=== PATIENT | male | born 1945 | race Caucasian/White ===

== ENCOUNTER 2017-09-08 09:10 | Emergency (ER) | payer MEDICARE, OTHER, SELFPAY ==
[2017-09-08 09:11] VITALS: BP 126/52; PULSE 55; RESP 18; TEMP 36.8; O2SAT 99; BMI 25.3
--- NOTE | 2017-09-08 09:21 | RAD_ITS ---
STUDY: X-RAY - LEFT ANKLE REASON FOR EXAM: Male, 72 years old. Pain following a fall. TECHNIQUE: 3 view(s) of the ankle. COMPARISON: None. FINDINGS: There is a nondisplaced oblique fracture of the lateral malleolus. Normal medial and lateral malleoli. Normal tibiotalar articulation and ankle mortise. Normal visualized talus and calcaneus. The visualized subtalar, talonavicular, calcaneocuboid and tarsal articulations are normal. Soft tissue swelling. RAD/Ankle min 3 Views IMPRESSION: Nondisplaced oblique fracture of the lateral malleolus with overlying soft tissue swelling. Electronically Signed: Jaziel Hamm MD at 9:49 EST Tel [phone], Service support ,
--- NOTE | 2017-09-08 09:25 | ED.VISSUMM ---
- ER Visit Summary Date of Service: 09/08/17 Chief Complaint: Left ankle injury History of Present Illness: The patient is a 72 M [place] after slipping on the ice and injuring his left ankle. He localizes the pain to the outer aspect of his ankle. He denies paresthesia, anesthesia or motor weakness. He denies prior injury. He denies symptoms of claudication. He is a non-smoker and denies history of diabetes. He denies knee or hip pain. He denies striking his head. He is on Coumadin. Physical Examination: Blood pressure is 126/52 and pulse is 55, which are outside the norm. Examination of left ankle reveals swelling and pain palpation of the lateral malleolus. There is no pain the patient of the medial malleolus. There is no laxity with drawer testing. There is no pain the patient the base of fifth metatarsal. DP pulses absent PT pulses 2+. He does have stigmata peripheral vascular disease with absence of hair on the toes and absence of hair distal portion of the leg. Test Results: Review x-ray of the ankle reveals a nondisplaced spiral oblique fracture distal fibula at the joint line without widening of the mortise. Emergency Department Course and Treatment: Three-view x-ray of the ankle was obtained to evaluate for fracture pain medicine was offered and patient declined. Treatment Plan: Posterior short leg plaster splint for mobilization. Case was discussed with Dr. Pranav Hsu who is on-call for orthopedics. Disposition: Discharge to home with outpatient orthopedic follow-up in 5-7 days Impression: Acute left ankle fracture distal fibula initial encounter This note was generated with [employer] dictation software. It may contain incorrect words, spelling, and punctuation that were not noted in review of the chart prior to signing ED Disposition - Plan for ED Patient: Disposition: Home or Assisted Living Chief Complaint: Lower Extremity Injury Instructions: ED Fx Ankle Lateral Malleolus Referrals: Alejandra Lee MD [Primary Care Provider] - Pranav Hsu DO [STAFF PHYSICIAN] - 5-7 Days Additional Instructions: Keep left foot elevated the first 3-4 days. Elevation means your toes above your nose. Ice 20-30 minutes of time 6-8 times a day for 2-3 days.
--- NOTE | 2017-09-08 11:04 | ED.VISSUMM ---
- ER Visit Summary Date of Service: 09/08/17 Chief Complaint: [] History of Present Illness: The patient is a 72 M [] Physical Examination: [] Test Results: [] Emergency Department Course and Treatment: [] Treatment Plan: [] Disposition: [] Impression: [] This note was generated with [employer] dictation software. It may contain incorrect words, spelling, and punctuation that were not noted in review of the chart prior to signing ED Disposition - Plan for ED Patient: Disposition: Home or Assisted Living Chief Complaint: Lower Extremity Injury Instructions: ED Fx Ankle Lateral Malleolus Referrals: Alejandra Lee MD [Primary Care Provider] - Pranav Hsu DO [STAFF PHYSICIAN] - 5-7 Days Additional Instructions: Keep left foot elevated the first 3-4 days. Elevation means your toes above your nose. Ice 20-30 minutes of time 6-8 times a day for 2-3 days.
[2017-09-08 11:27] VITALS: BP 141/81; PULSE 52; RESP 14; O2SAT 99
--- NOTE | 2017-09-08 11:32 | ED.RN ---
Verbal and written d/c instructions given. All questions answered. Skin w/d. ABCs intact. Gait steady out of department.
== END 2017-09-08 11:30 | disposition home or self-care (01) ==
PROVIDERS: Emergency Provider Emergency Medicine; Family Provider Internal Medicine; PCP Internal Medicine
DX: S82.65XA Nondisplaced fracture of lateral malleolus of left fibula, initial encounter for closed fracture (principal); W00.0XXA Fall on same level due to ice and snow, initial encounter; Y93.9 Activity, unspecified; Y92.9 Unspecified place or not applicable; Y99.9 Unspecified external cause status; I48.91 Unspecified atrial fibrillation; I73.9 Peripheral vascular disease, unspecified; Z79.01 Long term (current) use of anticoagulants; Z79.899 Other long term (current) drug therapy
CPT/HCPCS: 29505; 73610; 99283

== ENCOUNTER → 2019-01-07 10:08 | Outpatient (CLI) | payer MEDICARE, OTHER, SELFPAY ==
[2019-01-07 10:25] LABS: International Normalized Ratio 2.8
== END ==
PROVIDERS: PCP Internal Medicine; Visit Provider Internal Medicine
DX: I48.91 Unspecified atrial fibrillation (principal)
CPT/HCPCS: 85610

== ENCOUNTER 2019-02-15 17:00 | Outpatient (RCR) | payer MEDICARE, OTHER, SELFPAY ==
--- NOTE | 2018-12-24 13:21 | HP.PTEVAL_ITS ---
Patient's Visit Information GAGANDEEP Marion DUARTE is a 73 year old M referred to Physical Therapy by Alejandra Lee MD with a diagnosis of LEFT SHOULDER IMPINGEMENT. Date of Evaluation: 12/24/18 Physical Therapist: Froilan Bay PT, Cert MDT, OCS - Visit Plan Frequency: 2x /Week Duration: 4 Weeks Plan: PRECAUTIONS: PACEMAKER. INTERVENTIONS TO INCLUDE RTC /SCAPULAR STRENGTHENING ,MODALTIES PRN - Subjective Findings: This 73 y/o male presents to physical therapy with left shoulder pain.This patient has had for 4 months ago ,seen DR at [facility] did some exercises . Sympoms got better. But currently ,pain is more sore work at house overhead activities. Left shoulder grossly described as ache and tingling in arm . Aggravated factors rest ,extreme overhead activities . Symptoms affects sleeping on left side. Symmtoms better with movement. Dr was provided injection. Patient has had pain in left shoulder few years ago. Patient symptoms affects ADL'S and housework tasks. Patient symptoms affect QOL.PRECAUTION: PACEMAKER. SOCIAL: . VOCATION: retired - Pain Left Shoulder Pain Intensity (Out of 10): 3 Pain Intensity Range: 10 - Objective POSTURE: rounded shoulders ,head foward. PALAPTION: UNREMARKABLE. NEURO: intact ,some tingling. AROM: flexion 150 degrees,abduction 150 degrees,ER 88 degrees,IR 75 degrees. FUNCTIONAL TEST: BEHIND NECK C5,IR L1. MMT: RTC 4/5 ,DELTOID 4-/5,SCAPULAR STRENGTH 3+/5 - Special Tests C/S Radiculapathy - Left Upper limb tension test: Negative C/S Radiculapathy - Right Upper limb tension test: Negative C/S Radiculapathy - Left Spurlings: Negative C/S Radiculapathy - Right Spurlings: Negative C/S Radiculapathy - Left Cervical distraction: Negative C/S Radiculapathy - Right Cervical distraction: Negative Vertebral Artery Test: Negative L Shoulder External Rotation Lag Test - RC Tear: Negative L Shoulder Supine Impingement Test - RC Tear: Negative L Shoulder Lift Off Test - Subscapular Tear: Negative L Shoulder Drop Sign - IS Test: Negative L Shoulder Empty Can - SS: Negative L Shoulder Neer - Impingement: Negative L Shoulder Geronimo Ciro - Impingement: Negative - Goals Goal 1:: Independant with HEP. Goal Time Frame: 2-4 Weeks Goal 2:: Independant with posture for ADL'S Goal Time Frame: 2-4 Weeks Goal 3:: Decrease pain left shoulder by 60% or greater to improve function Goal Time Frame: 2-4 Weeks Goal 4:: Patient to increase quick dash shoulder disablity score by 5 points to improve QOL. Goal Time Frame: 2-4 Weeks Goal 5:: Patient to improve ablitity with housework tasks and activities above 90 degrees Goal Time Frame: 2-4 Weeks - Rehabilitation Potential Physical Therapy Diagnosis: This patient has left shoulder pain with OH activities and working overhead with pain impaits function,along with decrease posture. Rehabilitation Potential: Good - Anticipated Interventions Patient/Client Instruction: Educate patient on: Condition, Plan of Care For the Purpose of:: To decrease pain, To increase ROM, To improve muscle performance and motor function, To improve ability to perform ADL's, To increase tolerance to activity/condition/position, To improve ability of physical actions for home/community/work/leisure, To improve health of tissue, To decrease soft tissue restriction, To increase flexibility/ROM, To improve ability to perform tasks related to life management Therapeutic Exercise to Include: Strength training, Postural training, Flexibilty training, Active ROM For the Purpose of:: To decrease pain, To increase ROM, To improve muscle performance and motor function, To improve ability of physical actions for home/community/work/leisure, To improve health of tissue, To decrease soft tissue restriction, To increase flexibility/ROM, To improve ability to perform tasks related to life management TENS: Yes IF ES: Yes Cryotherapy (ice pack, ice massage): Yes Thermo therapy (hot pack): Yes Ultrasound (thermal/non thermal): Yes For the Purpose of:: To decrease pain, To increase ROM, To improve nutrient delivery to tissue, To increase oxygenation perfusion, To improve health of tissue, To decrease soft tissue restriction Thank you for the opportunity to evaluate your patient. For Medicare and Medicare HMO plans, please review the plan of care and approve it. It will need to be FAXED BACK to us at [phone] for Medicare purposes. For Medicare only, by signing this I certify the plan of care. Please let me know if there are questions or concerns regarding this plan of care. Physician Signature: Date:
--- NOTE | 2019-02-15 17:36 | HP.PTDCSUM ---
HP - PT D/C Summary It has been my pleasure to treat GAGANDEEP DUARTE under orders from Alejandra Lee MD, for the diagnosis of LEFT SHOULDER IMPINGEMENT for a total of 6 visit(s). Discharge Date: 02/15/19 Please see the following information for a summary of their discharge status. - Subjective Subjective: More tingling .. exercises help .Sore at when sleeping . Able to perform ADL'S - Pain Left Shoulder Pain Intensity (Out of 10): 1 - Overall Improvement % Improvement: 50 - Objective Objective/Function: POSTURE: mild foward posture. AROM: shoulder flexion 160 ,160 abd ,ER 90 ,IR L1. MMT: RTC 4/5,DELTOID 4/5 - Goals Goal 1:: Independant with HEP. Goal Progress: Goal Met Goal 2:: Independant with posture for ADL'S Goal Progress: Goal Met Goal 3:: Decrease pain left shoulder by 60% or greater to improve function Goal Progress: Progressing Goal 4:: Patient to increase quick dash shoulder disablity score by 5 points to improve QOL. Goal Progress: Goal Met Goal 5:: Patient to improve ablitity with housework tasks and activities above 90 degrees Goal Progress: Goal Met - Plan Plan: D/C TO HEP - D/C Information Discharge Comments: HEP If there are questions or concerns regarding this patient's physical therapy, please feel free to call me at [phone]. Thank you for the referral of this patient. Sincerely, Froilan Bay, PT, Cert MDT, OCS
== END 2019-02-15 19:00 | disposition home or self-care (01) ==
LOC: PT 17:00
PROVIDERS: Family Provider Internal Medicine; PCP Internal Medicine; Visit Provider Internal Medicine
DX: M75.42 Impingement syndrome of left shoulder (principal)
CPT/HCPCS: 97110; 97162

== ENCOUNTER → 2019-02-18 13:37 | Outpatient (CLI) | payer MEDICARE, OTHER, SELFPAY ==
[2019-02-18 14:00] LABS: International Normalized Ratio 2.6; Prothrombin Time (Protime)PT. 27.7 SECONDS (11.7-14.9)
== END ==
PROVIDERS: Family Provider Internal Medicine; PCP Internal Medicine; Referring Provider Nurse Practitioner Primary Care; Visit Provider Nurse Practitioner Primary Care
DX: I48.91 Unspecified atrial fibrillation (principal)
CPT/HCPCS: 85610

== ENCOUNTER → 2019-03-29 15:06 | Outpatient (CLI) | payer MEDICARE, OTHER, SELFPAY ==
[2019-03-29 16:14] LABS: Prothrombin Time (Protime)PT. 30.9 SECONDS (11.7-14.9)
== END ==
PROVIDERS: Family Provider Internal Medicine; PCP Internal Medicine; Referring Provider Nurse Practitioner Primary Care; Visit Provider Nurse Practitioner Primary Care
DX: I48.91 Unspecified atrial fibrillation (principal)
CPT/HCPCS: 85610

== ENCOUNTER → 2019-10-08 15:59 | Outpatient (CLI) | payer MEDICARE, OTHER, SELFPAY ==
[2019-09-06 11:41] VITALS: BMI 25.3
--- NOTE | 2019-10-08 16:06 | CT_ITS ---
STUDY: CTA CHEST REASON FOR EXAM: Male, 74 years old. SOB, ELEVATED D-DIMER RADIATION DOSAGE (If Supplied By Facility): CTDIvol = ( 9.65 ) mGy, DLP = ( 258.67 ) mGycm TECHNIQUE: The examination was performed with the intravenous administration of 100 CC ISOVUE 370. Post-processing of the angiographic images was performed, with multiplanar reformation and 3D reconstruction. Individualized dose optimization techniques were used for this CT. COMPARISON: None. FINDINGS: Normal enhancement of the main pulmonary artery and right and left pulmonary arteries. Normal enhancement of the bilateral peripheral pulmonary arteries. There is no demonstrated pulmonary embolism. Atherosclerotic changes of the aorta with aneurysmal dilatation of the ascending aorta measuring approximately 4.8 x 4.6 cm. There is no demonstrated aortic dissection. Postop change status post median sternotomy and CABG. Heart is markedly enlarged and there is multivessel coronary artery calcification as well as left ventricular pericardial calcification. Multiple small subcentimeter hilar and mediastinal nodes.. Normal visualized trachea and bronchi. The lungs are well expanded. There is thickening of the intralobular septae and subpleural interstitial thickening more pronounced in the right lung as well as emphysematous changes most severe in the lower lobes.. Tiny calcified granuloma in right upper lobe. Mild subsegmental atelectasis in the right upper lobe. There is a small amount of loculated fluid in the right major fissure Normal chest wall structures. Dorsal spine demonstrates degenerative changes. Normal visualized upper abdomen. CT/CTA Chest W/WO Contrast IMPRESSION: Nonspecific diffuse interstitial thickening more severe in the right lung. ASHD with aneurysmal dilatation of the proximal ascending aorta measuring approximately 4.8 x 4.6 cm.. No evidence for pulmonary emboli Electronically Signed: Brice Anderson MD at 16:47 EST , Service support ,
== END ==
PROVIDERS: PCP Internal Medicine; Referring Provider Internal Medicine; Visit Provider Internal Medicine
DX: R06.02 Shortness of breath (principal); R79.89 Other specified abnormal findings of blood chemistry
CPT/HCPCS: 71275; Q9967

== ENCOUNTER → 2019-12-31 | Outpatient (CLI) | payer MEDICARE, OTHER, SELFPAY ==
[2019-09-06 11:41] VITALS: BMI 25.3
[2019-12-31 12:47] LABS: Prothrombin Time (Protime)PT. 48.3 SECONDS (11.7-14.9)
[2019-12-31 12:55] LABS: International Normalized Ratio 5.3
== END | disposition home or self-care (01) ==
LOC: LABSPEC 12:16
PROVIDERS: PCP Internal Medicine; Referring Provider Internal Medicine; Visit Provider Internal Medicine
DX: I48.91 Unspecified atrial fibrillation (principal); Z79.01 Long term (current) use of anticoagulants; Z95.2 Presence of prosthetic heart valve
CPT/HCPCS: 85610

== ENCOUNTER 2022-02-28 12:32 | Emergency (ER) | payer MEDICARE, OTHER, SELFPAY ==
[2022-02-28 12:32] VITALS: BP 116/68; PULSE 38; RESP 16; TEMP 36.6; O2SAT 98; BMI 24.4
--- NOTE | 2022-02-28 12:46 | CT_ITS ---
EXAM: CT HEAD WITHOUT INTRAVENOUS CONTRAST CLINICAL INDICATION: head injury TECHNIQUE: Multiple axial images were obtained of the head without intravenous contrast. This CT exam was performed using one or more of the following dose reduction techniques: automated exposure control, adjustment of the mA and/or kV according to patient size, and/or use of iterative reconstruction technique. This report was created using [employer] report generation technology. COMPARISON: None. FINDINGS: BRAIN AND EXTRA-AXIAL SPACES: Prominence of the cortical sulci and ventricles consistent with volume loss change. No intra- or extra-axial hemorrhage. No evidence of acute infarct. No intracranial mass or mass effect. There is preservation of the schroeder/white matter interface. Posterior fossa structures are unremarkable. Basal cisterns are patent. BONES/JOINTS: Unremarkable. No discrete lytic or blastic abnormalities. SINUSES: Unremarkable as visualized. Clear. MASTOID AIR CELLS: Unremarkable. Clear. ORBITS: Visualized globes, extraocular muscles, optic nerves and retrobulbar fat appear unremarkable. CT/Brain/Head without Contrast IMPRESSION: 1. No acute intracranial abnormality. 2. Senescent changes. Electronically Signed: Demetris Walker MD at 13:22 EDT ,
--- NOTE | 2022-02-28 12:46 | CT_ITS ---
EXAM: CT MAXILLOFACIAL WITHOUT INTRAVENOUS CONTRAST CLINICAL INDICATION: head injury TECHNIQUE: Helically acquired images were obtained of the face without intravenous contrast. This CT exam was performed using one or more of the following dose reduction techniques: automated exposure control, adjustment of the mA and/or kV according to patient size, and/or use of iterative reconstruction technique. This report was created using [employer] report generation technology. COMPARISON: None. FINDINGS: There is a septum is deviated to the left and associated with septal spur. No displaced fracture. No discrete lytic or blastic abnormalities. SOFT TISSUES: Mild left periorbital soft tissue swelling. No discrete fluid collections. ORBITS: Both globes are unremarkable. Extraocular muscles are normal. Retrobulbar fat appears unremarkable. SINUSES: Bilateral jacobo bullosa. MASTOID AIR CELLS: Unremarkable as visualized. Clear. DENTAL: No acute findings. No periodontal osseous erosion. CT/Sinus/Facial Bone IMPRESSION: No acute facial or orbital fracture. Electronically Signed: Demetris Walker MD at 13:26 EDT ,
--- NOTE | 2022-02-28 12:47 | EDS_ITS ---
HPI <MERLIN Thomas - Last Filed: 02/28/22 14:30> HPI - Fall History of Present Illness Chief Complaint: Fall Narrative Narrative: At 6 AM today the patient tripped on something lying on his stairs and fell down 2 steps and struck the left side of his head on a china cabinet. No LOC. He has a small laceration to the left latter-day and small abrasions to the left forearm and left leg. He takes Coumadin for remote mitral valve replacement. He denies headache, visual changes, nausea or vomiting. PFSH <MERLIN Thomas - Last Filed: 02/28/22 14:30> [facility] Medical History (Updated 02/28/22 @ 13:51 by MERLIN Thomas) H/O measles Mitral and aortic heart valve diseases, unspecified Home Medications carvedilol 3.125 mg tablet 3.125 mg PO BID 08/27/17 [History Last Taken Unknown] citalopram 10 mg/5 mL oral solution 10 mg PO QDAY 08/27/17 [History Last Taken Unknown] fluticasone propionate 50 mcg/actuation nasal spray,suspension (Flonase Allergy Relief) 50 mcg intranasal ONCE 08/27/17 [History Last Taken Unknown] warfarin 2 mg tablet 2 mg PO QDAY 08/27/17 [History Last Taken Unknown] Allergy/AdvReac Type Severity Reaction Status Date / Time No Known Allergies Allergy Verified 02/28/22 12:35 Family History Other CAD (coronary artery disease) CVA (cerebral vascular accident) Heart disease Social History Smoking Status: Never smoker ROS <MERLIN Thomas - Last Filed: 02/28/22 14:30> ROS ED ROS Narrative Constitutional: Negative for fever, chills, malaise. Eyes: Negative for visual change. ENT: Negative for sore throat, ear pain, rhinorrhea. CVS: Negative for palpitations, chest pain, syncope. Respiratory: Negative for shortness of breath, cough. GI: Negative for abdominal pain, nausea, vomiting. : Negative for dysuria, hematuria or frequency. Neuro: Negative for headache, motor/sensory dysfunction. Skin: Positive for abrasions. Musc: Negative for joint pain, swelling, trauma. Heme: Negative for easy bruising, bleeding, lymphadenopathy. EXAM <MERLIN Thomas - Last Filed: 02/28/22 14:30> Physical Exam Narrative Exam Narrative: CONST: Patient sitting in no acute distress. EYES: Normal inspection. PERRLA, EOMI. ENT: T shaped laceration on left latter-day (2cm x 2 cm) with mild tenderness but no deformity or crepitus, left periorbital ecchymosis, no step-offs of the orbital rim, no other tenderness to the facial bones. NECK: Normal inspection. No midline spinal tenderness, no step off or crepitus. RESP: No respiratory distress, CTAB. CVS: Regular rate and rhythm, no murmur, no gallop. ABD: Soft and nontender, no guarding or rebound, nondistended. Pelvis: Stable, nontender. Back: Normal inspection, no midline spinal tenderness, no step off or crepitus. SKIN: Small superficial abrasions left anterior mid forearm and left distal vázquez, no associated bony tenderness EXTREMITIES: Normal appearance, full range of motion, 2+ radial and DP pulses. NEURO: Oriented x4. PSYCH: Normal affect. Const Vital Signs: 02/28/22 12:32 02/28/22 13:14 Temperature 98 F Temperature Source Temporal Pulse Rate 38 L Respiratory Rate 16 Respiratory Effort Normal Non-Labored Blood Pressure 116/68 Blood Pressure Mean 84 Pulse Ox 98 Oxygen Delivery Method Room Air Room Air <Dr. Da Tanner DO - Last Filed: 02/28/22 19:16> Physical Exam Const Vital Signs: 02/28/22 12:32 02/28/22 13:14 Temperature 98 F Temperature Source Temporal Pulse Rate 38 L Respiratory Rate 16 Respiratory Effort Normal Non-Labored Blood Pressure 116/68 Blood Pressure Mean 84 Pulse Ox 98 Oxygen Delivery Method Room Air Room Air MDM <MERLIN Thomas - Last Filed: 02/28/22 14:30> [facility] Narrative Medical decision making narrative: Patient had a mechanical fall with closed head injury without loss of consciousness. He is on Coumadin. He has a 2 x 2 cm T-shaped laceration on the left latter-day and left periorbital bruising. No hemotympanum or septal nasal hematoma. Pupils are equal round and reactive with no entrapment. He also has a small abrasion on the left arm and left lower leg but no bony tenderness. CT brain/C-spine/facial bones all negative for traumatic findings. The superior 2 cm portion of the left latter-day laceration requires closure. Area was anesthetized with 2 cc of 1% lidocaine with epinephrine and thoroughly cleansed with sterile saline. Prepped and draped with sterile conditions and closed with 3 simple interrupted sutures of 5-0 Ethilon. Tetanus is up-to-date. We discussed wound care and suture removal in 4 to 5 days. Patient given head injury return precautions and was discharged in stable condition. Diagnoses 1. Closed head injury without loss of consciousness 2. Facial contusions 3. Facial laceration?simple suture repair 4. Left arm and leg abrasions Radiography Diagnostic Testing: Clinical Impression(s) from Imaging Studies Brain CT 02/28/22 12:46 IMPRESSION: 1. No acute intracranial abnormality. 2. Senescent changes. Electronically Signed: Demetris Walker MD at 13:22 EDT , Facial/Sinus 02/28/22 12:46 IMPRESSION: No acute facial or orbital fracture. Electronically Signed: Demetris Walker MD at 13:26 EDT , Cervical Spine CT 02/28/22 12:53 IMPRESSION: 1. No acute cervical spine fracture or subluxation. 2. Prominent spondylosis. Electronically Signed: Demetris Walker MD at 13:28 EDT , <Dr. Da Tanner, DO - Last Filed: 02/28/22 19:16> [facility] MDM Narrative Medical decision making narrative: This patient was seen with a PA/PIGMENT PROCESSOR Individually assessed they patient including history and physical. I have reviewed everything on the chart that is available and agree with the documentation provided by the PA/PIGMENT PROCESSOR including discussion about the assessment, treatment plan, discussion, and return precautions. Patient seen and evaluated for mechanical fall. He has a slight laceration to the left upper latter-day region. He has no skull deformity. He is awake and alert and in no distress. Neurologically intact. He is not having any neck pain or trouble ranging his neck. He has some superficial abrasions on his left arm and left leg without any bony tenderness to suspect fracture. Patient is anticoagulated on Coumadin and did have a CT of the brain and cervical spine which are negative. CT of the facial bones is also normal. I did have the PA sutured the laceration. See procedure note. Patient tolerated procedure well. Wound care and monitoring for signs of infection was discussed with the patient. Suture removal in 5 to 7 days. Patient had a mechanical fall with closed head injury without loss of consciousness. He is on Coumadin. He has a 2 x 2 cm T-shaped laceration on the left latter-day and left periorbital bruising. No hemotympanum or septal nasal hematoma. Pupils are equal round and reactive with no entrapment. He also has a small abrasion on the left arm and left lower leg but no bony tenderness. CT brain/C-spine/facial bones all negative for traumatic findings. The superior 2 cm portion of the left latter-day laceration requires closure. Area was anesthetized with 2 cc of 1% lidocaine with epinephrine and thoroughly cleansed with sterile saline. Prepped and draped with sterile conditions and closed with 3 simple interrupted sutures of 5-0 Ethilon. Tetanus is up-to-date. We discussed wound care and suture removal in 4 to 5 days. Patient given head injury return precautions and was discharged in stable condition. Diagnoses 1. Closed head injury without loss of consciousness 2. Facial contusions 3. Facial laceration?simple suture repair 4. Left arm and leg abrasions 5. Mechanical fall Radiography Diagnostic Testing: Clinical Impression(s) from Imaging Studies Brain CT 02/28/22 12:46 IMPRESSION: 1. No acute intracranial abnormality. 2. Senescent changes. Electronically Signed: Demetris Walker MD at 13:22 EDT Reading Location ID and State: [facility] / [place] Tel , Service support , Facial/Sinus 02/28/22 12:46 IMPRESSION: No acute facial or orbital fracture. Electronically Signed: Demetris Walker MD at 13:26 EDT , Cervical Spine CT 02/28/22 12:53 IMPRESSION: 1. No acute cervical spine fracture or subluxation. 2. Prominent spondylosis. Electronically Signed: Demetris Walker MD at 13:28 EDT , Discharge Plan Triage Chief Complaint: Fall ED Midlevel Provider: [facility] ED Provider: Da Tanner Dx/Rx/DC Orders Clinical Impression: Closed head injury, Facial laceration Instructions: ED Laceration, Chin, Suture or Tape, ED Head Injury (Adult) Prescriptions: No Action fluticasone propionate [Flonase Allergy Relief] 50 mcg/actuation spray,suspension 50 mcg INTRANASAL ONCE citalopram 10 mg/5 mL solution 10 mg PO QDAY warfarin 2 mg tablet 2 mg PO QDAY carvedilol 3.125 mg tablet 3.125 mg PO BID Primary Care Provider: Alejandra Lee Referrals: Alejandra Lee MD [Primary Care Provider] - Activity Restrictions/Additional Instructions: Your stitches need removed in 4-5 days. You can shower as normal and keep it clean. After hitting your head if you develop a severe headache, vomiting, confusion or any new symptoms that concern you return to the ER. Disposition Disposition: Home, Self Care Discharge Date/Time: 02/28/22 14:38
--- NOTE | 2022-02-28 12:53 | CT_ITS ---
EXAM: CT CERVICAL SPINE WITHOUT INTRAVENOUS CONTRAST CLINICAL INDICATION: neck pain TECHNIQUE: Helically acquired images were obtained of the cervical spine without intravenous contrast. 2D reformatted images were reviewed. This CT exam was performed using one or more of the following dose reduction techniques: automated exposure control, adjustment of the mA and/or kV according to patient size, and/or use of iterative reconstruction technique. This report was created using [employer] report generation technology. COMPARISON: None. FINDINGS: VERTEBRAE: Unremarkable. No fracture. No traumatic subluxation. No discrete lytic or blastic abnormality. Normal alignment. Normal craniocervical junction and cervicothoracic junction. DISCS/SPINAL CANAL/NEURAL FORAMINA: Multilevel disc space narrowing most prominent at C5-6 and C6-7. Multilevel facet arthropathy. Mild narrowing of the spinal canal at C5-6 and C6-7 related to disc osteophyte complexes. Multilevel neural foraminal narrowing related to uncinate joint hypertrophy. SOFT TISSUES: Unremarkable. No prevertebral soft tissue swelling. LYMPH NODES: Unremarkable. No cervical adenopathy. LUNG APICES: Unremarkable as visualized. Clear. CT/Spine Cervical without Contras IMPRESSION: 1. No acute cervical spine fracture or subluxation. 2. Prominent spondylosis. Electronically Signed: Demetris Walker MD at 13:28 EDT ,
== END 2022-02-28 14:38 | disposition home or self-care (01) ==
PROVIDERS: Emergency Provider Student in an Organized Health Care Education/Training Program; PCP Internal Medicine; Visit Provider Student in an Organized Health Care Education/Training Program
DX: S01.81XA Laceration without foreign body of other part of head, initial encounter (principal); S05.12XA Contusion of eyeball and orbital tissues, left eye, initial encounter; S50.812A Abrasion of left forearm, initial encounter; S80.812A Abrasion, left lower leg, initial encounter; W10.9XXA Fall (on) (from) unspecified stairs and steps, initial encounter; Z79.01 Long term (current) use of anticoagulants; Z79.899 Other long term (current) drug therapy; Z95.2 Presence of prosthetic heart valve
CPT/HCPCS: 12011; 70450; 70486; 72125; 99282

== ENCOUNTER → 2022-04-22 | Outpatient (CLI) | payer MEDICARE, OTHER, SELFPAY ==
--- NOTE | 2022-04-22 13:57 | PCM.PR.HP ---
History of Present Illness Arrival date:: 04/22/22 Arrival time:: 12:45 Date of Referral:: 04/02/22 Date of Evaluation: 04/22/22 Referring Physician: Dr. Nancy Sales @ [facility] Pulmonary Medicine Primary Diagnosis: Interstitial Lung Disease History of Present Illness: Interstitial Lung Disease/ IPF mMRC Breathless Scale: When is the patient short of breath? Y/N Grade: Description of Breathlessness: 0 I only get breathless with strenuous exercise. 1 I get short of breath when hurrying on level ground or walking up a slight hill. 2 On level ground, I walk slower than people of the same age because of breathless, or have to stop for breath when walking at my own pace. 3 I stop for breath after walking 100 yards or after a few minutes on level ground. 4 I am too breathless to leave the house or I am breathless when dressing. Respiratory Problems: Yes: Fatigue, Wheezing, Able to Speak in Full Sentences, Anxiety, Panic, Dyspnea with Activity No: Dizziness, Ankle Swelling, Cough with Secretions - Secretions Thick:: No Hx of Sleep Apnea: No Do you snore loudly (louder than talking or can be heard through closed doors)?: No Do you often feel tired/ fatigued/ sleepy during daytime?: Yes Has anyone observed you stop breathing during sleep?: No History of Hypertension (for STOP score): Yes STOP Results: Positive Home Medications: Home Medications carvedilol 3.125 mg tablet 3.125 mg PO BID 08/27/17 citalopram 10 mg/5 mL oral solution 10 mg PO QDAY 08/27/17 fluticasone propionate 50 mcg/actuation nasal spray,suspension (Flonase Allergy Relief) 50 mcg intranasal ONCE 08/27/17 warfarin 2 mg tablet 2.5 mg PO QDAY 08/27/17 atorvastatin 20 mg tablet (Lipitor) 20 mg PO DAILY 04/22/22 lisinopril 10 mg tablet 10 mg PO DAILY 04/22/22 pantoprazole 20 mg tablet,delayed release (Protonix) 40 mg PO DAILY 04/22/22 paroxetine HCl 10 mg tablet (Paxil) 10 mg PO DAILY 04/22/22 pirfenidone 801 mg tablet 808 mg PO TID 04/22/22 potassium chloride 10 mEq capsule,extended release 10 meq PO DAILY 04/22/22 sildenafil 25 mg tablet (Viagra) 25 mg PO DAILY 04/22/22 torsemide 20 mg tablet 20 mg PO DAILY 04/22/22 Allergies/Adverse Reactions: Allergies No Known Allergies Allergy (Verified 02/28/22 12:35) Medical Utilization Do you use a peak flow meter at home?: No Do you use a spacer device with your inhalers?: No Number of hospital visits in the last year?: 0 Number of emergency room visits in the last year?: 1 Do you see your physician on a regular schedule?: Yes How often?: 6 months PCP - 6 months Mónica @ Advanced Directives - Advanced Directives Power of [employer]or [employer]: Yes Living Will: Yes Advance Directives Information Provided: No Advance Directives on File: No DNR Order?:: No - MOLST See MOLST form: No Past Medical History - Covid-19 Screening Fever: No Unexplained muscle aches: No Current respiratory symptoms: No Upper respiratory infections symptoms: No - Interstitial Pulmonary Disease Gastro-intestinal symptoms: Yes - gastric upset (chronic) Rao-Pfxs-Vwdewm symptoms: No Has tested positive for COVID-19 in last 30 days: No Date of testin04/22/22 - Fully Vaccinated w/booster Had contact w/person w/symptoms or Covid-19 (+) last 14 days: No Has High Risk Exposures ID'd by Health dept/Inf Control team: No 65 years or older:: Yes Lives in Assisted Living facility:: No Has a chronic lung disease or moderate to severe asthma:: Yes Has a serious heart condition:: Yes Immunocompromised:: No Severely obese (Body Mass Index of 40 or higher):: No Diabetic:: No Has chronic kidney disease undergoing dialysis:: No Has liver disease:: No Medical History: Past Medical History (Last Updated 04/22/22 @ 14:18 by Josesito Mccarthy, [employer], TRUCK DISPATCHER, BS) Anxiety and depression F41.9, F32.A Bradycardia R00.1 Chronic fatigue R53.82 Congestive heart failure (CHF) I50.9 Dyspepsia R10.13 Dyspnea on exertion R06.09 H/O measles Z86.19 H/O sick sinus syndrome Z86.79 History of pneumonia as a child Z87.01 Hyperlipidemia E78.5 Hypertension I10 Inguinal hernia Onset Date: ~2012 K40.90 Interstitial lung disease J84.9 Mitral and aortic heart valve diseases, unspecified I08.0 Mitral valve regurgitation I34.0 Panic attacks F41.0 Permanent atrial fibrillation I48.21 Posterior vitreous detachment of both eyes H43.813 Presence of cardiac pacemaker Z95.0 Shoulder impingement syndrome M75.40 Surgical History: Past Surgical History (Last Updated 04/22/22 @ 14:18 by Josesito Mccarthy, [employer]POR[employer] AIRCRA[employer] MECH[employer]IC, TRUCK DISPATCHER, BS) History of back surgery Onset Date: ~2006 Z98.890 History of inguinal hernia repair Z98.890, Z87.19 Mitral valve replaced Onset Date: ~1989 Z95.2 Family History: Family History (Last Reviewed 10/18/21 @ 11:23 by Mavis Hodge) Other CAD (coronary artery disease) CVA (cerebral vascular accident) Heart disease - Current/ Previous Services Pulmonary Rehab:: No - Comments Comments: DID do cardiac rehab about 9 years ago following mitral valve replacement Social History - Smoking History Smoking Status: Never smoker Hx Tobacco Use: No Hx Smoking Exposure: No - Alcohol Use Alcohol Usage: No - Substance Abuse Hx Substance Use: No - Occupation Occupation (List type of work in comments):: Retired - Hobbies, Recreation, Social Activities Hobbies: Other - grandchildren, 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 work Recreational Activities: I am able to engage in all my recreational activities Functioning ADL/IADL - Current Ability Current Ability: Independent Self-Care (e.g.,grooming, dressing, & bathing), Independent Ambulation, Independent Transfer, Independent Household tasks (e.g., light meal prep, laundry, shopping) - Pt Functioning Prior to Problem Prior Functioning: Self-Care (e.g.,grooming, dressing, & bathing): Independent, Ambulation: Independent, Transfer: Independent, Household tasks (e.g., light meal prep, laundry, shopping): Independent Social Environment - Status Marital Status: - Current Living Arrangements Living Environment:: Spouse - Children How many children do you have?: 2 - daughters Do any of your children live nearby?: No - [facility] - Safety Do you feel safe in your surroundings?: Yes - Assistance Do you need any assistance at home?: no Review of Systems Review of Systems: Right click = Denies (Slash). Left click = Reports (Kimberly) Respiratory: Reports: Cough - persistent dry annoying, SOB upon Exertion, Appetite, Normal, Dizziness/Lightheadedness - has minimized since stopping new medication, Fatigue - has improved since office visit w/Dr. Sales, Sleep, Normal. Denies: SOB at Rest, Sputum production, Wheezing, Sexual changes Is Patient Pain Free?: Yes Pain Location: none, upper extremity - shoulder left arm/rotator cuff issue Pain Level: 0/10 Risk Factor Assessment - Vital Signs Temperature: 97.8 F Pulse Rate: 76 Respiratory Rate: 16 Pulse Ox: 99 Blood Pressure: 109/60 - Obesity Height: 6 ft Weight:: 175 lb Weight in Pounds: 175.0 lbs Weight Source: Estimated by Patient Body Mass Index (BMI): 23.7 Nutritional Referral for Obesity: No - Risk Stratification Risk Guidelines: Lowest Risk: Risk Factor for Smoking, Risk Factor for Dyslipidemia, Risk Factor for Diabetes, Risk Factor for Obesity, Risk Factor for Hypertension, Risk Factor for Sedentary Lifestyle, Risk Factor for Depression Motivation - Motivation to Participate On a scale of 1 to 10, how prepared are you to commit to attending program?: 7 What do you see as barriers to successfully being able to complete the program?: no What do you see as the benefits of succesfully completing the program? In other words, what do you hope to get out of participating in the program?: hopefully less shortness of breath, stamina and energy improved Are there issues you are dealing with that will interfere with completing the program?: none Do you have a spouse or signficant other, family or friends who will help support you to complete the program?: yes
--- NOTE | 2022-04-22 13:57 | PCM.PR.TP ---
General Information2 - General Information Admitting Diagnosis: Interstitial Lung Disease - IPF Secondary Diagnosis: HLD, HTN, Cardiac History - Personal Learning Style/Barriers Personal Learning Style:: Written Barriers to Learning: None Educational Classes KS: Breathing Retraining: Initial Assessment, Energy Conservation: Initial Assessment - Education/Goals KS Patient Goals: Increase muscle strength: Initial Assessment, Improve energy level: Initial Assessment, Improve knowledge of lung disease: Initial Assessment, Control panic/anxiety: Initial Assessment, Improve my quality of life: Initial Assessment Exercise - Initial Assessment - Visit Date of Eval: 04/22/22 Session Number:: 0 - PRE-KS EVALUATION - Problem/Goals Problems: Deconditioning, Knowledge deficit exercise safety Goals:: Aerobic exercise 30-60 mins x 12 weeks [36 sessions] - Physician Prescribed Exercise Modalities: Treadmill, Airdyne, NuStep Current METSs:: 3.0 Target HR:: 120 - THRR 92-120 Resting Blood Pressure: 109/60 - Plan Plan and Plan to Review:: Benefits of exercise, Core components of exercise, How to monitor dyspnea level, Exercise intensity, Exercise safety guideline, Home exercise guidelines, Nerissa: 3-4/-13 Nutrition/Wt Mgmt - Initial - Visit Date of Eval: 04/22/22 Session Number:: 0 - PRE-KS EVALUATION - Problems/Goals Goals: BMI 21-25 - Weight Management Admit Height:: 6 ft Admit Weight:: 175 lb Admit BMI:: 23.7 - Intervention Referral to dietitian:: No Will attend diet classes:: Yes Intervention/Plan: Instruct on ideal BMI & set weight loss goal w/patient Psychosocial - Initial Assess - Visit Date of Eval: 04/22/22 Session Number:: 0 - PRE-KS EVALUATION - Problems/Goals History of Emotional Disorders: Anxious, Depression Psychosocial Goals: 1. Patient is free from overwhelming symtoms of depression (or anxiety, 2. Identifies personal stressors & states the strategies for managing, 7. Improved Q.O.L. - Psychosocial Test Tool Used:: Pulmonary QOL, PHQ-9 Questionnaire - Referral to Behavioral Health PS - Interventions: Yes Attend Stress Management Classes, No Referral to Behavioral Health if PHQ-9 score >9:, No Referral to [facility], No Referral to Physician if PHQ-9 if score is 5-9: - Intervention/Plan: See List Interventions/Plan:: Assess stressors,coping strategies & signs of derpression on admission, Instruct/assist pt to develop coping & personal stress Mgt strategies, Instruct patient to recognize signs & symptoms of depression, Instruct patient to recog Oxygen & Oxygen Titration Init - Visit Date of Eval: 04/22/22 Session Number:: 0 - PRE-KS EVALUATION - Initial Assessment Oxygen on Admission: None - Plans Plan: Monitor SpO2 rest & with exercise Reviewed prescribed medications:: Purpose, Schedule, Side effects, Importance of compliance Instruct correct technique/timing & care:: MDI, Return demo use of inhaler Bronchial Hygiene Plan: Hydration, Hand hygiene Core Components - Initial - Visit Date of Eval: 04/22/22 Session Number:: 0 - PRE-KS EVALUATION - Hypertension Hypertension Diagnosis:: Hypertension ICD-10 I10 BP: 109/60 [place] [employer] Hypertension Guidelines: [place] [employer] Hypertension Guidelines. Normal BP Less than 120/80. Elevated BP 120/80. Hypertension Stage 1: BP 130-139/80-89. Hypertesnion Stage 2: BP 140 or higher/90 or higher. Hypertension Crisis: BP higher than 180/120 Blood Pressure: 109/60 - CONTROLLED W/MEDICATIONS Low Sodium diet: No Outcomes/Goals: Able to verbalize/achieve optimal blood pressure <130/80, Incorporates diet changes & exercise for blood pressure control by DC - Tobacco - Initial Assessment Tobacco Program Goals: Complete smoking cessation. Attend education classes. Improve Knowledge Test score Tobacco Use: Non-smoker - Exacerbation Mgmt & Airway Clearance Problems:: No home O2 Hypoxemia Goals:: Hypoxemia managed Plan: Monitor SpO2 rest & with forklift wheel loader correct technique/timing & care:: Return demo use of inhaler Bronchial Hygiene Plan: Hydration, Hand hygiene - Medication Interventions/plans: Instruct on medication effects & side effects Medication Goals: Adherence to prescribed medications Medications: Yes Spacer Core Components - 30 DAYS Core Components - 60 DAYS Core Components - 90 DAYS Core Components - Final Patient Health Questionnaire Initial Assessment 1. Little interest or pleasure in doing things: Several days 2. Feeling down, depressed, or hopeless: Several days 3. Trouble falling or staying asleep, or sleeping too much: Several days 4. Feeling tired or having little energy: Several days 5. Poor appetite or overeating: Not at all 6. Feeling bad about yourself -- or that you are a failure or have let yourself or your family down: Not at all 7. Trouble concentrating on things, such as reading the newspaper or watching television: Not at all 8. Moving or speaking so slowly that other people could have noticed. Or the opposite - being so fidgety or restless that you have been moving around a lot more than usual: Not at all 9. Thoughts that you would be better off , or of hurting yourself in some way: Not at all How difficult have these problems made it for you to do your work, take care of things at home, or get along with other people?: Somewhat difficult Total Score: 4 Knowledge Questionaire (BCKQ) - Information Information: [facility] COPD Knowledge Questionnaire (BCKQ) This questionnaire is designed to find out what you know about your lung problem. It should be completed without help form anyone else. This usually takes between 10 and 20 minutes. Your answers will help us to find out what information you need to help you to understand and manage your lung condition. Basilio the pechanga which you think is the correct answer. Self-Efficacy Initial Assessment We would like to know how confident you are in doing certain activities. Please select your confidence level for:: Select your confidence level for the following using the scale 1-10 where 1 is not at all confident and 10 is totally confident. Your score is the average of all 6 responses. Fatigue: How confident are you that you can keep the fatigue caused by your disease from interfering with the things you want to do? Select Number: 5 Physical Discomfort or Pain: How confident are you that you can keep the physical discomfort or pain of your disease from interfering with the things you want to do? Select Number: 10 Emotional Distress: How confident are you that you can keep the emotional distress caused by your disease from interfering with the things you want to do? Select Number: 8 Other Symptoms or Health Problems: How confident are you that you can keep other symptoms or health problems from interfering with the things you want to do? Select Number: 8 Different Tasks and Activities: How confident are you that you can do the different tasks and activities needed to manage your health condition so as to reduce your need to see a doctor? Select Number: 10 Medication: How confident are you that you can do things other than just taking medication to reduce how much your illness affects your everyday life? Select Number: 10 Total Score:: 8 Nutrition Survey - Nutrition Survey Initial Have you lost >10 lbs over the past 2 months without trying?: No Are you following a special diet at home for diabetes, low fat, or low salt?: No Are you interested in meeting with a dietitian for help understanding your diet?: Yes Do you eat less than 3 meals a day?: No Do you eat fatty meats (ribeiro, sausage, ribs, etc), fried foods, desserts, large amounts of salad dressings, margarine, butter, or cheese most days?: No Do you have food allergies? [Enter types in comment field]: No Do you eat in restaurants more than 3 times a week?: Yes Do you season food with salt, seasoning salt, or garlic salt?: No Do you used canned, boxed, frozen meals, or soups, seasoning packets?: No Total Score:: 2
[2022-04-22 14:32] VITALS: BP 109/60; PULSE 76; RESP 16; TEMP 36.6; O2SAT 99; BMI 23.7
[2022-04-22 15:17] VITALS: BP 109/60; BMI 23.7
== END | disposition home or self-care (01) ==
LOC: PR 15:08
PROVIDERS: PCP Internal Medicine
DX: J84.9 Interstitial pulmonary disease, unspecified (principal)
CPT/HCPCS: 97150; G0239

== ENCOUNTER 2022-05-10 10:30 | Outpatient (RCR) | payer MEDICARE, OTHER, SELFPAY | END 2022-05-10 23:59 | LOC: PR 10:30 | PROVIDERS: PCP Internal Medicine | DX: J84.112 Idiopathic pulmonary fibrosis (principal) | CPT/HCPCS: 97150; G0239 ==

== ENCOUNTER 2022-06-10 10:30 | Outpatient (RCR) | payer MEDICARE, OTHER, SELFPAY | END 2022-06-10 23:59 | LOC: PR 10:30 | PROVIDERS: PCP Internal Medicine | DX: J84.112 Idiopathic pulmonary fibrosis (principal) | CPT/HCPCS: 97150; G0239 ==

== ENCOUNTER 2022-07-10 10:30 | Outpatient (RCR) | payer MEDICARE, OTHER, SELFPAY ==
--- NOTE | 2022-06-21 11:17 | PCM.PR.TP ---
Exercise - 60-Day Assessment - Visit Date of Eval: 06/21/22 Session Number:: 21 - Physician Prescribed Exercise Modalities: Treadmill, Biodyne - Schwinn AirDyne Bike, NuStep Frequency (days/week): 3 Duration (Minutes):: 39:16 Intensity: 60-80% of age predicted maximum heart rate reserve Aerobic Exercise [30-60 min 3-7x/week]:: Progressing Nerissa-14 Current METSs: 5.0 Target HR:: 120 - 92-120 THRR Current RPD:: 3 Maximum Exercise HR:: 94 Maximum Exercise Blood Pressure: 124/52 Minimum SpO2 with exercise: 92 EKG Type: A-Fib with PVCs, vent couplet, vent triplet, abberrant beats - Home Exercise Home Exercise:: Yes Mode: Walking Nutrition/Wt Mgmt - 60-Day - Visit Date of Eval: 06/21/22 Session Number:: 21 - Weight Management Height: 6 ft Weight:: 177 lb BMI: 24.0 Weight Goals Progress:: Goal met Psychosocial - 60-Day - Visit Date of Eval: 06/21/22 Session Number:: 21 - Psychosocial Test Tool Used:: PHQ-9 Questionnaire Referred to MD for counseling:: No - Referral to Behavioral Health PS - Interventions: Yes Attend Stress Management Classes, No Referral to Behavioral Health if PHQ-9 score >9:, No Referral to [facility], No Referral to Physician if PHQ-9 if score is 5-9: - Plan Interventions/Plan:: Assess stressors,coping strategies & signs of derpression on admission, Instruct/assist pt to develop coping & personal stress Mgt strategies, Instruct patient to recognize signs & symptoms of depression, Instruct patient to recog Oxygen & Oxygen Titration 60D - Visit Date of Eval: 06/21/22 Session Number:: 21 - Reassessment Reassessment- 60 Days: Demonstrate knowledge of O2 Rx at rest & w/exercise Breath Sounds:: Clear, Diminished SpO2:: 97 - room air at rest Core Components - Initial Core Components - 30 DAYS Core Components - 60 DAYS - Visit Date of Eval: 06/21/22 Session Number:: 21 - Hypertension Hypertension Diagnosis:: Hypertension ICD-10 I10 Resting Blood Pressure:: 98/42 [place] [employer] Hypertension Guidelines: [place] [employer] Hypertension Guidelines. Normal BP Less than 120/80. Elevated BP 120/80. Hypertension Stage 1: BP 130-139/80-89. Hypertesnion Stage 2: BP 140 or higher/90 or higher. Hypertension Crisis: BP higher than 180/120 Peak Exercise Blood Pressure:: 124/52 Change in medication: No Outcomes/Goals: Able to verbalize/achieve optimal blood pressure <130/80, Incorporates diet changes & exercise for blood pressure control by DC Interventions/plan: Instruct on optimal blood pressure, hypertension & medications, Instruct on effects of sodium, alcohol, stress, exercise &hypertension 60 day Reassessments:: Met - Tobacco - 60-Day Tobacco Program Goals: Complete smoking cessation. Attend education classes. Improve Knowledge Test score Tobacco Use: Non-smoker - Exacerbation Mgmt & Airway Clearance Reassessment: Demonstrates knowledge of O2 Rx at rest, Demonstrates knowledge of O2 Rx with exercise - Medication Medication list reviewed:: Yes Taking medications 100% of the time:: Met Medication reassessment: Yes Pt demonstrates correct technique timing for MDI, Yes Pt demonstrates correct technique timing for DPI, Yes Pt demonstrates correct technique timing for NEB, Yes Pt demonstrates correct technique timing for spacer - Diabetes Diabetes:: No - Heart Failure Documenting weight tahir: No Core Components - 90 DAYS Core Components - Final Patient Health Questionnaire 60-Day Re-eval Assessment 1. Little interest or pleasure in doing things: Not at all 2. Feeling down, depressed, or hopeless: Not at all 3. Trouble falling or staying asleep, or sleeping too much: Several days 4. Feeling tired or having little energy: Several days 5. Poor appetite or overeating: Not at all 6. Feeling bad about yourself -- or that you are a failure or have let yourself or your family down: Not at all 7. Trouble concentrating on things, such as reading the newspaper or watching television: Not at all 8. Moving or speaking so slowly that other people could have noticed. Or the opposite - being so fidgety or restless that you have been moving around a lot more than usual: Not at all 9. Thoughts that you would be better off , or of hurting yourself in some way: Not at all How difficult have these problems made it for you to do your work, take care of things at home, or get along with other people?: Not difficult at all Total Score: 2 Knowledge Questionaire (BCKQ) - Information Information: [place] COPD Knowledge Questionnaire (BCKQ) This questionnaire is designed to find out what you know about your lung problem. It should be completed without help form anyone else. This usually takes between 10 and 20 minutes. Your answers will help us to find out what information you need to help you to understand and manage your lung condition. Basilio the sioux which you think is the correct answer. Self-Efficacy 60-Day Re-eval Assessment We would like to know how confident you are in doing certain activities. Please select your confidence level for:: Select your confidence level for the following using the scale 1-10 where 1 is not at all confident and 10 is totally confident. Your score is the average of all 6 responses. Fatigue: How confident are you that you can keep the fatigue caused by your disease from interfering with the things you want to do? Select Number: 7 Physical Discomfort or Pain: How confident are you that you can keep the physical discomfort or pain of your disease from interfering with the things you want to do? Select Number: 10 Emotional Distress: How confident are you that you can keep the emotional distress caused by your disease from interfering with the things you want to do? Select Number: 9 Other Symptoms or Health Problems: How confident are you that you can keep other symptoms or health problems from interfering with the things you want to do? Select Number: 10 Different Tasks and Activities: How confident are you that you can do the different tasks and activities needed to manage your health condition so as to reduce your need to see a doctor? Select Number: 10 Medication: How confident are you that you can do things other than just taking medication to reduce how much your illness affects your everyday life? Select Number: 10 Total Score:: 9 Nutrition Survey
[2022-06-21 11:25] VITALS: BP 124/52; BP 98/42; O2SAT 97; BMI 24.0
== END 2022-07-10 23:59 ==
LOC: PR 10:30
PROVIDERS: PCP Internal Medicine
DX: J84.112 Idiopathic pulmonary fibrosis (principal)
CPT/HCPCS: 97150; G0239

== ENCOUNTER 2022-07-29 10:30 | Outpatient (RCR) | payer MEDICARE, OTHER, SELFPAY ==
[2022-06-21 11:25] VITALS: BMI 24.0
[2022-07-11 00:33] VITALS: BP 124/52; BP 98/42
--- NOTE | 2022-07-22 08:09 | PCM.PR.TP ---
Exercise - 90-Day Assessment - Visit Date of Eval: 07/22/22 Session Number:: 33 - Physician Prescribed Exercise Modalities: Treadmill, Airdyne, NuStep Frequency (days/week): 3 Duration (minutes): 37:12 Intensity: 60-80% of age predicted maximum heart rate reserve Aerobic Exercise [30-60 min 3-7x/week]:: Met Current METSs:: 5.5 Maximum Exercise HR:: 105 Resting Blood Pressure: 112/60 Maximum Exercise Blood Pressure: 128/62 Minimum SpO2 with exercise: 89 EKG Type: A-fib with PVC, vent couplet, vent triplet, vent trigeminy, abberrant beats - Home Exercise Home Exercise?: Yes Mode: Walking Nutrition/Wt Mgmt - 90-Day - Visit Date of Eval: 07/22/22 Session Number:: 33 - Weight Management Height: 6 ft Weight:: 81.647 kg BMI: 24.4 Weight Goals Progress:: Goal met Psychosocial - 90-Day - Visit Date of Eval: 07/22/22 Session Number:: 33 - Psychosocial Test Referred to MD for counseling:: No Oxygen & Oxygen Titration 90D - Visit Date of Eval: 07/22/22 Session Number:: 33 - Reassessment Breath Sounds:: Clear, Diminished Core Components - Initial Core Components - 30 DAYS Core Components - 60 DAYS Core Components - 90 DAYS - Visit Date of Eval: 07/22/22 Session Number:: 33 - Hypertension Hypertension Diagnosis:: Hypertension ICD-10 I10 Resting Blood Pressure:: 112/60 [place] [employer] Hypertension Guidelines: [place] [employer] Hypertension Guidelines. Normal BP Less than 120/80. Elevated BP 120/80. Hypertension Stage 1: BP 130-139/80-89. Hypertesnion Stage 2: BP 140 or higher/90 or higher. Hypertension Crisis: BP higher than 180/120 Peak Exercise Blood Pressure:: 128/62 Outcomes/Goals: Able to verbalize/achieve optimal blood pressure <130/80, Incorporates diet changes & exercise for blood pressure control by DC, Other additional outcomes/goals Interventions/plan: Instruct on optimal blood pressure, hypertension & medications, Instruct on effects of sodium, alcohol, stress, exercise &hypertension, Other additional plan/interventions - Tobacco - 90-Day Tobacco Program Goals: Complete smoking cessation. Attend education classes. Improve Knowledge Test score Do you have family support?: Yes - Medication Medication list reviewed:: Yes Taking medications 100% of the time:: Met - Diabetes Diabetes:: No - Heart Failure Documenting weight daily: No Core Components - Final Patient Health Questionnaire 90-Day Re-eval Assessment 1. Little interest or pleasure in doing things: Not at all 2. Feeling down, depressed, or hopeless: Not at all 3. Trouble falling or staying asleep, or sleeping too much: Several days 4. Feeling tired or having little energy: Several days 5. Poor appetite or overeating: Not at all 6. Feeling bad about yourself -- or that you are a failure or have let yourself or your family down: Not at all 7. Trouble concentrating on things, such as reading the newspaper or watching television: Not at all 8. Moving or speaking so slowly that other people could have noticed. Or the opposite - being so fidgety or restless that you have been moving around a lot more than usual: Not at all 9. Thoughts that you would be better off , or of hurting yourself in some way: Not at all How difficult have these problems made it for you to do your work, take care of things at home, or get along with other people?: Not difficult at all Total Score: 2 Knowledge Questionaire (BCKQ) - Information Information: [place] COPD Knowledge Questionnaire (BCKQ) This questionnaire is designed to find out what you know about your lung problem. It should be completed without help form anyone else. This usually takes between 10 and 20 minutes. Your answers will help us to find out what information you need to help you to understand and manage your lung condition. Basilio the [place] which you think is the correct answer. Self-Efficacy 90-Day Re-eval Assessment We would like to know how confident you are in doing certain activities. Please select your confidence level for:: Select your confidence level for the following using the scale 1-10 where 1 is not at all confident and 10 is totally confident. Your score is the average of all 6 responses. Fatigue: How confident are you that you can keep the fatigue caused by your disease from interfering with the things you want to do? Select Number: 7 Physical Discomfort or Pain: How confident are you that you can keep the physical discomfort or pain of your disease from interfering with the things you want to do? Select Number: 10 Emotional Distress: How confident are you that you can keep the emotional distress caused by your disease from interfering with the things you want to do? Select Number: 9 Other Symptoms or Health Problems: How confident are you that you can keep other symptoms or health problems from interfering with the things you want to do? Select Number: 10 Different Tasks and Activities: How confident are you that you can do the different tasks and activities needed to manage your health condition so as to reduce your need to see a doctor? Select Number: 10 Medication: How confident are you that you can do things other than just taking medication to reduce how much your illness affects your everyday life? Select Number: 10 Total Score:: 9 Nutrition Survey
[2022-07-22 08:19] VITALS: BP 112/60; BP 128/62; O2SAT 89; BMI 24.4
== END 2022-08-10 23:59 ==
LOC: PR 10:30
PROVIDERS: PCP Internal Medicine
DX: J84.112 Idiopathic pulmonary fibrosis (principal)
CPT/HCPCS: 97150; G0239

== ENCOUNTER → 2022-10-17 | Outpatient (CLI) | payer MEDICARE, SELFPAY ==
[2022-07-22 08:19] VITALS: BMI 24.4
--- NOTE | 2022-10-17 11:24 | US_ITS ---
STUDY: SUPERFICIAL ULTRASOUND - LEFT LATERAL THIGH. REASON FOR EXAM: Male, 77 years old. MASS LL EXTREMITY TECHNIQUE: A superficial ultrasound was performed with real-time and static schroeder-scale imaging. COMPARISON: None. FINDINGS: The palpable abnormality corresponds to a 1.3 cm x 1.5 cm x 0.7 cm heterogeneous well circumscribed density. The patient has a history of a fall. This may represent a resolving hematoma. Follow-up is recommended. US/Ext Non Vasc Limited/Soft Tiss IMPRESSION: 1. Amount to correspond to a 1.3 cm x 1.5 cm x 0.7 cm heterogeneous well-circumscribed density. Apparently, this abnormality occurred following a recent fall. This may represent hematoma. Follow-up is recommended. Electronically Signed: Jaziel Hamm MD at 12:22 EST ,
== END | disposition home or self-care (01) ==
LOC: US 11:23
PROVIDERS: PCP Internal Medicine; Referring Provider Nurse Practitioner; Visit Provider Nurse Practitioner
DX: R22.42 Localized swelling, mass and lump, left lower limb (principal)
CPT/HCPCS: 76882

== ENCOUNTER 2023-01-25 12:58 | Emergency (ER) | payer MEDICARE, SELFPAY ==
[2022-07-22 08:19] VITALS: BMI 24.4
[2023-01-25 12:59] VITALS: BP 132/66; PULSE 63; RESP 16; TEMP 36.2; O2SAT 96; BMI 26.1
[2023-01-25 13:02] VITALS: BP 132/66; PULSE 54; RESP 18; TEMP 36.4; O2SAT 98
--- NOTE | 2023-01-25 13:05 | NURSING ---
NO OLD EKGS
--- NOTE | 2023-01-25 13:20 | EKG12_ITS ---
Test Reason : SOB Blood Pressure : / mmHG Vent. Rate : 065 BPM Atrial Rate : 326 BPM P-R Int : 000 ms QRS Dur : 102 ms QT Int : 420 ms P-R-T Axes : 000 045 164 degrees QTc Int : 436 ms Atrial fibrillation Nonspecificj ST-T changes, PVC's Abnormal ECG Confirmed by PAZ SINGH, VIVIEN ([id number]), editor at large VALERIY SOTO ([id number]) on 01/27/2023 11:00:38 A M Referred By: Confirmed By:TONI MULLEN MD
--- NOTE | 2023-01-25 13:24 | EX.ED.DYSGE1 ---
HPI <MERLIN Hernandez - Last Filed: 01/25/23 17:42> History of Present Illness Chief Complaint: Shortness of Breath Narrative Narrative: Patient presenting today with shortness of breath on exertion and orthopnea that he has had for the past 10 days. He reports when he is sitting up at rest he does not feel short of breath. He usually works out 3 days a week but has been unable to do this due to this because of his symptoms. He reports he just had a recent echocardiogram and was told that his results were stable in comparison to his previous echo. His violin teacher and brickmason helper are with the [facility]. History of idiopathic pulmonary fibrosis. He messaged his violin teacher on Friday and the nurse advised him to come to the emergency department for evaluation. He denies any history of blood clots but is on Coumadin due to hx of atrial fibrillation. PMH includes A-fib, pacemaker placement, artificial mitral valve replacement, IFP, and CHF. He denies any fever, chills, chest pain. PFSH <MERLIN Hernandez - Last Filed: 01/25/23 17:42> PFS Medical History Anxiety and depression Bradycardia Chronic fatigue Congestive heart failure (CHF) Dyspepsia Dyspnea on exertion H/O measles H/O sick sinus syndrome History of pneumonia as a child Hyperlipidemia Hypertension Inguinal hernia (~2011) Interstitial lung disease Mitral and aortic heart valve diseases, unspecified Mitral valve regurgitation Panic attacks Permanent atrial fibrillation Posterior vitreous detachment of both eyes Presence of cardiac pacemaker Shoulder impingement syndrome Home Medications carvedilol 3.125 mg tablet 3.125 mg PO BID 08/27/17 [History Last Taken Unknown] citalopram 10 mg/5 mL oral solution 10 mg PO QDAY 08/27/17 [History Last Taken Unknown] fluticasone propionate 50 mcg/actuation nasal spray,suspension (Flonase Allergy Relief) 50 mcg intranasal ONCE 08/27/17 [History Last Taken Unknown] warfarin 2 mg tablet 2.5 mg PO QDAY 08/27/17 [History Last Taken Unknown] atorvastatin 20 mg tablet (Lipitor) 20 mg PO DAILY 04/22/22 [History Last Taken Unknown] lisinopril 10 mg tablet 10 mg PO DAILY 04/22/22 [History Last Taken Unknown] pantoprazole 20 mg tablet,delayed release (Protonix) 40 mg PO DAILY 04/22/22 [History Last Taken Unknown] paroxetine HCl 10 mg tablet (Paxil) 10 mg PO DAILY 04/22/22 [History Last Taken Unknown] pirfenidone 801 mg tablet 808 mg PO TID 04/22/22 [History Last Taken Unknown] potassium chloride 10 mEq capsule,extended release 10 meq PO DAILY 04/22/22 [History Last Taken Unknown] sildenafil 25 mg tablet (Viagra) 25 mg PO DAILY 04/22/22 [History Last Taken Unknown] torsemide 20 mg tablet 20 mg PO DAILY 04/22/22 [History Last Taken Unknown] Allergy/AdvReac Type Severity Reaction Status Date / Time No Known Allergies Allergy Verified 01/25/23 13:03 Family History Other CAD (coronary artery disease) CVA (cerebral vascular accident) Heart disease Surgical History History of back surgery (~2006) History of inguinal hernia repair Mitral valve replaced (~1989) Social History Smoking Status: Never smoker ROS <MERLIN Hernandez - Last Filed: 01/25/23 17:42> ROS ED Constitutional Constitutional ED: Denies chills or fever(s) Cardiovascular Cardiovascular: Reports orthopnea; Denies chest pain or palpitations Respiratory/Chest Respiratory/Chest: Reports dyspnea on exertion and orthopnea; Denies cough, tachypnea or wheezing Gastrointestinal Gastrointestinal: Denies abdominal pain, nausea or vomiting Musculoskeletal Musculoskeletal: Denies arthralgias or myalgias Integumentary Denies abscess, Abrasions or rash Neurologic Neurologic: Denies weakness EXAM <MERLIN Hernandez - Last Filed: 01/25/23 17:42> Physical Exam Const Vital Signs: 01/25/23 12:59 01/25/23 13:02 01/25/23 13:33 Temperature 97.2 F L 97.6 F L Temperature Source Temporal Temporal Pulse Rate 63 54 L Respiratory Rate 16 18 Respiratory Effort Normal Respiratory Depth Normal Respiratory Pattern Normal Blood Pressure 132/66 H 132/66 H Blood Pressure Mean 88 88 Pulse Ox 96 98 Oxygen Delivery Method Room Air Room Air Room Air 01/25/23 15:00 01/25/23 16:46 Temperature Temperature Source Pulse Rate 65 68 Respiratory Rate 20 H 16 Respiratory Effort Respiratory Depth Respiratory Pattern Blood Pressure 151/75 H 159/68 H Blood Pressure Mean 100 Pulse Ox 93 98 Oxygen Delivery Method Room Air Positive well nourished, well developed and no apparent distress General Appearance ED: well developed HEENT Reports normocephalic and head/scalp atraumatic Mouth ED: Yes moist mucous membranes normal Eyes PERRL and EOMs intact bilaterally Neck full ROM and supple Chest Wall inspection of chest normal Resp normal respiratory effort and clear to auscultation bilaterally Cardio regular rate and regular rhythm GI soft to palpation, non-tender, non-distended and no masses Back/Spine normal ROM and normal to inspection Extremity normal to inspection and full ROM Neuro oriented x3, CN's II-XII intact bilaterally, moves all extremities, no focal motor deficits and no sensory deficits noted Sensorium / Orientation: awake and alert Psych mental status grossly normal and thought process normal Skin no rashes or lesions noted and no wounds <Dr. Francisco Drake DO - Last Filed: 01/25/23 21:44> Physical Exam Const Vital Signs: 01/25/23 12:59 01/25/23 13:02 01/25/23 13:33 Temperature 97.2 F L 97.6 F L Temperature Source Temporal Temporal Pulse Rate 63 54 L Respiratory Rate 16 18 Respiratory Effort Normal Respiratory Depth Normal Respiratory Pattern Normal Blood Pressure 132/66 H 132/66 H Blood Pressure Mean 88 88 Pulse Ox 96 98 Oxygen Delivery Method Room Air Room Air Room Air 01/25/23 15:00 01/25/23 16:46 Temperature Temperature Source Pulse Rate 65 68 Respiratory Rate 20 H 16 Respiratory Effort Respiratory Depth Respiratory Pattern Blood Pressure 151/75 H 159/68 H Blood Pressure Mean 100 Pulse Ox 93 98 Oxygen Delivery Method Room Air MDM <MERLIN Hernandez - Last Filed: 01/25/23 17:42> [facility] Narrative Medical decision making narrative: Patient presenting due to shortness of breath on exertion and orthopnea that he has had over the past 10 days. He is well appearing in no acute distress, he is 98% on room air, he is not tachypneic or visibly short of breath. Not complaining of any chest pain. No peripheral pitting edema. He does have a history of IFP. Labs will be obtained to rule out leukocytosis, anemia, electrolyte abnormality, ACS. EKG will be obtained to rule out arrhythmia and ST elevation. INR will be checked and is WNL, making chance of PE unlikely. Chest x-ray shows suspicious CHF with pulmonary is interstitial edema and right pleural effusion. He did not take his diuretic yesterday, he has been given a dose of Lasix here. Troponin is WNL, there is no ST elevation on EKG, patient is not having ACS. Patient does have an appointment with his brickmason helper on Friday. Given he is not hypoxic, he can be safely discharged home and follow-up with his brickmason helper. He has been given return instructions and is comfortable with plan. Lab Data Attestation: I reviewed the patient's lab results. Lab results narrative: Platelets 143, anion gap 4, BUN 27, BNP 276.8 Labs: Laboratory Results - last 24 hr 01/25/23 01/25/23 01/25/23 13:00 13:00 13:00 WBC 5.7 RBC 4.07 L Hgb 13.2 Hct 41.2 MCV 101.2 H MCH 32.4 H MCHC 32.0 RDW Std Deviation 54.6 H RDW Coeff of Darnell 14.6 Plt Count 143 L MPV 10.7 Immature Gran % (Auto) 0.300 Neut % (Auto) 67.5 Lymph % (Auto) 16.2 L [place] % (Auto) 10.1 H Eos % (Auto) 5.2 H Baso % (Auto) 0.7 Absolute Neuts (auto) 3.9 Absolute Lymphs (auto) 0.93 Nucleated RBC % 0 PT INR Sodium 139 Potassium 4.1 Chloride 105 Carbon Dioxide 30.0 Anion Gap 4 L BUN 27 H Creatinine 1.13 Estim Creat Clear Calc 58.18 Est GFR (MDRD) Af Amer 80 Est GFR (MDRD) Non-Af 67 BUN/Creatinine Ratio 23.9 H Glucose 170 H Calcium 8.7 Troponin I High Sens 22 B-Natriuretic Peptide 276.8 H 01/25/23 13:00 WBC RBC Hgb Hct MCV MCH MCHC RDW Std Deviation RDW Coeff of Darnell Plt Count MPV Immature Gran % (Auto) Neut % (Auto) Lymph % (Auto) [place] % (Auto) Eos % (Auto) Baso % (Auto) Absolute Neuts (auto) Absolute Lymphs (auto) Nucleated RBC % PT 29.6 H INR 2.8 Sodium Potassium Chloride Carbon Dioxide Anion Gap BUN Creatinine Estim Creat Clear Calc Est GFR (MDRD) Af Amer Est GFR (MDRD) Non-Af BUN/Creatinine Ratio Glucose Calcium Troponin I High Sens B-Natriuretic Peptide Radiography X-Ray: Read by ED Physician and Read by Radiologist Diagnostic Testing: Clinical Impression(s) from Imaging Studies Chest X-Ray 01/25/23 13:30 IMPRESSION: Suspicious mild acute CHF with pulmonary interstitial edema and right pleural fluid. The presence or absence of interstitial pneumonitis cannot entirely be excluded. HRCT chest will help clarify. Electronically Signed: Frank Lozano MD at 15:04 EDT , EKG Initial EKG: Comments: 65 bpm, A-fib, no ST elevation, reviewed and interpreted by attending ED physician. <Dr. Francisco Drake, DO - Last Filed: 01/25/23 21:44> [facility] Lab Data Labs: Laboratory Results - last 24 hr 01/25/23 01/25/23 01/25/23 13:00 13:00 13:00 WBC 5.7 RBC 4.07 L Hgb 13.2 Hct 41.2 MCV 101.2 H MCH 32.4 H MCHC 32.0 RDW Std Deviation 54.6 H RDW Coeff of Darnell 14.6 Plt Count 143 L MPV 10.7 Immature Gran % (Auto) 0.300 Neut % (Auto) 67.5 Lymph % (Auto) 16.2 L [place] % (Auto) 10.1 H Eos % (Auto) 5.2 H Baso % (Auto) 0.7 Absolute Neuts (auto) 3.9 Absolute Lymphs (auto) 0.93 Nucleated RBC % 0 PT INR Sodium 139 Potassium 4.1 Chloride 105 Carbon Dioxide 30.0 Anion Gap 4 L BUN 27 H Creatinine 1.13 Estim Creat Clear Calc 58.18 Est GFR (MDRD) Af Amer 80 Est GFR (MDRD) Non-Af 67 BUN/Creatinine Ratio 23.9 H Glucose 170 H Calcium 8.7 Troponin I High Sens 22 B-Natriuretic Peptide 276.8 H 01/25/23 13:00 WBC RBC Hgb Hct MCV MCH MCHC RDW Std Deviation RDW Coeff of Darnell Plt Count MPV Immature Gran % (Auto) Neut % (Auto) Lymph % (Auto) [place] % (Auto) Eos % (Auto) Baso % (Auto) Absolute Neuts (auto) Absolute Lymphs (auto) Nucleated RBC % PT 29.6 H INR 2.8 Sodium Potassium Chloride Carbon Dioxide Anion Gap BUN Creatinine Estim Creat Clear Calc Est GFR (MDRD) Af Amer Est GFR (MDRD) Non-Af BUN/Creatinine Ratio Glucose Calcium Troponin I High Sens B-Natriuretic Peptide Radiography Diagnostic Testing: Clinical Impression(s) from Imaging Studies Chest X-Ray 01/25/23 13:30 IMPRESSION: Suspicious mild acute CHF with pulmonary interstitial edema and right pleural fluid. The presence or absence of interstitial pneumonitis cannot entirely be excluded. HRCT chest will help clarify. Electronically Signed: Frank Lozano MD at 15:04 EDT , Treatment and Re-Evaluation :: I have personally performed a face to face assessment of the patient and have reviewed the TRAMAINE Note. I performed a substantive portion of the visit including all aspects of the following. My goel findings include: History: Patient presents with shortness of breath that became worse today. Patient states his breathing is worse with laying flat. Patient states he has a history of pulmonary fibrosis and congestive heart failure. Patient thinks he missed his dose of his diuretic yesterday. Patient denies any chest pain. Patient denies any nausea or vomiting. Patient denies any fevers or chills. Exam: Vital signs are stable. Patient is afebrile patient is in no acute distress. Patient is not hypoxic. Oral mucosa is pink and moist. Neck is supple. Trachea is midline. There is no JVD. Heart was irregularly irregular. Lungs showed few bibasilar Rales. There is good respiratory effort noted. Abdomen is soft. Bowel sounds are normal. There is no tenderness. Cranial nerves II through XII are intact. There are no focal motor or sensory deficits noted. There is 2+ edema of the lower extremities bilaterally. Medical Decision Making: Differential diagnosis includes congestive heart failure, pneumonia, pneumothorax, cardiac dysrhythmia, cardiac ischemia, and electrolyte abnormality. Chest x-ray will be obtained to assess for congestive heart failure, pulmonary fibrosis, pneumonia, and pneumothorax. EKG will be obtained to assess for cardiac dysrhythmia and cardiac ischemia. CBC will be obtained to assess for leukocytosis and anemia. Basic metabolic profile will be obtained to assess for electrolyte abnormality and renal function. PT with INR will be obtained to assess for coagulopathy. High-sensitivity troponin will be obtained to assess for cardiac ischemia. BNP will be obtained to assess for congestive heart failure. EKG showed atrial fibrillation with a rate of 96. There are no acute ST or T wave changes noted. Chest x-ray was obtained. There are 2 views. There is some mild congestive heart failure noted. There is no acute infiltrate noted. CBC was reviewed and was essentially within normal limits. There is a slight thrombocytopenia with platelet count of 143. PT with INR was reviewed. PT was 29.6 and INR is therapeutic at 2.8. Basic metabolic profile was reviewed. BUN was slightly elevated at 27. Creatinine was normal. Glucose was slightly elevated at 170. High-sensitivity troponin was reviewed and was normal at 22. BNP was reviewed and was slightly elevated to 76.8. Patient was given a dose of Lasix here. Patient was feeling better. Patient was instructed to continue his medications as previously prescribed. Patient was instructed to follow-up with his primary care physician in 5 to 7 days. Patient was instructed return if worse in any way. Patient understood and was agreeable with the plan. All questions were answered. Discharge Plan Triage Chief Complaint: Shortness of Breath ED Midlevel Provider: Edilia Quigley ED Provider: Francisco Drake Dx/Rx/DC Orders Clinical Impression: SOB (shortness of breath), CHF (congestive heart failure), IPF (idiopathic pulmonary fibrosis) Instructions: ED Dyspnea Prescriptions: No Action fluticasone propionate [Flonase Allergy Relief] 50 mcg/actuation spray,suspension 50 mcg INTRANASAL ONCE citalopram 10 mg/5 mL solution 10 mg PO QDAY warfarin 2 mg tablet 2.5 mg PO QDAY carvedilol 3.125 mg tablet 3.125 mg PO BID potassium chloride 10 mEq Capsule, Extended Release 10 meq PO DAILY paroxetine HCl [Paxil] 10 mg Tablet 10 mg PO DAILY atorvastatin [Lipitor] 20 mg Tablet 20 mg PO DAILY torsemide 20 mg Tablet 20 mg PO DAILY sildenafil [Viagra] 25 mg Tablet 25 mg PO DAILY pantoprazole [Protonix] 20 mg Tablet,Delayed Release (Dr/Ec) 40 mg PO DAILY lisinopril 10 mg Tablet 10 mg PO DAILY pirfenidone 801 mg Tablet 808 mg PO TID Rx Instructions: administer with food at the same time(s) each day Primary Care Provider: Alejandra Lee Referrals: Alejandra Lee MD [Primary Care Provider] - 3-5 Days Activity Restrictions/Additional Instructions: Please follow-up with your PCP and return for any worsening of symptoms. Disposition Disposition: Home, Self Care Discharge Date/Time: 01/25/23 16:48
--- NOTE | 2023-01-25 13:30 | RAD_ITS ---
EXAM: XR CHEST, 2 VIEWS CLINICAL INDICATION: shortness of breath TECHNIQUE: Frontal and lateral views of the chest. COMPARISON: No relevant prior studies available. FINDINGS: LUNGS AND PLEURAL SPACES: Prominent pulmonary interstitial lung markings. No confluent infiltrates. No pneumothorax. No effusion. HEART: Cardiomegaly. Linear calcification in the left pericardial wall. Mild pulmonary vascular congestion. MEDIASTINUM: Central airways and mediastinal contour are unremarkable. BONES/JOINTS: Intact sternal wires. SOFT TISSUES: Unremarkable. TUBES, LINES AND DEVICES: Dual-chamber pacing lead tips are in the right atrium and right ventricle. Left pericardial wall calcification. RAD/Chest PA and Lateral IMPRESSION: Suspicious mild acute CHF with pulmonary interstitial edema and right pleural fluid. The presence or absence of interstitial pneumonitis cannot entirely be excluded. HRCT chest will help clarify. Electronically Signed: Frank Lozano MD at 15:04 EDT ,
[2023-01-25 13:33] VITALS: O2SAT 98
[2023-01-25 13:56] LABS: International Normalized Ratio 2.8; Prothrombin Time (Protime)PT. 29.6 SECONDS (11.7-14.9)
[2023-01-25 14:05] LABS: Absolute Lymphocyte Count 0.93 X10^3/uL (0.83-4.51); Absolute Neutrophil Count 3.9 X10^3/uL (2.0-7.7); Basophil# 0.04 X10^3/uL; Basophil% 0.7 % (0-1); Eosinophils% 5.2 % (0-5); Hematocrit 41.2 % (40-54); Hemoglobin 13.2 g/dL (13.0-16.5); Lymphocyte # 0.93 X10^3/ul (0.83-4.51); Lymphocyte % 16.2 % (19-41); Mean Corpuscular Hgb 32.4 pg (27.0-32.0); Mean Corpuscular Volume 101.2 fL (80-94); Mean Platelet Vol. 10.7 fl (6.2-12.0); Monocyte# 0.58 X10^3/uL; Monocyte% 10.1 % (0-10); NRBC Flagged by Analyzer 0 % (0-5); Neutrophil # 3.87 X10^3/uL (2.7-7.7); Neutrophil % 67.5 % (47-70); Platelet Count 143 K/mm3 (150-450); RBC Distribution Width CV 14.6 % (11.6-14.6); RBC Distribution Width SD 54.6 fl (35.1-43.9); Red Blood Count 4.07 M/mm3 (4.6-6.2); White Blood Count 5.7 K/mm3 (4.4-11.0)
[2023-01-25 14:18] LABS: Anion Gap 4 (5-15); BUN 27 mg/dL (7-18); BUN/Creat Ratio 23.9 RATIO (10-20); Calcium,Total 8.7 mg/dL (8.5-10.1); Chloride 105 mmol/L (98-107); Creatinine, Serum 1.13 mg/dL (0.70-1.30); EST Glomerular Filtration Rate 67 mL/min (>60); Est Glom Filt Rate - Afr Amer 80 mL/min (>60); Estimated Creatinine Clearance 58.18 ml/min; Glucose 170 mg/dL (74-106); Potassium 4.1 mmol/L (3.5-5.1); Sodium Level 139 mmol/L (136-145); Troponin-I HS 22 pg/mL (3.0-78.0)
[2023-01-25 14:36] LABS: BNP,B-Type NATRIURETIC PEPTIDE 276.8 pg/mL (0-100)
[2023-01-25 15:00] VITALS: BP 151/75; PULSE 65; RESP 20; O2SAT 93
[2023-01-25] MEDS: Furosemide 40 MG/4 ML Vial IV (16:19)
[2023-01-25 16:46] VITALS: BP 159/68; PULSE 68; RESP 16; O2SAT 98
== END 2023-01-25 16:48 | disposition home or self-care (01) ==
PROVIDERS: Physician Assistant; Emergency Provider Emergency Medicine; PCP Internal Medicine; Visit Provider Emergency Medicine
DX: R06.02 Shortness of breath (principal); I11.0 Hypertensive heart disease with heart failure; I50.9 Heart failure, unspecified; J84.112 Idiopathic pulmonary fibrosis; E78.5 Hyperlipidemia, unspecified
CPT/HCPCS: 71046; 80048; 83880; 84484; 85025; 85610; 93005; 96374; 99283; A4216; J1940

== ENCOUNTER 2023-01-27 14:17 | Emergency (ER) | payer MEDICARE, SELFPAY ==
[2022-07-22 08:19] VITALS: BMI 24.4
[2023-01-27 14:19] VITALS: BP 115/61; PULSE 65; RESP 18; TEMP 36.9; O2SAT 96
[2023-01-27 14:21] VITALS: O2SAT 93; BMI 24.0
[2023-01-27 14:43] VITALS: O2SAT 94
[2023-01-27 15:03] LABS: Absolute Lymphocyte Count 1.68 X10^3/uL (0.83-4.51); Absolute Neutrophil Count 7.1 X10^3/uL (2.0-7.7); Basophil# 0.07 X10^3/uL; Basophil% 0.7 % (0-1); Eosinophil# 0.14 X10^3/uL; Eosinophils% 1.3 % (0-5); Hematocrit 40.4 % (40-54); Hemoglobin 13.1 g/dL (13.0-16.5); Lymphocyte # 1.68 X10^3/ul (0.83-4.51); Lymphocyte % 15.9 % (19-41); Mean Corp Hgb Conc 32.4 g/dL (32-36); Mean Corpuscular Volume 98.5 fL (80-94); Mean Platelet Vol. 10.1 fl (6.2-12.0); Monocyte# 1.57 X10^3/uL; Monocyte% 14.9 % (0-10); NRBC Flagged by Analyzer 0 % (0-5); Neutrophil # 7.07 X10^3/uL (2.7-7.7); Neutrophil % 66.8 % (47-70); POSITIVE DIFFERENTIAL YES; Platelet Count 142 K/mm3 (150-450); RBC Distribution Width CV 14.7 % (11.6-14.6); RBC Distribution Width SD 53.5 fl (35.1-43.9); White Blood Count 10.6 K/mm3 (4.4-11.0)
[2023-01-27 15:07] LABS: Differential Indicated SCAN CRITERIA MET
--- NOTE | 2023-01-27 15:14 | RAD_ITS ---
STUDY: XR Chest 1 View 01/27/2023 3:13 PM REASON FOR EXAM: Male, 77 years old. CHEST PAIN sob COMPARISON: Two days ago. TECHNIQUE: XR Chest 1 View FINDINGS: There are bilateral pleural effusions. There are bilateral infiltrates. There is a left sided pacemaker batterypack. There are multiple median sternotomy wires. Left-sided pericardial calcification. Enlarged heart size. Normal mediastinum. Normal shawna. Prominent appearing increased interstitial lung markings. Normal visualized pulmonary arteries. There is atherosclerotic calcification of the aortic arch with tortuosity. There are diffuse degenerative changes of the visualized thoracic spine. There is degenerative osteoarthritis of the bilateral shoulders. There is no demonstrated abnormality of the visualized soft tissue structures of the upper abdomen. RAD/Chest 1 View (Portable) IMPRESSION: There has been no change in the appearance of the chest since the prior study. Electronically Signed: Alfonzo Garcia MD at 15:30 EDT ,
--- NOTE | 2023-01-27 15:33 | EX.ED.DYSGE1 ---
HPI History of Present Illness Chief Complaint: Shortness of Breath Informant: patient Onset/Context/Timing Onset: Days (10-days) Context: Gradual Onset Narrative Narrative: Patient returns to the ER secondary to continued shortness of breath. He was seen and evaluated 2 days ago with a 10-day history of increased shortness of breath. He does have a history of CHF as well as pulmonary fibrosis. He is not on home oxygen. During his work-up 2 days ago he was not found to be hypoxic. He had evidence of mild CHF. He was given a dose of IV Lasix in the emergency room and continued his outpatient torsemide. He was supposed to see his digital printer today but states he did not feel well enough to drive to [place] so came in here for repeat evaluation. He states he has body aches all over and just feels wiped out. He stayed in bed most of the day today. He has not had a fever. He does have a mild cough. [facility] Medical History Anxiety and depression Bradycardia Chronic fatigue Congestive heart failure (CHF) Dyspepsia Dyspnea on exertion H/O measles H/O sick sinus syndrome History of pneumonia as a child Hyperlipidemia Hypertension Inguinal hernia (~2011) Interstitial lung disease Mitral and aortic heart valve diseases, unspecified Mitral valve regurgitation Panic attacks Permanent atrial fibrillation Posterior vitreous detachment of both eyes Presence of cardiac pacemaker Shoulder impingement syndrome Home Medications carvedilol 3.125 mg tablet 3.125 mg PO BID 08/27/17 [History Last Taken Unknown] citalopram 10 mg/5 mL oral solution 10 mg PO QDAY 08/27/17 [History Last Taken Unknown] fluticasone propionate 50 mcg/actuation nasal spray,suspension (Flonase Allergy Relief) 50 mcg intranasal ONCE 08/27/17 [History Last Taken Unknown] warfarin 2 mg tablet 2.5 mg PO QDAY 08/27/17 [History Last Taken Unknown] atorvastatin 20 mg tablet (Lipitor) 20 mg PO DAILY 04/22/22 [History Last Taken Unknown] lisinopril 10 mg tablet 10 mg PO DAILY 04/22/22 [History Last Taken Unknown] pantoprazole 20 mg tablet,delayed release (Protonix) 40 mg PO DAILY 04/22/22 [History Last Taken Unknown] paroxetine HCl 10 mg tablet (Paxil) 10 mg PO DAILY 04/22/22 [History Last Taken Unknown] pirfenidone 801 mg tablet 808 mg PO TID 04/22/22 [History Last Taken Unknown] potassium chloride 10 mEq capsule,extended release 10 meq PO DAILY 04/22/22 [History Last Taken Unknown] sildenafil 25 mg tablet (Viagra) 25 mg PO DAILY 04/22/22 [History Last Taken Unknown] torsemide 20 mg tablet 20 mg PO DAILY 04/22/22 [History Last Taken Unknown] Allergy/AdvReac Type Severity Reaction Status Date / Time No Known Allergies Allergy Verified 01/27/23 14:21 Family History Other CAD (coronary artery disease) CVA (cerebral vascular accident) Heart disease Surgical History History of back surgery (~2006) History of inguinal hernia repair Mitral valve replaced (~1989) Social History Smoking Status: Never smoker ROS ROS ED Constitutional Constitutional ED: Denies chills or fever(s) Eyes Eyes: Denies change in vision or discharge from eye(s) ENT ENT ED: Denies discharge from eye(s), rhinorrhea or sore throat Cardiovascular Cardiovascular: Denies chest pain or palpitations Respiratory/Chest Respiratory/Chest: Reports cough and dyspnea; Denies sputum Gastrointestinal Gastrointestinal: Denies abdominal pain, nausea or vomiting Genitourinary Genitourinary ED: Denies difficulty urinating or dysuria Musculoskeletal Musculoskeletal: Reports myalgias Integumentary Denies Abrasions or rash Neurologic Neurologic: Reports weakness; Denies headache(s) Psychiatric Psychiatric: Denies anxiety or depression Allergic/Immunologic Allergic/Immunologic ED: Denies lip swelling or urticaria EXAM Physical Exam Const Vital Signs: 01/27/23 14:19 01/27/23 14:21 01/27/23 14:21 Temperature 98.5 F Temperature Source Temporal Pulse Rate 65 Respiratory Rate 18 Blood Pressure 115/61 Blood Pressure Mean 79 Pulse Ox 96 93 Oxygen Delivery Method Room Air Room Air Room Air 01/27/23 14:43 01/27/23 14:43 01/27/23 15:41 Temperature Temperature Source Pulse Rate 61 Respiratory Rate 16 Blood Pressure 136/88 H Blood Pressure Mean 104 Pulse Ox 94 95 Oxygen Delivery Method Room Air Room Air Room Air Positive well nourished and well developed General Appearance ED: well developed HEENT Reports normocephalic and head/scalp atraumatic Eyes PERRL and EOMs intact bilaterally Neck supple Chest Wall inspection of chest normal and palpation of chest normal Resp normal respiratory effort and clear to auscultation bilaterally Cardio regular rate and regular rhythm GI normal to inspection, nondistended, normoactive bowel sounds Palpation: soft Extremity normal to inspection Neuro oriented x3 and no sensory deficits noted Sensorium / Orientation: alert Motor Exam: strength 5/5 throughout Psych mental status grossly normal Skin no rashes or lesions noted MDM MDM MDM Narrative Medical decision making narrative: Patient placed on electronic device monitor. Labwork obtained to evaluate for leukocytosis, anemia, and electrolyte derangement. EKG obtained to evaluate for cardiac arrhythmia/ischemia. Chest x-ray obtained to evaluate for acute lung pathology, cardiac size, or mediastinal abnormality. Walking pulse ox obtained to evaluate for hypoxia with exertion. Lab Data Attestation: I reviewed the patient's lab results. Labs: Laboratory Results - last 24 hr 01/27/23 01/27/23 01/27/23 14:55 14:55 14:55 WBC 10.6 RBC 4.10 L Hgb 13.1 Hct 40.4 MCV 98.5 H MCH 32.0 MCHC 32.4 RDW Std Deviation 53.5 H RDW Coeff of Darnell 14.7 H Plt Count 142 L MPV 10.1 Immature Gran % (Auto) 0.400 Neut % (Auto) 66.8 Lymph % (Auto) 15.9 L Hemphill % (Auto) 14.9 H Eos % (Auto) 1.3 Baso % (Auto) 0.7 Absolute Neuts (auto) 7.1 Absolute Lymphs (auto) 1.68 Nucleated RBC % 0 Differential Comment COMMENT PT 34.2 H INR 3.3 Sodium 137 Potassium 4.1 Chloride 102 Carbon Dioxide 31.0 Anion Gap 4 L BUN 23 H Creatinine 1.19 Estim Creat Clear Calc 55.25 Est GFR (MDRD) Af Amer 76 Est GFR (MDRD) Non-Af 63 BUN/Creatinine Ratio 19.3 Glucose 82 Calcium 8.6 Troponin I High Sens B-Natriuretic Peptide 01/27/23 01/27/23 14:55 14:55 WBC RBC Hgb Hct MCV MCH MCHC RDW Std Deviation RDW Coeff of Darnell Plt Count MPV Immature Gran % (Auto) Neut % (Auto) Lymph % (Auto) Hemphill % (Auto) Eos % (Auto) Baso % (Auto) Absolute Neuts (auto) Absolute Lymphs (auto) Nucleated RBC % Differential Comment PT INR Sodium Potassium Chloride Carbon Dioxide Anion Gap BUN Creatinine Estim Creat Clear Calc Est GFR (MDRD) Af Amer Est GFR (MDRD) Non-Af BUN/Creatinine Ratio Glucose Calcium Troponin I High Sens 26 B-Natriuretic Peptide 265.6 H Radiography Chest X-Ray - ED: 1 View, Read by ED Physician and - (Chronic changes with interstitial lung disease. Mild CHF. Similar to prior study.) Diagnostic Testing: Clinical Impression(s) from Imaging Studies Chest X-Ray 01/27/23 15:14 IMPRESSION: There has been no change in the appearance of the chest since the prior study. Electronically Signed: Alfonzo Garcia MD at 15:30 EDT Reading Location ID and State: [facility] / [place] , Service support , EKG Initial EKG: Attestation: I personally reviewed and interpreted this EKG as follows: Interpretation: Atrial Fibrillation (A-fib at [address] depression in the lateral precordial leads measuring approximately 1/2 mm most noted in the 4 and V5.) Differential Diagnosis Chest pain/SOB: pulmonary embolism Reason(s) PE less likely: Positive for patient taking oral anticoagulants, ACS ACS: Positive for no evidence of ACS based on cardiac biomarkers and EKG without ischemia and pneumonia Reason(s) pneumonia less likely: Positive for no infiltrate on CXR and no elevation in WBC count Treatment and Re-Evaluation :: CBC and chemistry studies are unremarkable. Troponin is normal at 26. His INR is therapeutic at 3.3. BNP is 265, only a few points lower than his most recent lab draw. Chest x-ray per my interpretation reveals chronic changes with his interstitial lung disease. Mild CHF. Radiology interpretation is reviewed and agrees. Patient on repeat evaluation states he feels well and felt well when he was ambulating. He did not become hypoxic with exertion. Swab for COVID and influenza is also obtained and negative. At this time I will have patient increase his torsemide for the next 4 days and attempt to diurese some extra fluid. Return instructions provided. Discharge Plan Triage Chief Complaint: Shortness of Breath ED Provider: Darlene Malik Dx/Rx/DC Orders Clinical Impression: CHF (congestive heart failure) Instructions: ED Heart Failure, Congestive (CHF) Prescriptions: No Action fluticasone propionate [Flonase Allergy Relief] 50 mcg/actuation spray,suspension 50 mcg INTRANASAL ONCE citalopram 10 mg/5 mL solution 10 mg PO QDAY warfarin 2 mg tablet 2.5 mg PO QDAY carvedilol 3.125 mg tablet 3.125 mg PO BID potassium chloride 10 mEq Capsule, Extended Release 10 meq PO DAILY paroxetine HCl [Paxil] 10 mg Tablet 10 mg PO DAILY atorvastatin [Lipitor] 20 mg Tablet 20 mg PO DAILY torsemide 20 mg Tablet 20 mg PO DAILY sildenafil [Viagra] 25 mg Tablet 25 mg PO DAILY pantoprazole [Protonix] 20 mg Tablet,Delayed Release (Dr/Ec) 40 mg PO DAILY lisinopril 10 mg Tablet 10 mg PO DAILY pirfenidone 801 mg Tablet 808 mg PO TID Rx Instructions: administer with food at the same time(s) each day Primary Care Provider: Alejandra Lee Referrals: Alejandra Lee MD [Primary Care Provider] - 1 Week Activity Restrictions/Additional Instructions: Increase your torsemide to 40 mg daily for the next 4 days. Disposition Disposition: Home, Self Care
[2023-01-27 15:41] VITALS: BP 136/88; PULSE 61; RESP 16; O2SAT 95
[2023-01-27 15:47] LABS: Anion Gap 4 (5-15); BUN 23 mg/dL (7-18); BUN/Creat Ratio 19.3 RATIO (10-20); Calcium,Total 8.6 mg/dL (8.5-10.1); Chloride 102 mmol/L (98-107); Creatinine, Serum 1.19 mg/dL (0.70-1.30); EST Glomerular Filtration Rate 63 mL/min (>60); Est Glom Filt Rate - Afr Amer 76 mL/min (>60); Estimated Creatinine Clearance 55.25 ml/min; Glucose 82 mg/dL (74-106); Potassium 4.1 mmol/L (3.5-5.1); Sodium Level 137 mmol/L (136-145)
[2023-01-27 16:09] LABS: Troponin-I HS 26 pg/mL (3.0-78.0)
[2023-01-27 16:12] LABS: BNP,B-Type NATRIURETIC PEPTIDE 265.6 pg/mL (0-100)
[2023-01-27 16:15] LABS: International Normalized Ratio 3.3; Prothrombin Time (Protime)PT. 34.2 SECONDS (11.7-14.9)
[2023-01-27 16:55] VITALS: O2SAT 96
[2023-01-27 17:49] VITALS: BP 145/81; PULSE 79; RESP 18; O2SAT 94
== END 2023-01-27 18:09 | disposition home or self-care (01) ==
PROVIDERS: Emergency Provider Emergency Medicine; PCP Internal Medicine; Visit Provider Emergency Medicine
DX: I11.0 Hypertensive heart disease with heart failure (principal); I50.9 Heart failure, unspecified; I48.21 Permanent atrial fibrillation; J84.10 Pulmonary fibrosis, unspecified; E78.5 Hyperlipidemia, unspecified; Z95.0 Presence of cardiac pacemaker; Z79.01 Long term (current) use of anticoagulants; Z79.899 Other long term (current) drug therapy
CPT/HCPCS: 71045; 80048; 83880; 84484; 85025; 85610; 87428; 93005; 94760; 99284

== ENCOUNTER 2023-05-19 06:08 | Emergency (ER) | payer MEDICARE, SELFPAY ==
[2022-07-22 08:19] VITALS: BMI 24.4
[2023-05-19 06:09] VITALS: BP 157/76; PULSE 60; RESP 16; TEMP 36.1; O2SAT 93
[2023-05-19 06:12] VITALS: BP 157/76; PULSE 60; RESP 16; TEMP 36.1; O2SAT 93
[2023-05-19 06:27] VITALS: BMI 24.1
--- NOTE | 2023-05-19 07:05 | EX.ED.VIS.EY ---
HPI History of Present Illness Chief Complaint: Eye Problem Informant: patient Onset/Context/Timing Location: Bilateral Eyes Onset: Hours (2 prior to eval) Associated Symptoms Associated Symptoms - Eyes: Burning (L only) History of injury: Yes and Chemical exposure Visual correction: None Narrative Narrative: Patient states he woke up this morning early to get his here to the hospital for a scheduled surgery and in order to wake up he went to get some eyedrops and put them in his eyes. He accidentally used earwax removing drops, placing 2 in each eye before he realized he used the wrong bottle. After this, he found the correct eyedrops and placed those in his eyes as well. After all of this gradually developed burning in the left eye. He states the right one is not bothering him. Denies any vision changes. [facility] Medical History Anxiety and depression Bradycardia Chronic fatigue Congestive heart failure (CHF) Dyspepsia Dyspnea on exertion H/O measles H/O sick sinus syndrome History of pneumonia as a child Hyperlipidemia Hypertension Inguinal hernia (~2011) Interstitial lung disease Mitral and aortic heart valve diseases, unspecified Mitral valve regurgitation Panic attacks Permanent atrial fibrillation Posterior vitreous detachment of both eyes Presence of cardiac pacemaker Shoulder impingement syndrome Home Medications carvedilol 3.125 mg tablet 3.125 mg PO BID 08/27/17 [History Last Taken Unknown] citalopram 10 mg/5 mL oral solution 10 mg PO QDAY 08/27/17 [History Last Taken Unknown] fluticasone propionate 50 mcg/actuation nasal spray,suspension (Flonase Allergy Relief) 50 mcg intranasal ONCE 08/27/17 [History Last Taken Unknown] warfarin 2 mg tablet 2.5 mg PO QDAY 08/27/17 [History Last Taken Unknown] atorvastatin 20 mg tablet (Lipitor) 20 mg PO DAILY 04/22/22 [History Last Taken Unknown] pantoprazole 20 mg tablet,delayed release (Protonix) 40 mg PO DAILY 04/22/22 [History Last Taken Unknown] paroxetine HCl 10 mg tablet (Paxil) 10 mg PO DAILY 04/22/22 [History Last Taken Unknown] potassium chloride 10 mEq capsule,extended release 10 meq PO DAILY 04/22/22 [History Last Taken Unknown] sildenafil 25 mg tablet (Viagra) 25 mg PO DAILY 04/22/22 [History Last Taken Unknown] torsemide 20 mg tablet 20 mg PO DAILY 04/22/22 [History Last Taken Unknown] Allergy/AdvReac Type Severity Reaction Status Date / Time No Known Allergies Allergy Verified 05/19/23 06:14 Family History Other CAD (coronary artery disease) CVA (cerebral vascular accident) Heart disease Surgical History History of back surgery (~2006) History of inguinal hernia repair Mitral valve replaced (~1989) Social History Smoking Status: Never smoker ROS ROS ED Constitutional Constitutional ED: Denies chills or fever(s) Eyes Eyes: Reports as per HPI and eye pain; Denies blurry vision, change in vision or diplopia ENT ENT ED: Denies ear pain, rhinorrhea or sore throat Neurologic Neurologic: Denies headache(s), paresthesias or weakness EXAM Physical Exam Const Vital Signs: 05/19/23 06:09 05/19/23 06:12 Temperature 97.0 F L 97.0 F L Temperature Source Temporal Temporal Pulse Rate 60 60 Respiratory Rate 16 16 Blood Pressure 157/76 H 157/76 H Blood Pressure Mean 103 103 Pulse Ox 93 93 Oxygen Delivery Method Room Air Room Air Positive well nourished and well developed General Appearance ED: well developed and NAD HEENT atraumatic; Negative for tenderness Mouth ED: Yes oral and palatal mucosa normal and Yes lips normal Mouth: oral and palatal mucosa normal and lips normal Eyes PERRL and EOMs intact bilaterally Eyes Narrative: Mild palpebral and bulbar conjunctival injection left eye compared with the right. No discharge. Grossly normal appearing eyes otherwise. No corneal clouding. No hyphema. Neck supple Neuro oriented x3, CN's II-XII intact bilaterally and gait normal Sensorium / Orientation: alert Skin Lesions: no lesions Rashes: no rashes MDM MDM MDM Narrative Medical decision making narrative: I had nursing irrigate his eyes out at the eyewash station which he tolerated well. Burning was resolved afterwards. Unchanged physical exam of the eye otherwise, visual acuity was normal before and after this, patient states his vision is at baseline and he feels better. I checked his pH after irrigation it is 7.0-7.5. He did not bring the bottle with him to check the pH. Given that he had no changes in his vision, I do not suspect a major ascitic injury here. Since he is asymptomatic after irrigating, I do not think ophthalmology or poison control needs to be consulted although they were considered prior to irrigation. Given appropriate follow-up instructions, and reasons to return. He is comfortable with that plan. Discharge Plan Triage Chief Complaint: Eye Problem ED Provider: Fredrick Donald Dx/Rx/DC Orders Clinical Impression: Chemical exposure of eye Instructions: ED Eye Exposure, Chemical Prescriptions: No Action fluticasone propionate [Flonase Allergy Relief] 50 mcg/actuation spray,suspension 50 mcg INTRANASAL ONCE citalopram 10 mg/5 mL solution 10 mg PO QDAY warfarin 2 mg tablet 2.5 mg PO QDAY carvedilol 3.125 mg tablet 3.125 mg PO BID potassium chloride 10 mEq Capsule, Extended Release 10 meq PO DAILY paroxetine HCl [Paxil] 10 mg Tablet 10 mg PO DAILY atorvastatin [Lipitor] 20 mg Tablet 20 mg PO DAILY torsemide 20 mg Tablet 20 mg PO DAILY sildenafil [Viagra] 25 mg Tablet 25 mg PO DAILY pantoprazole [Protonix] 20 mg Tablet,Delayed Release (Dr/Ec) 40 mg PO DAILY Primary Care Provider: Alejandra Lee Referrals: Alejandra Lee MD [Primary Care Provider] - Kaiser Block MD [Med Staff - Active Staff] - As Needed Disposition Disposition: Home, Self Care
== END 2023-05-19 07:30 | disposition home or self-care (01) ==
PROVIDERS: Emergency Provider Emergency Medicine; PCP Internal Medicine; Visit Provider Emergency Medicine
DX: H57.89 Other specified disorders of eye and adnexa (principal); I11.0 Hypertensive heart disease with heart failure; I50.9 Heart failure, unspecified; E78.5 Hyperlipidemia, unspecified; Z77.098 Contact with and (suspected) exposure to other hazardous, chiefly nonmedicinal, chemicals
CPT/HCPCS: 99284

== ENCOUNTER 2023-08-16 12:06 | Emergency (ER) | payer MEDICARE, SELFPAY ==
[2022-07-22 08:19] VITALS: BMI 24.4
[2023-08-16 12:06] VITALS: BP 131/67; PULSE 122; RESP 18; TEMP 36.6; O2SAT 94; BMI 23.8
--- OUTSIDE RECORDS SUMMARY | 2023-08-16 12:38 | XMS RPT_ITS | CCD ---
Author Name Unknown Address [address] [place] [address] Organization [facility] Care Team Providers Care Pipe Line Maintenance Supervisor Name Role Phone Dossi DC, Laura B Unavailable Mariela Lovelace Unavailable Unavailable HASMUKH YOUSIF SHONA J Unavailable Rani vailable HASMUKH YOUSIF, SHONA J Unavailable Rani vailable HASMUKH YOUSIF, SHONA J Unavailable Rani vailable HASMUKH YOUSIF, SHONA J Unavailable Rani vailable HASMUKH YOUSIF, SHONA J Unavailable Rani vailable HASMUKH YOUSIF, SHONA J Unavailable Rnai vailable Dossi DC, Laura B Unavailable Mariela Lovelace Unavailable Unavailable SANDYKIANA Attending Unavailable SANDYKIANA Admitting Unavailable SANDYKIANA Primary Care Unavailable SANDYKIANA Primary Care Unavailable SANDYKIANA Attending Unavailable SANDYKIANA Admitting Unavailable SANDYKIANA Attending Unavailable SANDYKIANA Admitting Unavailable SANDYKIANA Primary Care Unavailable SOLIS ARSLAN C Admitting Unavailable SOLIS, ARSLAN C Primary Care Unavailable SOLIS ARSLAN C Attending Unavailable SANDYKIANA Attending Unavailable SANDYKIANA Admitting Unavailable SANDYKIANA Primary Care Unavailable Jesus SINGH, Macey Primary Care Provider No, Referral Unavailable Unavailable 13, Pharmacist Unavailable Makayla SALMON, Joel M Unavailable Unavailpadma Contreras MD, Jose Ramon Miller Unavailable Mercy SINGH, Franklin Jeffrey Unavailable Ganta MD, Macey Primary Care Provider 13, Pharmacist Unavailable Makayla RN, Joel M Unavailable Unavailpadma Contreras MD, Khaled Meloud Unavailable Mercy SINGH, Franklin Wojciech Unavailable Jesus SINGH, Macey Primary Care Provider No, Referral Unavailable Unavailable 13, Pharmacist Unavailable Joel RN, Makayla M Unavailable Unavailpadma Contreras MD, Khaled Meloud Unavailable Mercy SINGH, Franklin A Unavailable Adama SINGH, Sameep Unavailable Natalia Gaffney MD M Unavailable No, Referral Unavailable Unavailable GANTA, MACEY Primary Care Unavailable GANTA, MACEY Primary Care Unavailable FRANKLIN JARAMILLO Referring Unavailable GANTA, MACEY Primary Care Unavailable FRANKLIN JARAMILLO Attending Unavailable GANTA, MACEY Referring Unavailable GANTA, MACEY Primary Care Unavailable Tamra Mock RN Unavailable Jesus SINGH, [facility] Primary Care Provider Diane SINGH, Jose Ramon Miller Unavailable Mercy SINGH, Franklin Wojciech Unavailable Adama SINGH, Sameep Unavailable Gulshan SINGH, Natalia M Unavailable Tamra Mock RN Unavailable GANTA, MACEY Primary Care Unavailable GANTA, MACEY Attending Unavailable GANTA, MACEY Primary Care Unavailable ADAMA, SAMEEP Referring Unavailable ADAMA, SAMEEP Attending Unavailable GANTA, MACEY Primary Care Unavailable SLEIK, KHALED MELOUD Referring Unavailable SLEIK, KHALED MELOUD Attending Unavailable GANTA, MACEY Primary Care Unavailable OLDER, NEETA Attending Unavailable SLEIK, KHALED MELOUD Referring Unavailable OLDER, NEETA Attending Unavailable GANTA, MACEY Primary Care Unavailable GANTA, MACEY Primary Care Unavailable OLDER, NEETA Referring Unavailable GANTA, MACEY Primary Care Unavailable SLEIK, KHALED MELOUD Referring Unavailable GANTA, MACEY Attending Unavailable GANTA, MACEY Primary Care Unavailable GANTA, MACEY Primary Care Unavailable GANTA, MACEY Primary Care Unavailable LE CLARK Attending Unavailable GANTA, MACEY Primary Care Unavailable OLDER, NEETA Attending Unavailable GANTA, MACEY Primary Care Unavailable DENBOW, MERCED Attending Unavailable GANTA, MACEY Primary Care Unavailable DENBOW, MERCED Referring Unavailable GANTA, MACEY Primary Care Unavailable DENBOW, MERCED Referring Unavailable GANTA, MACEY Primary Care Unavailable GANTA, MACEY Primary Care Unavailable OLDER, NEETA Referring Unavailable GANTA, MACEY Primary Care Unavailable PROCTOR, JORGE L J Referring Unavailable GANTA, MACEY Primary Care Unavailable JOHNSON, ROBERT Attending Unavailable PROCTOR, JORGE L J Referring Unavailable GANTA, MACEY Primary Care Unavailable JOHNSON, ROBERT Referring Unavailable GANTA, MACEY Primary Care Unavailable JOHNSON, ROBERT Referring Unavailable GANTA, MACEY Primary Care Unavailable DENBOW, MERCED Attending Unavailable PARAMBIL, GEOVANNY Referring Unavailable GANTA, MACEY Primary Care Unavailable GANTA, MACEY Primary Care Unavailable DENBOW, MERCED Referring Unavailable GANTA, MACEY Primary Care Unavailable ADAMA, SAMEEP Referring Unavailable ADAMA, SAMEEP Attending Unavailable GANTA, MACEY Primary Care Unavailable ADAMA, SAMEEP Referring Unavailable GANTA, MACEY Primary Care Unavailable ADAMA, SAMEEP Referring Unavailable PARAMBIL, GEOVANNY Referring Unavailable GANTA, MACEY Primary Care Unavailable PARAMBIL, GEOVANNY Referring Unavailable PARAMBIL, GEOVANNY Attending Unavailable GANTA, MACEY Primary Care Unavailable GANTA, MACEY Primary Care Unavailable OLDER, NEETA Attending Unavailable GANTA, MACEY Primary Care Unavailable OLDER, NEETA Referring Unavailable ADAMA, SAMEEP Referring Unavailable GANTA, MACEY Primary Care Unavailable GANTA, MACEY Primary Care Unavailable OLDER, NEETA Referring Unavailable Medications Current Medications Medication Drug Class(es) Dates Sig (Normalized) Sig (Original) amoxicillin 500 mg oral capsule (20 sources) Penicillin-class Antibacterial Start: 03-18-2022 End: 03-18-2022 take 4 capsules by mouth once amoxicillin (POLYMOX, AMOXIL) 500 mg capsule Take 4 capsules by mouth one time only for 1 dose. TAKE 4 CAPSULES 1 HR BEFORE DENTAL PROCEDURE 4 capsule 0 03/18/2022 03/18/2022 Active Completed/Discontinued Medications Medication Drug Class(es) Dates Sig (Normalized) Sig (Original) acetaminophen 300 mg / codeine phosphate 30 mg oral tablet (20 sources) Opioid Agonist Start: 08-19-2011 End: 08-23-2011 take 1 tablet by mouth every six hours as needed for pain TYLENOL WITH CODEINE #3 TABS one tablet by mouth every 6hr as needed pain ACETAMINOPHEN-CODE INE TABS [id number] Sandrine Kc MD Problems Active Problems Problem Classification Problem Date Documented Da te Episodic/Chronic Abdominal pain (1 source) Lower abdominal pain, unspecified; Translations: [Lower abdominal pain] Onset: 06-12-2023 Episodic Allergic reactions (20 sources) Atopic dermatitis; Translations: [Allergic contact dermatitis, unspecified cause] Onset: 01-23-2012 Resolved: 04-03-2012 01-23-2012 Chronic Anxiety disorders (20 sources) Generalized anxiety disorder; Translations: [Panic attack] Onset: 12-26-2014 08-28-2009 Chronic Cardiac dysrhythmias (20 sources) Atrial fibrillation; Translations: [Ventricular premature depolarization] Onset: 11-06-2016 08-28-2009 Chronic Cardiac dysrhythmias (20 sources) Bradycardia; Translations: [Bradycardia, unspecified] Onset: 06-14-2020 06-14-2020 Episodic Coagulation and hemorrhagic disorders (20 sources) Platelet count below reference range; Translations: [Thrombocytopenia, unspecified] Onset: 04-05-2019 04-05-2019 Chronic Conditions associated with dizziness or vertigo (1 source) Dizziness; Translations: [Dizziness and giddiness] Episodic Conduction disorders (20 sources) Cardiac pacemaker in situ; Translations: [Presence of cardiac pacemaker] Onset: 06-14-2020 06-14-2020 Chronic Congestive heart failure; nonhypertensive (20 sources) Congestive heart failure; Translations: [Chronic combined systolic and diastolic heart failure] Onset: 11-03-2009 11-03-2009 Chronic Disorders of lipid metabolism (20 sources) Hyperlipidemia; Translations: [Hyperlipidemia, unspecified] Onset: 05-03-2015 05-03-2015 Chronic E Codes: Fall (2 sources) Fall; Translations: [Unspecified fall, initial encounter] Episodic Essential hypertension (20 sources) Hypertensive episode; Translations: [Essential hypertension] Onset: 10-04-2011 10-04-2011 Chronic Heart valve disorders (20 sources) Heart valve replaced by other means; Translations: [Mitral valve disorder] Onset: 08-11-1989 12-13-2010 Chronic Immunizations and screening for infectious disease (6 sources) Encounter for immunization; Translations: [Encounter for observation for suspected exposure to other biological agents ruled out] Onset: 07-17-2020 Episodic Mood disorders (20 sources) Chronic depression; Translations: [Major depressive disorder, single episode, unspecified] Onset: 08-23-2011 08-23-2011 Chronic Open wounds of head; neck; and trunk (1 source) Laceration of head without foreign body; Translations: [Laceration without foreign body of other part of head, subsequent encounter] Episodic Other aftercare (20 sources) Long-term current use of anticoagulant; Translations: [long-term (current) use of anticoagulants] Onset: 08-11-1989 06-14-2020 Episodic Other aftercare (1 source) Removal of sutures done; Translations: [Encounter for removal of sutures] Episodic Other circulatory disease (20 sources) History of sick sinus syndrome; Translations: [Personal history of other diseases of the circulatory system] 06-14-2020 Episodic Other ear and sense organ disorders (1 source) Chronic eczema of external auditory canal; Translations: [Other otitis externa, bilateral] 05-20-2023 Chronic Other ear and sense organ disorders (2 sources) Impacted cerumen in left ear; Translations: [Impacted cerumen, left ear] Episodic Other endocrine disorders (20 sources) Male hypogonadism; Translations: [Testicular hypofunction] Onset: 01-26-2010 01-26-2010 Chronic Other gastrointestinal disorders (4 sources) Dysphagia; Translations: [Dysphagia, unspecified] Episodic Other injuries and conditions due to external causes (1 source) Injury of head; Translations: [Unspecified injury of head, initial encounter] Episodic Other liver diseases (8 sources) Alkaline phosphatase raised; Translations: [Abnormal levels of other serum enzymes] Episodic Other liver diseases (2 sources) Gamma-glutamyl transferase raised; Translations: [Abnormal levels of other serum enzymes] Episodic Other lower respiratory disease (20 sources) Fibrosis of lung; Translations: [Pulmonary fibrosis, unspecified] Onset: 08-21-2022 Chronic Other lower respiratory disease (5 sources) Idiopathic pulmonary fibrosis; Translations: [Idiopathic pulmonary fibrosis] Chronic Other lower respiratory disease (20 sources) Interstitial lung disease; Translations: [Interstitial pulmonary disease, unspecified] Onset: 01-17-2022 Chronic Other lower respiratory disease (1 source) Pulmonary fibrosis, unspecified; Translations: [Pulmonary fibrosis (HCC)] Onset: 08-21-2022 Chronic Other lower respiratory disease (3 sources) Dyspnea; Translations: [Shortness of breath] Episodic Other lower respiratory disease (1 source) Restrictive lung disease; Translations: [Other disorders of lung] Episodic Other lower respiratory disease (1 source) Cough; Translations: [Acute cough] Episodic Other lower respiratory disease (1 source) Wheezing; Translations: [Wheezing] Episodic Other lower respiratory disease (1 source) Multiple lung cysts; Translations: [Other disorders of lung] Episodic Other lower respiratory disease (1 source) Hypoxemia; Translations: [Hypoxemia] Episodic Other nutritional; endocrine; and metabolic disorders (1 source) Increased thirst; Translations: [Polydipsia] Episodic Other skin disorders (5 sources) Eruption; Translations: [Rash and other nonspecific skin eruption] Episodic Other skin disorders (1 source) Mass of lower limb; Translations: [Localized swelling, mass and lump, left lower limb] Episodic Other upper respiratory disease (20 sources) Allergic rhinitis; Translations: [Allergic rhinitis, unspecified] Onset: 08-23-2011 08-23-2011 Chronic Other upper respiratory infections (20 sources) Upper respiratory infection; Translations: [Acute sinusitis] Onset: 05-07-2010 Resolved: 07-27-2010 07-27-2010 Episodic Jackeline-; endo-; and myocarditis; cardiomyopathy (except that caused by tuberculosis or sexually transmitted disease) (20 sources) Cardiomyopathy; Translations: [Other cardiomyopathies] Onset: 05-29-2020 05-29-2020 Chronic Residual codes; unclassified (1 source) Bilateral lower limb edema; Translations: [Localized edema] Episodic Residual codes; unclassified (1 source) Chill; Translations: [Chills (without fever)] Episodic Residual codes; unclassified (1 source) Generalized aches and pains; Translations: [Pain, unspecified] Episodic Residual codes; unclassified (1 source) Other amnesia; Translations: [Memory change] Onset: 08-14-2023 Episodic Unclassified (20 sources) Encounter for screening for malignant neoplasm of prostate; Translations: [Pulmonary function studies abnormal] Onset: 11-03-2009 11-03-2009 Episodic Unclassified (10 sources) General examination of patient ; Translations: [Encounter for other general examination] Onset: 08-23-2011 08-23-2011 Unclassified (10 sources) Replacement of mitral valve ; Translations: [Other specified postprocedural states] Onset: 08-11-1989 08-28-2009 Unclassified (1 source) Other specified postprocedural states; Translations: [Other specified postprocedural states] Onset: 09-23-2017 Unclassified (1 source) Unknown / UNK(Unknown) Onset: 02-24-2017 Unclassified (11 sources) Screening - health check; Translations: [Encounter for general adult medical examination without abnormal findings] Onset: 05-07-2010 05-07-2010 Unclassified (11 sources) Warfarin therapy started; Translations: [long-term (current) use of anticoagulants] Onset: 08-11-1989 08-28-2009 Unclassified (1 source) APPOINTMENT CANCELLED Unclassified (2 sources) Permanent atrial fibrillation; Translations: [Permanent atrial fibrillation (HCC)] Onset: 06-14-2020 Past or Other Problems Problem Classification Problem Date Documented Da te Episodic/Chronic Abdominal hernia (20 sources) Right inguinal hernia ; Translations: [Unilateral inguinal hernia, without obstruction or gangrene, not specified as recurrent] Onset: 05-01-2012 05-01-2012 Episodic Deficiency and other anemia (1 source) Anemia, unspecified; Translations: [Anemia, unspecified type] Onset: 01-31-2023 Episodic Diabetes mellitus without complication (2 sources) Abnormal glucose level; Translations: [Other abnormal glucose] Onset: 01-13-2023 Episodic Genitourinary symptoms and ill-defined conditions (5 sources) Isaiah hematuria; Translations: [Gross hematuria] Onset: 04-28-2023 04-29-2023 Episodic Malaise and fatigue (4 sources) Fatigue; Translations: [Other fatigue] Onset: 01-13-2023 Episodic Medical examination/evaluation (10 sources) Encounter for general adult medical examination without abnormal findings; Translations: [Encounter for general adult medical examination without abnormal findings] Onset: 05-07-2010 05-07-2010 Episodic Neoplasms of unspecified nature or uncertain behavior (20 sources) Neoplasm of uncertain behavior of skin; Translations: [Neoplasm of uncertain behavior of skin] Onset: 04-03-2012 04-03-2012 Episodic Nonspecific chest pain (20 sources) Chest pain, unspecified; Translations: [Atypical chest pain] Onset: 06-02-2009 12-13-2010 Episodic Other aftercare (11 sources) 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; Translations: [long-term (current) use of anticoagulants] Onset: 08-11-1989 08-28-2009 Episodic Other bone disease and musculoskeletal deformities (20 sources) Pelvic somatic dysfunction; Translations: [Segmental and somatic dysfunction] Onset: 01-09-2017 01-13-2017 Episodic Other bone disease and musculoskeletal deformities (20 sources) Segmental and somatic dysfunction; Translations: [Segmental and somatic dysfunction of lumbar region] Onset: 01-09-2017 01-09-2017 Episodic Other circulatory disease (1 source) Personal history of other diseases of the circulatory system; Translations: [Personal history of other diseases of the circulatory system] Onset: 09-23-2017 Episodic Other disorders of stomach and duodenum (20 sources) Indigestion; Translations: [Functional dyspepsia] Onset: 04-03-2012 04-03-2012 Episodic Other ear and sense organ disorders (20 sources) Impacted cerumen; Translations: [Otitis externa] Onset: 08-16-2011 Resolved: 12-27-2011 08-16-2011 Episodic Other ear and sense organ disorders (20 sources) Otitis externa; Translations: [Unspecified otitis externa, unspecified ear] Onset: 08-19-2011 Resolved: 12-27-2011 12-27-2011 Episodic Other liver diseases (2 sources) Abnormal levels of other serum enzymes; Translations: [Elevated alkaline phosphatase level] Onset: 02-05-2023 Episodic Other liver diseases (1 source) Unspecified jaundice; Translations: [Elevated bilirubin] Onset: 01-31-2023 Episodic Other male genital disorders (20 sources) Pain in testicle; Translations: [Other specified disorders of male genital organs] Onset: 05-07-2010 05-07-2010 Episodic Other non-traumatic joint disorders (20 sources) Pain in unspecified shoulder; Translations: [Pain in unspecified shoulder] Onset: 11-03-2009 Resolved: 07-27-2010 07-27-2010 Episodic Other nutritional; endocrine; and metabolic disorders (1 source) Polydipsia; Translations: [Increased thirst] Onset: 01-13-2023 Episodic Otitis media and related conditions (20 sources) Otitis media; Translations: [Otitis media, unspecified, left ear] Onset: 08-16-2011 Resolved: 10-04-2011 08-16-2011 Episodic Residual codes; unclassified (20 sources) Other specified personal risk factors, not elsewhere classified; Translations: [Other specified personal history presenting hazards to health] Onset: 07-23-2021 07-23-2021 Episodic Spondylosis; intervertebral disc disorders; other back problems (20 sources) Low back pain; Translations: [Low back pain] Onset: 12-27-2011 12-27-2011 Episodic Superficial injury; contusion (20 sources) Contusion of lower limb; Translations: [Contusion of unspecified lower leg] Onset: 11-18-2011 11-18-2011 Episodic Viral infection (20 sources) Verruca vulgaris; Translations: [Viral wart, unspecified] 05-01-2012 Episodic Results Test Name Value Interpretation Reference Range Facil ity Vital Signs Date Time Vital Sign Value Performing Clinician Facility 05-20-2023 14:37-0400 Diastolic blood pressure 56 mm[Hg] Merced Denbow PA-C Work Phone: [facility] 05-20-2023 14:37-0400 Systolic blood pressure 122 mm[Hg] Merced Denbow PA-C Work Phone: [facility] 05-20-2023 13:39-0400 Body height 182.9 cm Merced Denbow PA-C Work Phone: [facility] 05-20-2023 13:39-0400 Body temperature 98.2 [degF] Merced Denbow PA-C Work Phone: [facility] 05-20-2023 13:39-0400 Body weight 80.29 kg Merced Denbow PA-C Work Phone: [facility] 05-20-2023 13:39-0400 Heart rate 60 /min Merced Denbow PA-C Work Phone: [facility] 05-20-2023 13:39-0400 Respiratory rate 12 /min Merced Denbow PA-C Work Phone: [facility] 05-20-2023 13:39-0400 SaO2% (BldA) [Mass fraction] 93 % Merced Denbow PA-C Work Phone: [facility] 04-29-2023 11:48-0400 Body height 182.9 cm Robert Johnson PA-C Work Phone: [facility] 04-29-2023 11:48-0400 Body temperature 97.81 [degF] Robert Johnson PA-C Work Phone: [facility] 04-29-2023 11:48-0400 Body weight 80.38 kg Robert Johnson PA-C Work Phone: [facility] 04-29-2023 11:48-0400 Diastolic blood pressure 78 mm[Hg] Robert Johnson PA-C Work Phone: [facility] 04-29-2023 11:48-0400 Heart rate 72 /min Robert Johnson PA-C Work Phone: [facility] 04-29-2023 11:48-0400 Respiratory rate 14 /min Robert Johnson PA-C Work Phone: [facility] 04-29-2023 11:48-0400 SaO2% (BldA) [Mass fraction] 94 % Robert Johnson PA-C Work Phone: [facility] 04-29-2023 11:48-0400 Systolic blood pressure 122 mm[Hg] Robert Johnson PA-C Work Phone: [facility] 03-12-2023 09:42-0400 Body height 177.8 cm Merced Denbow PA-C Work Phone: [facility] 03-12-2023 09:42-0400 Body temperature 98.2 [degF] Merced Denbow PA-C Work Phone: [facility] 03-12-2023 09:42-0400 Body weight 80.74 kg Merced Denbow PA-C Work Phone: [facility] 08-02-2023 09:42-0400 Diastolic blood pressure 58 mm[Hg] Merced Denbow PA-C Work Phone: [facility] 03-12-2023 09:42-0400 Heart rate 48 /min Merced Denbow PA-C Work Phone: [facility] 03-12-2023 09:42-0400 Respiratory rate 12 /min Merced Denbow PA-C Work Phone: [facility] 03-12-2023 09:42-0400 SaO2% (BldA) [Mass fraction] 98 % Merced Denbow PA-C Work Phone: [facility] 03-12-2023 09:42-0400 Systolic blood pressure 110 mm[Hg] Merced Denbow PA-C Work Phone: [facility] 03-06-2023 13:14-0400 Body height 179.6 cm Pulm Wstr Work Phone: [facility] 03-06-2023 13:14-0400 Body weight 78.93 kg Pulm Wstr Work Phone: [facility] 03-06-2023 13:14-0400 Heart rate 56 /min Pulm Wstr Work Phone: [facility] 03-06-2023 13:14-0400 Respiratory rate 14 /min Pulm Wstr Work Phone: [facility] 03-06-2023 13:14-0400 SaO2% (BldA) [Mass fraction] 96 % Pulm Wstr Work Phone: [facility] 01-13-2023 10:14-0400 Body temperature 97 [degF] Neeta Older VICE PRESIDENT SALES AND MARKETING.[employer] Work Phone: [facility] 01-13-2023 10:14-0400 Body weight 82.56 kg Neeta Older VICE PRESIDENT SALES AND MARKETING[employer] Work Phone: [facility] 01-13-2023 10:14-0400 Diastolic blood pressure 68 mm[Hg] Neeta Older VICE PRESIDENT SALES AND MARKETING[employer] Work Phone: [facility] 01-13-2023 10:14-0400 Heart rate 55 /min Neeta Older VICE PRESIDENT SALES AND MARKETING[employer] Work Phone: [facility] 01-13-2023 10:14-0400 Respiratory rate 16 /min Neeta Older VICE PRESIDENT SALES AND MARKETING.[employer] Work Phone: [facility] 01-13-2023 10:14-0400 SaO2% (BldA) [Mass fraction] 98 % Neeta Older VICE PRESIDENT SALES AND MARKETING.[employer] Work Phone: [facility] 01-13-2023 10:14-0400 Systolic blood pressure 112 mm[Hg] Neeta Older VICE PRESIDENT SALES AND MARKETING[employer] Work Phone: [facility] 11-22-2022 15:26-0400 Body height 177.8 cm Macey Lee MD Work Phone: [facility] 11-22-2022 15:26-0400 Body temperature 99 [degF] Macey Lee MD Work Phone: [facility] 11-22-2022 15:26-0400 Body weight 81.65 kg Macey Lee MD Work Phone: [facility] 11-22-2022 15:26-0400 Diastolic blood pressure 56 mm[Hg] Macey Lee MD Work Phone: [facility] 11-22-2022 15:26-0400 Heart rate 58 /min Macey Lee MD Work Phone: [facility] 11-22-2022 15:26-0400 Respiratory rate 12 /min Macey Lee MD Work Phone: [facility] 11-22-2022 15:26-0400 SaO2% (BldA) [Mass fraction] 100 % Macey Lee MD Work Phone: [facility] 11-22-2022 15:26-0400 Systolic blood pressure 122 mm[Hg] Macey Lee MD Work Phone: [facility] 10-21-2022 09:48-0400 Body height 179.9 cm Tereso Garcia RRT Work Phone: [facility] 10-21-2022 09:48-0400 Body temperature 97.11 [degF] Tereso Garcia SALES ASSISTANT INSTITUTIONAL SALES Work Phone: [facility] 10-21-2022 09:48-0400 Body weight 80.4 kg Tereso Garcia SALES ASSISTANT INSTITUTIONAL SALES Work Phone: [facility] 10-21-2022 09:48-0400 Diastolic blood pressure 62 mm[Hg] Tereso Garcia SALES ASSISTANT INSTITUTIONAL SALES Work Phone: [facility] 10-21-2022 09:48-0400 Heart rate 52 /min Tereso Garcia SALES ASSISTANT INSTITUTIONAL SALES Work Phone: [facility] 10-21-2022 09:48-0400 Respiratory rate 16 /min Tereso Garcia SALES ASSISTANT INSTITUTIONAL SALES Work Phone: [facility] 10-21-2022 09:48-0400 SaO2% (BldA) [Mass fraction] 97 % Tereso Garcia SALES ASSISTANT INSTITUTIONAL SALES Work Phone: [facility] 10-21-2022 09:48-0400 Systolic blood pressure 102 mm[Hg] Tereso Garcia SALES ASSISTANT INSTITUTIONAL SALES Work Phone: [facility] 10-14-2022 11:30-0500 Body weight 79.83 kg Neeta Older VICE PRESIDENT SALES AND MARKETING.[employer] Work Phone: [facility] 10-14-2022 11:30-0500 Diastolic blood pressure 66 mm[Hg] Neeta Older VICE PRESIDENT SALES AND MARKETING[employer] Work Phone: [facility] 10-14-2022 11:30-0500 Heart rate 56 /min Neeta Older VICE PRESIDENT SALES AND MARKETING.[employer] Work Phone: [facility] 10-14-2022 11:30-0500 Respiratory rate 16 /min Neeta Older VICE PRESIDENT SALES AND MARKETING.[employer] Work Phone: [facility] 10-14-2022 11:30-0500 Systolic blood pressure 106 mm[Hg] Neeta Older VICE PRESIDENT SALES AND MARKETING.[employer] Work Phone: [facility] 08-26-2022 13:41-0500 Body height 182.9 cm Nancy Sales MD Work Phone: [facility] 08-26-2022 13:41-0500 Body temperature 97.39 [degF] Nancy Sales MD Work Phone: [facility] 08-26-2022 13:41-0500 Body weight 78.93 kg Nancy Sales MD Work Phone: [facility] 08-26-2022 13:41-0500 Diastolic blood pressure 55 mm[Hg] Nancy Sales MD Work Phone: [facility] 08-26-2022 13:41-0500 Heart rate 45 /min Nancy Sales MD Work Phone: [facility] 08-26-2022 13:41-0500 Respiratory rate 18 /min Nancy Sales MD Work Phone: [facility] 08-26-2022 13:41-0500 SaO2% (BldA) [Mass fraction] 97 % Nancy Sales MD Work Phone: [facility] 08-26-2022 13:41-0500 Systolic blood pressure 108 mm[Hg] Nancy Sales MD Work Phone: [facility] 08-22-2022 11:47-0500 Body weight 78.93 kg Macey Lee MD Work Phone: [facility] 08-22-2022 11:47-0500 Diastolic blood pressure 58 mm[Hg] Macey Lee MD Work Phone: [facility] 08-22-2022 11:47-0500 Heart rate 50 /min Macey Lee MD Work Phone: [facility] 08-22-2022 11:47-0500 Respiratory rate 16 /min Macey Lee MD Work Phone: [facility] 08-22-2022 11:47-0500 SaO2% (BldA) [Mass fraction] 97 % Macey Lee MD Work Phone: [facility] 08-22-2022 11:47-0500 Systolic blood pressure 110 mm[Hg] Macey Lee MD Work Phone: [facility] 08-21-2022 13:45-0500 Body height 182.9 cm Franklin Jaramillo MD Work Phone: [facility] 08-21-2022 13:45-0500 Body weight 79.38 kg Franklin Jaramillo MD Work Phone: [facility] 08-21-2022 13:45-0500 Diastolic blood pressure 66 mm[Hg] Franklin Jaramillo MD Work Phone: [facility] 08-21-2022 13:45-0500 Heart rate 58 /min Franklin Jaramillo MD Work Phone: [facility] 08-21-2022 13:45-0500 SaO2% (BldA) [Mass fraction] 94 % Franklin Jaramillo MD Work Phone: [facility] 08-21-2022 13:45-0500 Systolic blood pressure 115 mm[Hg] Franklin Jaramillo MD Work Phone: [facility] 05-27-2022 11:09-0400 Body height 182.9 cm Neeta Older VICE PRESIDENT SALES AND MARKETING.[employer] Work Phone: [facility] 05-27-2022 11:09-0400 Body temperature 96.8 [degF] Neeta Older VICE PRESIDENT SALES AND MARKETING.[employer] Work Phone: [facility] 05-27-2022 11:09-0400 Body weight 80.02 kg Neeta Older VICE PRESIDENT SALES AND MARKETING.[employer] Work Phone: [facility] 05-27-2022 11:09-0400 Diastolic blood pressure 56 mm[Hg] Neeta Older VICE PRESIDENT SALES AND MARKETING.[employer] Work Phone: [facility] 05-27-2022 11:09-0400 Heart rate 53 /min Neeta Older VICE PRESIDENT SALES AND MARKETING.[employer] Work Phone: [facility] 05-27-2022 11:09-0400 SaO2% (BldA) [Mass fraction] 95 % Neeta Older VICE PRESIDENT SALES AND MARKETING.[employer] Work Phone: [facility] 05-27-2022 11:09-0400 Systolic blood pressure 110 mm[Hg] Neeta Older VICE PRESIDENT SALES AND MARKETING.[employer] Work Phone: [facility] 05-14-2022 15:26-0400 Body temperature 97.39 [degF] Natalia Gaffney MD Work Phone: [facility] 05-14-2022 15:26-0400 Body weight 81.1 kg Natalia Gaffney MD Work Phone: [facility] 05-14-2022 15:26-0400 Diastolic blood pressure 68 mm[Hg] Natalia Gaffney MD Work Phone: [facility] 05-14-2022 15:26-0400 Heart rate 52 /min Natalia Gaffney MD Work Phone: [facility] 05-14-2022 15:26-0400 Systolic blood pressure 135 mm[Hg] Natalia Gaffney MD Work Phone: [facility] 05-02-2022 09:50-0400 Body temperature 97.39 [degF] Macey Lee MD Work Phone: [facility] 05-02-2022 09:50-0400 Body weight 80.74 kg Macey Lee MD Work Phone: [facility] 05-02-2022 09:50-0400 Diastolic blood pressure 70 mm[Hg] Macey Lee MD Work Phone: [facility] 05-02-2022 09:50-0400 Heart rate 58 /min Macey Lee MD Work Phone: [facility] 05-02-2022 09:50-0400 Respiratory rate 16 /min Macey Lee MD Work Phone: [facility] 05-02-2022 09:50-0400 SaO2% (BldA) [Mass fraction] 96 % Macey Lee MD Work Phone: [facility] 05-02-2022 09:50-0400 Systolic blood pressure 100 mm[Hg] Macey Lee MD Work Phone: [facility] 04-02-2022 14:15-0400 Body height 182.9 cm Abigail Garvin MD Work Phone: [facility] 04-02-2022 14:15-0400 Body temperature 96.8 [degF] Abigail Garvin MD Work Phone: [facility] 04-02-2022 14:15-0400 Body weight 80.83 kg Abigail Garvin MD Work Phone: [facility] 04-02-2022 14:15-0400 Diastolic blood pressure 55 mm[Hg] Abigail Garvin MD Work Phone: [facility] 04-02-2022 14:15-0400 Heart rate 49 /min Abigail Garvin MD Work Phone: [facility] 04-02-2022 14:15-0400 SaO2% (BldA) [Mass fraction] 97 % Abigail Garvin MD Work Phone: [facility] 04-02-2022 14:15-0400 Systolic blood pressure 113 mm[Hg] Abigail Garvin MD Work Phone: [facility] 04-01-2022 13:48-0400 Body weight 80 kg Jose Ramon Contreras MD Work Phone: [facility] 04-01-2022 13:48-0400 Diastolic blood pressure 76 mm[Hg] Jose Ramon Contreras MD Work Phone: [facility] 04-01-2022 13:48-0400 Heart rate 62 /min Jose Ramon Contreras MD Work Phone: [facility] 04-01-2022 13:48-0400 Respiratory rate 18 /min Jose Ramon Contreras MD Work Phone: [facility] 04-01-2022 13:48-0400 Systolic blood pressure 128 mm[Hg] Jose Ramon Contreras MD Work Phone: [facility] 03-22-2022 13:29-0400 Body weight 80.74 kg Neeta Older VICE PRESIDENT SALES AND MARKETING.[employer] Work Phone: [facility] 03-22-2022 13:29-0400 Diastolic blood pressure 62 mm[Hg] Neeta Older VICE PRESIDENT SALES AND MARKETING.[employer] Work Phone: [facility] 03-22-2022 13:29-0400 Heart rate 56 /min Neeta Older VICE PRESIDENT SALES AND MARKETING.[employer] Work Phone: [facility] 03-22-2022 13:29-0400 Respiratory rate 16 /min Neeta Older VICE PRESIDENT SALES AND MARKETING.[employer] Work Phone: [facility] 03-22-2022 13:29-0400 Systolic blood pressure 122 mm[Hg] Neeta Older VICE PRESIDENT SALES AND MARKETING.[employer] Work Phone: [facility] 03-21-2022 13:56-0400 Body temperature 97.3 [degF] Nancy Sales MD Work Phone: [facility] 03-21-2022 13:56-0400 Body weight 80.6 kg Pulm 10 Other Phone: [facility] 03-21-2022 13:56-0400 Diastolic blood pressure 60 mm[Hg] Nanyc Sales MD Work Phone: [facility] 03-21-2022 13:56-0400 Heart rate 53 /min Nancy Sales MD Work Phone: [facility] 03-21-2022 13:56-0400 Respiratory rate 12 /min Nancy Sales MD Work Phone: [facility] 03-21-2022 13:56-0400 SaO2% (BldA) [Mass fraction] 99 % Nancy Sales MD Work Phone: [facility] 03-21-2022 13:56-0400 Systolic blood pressure 109 mm[Hg] Nancy Sales MD Work Phone: [facility] 03-21-2022 12:00-0400 Body height 179.8 cm Pulm 10 Other Phone: [facility] 03-06-2022 12:38-0400 Body weight 80.29 kg Pham Older VICE PRESIDENT SALES AND MARKETING.[employer] Work Phone: [facility] 03-06-2022 12:38-0400 Diastolic blood pressure 68 mm[Hg] Pham Older VICE PRESIDENT SALES AND MARKETING.[employer]TER Work Phone: [facility] 03-06-2022 12:38-0400 Heart rate 68 /min Pham Older VICE PRESIDENT SALES AND MARKETING.TI[employer] Work Phone: [facility] 03-06-2022 12:38-0400 Respiratory rate 12 /min Pham Older VICE PRESIDENT SALES AND MARKETING.[employer]TER Work Phone: [facility] 03-06-2022 12:38-0400 Systolic blood pressure 112 mm[Hg] Pham Older VICE PRESIDENT SALES AND MARKETING.TI[employer]TER Work Phone: [facility] 03-05-2022 15:46-0400 Body height 182.9 cm Natalia Gaffney MD Work Phone: [facility] 03-05-2022 15:46-0400 Body temperature 96.91 [degF] Natalia Gaffney MD Work Phone: [facility] 03-05-2022 15:46-0400 Body weight 80.74 kg Natalia Gaffney MD Work Phone: [facility] 03-05-2022 15:46-0400 Diastolic blood pressure 75 mm[Hg] Natalia Gaffney MD Work Phone: [facility] 03-05-2022 15:46-0400 Heart rate 51 /min Natalia Gaffney MD Work Phone: [facility] 03-05-2022 15:46-0400 Systolic blood pressure 123 mm[Hg] Natalia Gaffney MD Work Phone: [facility] 01-31-2022 14:25-0400 Diastolic blood pressure 76 mm[Hg] Le Clark VICE PRESIDENT SALES AND MARKETING.EXPLOITATION ANALYST Work Phone: [facility] 01-31-2022 14:25-0400 Systolic blood pressure 130 mm[Hg] Le Clark VICE PRESIDENT SALES AND MARKETING.EXPLOITATION ANALYST Work Phone: [facility] 01-31-2022 14:22-0400 Body weight 83.01 kg Le Clark VICE PRESIDENT SALES AND MARKETING.EXPLOITATION ANALYST Work Phone: [facility] 01-31-2022 14:22-0400 Heart rate 60 /min Le Clark VICE PRESIDENT SALES AND MARKETING.EXPLOITATION ANALYST Work Phone: [facility] 01-31-2022 14:22-0400 Respiratory rate 16 /min Le Clark VICE PRESIDENT SALES AND MARKETING.EXPLOITATION ANALYST Work Phone: [facility] 01-31-2022 14:22-0400 SaO2% (BldA) [Mass fraction] 98 % Le Clark VICE PRESIDENT SALES AND MARKETING.EXPLOITATION ANALYST Work Phone: [facility] 12-17-2021 14:37-0400 Body height 182.9 cm Nancy Sales MD Work Phone: [facility] 12-17-2021 14:37-0400 Body temperature 98.01 [degF] Nancy Sales MD Work Phone: [facility] 12-17-2021 14:37-0400 Body weight 81.65 kg Nancy Sales MD Work Phone: [facility] 12-17-2021 14:37-0400 Diastolic blood pressure 66 mm[Hg] Nancy Sales MD Work Phone: [facility] 12-17-2021 14:37-0400 Heart rate 50 /min Nancy Sales MD Work Phone: [facility] 12-17-2021 14:37-0400 Respiratory rate 18 /min Nancy Sales MD Work Phone: [facility] 12-17-2021 14:37-0400 SaO2% (BldA) [Mass fraction] 98 % Nancy Sales MD Work Phone: [facility] 12-17-2021 14:37-0400 Systolic blood pressure 116 mm[Hg] Nancy Sales MD Work Phone: [facility] 01-09-2017 11:21-0400 BMI (Body Mass Index) 24.68 kg/m2 Mariela [facility] Work Phone: 01-09-2017 11:21-0400 Body weight 82.56 kg Mariela [facility] Work Phone: 01-09-2017 11:21-0400 Pulse (Heart Rate) 79 /min Mariela [facility] Work Phone: 01-09-2017 11:21-0400 Respiratory Rate 17 /min [facility] Work Phone: 01-09-2017 11:21-0400 Weight 82.56 kg Laura Virk DC [facility] Work Phone: 05-01-2012 15:35-0400 BMI (Body Mass Index) 26.43 kg/m2 Mariela [facility] Work Phone: 05-01-2012 15:35-0400 Body Temperature 97.4 [degF] [facility] Work Phone: 05-01-2012 15:35-0400 BP Diastolic 76 mm[Hg] Mariela [facility] Work Phone: 05-01-2012 15:35-0400 BP Systolic 123 mm[Hg] Mariela [facility] Work Phone: 05-01-2012 15:35-0400 BSA (Body Surface Area) 2.11 m2 Mariela [facility] Work Phone: 05-01-2012 15:35-0400 Pulse (Heart Rate) 53 /min [facility] Work Phone: 05-01-2012 15:35-0400 Pulse Oximetry 97 % Mariela [facility] Work Phone: 05-01-2012 15:35-0400 Respiratory Rate 16 /min Mariela [facility] Work Phone: 05-01-2012 15:35-0400 Weight 88.09 kg Mariela [facility] Work Phone: 08-14-2009 10:40-0500 Body weight 85.27 kg [facility] Work Phone: 08-14-2009 10:40-0500 Height 182.88 cm Mariela [facility] Work Phone: 08-14-2009 10:40-0500 Weight 85.27 kg Mariela [facility] Work Phone: Encounters Encounter Date Encounter Type Care Provider Facility Start: 08-14-2023 End: 08-15-2023 ambulatory [facility] Facility:[facility] Start: 08-13-2023 ambulatory [facility] Facility:[facility] Start: 07-16-2023 Telephone encounter [facility] Tele[facility] Procedures Date Procedure Procedure Detail Performing Clinician Start: 03-06-2023 End: 03-06-2023 Brncdilat rspse spmtry pre&post-brncdilat admn Nancy Sales MD Work Phone: Start: 02-04-2023 Prothrombin time [facility] Provider Start: 01-21-2023 Echocardiography [facility] Start: 12-12-2022 PACEMAKER REMOTE CHECK Franklin barahona MD Work Phone: Start: 10-21-2022 Ct thorax w/o contrast material Geovanny Ray MD Work Phone: Start: 08-21-2022 PACEMAKER CLINIC CHECK Franklin barahona MD Work Phone: Start: 08-21-2022 Ecg routine ecg w/least 12 lds w/i&r Franklin Jaramillo MD Work Phone: Start: 08-08-2022 Prothrombin time [facility] Provider Start: 05-28-2022 Radiologic exam chest 2 views Neeta Bowman APRN.[employer] Work Phone: Start: 05-14-2022 Radex spine lumbosacral 2/3 views Natalia Gaffney MD Work Phone: Start: 03-21-2022 Pulmonary stress testing Sameep Adama M D Work Phone: Start: 03-20-2022 PACEMAKER REMOTE CHECK Franklin barahona MD Work Phone: Start: 03-07-2022 Ct abdomen & pelvis w/contrast material Natalia Gaffney MD Work Phone: Start: 02-22-2022 Radiologic exam esophagus single contrast study Natalia Gaffney MD Work Phone: Start: 12-04-2021 Ct thorax w/o contrast material Macey Lee MD Work Phone: Start: 11-19-2021 Plethysmography lung volumes w/wo airway resist Macey Lee MD Work Phone: Start: 05-21-2017 End: 05-21-2017 Chiropractic manipulative tx spinal 3-4 regions Laura B Dossi DC Work Phone: Start: 03-03-2017 End: 03-03-2017 Chiropractic manipulative tx spinal 3-4 regions Laura B Dossi DC Work Phone: Start: 03-03-2017 End: 03-03-2017 Chiropractic manipulative tx spinal 3-4 regions Laura B Dossi DC Work Phone: Start: 02-17-2017 End: 02-17-2017 Chiropractic manipulative tx spinal 3-4 regions Laura B Dossi DC Work Phone: Start: 02-17-2017 End: 02-17-2017 Chiropractic manipulation Laura B Dossi DC Work Phone: Start: 02-10-2017 End: 02-10-2017 Chiropractic manipulative tx spinal 3-4 regions Laura B Dossi DC Work Phone: Start: 02-10-2017 End: 02-10-2017 Chiropractic manipulation Laura B Dossi DC Work Phone: Start: 01-30-2017 End: 01-30-2017 Chiropractic manipulative tx spinal 3-4 regions Laura B Dossi DC Work Phone: Start: 01-30-2017 End: 01-30-2017 Chiropractic manipulation Laura B Dossi DC Work Phone: Start: 01-28-2017 End: 01-28-2017 Chiropractic manipulative tx spinal 3-4 regions Laura B Dossi DC Work Phone: Start: 01-28-2017 End: 01-28-2017 Chiropractic manipulation Laura B Dossi DC Work Phone: Start: 01-23-2017 End: 01-23-2017 Chiropractic manipulative tx spinal 3-4 regions Laura B Dossi DC Work Phone: Start: 01-23-2017 End: 01-23-2017 Chiropractic manipulation Laura B Dossi DC Work Phone: Start: 01-16-2017 End: 01-20-2017 Chiropractic manipulative tx spinal 3-4 regions Laura B Dossi DC Work Phone: Start: 01-16-2017 End: 01-20-2017 Chiropractic manipulation Laura B Dossi DC Work Phone: Start: 01-14-2017 End: 01-14-2017 Chiropractic manipulative tx spinal 3-4 regions Laura B Dossi DC Work Phone: Start: 01-14-2017 End: 01-14-2017 Documentation of current medications Laura Dossi DC Start: 01-13-2017 End: 01-14-2017 Chiropractic manipulation Laura Stringer Dossi DC Work Phone: Start: 01-13-2017 End: 01-13-2017 Chiropractic manipulation Laura Stringer Dossi DC Work Phone: Start: 01-09-2017 End: 01-09-2017 Radex spine lumbosacral minimum 4 views Laura B Dossi DC Work Phone: Start: 01-09-2017 End: 01-09-2017 Documentation of current medications Mariela Lovelace Start: 01-09-2017 End: 01-09-2017 X-ray exam of lower spine Laura Stringer Dossi DC Work Phone: Start: 01-23-2012 End: 01-23-2012 Follow up Appt 1 week Sandrine Kc MD Start: 01-23-2012 End: 01-23-2012 Follow up Appt 1 week Sandrine Kc MD Start: 12-27-2011 End: 12-27-2011 Follow Up Appt 3 months Sandrine Kc MD Start: 12-27-2011 End: 12-27-2011 Follow Up Appt 3 months Sandrine Kc MD Start: 11-18-2011 End: 11-18-2011 Follow-up visit Sandrine Kc MD Start: 11-18-2011 End: 11-18-2011 Follow-up visit Sandrine Kc MD Start: 10-04-2011 End: 10-04-2011 Follow Up Appt 3 months Sandrine Kc MD Start: 10-04-2011 End: 10-04-2011 Follow Up Appt 3 months Sandrine Kc MD Start: 09-06-2011 End: 09-06-2011 [object Object] Mariela Lovelace Start: 08-23-2011 End: 09-06-2011 *CMP Complete Metabolic Panel Sandrine Kc MD Start: 08-23-2011 End: 09-06-2011 *UA - Urinalysis Sandrine Kc MD Start: 08-23-2011 End: 09-06-2011 CBC W Auto Differential panel - Blood Sandrine Kc MD Start: 08-23-2011 End: 08-23-2011 Ceftriaxone (Rocephin) per 250mg Sandrine Kc MD Start: 08-23-2011 End: 09-06-2011 Follow Up Appt 1 month Sandrine Kc MD Start: 08-23-2011 General examination of patient HEALTH MAINTENANCE EXAM Laura Virk SHEEAB Start: 08-23-2011 End: 09-06-2011 Lipid 1996 panel - Serum or Plasma Sandrine Kc MD Start: 08-23-2011 End: 09-06-2011 Prostate specific Ag [Mass/volume] in Serum or Plasma Sandrine Kc MD Start: 08-23-2011 End: 09-06-2011 Thyrotropin [Units/volume] in Serum or Plasma Sandrine Kc MD Start: 08-23-2011 End: 09-06-2011 *CMP Complete Metabolic Panel Sandrine Kc MD Start: 08-23-2011 End: 09-06-2011 *UA - Urinalysis Sandrine Kc MD Start: 08-23-2011 End: 09-06-2011 CBC W Auto Differential panel - Blood Sandrine Kc MD Start: 08-23-2011 End: 08-23-2011 Ceftriaxone (Rocephin) per 250mg Sandrine Kc MD Start: 08-23-2011 End: 09-06-2011 Follow Up Appt 1 month Sandrine Kc MD Start: 08-23-2011 General examination of patient HEALTH MAINTENANCE EXAM Marielaisrrael Lovelace Start: 08-23-2011 End: 09-06-2011 Lipid panel [AGGREGATE] Sandrine Kc MD Start: 08-23-2011 End: 09-06-2011 PSA Sandrine Kc MD Start: 08-23-2011 End: 09-06-2011 Thyroid stimulating hormone (TSH) Sandrine Kc MD Start: 08-21-2011 End: 08-23-2011 Ceftriaxone (Rocephin) per 250mg Sandrine Kc MD Start: 08-20-2011 End: 08-23-2011 Ceftriaxone (Rocephin) per 250mg Sandrine Kc MD Start: 08-19-2011 End: 08-20-2011 Ceftriaxone (Rocephin) per 250mg Sandrine Kc MD Start: 08-19-2011 End: 08-19-2011 Follow Up Appt Other Sandrine Kc MD Start: 08-19-2011 End: 08-19-2011 Ceftriaxone (Rocephin) per 250mg Sandrine Kc MD Start: 08-19-2011 End: 08-19-2011 Follow Up Appt Other Sandrine Kc MD Start: 08-16-2011 End: 08-18-2011 Follow up Appt 1 week Sandrine Kc MD Start: 08-16-2011 End: 08-18-2011 INR in Platelet poor plasma by Coagulation assay Sandrine Kc MD Start: 08-16-2011 End: 08-18-2011 Removal impacted cerumen instrumentation unilat Sandrine Kc MD Start: 08-16-2011 End: 08-18-2011 Coagulation factor induced.INR assay in platelet poor plasma Sandrine Kc MD Start: 08-16-2011 End: 08-18-2011 Follow up Appt 1 week Sandrine Kc MD Start: 08-16-2011 End: 08-18-2011 Remove impacted ear wax Sandrine Kc MD Start: 07-27-2010 End: 06-11-2011 Follow Up Appt 3 months Sandrine Kc MD Start: 07-27-2010 End: 07-27-2011 Urology Referral Sandrine Kc MD Start: 07-27-2010 End: 06-11-2011 Follow Up Appt 3 months Sandrine Kc MD Start: 07-27-2010 End: 07-27-2011 Urology Referral Sandrine Kc MD Start: 05-31-2010 End: 06-15-2010 *PT/INR - Standing Order Sandrine Kc MD Start: 05-31-2010 End: 06-15-2010 *PT/INR - Standing Order Sandrine Kc MD Start: 05-07-2010 End: 05-08-2010 Assay of prostate specific antigen total Sandrine Kc MD Start: 05-07-2010 End: 05-07-2010 Follow Up Appt 3 months Sandrine Kc MD Start: 05-07-2010 End: 10-30-2010 Hepatic function panel Sandrine Kc MD Start: 05-07-2010 End: 05-08-2010 Assay of psa, total Sandrine Kc MD Start: 05-07-2010 End: 05-07-2010 Follow Up Appt 3 months Sandrine Kc MD Start: 05-07-2010 End: 10-30-2010 Hepatic function panel Sandrine Kc MD Start: 02-05-2010 End: 02-05-2010 *Testosterone Sandrine Kc MD Start: 02-05-2010 End: 02-19-2010 Blood count complete automated Sandrine Kc MD Start: 02-05-2010 End: 02-05-2010 Follow Up Appt 3 months Sandrine Kc MD Start: 02-05-2010 End: 02-19-2010 Lipid panel Sandrine Kc MD Start: 02-05-2010 End: 02-05-2010 *Testosterone Sandrine Kc MD Start: 02-05-2010 End: 02-19-2010 Complete cbc, automated Sandrine Kc MD Start: 02-05-2010 End: 02-05-2010 Follow Up Appt 3 months Sandrine Kc MD Start: 02-05-2010 End: 02-19-2010 Lipid panel Sandrine Kc MD Start: 01-26-2010 End: 02-19-2010 *Testosterone Sandrine Kc MD Start: 01-26-2010 End: 02-19-2010 *Testosterone Sandrine Kc MD Start: 11-20-2009 End: 11-20-2010 Cardiac Referral Sandrine Kc MD Start: 11-20-2009 End: 11-20-2010 Cardiac Referral Sandrine Kc MD Start: 11-03-2009 End: 11-03-2009 Assay of thyroid stimulating hormone tsh Sandrine Kc MD Start: 11-03-2009 End: 11-03-2009 Blood count complete automated Sandrine Kc MD Start: 11-03-2009 End: 11-03-2009 Comprehensive metabolic panel Sandrine Kc MD Start: 11-03-2009 End: 11-03-2009 Follow Up as scheduled Sandrine Kc MD Start: 11-03-2009 End: 11-03-2009 Lipid panel Sandrine Kc MD Start: 11-03-2009 End: 11-03-2009 PSA screening Sandrine Kc MD Start: 11-03-2009 End: 11-03-2009 Assay of thyroid stimulating hormone tsh Sandrine Kc MD Start: 11-03-2009 End: 11-03-2009 Complete cbc, automated Sandrine Kc MD Start: 11-03-2009 End: 11-03-2009 Comprehen metabolic panel Sandrine Mosquera Start: 11-03-2009 End: 11-03-2009 Follow Up as scheduled Sandrine Kc MD Start: 11-03-2009 End: 11-03-2009 Lipid panel Sandrine Kc MD Start: 11-03-2009 End: 11-03-2009 PSA screening Sandrine Kc MD Start: 11-03-2009 End: 11-03-2009 Thyroid stimulating hormone (TSH) Sandrine Kc MD Start: 08-11-2005 End: 08-11-2005 Colonoscopy Mariela Lovelace Start: 08-11-1989 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 Start: 03-12-2026 Diabetes Screening Diabetes Screening [facility] Start: 01-31-2026 DIABETES SCREEN DIABETES SCREEN [facility] Start: 01-14-2026 DIABETES SCREEN DIABETES SCREEN [facility] Start: 03-07-2025 DIABETES SCREEN DIABETES SCREEN [facility] Start: 03-04-2025 DIABETES SCREEN DIABETES SCREEN [facility] Start: 01-19-2025 DIABETES SCREEN DIABETES SCREEN [facility] Start: 12-17-2024 DIABETES SCREEN DIABETES SCREEN [facility] Start: 07-09-2024 DIABETES SCREEN DIABETES SCREEN [facility] Start: 05-20-2024 Annual PCP Team Chronic Disease Visit Annual PCP Team Chronic Disease Visit [facility] Start: 05-20-2024 BP Controlled (<130/80) BP Controlled (<130/80) [facility] Start: 04-29-2024 BP Controlled (<130/80) BP Controlled (<130/80) [facility] Start: 03-12-2024 ANNUAL PCP TEAM CHRONIC DISEASE VISIT ANNUAL PCP TEAM CHRONIC DISEASE VISIT [facility] Start: 03-12-2024 BP CONTROLLED (<130/80) BP CONTROLLED (<130/80) [facility] Start: 02-01-2024 ANNUAL PCP TEAM CHRONIC DISEASE VISIT ANNUAL PCP TEAM CHRONIC DISEASE VISIT [facility] Start: 02-01-2024 BP CONTROLLED (<130/80) BP CONTROLLED (<130/80) [facility] Start: 01-14-2024 ANNUAL PCP TEAM CHRONIC DISEASE VISIT ANNUAL PCP TEAM CHRONIC DISEASE VISIT [facility] Start: 01-14-2024 BP CONTROLLED (<130/80) BP CONTROLLED (<130/80) [facility] Start: 11-23-2023 ANNUAL PCP TEAM CHRONIC DISEASE VISIT ANNUAL PCP TEAM CHRONIC DISEASE VISIT [facility] Start: 10-15-2023 ANNUAL PCP TEAM CHRONIC DISEASE VISIT ANNUAL PCP TEAM CHRONIC DISEASE VISIT [facility] Start: 08-22-2023 ANNUAL PCP TEAM CHRONIC DISEASE VISIT ANNUAL PCP TEAM CHRONIC DISEASE VISIT [facility] Start: 05-27-2023 ANNUAL PCP TEAM CHRONIC DISEASE VISIT ANNUAL PCP TEAM CHRONIC DISEASE VISIT [facility] Start: 05-13-2023 Cystourethroscopy CYSTO.PANENDO Procedures Routine Hematuria, unspecified type Expected: 05/13/2023 (Approximate) [facility] Work Phone: Immunizations Immunization Date Immunization Notes Care Provider Fa alba 05-12-2023 influenza, high dose seasonal, preservative-free Husam Chilel [facility] 05-12-2023 respiratory syncytia l virus (RSV) vaccine, bivalent (ABRYSVO) Husam Chilel [facility] 12-25-2022 zoster vaccine recombinant Flavia Whitmore [facility] 10-15-2022 zoster vaccine recombinant Maryan Berumen [facility] 07-18-2022 COVID-19 booster vaccine, age 12+ yr, bivalent (QuantiSenseBIONTLocation) Deisy Naylor [facility] 07-18-2022 influenza, high-dose , quadrivalent vaccine (FLUZONE HIGH DOSE QUADRIVALENT) Deisy Naylor [facility] 07-18-2022 influenza virus vaccine, unspecified formulation Neeta Bowman APRN.CNP Work Phone: [facility] 05-09-2021 COVID-19 vaccine, ag e 12+ yr (PFIZER-BIONTECH - PURPLE TOP) Jose Ramon Contreras MD Work Phone: [facility] 05-09-2021 influenza, high-dose , quadrivalent vaccine (FLUZONE HIGH DOSE QUADRIVALENT) Jose Ramon Contreras MD Work Phone: [facility] 10-04-2020 COVID-19 vaccine, ag e 12+ yr (PFIZER-BIONTECH - PURPLE TOP) Jose Ramon Contreras MD Work Phone: [facility] 09-08-2020 COVID-19 vaccine, ag e 12+ yr (PFIZER-BIONTECH - PURPLE TOP) Jose Ramon Contreras MD Work Phone: [facility] 07-05-2020 tetanus and diphther ia toxoids, adsorbed, preservative free, for adult use (5 Lf of tetanus toxoid and 2 Lf of diphtheria toxoid) Jose Ramon Contreras MD Work Phone: [facility] 05-19-2020 influenza, high-dose , quadrivalent vaccine (FLUZONE HIGH DOSE QUADRIVALENT) Jose Ramon Contreras MD Work Phone: [facility] 04-28-2019 influenza, high dose seasonal, preservative-free Jose Ramon Contreras MD Work Phone: [facility] Work Phone: 03-11-2019 influenza virus vaccine, unspecified formulation Jose Ramon Contreras MD Work Phone: [facility] Work Phone: 04-23-2018 influenza, high dose seasonal, preservative-free Jose Ramon Contreras MD Work Phone: [facility] Work Phone: 04-07-2017 influenza, high dose seasonal, preservative-free Jose Ramon Contreras MD Work Phone: [facility] Work Phone: 03-30-2016 influenza, high dose seasonal, preservative-free Jose Ramon Contreras MD Work Phone: [facility] 05-11-2015 influenza, high dose seasonal, preservative-free Jose Ramon Contreras MD Work Phone: [facility] Work Phone: 05-03-2015 pneumococcal conjuga te vaccine, 13 valent Jose Ramon Contreras MD Work Phone: [facility] Work Phone: 05-27-2014 influenza, seasonal, injectable Jose Ramon Contreras MD Work Phone: [facility] Work Phone: 05-17-2013 influenza virus vaccine, unspecified formulation Jose Ramon Contreras MD Work Phone: [facility] 05-17-2013 zoster vaccine, live Jose Ramon Contreras MD Work Phone: [facility] 07-27-2010 pneumococcal polysaccharide vaccine, 23 valent Laura Virk DC [facility] Work Phone: 07-27-2010 pneumococcal polysaccharide vaccine, 23 valent Mariela Zarcoimes [facility] Work Phone: 05-07-2010 influenza, seasonal, injectable Laura Doscatracho ALY [facility] Work Phone: 05-07-2010 influenza, seasonal, injectable Mariela Lovelace [facility] Work Phone: Payers Date Payer Category Payer Unknown [id number] 2019 Unknown [id number] 2019 Unknown RACHEL RAMOS MEDICARE SUPPLEMENT [id number] 2019-Present [phone] [id number] [place] [id number] Indemnity [id number] 2019 Unknown [id number] 2011 Medicare [id number] 2011 Medicare MEDICARE MEDICAR E A AND B [id number] 2011-Present [phone] [place] [address] Medicare [id number] 2011 Medicare [id number] 1943 Unknown [id number] 1 1943 Unknown [id number] 1 1943 Unknown [id number] 1 1943 Unknown [id number] 1 1943 Unknown [id number] 1 Social History Date Type Detail Facility Start: 11-22-2011 End: 05-20-2012 Tobacco smoking status NHIS Never smoked tobacco [facility] Start: 11-22-2011 End: 05-20-2012 Tobacco use and exposure Smokeless tobacco non-user [facility] Start: 10-29-2021 End: 06-12-2023 Alcohol intake Current non-drinker of alcohol (finding) [facility] Start: 06-19-2020 End: 08-15-2022 History SDOH Alcohol Frequency 1 [facility] Start: 07-01-2020 End: 08-15-2022 History SDOH Alcohol Std Drinks 98 [facility] Start: 07-01-2020 End: 08-15-2022 History SDOH Social Connections Phone 4 [facility] Start: 02-08-2020 End: 08-15-2022 History SDOH Social Connections Membership 2 [facility] Start: 02-08-2020 End: 08-15-2022 History SDOH Social Connections Living 3 [facility] Start: 02-08-[address] [facility] Start: 1945 Sex Assigned At Male [facility] Start: 10-19-2021 End: 05-27-2022 Exposure to SARS-CoV-2 (event) Not sure [facility] Work Phone: Start: 11-30-2021 End: 03-22-2022 Exposure to SARS-CoV-2 (event) Unable to assess [facility] Start: 08-15-2022 History SDOH Alcohol Std Drinks 0 [facility] Start: 1945 Sex Assigned At Choose not to disclose [facility] Start: 08-15-2022 End: 01-02-2023 History of Social function [facility] Start: 08-15-2022 End: 01-02-2023 Social connection and isolation panel [facility] How often do you get together with friends or relatives? Patient refused [facility] Do you belong to any clubs or organizations such as synagogue groups, unions, [employer] or athletic groups, or school groups? No [facility] Are you now , , , , never or living with a partner? [facility] How often to you hav e a drink containing alcohol? Never [facility] How hard is it for y ou to pay for the very basics like food, housing, medical care, and heating Not very hard [facility] Do you feel stress - tense, restless, nervous, or anxious, or unable to sleep at night because your mind is troubled all the time - these days [OSQ] To some extent [facility] (I/We) worried berkley er (my/our) food would run out before (I/we) got money to buy more. Sometimes true [facility] Start: 02-08-2020 Gender identity Identifies as male gender (finding) [facility] Start: 02-08-2020 Sexual orientation Heterosexual (finding) [facility] Medical Equipment Procedure Code Equipment Code Equipment Origin al Text Equipment Identifier Dates [id number] Implant - [id number] Start: 06-10-2012 Goals Date Patient Goal Desired Activity /State Personal health goal Clinical Notes 05-18-2020 to 08-13-2023 Telephone Encounter - Mireya Madsen, [facility] - 07/16/2023 1:35 PM ESTTelephone Encounter - Hilda Nicole LPN - 06/23/2023 2:42 PM ESTTelephone Encounter - HaimFlavia, [facility] - 06/10/2023 11:10 AM EDT Note Date & Type Note [facility] 08-13-2023 Note [facility] 08-07-2023 Note [facility] 07-16-[address] [facility] Ambulatory Pharmacy Anticoagulation Clinic Anticoagulation Episode Summary Anticoagulation Care Providers Provider Role Specialty Phone number Macey Lee MD [facility] Internal Medicine [phone] Gagandeep Marion Duarte is a 77 year old year old male patient being evaluated today for a Telemanagement visit. Patient is currently on the following anticoagulant(s) Warfarin. Labs PT INR (no units) Date Value 02/04/2023 3.4 (Kassie) 08/08/2022 2.5 08/09/2021 1.7 INR Home CoaguChek (no units) Date Value 07/16/2023 2.1 06/10/2023 2.7 05/17/2023 2.0 Hemoglobin (g/dL) Date Value 04/28/2023 13.6 07/09/2021 12.7 Hematocrit (%) Date Value 04/28/2023 42.6 07/09/2021 39.1 Platelet Count (k/uL) Date Value 04/28/2023 107 07/09/2021 142 Creatinine (mg/dL) Date Value 04/29/2023 1.13 03/12/2023 1.10 01/31/2023 1.40 07/09/2021 1.19 07/03/2020 1.09 04/28/2020 0.94 Bilirubin, Total (mg/dL) Date Value 03/12/2023 0.9 04/28/2020 1.2 ALT (U/L) Date Value 03/12/2023 11 04/28/2020 13 AST (U/L) Date Value 03/12/2023 27 04/28/2020 28 Estimated Creatinine Clearance: 58.2 mL/min (based on SCr of 1.13 mg/dL). ALLERGIES No Known Allergies Indication for Warfarin: Anticoagulant long-term use S/p mvr (mitral valve replacement) Anticoagulation Episode Summary Current INR goal: 2.5-3.5 Assessment: INR result of 2.1 is SUBtherapeutic due to: No obvious cause Pt denies missed or decrease doses, changes in Warfarin tablet color or shape, eating more green vegetables, or consumption of liver or green tea, Ensure, Boost, [place] Instant Breakfast, Mulit-Vitamins, and V-8. Plan: Current Warfarin Dosing As of 07/16/2023 Full warfarin instructions: 3 mg every Fri, Sat; 2.5 mg all other days Called and spoke to patient/caregiver Advised patient to increase total weekly regimen Next home INR check scheduled on 07/30/2023 Patient verbalizes understanding of the plan. Patient denies need for refills. Mireya Madsen RPh Clinical Pharmacist, Pharmacy [facility]tico[facility] Pharm[facility] Pager: [phone]. documented in this encounter [facility] 06-23-2023 Miscellaneous Notes Spoke to Anjelica/Abi, Patient picked up Coumadin 2.5mg today and has 4 refills remaining. Hilda Nicole LPN documented in this encounter [facility] 06-13-2023 Miscellaneous Notes Patient's request for medication is as follows: Requested Prescriptions Refused Prescriptions Disp Refills carvedilol (COREG) 3.125 mg tablet 180 tablet 1 Sig: Take 1 tablet by mouth two times a day. Refused By: ERIN WAY Reason for Refusal: Patient has requested refill too soon Refilled 06/10/2023 for 180 tabs and 1 refill to Anjelica. Prescription(s) as above. Please process accordingly. Erin Way LPN documented in this encounter [facility] 06-12-2023 Note [facility] 06-10-[address] [facility] Ambulatory Pharmacy Anticoagulation Clinic Anticoagulation Episode Summary Anticoagulation Care Providers Provider Role Specialty Phone number Macey Lee MD [facility] Internal Medicine [phone] Gagandeep Marion Duarte is a 77 year old year old male patient being evaluated today for a Telemanagement visit. Patient is currently on the following anticoagulant(s) Warfarin. Labs PT INR (no units) Date Value 02/04/2023 3.4 (Kassie) 08/08/2022 2.5 08/09/2021 1.7 INR (no units) Date Value 04/28/2023 3.0 INR Home CoaguChek (no units) Date Value 06/10/2023 2.7 05/17/2023 2.0 04/08/2023 3.5 Hemoglobin (g/dL) Date Value 04/28/2023 13.6 07/09/2021 12.7 Hematocrit (%) Date Value 04/28/2023 42.6 07/09/2021 39.1 Platelet Count (k/uL) Date Value 04/28/2023 107 07/09/2021 142 Creatinine (mg/dL) Date Value 04/29/2023 1.13 03/12/2023 1.10 01/31/2023 1.40 07/09/2021 1.19 07/03/2020 1.09 04/28/2020 0.94 Bilirubin, Total (mg/dL) Date Value 03/12/2023 0.9 04/28/2020 1.2 ALT (U/L) Date Value 03/12/2023 11 04/28/2020 13 AST (U/L) Date Value 03/12/2023 27 04/28/2020 28 Estimated Creatinine Clearance: 58.2 mL/min (based on SCr of 1.13 mg/dL). ALLERGIES No Known Allergies Indication for Warfarin: Anticoagulation Episode Summary Current INR goal: 2.5-3.5 Assessment: INR result of 2.7 is therapeutic Plan: Current Warfarin Dosing As of 06/10/2023 Full warfarin instructions: 2.5 mg every day Called and spoke to patient/caregiver Advised patient to continue current weekly dose as noted above Next home INR check scheduled on 06/24/2023 Patient verbalizes understanding of the plan. Flavia Begany, RPh Clinical Pharmacist, Pharmacy Anticoagulation Clinic Pharmacy Anticoagulation Clinic Pager: [phone]. documented in this encounter [facility] 06-10-2023 Miscellaneous Notes Patient's request for medication is as follows: Requested Prescriptions Pending Prescriptions Disp Refills carvedilol (COREG) 3.125 mg tablet [Pharmacy Med Name: Carvedilol 3.125 MG Oral Tablet] 180 tablet 1 Sig: Take 1 tablet by mouth twice daily Last seen 08/21/2022. Follow up scheduled for 09/2023. Prescription(s) as above. Please process accordingly. Efren Magallanes LPN documented in this encounter [facility] 06-09-2023 Miscellaneous Notes Patient phones requesting refills as follows: Requested Prescriptions Pending Prescriptions Disp Refills carvedilol (COREG) 3.125 mg tablet [Pharmacy Med Name: Carvedilol 3.125 MG Oral Tablet] 180 tablet 0 Sig: Take 1 tablet by mouth twice daily Please review and advise. Aisha Lugo RN documented in this encounter [facility] 05-20-2023 Note [facility] 05-20-2023 Miscellaneous Notes Pt called and is notified of providers results and instructions. Pt voices understanding. Fara Arshad, VIKY Called patient- no answer. Left message to call clinic for results. Jayshree Freeman LPN ----- Message from Robert Johnson PA-C sent at 05/20/2023 10:40 AM EDT ----- No abnormalities of the kidneys, ureters, or bladder. only a few scattered hypodense lesions throughout the spleen, too small to characterize but unchanged from 02/27/2022 and favored to be benign. LATASHA Thomas MT, PA-C documented in this encounter [facility] 05-20-2023 Instructions Merced Mckeon PA-C - 05/20/2023 2:[address] Contreras and see if you should still be on lisinopril documented in this encounter [facility] 05-20-2023 History of Presen t illness Narrative CC: Patient presents with: Follow Up: discuss Ed and CT and check ears HPI Gagandeep Duarte is a 77 year old male who presents today for f/u. LV was on 03/12/23. Requesting ear evaluation- because states they're itchy and he notices a lot of crap coming out of my ears. Pt reports that he was told there's no longer any need to take his Lisinopril anymore. He doesn't recall who told him that, but states they said his BP was normal so that medication wasn't needed. He states his memory has been poor lately. He states he's not worried about it and this has been going on about 1 year. From HPI 03/12/23: Elevated Alk Phos: Does not drink alcohol or take Tylenol. RUQ US obtained in 01/31 WNL. Denies any abdominal pain, jaundice, scleral icterus. Will recheck labs today to see if they are continuing to rise. Recently had hematuria, so he saw Robert Johnson PA-C. Pt reports that he thought that it was because he took viagra and masturbated. REVIEW OF SYSTEMS See HPI All other systems negative. PAST MEDICAL HISTORY Diagnosis Date Anxiety Anxiety and depression 12/26/2014 At risk for stroke Back pain Bradycardia CHF (congestive heart failure) ([facility]) Dyspepsia Fracture Hematuria, unspecified type 04/28/2023 History of sick sinus syndrome Hyperlipidemia 05/03/2015 Hypertension 12/26/2014 Hypogonadism in male Inguinal hernia Mitral valve regurgitation [facility] [place] valve replacement 1989 Panic attacks Permanent atrial fibrillation (HCC) atrial fibrillation diagnosed 2008, permanent by 2016 Pneumonia As a child Posterior vitreous detachment - Both Eyes 07/26/2014 Presence of cardiac pacemaker Medtronic dual-chamber pacemaker implanted 11/2016; indication: symptomatic sick sinus syndrome Pulmonary fibrosis (HCC) S/P MVR (mitral valve replacement) 12/02/[address] patient has a [facility] valve in 1989. On coumadin since. He needs to be in the 2.5 to 3.5. He has been on 2.5 on all days except Friday and sat of 3.0. 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 Shoulder impingement 01/06/2014 Verruca vulgaris PAST SURGICAL HISTORY Procedure Laterality Date BACK SURGERY HX 2006 lower back surgery BASIC PACEMAKER DUAL CHAMBER Left 11/11/2016 Medtronic dual-chamber pacemaker; indication: symptomatic sick sinus syndrome CARDIAC CATH 04/28/2020 moderate 60% disease of LAD; moderate LV systolic dysfunction ECHO TRANSESOPHAG CONGEN PROBE [facility] I&R 05/18/2020 see report; notable for moderate LV systolic dysfxn, LVEF 35% ECHOCARDIOGRAM 01/31/2020 mild LV systolic dysfxn; LVEF 51% EPS: VT ABLATION 09/22/2017 PVC RF catheter ablation at aortomitral continuity and junction of L/R coronary cusps HEART VALVE REPLACEMENT 1989 MVR (mechanical SJM) PHARMACOLOGIC NUCLEAR STRESS 03/06/2020 no ischemia; small region of scar in RCA territory; mild to moderate LV systolic dysfunction, LVEF 43% RPR 1ST INGUN HRNA AGE 3 YRS/> REDUCIBLE 2012 Hernia repair, inguinal ALLERGIES Patient has no known allergies. MEDICATIONS atorvastatin (LIPITOR) 20 mg tablet^Take 1 tablet by mouth once daily.^Disp: 90 tablet^Rfl: 2 carvedilol (COREG) 3.125 mg tablet^Take 1 tablet by mouth twice daily.^Disp: 180 tablet^Rfl: 3 iv contrast (will be provided with radiology test)^CT Urogram WO/W Inject, intravenously, once for 1 dose.No IV access, insert saline lock prior to the beginning of sedation, infusion, injection of imaging exam. Discontinue saline lock post exam. If Pt. has a central line or IVAD, may access for administration according to line specific nursing protocol. Once exam is complete flush line and de-access according to line specific nursing protocol in the CT contrast administration guidelines link.^Disp: 1 Each^Rfl: 0 lisinopril (ZESTRIL) 10 mg tablet^Take 1 tablet by mouth once daily.^Disp: 90 tablet^Rfl: [address] (PROTONIX) 40 mg tablet^Take 1 tablet by mouth once daily. Take on empty stomach, 1/2 hr before meal.^Disp: 60 tablet^Rfl: 0 PARoxetine (PAXIL) 20 mg tablet^Take 1 tablet by mouth once daily.^Disp: 30 tablet^Rfl: 5 potassium chloride (K-TAB) 10 mEq tablet^Take 1 tablet by mouth daily with breakfast.^Disp: 90 tablet^Rfl: 3 torsemide (DEMADEX) 20 mg tablet^Take 1 tablet by mouth once daily^Disp: 90 tablet^Rfl: 3 warfarin (COUMADIN) 2.5 mg tablet^Take 1 tablet by mouth once daily. Take as directed by the Coumadin Clinic^Disp: 30 tablet^Rfl: 5 warfarin (COUMADIN) 3 mg tablet^Take as directed by [facility] Anticoagulation Clinic.^Disp: 30 tablet^Rfl: 5 FAMILY HISTORY Problem Relation Age of Onset Diabetes Mother Diabetes Maternal Grandmother Diabetes Maternal Grandfather Social History Tobacco Use Smoking status: Never Smokeless tobacco: Never Vaping Use Vaping Use: Never used Substance Use Topics Alcohol use: No Drug use: No PHYSICAL EXAM BP 136/70 (BP Site: Left Arm, BP Position: Sitting, BP Cuff Size: Large Adult) Pulse 60 Temp 36.8 C (98.2 F) Resp 12 Ht 182.9 cm (6') Wt 80.3 kg (177 lb) SpO2 93% BMI 24.01 kg/m General Appearance: well appearing, in no acute distress, alert Psych: mood and affect broad and appropriate Skin: Skin color, texture, turgor normal for age HEENT: Eczematoid/scaly changes noted in bilateral ear canals Lungs: Lungs clear to auscultation. No wheezing, rhonchi, rales. Heart: RRR without murmur, gallop, or rubs. Abdomen: Abdomen soft, no tenderness to palpation. Bowel sounds normal. No masses, organomegaly No rigidity, guarding, or other evidence of acute abdomen demonstrated on exam Extremities: No gross deformities, significant edema, skin discoloration, clubbing or cyanosis. Neurological: Gait normal. No focal neurological deficits. Sensation grossly intact. ASSESSMENT/PLAN: 1. Elevated alkaline phosphatase level - ICD9: 790.5, ICD10: R74.8 (primary diagnosis) Still unclear cause. Elevated alk phos in conjunction with GGT previously thought to suggest hepatic cause, however previous right upper quadrant ultrasound within normal limits. Will check alk phos isoenzymes and refer to gastroenterology for further evaluation and management. - ALK PHOS ISOENZYM BL - CONSULT TO GASTROENTEROLOGY 2. Elevated serum GGT level - ICD9: 790.5, ICD10: R74.8 See above - CONSULT TO GASTROENTEROLOGY 3. Chronic eczematous otitis externa of both ears - ICD9: 380.23, ICD10: H60.8X3 Physical exam findings consistent with chronic otitis externa. We will start on topical otic drops (Derm otic) to use internally, and mometasone topical cream to use on external auricle. Discussed medication indications, proper use, and potential adverse effects. All questions and concerns addressed to patient satisfaction. - FLUOCINOLONE ACETONIDE OIL 0.01 % EAR DROPS - MOMETASONE 0.1 % TOPICAL CREAM 4. Hematuria, unspecified type - ICD9: 599.70, ICD10: R31.9 Follow-up as planned with urology to make sure this has been seen through Prescription instructions reviewed with patient as applicable. Potential red flag symptoms discussed with the patient. Reviewed appropriate action plan to take if red flag symptoms occur. Patient agreeable to treatment plan. Merced Mckeon PA-C documented in this encounter [facility] 05-20-2023 Nurse Note coumadin is managed by [facility] pharmacy dept Lisinopril d/c'd x 2 months documented in this encounter [facility] 05-19-[address] [facility] Ambulatory Pharmacy Anticoagulation Clinic Anticoagulation Episode Summary Anticoagulation Care Providers Provider Role Specialty Phone number Macey Lee MD Responsible Internal Medicine [phone] Gagandeep Duarte is a 77 year old year old male patient being evaluated today for a Telemanagement visit. Patient is currently on the following anticoagulant(s) Warfarin. Labs PT INR (no units) Date Value 02/04/2023 3.4 (Kassie) 08/08/2022 2.5 08/09/2021 1.7 INR (no units) Date Value 04/28/2023 3.0 INR Home CoaguChek (no units) Date Value 05/17/2023 2.0 04/08/2023 3.5 03/19/2023 3.5 Estimated Creatinine Clearance: 58.2 mL/min (based on SCr of 1.13 mg/dL). ALLERGIES No Known Allergies Indication for Warfarin: Anticoagulation Episode Summary Current INR goal: 2.5-3.5 Assessment: INR result of 2.0 is SUBtherapeutic due to: unknown cause - did not speak to patient Plan: Current Warfarin Dosing As of 05/19/2023 Full warfarin instructions: 05/19: 3.75 mg; Otherwise 2.5 mg every day Left voice message Advised patient to increase dose for 1 day only then resume weekly regimen Next INR check due on 06/02/2023 Patient instructed to call [facility] at [phone] with any questions or concerns. Husam Chilel RPh Clinical Pharmacist, Pharmacy Anticoagulation Clinic Pharmacy Anticoagulation Clinic Pager: [phone] documented in this encounter [facility] 05-16-2023 Note [facility] 04-30-[address] [facility] Ambulatory Pharmacy Anticoagulation Clinic Anticoagulation Episode Summary Anticoagulation Care Providers Provider Role Specialty Phone number Macey Lee MD Responsible Internal Medicine [phone] Gagandeep Duarte is a 77 year old year old male patient being evaluated today for a Telemanagement visit. Patient is currently on the following anticoagulant(s) Warfarin. Labs PT INR (no units) Date Value 02/04/2023 3.4 (Kassie) 08/08/2022 2.5 08/09/2021 1.7 INR (no units) Date Value 04/28/2023 3.0 INR Home CoaguChek (no units) Date Value 04/08/2023 3.5 03/19/2023 3.5 02/26/2023 2.6 Hemoglobin (g/dL) Date Value 04/28/2023 13.6 07/09/2021 12.7 Hematocrit (%) Date Value 04/28/2023 42.6 07/09/2021 39.1 Platelet Count (k/uL) Date Value 04/28/2023 107 07/09/2021 142 Creatinine (mg/dL) Date Value 04/29/2023 1.13 03/12/2023 1.10 01/31/2023 1.40 07/09/2021 1.19 07/03/2020 1.09 04/28/2020 0.94 Bilirubin, Total (mg/dL) Date Value 03/12/2023 0.9 04/28/2020 1.2 ALT (U/L) Date Value 03/12/2023 11 04/28/2020 13 AST (U/L) Date Value 03/12/2023 27 04/28/2020 28 Estimated Creatinine Clearance: 58.2 mL/min (based on SCr of 1.13 mg/dL). ALLERGIES No Known Allergies Indication for Warfarin: Anticoagulant long-term use S/p mvr (mitral valve replacement) Anticoagulation Episode Summary Current INR goal: 2.5-3.5 Assessment: INR result of 3.0 is therapeutic Seen recently for hematuria. Negative urinalysis and CBC was unremarkable. He has not had any blood in the last 2 days. He does have a catscan scheduled for an possible CA. Plan: Current Warfarin Dosing As of 04/30/2023 Full warfarin instructions: 2.5 mg every day Called and spoke to patient/caregiver Advised patient to continue current weekly dose as noted above Next home INR check scheduled on 05/12/23 Patient verbalizes understanding of the plan. Patient denies need for refills. Mireya Madsen [facility] Clinical Pharmacist, Pharmacy Anticoagulation Clinic Pharmacy Anticoagulation Clinic Pager: [phone]. documented in this encounter [facility] 04-29-2023 Note [facility] 04-29-2023 Note [facility] 04-29-2023 Instructions Robert Johnson PA-C - 04/29/2023 12:[address] Urogram to be scheduled at [facility] Cystoscopy to scheduled at [facility] - Urology ([place]) seen in 2017 they will contact patient # [phone] Urine Culture - - Pending Urine Cytology- - Pending Thank you, Sandor documented in this encounter [facility] 04-29-2023 History of Presen t illness Narrative Images from the original note were not included. Or UTI [facility] NEW CONSULT PATIENT CLINIC NOTE SERVICE DATE: 04/29/2023 SERVICE TIME: 12:10 PM NAME: Gagandeep Duarte Consultation requested by Macey Lee MD for an opinion regarding Gross Hematuria My final recommendations communicated back to the requesting physician by way of our shared Medical record. CHIEF COMPLAINT: Gross Hematuria HISTORY OF PRESENT ILLNESS: Gagandeep Duarte is a 77 year old male presenting for New Patient Consult for Gross Hematuria The patient reports he has had a few episodes with gross hematuria, with no known cause We discussed the need for full hematuria workup due to the Gross Blood in the urine. These tests and procedures will be ordered today. No history of Kidney stones Or UTI LUTS: DYSURIA: no URGENCY: No FREQUENCY:6 per day NOCTURIA: 1 per night STRAINING TO VOID: No EMPTIES COMPLETELY: No UTI: No GROSS HEMATURIA: yes UA DIPSTICK POSITIVE ONLY: yes Other symptoms: LABS: PSA (ng/mL) Date Value 09/06/2011 1.9 PSA Screening (ng/mL) Date Value 03/17/2017 4.08 10/01/2013 2.35 Hematocrit (%) Date Value 04/28/2023 42.6 01/31/2023 41.7 01/14/2023 39.7 07/09/2021 39.1 04/28/2020 41.8 01/31/2020 41.7 PSA (ng/mL) Date Value 09/06/2011 1.9 PSA Screening (ng/mL) Date Value 03/17/2017 4.08 10/01/2013 2.35 Creatinine Date Value Ref Range Status 03/12/2023 1.10 0.73 - 1.22 mg/dL Final 01/31/2023 1.40 (H) 0.73 - 1.22 mg/dL Final 01/14/2023 1.26 (H) 0.73 - 1.22 mg/dL Final 03/07/2022 1.23 (H) 0.73 - 1.22 mg/dL Final MEDICATIONS: pantoprazole DR (PROTONIX) 40 mg tablet^Take 1 tablet by mouth once daily. Take on empty stomach, 1/2 hr before meal.^Disp: 60 tablet^Rfl: 0 PARoxetine (PAXIL) 20 mg tablet^Take 1 tablet by mouth once daily.^Disp: 30 tablet^Rfl: 5 atorvastatin (LIPITOR) 20 mg tablet^Take 1 tablet by mouth once daily.^Disp: 90 tablet^Rfl: 2 potassium chloride (K-TAB) 10 mEq tablet^Take 1 tablet by mouth daily with breakfast.^Disp: 90 tablet^Rfl: 3 torsemide (DEMADEX) 20 mg tablet^Take 1 tablet by mouth once daily^Disp: 90 tablet^Rfl: 3 warfarin (COUMADIN) 2.5 mg tablet^Take 1 tablet by mouth once daily. Take as directed by the Coumadin Clinic^Disp: 30 tablet^Rfl: 5 carvedilol (COREG) 3.125 mg tablet^Take 1 tablet by mouth twice daily.^Disp: 180 tablet^Rfl: 3 warfarin (COUMADIN) 3 mg tablet^Take as directed by [facility] Anticoagulation Clinic.^Disp: 30 tablet^Rfl: 5 iv contrast (will be provided with radiology test)^CT Urogram WO/W Inject, intravenously, once for 1 dose.No IV access, insert saline lock prior to the beginning of sedation, infusion, injection of imaging exam. Discontinue saline lock post exam. If Pt. has a central line or IVAD, may access for administration according to line specific nursing protocol. Once exam is complete flush line and de-access according to line specific nursing protocol in the CT contrast administration guidelines link.^Disp: 1 Each^Rfl: 0 0.9 % sodium chloride (NACL 0.9%) infusion^Inject 150 mL/hr intravenously one time only for 1 dose. Administer at rate defined per CT contrast administration specifications. To be provided with radiology test.^Disp: 1 Each^Rfl: 0 lisinopril (ZESTRIL) 10 mg tablet^Take 1 tablet by mouth once daily.^Disp: 90 tablet^Rfl: 3 PAST MEDICAL HISTORY: PAST MEDICAL HISTORY Diagnosis Date Anxiety Anxiety and depression 12/26/2014 At risk for stroke Back pain Bradycardia CHF (congestive heart failure) ([facility]) Dyspepsia Fracture Hematuria, unspecified type 04/28/2023 History of sick sinus syndrome Hyperlipidemia 05/03/2015 Hypertension 12/26/2014 Hypogonadism in male Inguinal hernia Mitral valve regurgitation [place]o valve replacement 1989 Panic attacks Permanent atrial fibrillation (HCC) atrial fibrillation diagnosed 2008, permanent by 2016 Pneumonia As a child Posterior vitreous detachment - Both Eyes 07/26/2014 Presence of cardiac pacemaker Medtronic dual-chamber pacemaker implanted 11/2016; indication: symptomatic sick sinus syndrome Pulmonary fibrosis (HCC) S/P MVR (mitral valve replacement) 12/02/[address] patient has a [place] Angelo valve in 1989. On coumadin since. He needs to be in the 2.5 to 3.5. He has been on 2.5 on all days except Friday and sat of 3.0. 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 Shoulder impingement 01/06/2014 Verruca vulgaris REVIEW OF SYSTEMS: GENERAL: No fever, chills, weight loss, or fatigue. PHYSICAL EXAMINATION: Blood pressure 122/78, pulse 72, temperature 36.6 C (97.8 F), temperature source Temporal, resp. rate 14, height 182.9 cm (6'), weight 80.4 kg (177 lb 3.2 oz), SpO2 94 %. GENERAL: WNL nutrition, no deformities, healthy appearing NEURO: Awake, alert and oriented x 3 and Normal gait PSYCH: No signs of depression, anxiety, or agitation ENMT (Ear, Nose, Mouth, Throat): No masses, adenopathy, icterus. Thyroid nonpalpable RESP: NL effort, no retractions or purse-lip breathing. CV: No extremity swelling, varices, edema, pallor, erythema GASTROINTESTINAL: Soft, nontender, nondistended, no masses. HERNIAS: None SKIN: No rash, lesions No palpable lymphadenopathy MUSCULOSKELETAL: Extremities normal. No deformities, edema, clubbing or skin discoloration. PROBLEM LIST REVIEW: Yes- 223 ml LABS: Results for orders placed or performed in visit on 04/28/23 CBC + DIFF Result Value Ref Range WBC 6.65 3.70 - 11.00 k/uL RBC 4.23 4.20 - 6.00 m/uL Hemoglobin 13.6 13.0 - 17.0 g/dL Hematocrit 42.6 39.0 - 51.0 % MCV 100.7 (H) 80.0 - 100.0 fL MCH 32.2 26.0 - 34.0 pg MCHC 31.9 30.5 - 36.0 g/dL RDW-CV 14.8 11.5 - 15.0 % Platelet Count 107 (L) 150 - 400 k/uL MPV 11.8 9.0 - 12.7 fL Neutrophils % 60.0 % Abs Neut 3.99 1.45 - 7.50 k/uL Lymphocytes % 25.7 % Abs Lymph 1.71 1.00 - 4.00 k/uL Monocytes % 10.2 % Abs [place] 0.68 <0.87 k/uL Eosinophils % 2.7 % Abs Eosin 0.18 <0.46 k/uL Basophils % 0.9 % Abs Baso 0.06 <0.11 k/uL Immature Granulocytes % 0.5 % Abs Immature Gran 0.03 <0.10 k/uL NRBC 0.0 /100 WBC Absolute nRBC <0.01 <0.01 k/uL Diff Type Auto PROTHROMBIN TIME/PT Result Value Ref Range PT Sec 29.5 (H) 9.7 - 13.0 sec INR 3.0 (H) 0.9 - 1.3 *Note: Due to a large number of results and/or encounters for the requested time period, some results have not been displayed. A complete set of results can be found in Results Review. Urine Culture: Pending Urine Cytology: Pending PVR: 0 ml IMAGING: CT Urogram - Pending IMPRESSION/PLAN: 77 year old male with 1. Gross hematuria - ICD9: 599.71, ICD10: R31.0 (primary diagnosis) 2. Hematuria, unspecified type - ICD9: 599.70, ICD10: R31.9 CT Urogram to be scheduled at [facility] Cystoscopy to scheduled at [facility] - Urology ([place]) seen in 2017 they will contact patient # [phone] Urine Culture - - Pending Urine Cytology- - Pending I spent a total of 40 minutes on the date of the service which included preparing to see the patient, face to face patient care, completing clinical documentation, obtaining and/or reviewing separately obtained history, performing a medically appropriate examination, counseling and educating the patient/family/caregiver, ordering medications, tests, or procedures, and care coordination. LATASHA Thomas MT, PA-C Verified name and date of . CC Post Void Residual HPI: Gagandeep Duarte is a 77 year old male. The patient is here now for an appointment with LATASHA Thomas MT, PA-COV. Procedure: Explained procedure to patient and verbalizes understanding. Performed a PVR. Patient unable to urinate. States he went just prior to leaving home. Results of scan: 28 mL The patient tolerated the procedure well. Plan: Appointment with Robert. Provided with water and encouraged to drink as Robert does request specimen in event of need for further testing. documented in this encounter [facility] 04-28-2023 Note [facility] 04-12-2023 Miscellaneous Notes Reason for Call: Bleeding Patient reports bleeding underneath band aide after scratched by cat. Outcome: Advised ER and patient agreed with the recommendation and will go to ER if bleeding does not stop after 10 minutes of direct pressure. Reason for Disposition [1] Bleeding AND [2] won't stop after 10 minutes of direct pressure (using correct technique) Protocols used: Cuts and [id number] documented in this encounter [facility] 04-11-2023 Miscellaneous Notes Patient notified and will come in to get blood work. Flavia Vasquez LPN Please let patient know Neeta Bowman, TIRE SPOTTER And I spoke about his labs, and we want to add on another one to check why that liver function is so high. If he can obtain that soon, that'd be great. Merced Mckeon PA-C documented in this encounter [facility] 04-03-2023 Miscellaneous Notes Patient due to test INR today. Will continue to monitor for results. Richard Ramirez RPh documented in this encounter [facility] 04-01-2023 Miscellaneous Notes Patient has been identified by name and date of : No Patient phones for refill(s): Requested Prescriptions Pending Prescriptions Disp Refills pantoprazole DR (PROTONIX) 40 mg tablet 60 tablet 0 Sig: Take 1 tablet by mouth once daily. Take on empty stomach, 1/2 hr before meal. Date of last office visit in primary care: 03/12/23 Last 2 Encounter Wt Readings: Date: Wt: 03/12/2023 80.7 kg (178 lb) 03/06/2023 78.9 kg (174 lb) Previous labs/tests for medication: Not applicable Please advise. Thank you. Flavia Colin LPN Patient has been identified by name and date of : Yes Last office visit in this department: 03/12/2023 RX INSTRUCTIONS: Patient aware RX will be sent to pharmacy. No need to notify patient. Patient phones requesting refills as follows: Requested Prescriptions Pending Prescriptions Disp Refills pantoprazole DR (PROTONIX) 40 mg tablet 60 tablet 0 Sig: Take 1 tablet by mouth once daily. Take on empty stomach, 1/2 hr before meal. Please review and advise. Makayla Robles documented in this encounter [facility] 03-12-2023 Note [facility] 03-12-2023 History of Presen t illness Narrative CC: Patient presents with: Follow Up: lung tests and ECHO test results needs explained per patient, needs coumadin refill HPI Gagandeep Marion Duarte is a 77 year old adult who presents today for 4-6 week f/u, as pt was unable to get in with cardiology. LV was with Neeta Bowman, TIRE SPOTTER 01/31/23. Requesting that we discuss his echo and pulmonary tests. The latter had been ordered by pulmonology but will not be seeing until 10/04.Has not been back to the ER since prior visit. A Fib/CHF: Sometimes still has trouble breathing when he lays on his left side. I have to forcefully breathe; I can't just let my body control my breathing. Denies any exertional SOB with normal exertion. Elevated Alk Phos: Does not drink alcohol or take Tylenol. RUQ US obtained in 01/31 WNL. Denies any abdominal pain, jaundice, scleral icterus. Will recheck labs today to see if they are continuing to rise. REVIEW OF SYSTEMS RESPIRATORY: SEE HPI CARDIOVASCULAR: SEE HPI GI: SEE HPI All other systems negative. PAST MEDICAL HISTORY Diagnosis Date Anxiety Anxiety and depression 12/26/2014 At risk for stroke Back pain Bradycardia CHF (congestive heart failure) (HCC) Dyspepsia Fracture History of sick sinus syndrome Hyperlipidemia 05/03/2015 Hypertension 12/26/2014 Hypogonadism in male Inguinal hernia Mitral valve regurgitation [employer] Angelo valve replacement 1989 Panic attacks Permanent atrial fibrillation (HCC) atrial fibrillation diagnosed 2008, permanent by 2016 Pneumonia As a child Posterior vitreous detachment - Both Eyes 07/26/2014 Presence of cardiac pacemaker Medtronic dual-chamber pacemaker implanted 11/2016; indication: symptomatic sick sinus syndrome Pulmonary fibrosis (HCC) S/P MVR (mitral valve replacement) 12/02/[address] patient has a [place] Angelo valve in 1989. On coumadin since. He needs to be in the 2.5 to 3.5. He has been on 2.5 on all days except Friday and sat of 3.0. 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 Shoulder impingement 01/06/2014 Verruca vulgaris PAST SURGICAL HISTORY Procedure Laterality Date BACK SURGERY HX 2007 lower back surgery BASIC PACEMAKER DUAL CHAMBER Left 11/11/2016 Medtronic dual-chamber pacemaker; indication: symptomatic sick sinus syndrome CARDIAC CATH 04/28/2020 moderate 60% disease of LAD; moderate LV systolic dysfunction ECHO TRANSESOPHAG CONGEN PROBE [facility] IMGNG I&R 05/18/2020 see report; notable for moderate LV systolic dysfxn, LVEF 35% ECHOCARDIOGRAM 01/31/2020 mild LV systolic dysfxn; LVEF 51% EPS: VT ABLATION 09/22/2017 PVC RF catheter ablation at aortomitral continuity and junction of L/R coronary cusps HEART VALVE REPLACEMENT 1989 MVR (mechanical SJM) PHARMACOLOGIC NUCLEAR STRESS 03/06/2020 no ischemia; small region of scar in RCA territory; mild to moderate LV systolic dysfunction, LVEF 43% RPR 1ST INGUN HRNA AGE 3 YRS/> REDUCIBLE 2011 Hernia repair, inguinal ALLERGIES Patient has no known allergies. MEDICATIONS PARoxetine (PAXIL) 20 mg tablet^Take 1 tablet by mouth once daily.^Disp: 30 tablet^Rfl: 5 atorvastatin (LIPITOR) 20 mg tablet^Take 1 tablet by mouth once daily.^Disp: 90 tablet^Rfl: 2 potassium chloride (K-TAB) 10 mEq tablet^Take 1 tablet by mouth daily with breakfast.^Disp: 90 tablet^Rfl: 3 torsemide (DEMADEX) 20 mg tablet^Take 1 tablet by mouth once daily^Disp: 90 tablet^Rfl: 3 lisinopril (ZESTRIL) 10 mg tablet^Take 1 tablet by mouth once daily.^Disp: 90 tablet^Rfl: 3 warfarin (COUMADIN) 2.5 mg tablet^Take 1 tablet by mouth once daily. Take as directed by the Coumadin Clinic^Disp: 30 tablet^Rfl: 5 carvedilol (COREG) 3.125 mg tablet^Take 1 tablet by mouth twice daily.^Disp: 180 tablet^Rfl: 3 warfarin (COUMADIN) 3 mg tablet^Take as directed by [facility] Anticoagulation Clinic.^Disp: 30 tablet^Rfl: 5 FAMILY HISTORY Problem Relation Age of Onset Diabetes Mother Diabetes Maternal Grandmother Diabetes Maternal Grandfather Social History Tobacco Use Smoking status: Never Smokeless tobacco: Never Vaping Use Vaping Use: Never used Substance Use Topics Alcohol use: No Drug use: No PHYSICAL EXAM BP 110/58 (BP Site: Left Arm, BP Position: Sitting, BP Cuff Size: Large Adult) Pulse (!) 48 Temp 36.8 C (98.2 F) Resp 12 Ht 177.8 cm (5' 10 ) Wt 80.7 kg (178 lb) SpO2 98% BMI 25.54 kg/m General Appearance: well appearing, in no acute distress, alert Pysch: mood and affect broad and appropriate Skin: Skin color, texture, turgor normal for age; Head: normocephalic, atraumatic Lymph nodes: No cervical lymphadenopathy Lungs: Lungs clear to auscultation. No wheezing, rhonchi, rales. Heart: RRR without murmur, gallop, or rubs. No ectopy Abdomen: Normal abdominal exam Extremities: +Trace cheri LE edema in shins; No gross deformities,skin discoloration, clubbing or cyanosis. Neurological: Gait normal. No focal neurological deficits. Sensation grossly intact. ASSESSMENT/PLAN: 1. Chronic combined systolic and diastolic congestive heart failure (HCC) - ICD9: 428.42, 428.0, ICD10: I50.42 (primary diagnosis) Reassurance provided regarding recent echo findings. Keep f/u as planned with electrophysiology. Advised to schedule follow-up with general cardiology, Dr. Contreras. 2. Elevated alkaline phosphatase level - ICD9: 790.5, ICD10: R74.8 Unclear etiology. Reassurance provided regarding recent abdominal ultrasound (did not indicate underlying liver pathology). We will recheck labs to see if they are continue to trend upwards - COMP METABOLIC PANEL - GGT BLD 3. Pulmonary fibrosis (HCC) - ICD9: 515, ICD10: J84.10 Reassurance provided regarding normal testing. Advised follow-up as planned with pulmonology. 4. Permanent atrial fibrillation (HCC) - ICD9: 427.31, ICD10: I48.21 CCM per electrophysiology. 5. Other fatigue - ICD9: 780.79, ICD10: R53.83 Unclear cause. Patient reports he is not overly concerned about it. We will check vitamin D level as well as labs listed above - VITAMIN D 25 HYDROXY Prescription instructions reviewed with patient as applicable. Potential red flag symptoms discussed with the patient. Reviewed appropriate action plan to take if red flag symptoms occur. Patient agreeable to treatment plan. Merced Mckeon PA-C documented in this encounter [facility] 03-07-2023 Note [facility] 03-07-2023 History of Presen t illness Narrative [facility] Telephonic Outreach Provider Marina/JUAN ANTONIO Mr. Duarte thought he was caught up with his Home Monitoring Questionnaire Agrees to have Instructions on how to find the Home Monitoring Questionnaire sent via [employer] Contacted for: Engagement Contact made with patient: Yes Patient identified by name and date of . Discussed care with patient Outcomes: Patient forgot, reminder given Are you experiencing any new or worsening symptoms you need to talk about today? No Based on crimp setter, the following disposition is advised: No symptoms or symptoms present, not severe. Routed to: No Action Needed DIONNA Education Provided this Outreach: Yes Tamra Mock RN March 07, 2023 3:00 PM documented in this encounter [facility] 03-06-2023 Note [facility] 03-06-2023 Note [facility] 03-06-2023 History of Presen t illness Narrative PULM FUNCTION SMARTBLOCK: Provider: Nancy Sales MD Assisting Tech: Bonnie Caal RPFT Spirometry: 1 DLCO: 1 6 MW: [address] encounter [facility] 03-03-2023 Note [facility] 02-26-[address] [facility] Ambulatory Pharmacy Anticoagulation Clinic Anticoagulation Episode Summary Anticoagulation Care Providers Provider Role Specialty Phone number Macey Lee MD [facility] Internal Medicine [phone] Gagandeep Marion Duarte is a 77 year old year old adult patient being evaluated today for a Telemanagement visit. Patient is currently on the following anticoagulant(s) Warfarin. Labs PT INR (no units) Date Value 02/04/2023 3.4 (Kassie) 08/08/2022 2.5 08/09/2021 1.7 INR Home CoaguChek (no units) Date Value 02/26/2023 2.6 02/10/2023 2.1 02/04/2023 3.4 Hemoglobin (g/dL) Date Value 01/31/2023 13.4 07/09/2021 12.7 Hematocrit (%) Date Value 01/31/2023 41.7 07/09/2021 39.1 Platelet Count (k/uL) Date Value 01/31/2023 205 07/09/2021 142 Creatinine (mg/dL) Date Value 01/31/2023 1.40 01/14/2023 1.26 03/07/2022 1.23 07/09/2021 1.19 07/03/2020 1.09 04/28/2020 0.94 Bilirubin, Total (mg/dL) Date Value 01/31/2023 1.0 04/28/2020 1.2 ALT (U/L) Date Value 01/31/2023 11 04/28/2020 13 AST (U/L) Date Value 01/31/2023 30 04/28/2020 28 Estimated Creatinine Clearance (based on SCr of 1.4 mg/dL (H)) Female: 35.2 mL/min (A) Male: 44.2 mL/min (A) ALLERGIES No Known Allergies Indication for Warfarin: Anticoagulant long-term use S/p mvr (mitral valve replacement) Anticoagulation Episode Summary Current INR goal: 2.5-3.5 Assessment: INR result of 2.6 is therapeutic Plan: Current Warfarin Dosing As of 02/26/2023 Full warfarin instructions: 2.5 mg every day Called and spoke to patient/caregiver Advised patient to continue current weekly dose as noted above Next home INR check scheduled on 03/12/23 Patient verbalizes understanding of the plan. Patient denies need for refills. Mireya Madsen [facility] Clinical Pharmacist, Pharmacy Anticoagulation Clinic Pharmacy Anticoagulation Clinic Pager: [phone]. documented in this encounter [facility] 02-14-2023 Miscellaneous Notes Patient notified. Flavia Colin LPN Please call patient and let him know I spoke to Neeta Bowman CNP since she knows him personally, and we are not quite sure -- we can talk about it further at upcoming visit, and go through more questions and if no answer as to why we can refer him to GI. Merced Mckeon PA-C patient notified and is asking why would his liver enzymes go up. Patient stated that he does not take ibuprofen nor does he take tylenol or ETOH. please advise further Flavia Colin LPN Please call patient and let him know his ultrasound of his liver was normal. No further intervention is needed at this time. Merced Mckeon PA-C documented in this encounter [facility] 02-12-[address] [facility] Ambulatory Pharmacy Anticoagulation Clinic Anticoagulation Episode Summary Anticoagulation Care Providers Provider Role Specialty Phone number Macey Lee MD Responsible Internal Medicine [phone] Gagandeep Marion Duarte is a 77 year old year old adult patient being evaluated today for a telemanagement visit. Patient is currently on the following anticoagulant(s) Warfarin. Labs PT INR (no units) Date Value 02/04/2023 3.4 (Kassie) 08/08/2022 2.5 08/09/2021 1.7 INR Home CoaguChek (no units) Date Value 02/10/2023 2.1 02/04/2023 3.4 02/02/2023 6.0 Hemoglobin (g/dL) Date Value 01/31/2023 13.4 07/09/2021 12.7 Hematocrit (%) Date Value 01/31/2023 41.7 07/09/2021 39.1 Platelet Count (k/uL) Date Value 01/31/2023 205 07/09/2021 142 Creatinine (mg/dL) Date Value 01/31/2023 1.40 01/14/2023 1.26 03/07/2022 1.23 07/09/2021 1.19 07/03/2020 1.09 04/28/2020 0.94 Bilirubin, Total (mg/dL) Date Value 01/31/2023 1.0 04/28/2020 1.2 ALT (U/L) Date Value 01/31/2023 11 04/28/2020 13 AST (U/L) Date Value 01/31/2023 30 04/28/2020 28 Estimated Creatinine Clearance (based on SCr of 1.4 mg/dL (H)) Female: 35.2 mL/min (A) Male: 44.2 mL/min (A) ALLERGIES No Known Allergies Indication for Warfarin: S/p mvr (mitral valve replacement) Anticoagulant long-term use Anticoagulation Episode Summary Current INR goal: 2.5-3.5 Assessment: INR result of 2.1 is SUBtherapeutic due to: Following recent dosage decrease He said he is going to start having more vitamin K moving forwards. Plan: Current Warfarin Dosing As of 02/12/2023 Full warfarin instructions: 2.5 mg every day Advised patient to continue current weekly dose as noted above Next home INR check scheduled on 02/17/23 Patient verbalizes understanding of the plan. Patient denies need for refills. Mireya Madsen RPh Clinical Pharmacist, Pharmacy Anticoagulation Clinic Pharmacy Anticoagulation Clinic Pager: [phone]. documented in this encounter [facility] 02-05-2023 Note [facility] 02-04-2023 Miscellaneous Notes Patient returned call and given provider's message below with verbalized understanding. Transferred to [facility] to schedule US. Left message to call office. 02/04/2023 1:39 PM Please let patient know Alkaline phosphate increased again and another level was elevated indicating a liver cause for elevation. I am ordering an US to further evaluate liver Thank you Neeta Bowman APRN.TIRE SPOTTER documented in this encounter [facility] 02-04-[address] [facility] Ambulatory Pharmacy Anticoagulation Clinic Anticoagulation Episode Summary Anticoagulation Care Providers Provider Role Specialty Phone number Macey Lee MD Responsible Internal Medicine [phone] Gagandeep Marion Duarte is a 77 year old year old adult patient being evaluated today for a Telemanagement visit. Patient is currently on the following anticoagulant(s) Warfarin. Labs PT INR (no units) Date Value 02/04/2023 3.4 (Kassie) 08/08/2022 2.5 08/09/2021 1.7 INR Home CoaguChek (no units) Date Value 02/02/2023 6.0 01/08/2023 3.7 12/17/2022 3.4 Hemoglobin (g/dL) Date Value 01/31/2023 13.4 07/09/2021 12.7 Hematocrit (%) Date Value 01/31/2023 41.7 07/09/2021 39.1 Platelet Count (k/uL) Date Value 01/31/2023 205 07/09/2021 142 Creatinine (mg/dL) Date Value 01/31/2023 1.40 01/14/2023 1.26 03/07/2022 1.23 07/09/2021 1.19 07/03/2020 1.09 04/28/2020 0.94 Bilirubin, Total (mg/dL) Date Value 01/31/2023 1.0 04/28/2020 1.2 ALT (U/L) Date Value 01/31/2023 11 04/28/2020 13 AST (U/L) Date Value 01/31/2023 30 04/28/2020 28 Estimated Creatinine Clearance (based on SCr of 1.4 mg/dL (H)) Female: 35.2 mL/min (A) Male: 44.2 mL/min (A) ALLERGIES No Known Allergies Indication for Warfarin: S/p mvr (mitral valve replacement) Anticoagulant long-term use Anticoagulation Episode Summary Current INR goal: 2.5-3.5 Assessment: INR result of 3.4 (kassie) is therapeutic Of Note: Alkaline Phosphatase is elevated and INTM is sending patient for Liver US Plan: Current Warfarin Dosing As of 02/04/2023 Full warfarin instructions: 02/04: 2.5 mg; 02/05: 2.5 mg; 02/06: 1.25 mg; 02/07: 2.5 mg; 02/08: 1.25 mg; 02/09: 2.5 mg Called and spoke to patient/caregiver Advised patient to decrease total weekly regimen Next home INR check scheduled on 02/10/2023 Patient verbalizes understanding of the plan. Patient denies need for refills. Maryan Berumen RP Clinical Pharmacist, Pharmacy Anticoagulation Clinic Pharmacy Anticoagulation Clinic Pager: [phone]. PATIENT CALL Patient called call center regarding results. Patient tested INR today and it was 3.4. Patient will report the result to Baljit, hasn't done so yet. PT INR (no units) Date Value 08/08/2022 2.5 08/09/2021 1.7 01/25/2021 3.4 (BioTel) INR Home CoaguChek (no units) Date Value 02/02/2023 6.0 01/08/2023 3.7 12/17/2022 3.4 Greg Wilson (Plant Puller) documented in this encounter [facility] 02-03-2023 Miscellaneous Notes PATIENT CALL Received call from Summer with [employer] INR to report home meter result for patient. [facility] has already addressed this result (see below); nothing further needed at this time. Fara Chávez CPhT (Overnight Caregiver) Pharmacy Anticoagulation Clinic [facility] Ambulatory Pharmacy Anticoagulation Clinic Anticoagulation Episode Summary Anticoagulation Care Providers Provider Role Specialty Phone number Macey Lee MD Responsible Internal Medicine [phone] Gagandeep Marion Duarte is a 77 year old year old adult patient being evaluated today for a Telemanagement visit. Patient is currently on the following anticoagulant(s) Warfarin. Labs PT INR (no units) Date Value 08/08/2022 2.5 08/09/2021 1.7 01/25/2021 3.4 (BioTel) INR Home CoaguChek (no units) Date Value 02/02/2023 6.0 01/08/2023 3.7 12/17/2022 3.4 Estimated Creatinine Clearance (based on SCr of 1.4 mg/dL (H)) Female: 35.2 mL/min (A) Male: 44.2 mL/min (A) ALLERGIES No Known Allergies Indication for Warfarin: Anticoagulation Episode Summary Current INR goal: 2.5-3.5 Assessment: INR result of 6.0 is SUPRAtherapeutic due to: Decreased vitamin k intake, but without any other obvious cause. Plan: Current Warfarin Dosing As of 02/03/2023 Full warfarin instructions: 02/03: Hold Called and spoke to patient/caregiver Advised patient to hold until next INR - patient held dose yesterday, will hold today, then check INR tomorrow. Next INR check due on 02/04/2023 Patient verbalizes understanding of the plan. Husam Chilel RPh Clinical Pharmacist, Pharmacy Anticoagulation Clinic Pharmacy Anticoagulation Clinic Pager: [phone]. documented in this encounter [facility] 01-31-2023 Note [facility] 01-27-2023 Note [facility] 01-27-2023 Note [facility] 01-27-2023 History of Presen t illness Narrative Virtualist Distance Health Note (CDM/TCM//CC HC/H@HCC escalations) Gagandeep Duarte has consented to this telephone encounter. Persons Present: patient and patient's spouse/significant other Triage source: [facility] Home Care provider escalation Was patient downgraded (i.e. disposition other than go to the ED was advised)? No Contacted by phone, [employer], [employer], [employer], [employer], other: phone 1:04 PM History of present illness: He was in for SOB he cant breath well missed appointment did not feel he could drive He is in [place] SpO2 bouces all over Not on O2 88-73 Reading 91 on 's finger I feel absolutely lousy Weaked headache Ache all over States cant walk very far SOB still SOB at rest feels he needs ED [employer] [address] did not feel he should drive there Past medical history, past surgical history, family history and social history reviewed and updated as indicated in EMR. REVIEW OF SYSTEMS: Review of Systems No vomit nausea abdominal VITAL SIGNS: (if available) There were no vitals taken for this visit. Physical Exam (if video visit was performed) Physical Exam Sounds mildly SOB on phone Assessment/Plan: ASSESSMENT/PLAN: 1. Chronic combined systolic and diastolic congestive heart failure (HCC) - ICD9: 428.42, 428.0, ICD10: I50.42 (primary diagnosis) 2. Hypoxemia - ICD9: 799.02, ICD10: R09.02 Pulse Ox 88 on RA at rest SOB and MCDONALD Advised 911 to hospital states will call 911 patient agrees David Miles Disposition: Patient instructed to go to the ED A total of 12 minutes was spent providing medical care using telemedicine. Signed in as Primary Virtualist, Secondary Virtualist, or [facility] [place] Telehealth provider: Primary SIGNATURE: David Miles MD PATIENT NAME: Gagandeep Andradehoward DATE: January 27, [address] encounter [facility] 01-27-2023 History of Presen t illness Narrative CD Telephonic Outreach Provider Action/FYI: Routed and Pages Virtual Provider Dr. Braden Ferrer Call from Pt's who noted concern, Pt was seen in [place] [facility] 2 days ago for Sob, CXR completed, she noted he had fluid in bases of lungs, Denies Sob, No respiratory distress, while on phone Home BP 116/68, P 57, Pulse Oximeter 89%-93 , P 67 noted he is not eating well, is taking fluids, weaker then the past couple Contacted for: Routine Telephonic Outreach Contact made with patient: Yes Patient identified by name and date of . Discussed care with spouse Are you experiencing any new or worsening symptoms you need to talk about today? Yes Based on crimp setter, the following disposition is advised: Sent to virtualist. Makayla Maldonado RN January 27, 2023 12:46 PM documented in this encounter [facility] 01-25-2023 Note [facility] 01-24-2023 Miscellaneous Notes Called and spoke with the patient. Patient reports increased sob x 7 days. States that it is worse at night. Denies any weight gain or edema. Has an appointment with Pulmonology 01/27/23. Patient instructed to be seen at urgent care or ER if symptoms become worse. Yakelin Mckay RN Called and left detailed message asking for update on symptoms. When patient calls back please ask: Has the shortness of breath gotten worse or stayed the same? Has he noticed any weight gain? Ask what time today would be good for a return call. This nurse will return call today if the patient does call back. Yakelin Mckay RN documented in this encounter [facility] 01-13-2023 Miscellaneous Notes Called and spoke with the patient. Patient asking what rare LIVERY CAR DRIVER means in latest Pacemaker check. Answered questions and patient denies any other questions at this time. Yakelin Mckay RN Patient seen today by PCP, Patient asking for clarification on recent Pacemaker results. Please call patient [phone] documented in this encounter [facility] 01-13-2023 Note [facility] 01-13-2023 Instructions Neeta Bowman APRN.CNP - 01/13/2023 10:46 AM EDT Start taking your torsemide in the morning documented in this encounter [facility] 01-13-2023 History of Presen t illness Narrative CC: Patient presents with: Fatigue: Increased fatigue, review results HPI Gagandeep Duarte is a 77 year old adult who presents today for increased fatigue. Also wanting to discuss pacemaker interrogation results. Unable to fully educate patient as he wanted to know what rare LIVERY CAR DRIVER meant. Discussed the importance of discussing this with cardiology as they were the ones interpreting this. Telephone encounter started to have cardiology call patient do discuss the results further. Has noticed in the last few months he has had very low energy. Will sleep 10-12 hours a night and still need a couple hours of napping during the day. Denies any recent infection, edema, shortness of breath, chest pressure, fever, cough, wheezing or any other concerns. Does report he takes his torsemide before bed with all of his other medications and is up multiple times during the night urinating and unable to always fall back asleep. Is on coumadin but denies any abnormal bleeding, blood in stool, dark sticky stools, or blood in urine. HTN and HLD: Mr. Duarte indicates that he is feeling well and denies any symptoms referable to elevated blood pressure. Specifically denies headache, chest pain, palpitations, dyspnea, and peripheral edema. Patient denies any side effects of his medication(s) and is compliant with their regimen. He does check BP's away from this office with average or systolic reported in 110s range. Last 3 Encounter BP Readings: Date: BP: 01/13/2023 112/68 11/22/2022 122/56 10/21/2022 102/62 REVIEW OF SYSTEMS General: no fevers, no chills, no night sweats, no recurrent infections, no change in appetite, and no significant changes in weight Respiratory: no cough, no wheezing, no shortness of breath, no hemoptysis Cardiovascular: no chest pain, no chest pressure, no palpitations, and no swelling GI: No nausea, vomiting, or diarrhea : No history of dysuria, frequency or incontinence Endocrine: Is always thirsty but denies any increase in hunger or urination. Neurologic: No headache, weakness, numbness, tingling, dizziness, memory loss, syncope. PAST MEDICAL HISTORY Diagnosis Date Anxiety Anxiety and depression 12/26/2014 At risk for stroke Back pain Bradycardia CHF (congestive heart failure) ([facility]) Dyspepsia Fracture History of sick sinus syndrome Hyperlipidemia 05/03/2015 Hypertension 12/26/2014 Hypogonadism in male Inguinal hernia Mitral valve regurgitation [place] valve replacement 1989 Panic attacks Permanent atrial fibrillation (HCC) atrial fibrillation diagnosed 2008, permanent by 2016 Pneumonia As a child Posterior vitreous detachment - Both Eyes 07/26/2014 Presence of cardiac pacemaker Medtronic dual-chamber pacemaker implanted 11/2016; indication: symptomatic sick sinus syndrome Pulmonary fibrosis (HCC) S/P MVR (mitral valve replacement) 12/02/[address] patient has a [place]o valve in 1989. On coumadin since. He needs to be in the 2.5 to 3.5. He has been on 2.5 on all days except Friday and sat of 3.0. 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 Shoulder impingement 01/06/2014 Verruca vulgaris PAST SURGICAL HISTORY Procedure Laterality Date BACK SURGERY HX 2007 lower back surgery BASIC PACEMAKER DUAL CHAMBER Left 11/11/2016 Medtronic dual-chamber pacemaker; indication: symptomatic sick sinus syndrome CARDIAC CATH 04/28/2020 moderate 60% disease of LAD; moderate LV systolic dysfunction ECHO TRANSESOPHAG CONGEN PROBE [facility] IMGNG I&R 05/18/2020 see report; notable for moderate LV systolic dysfxn, LVEF 35% ECHOCARDIOGRAM 01/31/2020 mild LV systolic dysfxn; LVEF 51% EPS: VT ABLATION 09/22/2017 PVC RF catheter ablation at aortomitral continuity and junction of L/R coronary cusps HEART VALVE REPLACEMENT 1989 MVR (mechanical SJM) PHARMACOLOGIC NUCLEAR STRESS 03/06/2020 no ischemia; small region of scar in RCA territory; mild to moderate LV systolic dysfunction, LVEF 43% RPR 1ST INGUN HRNA AGE 3 YRS/> REDUCIBLE 2011 Hernia repair, inguinal ALLERGIES Patient has no known allergies. MEDICATIONS torsemide (DEMADEX) 20 mg tablet^Take 1 tablet by mouth once daily^Disp: 90 tablet^Rfl: 3 lisinopril (ZESTRIL) 10 mg tablet^Take 1 tablet by mouth once daily.^Disp: 90 tablet^Rfl: 3 warfarin (COUMADIN) 2.5 mg tablet^Take 1 tablet by mouth once daily. Take as directed by the Coumadin Clinic^Disp: 30 tablet^Rfl: 5 PARoxetine (PAXIL) 20 mg tablet^Take 1 tablet by mouth once daily.^Disp: 30 tablet^Rfl: 5 atorvastatin (LIPITOR) 20 mg tablet^Take 1 tablet by mouth once daily.^Disp: 90 tablet^Rfl: 2 carvedilol (COREG) 3.125 mg tablet^Take 1 tablet by mouth twice daily.^Disp: 180 tablet^Rfl: 3 warfarin (COUMADIN) 3 mg tablet^Take as directed by [facility] Anticoagulation Clinic.^Disp: 30 tablet^Rfl: 5 potassium chloride (K-TAB) 10 mEq tablet^Take 1 tablet by mouth daily with breakfast.^Disp: 90 tablet^Rfl: 3 FAMILY HISTORY Problem Relation Age of Onset Diabetes Mother Diabetes Maternal Grandmother Diabetes Maternal Grandfather Social History Tobacco Use Smoking status: Never Smokeless tobacco: Never Vaping Use Vaping Use: Never used Substance Use Topics Alcohol use: No Drug use: No PHYSICAL EXAM BP 112/68 Pulse (!) 55 Temp 36.1 C (97 F) (Temporal) Resp 16 Wt 82.6 kg (182 lb) SpO2 98% BMI 26.11 kg/m General Appearance: well appearing, in no acute distress, alert Eyes: conjunctiva pink and moist, no icterus, sclera white, non-injected Neck: Thyroid normal size and symmetric without palpable nodules, Neck supple, No adenopathy Lymph nodes: No cervical lymphadenopathy and No supraclavicular lymphadenopathy Lungs: Lungs clear to auscultation. No wheezing, rhonchi, rales. Heart: RRR without murmur, gallop, or rubs. No ectopy Neurological: Gait normal. speech normal, mental status intact Health maintenance reviewed with patient: BONE DENSITY Never done DTAP,TDAP,TD(1 - Tdap) due on 07/06/2020 ADVANCE DIRECTIVE DISCUSSION Never done ANNUAL PCP TEAM CHRONIC DISEASE VISIT due on 11/23/2023 DIABETES SCREEN due on 03/07/2025 INFLUENZA Completed SHINGRIX VACCINE Completed COVID-19 VACCINE Completed PNEUMOCOCCAL: 65+ Completed DATA REVIEWED: Most recent labs and imaging results. ASSESSMENT/PLAN: 1. Other fatigue - ICD9: 780.79, ICD10: R53.83 (primary diagnosis) - possible result of taking torsemide before bed disrupting his sleep pattern, but has not had full lab work completed in quite a while so will review for other cause as well. Also thirst is mainly in the Am and possible result of night time diuretic as well. - start taking torsemide in the AM. - CBC + DIFF - COMP METABOLIC PANEL - TSH BLD - VITAMIN B12 BLOOD - HGB A1C - follow up in 4 weeks. 2. Increased thirst - ICD9: 783.5, ICD10: R63.1 - as above - HGB A1C 3. Abnormal glucose - ICD9: 790.29, ICD10: R73.09 - HGB A1C 4. Mixed hyperlipidemia - ICD9: 272.2, ICD10: E78.2 - control determined upon pending lab results. - Continue current medications - Counseled on healthy diet and regular exercise - LIPID PANEL BASIC - COMP METABOLIC PANEL 5. Essential hypertension - ICD9: 401.9, ICD10: I10 - Controlled - Continue current medications - Recommend home blood pressure monitoring, to bring results to next visit - Encouraged sodium restriction, DASH or Mediterranean diet - Recommend regular aerobic exercise - CBC + DIFF - COMP METABOLIC PANEL Prescription instructions reviewed with patient as applicable. Potential red flag symptoms discussed with the patient. Reviewed appropriate action plan to take if red flag symptoms occur. Patient agreeable to treatment plan. Neeta Bowman APRN.CNP documented in this encounter [facility] 01-09-2023 Miscellaneous Notes Pharmacy electronically requests the following refill(s) Requested Prescriptions Pending Prescriptions Disp Refills torsemide (DEMADEX) 20 mg tablet [Pharmacy Med Name: Torsemide 20 MG Oral Tablet] 90 tablet 3 Sig: Take 1 tablet by mouth once daily Yakelin Mckay RN documented in this encounter [facility] 01-08-[address] [facility] Ambulatory Pharmacy Anticoagulation Clinic Anticoagulation Episode Summary Anticoagulation Care Providers Provider Role Specialty Phone number Macey Lee MD Responsible Internal Medicine [phone] Gagandeep Marion Duarte is a 77 year old year old male patient being evaluated today for a Telemanagement visit. Patient is currently on the following anticoagulant(s) Warfarin. Labs PT INR (no units) Date Value 08/08/2022 2.5 08/09/2021 1.7 01/25/2021 3.4 (BioTel) INR Home CoaguChek (no units) Date Value 01/08/2023 3.7 12/17/2022 3.4 11/24/2022 2.4 Hemoglobin (g/dL) Date Value 03/07/2022 12.3 07/09/2021 12.7 Hematocrit (%) Date Value 03/07/2022 36.4 07/09/2021 39.1 Platelet Count (k/uL) Date Value 03/07/2022 139 07/09/2021 142 Creatinine (mg/dL) Date Value 03/07/2022 1.23 03/04/2022 1.22 01/19/2022 1.17 07/09/2021 1.19 07/03/2020 1.09 04/28/2020 0.94 Bilirubin, Total (mg/dL) Date Value 03/07/2022 0.6 04/28/2020 1.2 ALT (U/L) Date Value 03/07/2022 10 04/28/2020 13 AST (U/L) Date Value 03/07/2022 26 04/28/2020 28 CrCl cannot be calculated (Patient's most recent lab result is older than the maximum 180 days allowed.). ALLERGIES No Known Allergies Indication for Warfarin: S/p mvr (mitral valve replacement) Anticoagulant long-term use Anticoagulation Episode Summary Current INR goal: 2.5-3.5 Assessment: INR result of 3.7 is SUPRAtherapeutic due to: Decreased vitamin k intake Plan: Current Warfarin Dosing As of 01/07/2023 Full warfarin instructions: 2.5 mg every day Called and spoke to patient/caregiver Advised patient to continue current weekly dose as noted above - but he will have a little more vitamin K moving forward in his diet. He said he has to remind himself. Next home INR check scheduled on 01/22/2023 Patient verbalizes understanding of the plan. Patient denies need for refills. Mireya Madsen RPh Clinical Pharmacist, Pharmacy Anticoagulation Clinic Pharmacy Anticoagulation Clinic Pager: [phone]. Gagandeep Duarte was called and reminded to test INR today or as soon as possible. Flavia Whitmore RPh documented in this encounter [facility] 12-17-[address] [facility] Ambulatory Pharmacy Anticoagulation Clinic Anticoagulation Episode Summary Anticoagulation Care Providers Provider Role Specialty Phone number Macey Lee MD Responsible Internal Medicine [phone] Gagandeep Duarte is a 77 year old year old male patient being evaluated today for a Telemanagement visit. Patient is currently on the following anticoagulant(s) Warfarin. Labs PT INR (no units) Date Value 08/08/2022 2.5 08/09/2021 1.7 01/25/2021 3.4 (BioTel) INR Home CoaguChek (no units) Date Value 12/17/2022 3.4 11/24/2022 2.4 11/07/2022 4.0 Hemoglobin (g/dL) Date Value 03/07/2022 12.3 07/09/2021 12.7 Hematocrit (%) Date Value 03/07/2022 36.4 07/09/2021 39.1 Platelet Count (k/uL) Date Value 03/07/2022 139 07/09/2021 142 Creatinine (mg/dL) Date Value 03/07/2022 1.23 03/04/2022 1.22 01/19/2022 1.17 07/09/2021 1.19 07/03/2020 1.09 04/28/2020 0.94 Bilirubin, Total (mg/dL) Date Value 03/07/2022 0.6 04/28/2020 1.2 ALT (U/L) Date Value 03/07/2022 10 04/28/2020 13 AST (U/L) Date Value 03/07/2022 26 04/28/2020 28 CrCl cannot be calculated (Patient's most recent lab result is older than the maximum 180 days allowed.). ALLERGIES No Known Allergies Indication for Warfarin: Anticoagulation Episode Summary Current INR goal: 2.5-3.5 Assessment: INR result of 3.4 is therapeutic Plan: Current Warfarin Dosing As of 12/17/2022 Full warfarin instructions: 2.5 mg every day Called and spoke to patient/caregiver Advised patient to continue current weekly dose as noted above Next home INR check scheduled on 12/31/2022 Patient verbalizes understanding of the plan. Flavia Whitmore RPh Clinical Pharmacist, Pharmacy Anticoagulation Clinic Pharmacy Anticoagulation Clinic Pager: [phone]. documented in this encounter [facility] 12-16-2022 Miscellaneous Notes Gagandeep Duarte was called and reminded to test INR today or as soon as possible. Patient was due to test INR today. Will continue to monitor for results. documented in this encounter [facility] 11-25-[address] [facility] Ambulatory Pharmacy Anticoagulation Clinic Anticoagulation Episode Summary Anticoagulation Care Providers Provider Role Specialty Phone number Macey Lee MD [facility] Internal Medicine [phone] Gagandeep Duarte is a 77 year old year old male patient being evaluated today for a Telemanagement visit. Patient is currently on the following anticoagulant(s) Warfarin. Labs PT INR (no units) Date Value 08/08/2022 2.5 08/09/2021 1.7 01/25/2021 3.4 (BioTel) INR Home CoaguChek (no units) Date Value 11/24/2022 2.4 11/07/2022 4.0 10/17/2022 3.5 CrCl cannot be calculated (Patient's most recent lab result is older than the maximum 180 days allowed.). ALLERGIES No Known Allergies Indication for Warfarin: Anticoagulation Episode Summary Current INR goal: 2.5-3.5 Assessment: INR result of 2.4 is SUBtherapeutic due to: unknown cause - did not speak to patient Plan: Current Warfarin Dosing As of 11/25/2022 Full warfarin instructions: 11/25: 3 mg; Otherwise 2.5 mg every day Left voice message Advised patient to increase dose for 1 day only then resume weekly regimen Next INR check due on 12/09/2022 Patient instructed to call [facility] at [phone] with any questions or concerns. Husam Chilel RPh Clinical Pharmacist, Pharmacy Anticoagulation Clinic Pharmacy Anticoagulation Clinic Pager: [phone] documented in this encounter [facility] 11-22-2022 Note [facility] 11-22-2022 History of Presen t illness Narrative Reason for Visit Patient presents with: F/U HTN 3 Month Gagandeep Marion Haim is a 77 year old male who presents here today for Above Complaints.. Health Maintenance DTAP,TDAP,TD(1 - Tdap) ADVANCE DIRECTIVE DISCUSSION SHINGRIX VACCINE(3 of 3) HPI Pulm Fib: Patient completed At [facility] his pulmonary rehab for ILD, and pulm fibrosis. The rehab helped him a little bit, but he has not been feeling any energy or enthusiasm. Patient notes it is both lack of energy and motivation. He was interested in joining a trail medication for fibrosis. Joined the study but was removed as he did not have a def dx He now wonders if he has the disease. Does not not to have any more tests etc We together reviewed the ct of the lungs and that he def has this and he should see Dr cruz before he makes any decisions as I do think he has the disease He has not been taking lisinopril as he ran out and says the clinic could not get its act together now got the pill but bp is good. Will hold till bp goes up He is a little depressed about his disease. Thinks paxil is not working but is not ready yet to increase his Paxil to 40 mg. No problem-specific Assessment & Plan notes found for this encounter. PAST MEDICAL HISTORY Diagnosis Date Anxiety Anxiety and depression 12/26/2014 At risk for stroke Back pain Bradycardia CHF (congestive heart failure) ([facility]) Dyspepsia Fracture History of sick sinus syndrome Hyperlipidemia 05/03/2015 Hypertension 12/26/2014 Hypogonadism in male Inguinal hernia Mitral valve regurgitation [facility] [place] valve replacement 1989 Panic attacks Permanent atrial fibrillation (HCC) atrial fibrillation diagnosed 2008, permanent by 2016 Pneumonia As a child Posterior vitreous detachment - Both Eyes 07/26/2014 Presence of cardiac pacemaker Medtronic dual-chamber pacemaker implanted 11/2016; indication: symptomatic sick sinus syndrome Pulmonary fibrosis (HCC) S/P MVR (mitral valve replacement) 12/02/[address] patient has a [place] valve in 1989. On coumadin since. He needs to be in the 2.5 to 3.5. He has been on 2.5 on all days except Friday and sat of 3.0. 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 Shoulder impingement 01/06/2014 Verruca vulgaris PAST SURGICAL HISTORY Procedure Laterality Date BACK SURGERY HX 2007 lower back surgery BASIC PACEMAKER DUAL CHAMBER Left 11/11/2016 Medtronic dual-chamber pacemaker; indication: symptomatic sick sinus syndrome CARDIAC CATH 04/28/2020 moderate 60% disease of LAD; moderate LV systolic dysfunction [facility] 05/18/2020 see report; notable for moderate LV systolic dysfxn, LVEF 35% ECHOCARDIOGRAM 01/31/2020 mild LV systolic dysfxn; LVEF 51% EPS: VT ABLATION 09/22/2017 PVC RF catheter ablation at aortomitral continuity and junction of L/R coronary cusps HEART VALVE REPLACEMENT 1989 MVR (mechanical SJM) PHARMACOLOGIC NUCLEAR STRESS 03/06/2020 no ischemia; small region of scar in RCA territory; mild to moderate LV systolic dysfunction, LVEF 43% RPR 1ST INGUN HRNA AGE 3 YRS/> REDUCIBLE 2012 Hernia repair, inguinal FAMILY HISTORY Problem Relation Age of Onset Diabetes Mother Diabetes Maternal Grandmother Diabetes Maternal Grandfather Social History Tobacco Use Smoking status: Never Smokeless tobacco: Never Vaping Use Vaping Use: Never used Substance Use Topics Alcohol use: No Drug use: No Past medical history, appointments, medications, allergies reviewed. Pertinent Lab/Diagnostic Studies are reviewed and discussed today Current Outpatient Medications: lisinopril (ZESTRIL) 10 mg tablet warfarin (COUMADIN) 2.5 mg tablet PARoxetine (PAXIL) 20 mg tablet atorvastatin (LIPITOR) 20 mg tablet carvedilol (COREG) 3.125 mg tablet warfarin (COUMADIN) 3 mg tablet potassium chloride (K-TAB) 10 mEq tablet torsemide (DEMADEX) 20 mg tablet Current Facility-Administered Medications: perflutren lipid microspheres 1.3 mL in NaCl (PF) 0.9% 10 mL injection (DEFINITY) sodium chloride 0.9 % (flush) 10 mL (BD POSIFLUSH) Review of Systems CONSTITUTIONAL: No fevers, chills night sweats, unintended weight loss CARDIOVASCULAR: No chest pain, dyspnea, palpitations, orthopnea, PND, ankle edema. PULM: No dyspnea, unexplained cough. GI: No dysphagia/odynophagia, problematic reflux, constipation, diarrhea, changes in stool habits, hematochezia, melena. : No new urinary complaints, including dysuria, gross hematuria or pyuria. NEURO: No new balance problems, peripheral weakness/paresthesias or numbness of concern. Physical Exam BP 122/56 (BP Site: Left Arm, BP Position: Sitting, BP Cuff Size: Large Adult) Pulse (!) 58 Temp 37.2 C (99 F) Resp 12 Ht 177.8 cm (5' 10 ) Wt 81.6 kg (180 lb) SpO2 100% BMI 25.83 kg/m General appearance: Well appearing, alert, in no acute distress, well nourished. Skin: Skin color, texture, turgor normal, no suspicious rashes or lesions Head: Normocephalic, no masses, lesions, tenderness or abnormalities Eyes: Anicteric sclera. Pupils are equally round and reactive to light. Extraocular movements are intact. Lungs: Lungs clear to auscultation. No wheezing, rhonchi, rales Heart: RRR without murmur, gallop, or rubs. Extremities: No deformities, edema, skin discoloration, clubbing or cyanosis. Good capillary refill. ASSESSMENT/PLAN: 1. Pulmonary fibrosis (HCC) - ICD9: 515, ICD10: J84.10 (primary diagnosis) Well controlled - CONSULT TO PULM/CRITICAL CARE 2. Anxiety and depression - ICD9: 300.00, 311, ICD10: F41.9, F32.A Not Controlled on the paxil. Not yet willing to try the 40mgs 3. Essential hypertension - ICD9: 401.9, ICD10: I10 Hold lisinopril until bp is too high. - Recommended regular aerobic exercise. - Recommend home blood pressure monitoring, to bring results in on next visit - Goal of BP <130/80 Macey Lee MD documented in this encounter [facility] 11-21-2022 Miscellaneous Notes Pt was due to test INR today. No result received. Will continue to monitor for result. Angela Arguello RPh.' documented in this encounter [facility] 11-11-2022 Miscellaneous Notes Patient's request for medication is as follows: Requested Prescriptions Pending Prescriptions Disp Refills lisinopril (ZESTRIL) 10 mg tablet 90 tablet 3 Sig: Take 1 tablet by mouth once daily. Last visit 08/2022 Prescription(s) as above. Please process accordingly. Yanet Peña RN documented in this encounter [facility] 11-04-2022 Miscellaneous Notes Patient has been identified by name and date of : No Patient phones for refill(s): Requested Prescriptions Pending Prescriptions Disp Refills warfarin (COUMADIN) 2.5 mg tablet 30 tablet 5 Sig: Take 1 tablet by mouth once daily. Take as directed by the [facility] Date of last office visit in primary care: 10/14/22 Last 2 Encounter Wt Readings: Date: Wt: 10/21/2022 80.4 kg (177 lb 4 oz) 10/14/2022 79.8 kg (176 lb) Previous labs/tests for medication: Coumadin: PT INR (no units) Date Value 08/08/2022 2.5 INR Home CoaguChek (no units) Date Value 10/17/2022 3.5 Please advise. Thank you. Flavia Colin LPN documented in this encounter [facility] 10-22-2022 Miscellaneous Notes Called and left a detailed voicemail notifying patient of providers message. Hospital phone number was left in case patient had any questions. Fara Arshad RN Us showed a small lesion that could be a hematoma from fall. Nothing else was seen. Repeat in 6 months as needed. .rga report has been placed on pcp's desk The us report is not in scanned documents. Or imaging results , Please get me details on it. Regards, Macey Lee MD Patient calls to ask if provider has got a chance to look at US results of left thigh from 10/14/2022 done by [facility]. Ordered by Neeta Bowman who is out this week. Sending to Dr. Lee for review. Please review and advise, Barb Aleman RN documented in this encounter [facility] 10-21-2022 Note [facility] 10-21-2022 History and physical note SUBSEQUENT VISIT 77 year old never smoker being assessed for screening in IRB 22-608: A Randomized, Double-blind, Placebo-controlled, Phase 3 Study of the Efficacy and Safety of Inhaled Treprostinil in Subjects with Idiopathic Pulmonary Fibrosis. He carries clinico-radiographic diagnosis of IPF and is currently not on any anti-fibrotic treatments due to prior intolerance to Pirfenidone. Today he has MRC grade 2 dyspnea with occasional cough but denies any hemoptysis, pleuritic chest pain or wheezing. He has not had any episodes of lower respiratory infections in the past year. He walks and works out at the gym for exercise and is not currently on supplemental O2. He has no exertional palpitations or near syncope of LE edema and has no concerns for associated pulmonary hypertension. REVIEW OF SYSTEMS GENERAL: No weight loss HEENT: Negative for frequent or significant headaches, No changes in hearing or vision, no nose bleeds or other nasal problems NECK: No neck swelling RESPIRATORY: Positive for dyspnea, cough CARDIOVASCULAR: No chest pain, leg swelling GASTROINTESTINAL: No nausea, vomiting MUSCULOSKELETAL: Negative for joint pain or swelling, back pain or muscle pain NEUROLOGIC: Negative for focal numbness or weakness, headaches and dizziness or syncope. SKIN: Negative for lesions, rash, and itching PSYCHIATRIC: Negative for sleep disturbance, mood disorder and recent psychosocial stressors. HEMATOLOGIC/LYMPHATIC/IMMUNOLOGI C: No swollen nodes ENDOCRINE: No goiter The remainder of the complete systems was benign PHYSICAL EXAMINATION: General appearance: Well appearing, alert, in no acute distress, well-hydrated, well nourished. Skin: Skin color, texture, turgor normal, no suspicious rashes or lesions Head: Normocephalic, no masses, lesions, tenderness or abnormalities Eyes: Anicteric sclera. Pupils are equally round and reactive to light. Extraocular movements are intact. Oropharynx: Lips, mucosa, and tongue normal, teeth and gums normal, oropharynx normal Neck: Supple, no adenopathy; no bruits Lungs: Bibasilar rales to auscultation. No wheezing, rhonchi, rales. Heart: RRR without murmur, gallop, or rubs. No ectopy Abdomen: Abdomen soft, non-tender. Bowel sounds normal. No masses, organomegaly Extremities: No deformities, edema, skin discoloration, clubbing or cyanosis. Good capillary refill. Peripheral pulses: Normal IMPRESSION & PLAN He has IPF based on clinico-radiographic features and currently has mild to moderate disease based on PFTs and is off all anti-fibrotic treatments and has no concerns for pulmonary hypertension. He is interested in participating in this clinical trial and will continue with his ongoing screening visit. He will return to see us per study protocol. Geovanny Ray MD documented in this encounter [facility] 10-21-2022 Note [facility] 10-21-2022 History of Presen t illness Narrative IRB [id number]: A Randomized, Double-blind, Placebo-controlled, Phase 3 Study of the Efficacy and Safety of Inhaled Treprostinil in Subjects with Idiopathic Pulmonary Fibrosis Gagandeep Duarte is a 77 y.o. non-, non-Jordanian, white male (at ), never-smoker, here today for screening visit for above-mentioned study. Informed consent for IRB 22-608 (V1 dated 03/08/2022, and IRB approved 03/18/2022) A Randomized, Double-blind, Placebo-controlled, Phase 3 Study of the Efficacy and Safety of Inhaled Treprostinil in Subjects with Idiopathic Pulmonary Fibrosis, was obtained and signed by Gagandeep Duarte today after lengthy discussion, and after all questions were answered to patient satisfaction. It is my opinion that he understands the risks, benefits, alternatives, and procedures involved and I countersigned as the person obtaining consent. Signatures obtained @ 09:12, prior to any study procedures. A copy of the signed consent was given to Gagandeep Duarte Optional participation in Biomarker Research collection was also obtained by Gagandeep Duarte in same consent document Optional participation in Whole Genomic Sequencing was also obtained by Gagandeep Duarte in same consent document All inclusion/exclusion criteria that are evaluable at this time have been reviewed by Dr. Ray, and Gagandeep Duarte is assessed as appropriate and eligible to continue the screening process. All medical history, current medications, and other pertinent information relating to this study visit have been attained by direct interview with participant today. Body Measurements: Height= 179.9cm Weight= 80.4 kg Sitting blood pressure and heart rate after 5 mins at rest: 102/62 - 52 (paced) Respiratory Rate: 16 Temp: 97.1f (temporal) Resting O2 sat: 97 (on RA) after 5 mins at rest Lungs present with very slight posterior basilar inspiratory rales, and slight Right apical anterior inspiratory squeak. Date of IPF diagnosis: December 2021; presently in stable condition without progression, per Dr. Ray. Does subject have a diagnosis of obstructive sleep apnea (MOUNA): No If yes, is subject being treated for MOUNA: N/A If yes, specify treatment: N/A If other, specify: N/A Smoking history: Never-Smoker. Packs/day: Years: Pack years: Types: Cigarettes Quit date: Years since quitting: Smokeless tobacco: Never Quit date: N/A Alcohol use: Non-drinker Is subject currently receiving chronic corticosteroids for IPF: No Current medical history/baseline conditions: (All conditions are adequately treated at time of screening.) 1. Anxiety (dx: ??/??/2009) 2. CHF (congestive heart failure) (dx: ??/??/2009) 3. Dyspepsia (dx: ??/??/ ) 4. History of sick sinus syndrome (dx:?/?/2016) 5. Hyperlipidemia (dx: ??/??/1999) 6. General Arthralgias (dx: ??/??/1999) 7. Inguinal hernia (dx ?/??/2011) 8. Hypertension (dx: ??/??/2009) 9. Mitral valve regurgitation (dx ?/?/1989) 10. General Myalgias (dx: ??/??/1999) 11. Permanent atrial fibrillation (dx: ?/?/2016) 12. Posterior vitreous detachment (dx: 07/26/2014) 13. Presence of cardiac pacemaker (??) 14. 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 Shoulder impingement (dx: 01/06/2014) For complete H & P, please see Dr. Ray's note. Concomitant medications: Warfarin 2.5mg PO for anticoagulation prophylaxis once daily (as directed) Start date: ??/?? Stop date: ongoing Atorvastatin 20mg PO for Hyperlipidemia once daily Start date: ? Stop date: ongoing Carvedilol 3.125mg PO for CHF. Take 1 caps twice daily Start date: ??/?? Stop date: ongoing Torsemide 20 mg PO capsule for CHF. Take once daily Start date: ??/? Stop date: ongoing Potassium Chloride 10mEq PO tablet for nutritional supplementation once daily Start date: ? Stop date: ongoing Lisinopril 10mg capsule for Hypertension: Take 1 cap PO daily Start date: ? Stop date: ongoing Paroxetine 20mg capsule for Anxiety: Take 1 cap PO daily Start date: ??/?? Stop date: ongoing Review of concomitant medications agrees with study participation Is patient currently using supplemental O2 at home? No Fasting Hematology, Chemistry, Urinalysis, tests, etc., drawn per [facility] and study protocol, as warranted-Yes; @ 10:20 and shipped per study and [facility] protocols. PFT's performed at visit today (greatest values reported) Pre BD FEV1= 2.10 (70.5%) Pre BD FVC= 2.68 (66.5%) FEV1/FVC= 0.78 DLco (uncorrected)= Not at today's visit 12 lead ECG performed? Not at today's visit HR= QRS= WV= QT= QTcF= Significant findings: HRCT date: Done today, and to be sent for assessment Background therapy used for randomization: No background therapy (Previous discontinuation form Pirfenidone due to tolerability) Is subject a woman of child-bearing potential? No; male Is partner of male participant of child-bearing potential? No Has subject received investigational products or other treatments for IPF? No . Upon assessment and adjudication of study data gathered, it will be determined if Gagandeep Duarte is eligible for randomization visit. Homer Garcia Online Advertising Manager documented in this encounter [facility] 10-21-2022 Note [facility] 10-21-2022 History of Presen t illness Narrative IRB 22-608: A Randomized, Double-blind, Placebo-controlled, Phase 3 Study of the Efficacy and Safety of Inhaled Treprostinil in Subjects with Idiopathic Pulmonary Fibrosis Gagandeep Duarte is a 77 y.o. non-, non-Jordanian, white male (at ), never-smoker, here today for screening visit for above-mentioned study. Informed consent for IRB 22-608 (V1 dated 03/08/2022, and IRB approved 03/18/2022) A Randomized, Double-blind, Placebo-controlled, Phase 3 Study of the Efficacy and Safety of Inhaled Treprostinil in Subjects with Idiopathic Pulmonary Fibrosis, was obtained and signed by Gagandeep Duarte today after lengthy discussion, and after all questions were answered to patient satisfaction. It is my opinion that he understands the risks, benefits, alternatives, and procedures involved and I countersigned as the person obtaining consent. Signatures obtained @ 09:12, prior to any study procedures. A copy of the signed consent was given to Gagandeep Duarte Optional participation in Biomarker Research collection was also obtained by Gagandeep Duarte in same consent document Optional participation in Whole Genomic Sequencing was also obtained by Gagandeep Duarte in same consent document All inclusion/exclusion criteria that are evaluable at this time have been reviewed by Dr. Ray, and Gagandeep Duarte is assessed as appropriate and eligible to continue the screening process. All medical history, current medications, and other pertinent information relating to this study visit have been attained by direct interview with participant today. Body Measurements: Height= 179.9cm Weight= 80.4 kg Sitting blood pressure and heart rate after 5 mins at rest: 102/62 - 52 (paced) Respiratory Rate: 16 Temp: 97.1f (temporal) Resting O2 sat: 97 (on RA) after 5 mins at rest Lungs present with very slight posterior basilar inspiratory rales, and slight Right apical anterior inspiratory squeak. Date of IPF diagnosis: May 2022; presently in stable condition without progression, per Dr. Ray. Does subject have a diagnosis of obstructive sleep apnea (OMUNA): No If yes, is subject being treated for MOUNA: N/A If yes, specify treatment: N/A If other, specify: N/A Smoking history: Never-Smoker. Packs/day: Years: Pack years: Types: Cigarettes Quit date: Years since quitting: Smokeless tobacco: Never Quit date: N/A Alcohol use: Non-drinker Is subject currently receiving chronic corticosteroids for IPF: No Current medical history/baseline conditions: (All conditions are adequately treated at time of screening.) 1. Anxiety (dx: ??/??/2009) 2. CHF (congestive heart failure) (dx: ??/??/2009) 3. Dyspepsia (dx: ??/??/ ) 4. History of sick sinus syndrome (dx:?/?) 5. Hyperlipidemia (dx: ??/??/1999) 6. General Arthralgias (dx: ??/??/1999) 7. Inguinal hernia (dx ?/??) 8. Hypertension (dx: ??/??/2009) 9. Mitral valve regurgitation (dx ?/?/1989) 10. General Myalgias (dx: ??/??/1999) 11. Permanent atrial fibrillation (dx: ?/?) 12. Posterior vitreous detachment (dx: 07/26/2014) 13. Presence of cardiac pacemaker (??) 14. 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 Shoulder impingement (dx: 01/06/2014) For complete H & P, please see Dr. Ray's note. Concomitant medications: Warfarin 2.5mg PO for anticoagulation prophylaxis once daily (as directed) Start date: ??/?? Stop date: ongoing Atorvastatin 20mg PO for Hyperlipidemia once daily Start date: ? Stop date: ongoing Carvedilol 3.125mg PO for CHF. Take 1 caps twice daily Start date: ??/?? Stop date: ongoing Torsemide 20 mg PO capsule for CHF. Take once daily Start date: ??/?? Stop date: ongoing Potassium Chloride 10mEq PO tablet for nutritional supplementation once daily Start date: ? Stop date: ongoing Lisinopril 10mg capsule for Hypertension: Take 1 cap PO daily Start date: ? Stop date: ongoing Paroxetine 20mg capsule for Anxiety: Take 1 cap PO daily Start date: ??/? Stop date: ongoing Review of concomitant medications agrees with study participation Is patient currently using supplemental O2 at home? No Fasting Hematology, Chemistry, Urinalysis, tests, etc., drawn per [facility] and study protocol, as warranted-Yes; @ 10:20 and shipped per study and [facility] protocols. PFT's performed at visit today (greatest values reported) Pre BD FEV1= 2.10 (70.5%) Pre BD FVC= 2.68 (66.5%) FEV1/FVC= 0.78 DLco (uncorrected)= Not at today's visit 12 lead ECG performed? Not at today's visit HR= QRS= WV= QT= QTcF= Significant findings: HRCT date: Done today, and to be sent for assessment Background therapy used for randomization: No background therapy (Previous discontinuation form Pirfenidone due to tolerability) Is subject a woman of child-bearing potential? No; male Is partner of male participant of child-bearing potential? No Has subject received investigational products or other treatments for IPF? No . Upon assessment and adjudication of study data gathered, it will be determined if Gagandeep Duarte is eligible for randomization visit. Homer Garcia Online Advertising Manager documented in this encounter [facility] 10-21-2022 History of Presen t illness Narrative Radiology Service Progress Note PATIENT NAME: Gagandeep Duarte DATE OF SERVICE: October 21, 2022 TIME: 11:29 AM PATIENT IDENTITY VERIFICATION COMPLETED USING TWO (2) IDENTIFIERS: Name and Date of confirmed by patient verbally and Name and Date of confirmed by identification band. FALL SCREENING: Has the patient had 2 falls in the last year or 1 fall with injury or currently using an Ambulatory Assistive Device (Walker, Cane, Wheelchair, Crutches, etc.)? No PATIENT GENDER DATA: Male PATIENT RELEVANT IMPLANT DATA REVIEWED: Yes RADIOLOGY DEPARTMENT: CT; Exam(s) Completed: Chest PERIPHERAL IV DATA: Not applicable SIGNED BY: RT Dyana(R) October 21, 2022 11:29 AM documented in this encounter [facility] 10-17-[address] [facility] Ambulatory Pharmacy Anticoagulation Clinic Anticoagulation Episode Summary Anticoagulation Care Providers Provider Role Specialty Phone number Macey Lee MD Responsible Internal Medicine [phone] Gagandeep Marion Duarte is a 77 year old year old male patient being evaluated today for a Telemanagement visit. Patient is currently on the following anticoagulant(s) Warfarin. Labs PT INR (no units) Date Value 08/08/2022 2.5 08/09/2021 1.7 01/25/2021 3.4 ([employer]) INR Home CoaguChek (no units) Date Value 10/17/2022 3.5 10/08/2022 5.5 09/20/2022 2.5 Hemoglobin (g/dL) Date Value 03/07/2022 12.3 07/09/2021 12.7 Hematocrit (%) Date Value 03/07/2022 36.4 07/09/2021 39.1 Platelet Count (k/uL) Date Value 03/07/2022 139 07/09/2021 142 Creatinine (mg/dL) Date Value 03/07/2022 1.23 03/04/2022 1.22 01/19/2022 1.17 07/09/2021 1.19 07/03/2020 1.09 04/28/2020 0.94 Bilirubin, Total (mg/dL) Date Value 03/07/2022 0.6 04/28/2020 1.2 ALT (U/L) Date Value 03/07/2022 10 04/28/2020 13 AST (U/L) Date Value 03/07/2022 26 04/28/2020 28 CrCl cannot be calculated (Patient's most recent lab result is older than the maximum 180 days allowed.). ALLERGIES No Known Allergies Indication for Warfarin: S/p mvr (mitral valve replacement) Anticoagulant long-term use Anticoagulation Episode Summary Current INR goal: 2.5-3.5 Assessment: INR result of 3.5 is therapeutic after dosage reduction Plan: Current Warfarin Dosing As of 10/17/2022 Full warfarin instructions: 2.5 mg every day Left voice message and asked to call back to confirm change in dosage and retesting date Advised patient to decrease total weekly regimen Next home INR check scheduled on 10/31/2022 Maryan Berumen [facility] Clinical Pharmacist, Pharmacy Anticoagulation Clinic Pharmacy Anticoagulation Clinic Pager: [phone]. documented in this encounter [facility] 10-15-2022 Miscellaneous Notes Order for US has been faxed to [facility] central scheduling. Patient aware of same. Patient would like to have US Extremity Fluid Collection done at [facility]. Patient canceled the October 24 appointment in [place] on-line. Please advise and call patient. documented in this encounter [facility] 10-14-2022 Note [facility] 10-14-2022 Note [facility] 10-14-2022 History of Presen t illness Narrative CC: Patient presents with: Mass: Lump on outer L leg x 3 weeks HPI Gagandeep Duarte is a 77 year old male who presents today for lump to left thigh. Had a mechanical fall in [place] 3 weeks ago. Fell backwards and then noticed the lump but unsure if it was present prior to that. Lump itself did not bruise but had large amount of bruising to LLE that is improving. States lump is tender but no pain. Feels it has gotten slightly smaller. Denies any other injury or concern post fall. Denies swelling, redness, fever, chills, weakness, numbness, or difficulty bearing weight. On warfarin for Mitral valve replacement in 1989. Has had some difficulty with control of INR recently but no lapse in medication. Denies any recent surgery, long, trips, or bed rest. REVIEW OF SYSTEMS General: no fevers, no chills, no night sweats, no recurrent infections, no change in appetite, no change in energy, and no significant changes in weight Respiratory: no cough, no wheezing, no increase in chronic shortness of breath, no hemoptysis Cardiovascular: no chest pain, no chest pressure, no palpitations, and no swelling Neurologic: No headache, weakness, numbness, tingling, neck stiffness, tremor, vertigo, dizziness, memory loss, syncope. PAST MEDICAL HISTORY Diagnosis Date Anxiety Anxiety and depression 12/26/2014 At risk for stroke Back pain Bradycardia CHF (congestive heart failure) ([facility]) Dyspepsia Fracture History of sick sinus syndrome Hyperlipidemia 05/03/2015 Hypertension 12/26/2014 Hypogonadism in male Inguinal hernia Mitral valve regurgitation [facility] Angelo valve replacement 1989 Panic attacks Permanent atrial fibrillation (HCC) atrial fibrillation diagnosed 2008, permanent by 2016 Pneumonia As a child Posterior vitreous detachment - Both Eyes 07/26/2014 Presence of cardiac pacemaker Medtronic dual-chamber pacemaker implanted 11/2016; indication: symptomatic sick sinus syndrome Pulmonary fibrosis (HCC) S/P MVR (mitral valve replacement) 12/02/[address] has a [place] Angelo valve in 1989. On coumadin since. He needs to be in the 2.5 to 3.5. He has been on 2.5 on all days except Friday and sat of 3.0. 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 Shoulder impingement 01/06/2014 Verruca vulgaris PAST SURGICAL HISTORY Procedure Laterality Date BACK SURGERY HX 2007 lower back surgery BASIC PACEMAKER DUAL CHAMBER Left 11/11/2016 Medtronic dual-chamber pacemaker; indication: symptomatic sick sinus syndrome CARDIAC CATH 04/28/2020 moderate 60% disease of LAD; moderate LV systolic dysfunction ECHO TRANSESOPHAG CONGEN PROBE [facility] I&R 05/18/2020 see report; notable for moderate LV systolic dysfxn, LVEF 35% ECHOCARDIOGRAM 01/31/2020 mild LV systolic dysfxn; LVEF 51% EPS: VT ABLATION 09/22/2017 PVC RF catheter ablation at aortomitral continuity and junction of L/R coronary cusps HEART VALVE REPLACEMENT 1989 MVR (mechanical SJM) PHARMACOLOGIC NUCLEAR STRESS 03/06/2020 no ischemia; small region of scar in RCA territory; mild to moderate LV systolic dysfunction, LVEF 43% RPR 1ST INGUN HRNA AGE 3 YRS/> REDUCIBLE 2012 Hernia repair, inguinal ALLERGIES Patient has no known allergies. MEDICATIONS PARoxetine (PAXIL) 20 mg tablet^Take 1 tablet by mouth once daily.^Disp: 30 tablet^Rfl: 5 lisinopril (ZESTRIL, PRINIVIL) 10 mg tablet^Take 10 mg by mouth once daily.^Disp: ^Rfl: atorvastatin (LIPITOR) 20 mg tablet^Take 1 tablet by mouth once daily.^Disp: 90 tablet^Rfl: 2 carvedilol (COREG) 3.125 mg tablet^Take 1 tablet by mouth twice daily.^Disp: 180 tablet^Rfl: 3 warfarin (COUMADIN) 3 mg tablet^Take as directed by [facility] Anticoagulation Clinic.^Disp: 30 tablet^Rfl: 5 potassium chloride (K-TAB) 10 mEq tablet^Take 1 tablet by mouth daily with breakfast.^Disp: 90 tablet^Rfl: 3 warfarin (COUMADIN) 2.5 mg tablet^Take 1 tablet by mouth once daily. Take as directed by the Coumadin Clinic^Disp: 30 tablet^Rfl: 5 torsemide (DEMADEX) 20 mg tablet^Take 1 tablet by mouth once daily^Disp: 90 tablet^Rfl: 3 FAMILY HISTORY Problem Relation Age of Onset Diabetes Mother Diabetes Maternal Grandmother Diabetes Maternal Grandfather Social History Tobacco Use Smoking status: Never Smokeless tobacco: Never Vaping Use Vaping Use: Never used Substance Use Topics Alcohol use: No Drug use: No PHYSICAL EXAM BP 106/66 Pulse (!) 56 Resp 16 Wt 79.8 kg (176 lb) BMI 23.87 kg/m General Appearance: well appearing, in no acute distress, alert Eyes: conjunctiva pink and moist, no icterus, sclera white, non-injected Lungs: Lungs clear to auscultation. No wheezing, rhonchi, rales. Heart: RRR without murmur, gallop, or rubs. No ectopy RLE Extremities: No deformities, edema, skin discoloration, clubbing or cyanosis. Pulses palpable LLE Extremities: No edema, skin discoloration, clubbing or cyanosis. Pulses palpable. Large firm mass noted to lateral side of left thigh. No redness or bruising noted to area. Surrounding skin normal in color and no edema. Does report slight tenderness to mass but no grimacing or guarding noted. Bruising noted to posterior left lower extremity especially to posterior knee. Musculoskeletal: No joint swelling, deformity, or tenderness Neurological: Gait normal. Sensation intact., speech normal, mental status intact, muscle tone normal, muscle strength normal Health maintenance reviewed with patient: SHINGRIX VACCINE(2 of 3) due on 07/12/2013 DTAP,TDAP,TD(1 - Tdap) due on 07/06/2020 ADVANCE DIRECTIVE DISCUSSION Never done ANNUAL PCP TEAM CHRONIC DISEASE VISIT due on 08/22/2023 DIABETES SCREEN due on 03/07/2025 INFLUENZA Completed COVID-19 VACCINE Completed PNEUMOCOCCAL: 65+ Completed DATA REVIEWED: No new labs ASSESSMENT/PLAN: 1. Mass of left lower extremity - ICD9: 782.2, ICD10: R22.42 - fluid collection from injury a possibility. No abnormality outside of bruising to knee and other parts of extremity. No difficulty with walking, changing positions, or sitting. - US EXTREMITY MASS/FLUID COLLECTION LT - follow up depending on result Prescription instructions reviewed with patient as applicable. Potential red flag symptoms discussed with the patient. Reviewed appropriate action plan to take if red flag symptoms occur. Patient agreeable to treatment plan. Neeta Bowman APRN.CNP documented in this encounter [facility] 10-09-2022 Miscellaneous Notes Called pt back at the number below. He said he hasn't had really any vitamin K containing foods lately. He used to have spinach at least once weekly. Pt denies medication change, grapefruit/cranberry ingestion, OTC medication use, accidental overdosage, change in Warfarin tablet shape or color, recent illness or fever, increased edema, NVD, or EtOH consumption. He said he will try to work in a little more vitamin K in his diet moving forward. He will skip his dose today and test by the end of next week. Mireya Madsen PharmD Pharmacy Anticoagulation Clinic Patient returned the call. [phone] [facility] Ambulatory Pharmacy Anticoagulation Clinic Anticoagulation Episode Summary Anticoagulation Care Providers Provider Role Specialty Phone number Macey Lee MD [facility] Internal Medicine [phone] Gagandeep Marion Duarte is a 77 year old year old male patient being evaluated today for a Telemanagement visit. Patient is currently on the following anticoagulant(s) Warfarin. Labs PT INR (no units) Date Value 08/08/2022 2.5 08/09/2021 1.7 01/25/2021 3.4 (BioTel) INR Home CoaguChek (no units) Date Value 10/08/2022 5.5 09/20/2022 2.5 09/12/2022 4.0 Hemoglobin (g/dL) Date Value 03/07/2022 12.3 07/09/2021 12.7 Hematocrit (%) Date Value 03/07/2022 36.4 07/09/2021 39.1 Platelet Count (k/uL) Date Value 03/07/2022 139 07/09/2021 142 Creatinine (mg/dL) Date Value 03/07/2022 1.23 03/04/2022 1.22 01/19/2022 1.17 07/09/2021 1.19 07/03/2020 1.09 04/28/2020 0.94 Bilirubin, Total (mg/dL) Date Value 03/07/2022 0.6 04/28/2020 1.2 ALT (U/L) Date Value 03/07/2022 10 04/28/2020 13 AST (U/L) Date Value 03/07/2022 26 04/28/2020 28 CrCl cannot be calculated (Patient's most recent lab result is older than the maximum 180 days allowed.). ALLERGIES No Known Allergies Indication for Warfarin: S/p mvr (mitral valve replacement) Anticoagulant long-term use Anticoagulation Episode Summary Current INR goal: 2.5-3.5 Assessment: INR result of 5.5 is SUPRAtherapeutic due to: unknown cause - did not speak to patient Plan: Current Warfarin Dosing As of 10/09/2022 Full warfarin instructions: 10/09: Hold; Otherwise 5.5 mg every Fri; 2.5 mg all other days Left voice message Advised patient to hold his dose today. Asked him to have little more vitamin K in his diet if able. Asked him to call the PAC back. Mireya Madsen RPh Clinical Pharmacist, Pharmacy Anticoagulation Clinic Pharmacy Anticoagulation Clinic Pager: [phone]. PATIENT CALL [facility] called call center regarding results. PT INR (no units) Date Value 08/08/2022 2.5 08/09/2021 1.7 01/25/2021 3.4 (BioTel) INR Home CoaguChek (no units) Date Value 10/08/2022 5.5 09/20/2022 2.5 09/12/2022 4.0 Patient can be reached at [phone] Greg Wilson ([employer]) documented in this encounter [facility] 10-04-2022 Miscellaneous Notes Patient due to test INR today. Will continue to monitor for results. Deisy Naylor RPh documented in this encounter [facility] 10-01-2022 Note HNO ID: [id number] Author: Tereso Garcia Rust Service: ? Author Type: ? Type: Progress Notes Filed: 10/01/2022 2:15 PM Note Text: Per [place] study protocol. [facility] 09-13-2022 Miscellaneous Notes Patient returned admin's voicemail. Admin relayed message from Dr. Sales regarding no need for routine bloodwork as he is off anti fibrotics. Patient expressed gratitude and stated that he understood. No additional action needed. Contacted patient to inform him that he doesn't need regular blood work from Dr. Sales's standpoint since he is off the antifibrotics. Patient did not answer. Admin left voicemail with callback info. Patient called to inquire about standing lab orders for CBC+DIFF and CMP. Please notify the patient of the frequency of lab work that should be performed. documented in this encounter [facility] 09-12-[address] [facility] Ambulatory Pharmacy Anticoagulation Clinic Anticoagulation Episode Summary Anticoagulation Care Providers Provider Role Specialty Phone number Macey Lee MD Responsible Internal Medicine [phone] Gagandeep Marion Duarte is a 77 year old year old male patient being evaluated today for a Telemanagement visit. Patient is currently on the following anticoagulant(s) Warfarin. Labs PT INR (no units) Date Value 08/08/2022 2.5 08/09/2021 1.7 01/25/2021 3.4 (BioTel) INR Home CoaguChek (no units) Date Value 09/12/2022 4.0 09/07/2022 5.6 08/08/2022 2.5 Hemoglobin (g/dL) Date Value 03/07/2022 12.3 07/09/2021 12.7 Hematocrit (%) Date Value 03/07/2022 36.4 07/09/2021 39.1 Platelet Count (k/uL) Date Value 03/07/2022 139 07/09/2021 142 Creatinine (mg/dL) Date Value 03/07/2022 1.23 03/04/2022 1.22 01/19/2022 1.17 07/09/2021 1.19 07/03/2020 1.09 04/28/2020 0.94 Bilirubin, Total (mg/dL) Date Value 03/07/2022 0.6 04/28/2020 1.2 ALT (U/L) Date Value 03/07/2022 10 04/28/2020 13 AST (U/L) Date Value 03/07/2022 26 04/28/2020 28 CrCl cannot be calculated (Patient's most recent lab result is older than the maximum 180 days allowed.). ALLERGIES No Known Allergies Indication for Warfarin: S/p mvr (mitral valve replacement) Anticoagulant long-term use Anticoagulation Episode Summary Current INR goal: 2.5-3.5 Assessment: INR result of 4.0 is SUPRAtherapeutic due to: No obvious cause Plan: Current Warfarin Dosing As of 09/12/2022 Full warfarin instructions: 2.5 mg every day Called and spoke to patient/caregiver Advised patient to decrease total weekly regimen Next point of care INR check scheduled on 09/19/2022 Patient verbalizes understanding of the plan. Patient denies need for refills. Maryan Berumen [facility] Clinical Pharmacist, Pharmacy Anticoagulation Clinic Pharmacy Anticoagulation Clinic Pager: [phone]. documented in this encounter [facility] 09-09-[address] [facility] Ambulatory Pharmacy Anticoagulation Clinic Anticoagulation Episode Summary Anticoagulation Care Providers Provider Role Specialty Phone number Macey Lee MD Responsible Internal Medicine [phone] Gagandeep Marion Haim is a 77 year old year old male patient being evaluated today for a Telemanagement visit. Patient is currently on the following anticoagulant(s) Warfarin. Labs PT INR (no units) Date Value 08/08/2022 2.5 08/09/2021 1.7 01/25/2021 3.4 (BioTel) INR Home CoaguChek (no units) Date Value 09/07/2022 5.6 08/08/2022 2.5 07/18/2022 2.2 CrCl cannot be calculated (Patient's most recent lab result is older than the maximum 180 days allowed.). 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 Plan: Current Warfarin Dosing As of 09/09/2022 Full warfarin instructions: 6 mg every Cassie; 2.5 mg all other days Called and spoke to patient/caregiver Advised patient to hold 1 dose then continue current regimen Next INR check due on 09/11/2022 Patient verbalizes understanding of the plan. Husam Chilel RPh Clinical Pharmacist, Pharmacy Anticoagulation Clinic Pharmacy Anticoagulation Clinic Pager: [phone]. PATIENT CALL Paulette called call center regarding results PT INR (no units) Date Value 08/08/2022 2.5 08/09/2021 1.7 01/25/2021 3.4 (BioTel) INR Home CoaguChek (no units) Date Value 09/07/2022 5.6 08/08/2022 2.5 07/18/2022 2.2 Patient can be reached at [phone] Greg Wilson, Overnight Caregiver (cuff setter lockstitch) Pharmacy Anticoagulation Clinic documented in this encounter [facility] 08-30-2022 Miscellaneous Notes Patient due to test INR today. Will continue to monitor for results. Deisy Naylor RPh documented in this encounter [facility] 08-26-2022 Note [facility] 08-26-2022 History of Presen t illness Narrative Consultation requested by Dr. Funez for an opinion regarding ILD. My final recommendations will be communicated back to the requesting physician by way of shared Medical record or letter to requesting physician via US mail. Thank you for requesting the consult on Mr. Gagandeep Duarte. I saw him in my interstitial lung disease clinic. Please find my evaluation below. CHIEF COMPLAINT: Patient presents with: Recheck HISTORY OF PRESENT ILLNESS: Mr. Gagandeep Duarte who presents today for ILD Per initial HPI Dyspnea on exertion, slowly progressive over the past few years Fatigue and drowsiness during the day Cardiac work up was unrevealing , led to Chest CT which showed ILD He is Able to to walk a couple of blocks, trouble with 2 flight os steps Mild cough, worse at night , dry mostly Mild wheezing No chest pain No pedal edema No orthopnea C/o chronic fatigue, which is slightly better recently Snores at night, no apneic spells noted Continues to be quite active, takes the dog for a walk and go up inclines occasionally Dry mouth Pedal edema waxes and wanes Occasional dysphagia Raynaud's positive GERD- minimal symptoms, hoarse voice main symptom Denies dry eyes, dry mouth, oral/nasal ulcers, gastroesophageal reflux, joint pain or swelling, muscle pain or weakness, change in skin texture, rash or skin lesions, photosensitivity, alopecia Never smoker, no drug, no E cig use. 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 Dogs and cats at home. No hot tub at home. No feather products currently. Lives at home with his Hobbies include carpentry. Since last visit He is feeling about the same, perhaps slightly worse over time Continues to walk the dog everyday Some dyspnea with steps, incline, can walk a mile or more on flat ground Wasn't able to tolerate esbriet, stopped Completed pulmonary rehab in , going to the gym now No muscle pain, weakness, skin issues REVIEW OF SYSTEMS - 12 system ROS done, negative unless mentioned in HPI PAST MEDICAL HISTORY Diagnosis Date Anxiety Anxiety and depression 12/26/2014 At risk for stroke Back pain Bradycardia CHF (congestive heart failure) (HCC) Dyspepsia Fracture History of sick sinus syndrome Hyperlipidemia 05/03/2015 Hypertension 12/26/2014 Hypogonadism in male Inguinal hernia Mitral valve regurgitation St Angelo valve replacement 1989 Panic attacks Permanent atrial fibrillation (HCC) atrial fibrillation diagnosed 2008, permanent by 2016 Pneumonia As a child Posterior vitreous detachment - Both Eyes 07/26/2014 Presence of cardiac pacemaker Medtronic dual-chamber pacemaker implanted 11/2016; indication: symptomatic sick sinus syndrome Pulmonary fibrosis (HCC) S/P MVR (mitral valve replacement) 12/02/[address] patient has a [place] Angelo valve in 1989. On coumadin since. He needs to be in the 2.5 to 3.5. He has been on 2.5 on all days except Friday and sat of 3.0. 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 Shoulder impingement 01/06/2014 Verruca vulgaris PAST SURGICAL HISTORY Procedure Laterality Date BACK SURGERY HX 2007 lower back surgery BASIC PACEMAKER DUAL CHAMBER Left 11/11/2016 Medtronic dual-chamber pacemaker; indication: symptomatic sick sinus syndrome CARDIAC CATH 04/28/2020 moderate 60% disease of LAD; moderate LV systolic dysfunction ECHO TRANSESOPHAG CONGEN PROBE [facility] I&R 05/18/2020 see report; notable for moderate LV systolic dysfxn, LVEF 35% ECHOCARDIOGRAM 01/31/2020 mild LV systolic dysfxn; LVEF 51% EPS: VT ABLATION 09/22/2017 PVC RF catheter ablation at aortomitral continuity and junction of L/R coronary cusps HEART VALVE REPLACEMENT 1989 MVR (mechanical SJM) PHARMACOLOGIC NUCLEAR STRESS 03/06/2020 no ischemia; small region of scar in RCA territory; mild to moderate LV systolic dysfunction, LVEF 43% RPR 1ST INGUN HRNA AGE 3 YRS/> REDUCIBLE 2011 Hernia repair, inguinal ALLERGIES ALLERGIES No Known Allergies MEDICATIONS Current Outpatient Medications Medication Sig PARoxetine (PAXIL) 20 mg tablet Take 1 tablet by mouth once daily. Fluocinolone Acetonide Oil 0.01 % drop APPLY TO RASH IN BOTH EARS ONCE TO TWICE DAILY WHEN RED OR SCALY pantoprazole DR (PROTONIX) 20 mg tablet Take by mouth. lisinopril (ZESTRIL, PRINIVIL) 10 mg tablet Take 10 mg by mouth once daily. atorvastatin (LIPITOR) 20 mg tablet Take 1 tablet by mouth once daily. carvedilol (COREG) 3.125 mg tablet Take 1 tablet by mouth twice daily. fluticasone (FLONASE) 50 mcg/actuation nasal spray Use 2 Sprays in each nostril once daily. Rinse mouth after use. warfarin (COUMADIN) 3 mg tablet Take as directed by [facility]tico[facility]. potassium chloride (K-TAB) 10 mEq tablet Take 1 tablet by mouth daily with breakfast. warfarin (COUMADIN) 2.5 mg tablet Take 1 tablet by mouth once daily. Take as directed by the Coumadin Clinic torsemide (DEMADEX) 20 mg tablet Take 1 tablet by mouth once daily sildenafil (VIAGRA) 25 mg tablet Take 1 tablet by mouth as needed. No current facility-administered medications for this visit. PHYSICAL EXAMINATION Physical Exam above was completed in entirety 08/26/22, and is unchanged from the last visit conducted by Nancy Sales MD Except where noted in bold BP 108/55 Pulse (!) 45 Temp 36.3 C (97.4 F) Resp 18 Ht 182.9 cm (6') Wt 78.9 kg (174 lb) SpO2 97% BMI 23.60 kg/m General: Well developed, well nourished ,in no apparent distress Head: Normal cephalic ENT: No sinus tenderness, Neck: Supple Chest: Normal vesicular breath sounds. No adventitial sounds heard. No respiratory distress or accessory muscle use Cardiac: Regular rate and rhythm Abdomen: Soft, non-tender, non-distended Extremities: No clubbing, cyanosis or edema Skin/hair: No rash or suspicious lesions. Neurologic: grossly normal DATA REVIEWED Labs: Latest Reference Range & Units 12/17/21 15:50 12/17/21 15:51 OSCAR Negative Negative OSCAR by EIA, Qual Negative Positive ! DNA Antibody w/Confirmation <30 IU/mL 12.23 Anti-LABOR DELIVERY RN <1.0 AI <1.0 AI <0.2 <0.2 Ribosomal LABOR DELIVERY RN Ab <1.0 AI <1.0 AI 0.2 0.2 Anti-SSB <1.0 AI <1.0 AI <0.2 <0.2 Anti-Sm <1.0 AI <1.0 AI <0.2 <0.2 Sm Antibody Negative Negative Negative Negative Anti-SSA <1.0 AI <1.0 AI 0.2 0.2 Scl-70 Abs, EIA <1.0 AI <1.0 AI <0.2 <0.2 Gail 1 Antibody <1.0 AI <1.0 AI <0.2 <0.2 Chromatin Ab <1.0 AI <1.0 AI <0.2 <0.2 Centromere Ab <1.0 AI <1.0 AI <0.2 <0.2 Rheumatoid Factor <16 IU/mL <10 c-ANCA Fluorescence Negative Negative p-ANCA Fluorescence Negative Negative Interpretation (ANCA) Negative for C-ANCA and P-ANCA by indirect immunofluorescence. Staff Review (ANCA) No review performed. CCP Antibody, IgG <20 Units <15 Gail-1 Antibody, IgG 0 - 40 AU/mL 1 Mi-[address] Antibody Negative Negative PL-12 Antibody Negative Negative P155/140 Antibody Negative Negative EJ Antibody Negative Negative SRP Antibody Negative Negative OJ Antibody Negative Negative SAE1 Antibody Negative Negative NXP-2 Antibody Negative Positive ! MDA5 Antibody Negative Negative TIF-1 gamma Antibody Negative Negative Polymyositis Interpretation See Note Ribosomal LABOR DELIVERY RN Qualitative Negative Negative Negative Negative LABOR DELIVERY RN Antibody QUAL Negative Negative Negative Negative SSA Antibody Qual Negative Negative Negative Negative SSB Antibody Qual Negative Negative Negative Negative CENTROMERE AB QUAL Negative Negative Negative Negative Chromatin Ab Qual Negative Negative Negative Negative GAIL 1 ANTIBODY QUAL Negative Negative Negative Negative Scleroderma Ab Qual Negative Negative Negative Negative CCP Antibody IgG Qualitative Negative Negative !: Data is abnormal WBC (k/uL) Date Value 03/07/2022 6.25 RBC (m/uL) Date Value 03/07/2022 3.73 (L) Hemoglobin (g/dL) Date Value 03/07/2022 12.3 (L) Hematocrit (%) Date Value 03/07/2022 36.4 (L) MCV (fL) Date Value 03/07/2022 97.6 MCH (pg) Date Value 03/07/2022 33.0 MCHC (g/dL) Date Value 03/07/2022 33.8 RDW-CV (%) Date Value 03/07/2022 14.6 Platelet Count (k/uL) Date Value 03/07/2022 139 (L) MPV (fL) Date Value 03/07/2022 10.2 Neut% (%) Date Value 03/07/2022 63.0 Lymph% (%) Date Value 03/07/2022 21.8 [place]% (%) Date Value 03/07/2022 9.4 Eosin% (%) Date Value 07/09/2021 3.6 Baso% (%) Date Value 03/07/2022 1.0 Abs Neut (k/uL) Date Value 03/07/2022 3.94 Abs [place] (k/uL) Date Value 03/07/2022 0.59 Abs Eosin (k/uL) Date Value 03/07/2022 0.28 Abs Baso (k/uL) Date Value 03/07/2022 0.06 Glucose (mg/dL) Date Value 03/07/2022 99 BUN (mg/dL) Date Value 03/07/2022 34 (H) Creatinine (mg/dL) Date Value 03/07/2022 1.23 (H) Sodium (mmol/L) Date Value 03/07/2022 139 Potassium (mmol/L) Date Value 03/07/2022 4.5 Chloride (mmol/L) Date Value 03/07/2022 103 CO2 (mmol/L) Date Value 03/07/2022 27 Protein, Total (g/dL) Date Value 03/07/2022 6.5 Albumin (g/dL) Date Value 03/07/2022 4.2 Calcium, Total (mg/dL) Date Value 03/07/2022 8.7 Alkaline Phosphatase (U/L) Date Value 03/07/2022 200 (H) 03/07/2022 200 (H) Bilirubin, Total (mg/dL) Date Value 03/07/2022 0.6 AST (U/L) Date Value 03/07/2022 26 ALT (U/L) Date Value 03/07/2022 10 Pulmonary function tests: FEV1 2.42/80 FVC 3.02/73 FEV1/FVC 80 FEF 25-75 TLC 67 RV 72 DLCO 51 6MWD 1135 ft Lowest spo2 100 O2 needs RA Highest HR Imaging: Chest CT- IMPRESSION: Interstitial lung disease probably greater on the RIGHT. Localized honeycombing LEFT lung base. Right lower lobe groundglass airspace disease. Constellation of findings are most likely predominantly due to fibrosis. Alveolitis in the area of groundglass airspace disease cannot be excluded. Cardiomegaly Pericardial calcification. 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 Mild symptoms. DLCO at 50 %. Preserved FVC No significant exposures. Some autoimmune features- raynaud's GAP Score 5 Unable to tolerate pirfenidone, stopped. # anti NXP2 ab positive, no symptoms or clinical features of myositis, saw rheumatology as well PLAN: - hold off on antifibrotics, reassess on next visit - Dr. Gaffney- will reach to her about any additional work up needed , no evidence of autoimmune disease at this time - screen for clinical trials considering horizon study - RTC in 3-4 months with testing - PFTs, walk and CT Orders Placed This Encounter CT CHEST WO IVCON Standing Status: Future Standing Expiration Date: 09/25/2023 Order Specific Question: Feedback on new indications (will be displayed on the order) Answer: None ADULT - LUNG DIFFUSION CAPACITY (DLCO) Standing Status: Future Standing Expiration Date: 09/25/2023 Order Specific Question: Should this patient be seen in a Pediatric Lab? Answer: No ADULT - SPIROMETRY WITH DILATOR IF OBSTRUCTED Standing Status: Future Standing Expiration Date: 09/25/2023 Scheduling Instructions: Please call [phone] to schedule, cancel, or change an appointment. Order Specific Question: Should this patient be seen in a Pediatric Lab? Answer: No ADULT - SIX MINUTE WALK Standing Status: Future Standing Expiration Date: 09/25/2023 Order Specific Question: Should this patient be seen in a Pediatric Lab? Answer: No Thank you again for allowing me to participate in the care of Gagandeep Duarte along with you. Please do not hesitate to call me with any questions. Best Regards, Nancy Sales MD, [facility] Staff Physician Respiratory [place] I spent 35 minutes on this encounter which includes time spent on face to face encounter, counseling and coordinating care regarding interpretation of symptoms and tests and diagnostic and therapeutic options and charting on the day of the visit. This note was generated with voice recognition software and may contain errors, including spelling, grammar, syntax and misrecognition of what was dictated, that are not fully corrected. documented in this encounter [facility] 08-22-2022 Note [facility] 08-22-2022 History of Presen t illness Narrative Reason for Visit Patient presents with: Recheck: Fibrosis questions Gagandeep Duarte is a 76 year old male who presents here today for Above Complaints.. Health Maintenance HEPATITIS C SCREENING SHINGRIX VACCINE(2 of 3) DTAP,TDAP,TD(1 - Tdap) ADVANCE DIRECTIVE DISCUSSION HPI [facility] he was done with his pulmonary rehab for ILD, and pulm fibrosis. The rehab helped him a little bit, but he has not been feeling any energy or enthusiasm. Patient notes it is both lack of energy and motivation. He notes he was to follow up for the fibrosis with Dr Cruz but he does not have an appointment for it. Patient has see cardiology recently and was told everything was stable with the functioning of his heart He admits to being a little depressed. No problem-specific Assessment & Plan notes found for this encounter. PAST MEDICAL HISTORY Diagnosis Date Anxiety Anxiety and depression 12/26/2014 At risk for stroke Back pain Bradycardia CHF (congestive heart failure) (HCC) Dyspepsia Fracture History of sick sinus syndrome Hyperlipidemia 05/03/2015 Hypertension 12/26/2014 Hypogonadism in male Inguinal hernia Mitral valve regurgitation [facility] valve replacement 1989 Panic attacks Permanent atrial fibrillation (HCC) atrial fibrillation diagnosed 2008, permanent by 2016 Pneumonia As a child Posterior vitreous detachment - Both Eyes 07/26/2014 Presence of cardiac pacemaker Medtronic dual-chamber pacemaker implanted 11/2016; indication: symptomatic sick sinus syndrome Pulmonary fibrosis (HCC) S/P MVR (mitral valve replacement) 12/02/[address] patient has a [facility] valve in 1989. On coumadin since. He needs to be in the 2.5 to 3.5. He has been on 2.5 on all days except Friday and sat of 3.0. 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 Shoulder impingement 01/06/2014 Verruca vulgaris PAST SURGICAL HISTORY Procedure Laterality Date BACK SURGERY HX 2007 lower back surgery BASIC PACEMAKER DUAL CHAMBER Left 11/11/2016 Medtronic dual-chamber pacemaker; indication: symptomatic sick sinus syndrome CARDIAC CATH 04/28/2020 moderate 60% disease of LAD; moderate LV systolic dysfunction ECHO TRANSESOPHAG CONGEN PROBE [facility] I&R 05/18/2020 see report; notable for moderate LV systolic dysfxn, LVEF 35% ECHOCARDIOGRAM 01/31/2020 mild LV systolic dysfxn; LVEF 51% EPS: VT ABLATION 09/22/2017 PVC RF catheter ablation at aortomitral continuity and junction of L/R coronary cusps HEART VALVE REPLACEMENT 1989 MVR (mechanical SJM) PHARMACOLOGIC NUCLEAR STRESS 03/06/2020 no ischemia; small region of scar in RCA territory; mild to moderate LV systolic dysfunction, LVEF 43% RPR 1ST INGUN HRNA AGE 3 YRS/> REDUCIBLE 2012 Hernia repair, inguinal FAMILY HISTORY Problem Relation Age of Onset Diabetes Mother Diabetes Maternal Grandmother Diabetes Maternal Grandfather Social History Tobacco Use Smoking status: Never Smokeless tobacco: Never Vaping Use Vaping Use: Never used Substance Use Topics Alcohol use: No Drug use: No Past medical history, appointments, medications, allergies reviewed. Pertinent Lab/Diagnostic Studies are reviewed and discussed today Current Outpatient Medications: Fluocinolone Acetonide Oil 0.01 % drop pantoprazole DR (PROTONIX) 20 mg tablet lisinopril (ZESTRIL, PRINIVIL) 10 mg tablet atorvastatin (LIPITOR) 20 mg tablet PARoxetine (PAXIL) 10 mg tablet carvedilol (COREG) 3.125 mg tablet fluticasone (FLONASE) 50 mcg/actuation nasal spray warfarin (COUMADIN) 3 mg tablet potassium chloride (K-TAB) 10 mEq tablet warfarin (COUMADIN) 2.5 mg tablet torsemide (DEMADEX) 20 mg tablet sildenafil (VIAGRA) 25 mg tablet Review of Systems CONSTITUTIONAL: No fevers, chills night sweats, unintended weight loss CARDIOVASCULAR: No chest pain, dyspnea, palpitations, orthopnea, PND, ankle edema. PULM: No dyspnea, unexplained cough. GI: No dysphagia/odynophagia, problematic reflux, constipation, diarrhea, changes in stool habits, hematochezia, melena. : No new urinary complaints, including dysuria, gross hematuria or pyuria. NEURO: No new balance problems, peripheral weakness/paresthesias or numbness of concern. Physical Exam BP 110/58 Pulse (!) 50 Resp 16 Wt 78.9 kg (174 lb) SpO2 97% BMI 23.59 kg/m General appearance: Well appearing, alert, in no acute distress, well nourished. Skin: Skin color, texture, turgor normal, no suspicious rashes or lesions Head: Normocephalic, no masses, lesions, tenderness or abnormalities Eyes: Anicteric sclera. Pupils are equally round and reactive to light. Extraocular movements are intact. Lungs: Lungs clear to auscultation. No wheezing, rhonchi, rales Heart: RRR without murmur, gallop, or rubs. Extremities: No deformities, edema, skin discoloration, clubbing or cyanosis. Good capillary refill. ASSESSMENT/PLAN: 1. Interstitial lung disease (HCC) - ICD9: 515, ICD10: J84.9 (primary diagnosis) - CONSULT TO PULMONARY MEDICINE 2. Pulmonary fibrosis (HCC) - ICD9: 515, ICD10: J84.10 - CONSULT TO PULMONARY MEDICINE 3. Anxiety and depression - ICD9: 300.00, 311, ICD10: F41.9, F32.A To continue the paxil on an increased dose. 4. Thrombocytopenia (HCC) - ICD9: 287.5, ICD10: D69.6 5. ILD (interstitial lung disease) (HCC) - ICD9: 515, ICD10: J84.9 6. Permanent atrial fibrillation (HCC) - ICD9: 427.31, ICD10: I48.21 Cont the coumadin. aMcey Lee MD documented in this encounter [facility] 08-21-2022 Note HNO ID: [id number] Author: Franklin Jaramillo MD Service: ? Author Type: Physician Type: Progress Notes Filed: 08/21/2022 6:45 PM Note Text: PRIMARY CARE PHYSICIAN: Macey Lee [address] [place] [address] Patient Care Team: Macey Lee MD as PCP - General (Internal Medicine) Pharmacist 13 as Pharmacist (Pharmacy) Makayla Maldonado RN as Toy Assembly Supervisor (Internal Medicine) Jose Ramon Contreras MD as Specialty Liquid Compounder (Cardiology) Franklin Jaramillo MD as Specialty Liquid Compounder (Cardiology) Nancy Sales MD as Specialty Liquid Compounder (Pulmonary Disease) Natalia Gaffney MD as Specialty Liquid Compounder (Rheumatology) CHIEF COMPLAINT: Follow up for arrhythmia HISTORY OF PRESENT ILLNESS: Mr. Duarte is a 76 year old male who presents today for a cardiovascular medicine follow-up visit. History copied from previous notes, edited as needed: Dr. Jaramillo's previous office notes 06/19/2020: Mr. Duarte is a 74 year old male who presents today for evaluation for possible implantable cardioverter defibrillator (ICD) implant, possibly biventricular pacing AKA cardiac resynchronization system. He has a history of valvular heart disease. He underwent mechanical mitral valve replacement ([facility]) in 1993 severe mitral regurgitation. He has a pacemaker that was implanted in 2016 for symptomatic bradycardia. Atrial fibrillation was diagnosed in 2008 and by 2016 was considered permanent. He also has a history of symptomatic PVCs and underwent successful catheter ablation September 2017. More recently, he was experiencing exertional shortness of breath. He describes this occurring since about August 2019 and he noticed it when he was walking his dog outside, especially when walking up an incline or hill. He was not experiencing chest discomfort or angina with these episodes. An echocardiogram in January 2020 revealed normal left ventricular systolic function, LVEF 51%. A pharmacological nuclear stress test February 2020 revealed no ischemia, but there was some evidence for scar in a small territory of the right coronary artery. Left ventricular systolic function was considered to be mildly decreased, LVEF 43%. He underwent cardiac catheterization 04/28/2020, and this revealed moderate CAD with mid LAD 60% lesion. He was treated medically. Ventriculogram during the study revealed moderate left ventricular systolic dysfunction. A transesophageal echo 05/18/2020 revealed moderate left ventricular systolic dysfunction, LVEF 35%. The mechanical mitral valve was found to have normal function. He has been noted to have some bradycardia, although he only has about 1.5% RV pacing with the pacemaker programmed to VVI 40 bpm backup pacing mode. Mr. Duarte states that overall he feels reasonably well. He is able to do most if not all of the activities that he would like to do. He is not experiencing severe lightheadedness, near-syncope or syncope. He denies chest pain, orthopnea, cough, palpitations, PND. Interim History Dr. Jaramillo 07/24/2021: Mr. Duarte presents for routine follow-up for arrhythmia and pacemaker. He states that he overall he has been doing reasonably well, has not been aware of any problems with the pacemaker or the implant site at the left upper chest. He does state that he sometimes notices some exertional fatigue or even shortness of breath when he is walking his dog, such as coming up a hill. He does walk his dog in an area with a lot of hills and even ravines. He sometimes has to stop a couple of times. He has not been experiencing chest discomfort at rest or with exertion. No severe lightheadedness, near-syncope or syncope.. Interim History Dr. Jaramillo 08/21/2022: Mr. Duarte presents for follow-up evaluation for arrhythmia, pacemaker. He has permanent atrial fibrillation, this arrhythmia is asymptomatic, the treatment strategy is ventricular rate control and stroke prevention. He has a pacemaker that was implanted in 2016 for sick sinus syndrome. He has not had any problems with the pacemaker site, such as pain, swelling, tenderness, drainage. He states he has been diagnosed with pulmonary fibrosis, just finished 3 months of pulmonary rehab at [facility]. I have confirmed and edited as necessary, the PFSH and ROS obtained by others. PAST MEDICAL HISTORY Diagnosis Date Anxiety Anxiety and depression 12/26/2014 At risk for stroke Back pain Bradycardia CHF (congestive heart failure) (HCC) Dyspepsia Fracture History of sick sinus syndrome Hyperlipidemia 05/03/2015 Hypertension 12/26/2014 Hypogonadism in male Inguinal hernia Mitral valve regurgitation [facility] valve replacement 1989 Panic attacks Permanent atrial fibrillation (HCC) atrial fibrillation diagnosed 2008, permanent by 2016 Pneumonia As a child Posterior vitreous detachment - Both Eyes 07/26/2014 Presence of ca (more content not included)... [facility] 08-21-2022 Nurse Note NO CARDIAC CONCERNS TODAY documented in this encounter [facility] 08-21-2022 History of Presen t illness Narrative PRIMARY CARE PHYSICIAN: Macey Lee [address] [place] [address] Patient Care Team: Macey Lee MD as PCP - General (Internal Medicine) Pharmacist 13 as Pharmacist (Pharmacy) Makayla Maldonado RN as Toy Assembly Supervisor (Internal Medicine) Jose Ramon Contreras MD as Specialty Liquid Compounder (Cardiology) Franklin Jaramillo MD as Specialty Liquid Compounder (Cardiology) Nancy Sales MD as Specialty Liquid Compounder (Pulmonary Disease) Natalia Gaffney MD as Specialty Liquid Compounder (Rheumatology) CHIEF COMPLAINT: Follow up for arrhythmia HISTORY OF PRESENT ILLNESS: Mr. Duarte is a 76 year old male who presents today for a cardiovascular medicine follow-up visit. History copied from previous notes, edited as needed: Dr. Jaramillo's previous office notes 06/19/2020: Mr. Duarte is a 74 year old male who presents today for evaluation for possible implantable cardioverter defibrillator (ICD) implant, possibly biventricular pacing AKA cardiac resynchronization system. He has a history of valvular heart disease. He underwent mechanical mitral valve replacement ([facility]) in 1993 severe mitral regurgitation. He has a pacemaker that was implanted in 2016 for symptomatic bradycardia. Atrial fibrillation was diagnosed in 2008 and by 2016 was considered permanent. He also has a history of symptomatic PVCs and underwent successful catheter ablation September 2017. More recently, he was experiencing exertional shortness of breath. He describes this occurring since about August 2019 and he noticed it when he was walking his dog outside, especially when walking up an incline or hill. He was not experiencing chest discomfort or angina with these episodes. An echocardiogram in January 2020 revealed normal left ventricular systolic function, LVEF 51%. A pharmacological nuclear stress test February 2020 revealed no ischemia, but there was some evidence for scar in a small territory of the right coronary artery. Left ventricular systolic function was considered to be mildly decreased, LVEF 43%. He underwent cardiac catheterization 04/28/2020, and this revealed moderate CAD with mid LAD 60% lesion. He was treated medically. Ventriculogram during the study revealed moderate left ventricular systolic dysfunction. A transesophageal echo 05/18/2020 revealed moderate left ventricular systolic dysfunction, LVEF 35%. The mechanical mitral valve was found to have normal function. He has been noted to have some bradycardia, although he only has about 1.5% RV pacing with the pacemaker programmed to VVI 40 bpm backup pacing mode. Mr. Duarte states that overall he feels reasonably well. He is able to do most if not all of the activities that he would like to do. He is not experiencing severe lightheadedness, near-syncope or syncope. He denies chest pain, orthopnea, cough, palpitations, PND. Interim History Dr. Jaramillo 07/24/2021: Mr. Duarte presents for routine follow-up for arrhythmia and pacemaker. He states that he overall he has been doing reasonably well, has not been aware of any problems with the pacemaker or the implant site at the left upper chest. He does state that he sometimes notices some exertional fatigue or even shortness of breath when he is walking his dog, such as coming up a hill. He does walk his dog in an area with a lot of hills and even ravines. He sometimes has to stop a couple of times. He has not been experiencing chest discomfort at rest or with exertion. No severe lightheadedness, near-syncope or syncope.. Interim History Dr. Jaramillo 08/21/2022: Mr. Duarte presents for follow-up evaluation for arrhythmia, pacemaker. He has permanent atrial fibrillation, this arrhythmia is asymptomatic, the treatment strategy is ventricular rate control and stroke prevention. He has a pacemaker that was implanted in 2017 for sick sinus syndrome. He has not had any problems with the pacemaker site, such as pain, swelling, tenderness, drainage. He states he has been diagnosed with pulmonary fibrosis, just finished 3 months of pulmonary rehab at [facility]. I have confirmed and edited as necessary, the PFSH and ROS obtained by others. PAST MEDICAL HISTORY Diagnosis Date Anxiety Anxiety and depression 12/26/2014 At risk for stroke Back pain Bradycardia CHF (congestive heart failure) (HCC) Dyspepsia Fracture History of sick sinus syndrome Hyperlipidemia 05/03/2015 Hypertension 12/26/2014 Hypogonadism in male Inguinal hernia Mitral valve regurgitation [facility] valve replacement 1989 Panic attacks Permanent atrial fibrillation (HCC) atrial fibrillation diagnosed 2008, permanent by 2016 Pneumonia As a child Posterior vitreous detachment - Both Eyes 07/26/2014 Presence of cardiac pacemaker Medtronic dual-chamber pacemaker implanted 11/2016; indication: symptomatic sick sinus syndrome S/P MVR (mitral valve replacement) 12/02/[address] patient has a [facility] valve in 1989. On coumadin since. He needs to be in the 2.5 to 3.5. He has been on 2.5 on all days except Friday and sat of 3.0. 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 Shoulder impingement 01/06/2014 Verruca vulgaris PAST SURGICAL HISTORY Procedure Laterality Date BACK SURGERY HX 2006 lower back surgery BASIC PACEMAKER DUAL CHAMBER Left 11/11/2016 Medtronic dual-chamber pacemaker; indication: symptomatic sick sinus syndrome CARDIAC CATH 04/28/2020 moderate 60% disease of LAD; moderate LV systolic dysfunction ECHO TRANSESOPHAG CONGEN PROBE [facility] I&R 05/18/2020 see report; notable for moderate LV systolic dysfxn, LVEF 35% ECHOCARDIOGRAM 01/31/2020 mild LV systolic dysfxn; LVEF 51% EPS: VT ABLATION 09/22/2017 PVC RF catheter ablation at aortomitral continuity and junction of L/R coronary cusps HEART VALVE REPLACEMENT 1989 MVR (mechanical SJM) PHARMACOLOGIC NUCLEAR STRESS 03/06/2020 no ischemia; small region of scar in RCA territory; mild to moderate LV systolic dysfunction, LVEF 43% RPR 1ST INGUN HRNA AGE 3 YRS/> REDUCIBLE 2012 Hernia repair, inguinal SOCIAL HISTORY Social History Tobacco Use Smoking status: Never Smokeless tobacco: Never Vaping Use Vaping Use: Never used Substance Use Topics Alcohol use: No Drug use: No FAMILY HISTORY Problem Relation Age of Onset Diabetes Mother Diabetes Maternal Grandmother Diabetes Maternal Grandfather ALLERGIES: ALLERGIES No Known Allergies MEDICATIONS: Fluocinolone Acetonide Oil 0.01 % drop APPLY TO RASH IN BOTH EARS ONCE TO TWICE DAILY WHEN RED OR SCALY pantoprazole DR (PROTONIX) 20 mg tablet Take by mouth. lisinopril (ZESTRIL, PRINIVIL) 10 mg tablet Take 10 mg by mouth once daily. atorvastatin (LIPITOR) 20 mg tablet Take 1 tablet by mouth once daily. PARoxetine (PAXIL) 10 mg tablet Take 1 tablet by mouth once daily. carvedilol (COREG) 3.125 mg tablet Take 1 tablet by mouth twice daily. fluticasone (FLONASE) 50 mcg/actuation nasal spray Use 2 Sprays in each nostril once daily. Rinse mouth after use. warfarin (COUMADIN) 3 mg tablet Take as directed by [facility] Antico[facility] Clinic. potassium chloride (K-TAB) 10 mEq tablet Take 1 tablet by mouth daily with breakfast. warfarin (COUMADIN) 2.5 mg tablet Take 1 tablet by mouth once daily. Take as directed by the [facility] Clinic torsemide (DEMADEX) 20 mg tablet Take 1 tablet by mouth once daily sildenafil (VIAGRA) 25 mg tablet Take 1 tablet by mouth as needed. Review of Systems Constitutional: Negative for chills, fever and malaise/fatigue. Respiratory: Positive for shortness of breath (exertional (chronic)). Negative for cough, hemoptysis and sputum production. Cardiovascular: Negative for chest pain, palpitations, orthopnea and PND. Gastrointestinal: Negative for abdominal pain, blood in stool, melena, nausea and vomiting. Genitourinary: Negative for hematuria. Skin: Negative for rash. Neurological: Negative for dizziness and loss of consciousness. PHYSICAL EXAMINATION: BP 115/66 Pulse 58 Ht 6' .008 (1.83m) Wt 175 lb (79.4kg) SpO2 94% BMI 23.73 kg/(m^2). Physical Exam Vitals reviewed. Constitutional: General: He is not in acute distress. Appearance: Normal appearance. HENT: Head: Normocephalic and atraumatic. Cardiovascular: Rate and Rhythm: Normal rate. Rhythm irregularly irregular. Heart sounds: Normal heart sounds, S1 normal and S2 normal. No murmur heard. No friction rub. Comments: pacemaker site left upper chest without erythema, warmth, tenderness, swelling, drainage or skin erosion Pulmonary: Effort: Pulmonary effort is normal. No respiratory distress. Breath sounds: No wheezing or rhonchi. Musculoskeletal: Cervical back: Neck supple. Right lower leg: No edema. Left lower leg: No edema. Skin: General: Skin is warm and dry. Neurological: General: No focal deficit present. Mental Status: He is alert and oriented to person, place, and time. Psychiatric: Mood and Affect: Mood normal. Behavior: Behavior normal. Thought Content: Thought content normal. CARDIOVASCULAR MEDICINE TESTING: Electrocardiogram: Atrial fibrillation with controlled ventricular response rate, average 64 bpm; incomplete left bundle branch block or nonspecific IVCD, QRS 108 ms; QTC 439 ms; nonspecific ST and T wave abnormality Device Check: pacemaker evaluation by [facility] dated today 08/21/2022, encounter summary copied here: PPM check, single lead system with programming. ID x2 for routine PM evaluation. Offers no complaints. Left chest pocket without signs of infection. Presenting rhythm irregular VS @ 44 to 74 bpm. Interrogation shows no VHR episodes since last check 03-20-22. Takes warfarin. Battery voltage 2.78V, estimated longevity 8 years. Lead impedance, sensing and pacing threshold stable - no changes made. Autocapture on. Counters cleared. Next device check scheduled for patient; questions answered. Rachell I have personally reviewed the Electrocardiogram and Device Check. I spent a total of 30 minutes on the date of the service which included preparing to see the patient, [id number] patient care, completing clinical documentation, obtaining and/or reviewing separately obtained history, performing a medically appropriate examination, counseling and educating the patient/family/caregiver, ordering medications, tests, or procedures, communicating with other HCPs (not separately reported), independently interpreting results (not separately reported), communicating results to the patient/family/caregiver, and care coordination (not separately reported). ASSESSMENT/PLAN: 1. Permanent atrial fibrillation (HCC) - ICD9: 427.31, ICD10: I48.21 (primary diagnosis) Asymptomatic; treatment strategy is rate control and stroke prevention 2. At risk for stroke - ICD9: V15.89, ICD10: Z91.89 CHADS2-Vasc Score Breakdown 4 Total Score 2 Age >= 75 years old 1 History of CHF 1 History of hypertension 3. Anticoagulant long-term use - ICD9: V58.61, ICD10: Z79.01 Indication: stroke prevention atrial fibrillation; seems to have favorable risk:benefit 4. Bradycardia - ICD9: 427.89, ICD10: R00.1 5. Presence of cardiac pacemaker - ICD9: V45.01, ICD10: Z95.0 Normal function, implant site looks fine 6. PVC (premature ventricular contraction) - ICD9: 427.69, ICD10: I49.3 Not presently a symptomatic issue 7. Cardiomyopathy, nonischemic (HCC) - ICD9: 425.4, ICD10: I42.8 8. Chronic combined systolic and diastolic congestive heart failure (HCC) - ICD9: 428.42, 428.0, ICD10: I50.42 9. S/P MVR (mitral valve replacement) - ICD9: V43.3, ICD10: Z95.[address] Contreras IMPRESSION: Mr. Duarte seems to be stable from a heart rhythm and pacemaker standpoint. The pacemaker is showing normal function, the implant site looks fine by examination today. PLAN AND RECOMMENDATIONS: Continue with current plan of care from EP standpoint. He will continue to follow up with [facility] under my supervision. Return in about 1 year (around 08/21/2023) for Dr. Jaramillo, same day Device Clinic. Franklin Jaramillo MD 08/21/2022 Medical Decision Making: Problems: Moderate: 2+ stable chronic illnesses Data: Unique source(s) for external note(s) reviewed: 1 Unique test result(s) reviewed: 2 Unique test(s) ordered: 1 Risk: Moderate: Moderate risk from testing/treatment and Drug management Medical Decision Making Level: 4 - Moderate documented in this encounter [facility] 08-13-2022 Miscellaneous Notes Pharmacy verified in [facility] Patient has been identified by name and date of : Yes Patient aware RX will be sent to pharmacy. No need to notify patient. Patient phones for refill(s): Requested Prescriptions Pending Prescriptions Disp Refills atorvastatin (LIPITOR) 20 mg tablet 90 tablet 2 Sig: Take 1 tablet by mouth once daily. Date of last office visit : 05/27/2022 Labs-03/07/22 Date of next office visit : 08/22/2022 Last 2 Encounter Wt Readings: Date: Wt: 05/27/2022 80 kg (176 lb 6.4 oz) 05/14/2022 81.1 kg (178 lb 12.8 oz) Please advise. Darlene Mata Pss documented in this encounter [facility] 08-09-[address] [facility] Ambulatory Pharmacy Anticoagulation Clinic Anticoagulation Episode Summary Anticoagulation Care Providers Provider Role Specialty Phone number Macey Lee MD [facility] Internal Medicine [phone] Gagandeep Marion Duarte is a 76 year old year old male patient being evaluated today for a Telemanagement visit. Patient is currently on the following anticoagulant(s) Warfarin. Labs PT INR (no units) Date Value 08/08/2022 2.5 08/09/2021 1.7 01/25/2021 3.4 (BioTel) INR Home CoaguChek (no units) Date Value 08/08/2022 2.5 07/18/2022 2.2 06/28/2022 2.9 Hemoglobin (g/dL) Date Value 03/07/2022 12.3 07/09/2021 12.7 Hematocrit (%) Date Value 03/07/2022 36.4 07/09/2021 39.1 Platelet Count (k/uL) Date Value 03/07/2022 139 07/09/2021 142 Creatinine (mg/dL) Date Value 03/07/2022 1.23 03/04/2022 1.22 01/19/2022 1.17 07/09/2021 1.19 07/03/2020 1.09 04/28/2020 0.94 Bilirubin, Total (mg/dL) Date Value 03/07/2022 0.6 04/28/2020 1.2 ALT (U/L) Date Value 03/07/2022 10 04/28/2020 13 AST (U/L) Date Value 03/07/2022 26 04/28/2020 28 Estimated Creatinine Clearance: 54.3 mL/min (A) (based on SCr of 1.23 mg/dL (H)). ALLERGIES No Known Allergies Indication for Warfarin: S/p mvr (mitral valve replacement) Anticoagulant long-term use Anticoagulation Episode Summary Current INR goal: 2.5-3.5 Assessment: INR result of 2.5 is therapeutic Plan: Current Warfarin Dosing As of 08/09/2022 Full warfarin instructions: 5 mg every Cassie; 2.5 mg all other days; Starting 08/09/2022 Called and spoke to patient/caregiver Patient states he has been taking 5.5mg on and was thinking about increasing to 6mg since INR is low therapeutic Advised patient to increase total weekly regimen Next lab INR check scheduled on 08/30/2022 Patient verbalizes understanding of the plan. Patient denies need for refills. Deisy Naylor RPh Clinical Pharmacist, Pharmacy Anticoagulation Clinic Pharmacy Anticoagulation Clinic Pager: [phone]. documented in this encounter [facility] 08-08-2022 Miscellaneous Notes Gagandeep Duarte was called, left VM at [phone] (home/cell) and reminded to test INR today or as soon as possible. Maryan Berumen RPh Patient was due to test INR today will continue to monitor for results. Mireya Madsen PharmD documented in this encounter [facility] 07-18-[address] [facility] Anticoagulation Clinic Anticoagulation Episode Summary Anticoagulation Care Providers Provider Role Specialty Phone number Macey Lee MD Responsible Internal Medicine [phone] Gagandeep Duarte is a 76 year old year old male patient being evaluated today for a Telemanagement visit. Patient is currently on the following anticoagulant(s) Warfarin. Labs PT INR (no units) Date Value 08/09/2021 1.7 01/25/2021 3.4 (BioTel) 11/02/2020 3.2 INR Home CoaguChek (no units) Date Value 07/18/2022 2.2 06/28/2022 2.9 06/17/2022 4.9 Hemoglobin (g/dL) Date Value 03/07/2022 12.3 07/09/2021 12.7 Hematocrit (%) Date Value 03/07/2022 36.4 07/09/2021 39.1 Platelet Count (k/uL) Date Value 03/07/2022 139 07/09/2021 142 Creatinine (mg/dL) Date Value 03/07/2022 1.23 03/04/2022 1.22 01/19/2022 1.17 07/09/2021 1.19 07/03/2020 1.09 04/28/2020 0.94 Bilirubin, Total (mg/dL) Date Value 03/07/2022 0.6 04/28/2020 1.2 ALT (U/L) Date Value 03/07/2022 10 04/28/2020 13 AST (U/L) Date Value 03/07/2022 26 04/28/2020 28 Estimated Creatinine Clearance: 54.3 mL/min (A) (based on SCr of 1.23 mg/dL (H)). ALLERGIES No Known Allergies Indication for Warfarin: S/p mvr (mitral valve replacement) Anticoagulant long-term use Anticoagulation Episode Summary Current INR goal: 2.5-3.5 Assessment: INR result of 2.2 is therapeutic Plan: Current Warfarin Dosing As of 07/18/2022 Full warfarin instructions: 07/18: 5 mg; Otherwise 5 mg every Cassie; 2.5 mg all other days; Starting 07/18/2022 Called and spoke to patient/caregiver Advised patient to increase total weekly regimen Next home INR check scheduled on 08/01/2022 Patient verbalizes understanding of the plan. Patient denies need for refills. Maryan Berumen RPh Clinical Pharmacist, Pharmacy Anticoagulation Clinic Pharmacy Anticoagulation Clinic Pager: [phone]. documented in this encounter [facility] 07-01-[address] [facility] Anticoagulation Clinic Anticoagulation Episode Summary Anticoagulation Care Providers Provider Role Specialty Phone number Macey Lee MD Responsible Internal Medicine [phone] Gagandeep Duarte is a 76 year old year old male patient being evaluated today for a Telemanagement visit. Patient is currently on the following anticoagulant(s) Warfarin. Labs PT INR (no units) Date Value 08/09/2021 1.7 01/25/2021 3.4 (BioTel) 11/02/2020 3.2 INR Home CoaguChek (no units) Date Value 06/28/2022 2.9 06/17/2022 4.9 05/31/2022 4.6 Estimated Creatinine Clearance: 54.3 mL/min (A) (based on SCr of 1.23 mg/dL (H)). ALLERGIES No Known Allergies Indication for Warfarin: Anticoagulation Episode Summary Current INR goal: 2.5-3.5 Assessment: INR result of 2.9 is therapeutic Plan: Current Warfarin Dosing As of 07/01/2022 Full warfarin instructions: 2.5 mg every day; Starting 07/01/2022 Called and spoke to patient/caregiver Advised patient to continue current weekly dose as noted above Next INR check due on 07/22/2022 Patient verbalizes understanding of the plan. Husam Chilel RPh Clinical Pharmacist, Pharmacy Anticoagulation Clinic Pharmacy Anticoagulation Clinic Pager: [phone]. documented in this encounter [facility] 06-17-[address] [facility] Pharm[facility] Anticoagulation Clinic Anticoagulation Episode Summary Anticoagulation Care Providers Provider Role Specialty Phone number Macey Lee MD Responsible Internal Medicine [phone] Gagandeep Duarte is a 76 year old year old male patient being evaluated today for a Telemanagement visit. Patient is currently on the following anticoagulant(s) Warfarin. Labs PT INR (no units) Date Value 08/09/2021 1.7 01/25/2021 3.4 (BioTel) 11/02/2020 3.2 INR Home CoaguChek (no units) Date Value 06/17/2022 4.9 05/31/2022 4.6 05/14/2022 3.5 Estimated Creatinine Clearance: 54.3 mL/min (A) (based on SCr of 1.23 mg/dL (H)). ALLERGIES No Known Allergies Indication for Warfarin: Anticoagulation Episode Summary Current INR goal: 2.5-3.5 Assessment: INR result of 4.9 is SUPRAtherapeutic due to: No obvious cause, and despite patient taking a lower dosage than we had previously instructed. Patient reports taking (3 mg, then 2.5 mg, then 2.5 mg, then 2.5 mg repeating every 4 days) for the past two weeks. Plan: Current Warfarin Dosing As of 06/17/2022 Full warfarin instructions: 06/17: Hold; Otherwise 2.5 mg every day Called and spoke to patient/caregiver Advised patient to hold 1 dose then decrease current regimen Next INR check due on 06/24/2022 Patient verbalizes understanding of the plan. Husam Chilel RPh Clinical Pharmacist, Pharmacy Anticoagulation Clinic Pharmacy Anticoagulation Clinic Pager: [phone]. documented in this encounter [facility] 06-07-2022 Miscellaneous Notes Patient due to test INR today. Will continue to monitor for results. Deisy Naylor RPh documented in this encounter [facility] 06-04-2022 Miscellaneous Notes Last OV: 05/27/22 Next OV: N/A documented in this encounter [facility] 06-04-2022 Miscellaneous Notes Patient's request for medication is as follows: Requested Prescriptions Pending Prescriptions Disp Refills carvedilol (COREG) 3.125 mg tablet 180 tablet 3 Sig: Take 1 tablet by mouth twice daily. Last seen 04/01/2022 in [facility]. Follow up scheduled for 10/14/2022. Prescription(s) as above. Please process accordingly. Erin Way LPN documented in this encounter [facility] 05-31-[address] [facility] Anticoagulation Clinic Anticoagulation Episode Summary Anticoagulation Care Providers Provider Role Specialty Phone number Macey Lee MD Responsible Internal Medicine [phone] Gagandeep Marion Duarte is a 76 year old year old male patient being evaluated today for a Telemanagement visit. Patient is currently on the following anticoagulant(s) Warfarin. Labs PT INR (no units) Date Value 08/09/2021 1.7 01/25/2021 3.4 (BioTel) 11/02/2020 3.2 INR Home CoaguChek (no units) Date Value 05/31/2022 4.6 05/14/2022 3.5 04/20/2022 3.8 Hemoglobin (g/dL) Date Value 03/07/2022 12.3 07/09/2021 12.7 Hematocrit (%) Date Value 03/07/2022 36.4 07/09/2021 39.1 Platelet Count (k/uL) Date Value 03/07/2022 139 07/09/2021 142 Creatinine (mg/dL) Date Value 03/07/2022 1.23 03/04/2022 1.22 01/19/2022 1.17 07/09/2021 1.19 07/03/2020 1.09 04/28/2020 0.94 Bilirubin, Total (mg/dL) Date Value 03/07/2022 0.6 04/28/2020 1.2 ALT (U/L) Date Value 03/07/2022 10 04/28/2020 13 AST (U/L) Date Value 03/07/2022 26 04/28/2020 28 Estimated Creatinine Clearance: 54.3 mL/min (A) (based on SCr of 1.23 mg/dL (H)). ALLERGIES No Known Allergies Indication for Warfarin: S/p mvr (mitral valve replacement) Anticoagulant long-term use Anticoagulation Episode Summary Current INR goal: 2.5-3.5 Assessment: INR result of 4.6 is SUPRAtherapeutic due to: unknown cause - did not speak to patient Plan: Current Warfarin Dosing As of 05/31/2022 Full warfarin instructions: 05/31: Hold; Otherwise 3 mg every day Left voice message Advised patient to hold 1 dose then continue current regimen Next home INR check scheduled on 06/07/2022 Deisy Naylor RPh Clinical Pharmacist, Pharmacy Anticoagulation Clinic Pharmacy Anticoagulation Clinic Pager: [phone]. documented in this encounter [facility] 05-28-2022 Miscellaneous Notes Patient calls in to review lab results. Reviewed Negative for Influenza A & B and Positive for Covid. Reviewed Care Advice and Medications prescribed at 05/28/2022. Patient verbalizes understanding and will phone back with any further questions. Barb Aleman RN documented in this encounter [facility] 05-28-2022 History of Presen t illness Narrative Radiology Service Progress Note PATIENT NAME: Gagandeep Duarte DATE OF SERVICE: May 28, 2022 TIME: 11:36 AM PATIENT IDENTITY VERIFICATION COMPLETED USING TWO (2) IDENTIFIERS: Name and Date of confirmed by patient verbally. FALL SCREENING: Has the patient had 2 falls in the last year or 1 fall with injury or currently using an Ambulatory Assistive Device (Walker, Cane, Wheelchair, Crutches, etc.)? No PATIENT GENDER DATA: Male PATIENT RELEVANT IMPLANT DATA REVIEWED: Not Applicable RADIOLOGY DEPARTMENT: General X-ray: Exam(s) Completed: Chest X-Ray PERIPHERAL IV DATA: Not applicable SIGNED BY: RT Pepito(R) May 28, 2022 11:36 AM documented in this encounter [facility] 05-27-2022 History of Presen t illness Narrative CC: Patient presents with: Cough: Fri05/17/22 started with cough. Persistent for last 10 days. Non-productive. Sunday 05/20 fatigue started and has progressed with body aches. HPI Gagandeep Duarte is a 76 year old male who presents today for cough fatigue body aches and chills. Symptoms began 10 days ago with a nonproductive cough which he feels hasgotten worse. Also reports post nasal drip that he has to clear his throat with often and makes the cough worse at night if he lays flat. Has had chills a few times but no fever. Is very fatigued and has body aches. No known exposure to illness and has not tried any thing over the counter to alleviate his symptoms. Denies sore throat, nausea, vomiting, diarreha, chest pain, edema, palpitations, sinus pressure, or increase in chronic shortness of breath on exertion. Does have a history of interstitial lung disease without any increase in symptoms and does not require an emergency inhaler for this. REVIEW OF SYSTEMS General: no fevers, no chills, no night sweats, no recurrent infections, no change in appetite, no change in energy, and no significant changes in weight HEENT: no frequent or significant headaches, no changes in hearing, no visual changes, no nose bleeds Respiratory:no wheezing, no shortness of breath, no hemoptysis Cardiovascular: no chest pain, no chest pressure, no palpitations, and no swelling GI: See HPI Skin: Negative for lesions, rash, and itching Neurologic: No headache, weakness, numbness, tingling, dizziness, syncope. PAST MEDICAL HISTORY Diagnosis Date Anxiety Anxiety and depression 12/26/2014 At risk for stroke Back pain Bradycardia CHF (congestive heart failure) (HCC) Dyspepsia Fracture History of sick sinus syndrome Hyperlipidemia 05/03/2015 Hypertension 12/26/2014 Hypogonadism in male Inguinal hernia Mitral valve regurgitation [place] valve replacement 1989 Panic attacks Permanent atrial fibrillation (HCC) atrial fibrillation diagnosed 2008, permanent by 2017 Pneumonia As a child Posterior vitreous detachment - Both Eyes 07/26/2014 Presence of cardiac pacemaker Medtronic dual-chamber pacemaker implanted 11/2016; indication: symptomatic sick sinus syndrome S/P MVR (mitral valve replacement) 12/02/[address] patient has a [place] valve in 1989. On coumadin since. He needs to be in the 2.5 to 3.5. He has been on 2.5 on all days except Friday and sat of 3.0. 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 Shoulder impingement 01/06/2014 Verruca vulgaris PAST SURGICAL HISTORY Procedure Laterality Date BACK SURGERY HX 2007 lower back surgery BASIC PACEMAKER DUAL CHAMBER Left 11/11/2016 Medtronic dual-chamber pacemaker; indication: symptomatic sick sinus syndrome CARDIAC CATH 04/28/2020 moderate 60% disease of LAD; moderate LV systolic dysfunction ECHO TRANSESOPHAG CONGEN PROBE [facility] IMGNG I&R 05/18/2020 see report; notable for moderate LV systolic dysfxn, LVEF 35% ECHOCARDIOGRAM 01/31/2020 mild LV systolic dysfxn; LVEF 51% EPS: VT ABLATION 09/22/2017 PVC RF catheter ablation at aortomitral continuity and junction of L/R coronary cusps HEART VALVE REPLACEMENT 1989 MVR (mechanical SJM) PHARMACOLOGIC NUCLEAR STRESS 03/06/2020 no ischemia; small region of scar in RCA territory; mild to moderate LV systolic dysfunction, LVEF 43% RPR 1ST INGUN HRNA AGE 3 YRS/> REDUCIBLE 2011 Hernia repair, inguinal ALLERGIES Patient has no known allergies. MEDICATIONS warfarin (COUMADIN) 3 mg tablet^Take as directed by [facility].^Disp: 30 tablet^Rfl: 5 potassium chloride (K-TAB) 10 mEq tablet^Take 1 tablet by mouth daily with breakfast.^Disp: 90 tablet^Rfl: 3 PARoxetine (PAXIL) 10 mg tablet^Take 1 tablet by mouth once daily.^Disp: 90 tablet^Rfl: 1 warfarin (COUMADIN) 2.5 mg tablet^Take 1 tablet by mouth once daily. Take as directed by the Coumadin Clinic^Disp: 30 tablet^Rfl: 5 lisinopril (ZESTRIL, PRINIVIL) 5 mg tablet^Take 2 tablets by mouth once daily.^Disp: 180 tablet^Rfl: 3 torsemide (DEMADEX) 20 mg tablet^Take 1 tablet by mouth once daily^Disp: 90 tablet^Rfl: 3 carvedilol (COREG) 3.125 mg tablet^Take 1 tablet by mouth twice daily.^Disp: 180 tablet^Rfl: [address] (PROTONIX) 40 mg tablet^Take 1 tablet by mouth once daily. Take on empty stomach, 1/2 hr before meal.^Disp: 60 tablet^Rfl: 0 sildenafil (VIAGRA) 25 mg tablet^Take 1 tablet by mouth as needed.^Disp: 9 tablet^Rfl: 3 atorvastatin (LIPITOR) 20 mg tablet^Take 1 tablet by mouth once daily.^Disp: 90 tablet^Rfl: 2 FAMILY HISTORY Problem Relation Age of Onset Diabetes Mother Diabetes Maternal Grandmother Diabetes Maternal Grandfather Social History Tobacco Use Smoking status: Never Smokeless tobacco: Never Vaping Use Vaping Use: Never used Substance Use Topics Alcohol use: No Drug use: No PHYSICAL EXAM BP 110/56 Pulse (!) 53 Temp 36 C (96.8 F) Ht 182.9 cm (6') Wt 80 kg (176 lb 6.4 oz) SpO2 95% BMI 23.92 kg/m General Appearance: well appearing, in no acute distress, alert Skin: Skin color, texture, turgor normal for age; Eyes: conjunctiva pink and moist, no icterus, sclera white, non-injected Ears: external ears normal to inspection and palpation, canals clear, Left tympanic membrane normal. , Right tympanic membrane normal Nose/sinus: Nares normal. Septum midline. Mucosa normal. No drainage. No sinus tenderness Neck: Thyroid normal size and symmetric without palpable nodules, No adenopathy Oropharynx: tongue midline and normal, soft palate, uvula, and tonsils normal, post nasal drainage noted to posterior pharynx with slight amount of erythema. Lymph nodes: No cervical lymphadenopathy and No supraclavicular lymphadenopathy Lungs: No rhonchi or rales. Faint wheezing noted to RUL posteriorly with auscultation Heart: RRR without murmur, gallop, or rubs. No ectopy Health maintenance reviewed with patient: HEPATITIS C SCREENING Never done SHINGRIX VACCINE(2 of 3) due on 07/12/2013 DTAP,TDAP,TD(1 - Tdap) due on 07/06/2020 ADVANCE DIRECTIVE DISCUSSION Never done COVID-19 VACCINE(5 - Booster for Pfizer series) due on 01/12/2022 INFLUENZA(1) due on 04/11/2022 ANNUAL PCP TEAM CHRONIC DISEASE VISIT due on 05/02/2023 DIABETES SCREEN due on 03/07/2025 PNEUMOCOCCAL: 65+ Completed DATA REVIEWED: No new labs ASSESSMENT/PLAN: 1. Acute cough - ICD9: 786.2, ICD10: R05.1 (primary diagnosis) - possibly from post nasal drainage so will treat with Augmentin for sinusitis along with flonase, especially since patient also has fatigue and chills that is continuing for 10 days - patient declines something for cough at this time - has never needed an emergency inhaler and does not feel his breathing is different from typical - XR CHEST 2V FRONTAL/LAT - COVID WITH FLUA+B, ROUTINE 2. Other fatigue - ICD9: 780.79, ICD10: R53.83 As above - XR CHEST 2V FRONTAL/LAT - COVID WITH FLUA+B, ROUTINE 3. Acute non-recurrent sinusitis, unspecified location - ICD9: 461.9, ICD10: J01.90 See #1 - COVID WITH FLUA+B, ROUTINE 4. Chills - ICD9: 780.64, ICD10: R68.83 See #1 - XR CHEST 2V FRONTAL/LAT - COVID WITH FLUA+B, ROUTINE 5. Body aches - ICD9: 780.96, ICD10: R52 - COVID WITH FLUA+B, ROUTINE 6. Wheezing - ICD9: 786.07, ICD10: R06.2 Xr chest Prescription instructions reviewed with patient as applicable. Potential red flag symptoms discussed with the patient. Reviewed appropriate action plan to take if red flag symptoms occur. Patient agreeable to treatment plan. Neeta Bowman APRN.CNP documented in this encounter [facility] 05-16-[address] [facility]ulatory Pharmacy Anticoagulation Clinic Anticoagulation Episode Summary Anticoagulation Care Providers Provider Role Specialty Phone number Macey Lee MD Responsible Internal Medicine [phone] Gagandeep Marion Duarte is a 76 year old year old male patient being evaluated today for a Telemanagement visit. Patient is currently on the following anticoagulant(s) Warfarin. Labs PT INR (no units) Date Value 08/09/2021 1.7 01/25/2021 3.4 (BioTel) 11/02/2020 3.2 INR Home CoaguChek (no units) Date Value 05/14/2022 3.5 04/20/2022 3.8 03/31/2022 1.9 Hemoglobin (g/dL) Date Value 03/07/2022 12.3 07/09/2021 12.7 Hematocrit (%) Date Value 03/07/2022 36.4 07/09/2021 39.1 Platelet Count (k/uL) Date Value 03/07/2022 139 07/09/2021 142 Creatinine (mg/dL) Date Value 03/07/2022 1.23 03/04/2022 1.22 01/19/2022 1.17 07/09/2021 1.19 07/03/2020 1.09 04/28/2020 0.94 Bilirubin, Total (mg/dL) Date Value 03/07/2022 0.6 04/28/2020 1.2 ALT (U/L) Date Value 03/07/2022 10 04/28/2020 13 AST (U/L) Date Value 03/07/2022 26 04/28/2020 28 Estimated Creatinine Clearance: 54.3 mL/min (A) (based on SCr of 1.23 mg/dL (H)). ALLERGIES No Known Allergies Indication for Warfarin: S/p mvr (mitral valve replacement) Anticoagulant long-term use Anticoagulation Episode Summary Current INR goal: 2.5-3.5 Assessment: INR result of 3.5 is therapeutic Plan: Current Warfarin Dosing As of 05/13/2022 Full warfarin instructions: 3 mg every day Called and spoke to patient/caregiver Advised patient to continue current weekly dose as noted above Next home INR check scheduled on 05/28/2022 Patient verbalizes understanding of the plan. Patient denies need for refills. Maryan Berumen RPh Clinical Pharmacist, Pharmacy Anticoagulation Clinic Pharmacy Anticoagulation Clinic Pager: [phone]. Patient was due to test INR today. Will continue to monitor for results. documented in this encounter [facility] 05-14-2022 History of Presen t illness Narrative Radiology Service Progress Note PATIENT NAME: Gagandeep Duarte DATE OF SERVICE: May 14, 2022 TIME: 4:25 PM PATIENT IDENTITY VERIFICATION COMPLETED USING TWO (2) IDENTIFIERS: Name and Date of confirmed by patient verbally. FALL SCREENING: Has the patient had 2 falls in the last year or 1 fall with injury or currently using an Ambulatory Assistive Device (Walker, Cane, Wheelchair, Crutches, etc.)? No PATIENT GENDER DATA: Male PATIENT RELEVANT IMPLANT DATA REVIEWED: Not Applicable RADIOLOGY DEPARTMENT: General X-ray: Exam(s) Completed: Spine X-Ray(s): Thoracic and Lumbar AP / LAT / L5-S1 PERIPHERAL IV DATA: Not applicable SIGNED BY: RT Sarbjit(R) May 14, 2022 4:25 PM documented in this encounter [facility] 05-14-2022 History of Presen t illness Narrative Images from the original note were not included. 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 Gagandeep is both RF - 9 (12/17/2021) and CCP - 13.5 (12/17/2021) negative. His most recent OSCAR was positive (12/17/2021). 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 Had a visit to express care on 10/27 for ? Urticarial itchy rash over arms, back, prescribed prednisone and triamcinolone. He mentions having bruises all over his body He always wears long sleeve shirts and is good about putting sunblock on his hands. Does not apply on his face. He has changed his diet and endorses choking sensation with some difficulty swallowing Reports this has been ongoing since about 10-15 years This is more with swallowing big pieces. No testing performed from swallowing perspective in the past. In the past 6 months he feels tighter in his throat near the larynx area. Has lower extremity edema occasionally in the calf area-reports it has not been bad lately Puts compression socks on Has been put on torsemide for swelling for about 5 years + raynaud's for few years now-hands and feet No digital ulcers Has not been prescribed any medications + muscle cramps in his legs especially in the morning Has been noticing difficulty getting out of a chair since about a year or so Denies any upper extremity weakness that he has noticed Denies any weight loss. No joint pain Denies any calcinosis or lumps Health maintenance: Cscope: few years ago-not sure of exact dates PSA levels have been normal Family hx: Father had Rheumatoid arthritis No malignancy in parents INTERVAL HISTORY Had a fall in the [place], was trying to clear the fallen trees, was using a chainsaw and was in a awkward position, landed on a tree root and fell on his back; Back is bruised He has soreness over his lumbar spine He stopped taking Esbriet for about 1 month now mainly due to side effects -lightheadedness, lack of energy, unable to sleep ; Now that he has stopped it he has noted a resolution of those symptoms He also had a rash in his lower neck in the past, no new rashes that he has noticed in the interim No muscle weakness No new weight loss No lymphadenopathy Swallowing is okay Muscle aches are gone as well Patient-Entered Data PAIN EVALUATION No data found in the last 1 encounters. PROMIS Assessments PROMIS Assessments 01/17/2022 03/29/2022 04/30/2022 Physical Health Percentile - 31 % 31 % Mental Health Percentile - 19 % 26 % Pain Score - 4 4 Pain Interference Percentile 38 % - - Fatigue Percentile 24 % - - Physical Function Percentile 24 % - - RAPID 3 Snider Activities of Daily Living 01/17/2022 8:57 AM Dress self? With SOME difficulty Get in and out of bed? With SOME difficulty Walk outdoors? Without ANY difficulty Wash and dry body? Without ANY difficulty Get in and out of car? Without ANY difficulty RAPID 3 Disease Activity Weighed Score Levels: 0 - 1: Near Remission 1.3 - 2.0: Low Severity 2.3 - 4.0: Moderate Severity 4.3 - 10.0: High Severity RAPID-3 Weighed Score 01/17/2022 RAPID 3 Weighed Score 1.67 (Low Severity (LS)) Past Medical History PAST MEDICAL HISTORY Diagnosis Date Anxiety Anxiety and depression 12/26/2014 At risk for stroke Back pain Bradycardia CHF (congestive heart failure) (HCC) Dyspepsia Fracture History of sick sinus syndrome Hyperlipidemia 05/03/2015 Hypertension 12/26/2014 Hypogonadism in male Inguinal hernia Mitral valve regurgitation [employer] valve replacement 1989 Panic attacks Permanent atrial fibrillation (HCC) atrial fibrillation diagnosed 2008, permanent by 2016 Pneumonia As a child Posterior vitreous detachment - Both Eyes 07/26/2014 Presence of cardiac pacemaker Medtronic dual-chamber pacemaker implanted 11/2016; indication: symptomatic sick sinus syndrome S/P MVR (mitral valve replacement) 12/02/[address] patient has a [employer] Angelo valve in 1989. On coumadin since. He needs to be in the 2.5 to 3.5. He has been on 2.5 on all days except Friday and sat of 3.0. 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 Shoulder impingement 01/06/2014 Verruca vulgaris Past Surgical History PAST SURGICAL HISTORY Procedure Laterality Date BACK SURGERY HX 2007 lower back surgery BASIC PACEMAKER DUAL CHAMBER Left 11/11/2016 Medtronic dual-chamber pacemaker; indication: symptomatic sick sinus syndrome CARDIAC CATH 04/28/2020 moderate 60% disease of LAD; moderate LV systolic dysfunction [facility] 05/18/2020 see report; notable for moderate LV systolic dysfxn, LVEF 35% ECHOCARDIOGRAM 01/31/2020 mild LV systolic dysfxn; LVEF 51% EPS: VT ABLATION 09/22/2017 PVC RF catheter ablation at aortomitral continuity and junction of L/R coronary cusps HEART VALVE REPLACEMENT 1989 MVR (mechanical SJM) PHARMACOLOGIC NUCLEAR STRESS 03/06/2020 no ischemia; small region of scar in RCA territory; mild to moderate LV systolic dysfunction, LVEF 43% RPR 1ST INGUN HRNA AGE 3 YRS/> REDUCIBLE 2012 Hernia repair, inguinal Family History FAMILY HISTORY Problem Relation Age of Onset Diabetes Mother Diabetes Maternal Grandmother Diabetes Maternal Grandfather Social History Social History Tobacco Use Smoking status: Never Smokeless tobacco: Never Vaping Use Vaping Use: Never used Substance Use Topics Alcohol use: No Drug use: No Current Medications Current Outpatient Medications on File Prior to Visit Medication Sig warfarin (COUMADIN) 2.5 mg tablet Take 1 tablet by mouth once daily. Take as directed by the Coumadin Clinic lisinopril (ZESTRIL, PRINIVIL) 5 mg tablet Take 2 tablets by mouth once daily. torsemide (DEMADEX) 20 mg tablet Take 1 tablet by mouth once daily pirfenidone (ESBRIET) 267 mg capsule Days 1 to 7: 267 mg 3 times daily (total dose: 801 mg/day)\ Days 8 to 14: 534 mg 3 times daily (total dose: 1,602 mg/day) Day 15 and thereafter: 801 mg 3 times daily (total dose: 2,403 mg/day) PARoxetine (PAXIL) 10 mg tablet Take 1 tablet by mouth once daily. carvedilol (COREG) 3.125 mg tablet Take 1 tablet by mouth twice daily. pantoprazole DR (PROTONIX) 40 mg tablet Take 1 tablet by mouth once daily. Take on empty stomach, 1/2 hr before meal. sildenafil (VIAGRA) 25 mg tablet Take 1 tablet by mouth as needed. atorvastatin (LIPITOR) 20 mg tablet Take 1 tablet by mouth once daily. potassium chloride (K-TAB) 10 mEq tablet Take 1 tablet by mouth daily with breakfast. warfarin (COUMADIN) 3 mg tablet Take as directed by [facility]. Current Facility-Administered Medications on File Prior to Visit Medication perflutren lipid microspheres 1.3 mL in NaCl (PF) 0.9% 10 mL injection (DEFINITY) sodium chloride 0.9 % (flush) 10 mL (BD POSIFLUSH) Objective Labs CBC Latest Ref Rng & Units 12/17/2021 01/19/2022 03/04/2022 03/07/2022 WBC 3.70 - 11.00 k/uL 8.37 7.70 7.99 6.25 HGB 13.7 - 17.5 g/dL - - - - HEMOGLOBIN 13.0 - 17.0 g/dL 12.9(L) 12.3(L) 13.0 12.3(L) HEMATOCRIT 39.0 - 51.0 % 40.6 38.4(L) 39.4 36.4(L) PLATELETS 150 - 400 k/uL 152 139(L) 166 139(L) ABS NEUT (ANC) 1.45 - 7.50 k/uL 5.09 5.05 4.92 3.94 ABS LYMPH 1.00 - 4.00 k/uL 1.98 1.49 1.83 1.36 CMP Latest Ref Rng & Units 01/19/2022 03/04/2022 03/07/2022 03/07/2022 SODIUM 136 - 144 mmol/L 138 140 139 - POTASSIUM 3.7 - 5.1 mmol/L 4.2 5.0 4.5 - CHLORIDE 97 - 105 mmol/L 102 102 103 - CO2 22 - 30 mmol/L 25 31(H) 27 - GLUCOSE 74 - 99 mg/dL 113(H) 67(L) 99 - BUN 9 - 24 mg/dL 33(H) 30(H) 34(H) - CREATININE 0.73 - 1.22 mg/dL 1.17 1.22 1.23(H) - CREATININE (POCT) 0.7 - 1.4 mg/dL - - - - CALCIUM, TOTAL 8.5 - 10.2 mg/dL 9.4 9.6 8.7 - AST 14 - 40 U/L 25 27 26 - ALT 10 - 54 U/L 10 10 10 - ALKALINE PHOSPHATASE 38 - 113 U/L 174(H) 203(H) 200(H) 200(H) ESR, WSR Latest Ref Rng & Units 10/29/2021 WSR 0 - 15 mm/hr 2 CK Latest Ref Rng & Units 05/26/2015 12/29/2015 12/17/2021 03/07/2022 CK 51 - 298 U/L 82 83 50(L) 44(L) RF and CCP Latest Ref Rng & Units 12/17/2021 RHEUMATOID FACTOR <16 IU/mL <10 CCP ANTIBODY IGG QUALITATIVE Negative Negative CCP ANTIBODY, IGG <20 Units <15 Antibodies Latest Ref Rng & Units 08/09/2021 12/17/2021 12/17/2021 12/17/2021 OSCAR Negative - - Negative - OSCAR BY EIA, QUAL Negative - - Positive(A) - DNA ANTIBODY W/CONFIRMATION <30 IU/mL - - 12.23 - LABOR DELIVERY RN ANTIBODY QUAL Negative - - Negative Negative SSA ANTIBODY QUAL Negative - - Negative Negative GAIL-1 ANTIBODY, IGG <1.0 AI - - <0.2 <0.2 GAIL 1 ANTIBODY QUAL Negative - - Negative Negative IA-2 ANTIBODY Negative - Negative - - PL-7 ANTIBODY Negative - Negative - - PL-12 ANTIBODY Negative - Negative - - P155/140 ANTIBODY Negative - Negative - - EJ ANTIBODY Negative - Negative - - SRP ANTIBODY Negative - Negative - - OJ ANTIBODY Negative - Negative - - SAE1 ANTIBODY Negative - Negative - - NXP-2 ANTIBODY Negative - Positive(A) - - MDA5 ANTIBODY Negative - Negative - - TIF-1 GAMMA ANTIBODY Negative - Negative - - RIBOSOMAL LABOR DELIVERY RN AB <1.0 AI - - 0.2 0.2 RIBOSOMAL LABOR DELIVERY RN QUAL Negative - - Negative Negative ANTI-SSA <1.0 AI - - 0.2 0.2 ANTI-SSB <1.0 AI - - <0.2 <0.2 ANTI-SM <1.0 AI - - <0.2 <0.2 SM ANTIBODY Negative - - Negative Negative SCL-70 AB QUAL Negative - - Negative Negative SCL-70 ABS, EIA <1.0 AI - - <0.2 <0.2 CENTROMERE AB <1.0 AI - - <0.2 <0.2 CENTROMERE AB QUAL Negative - - Negative Negative CHROMATIN AB <1.0 AI - - <0.2 <0.2 CHROMATIN AB QUAL Negative - - Negative Negative PT SEC 9.7 - 13.0 sec - - - - PT INR - 1.7 - - - PTT 23.0 - 32.4 sec - - - - ANCA Latest Ref Rng & Units 12/17/2021 P-ANCA FLUORESCENCE Negative Negative C-ANCA FLUORESCENCE Negative Negative Urinalysis Latest Ref Rng & Units 04/08/2017 PROTEIN UA (POCT) Neg mg/dL Negative GAIL-1 (HISTIDYL-TRNA SYNTHETASE) AB, IGG 0 - 40 AU/mL 1 Comment: INTERPRETIVE INFORMATION: Gail-1 Antibody, IgG 29 AU/mL or less.........Negative 30-40 AU/mL..............Equivocal 41 AU/mL or greater......Positive Presence of Gail-1 (antihistidyl transfer RNA [t-RNA] synthetase) antibody is associated with polymyositis and may also be seen in patients with dermatomyositis. Gail-1 antibody is associated with pulmonary involvement (interstitial lung disease), Raynaud phenomenon, arthritis, and senior mechanical designer's hands (implicated in antisynthetase syndrome). Mi-2 (nuclear helicase protein) Antibody Negative Negative PL-7 (THREONYL-TRNA SYNTHETASE) ANTIBODY Negative Negative PL-12 (ALANYL-TRNA SYNTHETASE) ANTIBODY Negative Negative P155/140 Antibody Negative Negative Comment: Performed by [facility], [address] [place] [id number] [email or web address], Lizabeth Gómez MD, Lab. Director EJ (GLYCYL-TRNA SYNTHETASE) ANTIBODY Negative Negative SRP (SIGNAL RECOGNITION PARTICLE) AB Negative Negative OJ (ISOLEUCYL-TRNA SYNTHETASE) ANTIBODY Negative Negative SAE1 (SUMO activating enzyme) Ab Negative Negative MDA5 (CADM-140) Ab Negative Negative NXP2 (Nuclear matrix protein-2) Ab Negative Positive Abnormal TIF-1 gamma (155 kDa) Ab Negative Negative MYOSITIS INTERPRETIVE INFORMATION See Note Comment: INTERPRETIVE INFORMATION: Dermatomyositis and Polymyositis Imaging Last XR Chest - Impression Only XR CHEST 2V FRONTAL/LAT Exam End: 10/29/2021 11:33 AM (Final result) Impression: IMPRESSION: 1. Continued interval decrease in right infrahilar opacity. 2. Otherwise, stable prominence of the right greater than left interstitial markings. 3. Stable cardiomediastinal silhouette. ... Echo: 10/01/2021 CONCLUSIONS: - Exam indication: Routine surveillance of prosthetic valve (>3yrs) - The left ventricle is normal in size. Left ventricular systolic function is mildly decreased. EF = 50 5% (visual est.) Left ventricular diastolic function was not evaluated due to mitral valve surgery. - The right ventricle is dilated. Right ventricular systolic function is mildly decreased. - The right atrial cavity is dilated. - The visualized aorta is dilated with a maximal dimension of 4.2 cm. - [employer] prosthetic mitral valve. There is trace (trace - 1+) mitral valve regurgitation. The peak gradient is 10 mmHg and the mean gradient is 3 mmHg. - Exam was compared with the prior echocardiographic exam performed on 01/31/2020, no significant change. Health Maintenance Current Immunizations Reviewed on 03/21/2022 Name Date COVID-19 vaccine, monovalent (PFIZER-BIONTLocation) 11/17/2021 , 05/09/2021 , 10/04/2020 , 09/08/2020 , 09/08/2020 INFLUENZA 04/28/2019 , 03/11/2019 , 04/23/2018 , 04/07/2017 , 04/07/2017 , 03/30/2016 , 05/11/2015 , 05/17/2013 Influenza 05/27/2014 , 05/07/2010 , 05/07/2010 , 05/07/2010 PNEUMOCOCCAL (PPSV) 07/27/2010 , 07/27/2010 , 07/27/2010 PNEUMOCOCCAL VAC CONJUGATE 05/03/2015 TETANUS DIPHTHERIA (TD) 07/05/2020 VARICELLA-ZOSTER (SHINGLES) 05/17/2013 influenza, high-dose, quadrivalent 05/09/2021 , 05/19/2020 Physical Exam BP 135/68 Pulse (!) 52 Temp 36.3 C (97.4 F) (Temporal) Wt 81.1 kg (178 lb 12.8 oz) BMI 24.25 kg/m GENERAL: Well appearing, sitting in chair, in NAD. HEENT: EOMI, no scleral icterus, oropharynx clear, NECK: No cervical LAD, or thyromegaly. CV: Normal rate, regular rhythm , No murmur PULM: Normal WOB and RR on RA. Lung bach CTA bilaterally without appreciable wheezes or crackles. SKIN: Warm, dry, large bruise noted over lumbar area with possible hematoma, NEURO: AOx3. Mental status and speech normal. Motor: 5/5 strength in all muscle groups except 4+/5 in prox thighs assessed in upper and lower extremities.. Gait: Normal PSYCH: Pleasant mood, appropriate affect. MSK: No joint swelling, deformities No calcinosis Impression and Plan (W19.XXXA) Fall, initial encounter (primary encounter diagnosis) (J84.9) ILD (interstitial lung disease) ([facility]) (R74.8) Alkaline phosphatase elevation + NXP Ab positive Long standing MCDONALD, recent diagnosis of Intersitial lung disease-UIP pattern, mild symptoms Other features: Raynaud's, reports mild rash over face, occasional dysphagia, mild muscle weakness in LE proximal (normal CK, Aldolase normal), edema (multifactorial), myalgias On exam today nailfold capillaroscopy with few dilated capillaries XR esophagogram normal Ct Abd/pelvis for malignancy screening negative No skin rashes today -Off esbriet Will monitor for new symptoms or progression for now Muscle strength intact #Recent fall Large bruises over lower back present Was trying to cut fall tree root and had a fall over his back We discussed utilizing a medical alert device-he will think about it Check XR thoracic and lumbar spine to rule out compression fractures He is not in need of any medications for pain control Natalia Gaffney MD Rheumatology documented in this encounter [facility] 05-02-2022 Miscellaneous Notes Received message from [facility] indication Patient advised stopped therapy dur to side effects. We have discharged from [facility] today. Noted.- danielle Izabella oMta [phone] ext [phone] Shay Tejeda documented in this encounter [facility] 05-02-2022 History of Presen t illness Narrative Reason for Visit Patient presents with: Recheck: 6 month Gagandeep Marion Duarte is a 76 year old male who presents here today for Above Complaints.. Health Maintenance HEPATITIS C SCREENING SHINGRIX VACCINE(2 of 3) DTAP,TDAP,TD(1 - Tdap) ADVANCE DIRECTIVE DISCUSSION COVID-19 VACCINE(5 - Booster for Pfizer series) INFLUENZA(1) HPI Patient has pulmonary interstitial fibrosis. He was tried on the esbriet, but he just could not tolerate it. Even at one pill a day, it made him worse, interm of his ability for regular normal life, so he stopped it. He is in pulm rehab and it does help him some with his rehab with his sob. Life is back to new baseline. Emotionally he struggles with his issues. Patient had his cataracts fixed in the past spring. He has some dry eyes recently. He has some lubricating drops that he has occasionally He recently got a cold sore.. He has not been eating well, he is trying to improve on that though, he is doing good the past couple weeks. Sleeping pretty good right now. Patient notes he is in process of improving his eating. He hopes to make things fairly easy. He gets really hungry right now. He is on paxil and does not need to increase it His alp was elevated, and gi thinks it is congestive, so nothing of concern. No problem-specific Assessment & Plan notes found for this encounter. PAST MEDICAL HISTORY Diagnosis Date Anxiety Anxiety and depression 12/26/2014 At risk for stroke Back pain Bradycardia CHF (congestive heart failure) (HCC) Dyspepsia Fracture History of sick sinus syndrome Hyperlipidemia 05/03/2015 Hypertension 12/26/2014 Hypogonadism in male Inguinal hernia Mitral valve regurgitation [employer] [place] valve replacement 1989 Panic attacks Permanent atrial fibrillation (HCC) atrial fibrillation diagnosed 2008, permanent by 2016 Pneumonia As a child Posterior vitreous detachment - Both Eyes 07/26/2014 Presence of cardiac pacemaker Medtronic dual-chamber pacemaker implanted 11/2016; indication: symptomatic sick sinus syndrome S/P MVR (mitral valve replacement) 12/02/[address] patient has a [employer] Angelo valve in 1989. On coumadin since. He needs to be in the 2.5 to 3.5. He has been on 2.5 on all days except Friday and sat of 3.0. 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 Shoulder impingement 01/06/2014 Verruca vulgaris PAST SURGICAL HISTORY Procedure Laterality Date BACK SURGERY HX 2007 lower back surgery BASIC PACEMAKER DUAL CHAMBER Left 11/11/2016 Medtronic dual-chamber pacemaker; indication: symptomatic sick sinus syndrome CARDIAC CATH 04/28/2020 moderate 60% disease of LAD; moderate LV systolic dysfunction [facility] 05/18/2020 see report; notable for moderate LV systolic dysfxn, LVEF 35% ECHOCARDIOGRAM 01/31/2020 mild LV systolic dysfxn; LVEF 51% EPS: VT ABLATION 09/22/2017 PVC RF catheter ablation at aortomitral continuity and junction of L/R coronary cusps HEART VALVE REPLACEMENT 1989 MVR (mechanical SJM) PHARMACOLOGIC NUCLEAR STRESS 03/06/2020 no ischemia; small region of scar in RCA territory; mild to moderate LV systolic dysfunction, LVEF 43% RPR 1ST INGUN HRNA AGE 3 YRS/> REDUCIBLE 2012 Hernia repair, inguinal FAMILY HISTORY Problem Relation Age of Onset Diabetes Mother Diabetes Maternal Grandmother Diabetes Maternal Grandfather Social History Tobacco Use Smoking status: Never Smokeless tobacco: Never Vaping Use Vaping Use: Never used Substance Use Topics Alcohol use: No Drug use: No Past medical history, appointments, medications, allergies reviewed. Pertinent Lab/Diagnostic Studies are reviewed and discussed today Current Outpatient Medications: warfarin (COUMADIN) 3 mg tablet potassium chloride (K-TAB) 10 mEq tablet PARoxetine (PAXIL) 10 mg tablet warfarin (COUMADIN) 2.5 mg tablet lisinopril (ZESTRIL, PRINIVIL) 5 mg tablet torsemide (DEMADEX) 20 mg tablet carvedilol (COREG) 3.125 mg tablet sildenafil (VIAGRA) 25 mg tablet atorvastatin (LIPITOR) 20 mg tablet pirfenidone (ESBRIET) [address] (PROTONIX) 40 mg tablet Current Facility-Administered Medications: perflutren lipid microspheres 1.3 mL in NaCl (PF) 0.9% 10 mL injection (DEFINITY) sodium chloride 0.9 % (flush) 10 mL (BD POSIFLUSH) Review of Systems CONSTITUTIONAL: No fevers, chills night sweats, unintended weight loss CARDIOVASCULAR: No chest pain, dyspnea, palpitations, orthopnea, PND, ankle edema. PULM: No dyspnea, unexplained cough. GI: No dysphagia/odynophagia, problematic reflux, constipation, diarrhea, changes in stool habits, hematochezia, melena. : No new urinary complaints, including dysuria, gross hematuria or pyuria. NEURO: No new balance problems, peripheral weakness/paresthesias or numbness of concern. Physical Exam BP 100/70 Pulse (!) 58 Temp 36.3 C (97.4 F) Resp 16 Wt 80.7 kg (178 lb) SpO2 96% BMI 24.14 kg/m General appearance: Well appearing, alert, in no acute distress, well nourished. Skin: Skin color, texture, turgor normal, no suspicious rashes or lesions Head: Normocephalic, no masses, lesions, tenderness or abnormalities Eyes: Anicteric sclera. Pupils are equally round and reactive to light. Extraocular movements are intact. Lungs: Lungs clear to auscultation. No wheezing, rhonchi, rales Heart: RRR without murmur, gallop, or rubs. Extremities: No deformities, edema, skin discoloration, clubbing or cyanosis. Good capillary refill. ASSESSMENT/PLAN: 1. ILD (interstitial lung disease) (HCC) - ICD9: 515, ICD10: J84.9 (primary diagnosis) New dx, on pulm rehab and is doing fairly well 2. Thrombocytopenia (HCC) - ICD9: 287.5, ICD10: D69.6 Stable 3. Permanent atrial fibrillation (HCC) - ICD9: 427.31, ICD10: I48.21 Stable, no changes to medication 4. Presence of cardiac pacemaker - ICD9: V45.01, ICD10: Z95.0 Stable 5. Cardiomyopathy, nonischemic (HCC) - ICD9: 425.4, ICD10: I42.8 Stable Macey Lee MD documented in this encounter [facility] 04-26-2022 Miscellaneous Notes Received fax from Izabella Barclay with [facility] [[phone]] stating: Patient advised stopped therapy due to side effects. - We discharged from [facility] today. Shay Tejeda Received a call from [facility] inquiring about patient's pirfenidone dosing. After reviewing patient's chart, admin informed pharmacy that we would have to call back with clarification after getting clinical guidance. Admin contacted Onel Zavala for guidance. Onel Zavala will consult with Dr. Sales before giving guidance. [facility] requests callback regarding Pirfenidone dosing plan PH: [phone] F: [phone] documented in this encounter [facility] 04-22-[address] [facility] Anticoagulation Episode Summary Anticoagulation Care Providers Provider Role Specialty Phone number Macey Lee MD Responsible Internal Medicine [phone] Gagandeep Marion Duarte is a 76 year old year old male patient being evaluated today for a Telemanagement visit. Patient is currently on the following anticoagulant(s) Warfarin. Labs PT INR (no units) Date Value 08/09/2021 1.7 01/25/2021 3.4 ([employer]) 11/02/2020 3.2 INR Home CoaguChek (no units) Date Value 04/20/2022 3.8 03/31/2022 1.9 03/10/2022 2.0 Estimated Creatinine Clearance: 54.3 mL/min (A) (based on SCr of 1.23 mg/dL (H)). ALLERGIES No Known Allergies Indication for Warfarin: Anticoagulation Episode Summary Current INR goal: 2.5-3.5 Assessment: INR result of 3.8 is SUPRAtherapeutic due to: No obvious cause Plan: Current Warfarin Dosing As of 04/22/2022 Full warfarin instructions: 04/22: 1.5 mg; Otherwise 3 mg every day Left voice message Advised patient to decrease dose for 1 day only then resume weekly regimen Next INR check due on 05/06/2022 Patient instructed to call [facility] at [phone] with any questions or concerns. Husam Chilel RPh Clinical Pharmacist, Pharmacy Anticoagulation Clinic [facility] Pager: [phone] documented in this encounter [facility] 04-19-2022 Miscellaneous Notes Patient has been identified by name and date of : Yes Patient phones for refill(s): Requested Prescriptions Pending Prescriptions Disp Refills warfarin (COUMADIN) 3 mg tablet Sig: Take as directed by [facility] Anticoagulation Clinic. Date of last office visit in primary care: 03/22/22 next apt 05/02/22 Last 2 Encounter Wt Readings: Date: Wt: 04/02/2022 80.8 kg (178 lb 3.2 oz) 04/01/2022 80 kg (176 lb 5.9 oz) Previous labs/tests for medication: Not applicable Thank you. Jillian Alexandra LPN documented in this encounter [facility] 04-16-2022 Miscellaneous Notes Spoke to patient. Clarified dosing. PATIENT CALL Patient called call center regarding question. Patient left message asking to speak to [facility] as he had a question about dosing. Patient can be reached at [phone] rGeg Wilson ([employer]) documented in this encounter [facility] 04-02-2022 History of Presen t illness Narrative NAME: Gagandeep uDarte AGE: [id number] year old Patient is referred in consultation by Natalia Gaffney for an opinion regarding abnormal liver test and my final recommendations will be communicated back to the requesting physician by way of shared Medical Record. PRESENTING COMPLAINT & HISTORY Gagandeep Duarte is a 76 year old year old male with past medical history significant for mitral regurgitation s/p replacement with mechanical valve on coumadin, dilated cardiomyopathy, and IPF on pirfenidone. Patient is here for elevated ALP. No previous liver disease. No hx of viral hepatitis. Does not drink alcohol. Medications reviewed. Family history of prostate cancer and bone cancer and breast cancer in the dad side. Patient is feeling fatigued and lack of energy, no reported weight loss, no B symptoms. No risk factors for metabolic syndrome. Patient never smoked. Patient was worked up for autoimmune diseases and tested positive for OSCAR and NXP Ab CT scan A/P 03/07/2022: Liver: No mass. Normal morphology. Biliary: No bile duct dilation. Gallbladder is unremarkable. Spleen: No mass. No splenomegaly. Component Latest Ref Rng & Units 10/01/2013 11/07/2016 10/05/2019 01/31/2020 04/28/2020 12/17/2021 01/19/2022 03/04/2022 03/07/2022 03/07/2022 10:31 AM 10:31 AM Albumin 3.9 - 4.9 g/dL 3.9 3.3 (L) 4.0 3.7 (L) 3.9 4.3 4.1 4.2 4.2 Bilirubin, Total 0.2 - 1.3 mg/dL 0.5 1.0 0.9 1.0 1.2 0.8 0.7 0.5 0.6 Alkaline Phosphatase 38 - 113 U/L 73 116 150 (H) 183 (H) 172 (H) 174 (H) 174 (H) 203 (H) 200 (H) 200 (H) AST 14 - 40 U/L 20 24 32 26 28 33 25 27 26 ALT 10 - 54 U/L 13 13 9 (L) 9 (L) 13 16 10 10 10 Component Latest Ref Rng & Units 03/07/2022 10:31 AM Alk Phos Bone % 10.7 - 68.3 % 23.2 Bone Fraction 12.9 - 52.6 U/L 46.4 Alk Phos Liver % 26.0 - 86.2 % 76.8 Liver Fraction 16.0 - 69.3 U/L 153.6 (H) Alk Phos Intestine % 0.0 - 24.2 % 0.0 Intestine Fraction 0.0 - 16.3 U/L 0.0 Echo 09/2021: - The left ventricle is normal in size. Left ventricular systolic function is mildly decreased. EF = 50 5% (visual est.) Left ventricular diastolic function was not evaluated due to mitral valve surgery. - The right ventricle is dilated. Right ventricular systolic function is mildly decreased. PAST SURGICAL HISTORY Procedure Laterality Date BACK SURGERY HX 2006 lower back surgery BASIC PACEMAKER DUAL CHAMBER Left 11/11/2016 Medtronic dual-chamber pacemaker; indication: symptomatic sick sinus syndrome CARDIAC CATH 04/28/2020 moderate 60% disease of LAD; moderate LV systolic dysfunction ECHO TRANSESOPHAG CONGEN PROBE [facility] I&R 05/18/2020 see report; notable for moderate LV systolic dysfxn, LVEF 35% ECHOCARDIOGRAM 01/31/2020 mild LV systolic dysfxn; LVEF 51% EPS: VT ABLATION 09/22/2017 PVC RF catheter ablation at aortomitral continuity and junction of L/R coronary cusps HEART VALVE REPLACEMENT 1989 MVR (mechanical SJM) PHARMACOLOGIC NUCLEAR STRESS 03/06/2020 no ischemia; small region of scar in RCA territory; mild to moderate LV systolic dysfunction, LVEF 43% RPR 1ST INGUN HRNA AGE 3 YRS/> REDUCIBLE 2011 Hernia repair, inguinal PAST MEDICAL HISTORY Diagnosis Date Anxiety Anxiety and depression 12/26/2014 At risk for stroke Back pain Bradycardia CHF (congestive heart failure) ([facility]) Dyspepsia Fracture History of sick sinus syndrome Hyperlipidemia 05/03/2015 Hypertension 12/26/2014 Hypogonadism in male Inguinal hernia Mitral valve regurgitation [place] valve replacement 1989 Panic attacks Permanent atrial fibrillation (HCC) atrial fibrillation diagnosed 2008, permanent by 2016 Pneumonia As a child Posterior vitreous detachment - Both Eyes 07/26/2014 Presence of cardiac pacemaker Medtronic dual-chamber pacemaker implanted 11/2016; indication: symptomatic sick sinus syndrome S/P MVR (mitral valve replacement) 12/02/[address] patient has a [place]o valve in 1989. On coumadin since. He needs to be in the 2.5 to 3.5. He has been on 2.5 on all days except Friday and sat of 3.0. 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 Shoulder impingement 01/06/2014 Verruca vulgaris Social History Tobacco Use Smoking status: Never Smokeless tobacco: Never Vaping Use Vaping Use: Never used Substance Use Topics Alcohol use: No Drug use: No Current Outpatient Medications Medication Sig Dispense Refill potassium chloride (K-TAB) 10 mEq tablet Take 1 tablet by mouth daily with breakfast. 90 tablet 3 PARoxetine (PAXIL) 10 mg tablet Take 1 tablet by mouth once daily. 90 tablet 1 warfarin (COUMADIN) 2.5 mg tablet Take 1 tablet by mouth once daily. Take as directed by the [facility]in Clinic 30 tablet 5 lisinopril (ZESTRIL, PRINIVIL) 5 mg tablet Take 2 tablets by mouth once daily. 180 tablet 3 torsemide (DEMADEX) 20 mg tablet Take 1 tablet by mouth once daily 90 tablet 3 pirfenidone (ESBRIET) 267 mg capsule Days 1 to 7: 267 mg 3 times daily (total dose: 801 mg/day)\ Days 8 to 14: 534 mg 3 times daily (total dose: 1,602 mg/day) Day 15 and thereafter: 801 mg 3 times daily (total dose: 2,403 mg/day) 180 capsule 11 carvedilol (COREG) 3.125 mg tablet Take 1 tablet by mouth twice daily. [address] (PROTONIX) 40 mg tablet Take 1 tablet by mouth once daily. Take on empty stomach, 1/2 hr before meal. 60 tablet 0 sildenafil (VIAGRA) 25 mg tablet Take 1 tablet by mouth as needed. 9 tablet 3 atorvastatin (LIPITOR) 20 mg tablet Take 1 tablet by mouth once daily. 90 tablet 2 warfarin (COUMADIN) 3 mg tablet Take as directed by [facility]. Current Facility-Administered Medications Medication Dose Route Frequency Provider Last Rate Last Admin perflutren lipid microspheres 1.3 mL in NaCl (PF) 0.9% 10 mL injection (DEFINITY) INTRAVENOUS DIRECTED PRN Jose Ramon Contreras MD sodium chloride 0.9 % (flush) 10 mL (BD POSIFLUSH) 10 mL INTRAVENOUS DIRECTED PRN Jose Ramon Contreras MD ALLERGIES Not on File FAMILY HISTORY Liver Problems: No Colitis: No Colon Cancer: No Other Cancers: as above FAMILY HISTORY Problem Relation Age of Onset Diabetes Mother Diabetes Maternal Grandmother Diabetes Maternal Grandfather GENERAL ROS Colon polyps: No Colon cancer: No Other cancer: No Radiation / Chemotherapy: No Crohn's disease / Ulcerative colitis: No High cholesterol or triglycerides: No Ulcers: No Gallstones: No Hepatitis / jaundice: No Heart Disease: Yes Lung Disease: Yes Liver problems: No Thyroid disease: No Kidney stones: No Pancreatitis: No Diabetes: No Arthritis: No Rheumatic fever: No Gastrointestinal bleeding: No Depression or other mental illness: No Other personal illness: No GI SPECIFIC ROS Difficulty swallowing / foods sticking in throat: No Heartburn: Yes Hoarseness: No Chronic cough: No Regurgitation: Yes Chest pain: No Filling up quickly at meals: No Loss of appetite: No Nausea: No Vomiting: No Abdominal pain: No Recent change in bowel movements: No Bloody or black, bowel movements: No Constipation: No Diarrhea: No Loss of control of bowel movements: No Night sweats, fever, chills: No Thought or memory problems: No Fluid in abdomen (ascites): No Prominent leg swelling: Yes Vomiting blood: No Recent change in weight: No PHYSICAL EXAMINATION There were no vitals taken for this visit. General Appearance: Well appearing, alert, in no acute distress, well-hydrated, well nourished. Eyes: PERRLA, conjunctiva and sclera normal Oropharynx: Lips, tongue, and oral mucosa normal. There is no thrush or oral ulcers. Lungs:breath sounds clear to auscultation bilaterally, no crackles, rhonchi, or wheezes Heart: regular rate and rhythm, no murmurs or gallops, mechanical valve. Abdomen: not distended, normal bowel sounds, soft and depressible, no guarding or rebound, no palpable mass, no organomegaly Extremities: no cyanosis or edema Skin: no jaundice, no spider angiomas, no palmar erythema Neuro:alert, oriented x 3, pleasant and in no acute distress Recent Labs: Hemoglobin (g/dL) Date Value 03/07/2022 12.3 07/09/2021 12.7 Hematocrit (%) Date Value 03/07/2022 36.4 07/09/2021 39.1 WBC (k/uL) Date Value 03/07/2022 6.25 07/09/2021 6.95 Glucose (mg/dL) Date Value 03/07/2022 99 07/09/2021 96 Potassium (mmol/L) Date Value 03/07/2022 4.5 07/09/2021 4.6 Sodium (mmol/L) Date Value 03/07/2022 139 07/09/2021 142 Chloride (mmol/L) Date Value 03/07/2022 103 07/09/2021 103 CO2 (mmol/L) Date Value 03/07/2022 27 07/09/2021 29 Creatinine (mg/dL) Date Value 03/07/2022 1.23 07/09/2021 1.19 BUN (mg/dL) Date Value 03/07/2022 34 07/09/2021 29 Anion Gap (mmol/L) Date Value 03/07/2022 9 07/09/2021 10 Calcium (mg/dL) Date Value 07/09/2021 9.2 Calcium, Total (mg/dL) Date Value 03/07/2022 8.7 Albumin (g/dL) Date Value 03/07/2022 4.2 Bilirubin, Total (mg/dL) Date Value 03/07/2022 0.6 Alkaline Phosphatase (U/L) Date Value 03/07/2022 200 (H) 03/07/2022 200 (H) AST (U/L) Date Value 03/07/2022 26 ALT (U/L) Date Value 03/07/2022 10 Protein, Total (g/dL) Date Value 03/07/2022 6.5 Recent Labs 03/31/22 1230 INR 1.9* Computed MELD-Na score unavailable. Necessary lab results were not found in the last year. Computed MELD score unavailable. Necessary lab results were not found in the last year. Assessment IMPRESSION 76 year old male patient with hx of systolic and diastolic heart failure, MR s/p mechanical valve replacement and IPF on pirfinidone for the last two months. Patient here for elevated ALP. Has normal liver function and normal looking CT scan. No personal history of malignancy or B symptoms. 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 Abigail Garvin MD April 02, 2022 2:15 PM Answers submitted by the patient for this visit: Review of Systems Gastroenterology (Submitted on 03/29/2022) Fever: No Chills: No Night Sweats: No Unitentional Weight Change: No A Cough: Yes Difficulty Breathing: Yes Chest Pain: No Belly pain: No A feeling of fullness or have belly pain after eating: No Food getting stuck in your throat or chest after eating: No Nausea - that is, a feeling like you could vomit: No Regurgitation - that is, food or liquid coming back up into your throat or mouth without vomiting, or feel burning behind your breast bone: No Loss of appetite: No To throw up or vomit: No Blood in your stools: No Black tarry stools: No Loose or watery stools: No The feeling like you need to empty your bowels right away - that is, feel as if you would have an accident: No Bowel incontinence - that is, have an accident because you cannot make it to the bathroom in time: No Problems with straining while having bowel movements , hard or lumpy stools, or feel unfinished (that you have not passed all your stool): No Pain in rectum or anus during bowel movements: No Problems with jaundice - that is, yellow discoloration of your skin or eyes, now or in the past: No Problems with having to flush the toilet more than two times due to oily stool, or see stool floating with oil: No Answers submitted by the patient for this visit: Review of Systems Gastroenterology (Submitted on 03/29/2022) Fever: No Chills: No Night Sweats: No Unitentional Weight Change: No A Cough: Yes Difficulty Breathing: Yes Chest Pain: No Belly pain: No A feeling of fullness or have belly pain after eating: No Food getting stuck in your throat or chest after eating: No Nausea - that is, a feeling like you could vomit: No Regurgitation - that is, food or liquid coming back up into your throat or mouth without vomiting, or feel burning behind your breast bone: No Loss of appetite: No To throw up or vomit: No Blood in your stools: No Black tarry stools: No Loose or watery stools: No The feeling like you need to empty your bowels right away - that is, feel as if you would have an accident: No Bowel incontinence - that is, have an accident because you cannot make it to the bathroom in time: No Problems with straining while having bowel movements , hard or lumpy stools, or feel unfinished (that you have not passed all your stool): No Pain in rectum or anus during bowel movements: No Problems with jaundice - that is, yellow discoloration of your skin or eyes, now or in the past: No Problems with having to flush the toilet more than two times due to oily stool, or see stool floating with oil: No documented in this encounter [facility] 04-01-2022 History of Presen t illness Narrative Images from the original note were not included. Jose Ramon Contreras MD Interventional Cardiology [facility] [address], [place] [address] [phone] Chief Complaint Patient presents with: Follow Up HISTORY OF PRESENT ILLNESS: Mr. Duarte is a 76 year old male seen in my office today for follow-up patient had prior history of mitral valve replacement with mechanical valve with dilated cardiomyopathy with marked improvement on medical treatment no signs or symptoms of congestive heart failure doing well from the cardiac point of view Patient was diagnosed with interstitial fibrosis followed by pulmonary He has no concern regarding his cardiac condition Apart from subtherapeutic INR Cardiac Risk Factors age (male over 45, female over 55), hyperlipidemia, hypertension, family history of CAD PAST MEDICAL HISTORY Diagnosis Date Anxiety Anxiety and depression 12/26/2014 At risk for stroke Back pain Bradycardia CHF (congestive heart failure) (HCC) Dyspepsia Fracture History of sick sinus syndrome Hyperlipidemia 05/03/2015 Hypertension 12/26/2014 Hypogonadism in male Inguinal hernia Mitral valve regurgitation [place]o valve replacement 1989 Panic attacks Permanent atrial fibrillation (HCC) atrial fibrillation diagnosed 2008, permanent by 2016 Pneumonia As a child Posterior vitreous detachment - Both Eyes 07/26/2014 Presence of cardiac pacemaker Medtronic dual-chamber pacemaker implanted 11/2016; indication: symptomatic sick sinus syndrome S/P MVR (mitral valve replacement) 12/02/2012 [address] patient has a [place] Angelo valve in 1989. On coumadin since. He needs to be in the 2.5 to 3.5. He has been on 2.5 on all days except Friday and sat of 3.0. 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 Shoulder impingement 01/06/2014 Verruca vulgaris PAST SURGICAL HISTORY Procedure Laterality Date BACK SURGERY HX 2007 lower back surgery BASIC PACEMAKER DUAL CHAMBER Left 11/11/2016 Medtronic dual-chamber pacemaker; indication: symptomatic sick sinus syndrome CARDIAC CATH 04/28/2020 moderate 60% disease of LAD; moderate LV systolic dysfunction ECHO TRANSESOPHAG CONGEN PROBE [facility] I&R 05/18/2020 see report; notable for moderate LV systolic dysfxn, LVEF 35% ECHOCARDIOGRAM 01/31/2020 mild LV systolic dysfxn; LVEF 51% EPS: VT ABLATION 09/22/2017 PVC RF catheter ablation at aortomitral continuity and junction of L/R coronary cusps HEART VALVE REPLACEMENT 1989 MVR (mechanical SJM) PHARMACOLOGIC NUCLEAR STRESS 03/06/2020 no ischemia; small region of scar in RCA territory; mild to moderate LV systolic dysfunction, LVEF 43% RPR 1ST INGUN HRNA AGE 3 YRS/> REDUCIBLE 2012 Hernia repair, inguinal FAMILY HISTORY Problem Relation Age of Onset Diabetes Mother Diabetes Maternal Grandmother Diabetes Maternal Grandfather Social History Tobacco Use Smoking status: Never Smokeless tobacco: Never Vaping Use Vaping Use: Never used Substance Use Topics Alcohol use: No Drug use: No ALLERGIES Not on File Medications: Current Outpatient Medications Medication Sig Dispense Refill potassium chloride (K-TAB) 10 mEq tablet Take 1 tablet by mouth daily with breakfast. 90 tablet 3 PARoxetine (PAXIL) 10 mg tablet Take 1 tablet by mouth once daily. 90 tablet 1 warfarin (COUMADIN) 2.5 mg tablet Take 1 tablet by mouth once daily. Take as directed by the [facility]madin Clinic 30 tablet 5 lisinopril (ZESTRIL, PRINIVIL) 5 mg tablet Take 2 tablets by mouth once daily. 180 tablet 3 torsemide (DEMADEX) 20 mg tablet Take 1 tablet by mouth once daily 90 tablet 3 pirfenidone (ESBRIET) 267 mg capsule Days 1 to 7: 267 mg 3 times daily (total dose: 801 mg/day)\ Days 8 to 14: 534 mg 3 times daily (total dose: 1,602 mg/day) Day 15 and thereafter: 801 mg 3 times daily (total dose: 2,403 mg/day) 180 capsule 11 carvedilol (COREG) 3.125 mg tablet Take 1 tablet by mouth twice daily. [address] (PROTONIX) 40 mg tablet Take 1 tablet by mouth once daily. Take on empty stomach, 1/2 hr before meal. 60 tablet 0 sildenafil (VIAGRA) 25 mg tablet Take 1 tablet by mouth as needed. 9 tablet 3 atorvastatin (LIPITOR) 20 mg tablet Take 1 tablet by mouth once daily. 90 tablet 2 warfarin (COUMADIN) 3 mg tablet Take as directed by [facility]. Current Facility-Administered Medications Medication Dose Route Frequency Provider Last Rate Last Admin perflutren lipid microspheres 1.3 mL in NaCl (PF) 0.9% 10 mL injection (DEFINITY) INTRAVENOUS DIRECTED PRN Jose Ramon Contreras MD sodium chloride 0.9 % (flush) 10 mL (BD POSIFLUSH) 10 mL INTRAVENOUS DIRECTED PRN Jose Ramon Contreras MD Review of Systems Constitutional: Negative for chills, diaphoresis, fever, malaise/fatigue and weight loss. HENT: Negative for congestion, ear discharge, ear pain, hearing loss, nosebleeds, sinus pain, sore throat and tinnitus. Eyes: Negative for blurred vision, double vision, photophobia, pain, discharge and redness. Respiratory: Negative for cough, hemoptysis, sputum production, shortness of breath, wheezing and stridor. Cardiovascular: Negative for chest pain, palpitations, orthopnea, claudication, leg swelling and PND. Gastrointestinal: Negative for abdominal pain, blood in stool, constipation, diarrhea, heartburn, melena, nausea and vomiting. Genitourinary: Negative for dysuria, flank pain, frequency, hematuria and urgency. Musculoskeletal: Negative for back pain, falls, joint pain, myalgias and neck pain. Skin: Negative for itching and rash. Neurological: Negative for dizziness, tingling, tremors, sensory change, speech change, focal weakness, seizures, loss of consciousness, weakness and headaches. Endo/Heme/Allergies: Negative for environmental allergies and polydipsia. Does not bruise/bleed easily. Psychiatric/Behavioral: Negative for depression, hallucinations, memory loss, substance abuse and suicidal ideas. The patient is not nervous/anxious and does not have insomnia. Physical Examination: Vitals:BP 128/76 Pulse 62 Resp 18 Wt 176 lb 5.9 oz (80.0kg) BP w/Orthostatic Vitals Date and Time Orthostatic BP Orthostatic Pulse BP Pulse BP Position BP Site BP Cuff Size 04/01/22 1348 -- -- 128/76 62 Sitting Right Arm -- Peak Flow Date and Time PF Resp 04/01/22 1348 -- 18 Last 2 Encounter Wt Readings: Date: Wt: 04/01/2022 80 kg (176 lb 5.9 oz) 03/22/2022 80.7 kg (178 lb) Physical Exam Constitutional: General: He is not in acute distress. Appearance: He is not diaphoretic. HENT: Head: Normocephalic and atraumatic. Right Ear: External ear normal. Left Ear: External ear normal. Nose: Nose normal. Mouth/Throat: Pharynx: Oropharynx is clear. Eyes: General: Right eye: No discharge. Left eye: No discharge. Conjunctiva/sclera: Conjunctivae normal. Pupils: Pupils are equal, round, and reactive to light. Cardiovascular: Rate and Rhythm: Normal rate and regular rhythm. Heart sounds: Normal heart sounds, S1 normal and S2 normal. No murmur heard. No friction rub. No gallop. No S3 or S4 sounds. Pulmonary: Effort: Pulmonary effort is normal. No respiratory distress. Breath sounds: Normal breath sounds. No wheezing or rales. Chest: Chest wall: No tenderness. Musculoskeletal: General: Normal range of motion. Cervical back: Normal range of motion and neck supple. Skin: General: Skin is warm and dry. Neurological: Mental Status: He is alert and oriented to person, place, and time. Psychiatric: Mood and Affect: Mood normal. Thought Content: Thought content normal. Judgment: Judgment normal. Pertinent Labs: CBC: Hemoglobin (g/dL) Date Value 03/07/2022 12.3 07/09/2021 12.7 Hematocrit (%) Date Value 03/07/2022 36.4 07/09/2021 39.1 WBC (k/uL) Date Value 03/07/2022 6.25 07/09/2021 6.95 Platelet Count (k/uL) Date Value 03/07/2022 139 07/09/2021 142 BMP: Glucose (mg/dL) Date Value 03/07/2022 99 07/09/2021 96 Potassium (mmol/L) Date Value 03/07/2022 4.5 07/09/2021 4.6 Sodium (mmol/L) Date Value 03/07/2022 139 07/09/2021 142 Chloride (mmol/L) Date Value 03/07/2022 103 07/09/2021 103 CO2 (mmol/L) Date Value 03/07/2022 27 07/09/2021 29 Creatinine (mg/dL) Date Value 03/07/2022 1.23 07/09/2021 1.19 BUN (mg/dL) Date Value 03/07/2022 34 07/09/2021 29 Anion Gap (mmol/L) Date Value 03/07/2022 9 07/09/2021 10 Calcium (mg/dL) Date Value 07/09/2021 9.2 Calcium, Total (mg/dL) Date Value 03/07/2022 8.7 INR: Recent Labs 03/31/22 1230 INR 1.9* Lipid Profile: Cholesterol, Total Date Value Ref Range Status 07/03/2020 114 <200 mg/dL Final Comment: <200 mg/dL, Desirable 200-239 mg/dL, Borderline high >239 mg/dL, High HDL Cholesterol Date Value Ref Range Status 07/03/2020 45 >39 mg/dL Final Comment: 40-59 mg/dL, Acceptable >59 mg/dL, High: Negative risk factor for coronary heart disease <40 mg/dL, Low: Positive risk factor for coronary heart disease LDL Cholesterol Date Value Ref Range Status 07/03/2020 58 <100 mg/dL Final Comment: <100 mg/dL, Optimal 100-129 mg/dL, Near optimal/above optimal 130-159 mg/dL, Borderline high 160-189 mg/dL, High >189 mg/dL, Very high Secondary prevention optimal LDL Cholesterol levels are recommended to be < 70 mg/dL Triglyceride Date Value Ref Range Status 07/03/2020 57 <150 mg/dL Final Comment: <150 mg/dL, Normal 150-199 mg/dL, Borderline high 200-499 mg/dL, High >499 mg/dL, Very high Hemoglobin A1C: No results found for: HGBA1C TSH: No results found for: TSHREFL Prior Cardiac Testing none Assessment and Plan: 76 years old gentleman status post mechanical mitral valve basement with congestive heart failure doing well from the cardiac point of view we will continue with current medical therapy Follow-up in 6 months Follow up plannin months Electronically signed by Jose Ramon Contreras MD on April 01, 2022, 2:20 PM The above note was partially created using a dictation recognition software. A reasonable attempt has been made to correct any errors. documented in this encounter [facility] 04-01-[address] [facility] Anticoagulation Episode Summary Anticoagulation Care Providers Provider Role Specialty Phone number Macey Lee MD Responsible Internal Medicine [phone] Gagandeep Marion Duarte is a 76 year old year old male patient being evaluated today for a Telemanagement visit. Patient is currently on the following anticoagulant(s) Warfarin. Labs PT INR (no units) Date Value 08/09/2021 1.7 01/25/2021 3.4 ([employer]) 11/02/2020 3.2 INR Home CoaguChek (no units) Date Value 03/31/2022 1.9 03/10/2022 2.0 02/24/2022 1.9 Estimated Creatinine Clearance: 52.4 mL/min (A) (based on SCr of 1.23 mg/dL (H)). ALLERGIES Not on File Indication for Warfarin: Anticoagulation Episode Summary Current INR goal: 2.5-3.5 Assessment: INR result of 1.9 is SUBtherapeutic due to: unknown cause - did not speak to patient Plan: Current Warfarin Dosing As of 04/01/2022 Full warfarin instructions: 3 mg every day Left voice message Advised patient to increase total weekly regimen Next INR check due on 04/22/2022 Patient instructed to call [facility] at [phone] with any questions or concerns. Husam Chilel RPh Clinical Pharmacist, Pharmacy Anticoagulation Clinic [facility] Pager: [phone] documented in this encounter [facility] 03-29-2022 History of Presen t illness Narrative Patient came for left ear lavage. States that he has been using OTC drops as recommended at last appt. Visualized TM and open canal at this time with no cerumen noted. No further action taken at this time. Dorota Jacobs LPN documented in this encounter [facility] 03-27-2022 Miscellaneous Notes Patient has been identified by name and date of : Yes Patient phones for refill(s): Requested Prescriptions Pending Prescriptions Disp Refills potassium chloride (K-TAB) 10 mEq tablet 90 tablet 3 Sig: Take 1 tablet by mouth daily with breakfast. Date of last office visit in primary care: 03/22/2022 6 month follow-up: 05/02/2022 Last 2 Encounter Wt Readings: Date: Wt: 03/22/2022 80.7 kg (178 lb) 03/21/2022 80.6 kg (177 lb 11.1 oz) Previous labs/tests for medication: Potassium: No components found for: POT Please advise. Thank you. Hilda Nicole LPN documented in this encounter [facility] 03-26-2022 Miscellaneous Notes Patient called regarding order placed by Dr. Sales for pulmonary rehab orders. Patient stated that he can get this done at [facility] near his home but they need additional information from Dr. Sales to do this. Admin contacted [facility] at [phone] to inquire and left voicemail requesting callback. Will send records once callback and records request is received. documented in this encounter [facility] 03-22-2022 Miscellaneous Notes Patient scheduled for nurse visit 03/29/22 to receive ear lavage. Please place order at this time. Dorota Jacobs LPN documented in this encounter [facility] 03-22-2022 History of Presen t illness Narrative CC: Patient presents with: Ear Problem: L ear, trouble hearing x 1 week HPI Gagandeep Marion Duarte is a 76 year old male who presents today for diffulty hearing of left ear he feels is realted to ear wax build up. Has a history of this so states he has ear drops at home (unsure on which kind) and has had to have ears irrigated before. Denies any other concerns. REVIEW OF SYSTEMS General: no fevers, no chills, no night sweats, no recurrent infections, no change in appetite, no change in energy, and no significant changes in weight HEENT: no frequent or significant headaches, no visual changes, no nose bleeds, no sinus or nasal problems Respiratory: no cough, no wheezing, no new shortness of breath, no hemoptysis Cardiovascular: no chest pain, no chest pressure, no palpitations, and no swelling Neurologic: No headache, weakness, numbness, tingling, dizziness, syncope. PAST MEDICAL HISTORY Diagnosis Date Anxiety Anxiety and depression 12/26/2014 At risk for stroke Back pain Bradycardia CHF (congestive heart failure) ([facility]) Dyspepsia Fracture History of sick sinus syndrome Hyperlipidemia 05/03/2015 Hypertension 12/26/2014 Hypogonadism in male Inguinal hernia Mitral valve regurgitation [place] Angelo valve replacement 1989 Panic attacks Permanent atrial fibrillation ([facility]) atrial fibrillation diagnosed 2008, permanent by 2016 Pneumonia As a child Posterior vitreous detachment - Both Eyes 07/26/2014 Presence of cardiac pacemaker Medtronic dual-chamber pacemaker implanted 11/2016; indication: symptomatic sick sinus syndrome S/P MVR (mitral valve replacement) 12/02/[address] patient has a [place] Angelo valve in 1989. On coumadin since. He needs to be in the 2.5 to 3.5. He has been on 2.5 on all days except Friday and sat of 3.0. 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 Shoulder impingement 01/06/2014 Verruca vulgaris PAST SURGICAL HISTORY Procedure Laterality Date BACK SURGERY HX 2007 lower back surgery BASIC PACEMAKER DUAL CHAMBER Left 11/11/2016 Medtronic dual-chamber pacemaker; indication: symptomatic sick sinus syndrome CARDIAC CATH 04/28/2020 moderate 60% disease of LAD; moderate LV systolic dysfunction ECHO TRANSESOPHAG CONGEN PROBE [facility] IMG I&R 05/18/2020 see report; notable for moderate LV systolic dysfxn, LVEF 35% ECHOCARDIOGRAM 01/31/2020 mild LV systolic dysfxn; LVEF 51% EPS: VT ABLATION 09/22/2017 PVC RF catheter ablation at aortomitral continuity and junction of L/R coronary cusps HEART VALVE REPLACEMENT 1989 MVR (mechanical SJM) PHARMACOLOGIC NUCLEAR STRESS 03/06/2020 no ischemia; small region of scar in RCA territory; mild to moderate LV systolic dysfunction, LVEF 43% RPR 1ST INGUN HRNA AGE 3 YRS/> REDUCIBLE 2012 Hernia repair, inguinal ALLERGIES Patient has no known allergies. MEDICATIONS PARoxetine (PAXIL) 10 mg tablet^Take 1 tablet by mouth once daily.^Disp: 90 tablet^Rfl: 1 warfarin (COUMADIN) 2.5 mg tablet^Take 1 tablet by mouth once daily. Take as directed by the [facility]^Disp: 30 tablet^Rfl: 5 lisinopril (ZESTRIL, PRINIVIL) 5 mg tablet^Take 2 tablets by mouth once daily.^Disp: 180 tablet^Rfl: 3 torsemide (DEMADEX) 20 mg tablet^Take 1 tablet by mouth once daily^Disp: 90 tablet^Rfl: 3 pirfenidone (ESBRIET) 267 mg capsule^Days 1 to 7: 267 mg 3 times daily (total dose: 801 mg/day)\ Days 8 to 14: 534 mg 3 times daily (total dose: 1,602 mg/day) Day 15 and thereafter: 801 mg 3 times daily (total dose: 2,403 mg/day)^Disp: 180 capsule^Rfl: 11 carvedilol (COREG) 3.125 mg tablet^Take 1 tablet by mouth twice daily.^Disp: 180 tablet^Rfl: [address] (PROTONIX) 40 mg tablet^Take 1 tablet by mouth once daily. Take on empty stomach, 1/2 hr before meal.^Disp: 60 tablet^Rfl: 0 sildenafil (VIAGRA) 25 mg tablet^Take 1 tablet by mouth as needed.^Disp: 9 tablet^Rfl: 3 atorvastatin (LIPITOR) 20 mg tablet^Take 1 tablet by mouth once daily.^Disp: 90 tablet^Rfl: 2 potassium chloride (K-TAB) 10 mEq tablet^Take 1 tablet by mouth daily with breakfast.^Disp: 90 tablet^Rfl: 3 warfarin (COUMADIN) 3 mg tablet^Take as directed by [facility].^Disp: ^Rfl: FAMILY HISTORY Problem Relation Age of Onset Diabetes Mother Diabetes Maternal Grandmother Diabetes Maternal Grandfather Social History Tobacco Use Smoking status: Never Smokeless tobacco: Never Vaping Use Vaping Use: Never used Substance Use Topics Alcohol use: No Drug use: No PHYSICAL EXAM BP 122/62 Pulse (!) 56 Resp 16 Wt 80.7 kg (178 lb) BMI 24.98 kg/m General Appearance: well appearing, in no acute distress, alert Skin: Skin color, texture, turgor normal for age; Eyes: conjunctiva pink and moist, no icterus, sclera white, non-injected Ears: external ears normal to inspection and palpation, canals clear, Right tympanic membrane normal with cerumen so not fully assessed Left cerumen impaction, tympanic unseen Nose/sinus: Nares normal. Septum midline. Mucosa normal. No drainage. Neck: Thyroid normal size and symmetric without palpable nodules, No adenopathy Oropharynx: lips normal without lesions, gums healthy, tongue midline and normal, soft palate, uvula, Lymph nodes: No cervical lymphadenopathy and No supraclavicular lymphadenopathy Lungs: Lungs clear to auscultation. No wheezing, rhonchi, rales. Heart: irregular rhythm with normal rate no gallop, or rubs. Health maintenance reviewed with patient: HEPATITIS C SCREENING Never done SHINGRIX VACCINE(2 of 3) due on 07/12/2013 DTAP,TDAP,TD(1 - Tdap) due on 07/06/2020 ADVANCE DIRECTIVE DISCUSSION Never done INFLUENZA(1) due on 04/11/2022 ANNUAL PCP TEAM CHRONIC DISEASE VISIT due on 03/06/2023 DIABETES SCREEN due on 03/07/2025 COVID-19 VACCINE Completed PNEUMOCOCCAL: 65+ Completed DATA REVIEWED: No new labs ASSESSMENT/PLAN: 1. Impacted cerumen of left ear - ICD9: 380.4, ICD10: H61.22 - unsuccessful with ear lavage in office. Will continue debrox drops and return for another lavage next week. If still unsuccessful patient will need to see ENT. Prescription instructions reviewed with patient as applicable. Potential red flag symptoms discussed with the patient. Reviewed appropriate action plan to take if red flag symptoms occur. Patient agreeable to treatment plan. Neeta Bowman APRN.CNP documented in this encounter [facility] 03-21-2022 Instructions Sameep MD Adama - 03/21/2022 2:33 PM EDT - decrease pirfenidone to 1 tab three times / day- let me know if the side effects persist - pulmonary rehab - please start close to home - hepatology follow up as planned for liver tests - Repeat breathing tests, walk in about 6 months - - return 6 month - virtual visit documented in this encounter [facility] 03-21-2022 Procedure note Associated Ord er(s): SIX MINUTE WALK RESPIRATORY THERAPY SIX MINUTE WALK TEST OXIMETRY REPORT Six Minute Walk Test for This Encounter Oxygen Device Liters FIO2 SpO2% HR Activity Feet Speed (MPH) Flag R/A 100 58 Resting R/A 100 70 Six Minute Walk 1135 2.1 R/A 100 64 Recovery 1 minute post R/A 100 50 Recovery 2 minute post R/A 100 58 Recovery 3 minute post General Information Height Weight Smoking Status Pulse Oximetry Site Oximeter Pre Blood Pressure Post Blood Pressure Total Time Spent (min) 179.8 cm (5' 10.79 ) 80.6 kg (177 lb 11.1 oz) Never Forehead Masimo 116/55 138/63 30 _ Distance Walked (meters) Distance Walked (feet) Male Predicted Walk Distance (feet) Male Lower Limit of Normal (feet) Male % Predicted Total Duration Of The Stops (seconds) 345.95 1135 1701.77 1199.77 66.7 -- _ Lowest SpO2 During 6 Minute Walk Pre-Nerissa Dyspnea Rating Pre-Nerissa Fatigue Rating Post Nerissa Dyspnea Rating Post Nerissa Fatigue Rating O2 Supply Carrier Walking Assistance/Device 98 % 1 2 2 3 -- None Six Minute Walk Trend (Previous Encounters) None SIGNATURE: Eitan Perez, VON PATIENT NAME: Gagandeep Duarte DATE: March 21, 2022 TIME: 1:04 PM (No note.) The patient completed the six minute walk test with No stops. . The patient required Room Air to complete the test. The distance the patient walked in six minutes is moderately reduced. This is the first time patient takes the six minute walk test. The patient perceived their dyspnea during the six minute walk test to be 2-Slight on the modified Nerissa scale. The patient perceived their fatigue during the six minute walk test to be 3-Moderate on the modified Nerissa scale. I have reviewed the findings and made appropriate revisions as needed. SIGNATURE: Geovanny Subramanian MD PATIENT NAME: Gagandeep Duarte DATE: March 21, 2022 TIME: 4:19 PM documented in this encounter [facility] 03-21-2022 History of Presen t illness Narrative Consultation requested by Dr. Funez for an opinion regarding ILD. My final recommendations will be communicated back to the requesting physician by way of shared Medical record or letter to requesting physician via US mail. Thank you for requesting the consult on Mr. Gagandeep Duarte. I saw him in my interstitial lung disease clinic. Please find my evaluation below. CHIEF COMPLAINT: Patient presents with: Recheck HISTORY OF PRESENT ILLNESS: Mr. Gagandeep Duarte who presents today for ILD Per initial HPI Dyspnea on exertion, slowly progressive over the past few years Fatigue and drowsiness during the day Cardiac work up was unrevealing , led to Chest CT which showed ILD He is Able to to walk a couple of blocks, trouble with 2 flight os steps Mild cough, worse at night , dry mostly Mild wheezing No chest pain No pedal edema No orthopnea C/o chronic fatigue, which is slightly better recently Snores at night, no apneic spells noted Continues to be quite active, takes the dog for a walk and go up inclines occasionally Dry mouth Pedal edema waxes and wanes Occasional dysphagia Raynaud's positive GERD- minimal symptoms, hoarse voice main symptom Denies dry eyes, dry mouth, oral/nasal ulcers, gastroesophageal reflux, joint pain or swelling, muscle pain or weakness, change in skin texture, rash or skin lesions, photosensitivity, alopecia Never smoker, no drug, no E cig use. 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 Dogs and cats at home. No hot tub at home. No feather products currently. Lives at home with his Hobbies include carpentry. Since last visit No change in dyspnea, cough Able to walk a couple of miles on flat ground Cannot go up oscar incline or carry anything heavy Dyspnea doesn't affect QOL much Cough is cough No muscle weakness or pain Stable weight and appetite No GI issues Started pirfenidone, increased to 3 tab TID- fatigue, no energy, lightheadedness On 2 Tab- TID- feeling better , but continues to have lightheadedness and low energy REVIEW OF SYSTEMS - 12 system ROS done, negative unless mentioned in HPI PAST MEDICAL HISTORY Diagnosis Date Anxiety Anxiety and depression 12/26/2014 At risk for stroke Back pain Bradycardia CHF (congestive heart failure) (HCC) Dyspepsia Fracture History of sick sinus syndrome Hyperlipidemia 05/03/2015 Hypertension 12/26/2014 Hypogonadism in male Inguinal hernia Mitral valve regurgitation St Angelo valve replacement 1989 Panic attacks Permanent atrial fibrillation (HCC) atrial fibrillation diagnosed 2008, permanent by 2016 Pneumonia As a child Posterior vitreous detachment - Both Eyes 07/26/2014 Presence of cardiac pacemaker Medtronic dual-chamber pacemaker implanted 11/2016; indication: symptomatic sick sinus syndrome S/P MVR (mitral valve replacement) 12/02/[address] patient has a [place] Angelo valve in 1989. On coumadin since. He needs to be in the 2.5 to 3.5. He has been on 2.5 on all days except Friday and sat of 3.0. 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 Shoulder impingement 01/06/2014 Verruca vulgaris PAST SURGICAL HISTORY Procedure Laterality Date BACK SURGERY HX 2007 lower back surgery BASIC PACEMAKER DUAL CHAMBER Left 11/11/2016 Medtronic dual-chamber pacemaker; indication: symptomatic sick sinus syndrome CARDIAC CATH 04/28/2020 moderate 60% disease of LAD; moderate LV systolic dysfunction ECHO TRANSESOPHAG CONGEN PROBE [facility] I&R 05/18/2020 see report; notable for moderate LV systolic dysfxn, LVEF 35% ECHOCARDIOGRAM 01/31/2020 mild LV systolic dysfxn; LVEF 51% EPS: VT ABLATION 09/22/2017 PVC RF catheter ablation at aortomitral continuity and junction of L/R coronary cusps HEART VALVE REPLACEMENT 1989 MVR (mechanical SJM) PHARMACOLOGIC NUCLEAR STRESS 03/06/2020 no ischemia; small region of scar in RCA territory; mild to moderate LV systolic dysfunction, LVEF 43% RPR 1ST INGUN HRNA AGE 3 YRS/> REDUCIBLE 2012 Hernia repair, inguinal ALLERGIES ALLERGIES No Known Allergies MEDICATIONS Current Outpatient Medications Medication Sig PARoxetine (PAXIL) 10 mg tablet Take 1 tablet by mouth once daily. warfarin (COUMADIN) 2.5 mg tablet Take 1 tablet by mouth once daily. Take as directed by the [facility] Clinic lisinopril (ZESTRIL, PRINIVIL) 5 mg tablet Take 2 tablets by mouth once daily. torsemide (DEMADEX) 20 mg tablet Take 1 tablet by mouth once daily pirfenidone (ESBRIET) 267 mg capsule Days 1 to 7: 267 mg 3 times daily (total dose: 801 mg/day)\ Days 8 to 14: 534 mg 3 times daily (total dose: 1,602 mg/day) Day 15 and thereafter: 801 mg 3 times daily (total dose: 2,403 mg/day) carvedilol (COREG) 3.125 mg tablet Take 1 tablet by mouth twice daily. pantoprazole DR (PROTONIX) 40 mg tablet Take 1 tablet by mouth once daily. Take on empty stomach, 1/2 hr before meal. sildenafil (VIAGRA) 25 mg tablet Take 1 tablet by mouth as needed. atorvastatin (LIPITOR) 20 mg tablet Take 1 tablet by mouth once daily. potassium chloride (K-TAB) 10 mEq tablet Take 1 tablet by mouth daily with breakfast. warfarin (COUMADIN) 3 mg tablet Take as directed by [facility]. Current Facility-Administered Medications Medication Dose Route Frequency perflutren lipid microspheres 1.3 mL in NaCl (PF) 0.9% 10 mL injection (DEFINITY) INTRAVENOUS DIRECTED PRN sodium chloride 0.9 % (flush) 10 mL (BD POSIFLUSH) 10 mL INTRAVENOUS DIRECTED PRN PHYSICAL EXAMINATION Physical Exam above was completed in entirety 03/21/22, and is unchanged from the last visit conducted by Nancy Sales MD Except where noted in bold BP 109/60 Pulse (!) 53 Temp 36.3 C (97.3 F) (Temporal) Resp 12 Wt 80.6 kg (177 lb 11.1 oz) SpO2 99% BMI 24.93 kg/m General: Well developed, well nourished ,in no apparent distress Head: Normal cephalic ENT: No sinus tenderness, Neck: Supple Chest: Normal vesicular breath sounds. No adventitial sounds heard. No respiratory distress or accessory muscle use Cardiac: Regular rate and rhythm Abdomen: Soft, non-tender, non-distended Extremities: No clubbing, cyanosis or edema Skin/hair: No rash or suspicious lesions. Neurologic: grossly normal DATA REVIEWED Labs: Latest Reference Range & Units 12/17/21 15:50 12/17/21 15:51 OSCAR Negative Negative OSCAR by EIA, Qual Negative Positive ! DNA Antibody w/Confirmation <30 IU/mL 12.23 Anti-LABOR DELIVERY RN <1.0 AI <1.0 AI <0.2 <0.2 Ribosomal LABOR DELIVERY RN Ab <1.0 AI <1.0 AI 0.2 0.2 Anti-SSB <1.0 AI <1.0 AI <0.2 <0.2 Anti-Sm <1.0 AI <1.0 AI <0.2 <0.2 Sm Antibody Negative Negative Negative Negative Anti-SSA <1.0 AI <1.0 AI 0.2 0.2 Scl-70 Abs, EIA <1.0 AI <1.0 AI <0.2 <0.2 Gail 1 Antibody <1.0 AI <1.0 AI <0.2 <0.2 Chromatin Ab <1.0 AI <1.0 AI <0.2 <0.2 Centromere Ab <1.0 AI <1.0 AI <0.2 <0.2 Rheumatoid Factor <16 IU/mL <10 c-ANCA Fluorescence Negative Negative p-ANCA Fluorescence Negative Negative Interpretation (ANCA) Negative for C-ANCA and P-ANCA by indirect immunofluorescence. Staff Review (ANCA) No review performed. CCP Antibody, IgG <20 Units <15 Gail-1 Antibody, IgG 0 - 40 AU/mL 1 Mi-[address] Antibody Negative Negative [address]-12 Antibody Negative Negative P155/140 Antibody Negative Negative EJ Antibody Negative Negative SRP Antibody Negative Negative OJ Antibody Negative Negative SAE1 Antibody Negative Negative NXP-2 Antibody Negative Positive ! MDA5 Antibody Negative Negative TIF-1 gamma Antibody Negative Negative Polymyositis Interpretation See Note Ribosomal LABOR DELIVERY RN Qualitative Negative Negative Negative Negative LABOR DELIVERY RN Antibody QUAL Negative Negative Negative Negative SSA Antibody Qual Negative Negative Negative Negative SSB Antibody Qual Negative Negative Negative Negative CENTROMERE AB QUAL Negative Negative Negative Negative Chromatin Ab Qual Negative Negative Negative Negative GAIL 1 ANTIBODY QUAL Negative Negative Negative Negative Scleroderma Ab Qual Negative Negative Negative Negative CCP Antibody IgG Qualitative Negative Negative !: Data is abnormal WBC (k/uL) Date Value 03/07/2022 6.25 RBC (m/uL) Date Value 03/07/2022 3.73 (L) Hemoglobin (g/dL) Date Value 03/07/2022 12.3 (L) Hematocrit (%) Date Value 03/07/2022 36.4 (L) MCV (fL) Date Value 03/07/2022 97.6 MCH (pg) Date Value 03/07/2022 33.0 MCHC (g/dL) Date Value 03/07/2022 33.8 RDW-CV (%) Date Value 03/07/2022 14.6 Platelet Count (k/uL) Date Value 03/07/2022 139 (L) MPV (fL) Date Value 03/07/2022 10.2 Neut% (%) Date Value 03/07/2022 63.0 Lymph% (%) Date Value 03/07/2022 21.8 [place]% (%) Date Value 03/07/2022 9.4 Eosin% (%) Date Value 07/09/2021 3.6 Baso% (%) Date Value 03/07/2022 1.0 Abs Neut (k/uL) Date Value 03/07/2022 3.94 Abs [place] (k/uL) Date Value 03/07/2022 0.59 Abs Eosin (k/uL) Date Value 03/07/2022 0.28 Abs Baso (k/uL) Date Value 03/07/2022 0.06 Glucose (mg/dL) Date Value 03/07/2022 99 BUN (mg/dL) Date Value 03/07/2022 34 (H) Creatinine (mg/dL) Date Value 03/07/2022 1.23 (H) Sodium (mmol/L) Date Value 03/07/2022 139 Potassium (mmol/L) Date Value 03/07/2022 4.5 Chloride (mmol/L) Date Value 03/07/2022 103 CO2 (mmol/L) Date Value 03/07/2022 27 Protein, Total (g/dL) Date Value 03/07/2022 6.5 Albumin (g/dL) Date Value 03/07/2022 4.2 Calcium, Total (mg/dL) Date Value 03/07/2022 8.7 Alkaline Phosphatase (U/L) Date Value 03/07/2022 200 (H) 03/07/2022 200 (H) Bilirubin, Total (mg/dL) Date Value 03/07/2022 0.6 AST (U/L) Date Value 03/07/2022 26 ALT (U/L) Date Value 03/07/2022 10 Pulmonary function tests: FEV1 2.42/80 FVC 3.02/73 FEV1/FVC 80 FEF 25-75 TLC 67 RV 72 DLCO 51 6MWD 1135 ft Lowest spo2 100 O2 needs RA Highest HR Imaging: Chest CT- IMPRESSION: Interstitial lung disease probably greater on the RIGHT. Localized honeycombing LEFT lung base. Right lower lobe groundglass airspace disease. Constellation of findings are most likely predominantly due to fibrosis. Alveolitis in the area of groundglass airspace disease cannot be excluded. Cardiomegaly Pericardial calcification. 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 Mild symptoms. DLCO at 50 %. Preserved FVC No significant exposures. Some autoimmune features- raynaud's GAP Score 5 On pirfenidone, trouble tolerating higher doses # R/O myositis- NXP2 ab positive, no symptoms or clinical features of myositis, saw rheumatology as well PLAN: - decrease pirfenidone to 1 tab TID due to adverse effects, will let me know if they persist and we can consider stopping - pulmonary rehab - close to home ordered - expressed interest in being considered for clinical trials today - hepatology follow up as planned for chronic elevated alk phos - Repeat PFTs, walk in about 6 months - - RTC 6 month - virtual visit after PFTs Orders Placed This Encounter ADULT - LUNG DIFFUSION CAPACITY (DLCO) Standing Status: Future Standing Expiration Date: 04/20/2023 Order Specific Question: Should this patient be seen in a Pediatric Lab? Answer: No ADULT - SPIROMETRY WITH DILATOR IF OBSTRUCTED Standing Status: Future Standing Expiration Date: 04/20/2023 Scheduling Instructions: Please call [phone] to schedule, cancel, or change an appointment. Order Specific Question: Should this patient be seen in a Pediatric Lab? Answer: No ADULT - SIX MINUTE WALK Standing Status: Future Standing Expiration Date: 04/20/2023 Order Specific Question: Should this patient be seen in a Pediatric Lab? Answer: No Thank you again for allowing me to participate in the care of Gagandeep Duarte along with you. Please do not hesitate to call me with any questions. Best Regards, Nancy Sales MD, FCCP Staff Physician Res[facility] [place] I spent 30 minutes on this encounter which includes time spent on face to face encounter, counseling and coordinating care regarding interpretation of symptoms and tests and diagnostic and therapeutic options and charting on the day of the visit. This note was generated with voice recognition software and may contain errors, including spelling, grammar, syntax and misrecognition of what was dictated, that are not fully corrected. documented in this encounter [facility] 03-18-2022 Miscellaneous Notes Left detailed message on MIGSIF. Please let patient know that this has been sent. Thank you Neeta Bowman APRN.EILEEN Patient is requesting an antibiotic to use prior to his dental visit on 03-18. Pharmacy is [facility] in [place]. documented in this encounter [facility] 03-11-[address] [facility] Ambulatory Pharmacy Anticoagulation Clinic Anticoagulation Episode Summary Anticoagulation Care Providers Provider Role Specialty Phone number Macey Lee MD [facility] Internal Medicine [phone] Gagandeep Marion Duarte is a 76 year old year old male patient being evaluated today for a Telemanagement visit. Patient is currently on the following anticoagulant(s) Warfarin. Labs PT INR (no units) Date Value 08/09/2021 1.7 01/25/2021 3.4 (BioTel) 11/02/2020 3.2 INR Home CoaguChek (no units) Date Value 03/10/2022 2.0 02/24/2022 1.9 02/07/2022 1.6 Estimated Creatinine Clearance: 54.3 mL/min (A) (based on SCr of 1.23 mg/dL (H)). ALLERGIES No Known Allergies Indication for Warfarin: Anticoagulation Episode Summary Current INR goal: 2.5-3.5 Assessment: INR result of 2.0 is SUBtherapeutic due to: unknown cause - did not speak to patient Plan: Current Warfarin Dosing As of 03/11/2022 Full warfarin instructions: 2.5 mg every Sun, Cassie; 3 mg all other days Left voice message Advised patient to increase total weekly regimen to 2.5 mg every Sun, Cassie; 3 mg all other days Next INR check due on 04/01/2022 Patient instructed to call [facility] at [phone] with any questions or concerns. Husam Chilel RPh Clinical Pharmacist, Pharmacy Antico[facility] Pager: [phone] documented in this encounter [facility] 03-08-2022 Miscellaneous Notes Patient has been identified by name and date of : Yes Patient phones for refill(s): Pending Prescriptions Disp Refills PAROXETINE 10 MG TABLET 90 tablet 1 Sig: Take 1 tablet by mouth once daily. NIVIA: No Date of last office visit in primary care: 03/06/2022 Last 2 Encounter Wt Readings: Date: Wt: 03/06/2022 80.3 kg (177 lb) 03/05/2022 80.7 kg (178 lb) Previous labs/tests for medication: Not applicable Please advise. Thank you. Flavia Colin LPN documented in this encounter [facility] 03-07-2022 History of Presen t illness Narrative Radiology Service Progress Note DATE OF SERVICE: March 07, 2022 TIME: 2:44 PM PATIENT IDENTITY VERIFICATION COMPLETED USING TWO (2) STANDARD IDENTIFIERS: Name and Date of confirmed by patient verbally. FALL SCREENING: Has the patient had 2 falls in the last year or 1 fall with injury or currently using an Ambulatory Assistive Device (Walker, Cane, Wheelchair, Crutches, etc.)? No PATIENT GENDER DATA: Male PATIENT RELEVANT IMPLANT DATA REVIEWED: Yes ALLERGIES: Reviewed and unchanged CONTRAST ALLERGY: NO. EXAM: CT -CONTRAST INDUCED NEPHROPATHY RISK FACTORS: Patient age > 60 years CREATININE: Creatinine Date Value Ref Range Status 03/07/2022 1.23 (H) 0.73 - 1.22 mg/dL Final 03/04/2022 1.22 0.73 - 1.22 mg/dL Final 01/19/2022 1.17 0.73 - 1.22 mg/dL Final Estimated Glomerular Filtration Rate Date Value Ref Range Status 03/07/2022 60 >=60 mL/min/1.73m Final Comment: Estimated Glomerular Filtration Rate (eGFR) is calculated using the 2020 CKD-EPI creatinine equation. This equation utilizes serum creatinine, sex, and age as parameters. The creatinine assay has traceable calibration to isotope dilution-mass spectrometry. Refer to KDIGO guidelines for clinical interpretation. In patients with unstable renal function, e.g. those with acute kidney injury, the eGFR may not accurately reflect actual GFR. eGFR- Date Value Ref Range Status 07/09/2021 >60 Final P.O.C.T. RESULTS: POC done: Yes, See Lab Tab March 07, 2022 TREATMENT: N/A PERIPHERAL IV DATA: Ambulatory: A peripheral IV was started in the Left antecubital site with a Angio cath: 22 gauge. RADIOLOGY DEPARTMENT: CT; Exam(s) Completed: Abdomen/Pelvis SIGNATURE: RT Mariano(R) PATIENT NAME: Gagandeep Duarte DATE: March 07, 2022 TIME: 2:44 PM documented in this encounter [facility] 03-06-2022 Instructions Pham Bowman APRN.CNP - 03/06/2022 12:53 PM EDT If any unusual pain, swelling, red streaks, pus, fever or other signs of worsening infection, call immediately. documented in this encounter [facility] 03-06-2022 History of Presen t illness Narrative CC: Patient presents with: Suture Removal HPI Gagandeep Duarte is a 76 year old male who presents today for ER follow-up. Facility: [facility] Date of visit: 02/28/22 Reason for visit: tripped on stairs and fell down two steps, striking left side of head on china cabinet. Hospital course: laceration left forehead closed with [address] head and neck negative. Current symptoms: patient is here today for suture removal. Denies headaches, dizziness, lightheadedness, confusion, disorientation, numbness/tingling, weakness, tremor, difficulty with coordination/balance REVIEW OF SYSTEMS See HPI PAST MEDICAL HISTORY Diagnosis Date Anxiety Anxiety and depression 12/26/2014 At risk for stroke Back pain Bradycardia CHF (congestive heart failure) ([facility]) Dyspepsia Fracture History of sick sinus syndrome Hyperlipidemia 05/03/2015 Hypertension 12/26/2014 Hypogonadism in male Inguinal hernia Mitral valve regurgitation St Angelo valve replacement 1989 Panic attacks Permanent atrial fibrillation ([facility]) atrial fibrillation diagnosed 2008, permanent by 2016 Pneumonia As a child Posterior vitreous detachment - Both Eyes 07/26/2014 Presence of cardiac pacemaker Medtronic dual-chamber pacemaker implanted 11/2016; indication: symptomatic sick sinus syndrome S/P MVR (mitral valve replacement) 12/02/[address] patient has a [place] Angelo valve in 1989. On coumadin since. He needs to be in the 2.5 to 3.5. He has been on 2.5 on all days except Friday and sat of 3.0. 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 Shoulder impingement 01/06/2014 Verruca vulgaris PAST SURGICAL HISTORY Procedure Laterality Date BACK SURGERY HX 2007 lower back surgery BASIC PACEMAKER DUAL CHAMBER Left 11/11/2016 Medtronic dual-chamber pacemaker; indication: symptomatic sick sinus syndrome CARDIAC CATH 04/28/2020 moderate 60% disease of LAD; moderate LV systolic dysfunction ECHO TRANSESOPHAG CONGEN PROBE [facility] I&R 05/18/2020 see report; notable for moderate LV systolic dysfxn, LVEF 35% ECHOCARDIOGRAM 01/31/2020 mild LV systolic dysfxn; LVEF 51% EPS: VT ABLATION 09/22/2017 PVC RF catheter ablation at aortomitral continuity and junction of L/R coronary cusps HEART VALVE REPLACEMENT 1989 MVR (mechanical SJM) PHARMACOLOGIC NUCLEAR STRESS 03/06/2020 no ischemia; small region of scar in RCA territory; mild to moderate LV systolic dysfunction, LVEF 43% RPR 1ST INGUN HRNA AGE 5 YRS/> REDUCIBLE 2011 Hernia repair, inguinal ALLERGIES Patient has no known allergies. MEDICATIONS iv contrast (will be provided with radiology test) CT ABD/PEL -Inject, intravenously, once for 1 dose.No IV access, insert saline lock prior to the beginning of sedation, infusion, injection of imaging exam. Discontinue saline lock post exam. If Pt. has a central line or IVAD, may access for administration according to line specific nursing protocol. Once exam is complete flush line and de-access according to line specific nursing protocol in the CT contrast administration guidelines link. enteric contrast (will be provided with radiology test) For CT ABD/PEL W IVCON Routine order Administer, As Directed One Time Only, via Oral, Rectal, both Oral and Rectal, Enteric Tube, Stoma or Indwelling Catheter, Enteric Contrast as designated per enteric contrast guidelines warfarin (COUMADIN) 2.5 mg tablet Take 1 tablet by mouth once daily. Take as directed by the Coumadin Clinic lisinopril (ZESTRIL, PRINIVIL) 5 mg tablet Take 2 tablets by mouth once daily. torsemide (DEMADEX) 20 mg tablet Take 1 tablet by mouth once daily pirfenidone (ESBRIET) 267 mg capsule Days 1 to 7: 267 mg 3 times daily (total dose: 801 mg/day)\ Days 8 to 14: 534 mg 3 times daily (total dose: 1,602 mg/day) Day 15 and thereafter: 801 mg 3 times daily (total dose: 2,403 mg/day) PARoxetine (PAXIL) 10 mg tablet Take 1 tablet by mouth once daily. carvedilol (COREG) 3.125 mg tablet Take 1 tablet by mouth twice daily. pantoprazole DR (PROTONIX) 40 mg tablet Take 1 tablet by mouth once daily. Take on empty stomach, 1/2 hr before meal. sildenafil (VIAGRA) 25 mg tablet Take 1 tablet by mouth as needed. atorvastatin (LIPITOR) 20 mg tablet Take 1 tablet by mouth once daily. potassium chloride (K-TAB) 10 mEq tablet Take 1 tablet by mouth daily with breakfast. warfarin (COUMADIN) 3 mg tablet Take as directed by [facility] Anticoagulation Clinic. FAMILY HISTORY Problem Relation Age of Onset Diabetes Mother Diabetes Maternal Grandmother Diabetes Maternal Grandfather Social History Tobacco Use Smoking status: Never Smoker Smokeless tobacco: Never Used Vaping Use Vaping Use: Never used Substance Use Topics Alcohol use: No Drug use: No PHYSICAL EXAM BP 112/68 Pulse 68 Resp 12 Wt 80.3 kg (177 lb) BMI 24.01 kg/m General Appearance: well appearing, in no acute distress, alert Left forehead- laceration edges well approximated with some crusting around suture line. Three sutures removed without difficulty DATA REVIEWED: Outside chart from [facility] ER reviewed. ASSESSMENT/PLAN: 1. Laceration of other part of head without foreign body, subsequent encounter - ICD9: V58.89, 873.8, ICD10: S01.81XD (primary diagnosis) Sutures removed without difficulty. No evidence of infection. No concerning neurological symptoms. Wound care instructions reviewed, see patient instructions 2. Visit for suture removal - ICD9: V58.32, ICD10: Z48.02 As above Prescription instructions reviewed with patient as applicable. Potential red flag symptoms discussed with the patient. Reviewed appropriate action plan to take if red flag symptoms occur. Patient agreeable to treatment plan. Pham Bowman APRN.CNP documented in this encounter [facility] 03-05-2022 History of Presen t illness Narrative Images from the original note were not included. Rheumatology Outpatient Clinic Follow Up Visit Date of Service: 03/05/2022 Patient: Gagandeep Duarte Medical Record: [id number] Primary Care Physician: Macey Lee MD Last Rheumatology visit: 01/17/2022 (with Natalia Gaffney) History of Present Illness Gagandeep Duarte is a 76 year old White male who presents on 03/05/2022 for an in-person visit for evaluation of NXP-2 Ab. Gagandeep is both RF - 9 (12/17/2021) and CCP - 13.5 (12/17/2021) negative. His most recent OSCAR was positive (12/17/2021). 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 Had a visit to [facility] on 10/27 for ? Urticarial itchy rash over arms, back, prescribed prednisone and triamcinolone. He mentions having bruises all over his body He always wears long sleeve shirts and is good about putting sunblock on his hands. Does not apply on his face. He has changed his diet and endorses choking sensation with some difficulty swallowing Reports this has been ongoing since about 10-15 years This is more with swallowing big pieces. No testing performed from swallowing perspective in the past. In the past 6 months he feels tighter in his throat near the larynx area. Has lower extremity edema occasionally in the calf area-reports it has not been bad lately Puts compression socks on Has been put on torsemide for swelling for about 5 years + raynaud's for few years now-hands and feet No digital ulcers Has not been prescribed any medications + muscle cramps in his legs especially in the morning Has been noticing difficulty getting out of a chair since about a year or so Denies any upper extremity weakness that he has noticed Denies any weight loss. No joint pain Denies any calcinosis or lumps Health maintenance: Cscope: few years ago-not sure of exact dates PSA levels have been normal Family hx: Father had Rheumatoid arthritis No malignancy in parents INTERVAL HISTORY Here today for an inperson visit He reports that choking episodes are rarely-if he takes a big bite or so Underwent XR esophagogram was normal He hd a fall last morning-tripped over a folded rug and required stitches over left temporal area Underwent CT brain without any hemorrhage He reports photosensitivity over his face when he goes out in the sun, intermittently He reports feeling having very low energy, does not feel like he can get up and move out the door [place], feels he needs to force himself to go out and do things Has never been a high energy person - states this is always what he is like No weight loss, steady weight since a long time Madinaud's is okay for now-worse in the cold Patient-Entered Data PAIN EVALUATION No data found in the last 1 encounters. PROMIS Assessments PROMIS Assessments 06/12/2021 12/16/2021 01/17/2022 Physical Health Percentile 41 % 31 % - Mental Health Percentile 13 % 26 % - Pain Score 4 4 - Pain Interference Percentile - - 38 % Fatigue Percentile - - 24 % Physical Function Percentile - - 24 % RAPID 3 Snider Activities of Daily Living 01/17/2022 8:57 AM Dress self? With SOME difficulty Get in and out of bed? With SOME difficulty Walk outdoors? Without ANY difficulty Wash and dry body? Without ANY difficulty Get in and out of car? Without ANY difficulty RAPID 3 Disease Activity Weighed Score Levels: 0 - 1: Near Remission 1.3 - 2.0: Low Severity 2.3 - 4.0: Moderate Severity 4.3 - 10.0: High Severity RAPID-3 Weighed Score 01/17/2022 RAPID 3 Weighed Score 1.67 (Low Severity (LS)) ROS RHEUMATOLOGY + fatigue + SOB + sicca symptoms + memory loss + arthralgias All other reviewed and negative other than HPI. Past Medical History PAST MEDICAL HISTORY Diagnosis Date Anxiety Anxiety and depression 12/26/2014 At risk for stroke Back pain Bradycardia CHF (congestive heart failure) (HCC) Dyspepsia Fracture History of sick sinus syndrome Hyperlipidemia 05/03/2015 Hypertension 12/26/2014 Hypogonadism in male Inguinal hernia Mitral valve regurgitation [employer] Angelo valve replacement 1989 Panic attacks Permanent atrial fibrillation (HCC) atrial fibrillation diagnosed 2008, permanent by 2016 Pneumonia As a child Posterior vitreous detachment - Both Eyes 07/26/2014 Presence of cardiac pacemaker Medtronic dual-chamber pacemaker implanted 11/2016; indication: symptomatic sick sinus syndrome S/P MVR (mitral valve replacement) 12/02/[address] patient has a [employer] Angelo valve in 1989. On coumadin since. He needs to be in the 2.5 to 3.5. He has been on 2.5 on all days except Friday and sat of 3.0. 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 Shoulder impingement 01/06/2014 Verruca vulgaris Past Surgical History PAST SURGICAL HISTORY Procedure Laterality Date BACK SURGERY HX 2007 lower back surgery BASIC PACEMAKER DUAL CHAMBER Left 11/11/2016 Medtronic dual-chamber pacemaker; indication: symptomatic sick sinus syndrome CARDIAC CATH 04/28/2020 moderate 60% disease of LAD; moderate LV systolic dysfunction ECHO TRANSESOPHAG CONGEN PROBE [facility] I&R 05/18/2020 see report; notable for moderate LV systolic dysfxn, LVEF 35% ECHOCARDIOGRAM 01/31/2020 mild LV systolic dysfxn; LVEF 51% EPS: VT ABLATION 09/22/2017 PVC RF catheter ablation at aortomitral continuity and junction of L/R coronary cusps HEART VALVE REPLACEMENT 1989 MVR (mechanical SJM) PHARMACOLOGIC NUCLEAR STRESS 03/06/2020 no ischemia; small region of scar in RCA territory; mild to moderate LV systolic dysfunction, LVEF 43% RPR 1ST INGUN HRNA AGE 3 YRS/> REDUCIBLE 2012 Hernia repair, inguinal Family History FAMILY HISTORY Problem Relation Age of Onset Diabetes Mother Diabetes Maternal Grandmother Diabetes Maternal Grandfather Social History Social History Tobacco Use Smoking status: Never Smoker Smokeless tobacco: Never Used Vaping Use Vaping Use: Never used Substance Use Topics Alcohol use: No Drug use: No Current Medications Current Outpatient Medications on File Prior to Visit Medication Sig warfarin (COUMADIN) 2.5 mg tablet Take 1 tablet by mouth once daily. Take as directed by the Coumadin Clinic lisinopril (ZESTRIL, PRINIVIL) 5 mg tablet Take 2 tablets by mouth once daily. torsemide (DEMADEX) 20 mg tablet Take 1 tablet by mouth once daily pirfenidone (ESBRIET) 267 mg capsule Days 1 to 7: 267 mg 3 times daily (total dose: 801 mg/day)\ Days 8 to 14: 534 mg 3 times daily (total dose: 1,602 mg/day) Day 15 and thereafter: 801 mg 3 times daily (total dose: 2,403 mg/day) PARoxetine (PAXIL) 10 mg tablet Take 1 tablet by mouth once daily. carvedilol (COREG) 3.125 mg tablet Take 1 tablet by mouth twice daily. pantoprazole DR (PROTONIX) 40 mg tablet Take 1 tablet by mouth once daily. Take on empty stomach, 1/2 hr before meal. sildenafil (VIAGRA) 25 mg tablet Take 1 tablet by mouth as needed. atorvastatin (LIPITOR) 20 mg tablet Take 1 tablet by mouth once daily. potassium chloride (K-TAB) 10 mEq tablet Take 1 tablet by mouth daily with breakfast. warfarin (COUMADIN) 3 mg tablet Take as directed by [facility] Anticoagulation Clinic. Current Facility-Administered Medications on File Prior to Visit Medication perflutren lipid microspheres 1.3 mL in NaCl (PF) 0.9% 10 mL injection (DEFINITY) sodium chloride 0.9 % (flush) 10 mL (BD POSIFLUSH) Objective Labs CBC Latest Ref Rng & Units 10/29/2021 12/17/2021 01/19/2022 03/04/2022 WBC 3.70 - 11.00 k/uL 9.56 8.37 7.70 7.99 HGB 13.7 - 17.5 g/dL - - - - HEMOGLOBIN 13.0 - 17.0 g/dL 13.0 12.9(L) 12.3(L) 13.0 HEMATOCRIT 39.0 - 51.0 % 41.4 40.6 38.4(L) 39.4 PLATELETS 150 - 400 k/uL 149(L) 152 139(L) 166 ABS NEUT (ANC) 1.45 - 7.50 k/uL 7.63(H) 5.09 5.05 4.92 ABS LYMPH 1.00 - 4.00 k/uL 1.34 1.98 1.49 1.83 CMP Latest Ref Rng & Units 07/09/2021 12/17/2021 01/19/2022 03/04/2022 SODIUM 136 - 144 mmol/L 142 138 138 140 POTASSIUM 3.7 - 5.1 mmol/L 4.6 4.3 4.2 5.0 CHLORIDE 97 - 105 mmol/L 103 100 102 102 CO2 22 - 30 mmol/L 29 29 25 31(H) GLUCOSE 74 - 99 mg/dL 96 91 113(H) 67(L) BUN 9 - 24 mg/dL 29(H) 39(H) 33(H) 30(H) CREATININE 0.73 - 1.22 mg/dL 1.19 1.08 1.17 1.22 CREATININE (POCT) 0.7 - 1.4 mg/dL - - - - CALCIUM, TOTAL 8.5 - 10.2 mg/dL 9.2 9.7 9.4 9.6 AST 14 - 40 U/L - 33 25 27 ALT 10 - 54 U/L - 16 10 10 ALKALINE PHOSPHATASE 38 - 113 U/L - 174(H) 174(H) 203(H) ESR, WSR Latest Ref Rng & Units 10/29/2021 WSR 0 - 15 mm/hr 2 CK Latest Ref Rng & Units 04/03/2015 05/26/2015 12/29/2015 12/17/2021 CK 51 - 298 U/L 59 82 83 50(L) RF and CCP Latest Ref Rng & Units 12/17/2021 RHEUMATOID FACTOR <16 IU/mL <10 CCP ANTIBODY IGG QUALITATIVE Negative Negative CCP ANTIBODY, IGG <20 Units <15 Antibodies Latest Ref Rng & Units 01/25/2021 08/09/2021 12/17/2021 12/17/2021 OSCAR Negative - - Negative - OSCAR BY EIA, QUAL Negative - - Positive(A) - DNA ANTIBODY W/CONFIRMATION <30 IU/mL - - 12.23 - LABOR DELIVERY RN ANTIBODY QUAL Negative - - Negative Negative SSA ANTIBODY QUAL Negative - - Negative Negative GAIL 1 ANTIBODY <1.0 AI - - <0.2 <0.2 GAIL 1 ANTIBODY QUAL Negative - - Negative Negative RIBOSOMAL LABOR DELIVERY RN AB <1.0 AI - - 0.2 0.2 RIBOSOMAL LABOR DELIVERY RN QUAL Negative - - Negative Negative ANTI-SSA <1.0 AI - - 0.2 0.2 ANTI-SSB <1.0 AI - - <0.2 <0.2 ANTI-SM <1.0 AI - - <0.2 <0.2 SM ANTIBODY Negative - - Negative Negative SCL-70 AB QUAL Negative - - Negative Negative SCL-70 ABS, EIA <1.0 AI - - <0.2 <0.2 CENTROMERE AB <1.0 AI - - <0.2 <0.2 CENTROMERE AB QUAL Negative - - Negative Negative CHROMATIN AB <1.0 AI - - <0.2 <0.2 CHROMATIN AB QUAL Negative - - Negative Negative PT SEC 9.7 - 13.0 sec - - - - PT INR - 3.4 ([employer]) 1.7 - - PTT 23.0 - 32.4 sec - - - - ANCA Latest Ref Rng & Units 12/17/2021 P-ANCA FLUORESCENCE Negative Negative C-ANCA FLUORESCENCE Negative Negative Urinalysis Latest Ref Rng & Units 04/08/2017 PROTEIN UA (POCT) Neg mg/dL Negative GAIL-1 (HISTIDYL-TRNA SYNTHETASE) AB, IGG 0 - 40 AU/mL 1 Comment: INTERPRETIVE INFORMATION: Gail-1 Antibody, IgG 29 AU/mL or less.........Negative 30-40 AU/mL..............Equivocal 41 AU/mL or greater......Positive Presence of Gail-1 (antihistidyl transfer RNA [t-RNA] synthetase) antibody is associated with polymyositis and may also be seen in patients with dermatomyositis. Gail-1 antibody is associated with pulmonary involvement (interstitial lung disease), Raynaud phenomenon, arthritis, and senior mechanical designer's hands (implicated in antisynthetase syndrome). Mi-2 (nuclear helicase protein) Antibody Negative Negative PL-7 (THREONYL-TRNA SYNTHETASE) ANTIBODY Negative Negative PL-12 (ALANYL-TRNA SYNTHETASE) ANTIBODY Negative Negative P155/140 Antibody Negative Negative Comment: Performed by [facility], [address] [place] [id number] [email or web address], Lizabeth Gómez MD, Lab. Director EJ (GLYCYL-TRNA SYNTHETASE) ANTIBODY Negative Negative SRP (SIGNAL RECOGNITION PARTICLE) AB Negative Negative OJ (ISOLEUCYL-TRNA SYNTHETASE) ANTIBODY Negative Negative SAE1 (SUMO activating enzyme) Ab Negative Negative MDA5 (CADM-140) Ab Negative Negative NXP2 (Nuclear matrix protein-2) Ab Negative Positive Abnormal TIF-1 gamma (155 kDa) Ab Negative Negative MYOSITIS INTERPRETIVE INFORMATION See Note Comment: INTERPRETIVE INFORMATION: Dermatomyositis and Polymyositis Imaging Last XR Chest - Impression Only XR CHEST 2V FRONTAL/LAT Exam End: 10/29/2021 11:33 AM (Final result) Impression: IMPRESSION: 1. Continued interval decrease in right infrahilar opacity. 2. Otherwise, stable prominence of the right greater than left interstitial markings. 3. Stable cardiomediastinal silhouette. ... Complete Results Echo: 10/01/2021 CONCLUSIONS: - Exam indication: Routine surveillance of prosthetic valve (>3yrs) - The left ventricle is normal in size. Left ventricular systolic function is mildly decreased. EF = 50 5% (visual est.) Left ventricular diastolic function was not evaluated due to mitral valve surgery. - The right ventricle is dilated. Right ventricular systolic function is mildly decreased. - The right atrial cavity is dilated. - The visualized aorta is dilated with a maximal dimension of 4.2 cm. - [employer] prosthetic mitral valve. There is trace (trace - 1+) mitral valve regurgitation. The peak gradient is 10 mmHg and the mean gradient is 3 mmHg. - Exam was compared with the prior echocardiographic exam performed on 01/31/2020, no significant change. Health Maintenance Current Immunizations Reviewed on 03/05/2022 Name Date COVID-19 vaccine (PFIZER-BIONTECH - FAYE TOP) 11/17/2021 COVID-19 vaccine (PFIZER-BIONTECH - PURPLE TOP) 05/09/2021 , 10/04/2020 , 09/08/2020 , 09/08/2020 INFLUENZA 04/28/2019 , 03/11/2019 , 04/23/2018 , 04/07/2017 , 04/07/2017 , 03/30/2016 , 05/11/2015 , 05/17/2013 Influenza 05/27/2014 , 05/07/2010 , 05/07/2010 , 05/07/2010 PNEUMOCOCCAL (PPSV) 07/27/2010 , 07/27/2010 , 07/27/2010 PNEUMOCOCCAL VAC CONJUGATE 05/03/2015 TETANUS DIPHTHERIA (TD) 07/05/2020 VARICELLA-ZOSTER (SHINGLES) 05/17/2013 influenza, high-dose, quadrivalent 05/09/2021 , 05/19/2020 Physical Exam BP 123/75 Pulse (!) 51 Temp 36.1 C (96.9 F) (Temporal) Ht 182.9 cm (6') Wt 80.7 kg (178 lb) BMI 24.14 kg/m GENERAL: Well appearing, sitting in chair, in NAD. HEENT: EOMI, no scleral icterus, oropharynx clear, multiple ecchymosis and bruises noted over face, left temporal area with stitches present NECK: No cervical LAD, or thyromegaly. CV: Normal rate, regular rhythm , No murmur PULM: Normal WOB and RR on RA. Lung bach CTA bilaterally without appreciable wheezes or crackles. GI: soft, nondistended, nontender, EXT: No edema. SKIN: Warm, dry, no significant rashes, no significant bruising. NEURO: AOx3. Mental status and speech normal. Sensation: Intact to light touch. Motor: 5/5 strength in all muscle groups except 4+/5 in prox thighs assessed in upper and lower extremities.. Gait: Normal PSYCH: Pleasant mood, appropriate affect. MSK: No joint swelling, deformities No calcinosis Impression and Plan (J84.9) ILD (interstitial lung disease) (HCC) (primary encounter diagnosis) (R21) Rash (R13.10) Dysphagia, unspecified type (R74.8) Alkaline phosphatase elevation + NXP Ab positive Long standing MCDONALD, recent diagnosis of Intersitial lung disease-UIP pattern, mild symptoms Other features: Raynaud's, reports mild rash over face, occasional dysphagia, mild muscle weakness in LE proximal (normal CK, Aldolase normal), edema (multifactorial), myalgias On exam today nailfold capillaroscopy with few dilated capillaries XR esophagogram normal Unable to clearly state if his skin lesions fit with dermatomyositis as per dermatology especially with recent fall and bruising Will monitor for new symptoms or progression for now Add Alk phos isoenzyme Check T Abd/.Pelvis for malignancy screening 3 month follow up in person Natalia Gaffney MD Rheumatology Date: March 04, 2022 Time: 4:44 PM documented in this encounter [facility] 03-04-2022 Instructions Lilia Levy MD - 03/04/2022 10:01 AM EDT Please schedule an appointment to see us in 2 months when your bruising has healed for a repeat examination. Obtain lab work. documented in this encounter [facility] 03-04-2022 History of Presen t illness Narrative Chief Complaint: rash History of Present Ilness: Gagandeep Duarte is a 76 year old male with history notable for interstitial lung disease and recent NXP + antibody Patient is here for: 1) on face - noted within 6-7 months although patient is not sure if it may have been present sooner - comes and goes - pt does not endorse any triggers, possibly sunlight but not a very strong association - anti double stranded dna negative and all other autoimmune w/u negative except for OSCAR positive - describes trouble eating food that is too big, it gets stuck in his esophagus, only solids, describes a spasm like feel. Reports barium swallow unremarkable - No night sweats or intended weight loss - recently started pirfenidone for interstitial lung disease and suspects this has been contributing to his fatigue - Recently tripped at home and fell on face. Has significant ecchymoses on face, was evaluated in ER at this time with laceration repair - Endorsed symptoms of Raynauds - Scalp not itchy at all, and redness of face is asymptomatic as well Current treatment none Past treatments none Pertinent Past Medical History: History of skin cancer or atypical nevi No Specialty Problems None Pertinent Family medical history: History of melanoma No Review of Systems: Constitutional: Denies fever, chills, night sweats, unintentional weight loss. Skin per HPI. No other new/concerning skin growth. Physical Exam: General: well appearing, of stated age, in no acute distress Neurology: alert and oriented times three Psychiatry: in a happy mood Skin: Resendez skin type: II Skin exam performed of face, scalp, ears, eyelids, lips, neck, chest, back, bilateral knees. Skin exam normal with the exception of: - telangiectasia right cheek with background erythema of bilateral cheeks - Poikiloderma and pink patches across upper chest - right and right superior orbit with ecchymosis - left zygoma with echymosis - lichenification of bilateral knees - Elbows, dorsal hands, posterior neck clear. Hips reportedly clear per patient. - Proximal nail folds unremarkable Assessment and Plan: In summary, Gagandeep Duarte is a 76 year old male who presents for faint malar rash discovered during video visit with dining services manager, here to rule out cutaneous lupus/dermatomyositis. 1. Rash and nonspecific skin eruption in setting of +NXP antibody - ddx Poikiloderma in setting of photodamage +/- ET rosacea vs dermatomyositis vs less likely cutaneous lupus - Aldolase minimally elevated at recent check, CK low (5/9). Will repeat aldolase today. OSCAR by IFA negative, OSCAR by EIA positive without titer reported - OMRF panel to be collected - would like to see patient once ecchymosis have healed - Rash asymptomatic so will defer treatment at this time - Discussed NXP antibody positivity and frequent association with diagnosis of dermatomyositis. Clinical exam today is not diagnostic of classic DM features (no areas consistent with calcinosis either), but did relay to patient that recent significant fall and bruising somewhat limits exam and antibody positivity + Raynauds + ILD + mild aldolase elevation should keep this diagnosis as consideration - Discussed NXPs reported association with malignancy, and although not definitively diagnosed, would encourage he be up to date on age appropriate malignancy screenings - Discussed that biopsy in future could be considered at follow-up to evaluate for interface dermatitis - Continue work-up of dysphagia Return to clinic in 2 months (once ecchymosis is healed) and ideally OMRF panel results available or sooner if something concerning arises. The documentation for this note was completed by Chelsy García LPN acting as scribe for Mireya Martin MD. March 04, 2022 9:25 AM. Chelsy Levy MD, PGY2 Attestation: I agree with the Chief Complaint, ROS, and Past Histories independently gathered by the clinical logistics support, and the remaining scribed note accurately describes my personal service to the patient. I saw and evaluated the patient as well as developed and discussed the assessment and plan with the resident. I have reviewed the resident's note and agree with the history and physical examination as described, as well as the assessment and plan of care. The resident's note was annotated by me as needed to reflect my direct input. There were no procedures performed during this patient's visit. Mireya Martin MD March 04, 2022 Medical Decision Making: Problems: Moderate: New problem with uncertain prognosis Data: Unique test result(s) reviewed: 2 Unique test(s) ordered: 1 Medical Decision Making Level: 4 - Moderate documented in this encounter [facility] 02-28-2022 History of Presen t illness Narrative Nontoxic-appearing male presents urgent care chief plaint head injury. Patient states was walking on the stairs today when he tripped falling on the last 2 steps striking his head on a coffee table. Patient presents today for evaluation. Superficial laceration/abrasion noted left voodoo area. Ecchymosis noted around left eye. It was noted patient is on Coumadin. With patient's presenting symptoms and blood thinning medication recommend patient be seen in ED for further evaluation care. Patient verbalized understand agrees with plan of care. Will be seen at [facility]. Brcie Menendez APRN.EILEEN documented in this encounter [facility] 02-25-[address] [facility] Ambulatory Pharmacy Anticoagulation Clinic Anticoagulation Episode Summary Anticoagulation Care Providers Provider Role Specialty Phone number Macey Lee MD Responsible Internal Medicine [phone] Gagandeep Marion Duarte is a 76 year old year old male patient being evaluated today for a Telemanagement visit. Patient is currently on the following anticoagulant(s) Warfarin. Labs PT INR (no units) Date Value 08/09/2021 1.7 01/25/2021 3.4 (BioTel) 11/02/2020 3.2 INR Home CoaguChek (no units) Date Value 02/24/2022 1.9 02/07/2022 1.6 01/10/2022 2.6 Estimated Creatinine Clearance: 57.1 mL/min (based on SCr of 1.17 mg/dL). ALLERGIES No Known Allergies Indication for Warfarin: S/p mvr (mitral valve replacement) Anticoagulant long-term use Anticoagulation Episode Summary Current INR goal: 2.5-3.5 Assessment: INR result of 1.9 is SUBtherapeutic due to: No obvious cause Plan: Current Warfarin Dosing As of 02/22/2022 Warfarin maintenance plan: 3 mg (3 mg x 1) every Mon, Fri; 2.5 mg (2.5 mg x 1) all other days Called and spoke to patient/caregiver Advised patient to increase total weekly regimen to 3 mg every Mon, Fri; 2.5 mg all other days Next INR check due on 03/11/2022 Patient verbalizes understanding of the plan. Husam Chilel [facility] Clinical Pharmacist, Pharmacy Anticoagulation Clinic Pharmacy Anticoagulation Clinic Pager: [phone]. Patient due to test INR today. Will continue to monitor for results. Deisy Naylor RPh documented in this encounter [facility] 02-12-2022 Miscellaneous Notes Patient has been identified by name and date of : Yes Patient phones for refill(s): Pending Prescriptions Disp Refills LISINOPRIL 5 MG TABLET 180 tablet 3 Sig: Take 2 tablets by mouth once daily. NIVIA: No Date of last office visit in primary care: 01/31/22 Last 2 Encounter Wt Readings: Date: Wt: 01/31/2022 83 kg (183 lb) 12/17/2021 81.6 kg (180 lb) Previous labs/tests for medication: Blood Pressure: BUN (mg/dL) Date Value 01/19/2022 33 07/09/2021 29 Sodium (mmol/L) Date Value 01/19/2022 138 07/09/2021 142 Last 1 Encounter BP Readings: Date: BP: 01/31/2022 130/76 Please advise. Thank you. Flavia Colin LPN documented in this encounter [facility] 02-06-2022 Miscellaneous Notes Summary: patient returned phone call Patient returned phone call very sleepy, no energy, some diarrhea. Has been on max dose for 3 three weeks. Patient has been light headed intermittently. Patient would like to wait on changing Esbriet dosage to see if this gets any better. No side effects are sever enough that he wants to stop or lower Esbriet dosage at this time. Advised patient I would update Dr Sales and if he wanted to make any changes I would let the patient know. Patient is agreeable to this plan. Onel Zavala RN ummary: check on patient with Esbriet titration up to max amount Called patient no answer left VM with call back info. Following up with patient on how he is feeling being on his max dose of Esbriet. Had reported some dizziness with increase to max dose. Onel Zavala RN documented in this encounter [facility] 01-31-2022 Instructions Le Clark APRN.EXPLOITATION ANALYST - 01/31/2022 2:50 PM EDT Aim for about 64 ounces of fluids per day -noncaffeinated beverages Recheck metabolic panel in the next couple weeks -order placed Let us know if you are not feeling improved with this documented in this encounter [facility] 01-31-2022 History of Presen t illness Narrative SUBJECTIVE: HEPATITIS C SCREENING Never done SHINGRIX VACCINE(2 of 3) due on 07/12/2013 DTAP,TDAP,TD(1 - Tdap) due on 07/06/2020 ADVANCE DIRECTIVE DISCUSSION Never done HPI Gagandeep Duarte is a 76 year old male. PMH significant for ACTIVE PROBLEM LIST S/P Mvr (Mitral Valve Replacement) Anxiety and Depression Hyperlipidemia Pvc's (Premature Ventricular Contractions) Pvc (Premature Ventricular Contraction) Thrombocytopenia (Hcc) Anticoagulant Long-Term Use Chronic Combined Systolic and Diastolic Congestive Heart Failure (Hcc) Cardiomyopathy, Nonischemic (Hcc) Permanent Atrial Fibrillation (Hcc) Presence of Cardiac Pacemaker Bradycardia History of Sick Sinus Syndrome At Risk for Stroke Ild (Interstitial Lung Disease) ([facility]) Followed by Dr Contreras cardiology. Sees Nancy Sales MD for idiopathic pulmonary fibrosis. Started on pirfenidone at his last visit Presents today regarding lightheadedness x 2 days. He notes this first thing in the morning on arising. Does not affect him when standing up from a seated position later in the day. Not related to head movements. No report of chest pain shortness of breath palpitations or any other associated symptoms. Home BP: none reported Positional lightheadedness:states no Orthostatic: no Maintain oral intake fluids: thinks he is drinking enough, 1 or 2 quarts per day Last 14 Encounter BP Readings: Date: BP: 12/17/2021 116/66 10/29/2021 126/60 10/27/2021 120/54 09/17/2021 122/64 09/12/2021 100/64 08/30/2021 125/56 07/27/2021 110/68 07/24/2021 124/70 07/09/2021 120/50 06/13/2021 112/66 06/04/2021 118/68 03/19/2021 110/70 01/31/2021 110/60 10/09/2020 110/56 Review of Systems Neurological: Positive for dizziness and light-headedness. Objective BP 130/76 (BP Site: Right Arm, BP Position: Standing, BP Cuff Size: Regular Adult) Pulse 60 Resp 16 Wt 83 kg (183 lb) SpO2 98% BMI 24.82 kg/m Physical Exam Vitals and nursing note reviewed. Constitutional: Appearance: Normal appearance. HENT: Head: Normocephalic and atraumatic. Eyes: Conjunctiva/sclera: Conjunctivae normal. Neck: Thyroid: No thyroid mass or thyromegaly. Cardiovascular: Rate and Rhythm: Normal rate. Rhythm irregular. Pulmonary: Effort: Pulmonary effort is normal. Breath sounds: Wheezes: few scattered. Musculoskeletal: Right lower leg: No edema. Left lower leg: No edema. Skin: General: Skin is warm and dry. Neurological: Mental Status: He is alert. ALLERGIES No Known Allergies torsemide (DEMADEX) 20 mg tablet Take 1 tablet by mouth once daily warfarin (COUMADIN) 2.5 mg tablet Take 1 tablet by mouth once daily. Take as directed by the Coumadin Clinic pirfenidone (ESBRIET) 267 mg capsule Days 1 to 7: 267 mg 3 times daily (total dose: 801 mg/day)\ Days 8 to 14: 534 mg 3 times daily (total dose: 1,602 mg/day) Day 15 and thereafter: 801 mg 3 times daily (total dose: 2,403 mg/day) PARoxetine (PAXIL) 10 mg tablet Take 1 tablet by mouth once daily. carvedilol (COREG) 3.125 mg tablet Take 1 tablet by mouth twice daily. pantoprazole DR (PROTONIX) 40 mg tablet Take 1 tablet by mouth once daily. Take on empty stomach, 1/2 hr before meal. sildenafil (VIAGRA) 25 mg tablet Take 1 tablet by mouth as needed. atorvastatin (LIPITOR) 20 mg tablet Take 1 tablet by mouth once daily. potassium chloride (K-TAB) 10 mEq tablet Take 1 tablet by mouth daily with breakfast. lisinopril (ZESTRIL, PRINIVIL) 5 mg tablet Take 2 tablets by mouth once daily. warfarin (COUMADIN) 3 mg tablet Take as directed by [facility] Anticoagulation Clinic. PAST MEDICAL HISTORY Diagnosis Date Anxiety Anxiety and depression 12/26/2014 At risk for stroke Back pain Bradycardia CHF (congestive heart failure) (HCC) Dyspepsia Fracture History of sick sinus syndrome Hyperlipidemia 05/03/2015 Hypertension 12/26/2014 Hypogonadism in male Inguinal hernia Mitral valve regurgitation [place] valve replacement 1989 Panic attacks Permanent atrial fibrillation (HCC) atrial fibrillation diagnosed 2008, permanent by 2016 Pneumonia As a child Posterior vitreous detachment - Both Eyes 07/26/2014 Presence of cardiac pacemaker Medtronic dual-chamber pacemaker implanted 11/2016; indication: symptomatic sick sinus syndrome S/P MVR (mitral valve replacement) 12/02/[address] patient has a [place]o valve in 1989. On coumadin since. He needs to be in the 2.5 to 3.5. He has been on 2.5 on all days except Friday and sat of 3.0. 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 Shoulder impingement 01/06/2014 Verruca vulgaris Social History Tobacco Use Smoking status: Never Smoker Smokeless tobacco: Never Used Vaping Use Vaping Use: Never used Substance Use Topics Alcohol use: No Drug use: No Component Latest Ref Rng & Units 01/19/2022 WBC 3.70 - 11.00 k/uL 7.70 RBC 4.20 - 6.00 m/uL 3.81 (L) Hemoglobin 13.0 - 17.0 g/dL 12.3 (L) Hematocrit 39.0 - 51.0 % 38.4 (L) MCV 80.0 - 100.0 fL 100.8 (H) MCH 26.0 - 34.0 pg 32.3 MCHC 30.5 - 36.0 g/dL 32.0 RDW-CV 11.5 - 15.0 % 15.0 Platelet Count 150 - 400 k/uL 139 (L) MPV 9.0 - 12.7 fL 11.2 Neut% % 65.5 Abs Neut (ANC) 1.45 - 7.50 k/uL 5.05 Lymph% % 19.4 Abs Lymph 1.00 - 4.00 k/uL 1.49 [place]% % 9.0 Abs [place] <0.87 k/uL 0.69 Eosin% % 4.4 Abs Eosin <0.46 k/uL 0.34 Baso% % 1.2 Abs Baso <0.11 k/uL 0.09 Immature Gran % % 0.5 IMMATURE GRANS (ABS) <0.10 k/uL 0.04 NRBC /100 WBC 0.0 Absolute nRBC <0.01 k/uL <0.01 DTYPE Auto Protein, Total 6.3 - 8.0 g/dL 6.8 Albumin 3.9 - 4.9 g/dL 4.1 Calcium 8.5 - 10.2 mg/dL 9.4 Bilirubin, Total 0.2 - 1.3 mg/dL 0.7 Alkaline Phosphatase 38 - 113 U/L 174 (H) AST 14 - 40 U/L 25 ALT 10 - 54 U/L 10 Glucose 74 - 99 mg/dL 113 (H) BUN 9 - 24 mg/dL 33 (H) Creatinine 0.73 - 1.22 mg/dL 1.17 Sodium 136 - 144 mmol/L 138 Potassium 3.7 - 5.1 mmol/L 4.2 Chloride 97 - 105 mmol/L 102 CO2 22 - 30 mmol/L 25 Anion Gap 9 - 18 mmol/L 11 eGFR >=60 mL/min/1.73m 64 ASSESSMENT/PLAN: 1. Dizziness - ICD9: 780.4, ICD10: R42 (primary diagnosis) 2. Elevated BUN - ICD9: 790.6, ICD10: R79.9 - BASIC METABOLIC PNL He is not orthostatic in the office today. Recent BUN was elevated. May not be getting sufficient fluid intake. Endorse 64 ounces per 24 hours. Recheck metabolic panel in the next 1 to 2 weeks. Order placed. Pirfenidone has a known adverse effect of dizziness -18% on review in Up-to-date reference, will route to bank representative so that he is aware of this complaint. Le Clark APRN.EXPLOITATION ANALYST Medical Decision Making: Problems: Moderate: 1+ chronic illnesses with change Data: Unique test(s) ordered: 1 Medical Decision Making Level: 2 - Straightforward documented in this encounter [facility] 01-31-2022 Miscellaneous Notes Patient calls to report feeling light-headed for the past couple of days upon rising. Nurse triage completed. Protocol recommends see provider within 24 hours. Patient agreeable. Appointment scheduled. Care advice reviewed. Patient verbalizes understanding. Reason for Disposition [1] MODERATE dizziness (e.g., interferes with normal activities) AND [2] has NOT been evaluated by physician for this (Exception: dizziness caused by heat exposure, sudden standing, or poor fluid intake) Answer Assessment - Initial Assessment Questions 1. DESCRIPTION: Patient reports feeling woozy in the morning when he first wakes. He reports that after he wakes he gets up and eats breakfast and then rests for a couple of hours. The lightheadedness goes away after a couple of hours. 2. LIGHTHEADED: Woozy 3. VERTIGO: No 4. SEVERITY: - MODERATE: Feels very unsteady when walking, but not falling; interferes with normal activities (e.g., school, work) . 5. ONSET: Two days ago 6. AGGRAVATING FACTORS: No, doesn't seem to. 7. HEART RATE: Not able to tell 8. CAUSE: Patient doesn't know. 9. RECURRENT SYMPTOM: One episode along time ago and it was referred to as vertigo but this feels different. 10. OTHER SYMPTOMS: No chest pain, vomiting, diarrhea, fever, or bleeding. Patient reports drinking fluids ok and last voided 2 hours ago. Denies any symptoms of dehydration. Protocols used: DIZZINESS - [id number] documented in this encounter [facility] 01-24-2022 Miscellaneous Notes Patient due to test INR today. Will continue to monitor for results. Ashleigh Ware RPh documented in this encounter [facility] 01-09-2022 Miscellaneous Notes KAREN: 10/29/2021 Last refill: 10/22/2021 QTY: 30 Refills: 1 Patient's request for medication is as follows: Pending Prescriptions Disp Refills WARFARIN 2.5 MG TABLET 30 tablet 1 Sig: Take 1 tablet by mouth once daily. Take as directed by the Coumadin Clinic NIVIA: No Please approve the above prescription(s) to electronically send to pharmacy. Raffi Barnes Ma documented in this encounter [facility] 01-08-2022 Miscellaneous Notes Patient's request for medication is as follows: Refused Prescriptions Disp Refills torsemide (DEMADEX) 20 mg tablet 90 tablet 3 Sig: Take 1 tablet by mouth once daily. NIVIA: No Refused By: ERIN WAY Reason for Refusal: A Refill not appropriate Reason for Refusal Comment: Duplicate request Prescription(s) as above. Please process accordingly. Erin Way LPN documented in this encounter [facility] 12-27-2021 Miscellaneous Notes Replied to message with the same question Patient called for test results. Please contact patient. documented in this encounter [facility] 12-20-2021 Miscellaneous Notes GAGANDEEP DURATE Snider: [id number] [id number] Outcome: Approved Today PA Case: [id number], Status: Approved, Coverage Starts on: 08/11/2021 12:00:00 AM, Coverage Ends on: 08/10/2022 12:00:00 AM. Drug : Esbriet 267MG tablets Form: [employer] Electronic PA Form Shay Tejeda Medication prior authorization initiated for patient through CoverMyMeds / Esbriet 267 mg / waiting for response. Shay Tejeda documented in this encounter [facility] 12-18-2021 Miscellaneous Notes Received message request from Dr. Sales today 12/18/2021; new initiation of Esbriet 267 mg; RX complete; pending signature; replied back to sender. documented in this encounter [facility] 12-17-2021 Miscellaneous Notes Patient was due to test INR today. Will continue to monitor for results. documented in this encounter [facility] 12-17-2021 Instructions Nancy Sales MD - 12/17/2021 3:24 PM EDT - check blood work today - start esbiert for IPF - return in 3 months - monthly blood work documented in this encounter [facility] 12-17-2021 History of Presen t illness Narrative Consultation requested by Dr. Funez for an opinion regarding ILD. My final recommendations will be communicated back to the requesting physician by way of shared Medical record or letter to requesting physician via [place] mail. Thank you for requesting the consult on Mr. Gagandeep Duarte. I saw him in my interstitial lung disease clinic. Please find my evaluation below. CHIEF COMPLAINT: Patient presents with: Consult HISTORY OF PRESENT ILLNESS: Mr. Gagandeep Duarte who presents today for ILD Dyspnea on exertion, slowly progressive over the past few years Fatigue and drowsiness during the day Cardiac work up was unrevealing , led to Chest CT which showed ILD He is Able to to walk a couple of blocks, trouble with 2 flight os steps Mild cough, worse at night , dry mostly Mild wheezing No chest pain No pedal edema No orthopnea C/o chronic fatigue, which is slightly better recently Snores at night, no apneic spells noted Continues to be quite active, takes the dog for a walk and go up inclines occasionally Dry mouth Pedal edema waxes and wanes Occasional dysphagia Raynaud's positive GERD- minimal symptoms, hoarse voice main symptom Denies dry eyes, dry mouth, oral/nasal ulcers, gastroesophageal reflux, joint pain or swelling, muscle pain or weakness, change in skin texture, rash or skin lesions, photosensitivity, alopecia Never smoker, no drug, no E cig use. 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 Dogs and cats at home. No hot tub at home. No feather products currently. Lives at home with his Hobbies include carpentry. REVIEW OF SYSTEMS - 12 system ROS done, negative unless mentioned in HPI PAST MEDICAL HISTORY Diagnosis Date Anxiety Anxiety and depression 12/26/2014 At risk for stroke Back pain Bradycardia CHF (congestive heart failure) (HCC) Dyspepsia Fracture History of sick sinus syndrome Hyperlipidemia 05/03/2015 Hypertension 12/26/2014 Hypogonadism in male Inguinal hernia Mitral valve regurgitation [employer] [place] valve replacement 1989 Panic attacks Permanent atrial fibrillation (HCC) atrial fibrillation diagnosed 2008, permanent by 2017 Pneumonia As a child Posterior vitreous detachment - Both Eyes 07/26/2014 Presence of cardiac pacemaker Medtronic dual-chamber pacemaker implanted 11/2016; indication: symptomatic sick sinus syndrome S/P MVR (mitral valve replacement) 12/02/[address] patient has a [place] valve in 1989. On coumadin since. He needs to be in the 2.5 to 3.5. He has been on 2.5 on all days except Friday and sat of 3.0. 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 Shoulder impingement 01/06/2014 Verruca vulgaris PAST SURGICAL HISTORY Procedure Laterality Date BACK SURGERY HX 2007 lower back surgery BASIC PACEMAKER DUAL CHAMBER Left 11/11/2016 Medtronic dual-chamber pacemaker; indication: symptomatic sick sinus syndrome CARDIAC CATH 04/28/2020 moderate 60% disease of LAD; moderate LV systolic dysfunction ECHO TRANSESOPHAG CONGEN PROBE [facility] IMGNG I&R 05/18/2020 see report; notable for moderate LV systolic dysfxn, LVEF 35% ECHOCARDIOGRAM 01/31/2020 mild LV systolic dysfxn; LVEF 51% EPS: VT ABLATION 09/22/2017 PVC RF catheter ablation at aortomitral continuity and junction of L/R coronary cusps HEART VALVE REPLACEMENT 1989 MVR (mechanical SJM) PHARMACOLOGIC NUCLEAR STRESS 03/06/2020 no ischemia; small region of scar in RCA territory; mild to moderate LV systolic dysfunction, LVEF 43% RPR 1ST INGUN HRNA AGE 3 YRS/> REDUCIBLE 2011 Hernia repair, inguinal ALLERGIES ALLERGIES No Known Allergies MEDICATIONS Current Outpatient Medications Medication Sig pirfenidone (ESBRIET) 267 mg capsule Days 1 to 7: 267 mg 3 times daily (total dose: 801 mg/day)\ Days 8 to 14: 534 mg 3 times daily (total dose: 1,602 mg/day) Day 15 and thereafter: 801 mg 3 times daily (total dose: 2,403 mg/day) warfarin (COUMADIN) 2.5 mg tablet Take 1 tablet by mouth once daily. Take as directed by the Coumadin Clinic PARoxetine (PAXIL) 10 mg tablet Take 1 tablet by mouth once daily. carvedilol (COREG) 3.125 mg tablet Take 1 tablet by mouth twice daily. pantoprazole DR (PROTONIX) 40 mg tablet Take 1 tablet by mouth once daily. Take on empty stomach, 1/2 hr before meal. sildenafil (VIAGRA) 25 mg tablet Take 1 tablet by mouth as needed. atorvastatin (LIPITOR) 20 mg tablet Take 1 tablet by mouth once daily. potassium chloride (K-TAB) 10 mEq tablet Take 1 tablet by mouth daily with breakfast. lisinopril (ZESTRIL, PRINIVIL) 5 mg tablet Take 2 tablets by mouth once daily. torsemide (DEMADEX) 20 mg tablet Take 1 tablet by mouth once daily. warfarin (COUMADIN) 3 mg tablet Take as directed by [facility]. Current Facility-Administered Medications Medication Dose Route Frequency perflutren lipid microspheres 1.3 mL in NaCl (PF) 0.9% 10 mL injection (DEFINITY) INTRAVENOUS DIRECTED PRN sodium chloride 0.9 % (flush) 10 mL (BD POSIFLUSH) 10 mL INTRAVENOUS DIRECTED PRN PHYSICAL EXAMINATION BP 116/66 Pulse (!) 50 Temp 36.7 C (98 F) Resp 18 Ht 182.9 cm (6') Wt 81.6 kg (180 lb) SpO2 98% BMI 24.41 kg/m General: Well developed, well nourished ,in no apparent distress Head: Normal cephalic ENT: No sinus tenderness, Neck: Supple Chest: Normal vesicular breath sounds. No adventitial sounds heard. No respiratory distress or accessory muscle use Cardiac: Regular rate and rhythm Abdomen: Soft, non-tender, non-distended Extremities: No clubbing, cyanosis or edema Skin/hair: No rash or suspicious lesions. Neurologic: grossly normal DATA REVIEWED Labs: WBC (k/uL) Date Value 10/29/2021 9.56 RBC (m/uL) Date Value 10/29/2021 4.08 (L) Hemoglobin (g/dL) Date Value 10/29/2021 13.0 Hematocrit (%) Date Value 10/29/2021 41.4 MCV (fL) Date Value 10/29/2021 101.5 (H) MCH (pg) Date Value 10/29/2021 31.9 MCHC (g/dL) Date Value 10/29/2021 31.4 RDW-CV (%) Date Value 10/29/2021 14.2 Platelet Count (k/uL) Date Value 10/29/2021 149 (L) MPV (fL) Date Value 10/29/2021 11.6 Neut% (%) Date Value 10/29/2021 79.9 Lymph% (%) Date Value 10/29/2021 14.0 [place]% (%) Date Value 10/29/2021 5.6 Eosin% (%) Date Value 07/09/2021 3.6 Baso% (%) Date Value 10/29/2021 0.2 Abs Neut (k/uL) Date Value 10/29/2021 7.63 (H) Abs [place] (k/uL) Date Value 10/29/2021 0.54 Abs Eosin (k/uL) Date Value 10/29/2021 <0.03 Abs Baso (k/uL) Date Value 10/29/2021 <0.03 Glucose (mg/dL) Date Value 07/09/2021 96 BUN (mg/dL) Date Value 07/09/2021 29 (H) Creatinine (mg/dL) Date Value 07/09/2021 1.19 Sodium (mmol/L) Date Value 07/09/2021 142 Potassium (mmol/L) Date Value 07/09/2021 4.6 Chloride (mmol/L) Date Value 07/09/2021 103 CO2 (mmol/L) Date Value 07/09/2021 29 Protein, Total (g/dL) Date Value 04/28/2020 6.4 Albumin (g/dL) Date Value 04/28/2020 3.9 Calcium (mg/dL) Date Value 07/09/2021 9.2 Alkaline Phosphatase (U/L) Date Value 04/28/2020 172 (H) Bilirubin, Total (mg/dL) Date Value 04/28/2020 1.2 AST (U/L) Date Value 04/28/2020 28 ALT (U/L) Date Value 04/28/2020 13 Pulmonary function tests: FEV1 2.42/80 FVC 3.02/73 FEV1/FVC 80 FEF 25-75 TLC 67 RV 72 DLCO 51 6MWD Lowest spo2 O2 needs Highest HR Imaging: Chest CT- IMPRESSION: Interstitial lung disease probably greater on the RIGHT. Localized honeycombing LEFT lung base. Right lower lobe groundglass airspace disease. Constellation of findings are most likely predominantly due to fibrosis. Alveolitis in the area of groundglass airspace disease cannot be excluded. Cardiomegaly Pericardial calcification. 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 Mild symptoms. DLCO at 50 %. Preserved FVC No significant exposures. Some autoimmune features- raynaud's GAP Score 5 PLAN: - screen for autoimmune disease - start esbiert for IPF, check monthly CBC,CMP., discussed common side effects and photosensitivity - walk test on next visit - check PFTs in 4-6 months - RTC in 3 months Orders Placed This Encounter ALDOLASE BLD Standing Status: Future Number of Occurrences: 1 Standing Expiration Date: 02/16/2022 CBC Standing Status: Future Number of Occurrences: 1 Standing Expiration Date: 02/16/2022 CMP Standing Status: Future Number of Occurrences: 1 Standing Expiration Date: 02/16/2022 OSCAR Panel Standing Status: Future Number of Occurrences: 1 Standing Expiration Date: 02/16/2022 MARIPOSA Standing Status: Future Number of Occurrences: 1 Standing Expiration Date: 02/16/2022 Rheumatoid Factor Standing Status: Future Number of Occurrences: 1 Standing Expiration Date: 02/16/2022 CK Standing Status: Future Number of Occurrences: 1 Standing Expiration Date: 02/16/2022 CCP Standing Status: Future Number of Occurrences: 1 Standing Expiration Date: 02/16/2022 SSA Standing Status: Future Number of Occurrences: 1 Standing Expiration Date: 02/16/2022 SSB Standing Status: Future Number of Occurrences: 1 Standing Expiration Date: 02/16/2022 ANCA Standing Status: Future Number of Occurrences: 1 Standing Expiration Date: 02/16/2022 POLYMYOSITIS AND DERMATOMYOSITIS PANEL Standing Status: Future Number of Occurrences: 1 Standing Expiration Date: 02/16/2022 SCLERODERMA IGG AB Standing Status: Future Number of Occurrences: 1 Standing Expiration Date: 02/16/2022 CBC with Differential Standing Status: Standing Number of Occurrences: 11 Standing Expiration Date: 12/17/2022 COMP METABOLIC PANEL Standing Status: Standing Number of Occurrences: 11 Standing Expiration Date: 12/17/2022 ADULT SIX MINUTE WALK [[id number]] Order Specific Question: Should this patient be seen in a Pediatric Lab? Answer: No pirfenidone (ESBRIET) 267 mg capsule Sig: Days 1 to 7: 267 mg 3 times daily (total dose: 801 mg/day)\ Days 8 to 14: 534 mg 3 times daily (total dose: 1,602 mg/day) Day 15 and thereafter: 801 mg 3 times daily (total dose: 2,403 mg/day) Dispense: 180 capsule Refill: 11 Thank you again for allowing me to participate in the care of Gagandeep Duarte along with you. Please do not hesitate to call me with any questions. Best Regards, Nancy Sales MD, [facility] Staff Physician Respiratory [place] I spent 60 minutes on this encounter which includes time spent on face to face encounter, counseling and coordinating care regarding interpretation of symptoms and tests and diagnostic and therapeutic options and charting on the day of the visit. This note was generated with voice recognition software and may contain errors, including spelling, grammar, syntax and misrecognition of what was dictated, that are not fully corrected. documented in this encounter [facility] 12-05-2021 Miscellaneous Notes Noted Pt called and is notified of providers results and instructions. Pt voices understanding. Pt was put through to scheduling to get an LIVIA appointment scheduled with Pulmonology. Fara Arshad RN Hi Mr Gagandeep, I am very sorry to note that your ct of the chest was suggestive of Interstitial lung disease, great on the right than left. I would like an livia apt, if he can get his family or himself to drive [place], would like for him to get that done. documented in this encounter [facility] 12-05-2021 Miscellaneous Notes Addended by: ONEL ZAVALA on: 12/05/2021 11:09 AM Modules accepted: Orders ummary: New ILD-Internal Interstitial Lung Disease Referral Intake Gagandeep Marion Duarte [id number] December 05, 2021 10:43 AM Schedulers: --Please schedule patient with (ILD physicians: Dr. Arron Farr, Dr. Sky Amaya, Dr. Nelson Livingston, Dr. Adriane Erickson, Dr. Geovanny Subramanian, Dr. Emily Tanner, Dr. Cullen Hollis, Dr. Ned Garcia, Dr. Harvey Ying, Dr Nancy Sales, or Dr. Greg Sherman.) --Testing needed 1) [place] Consult information: Referred by: Dr Lee Office name/city: [facility] Diagnosis: IPF CT chest:Yes date of last: 12/04/21 where was this performed?: [facility] Biopsy(Surgical or transbronchial): No type: date: where was this performed?: Current or past treatment (for the ILD diagnosis): None Have you ever been told that you have scleroderma? No Have you been told by your physician that your lung disease is due to an occupational or work exposure? No Have you ever been deployed? No *Please remember to give the authorization for release of medical records to your doctor(s), and also obtain your CT(s) on a disc from the radiology department and hand carry this to your appointment. Onel Zavala RN documented in this encounter [facility] 12-04-2021 History of Presen t illness Narrative Radiology Service Progress Note PATIENT NAME: Gagandeep Duarte DATE OF SERVICE: December 04, 2021 TIME: 3:49 PM PATIENT IDENTITY VERIFICATION COMPLETED USING TWO (2) IDENTIFIERS: Name and Date of confirmed by patient verbally. FALL SCREENING: Has the patient had 2 falls in the last year or 1 fall with injury or currently using an Ambulatory Assistive Device (Walker, Cane, Wheelchair, Crutches, etc.)? No PATIENT GENDER DATA: Male PATIENT RELEVANT IMPLANT DATA REVIEWED: Not Applicable RADIOLOGY DEPARTMENT: CT; Exam(s) Completed: Chest PERIPHERAL IV DATA: Not applicable SIGNED BY: RT Mariano(Marion) December 04, 2021 3:49 PM documented in this encounter [facility] 11-23-2021 Miscellaneous Notes Gagandeep Duarte was sent MyChart message and reminded to test INR today or as soon as possible. Deisy Naylor RPh Patient due to test INR today. Will continue to monitor for results. Deisy Naylor RPh documented in this encounter [facility] 11-19-2021 History of Presen t illness Narrative INSIGHT CDM TELEPHONIC OUTREACH Provider Action/FYI: Routed to Dr. Lee Call to Pt to verify CHF or other symptom status, instructed to contact PCP/ Cardiology related to edema. (Pt reported on 11/18/21 Insight questionnaire new or worsening swelling of legs, feet or ankles) Contact made with patient: No - Left message Hello my name is Makayla Maldonado RN your Parts Advisor from the [facility] I am calling today for your bi-weekly check in. I am sorry I missed your call. I will reach out to you again tomorrow. (if the third call I will reach out to you again next week) Enter next patient outreach date for the following business day using the Track Pt Outreach. End outreach. Makayla Maldonado RN November 19, 2021 2:18 PM documented in this encounter [facility] 11-18-2021 History of Presen t illness Narrative INSIGHT CDM ESCALATION FYI: Attempted to contact pt for Insight escalation. Unable to contact, lm on . message sent. Question 11/18/2021 9:48 AM EDT - Filed by Patient Do you have new or worse shortness of breath with activity? No Do you have new or worsening swelling of legs, feet or ankles? Yes Do you have new or worsening trouble breathing while lying flat? No Do you check your blood pressure at home? No Do you check your daily weight at home? Yes Have you noticed a sudden gain in weight greater than 3 pounds in 1 day, or 3 pounds in 1 week? No Question 11/18/2021 9:53 AM EDT - Filed by Patient Do you have new or worse shortness of breath with activity? No Do you have new or worsening swelling of legs, feet or ankles? Yes Do you have new or worsening trouble breathing while lying flat? No Message received via: InSight - No contact made with patient Left Message for PatientRebekah Stokes my name is Shayna Dupree RN from the [facility]. I am calling about your responses to our InSight Home Monitoring questionnaire. Sorry I am not able to speak with you. If you have a problem that needs to be addressed by your physician please contact your PCP office End Outreach documented in this encounter [facility] 11-05-2021 Miscellaneous Notes Pt notified and will have rx transferred to [place]. Jillian Gallardo Erin Quinonez APRN.TIRE [employer]OTTER JN Needs to take as prescribed twice a day. Thank you! Message text Patient calling and states he is currently in [place] and will be there for another week. He is supposed to be taking his Coreg 1 tablet in the morning and 1 in the evening. Patient does not have enough medication to take twice a day and has only been taking it at night. Patient is asking if he continue just taking it at night or do you want him to take it twice a day? Patient states he will not need an Rx sent. He has already spoke with [facility] and they can transfer his Rx there. documented in this encounter [facility] 03-19-2021 Miscellaneous Notes Gagandeep Duarte was called and reminded to test INR today or as soon as possible. Patient was due to test INR today. Will continue to monitor for results. documented in this encounter [facility] documented as of this encounter (statuses as of 11/05/2021) 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 On coumadin since. He needs to be in the 2.5 to 3.5. He has been on 2.5 on all days except Wed and sat of 3.0. And for 22 years he has been good on this dose Last Assessment & Plan: The patient has a [facility] [place] valve in 1989. On coumadin since. He needs to be in the 2.5 to 3.5. He has been on 2.5 on all days except Wednesday and sat of 3.0. And for 22 years he has been good on this dose 2 days ago he was 2.2, which not therapeutic for him. documented as of this encounter (statuses as of 11/18/2021) 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 On coumadin since. He needs to be in the 2.5 to 3.5. He has been on 2.5 on all days except Wednesday and sat of 3.0. And for 22 years he has been good on this dose Last Assessment & Plan: The patient has a [facility] valve in 1989. On coumadin since. He needs to be in the 2.5 to 3.5. He has been on 2.5 on all days except Wednesday and sat of 3.0. And for 22 years he has been good on this dose 2 days ago he was 2.2, which not therapeutic for him. documented as of this encounter (statuses as of 11/19/2021) 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 On coumadin since. He needs to be in the 2.5 to 3.5. He has been on 2.5 on all days except Wednesday and sat of 3.0. And for 22 years he has been good on this dose Last Assessment & Plan: The patient has a [facility] valve in 1989. On coumadin since. He needs to be in the 2.5 to 3.5. He has been on 2.5 on all days except Wednesday and sat of 3.0. And for 22 years he has been good on this dose 2 days ago he was 2.2, which not therapeutic for him. documented as of this encounter (statuses as of 11/19/2021) 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 On coumadin since. He needs to be in the 2.5 to 3.5. He has been on 2.5 on all days except Wednesday and sat of 3.0. And for 22 years he has been good on this dose Last Assessment & Plan: The patient has a [facility] valve in 1989. On coumadin since. He needs to be in the 2.5 to 3.5. He has been on 2.5 on all days except Wednesday and sat of 3.0. And for 22 years he has been good on this dose 2 days ago he was 2.2, which not therapeutic for him. documented as of this encounter (statuses as of 11/26/2021) 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 On coumadin since. He needs to be in the 2.5 to 3.5. He has been on 2.5 on all days except Wednesday and sat of 3.0. And for 22 years he has been good on this dose Last Assessment & Plan: The patient has a [facility] valve in 1989. On coumadin since. He needs to be in the 2.5 to 3.5. He has been on 2.5 on all days except Wednesday and sat of 3.0. And for 22 years he has been good on this dose 2 days ago he was 2.2, which not therapeutic for him. documented as of this encounter (statuses as of 12/05/2021) 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 On coumadin since. He needs to be in the 2.5 to 3.5. He has been on 2.5 on all days except Wednesday and sat of 3.0. And for 22 years he has been good on this dose Last Assessment & Plan: The patient has a [facility] valve in 1989. On coumadin since. He needs to be in the 2.5 to 3.5. He has been on 2.5 on all days except Wednesday and sat of 3.0. And for 22 years he has been good on this dose 2 days ago he was 2.2, which not therapeutic for him. documented as of this encounter (statuses as of 12/05/2021) 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 On coumadin since. He needs to be in the 2.5 to 3.5. He has been on 2.5 on all days except Wednesday and sat of 3.0. And for 22 years he has been good on this dose Last Assessment & Plan: The patient has a [facility] valve in 1989. On coumadin since. He needs to be in the 2.5 to 3.5. He has been on 2.5 on all days except Wednesday and sat of 3.0. And for 22 years he has been good on this dose 2 days ago he was 2.2, which not therapeutic for him. documented as of this encounter (statuses as of 12/05/2021) 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 On coumadin since. He needs to be in the 2.5 to 3.5. He has been on 2.5 on all days except Wednesday and sat of 3.0. And for 22 years he has been good on this dose Last Assessment & Plan: The patient has a [facility] valve in 1989. On coumadin since. He needs to be in the 2.5 to 3.5. He has been on 2.5 on all days except Wednesday and sat of 3.0. And for 22 years he has been good on this dose 2 days ago he was 2.2, which not therapeutic for him. documented as of this encounter (statuses as of 12/12/2021) 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 On coumadin since. He needs to be in the 2.5 to 3.5. He has been on 2.5 on all days except Wednesday and sat of 3.0. And for 22 years he has been good on this dose Last Assessment & Plan: The patient has a [facility] valve in 1989. On coumadin since. He needs to be in the 2.5 to 3.5. He has been on 2.5 on all days except Wednesday and sat of 3.0. And for 22 years he has been good on this dose 2 days ago he was 2.2, which not therapeutic for him. documented as of this encounter (statuses as of 12/17/2021) 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 On coumadin since. He needs to be in the 2.5 to 3.5. He has been on 2.5 on all days except Wednesday and sat of 3.0. And for 22 years he has been good on this dose Last Assessment & Plan: The patient has a [facility] valve in 1989. On coumadin since. He needs to be in the 2.5 to 3.5. He has been on 2.5 on all days except Wednesday and sat of 3.0. And for 22 years he has been good on this dose 2 days ago he was 2.2, which not therapeutic for him. documented as of this encounter (statuses as of 12/18/2021) 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 On coumadin since. He needs to be in the 2.5 to 3.5. He has been on 2.5 on all days except Wednesday and sat of 3.0. And for 22 years he has been good on this dose Last Assessment & Plan: The patient has a [facility] valve in 1989. On coumadin since. He needs to be in the 2.5 to 3.5. He has been on 2.5 on all days except Wednesday and sat of 3.0. And for 22 years he has been good on this dose 2 days ago he was 2.2, which not therapeutic for him. documented as of this encounter (statuses as of 12/20/2021) 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 On coumadin since. He needs to be in the 2.5 to 3.5. He has been on 2.5 on all days except Wednesday and sat of 3.0. And for 22 years he has been good on this dose Last Assessment & Plan: The patient has a [facility] valve in 1989. On coumadin since. He needs to be in the 2.5 to 3.5. He has been on 2.5 on all days except Wednesday and sat of 3.0. And for 22 years he has been good on this dose 2 days ago he was 2.2, which not therapeutic for him. documented as of this encounter (statuses as of 12/24/2021) 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 On coumadin since. He needs to be in the 2.5 to 3.5. He has been on 2.5 on all days except Wednesday and sat of 3.0. And for 22 years he has been good on this dose Last Assessment & Plan: The patient has a [facility] valve in 1989. On coumadin since. He needs to be in the 2.5 to 3.5. He has been on 2.5 on all days except Wednesday and sat of 3.0. And for 22 years he has been good on this dose 2 days ago he was 2.2, which not therapeutic for him. documented as of this encounter (statuses as of 12/27/2021) 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 On coumadin since. He needs to be in the 2.5 to 3.5. He has been on 2.5 on all days except Wednesday and sat of 3.0. And for 22 years he has been good on this dose Last Assessment & Plan: The patient has a [facility] valve in 1989. On coumadin since. He needs to be in the 2.5 to 3.5. He has been on 2.5 on all days except Wednesday and sat of 3.0. And for 22 years he has been good on this dose 2 days ago he was 2.2, which not therapeutic for him. documented as of this encounter (statuses as of 01/03/2022) 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 On coumadin since. He needs to be in the 2.5 to 3.5. He has been on 2.5 on all days except Wednesday and sat of 3.0. And for 22 years he has been good on this dose Last Assessment & Plan: The patient has a [facility] valve in 1989. On coumadin since. He needs to be in the 2.5 to 3.5. He has been on 2.5 on all days except Wednesday and sat of 3.0. And for 22 years he has been good on this dose 2 days ago he was 2.2, which not therapeutic for him. documented as of this encounter (statuses as of 01/08/2022) 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 On coumadin since. He needs to be in the 2.5 to 3.5. He has been on 2.5 on all days except Wednesday and sat of 3.0. And for 22 years he has been good on this dose Last Assessment & Plan: The patient has a [facility] valve in 1989. On coumadin since. He needs to be in the 2.5 to 3.5. He has been on 2.5 on all days except Wednesday and sat of 3.0. And for 22 years he has been good on this dose 2 days ago he was 2.2, which not therapeutic for him. documented as of this encounter (statuses as of 01/09/2022) 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 On coumadin since. He needs to be in the 2.5 to 3.5. He has been on 2.5 on all days except Wednesday and sat of 3.0. And for 22 years he has been good on this dose Last Assessment & Plan: The patient has a [facility] valve in 1989. On coumadin since. He needs to be in the 2.5 to 3.5. He has been on 2.5 on all days except Wednesday and sat of 3.0. And for 22 years he has been good on this dose 2 days ago he was 2.2, which not therapeutic for him. documented as of this encounter (statuses as of 01/10/2022) 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 On coumadin since. He needs to be in the 2.5 to 3.5. He has been on 2.5 on all days except Wednesday and sat of 3.0. And for 22 years he has been good on this dose Last Assessment & Plan: The patient has a [facility] valve in 1989. On coumadin since. He needs to be in the 2.5 to 3.5. He has been on 2.5 on all days except Wednesday and sat of 3.0. And for 22 years he has been good on this dose 2 days ago he was 2.2, which not therapeutic for him. documented as of this encounter (statuses as of 01/24/2022) 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 On coumadin since. He needs to be in the 2.5 to 3.5. He has been on 2.5 on all days except Wednesday and sat of 3.0. And for 22 years he has been good on this dose Last Assessment & Plan: The patient has a [facility] valve in 1989. On coumadin since. He needs to be in the 2.5 to 3.5. He has been on 2.5 on all days except Wednesday and sat of 3.0. And for 22 years he has been good on this dose 2 days ago he was 2.2, which not therapeutic for him. documented as of this encounter (statuses as of 01/31/2022) 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 On coumadin since. He needs to be in the 2.5 to 3.5. He has been on 2.5 on all days except Wednesday and sat of 3.0. And for 22 years he has been good on this dose Last Assessment & Plan: The patient has a [facility] valve in 1989. On coumadin since. He needs to be in the 2.5 to 3.5. He has been on 2.5 on all days except Wednesday and sat of 3.0. And for 22 years he has been good on this dose 2 days ago he was 2.2, which not therapeutic for him. documented as of this encounter (statuses as of 01/31/2022) 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 On coumadin since. He needs to be in the 2.5 to 3.5. He has been on 2.5 on all days except Wednesday and sat of 3.0. And for 22 years he has been good on this dose Last Assessment & Plan: The patient has a [facility] valve in 1989. On coumadin since. He needs to be in the 2.5 to 3.5. He has been on 2.5 on all days except Wednesday and sat of 3.0. And for 22 years he has been good on this dose 2 days ago he was 2.2, which not therapeutic for him. documented as of this encounter (statuses as of 02/06/2022) 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 On coumadin since. He needs to be in the 2.5 to 3.5. He has been on 2.5 on all days except Wednesday and sat of 3.0. And for 22 years he has been good on this dose Last Assessment & Plan: The patient has a [facility] valve in 1989. On coumadin since. He needs to be in the 2.5 to 3.5. He has been on 2.5 on all days except Wednesday and sat of 3.0. And for 22 years he has been good on this dose 2 days ago he was 2.2, which not therapeutic for him. documented as of this encounter (statuses as of 02/12/2022) 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 On coumadin since. He needs to be in the 2.5 to 3.5. He has been on 2.5 on all days except Wednesday and sat of 3.0. And for 22 years he has been good on this dose Last Assessment & Plan: The patient has a [facility] valve in 1989. On coumadin since. He needs to be in the 2.5 to 3.5. He has been on 2.5 on all days except Wednesday and sat of 3.0. And for 22 years he has been good on this dose 2 days ago he was 2.2, which not therapeutic for him. documented as of this encounter (statuses as of 02/23/2022) 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 On coumadin since. He needs to be in the 2.5 to 3.5. He has been on 2.5 on all days except Wednesday and sat of 3.0. And for 22 years he has been good on this dose Last Assessment & Plan: The patient has a [facility] valve in 1989. On coumadin since. He needs to be in the 2.5 to 3.5. He has been on 2.5 on all days except Wednesday and sat of 3.0. And for 22 years he has been good on this dose 2 days ago he was 2.2, which not therapeutic for him. documented as of this encounter (statuses as of 02/25/2022) 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 On coumadin since. He needs to be in the 2.5 to 3.5. He has been on 2.5 on all days except Wednesday and sat of 3.0. And for 22 years he has been good on this dose Last Assessment & Plan: The patient has a [facility] valve in 1989. On coumadin since. He needs to be in the 2.5 to 3.5. He has been on 2.5 on all days except Wednesday and sat of 3.0. And for 22 years he has been good on this dose 2 days ago he was 2.2, which not therapeutic for him. documented as of this encounter (statuses as of 02/28/2022) 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 On coumadin since. He needs to be in the 2.5 to 3.5. He has been on 2.5 on all days except Wednesday and sat of 3.0. And for 22 years he has been good on this dose Last Assessment & Plan: The patient has a [facility] valve in 1989. On coumadin since. He needs to be in the 2.5 to 3.5. He has been on 2.5 on all days except Wednesday and sat of 3.0. And for 22 years he has been good on this dose 2 days ago he was 2.2, which not therapeutic for him. documented as of this encounter (statuses as of 03/05/2022) 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 On coumadin since. He needs to be in the 2.5 to 3.5. He has been on 2.5 on all days except Wednesday and sat of 3.0. And for 22 years he has been good on this dose Last Assessment & Plan: The patient has a [facility] valve in 1989. On coumadin since. He needs to be in the 2.5 to 3.5. He has been on 2.5 on all days except Wednesday and sat of 3.0. And for 22 years he has been good on this dose 2 days ago he was 2.2, which not therapeutic for him. documented as of this encounter (statuses as of 03/06/2022) 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 On coumadin since. He needs to be in the 2.5 to 3.5. He has been on 2.5 on all days except Wednesday and sat of 3.0. And for 22 years he has been good on this dose Last Assessment & Plan: The patient has a [facility] valve in 1989. On coumadin since. He needs to be in the 2.5 to 3.5. He has been on 2.5 on all days except Wednesday and sat of 3.0. And for 22 years he has been good on this dose 2 days ago he was 2.2, which not therapeutic for him. documented as of this encounter (statuses as of 03/08/2022) 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 On coumadin since. He needs to be in the 2.5 to 3.5. He has been on 2.5 on all days except Wednesday and sat of 3.0. And for 22 years he has been good on this dose Last Assessment & Plan: The patient has a [facility] valve in 1989. On coumadin since. He needs to be in the 2.5 to 3.5. He has been on 2.5 on all days except Wednesday and sat of 3.0. And for 22 years he has been good on this dose 2 days ago he was 2.2, which not therapeutic for him. documented as of this encounter (statuses as of 03/08/2022) 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 On coumadin since. He needs to be in the 2.5 to 3.5. He has been on 2.5 on all days except Wednesday and sat of 3.0. And for 22 years he has been good on this dose Last Assessment & Plan: The patient has a [facility] valve in 1989. On coumadin since. He needs to be in the 2.5 to 3.5. He has been on 2.5 on all days except Wednesday and sat of 3.0. And for 22 years he has been good on this dose 2 days ago he was 2.2, which not therapeutic for him. documented as of this encounter (statuses as of 03/08/2022) 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 On coumadin since. He needs to be in the 2.5 to 3.5. He has been on 2.5 on all days except Wednesday and sat of 3.0. And for 22 years he has been good on this dose Last Assessment & Plan: The patient has a [facility] valve in 1989. On coumadin since. He needs to be in the 2.5 to 3.5. He has been on 2.5 on all days except Wednesday and sat of 3.0. And for 22 years he has been good on this dose 2 days ago he was 2.2, which not therapeutic for him. documented as of this encounter (statuses as of 03/08/2022) 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 On coumadin since. He needs to be in the 2.5 to 3.5. He has been on 2.5 on all days except Wednesday and sat of 3.0. And for 22 years he has been good on this dose Last Assessment & Plan: The patient has a [facility] valve in 1989. On coumadin since. He needs to be in the 2.5 to 3.5. He has been on 2.5 on all days except Wednesday and sat of 3.0. And for 22 years he has been good on this dose 2 days ago he was 2.2, which not therapeutic for him. documented as of this encounter (statuses as of 03/08/2022) 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 On coumadin since. He needs to be in the 2.5 to 3.5. He has been on 2.5 on all days except Wednesday and sat of 3.0. And for 22 years he has been good on this dose Last Assessment & Plan: The patient has a [facility] valve in 1989. On coumadin since. He needs to be in the 2.5 to 3.5. He has been on 2.5 on all days except Wednesday and sat of 3.0. And for 22 years he has been good on this dose 2 days ago he was 2.2, which not therapeutic for him. documented as of this encounter (statuses as of 03/08/2022) 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 On coumadin since. He needs to be in the 2.5 to 3.5. He has been on 2.5 on all days except Wednesday and sat of 3.0. And for 22 years he has been good on this dose Last Assessment & Plan: The patient has a [facility] valve in 1989. On coumadin since. He needs to be in the 2.5 to 3.5. He has been on 2.5 on all days except Wednesday and sat of 3.0. And for 22 years he has been good on this dose 2 days ago he was 2.2, which not therapeutic for him. documented as of this encounter (statuses as of 03/11/2022) 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 On coumadin since. He needs to be in the 2.5 to 3.5. He has been on 2.5 on all days except Wednesday and sat of 3.0. And for 22 years he has been good on this dose Last Assessment & Plan: The patient has a [facility] valve in 1989. On coumadin since. He needs to be in the 2.5 to 3.5. He has been on 2.5 on all days except Wednesday and sat of 3.0. And for 22 years he has been good on this dose 2 days ago he was 2.2, which not therapeutic for him. documented as of this encounter (statuses as of 03/11/2022) 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 On coumadin since. He needs to be in the 2.5 to 3.5. He has been on 2.5 on all days except Wednesday and sat of 3.0. And for 22 years he has been good on this dose Last Assessment & Plan: The patient has a [facility] valve in 1989. On coumadin since. He needs to be in the 2.5 to 3.5. He has been on 2.5 on all days except Wednesday and sat of 3.0. And for 22 years he has been good on this dose 2 days ago he was 2.2, which not therapeutic for him. documented as of this encounter (statuses as of 03/18/2022) 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 On coumadin since. He needs to be in the 2.5 to 3.5. He has been on 2.5 on all days except Wednesday and sat of 3.0. And for 22 years he has been good on this dose Last Assessment & Plan: The patient has a [facility] valve in 1989. On coumadin since. He needs to be in the 2.5 to 3.5. He has been on 2.5 on all days except Wednesday and sat of 3.0. And for 22 years he has been good on this dose 2 days ago he was 2.2, which not therapeutic for him. documented as of this encounter (statuses as of 03/21/2022) 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 On coumadin since. He needs to be in the 2.5 to 3.5. He has been on 2.5 on all days except Wednesday and sat of 3.0. And for 22 years he has been good on this dose Last Assessment & Plan: The patient has a [facility] valve in 1989. On coumadin since. He needs to be in the 2.5 to 3.5. He has been on 2.5 on all days except Wednesday and sat of 3.0. And for 22 years he has been good on this dose 2 days ago he was 2.2, which not therapeutic for him. documented as of this encounter (statuses as of 03/21/2022) 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 On coumadin since. He needs to be in the 2.5 to 3.5. He has been on 2.5 on all days except Wednesday and sat of 3.0. And for 22 years he has been good on this dose Last Assessment & Plan: The patient has a [facility] valve in 1989. On coumadin since. He needs to be in the 2.5 to 3.5. He has been on 2.5 on all days except Wednesday and sat of 3.0. And for 22 years he has been good on this dose 2 days ago he was 2.2, which not therapeutic for him. documented as of this encounter (statuses as of 03/21/2022) 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 On coumadin since. He needs to be in the 2.5 to 3.5. He has been on 2.5 on all days except Wednesday and sat of 3.0. And for 22 years he has been good on this dose Last Assessment & Plan: The patient has a [facility] valve in 1989. On coumadin since. He needs to be in the 2.5 to 3.5. He has been on 2.5 on all days except Wednesday and sat of 3.0. And for 22 years he has been good on this dose 2 days ago he was 2.2, which not therapeutic for him. documented as of this encounter (statuses as of 03/21/2022) 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 On coumadin since. He needs to be in the 2.5 to 3.5. He has been on 2.5 on all days except Wednesday and sat of 3.0. And for 22 years he has been good on this dose Last Assessment & Plan: The patient has a [facility] valve in 1989. On coumadin since. He needs to be in the 2.5 to 3.5. He has been on 2.5 on all days except Wednesday and sat of 3.0. And for 22 years he has been good on this dose 2 days ago he was 2.2, which not therapeutic for him. documented as of this encounter (statuses as of 03/22/2022) 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 On coumadin since. He needs to be in the 2.5 to 3.5. He has been on 2.5 on all days except Wednesday and sat of 3.0. And for 22 years he has been good on this dose Last Assessment & Plan: The patient has a [facility] valve in 1989. On coumadin since. He needs to be in the 2.5 to 3.5. He has been on 2.5 on all days except Wednesday and sat of 3.0. And for 22 years he has been good on this dose 2 days ago he was 2.2, which not therapeutic for him. documented as of this encounter (statuses as of 03/26/2022) 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 On coumadin since. He needs to be in the 2.5 to 3.5. He has been on 2.5 on all days except Wednesday and sat of 3.0. And for 22 years he has been good on this dose Last Assessment & Plan: The patient has a [facility] valve in 1989. On coumadin since. He needs to be in the 2.5 to 3.5. He has been on 2.5 on all days except Wednesday and sat of 3.0. And for 22 years he has been good on this dose 2 days ago he was 2.2, which not therapeutic for him. documented as of this encounter (statuses as of 03/27/2022) 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 On coumadin since. He needs to be in the 2.5 to 3.5. He has been on 2.5 on all days except Wednesday and sat of 3.0. And for 22 years he has been good on this dose Last Assessment & Plan: The patient has a [facility] valve in 1989. On coumadin since. He needs to be in the 2.5 to 3.5. He has been on 2.5 on all days except Wednesday and sat of 3.0. And for 22 years he has been good on this dose 2 days ago he was 2.2, which not therapeutic for him. documented as of this encounter (statuses as of 03/29/2022) 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 On coumadin since. He needs to be in the 2.5 to 3.5. He has been on 2.5 on all days except Wednesday and sat of 3.0. And for 22 years he has been good on this dose Last Assessment & Plan: The patient has a [facility] valve in 1989. On coumadin since. He needs to be in the 2.5 to 3.5. He has been on 2.5 on all days except Wednesday and sat of 3.0. And for 22 years he has been good on this dose 2 days ago he was 2.2, which not therapeutic for him. documented as of this encounter (statuses as of 04/01/2022) 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 On coumadin since. He needs to be in the 2.5 to 3.5. He has been on 2.5 on all days except Wednesday and sat of 3.0. And for 22 years he has been good on this dose Last Assessment & Plan: The patient has a [facility] valve in 1989. On coumadin since. He needs to be in the 2.5 to 3.5. He has been on 2.5 on all days except Wednesday and sat of 3.0. And for 22 years he has been good on this dose 2 days ago he was 2.2, which not therapeutic for him. documented as of this encounter (statuses as of 04/01/2022) 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 On coumadin since. He needs to be in the 2.5 to 3.5. He has been on 2.5 on all days except Wednesday and sat of 3.0. And for 22 years he has been good on this dose Last Assessment & Plan: The patient has a [facility] valve in 1989. On coumadin since. He needs to be in the 2.5 to 3.5. He has been on 2.5 on all days except Wednesday and sat of 3.0. And for 22 years he has been good on this dose 2 days ago he was 2.2, which not therapeutic for him. documented as of this encounter (statuses as of 04/16/2022) 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 On coumadin since. He needs to be in the 2.5 to 3.5. He has been on 2.5 on all days except Wednesday and sat of 3.0. And for 22 years he has been good on this dose Last Assessment & Plan: The patient has a [facility] valve in 1989. On coumadin since. He needs to be in the 2.5 to 3.5. He has been on 2.5 on all days except Wednesday and sat of 3.0. And for 22 years he has been good on this dose 2 days ago he was 2.2, which not therapeutic for him. documented as of this encounter (statuses as of 04/17/2022) 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 On coumadin since. He needs to be in the 2.5 to 3.5. He has been on 2.5 on all days except Wednes and sat of 3.0. And for 22 years he has been good on this dose Last Assessment & Plan: The patient has a [facility] valve in 1989. On coumadin since. He needs to be in the 2.5 to 3.5. He has been on 2.5 on all days except Wednesday and sat of 3.0. And for 22 years he has been good on this dose 2 days ago he was 2.2, which not therapeutic for him. documented as of this encounter (statuses as of 04/19/2022) 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 On coumadin since. He needs to be in the 2.5 to 3.5. He has been on 2.5 on all days except Wednesday and sat of 3.0. And for 22 years he has been good on this dose Last Assessment & Plan: The patient has a [facility] valve in 1989. On coumadin since. He needs to be in the 2.5 to 3.5. He has been on 2.5 on all days except Wednesday and sat of 3.0. And for 22 years he has been good on this dose 2 days ago he was 2.2, which not therapeutic for him. documented as of this encounter (statuses as of 04/22/2022) 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 On coumadin since. He needs to be in the 2.5 to 3.5. He has been on 2.5 on all days except Wednesday and sat of 3.0. And for 22 years he has been good on this dose Last Assessment & Plan: The patient has a [facility] valve in 1989. On coumadin since. He needs to be in the 2.5 to 3.5. He has been on 2.5 on all days except Wednesday and sat of 3.0. And for 22 years he has been good on this dose 2 days ago he was 2.2, which not therapeutic for him. documented as of this encounter (statuses as of 04/26/2022) 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 On coumadin since. He needs to be in the 2.5 to 3.5. He has been on 2.5 on all days except Wednesday and sat of 3.0. And for 22 years he has been good on this dose Last Assessment & Plan: The patient has a [facility] valve in 1989. On coumadin since. He needs to be in the 2.5 to 3.5. He has been on 2.5 on all days except Wednesday and sat of 3.0. And for 22 years he has been good on this dose 2 days ago he was 2.2, which not therapeutic for him. documented as of this encounter (statuses as of 05/02/2022) 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 On coumadin since. He needs to be in the 2.5 to 3.5. He has been on 2.5 on all days except Wednesday and sat of 3.0. And for 22 years he has been good on this dose Last Assessment & Plan: The patient has a [facility] valve in 1989. On coumadin since. He needs to be in the 2.5 to 3.5. He has been on 2.5 on all days except Wednesday and sat of 3.0. And for 22 years he has been good on this dose 2 days ago he was 2.2, which not therapeutic for him. documented as of this encounter (statuses as of 05/02/2022) 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 On coumadin since. He needs to be in the 2.5 to 3.5. He has been on 2.5 on all days except Wednesday and sat of 3.0. And for 22 years he has been good on this dose Last Assessment & Plan: The patient has a [facility] valve in 1989. On coumadin since. He needs to be in the 2.5 to 3.5. He has been on 2.5 on all days except Wednesday and sat of 3.0. And for 22 years he has been good on this dose 2 days ago he was 2.2, which not therapeutic for him. documented as of this encounter (statuses as of 05/14/2022) 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 On coumadin since. He needs to be in the 2.5 to 3.5. He has been on 2.5 on all days except Wednes and sat of 3.0. And for 22 years he has been good on this dose Last Assessment & Plan: The patient has a [facility] valve in 1989. On coumadin since. He needs to be in the 2.5 to 3.5. He has been on 2.5 on all days except Wednesday and sat of 3.0. And for 22 years he has been good on this dose 2 days ago he was 2.2, which not therapeutic for him. documented as of this encounter (statuses as of 05/15/2022) 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 On coumadin since. He needs to be in the 2.5 to 3.5. He has been on 2.5 on all days except Wednesday and sat of 3.0. And for 22 years he has been good on this dose Last Assessment & Plan: The patient has a [facility] valve in 1989. On coumadin since. He needs to be in the 2.5 to 3.5. He has been on 2.5 on all days except Wednesday and sat of 3.0. And for 22 years he has been good on this dose 2 days ago he was 2.2, which not therapeutic for him. documented as of this encounter (statuses as of 05/16/2022) 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 On coumadin since. He needs to be in the 2.5 to 3.5. He has been on 2.5 on all days except Wednesday and sat of 3.0. And for 22 years he has been good on this dose Last Assessment & Plan: The patient has a [facility] valve in 1989. On coumadin since. He needs to be in the 2.5 to 3.5. He has been on 2.5 on all days except Wednesday and sat of 3.0. And for 22 years he has been good on this dose 2 days ago he was 2.2, which not therapeutic for him. documented as of this encounter (statuses as of 05/27/2022) 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 On coumadin since. He needs to be in the 2.5 to 3.5. He has been on 2.5 on all days except Friday and sat of 3.0. And for 22 years he has been good on this dose Last Assessment & Plan: The patient has a [facility] valve in 1989. On coumadin since. He needs to be in the 2.5 to 3.5. He has been on 2.5 on all days except Wednesday and sat of 3.0. And for 22 years he has been good on this dose 2 days ago he was 2.2, which not therapeutic for him. documented as of this encounter (statuses as of 05/28/2022) 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 On coumadin since. He needs to be in the 2.5 to 3.5. He has been on 2.5 on all days except Wednesday and sat of 3.0. And for 22 years he has been good on this dose Last Assessment & Plan: The patient has a [facility] valve in 1989. On coumadin since. He needs to be in the 2.5 to 3.5. He has been on 2.5 on all days except Wednesday and sat of 3.0. And for 22 years he has been good on this dose 2 days ago he was 2.2, which not therapeutic for him. documented as of this encounter (statuses as of 05/29/2022) 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 On coumadin since. He needs to be in the 2.5 to 3.5. He has been on 2.5 on all days except Wednesday and sat of 3.0. And for 22 years he has been good on this dose Last Assessment & Plan: The patient has a [facility] valve in 1989. On coumadin since. He needs to be in the 2.5 to 3.5. He has been on 2.5 on all days except Wednesday and sat of 3.0. And for 22 years he has been good on this dose 2 days ago he was 2.2, which not therapeutic for him. documented as of this encounter (statuses as of 05/31/2022) 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 On coumadin since. He needs to be in the 2.5 to 3.5. He has been on 2.5 on all days except Friday and sat of 3.0. And for 22 years he has been good on this dose Last Assessment & Plan: The patient has a [facility] [employer] valve in 1989. On coumadin since. He needs to be in the 2.5 to 3.5. He has been on 2.5 on all days except Wednesday and sat of 3.0. And for 22 years he has been good on this dose 2 days ago he was 2.2, which not therapeutic for him. documented as of this encounter (statuses as of 06/05/2022) 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 On coumadin since. He needs to be in the 2.5 to 3.5. He has been on 2.5 on all days except Wednesday and sat of 3.0. And for 22 years he has been good on this dose Last Assessment & Plan: The patient has a [facility] valve in 1989. On coumadin since. He needs to be in the 2.5 to 3.5. He has been on 2.5 on all days except Wednesday and sat of 3.0. And for 22 years he has been good on this dose 2 days ago he was 2.2, which not therapeutic for him. documented as of this encounter (statuses as of 06/06/2022) 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 On coumadin since. He needs to be in the 2.5 to 3.5. He has been on 2.5 on all days except Wednesday and sat of 3.0. And for 22 years he has been good on this dose Last Assessment & Plan: The patient has a [facility] valve in 1989. On coumadin since. He needs to be in the 2.5 to 3.5. He has been on 2.5 on all days except Wednesday and sat of 3.0. And for 22 years he has been good on this dose 2 days ago he was 2.2, which not therapeutic for him. documented as of this encounter (statuses as of 06/07/2022) 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 On coumadin since. He needs to be in the 2.5 to 3.5. He has been on 2.5 on all days except Wednes and sat of 3.0. And for 22 years he has been good on this dose Last Assessment & Plan: The patient has a [facility] valve in 1989. On coumadin since. He needs to be in the 2.5 to 3.5. He has been on 2.5 on all days except Wednesday and sat of 3.0. And for 22 years he has been good on this dose 2 days ago he was 2.2, which not therapeutic for him. documented as of this encounter (statuses as of 06/17/2022) 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 On coumadin since. He needs to be in the 2.5 to 3.5. He has been on 2.5 on all days except Wednesday and sat of 3.0. And for 22 years he has been good on this dose Last Assessment & Plan: The patient has a [facility] valve in 1989. On coumadin since. He needs to be in the 2.5 to 3.5. He has been on 2.5 on all days except Wednesday and sat of 3.0. And for 22 years he has been good on this dose 2 days ago he was 2.2, which not therapeutic for him. documented as of this encounter (statuses as of 07/01/2022) 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 On coumadin since. He needs to be in the 2.5 to 3.5. He has been on 2.5 on all days except Wednesday and sat of 3.0. And for 22 years he has been good on this dose Last Assessment & Plan: The patient has a [facility] valve in 1989. On coumadin since. He needs to be in the 2.5 to 3.5. He has been on 2.5 on all days except Wednesday and sat of 3.0. And for 22 years he has been good on this dose 2 days ago he was 2.2, which not therapeutic for him. documented as of this encounter (statuses as of 07/08/2022) 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 On coumadin since. He needs to be in the 2.5 to 3.5. He has been on 2.5 on all days except Wednes and sat of 3.0. And for 22 years he has been good on this dose Last Assessment & Plan: The patient has a [facility] valve in 1989. On coumadin since. He needs to be in the 2.5 to 3.5. He has been on 2.5 on all days except Wednesday and sat of 3.0. And for 22 years he has been good on this dose 2 days ago he was 2.2, which not therapeutic for him. documented as of this encounter (statuses as of 07/18/2022) 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 On coumadin since. He needs to be in the 2.5 to 3.5. He has been on 2.5 on all days except Wednesday and sat of 3.0. And for 22 years he has been good on this dose Last Assessment & Plan: The patient has a [facility] valve in 1989. On coumadin since. He needs to be in the 2.5 to 3.5. He has been on 2.5 on all days except Wednesday and sat of 3.0. And for 22 years he has been good on this dose 2 days ago he was 2.2, which not therapeutic for him. documented as of this encounter (statuses as of 08/14/2022) 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 On coumadin since. He needs to be in the 2.5 to 3.5. He has been on 2.5 on all days except Wednesday and sat of 3.0. And for 22 years he has been good on this dose Last Assessment & Plan: The patient has a [facility] valve in 1989. On coumadin since. He needs to be in the 2.5 to 3.5. He has been on 2.5 on all days except Wednesday and sat of 3.0. And for 22 years he has been good on this dose 2 days ago he was 2.2, which not therapeutic for him. documented as of this encounter (statuses as of 08/15/2022) 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 On coumadin since. He needs to be in the 2.5 to 3.5. He has been on 2.5 on all days except Wed and sat of 3.0. And for 22 years he has been good on this dose Last Assessment & Plan: The patient has a [facility] valve in 1989. On coumadin since. He needs to be in the 2.5 to 3.5. He has been on 2.5 on all days except Wednesday and sat of 3.0. And for 22 years he has been good on this dose 2 days ago he was 2.2, which not therapeutic for him. documented as of this encounter (statuses as of 08/15/2022) 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 On coumadin since. He needs to be in the 2.5 to 3.5. He has been on 2.5 on all days except Wednesday and sat of 3.0. And for 22 years he has been good on this dose Last Assessment & Plan: The patient has a [facility] valve in 1989. On coumadin since. He needs to be in the 2.5 to 3.5. He has been on 2.5 on all days except Wednesday and sat of 3.0. And for 22 years he has been good on this dose 2 days ago he was 2.2, which not therapeutic for him. documented as of this encounter (statuses as of 08/21/2022) 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 On coumadin since. He needs to be in the 2.5 to 3.5. He has been on 2.5 on all days except Wednesday and sat of 3.0. And for 22 years he has been good on this dose Last Assessment & Plan: The patient has a [facility] valve in 1989. On coumadin since. He needs to be in the 2.5 to 3.5. He has been on 2.5 on all days except Wednesday and sat of 3.0. And for 22 years he has been good on this dose 2 days ago he was 2.2, which not therapeutic for him. documented as of this encounter (statuses as of 08/21/2022) 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 On coumadin since. He needs to be in the 2.5 to 3.5. He has been on 2.5 on all days except Friday and sat of 3.0. And for 22 years he has been good on this dose Last Assessment & Plan: The patient has a [facility] valve in 1989. On coumadin since. He needs to be in the 2.5 to 3.5. He has been on 2.5 on all days except Wednes and sat of 3.0. And for 22 years he has been good on this dose 2 days ago he was 2.2, which not therapeutic for him. documented as of this encounter (statuses as of 08/22/2022) 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 On coumadin since. He needs to be in the 2.5 to 3.5. He has been on 2.5 on all days except Wednesday and sat of 3.0. And for 22 years he has been good on this dose Last Assessment & Plan: The patient has a [facility] valve in 1989. On coumadin since. He needs to be in the 2.5 to 3.5. He has been on 2.5 on all days except Wednesday and sat of 3.0. And for 22 years he has been good on this dose 2 days ago he was 2.2, which not therapeutic for him. documented as of this encounter (statuses as of 08/22/2022) 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 On coumadin since. He needs to be in the 2.5 to 3.5. He has been on 2.5 on all days except Wednesday and sat of 3.0. And for 22 years he has been good on this dose Last Assessment & Plan: The patient has a [facility] valve in 1989. On coumadin since. He needs to be in the 2.5 to 3.5. He has been on 2.5 on all days except Wednesday and sat of 3.0. And for 22 years he has been good on this dose 2 days ago he was 2.2, which not therapeutic for him. documented as of this encounter (statuses as of 08/26/2022) 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 On coumadin since. He needs to be in the 2.5 to 3.5. He has been on 2.5 on all days except Friday and sat of 3.0. And for 22 years he has been good on this dose Last Assessment & Plan: The patient has a [facility] valve in 1989. On coumadin since. He needs to be in the 2.5 to 3.5. He has been on 2.5 on all days except Wednesday and sat of 3.0. And for 22 years he has been good on this dose 2 days ago he was 2.2, which not therapeutic for him. documented as of this encounter (statuses as of 08/29/2022) 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 On coumadin since. He needs to be in the 2.5 to 3.5. He has been on 2.5 on all days except Wednesday and sat of 3.0. And for 22 years he has been good on this dose Last Assessment & Plan: The patient has a [facility] valve in 1989. On coumadin since. He needs to be in the 2.5 to 3.5. He has been on 2.5 on all days except Wednesday and sat of 3.0. And for 22 years he has been good on this dose 2 days ago he was 2.2, which not therapeutic for him. documented as of this encounter (statuses as of 08/30/2022) 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 On coumadin since. He needs to be in the 2.5 to 3.5. He has been on 2.5 on all days except Wednesday and sat of 3.0. And for 22 years he has been good on this dose Last Assessment & Plan: The patient has a [facility] valve in 1989. On coumadin since. He needs to be in the 2.5 to 3.5. He has been on 2.5 on all days except Wednesday and sat of 3.0. And for 22 years he has been good on this dose 2 days ago he was 2.2, which not therapeutic for him. documented as of this encounter (statuses as of 09/09/2022) 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 On coumadin since. He needs to be in the 2.5 to 3.5. He has been on 2.5 on all days except Wednes and sat of 3.0. And for 22 years he has been good on this dose Last Assessment & Plan: The patient has a [facility] valve in 1989. On coumadin since. He needs to be in the 2.5 to 3.5. He has been on 2.5 on all days except Wednesday and sat of 3.0. And for 22 years he has been good on this dose 2 days ago he was 2.2, which not therapeutic for him. documented as of this encounter (statuses as of 09/12/2022) 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 On coumadin since. He needs to be in the 2.5 to 3.5. He has been on 2.5 on all days except Wednesday and sat of 3.0. And for 22 years he has been good on this dose Last Assessment & Plan: The patient has a [facility] valve in 1989. On coumadin since. He needs to be in the 2.5 to 3.5. He has been on 2.5 on all days except Wednesday and sat of 3.0. And for 22 years he has been good on this dose 2 days ago he was 2.2, which not therapeutic for him. documented as of this encounter (statuses as of 09/13/2022) 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 On coumadin since. He needs to be in the 2.5 to 3.5. He has been on 2.5 on all days except Wednesday and sat of 3.0. And for 22 years he has been good on this dose Last Assessment & Plan: The patient has a [facility] valve in 1989. On coumadin since. He needs to be in the 2.5 to 3.5. He has been on 2.5 on all days except Wednesday and sat of 3.0. And for 22 years he has been good on this dose 2 days ago he was 2.2, which not therapeutic for him. documented as of this encounter (statuses as of 10/04/2022) 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 On coumadin since. He needs to be in the 2.5 to 3.5. He has been on 2.5 on all days except Friday and sat of 3.0. And for 22 years he has been good on this dose Last Assessment & Plan: The patient has a [facility] valve in 1989. On coumadin since. He needs to be in the 2.5 to 3.5. He has been on 2.5 on all days except Wed and sat of 3.0. And for 22 years he has been good on this dose 2 days ago he was 2.2, which not therapeutic for him. documented as of this encounter (statuses as of 10/09/2022) 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 On coumadin since. He needs to be in the 2.5 to 3.5. He has been on 2.5 on all days except Wednesday and sat of 3.0. And for 22 years he has been good on this dose Last Assessment & Plan: The patient has a [facility] valve in 1989. On coumadin since. He needs to be in the 2.5 to 3.5. He has been on 2.5 on all days except Wednesday and sat of 3.0. And for 22 years he has been good on this dose 2 days ago he was 2.2, which not therapeutic for him. documented as of this encounter (statuses as of 10/14/2022) 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 On coumadin since. He needs to be in the 2.5 to 3.5. He has been on 2.5 on all days except Wednesday and sat of 3.0. And for 22 years he has been good on this dose Last Assessment & Plan: The patient has a [facility] valve in 1989. On coumadin since. He needs to be in the 2.5 to 3.5. He has been on 2.5 on all days except Wednesday and sat of 3.0. And for 22 years he has been good on this dose 2 days ago he was 2.2, which not therapeutic for him. documented as of this encounter (statuses as of 10/15/2022) 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 On coumadin since. He needs to be in the 2.5 to 3.5. He has been on 2.5 on all days except Friday and sat of 3.0. And for 22 years he has been good on this dose Last Assessment & Plan: The patient has a [facility] valve in 1989. On coumadin since. He needs to be in the 2.5 to 3.5. He has been on 2.5 on all days except Friday and sat of 3.0. And for 22 years he has been good on this dose 2 days ago he was 2.2, which not therapeutic for him. documented as of this encounter (statuses as of 10/17/2022) 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 On coumadin since. He needs to be in the 2.5 to 3.5. He has been on 2.5 on all days except Wednesday and sat of 3.0. And for 22 years he has been good on this dose Last Assessment & Plan: The patient has a [facility] valve in 1989. On coumadin since. He needs to be in the 2.5 to 3.5. He has been on 2.5 on all days except Wednesday and sat of 3.0. And for 22 years he has been good on this dose 2 days ago he was 2.2, which not therapeutic for him. documented as of this encounter (statuses as of 10/21/2022) 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 On coumadin since. He needs to be in the 2.5 to 3.5. He has been on 2.5 on all days except Wednesday and sat of 3.0. And for 22 years he has been good on this dose Last Assessment & Plan: The patient has a [facility] valve in 1989. On coumadin since. He needs to be in the 2.5 to 3.5. He has been on 2.5 on all days except Wednesday and sat of 3.0. And for 22 years he has been good on this dose 2 days ago he was 2.2, which not therapeutic for him. documented as of this encounter (statuses as of 10/22/2022) 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 On coumadin since. He needs to be in the 2.5 to 3.5. He has been on 2.5 on all days except Friday and sat of 3.0. And for 22 years he has been good on this dose Last Assessment & Plan: The patient has a [facility] valve in 1989. On coumadin since. He needs to be in the 2.5 to 3.5. He has been on 2.5 on all days except Wed and sat of 3.0. And for 22 years he has been good on this dose 2 days ago he was 2.2, which not therapeutic for him. documented as of this encounter (statuses as of 10/22/2022) 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 On coumadin since. He needs to be in the 2.5 to 3.5. He has been on 2.5 on all days except Wednesday and sat of 3.0. And for 22 years he has been good on this dose Last Assessment & Plan: The patient has a [facility] valve in 1989. On coumadin since. He needs to be in the 2.5 to 3.5. He has been on 2.5 on all days except Wednesday and sat of 3.0. And for 22 years he has been good on this dose 2 days ago he was 2.2, which not therapeutic for him. documented as of this encounter (statuses as of 11/04/2022) 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 On coumadin since. He needs to be in the 2.5 to 3.5. He has been on 2.5 on all days except Wednesday and sat of 3.0. And for 22 years he has been good on this dose Last Assessment & Plan: The patient has a [facility] valve in 1989. On coumadin since. He needs to be in the 2.5 to 3.5. He has been on 2.5 on all days except Wednesday and sat of 3.0. And for 22 years he has been good on this dose 2 days ago he was 2.2, which not therapeutic for him. documented as of this encounter (statuses as of 11/04/2022) 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 On coumadin since. He needs to be in the 2.5 to 3.5. He has been on 2.5 on all days except Wednes and sat of 3.0. And for 22 years he has been good on this dose Last Assessment & Plan: The patient has a [facility] valve in 1989. On coumadin since. He needs to be in the 2.5 to 3.5. He has been on 2.5 on all days except Wednesday and sat of 3.0. And for 22 years he has been good on this dose 2 days ago he was 2.2, which not therapeutic for him. documented as of this encounter (statuses as of 11/12/2022) 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 On coumadin since. He needs to be in the 2.5 to 3.5. He has been on 2.5 on all days except Wednesday and sat of 3.0. And for 22 years he has been good on this dose Last Assessment & Plan: The patient has a [facility] valve in 1989. On coumadin since. He needs to be in the 2.5 to 3.5. He has been on 2.5 on all days except Wednesday and sat of 3.0. And for 22 years he has been good on this dose 2 days ago he was 2.2, which not therapeutic for him. documented as of this encounter (statuses as of 11/21/2022) 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 On coumadin since. He needs to be in the 2.5 to 3.5. He has been on 2.5 on all days except Wednesday and sat of 3.0. And for 22 years he has been good on this dose Last Assessment & Plan: The patient has a [facility] valve in 1989. On coumadin since. He needs to be in the 2.5 to 3.5. He has been on 2.5 on all days except Wednesday and sat of 3.0. And for 22 years he has been good on this dose 2 days ago he was 2.2, which not therapeutic for him. documented as of this encounter (statuses as of 11/23/2022) 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 On coumadin since. He needs to be in the 2.5 to 3.5. He has been on 2.5 on all days except Wednesday and sat of 3.0. And for 22 years he has been good on this dose Last Assessment & Plan: The patient has a [facility] valve in 1989. On coumadin since. He needs to be in the 2.5 to 3.5. He has been on 2.5 on all days except Wednesday and sat of 3.0. And for 22 years he has been good on this dose 2 days ago he was 2.2, which not therapeutic for him. documented as of this encounter (statuses as of 11/25/2022) 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 On coumadin since. He needs to be in the 2.5 to 3.5. He has been on 2.5 on all days except Wednesday and sat of 3.0. And for 22 years he has been good on this dose Last Assessment & Plan: The patient has a [facility] valve in 1989. On coumadin since. He needs to be in the 2.5 to 3.5. He has been on 2.5 on all days except Wednesday and sat of 3.0. And for 22 years he has been good on this dose 2 days ago he was 2.2, which not therapeutic for him. documented as of this encounter (statuses as of 11/25/2022) 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 On coumadin since. He needs to be in the 2.5 to 3.5. He has been on 2.5 on all days except Wednesday and sat of 3.0. And for 22 years he has been good on this dose Last Assessment & Plan: The patient has a [facility] valve in 1989. On coumadin since. He needs to be in the 2.5 to 3.5. He has been on 2.5 on all days except Wednesday and sat of 3.0. And for 22 years he has been good on this dose 2 days ago he was 2.2, which not therapeutic for him. documented as of this encounter (statuses as of 12/13/2022) 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 On coumadin since. He needs to be in the 2.5 to 3.5. He has been on 2.5 on all days except Wednesday and sat of 3.0. And for 22 years he has been good on this dose Last Assessment & Plan: The patient has a [facility] valve in 1989. On coumadin since. He needs to be in the 2.5 to 3.5. He has been on 2.5 on all days except Wednesday and sat of 3.0. And for 22 years he has been good on this dose 2 days ago he was 2.2, which not therapeutic for him. documented as of this encounter (statuses as of 12/13/2022) 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 On coumadin since. He needs to be in the 2.5 to 3.5. He has been on 2.5 on all days except Wednesday and sat of 3.0. And for 22 years he has been good on this dose Last Assessment & Plan: The patient has a [facility] valve in 1989. On coumadin since. He needs to be in the 2.5 to 3.5. He has been on 2.5 on all days except Wednesday and sat of 3.0. And for 22 years he has been good on this dose 2 days ago he was 2.2, which not therapeutic for him. documented as of this encounter (statuses as of 12/17/2022) 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 On coumadin since. He needs to be in the 2.5 to 3.5. He has been on 2.5 on all days except Wednesday and sat of 3.0. And for 22 years he has been good on this dose Last Assessment & Plan: The patient has a [facility] valve in 1989. On coumadin since. He needs to be in the 2.5 to 3.5. He has been on 2.5 on all days except Wednesday and sat of 3.0. And for 22 years he has been good on this dose 2 days ago he was 2.2, which not therapeutic for him. documented as of this encounter (statuses as of 12/17/2022) 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 On coumadin since. He needs to be in the 2.5 to 3.5. He has been on 2.5 on all days except Wednesday and sat of 3.0. And for 22 years he has been good on this dose Last Assessment & Plan: The patient has a [facility] valve in 1989. On coumadin since. He needs to be in the 2.5 to 3.5. He has been on 2.5 on all days except Wednesday and sat of 3.0. And for 22 years he has been good on this dose 2 days ago he was 2.2, which not therapeutic for him. documented as of this encounter (statuses as of 01/08/2023) 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 On coumadin since. He needs to be in the 2.5 to 3.5. He has been on 2.5 on all days except Wednesday and sat of 3.0. And for 22 years he has been good on this dose Last Assessment & Plan: The patient has a [facility] valve in 1989. On coumadin since. He needs to be in the 2.5 to 3.5. He has been on 2.5 on all days except Wednesday and sat of 3.0. And for 22 years he has been good on this dose 2 days ago he was 2.2, which not therapeutic for him. documented as of this encounter (statuses as of 01/10/2023) 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 On coumadin since. He needs to be in the 2.5 to 3.5. He has been on 2.5 on all days except Wednesday and sat of 3.0. And for 22 years he has been good on this dose Last Assessment & Plan: The patient has a [facility] valve in 1989. On coumadin since. He needs to be in the 2.5 to 3.5. He has been on 2.5 on all days except Wednesday and sat of 3.0. And for 22 years he has been good on this dose 2 days ago he was 2.2, which not therapeutic for him. documented as of this encounter (statuses as of 01/14/2023) 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 On coumadin since. He needs to be in the 2.5 to 3.5. He has been on 2.5 on all days except Wednesday and sat of 3.0. And for 22 years he has been good on this dose Last Assessment & Plan: The patient has a [facility] valve in 1989. On coumadin since. He needs to be in the 2.5 to 3.5. He has been on 2.5 on all days except Wednesday and sat of 3.0. And for 22 years he has been good on this dose 2 days ago he was 2.2, which not therapeutic for him. documented as of this encounter (statuses as of 01/14/2023) 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 On coumadin since. He needs to be in the 2.5 to 3.5. He has been on 2.5 on all days except Wednesday and sat of 3.0. And for 22 years he has been good on this dose Last Assessment & Plan: The patient has a [facility] valve in 1989. On coumadin since. He needs to be in the 2.5 to 3.5. He has been on 2.5 on all days except Wednesday and sat of 3.0. And for 22 years he has been good on this dose 2 days ago he was 2.2, which not therapeutic for him. documented as of this encounter (statuses as of 01/24/2023) 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 On coumadin since. He needs to be in the 2.5 to 3.5. He has been on 2.5 on all days except Wednesday and sat of 3.0. And for 22 years he has been good on this dose Last Assessment & Plan: The patient has a [facility] valve in 1989. On coumadin since. He needs to be in the 2.5 to 3.5. He has been on 2.5 on all days except Wednesday and sat of 3.0. And for 22 years he has been good on this dose 2 days ago he was 2.2, which not therapeutic for him. documented as of this encounter (statuses as of 01/27/2023) 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 On coumadin since. He needs to be in the 2.5 to 3.5. He has been on 2.5 on all days except Wednesday and sat of 3.0. And for 22 years he has been good on this dose Last Assessment & Plan: The patient has a [facility] valve in 1989. On coumadin since. He needs to be in the 2.5 to 3.5. He has been on 2.5 on all days except Wednesday and sat of 3.0. And for 22 years he has been good on this dose 2 days ago he was 2.2, which not therapeutic for him. documented as of this encounter (statuses as of 01/29/2023) 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 On coumadin since. He needs to be in the 2.5 to 3.5. He has been on 2.5 on all days except Wednesday and sat of 3.0. And for 22 years he has been good on this dose Last Assessment & Plan: The patient has a [facility] valve in 1989. On coumadin since. He needs to be in the 2.5 to 3.5. He has been on 2.5 on all days except Wednesday and sat of 3.0. And for 22 years he has been good on this dose 2 days ago he was 2.2, which not therapeutic for him. documented as of this encounter (statuses as of 02/03/2023) 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 On coumadin since. He needs to be in the 2.5 to 3.5. He has been on 2.5 on all days except Wednesday and sat of 3.0. And for 22 years he has been good on this dose Last Assessment & Plan: The patient has a [facility] valve in 1989. On coumadin since. He needs to be in the 2.5 to 3.5. He has been on 2.5 on all days except Wednesday and sat of 3.0. And for 22 years he has been good on this dose 2 days ago he was 2.2, which not therapeutic for him. documented as of this encounter (statuses as of 02/04/2023) 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 On coumadin since. He needs to be in the 2.5 to 3.5. He has been on 2.5 on all days except Wednesday and sat of 3.0. And for 22 years he has been good on this dose Last Assessment & Plan: The patient has a [facility] valve in 1989. On coumadin since. He needs to be in the 2.5 to 3.5. He has been on 2.5 on all days except Wednesday and sat of 3.0. And for 22 years he has been good on this dose 2 days ago he was 2.2, which not therapeutic for him. documented as of this encounter (statuses as of 02/04/2023) 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 On coumadin since. He needs to be in the 2.5 to 3.5. He has been on 2.5 on all days except Wednesday and sat of 3.0. And for 22 years he has been good on this dose Last Assessment & Plan: The patient has a [facility] valve in 1989. On coumadin since. He needs to be in the 2.5 to 3.5. He has been on 2.5 on all days except Wednesday and sat of 3.0. And for 22 years he has been good on this dose 2 days ago he was 2.2, which not therapeutic for him. documented as of this encounter (statuses as of 02/12/2023) 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 On coumadin since. He needs to be in the 2.5 to 3.5. He has been on 2.5 on all days except Wednesday and sat of 3.0. And for 22 years he has been good on this dose Last Assessment & Plan: The patient has a [facility] valve in 1989. On coumadin since. He needs to be in the 2.5 to 3.5. He has been on 2.5 on all days except Wednesday and sat of 3.0. And for 22 years he has been good on this dose 2 days ago he was 2.2, which not therapeutic for him. documented as of this encounter (statuses as of 02/14/2023) 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 On coumadin since. He needs to be in the 2.5 to 3.5. He has been on 2.5 on all days except Wednesday and sat of 3.0. And for 22 years he has been good on this dose Last Assessment & Plan: The patient has a [facility] valve in 1989. On coumadin since. He needs to be in the 2.5 to 3.5. He has been on 2.5 on all days except Wednesday and sat of 3.0. And for 22 years he has been good on this dose 2 days ago he was 2.2, which not therapeutic for him. documented as of this encounter (statuses as of 02/26/2023) 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 On coumadin since. He needs to be in the 2.5 to 3.5. He has been on 2.5 on all days except Wednesday and sat of 3.0. And for 22 years he has been good on this dose Last Assessment & Plan: The patient has a [facility] valve in 1989. On coumadin since. He needs to be in the 2.5 to 3.5. He has been on 2.5 on all days except Wednesday and sat of 3.0. And for 22 years he has been good on this dose 2 days ago he was 2.2, which not therapeutic for him. documented as of this encounter (statuses as of 03/06/2023) 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 On coumadin since. He needs to be in the 2.5 to 3.5. He has been on 2.5 on all days except Wednesday and sat of 3.0. And for 22 years he has been good on this dose Last Assessment & Plan: The patient has a [facility] valve in 1989. On coumadin since. He needs to be in the 2.5 to 3.5. He has been on 2.5 on all days except Wednesday and sat of 3.0. And for 22 years he has been good on this dose 2 days ago he was 2.2, which not therapeutic for him. documented as of this encounter (statuses as of 03/07/2023) 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 On coumadin since. He needs to be in the 2.5 to 3.5. He has been on 2.5 on all days except Wednesday and sat of 3.0. And for 22 years he has been good on this dose Last Assessment & Plan: The patient has a [facility] valve in 1989. On coumadin since. He needs to be in the 2.5 to 3.5. He has been on 2.5 on all days except Wednesday and sat of 3.0. And for 22 years he has been good on this dose 2 days ago he was 2.2, which not therapeutic for him. documented as of this encounter (statuses as of 03/11/2023) 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 On coumadin since. He needs to be in the 2.5 to 3.5. He has been on 2.5 on all days except Wednesday and sat of 3.0. And for 22 years he has been good on this dose Last Assessment & Plan: The patient has a [facility] valve in 1989. On coumadin since. He needs to be in the 2.5 to 3.5. He has been on 2.5 on all days except Wednesday and sat of 3.0. And for 22 years he has been good on this dose 2 days ago he was 2.2, which not therapeutic for him. documented as of this encounter (statuses as of 03/14/2023) 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 On coumadin since. He needs to be in the 2.5 to 3.5. He has been on 2.5 on all days except Wednesday and sat of 3.0. And for 22 years he has been good on this dose Last Assessment & Plan: The patient has a [facility] valve in 1989. On coumadin since. He needs to be in the 2.5 to 3.5. He has been on 2.5 on all days except Wednesday and sat of 3.0. And for 22 years he has been good on this dose 2 days ago he was 2.2, which not therapeutic for him. documented as of this encounter (statuses as of 04/03/2023) 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 On coumadin since. He needs to be in the 2.5 to 3.5. He has been on 2.5 on all days except Friday and sat of 3.0. And for 22 years he has been good on this dose Last Assessment & Plan: The patient has a [facility] valve in 1989. On coumadin since. He needs to be in the 2.5 to 3.5. He has been on 2.5 on all days except Wednesday and sat of 3.0. And for 22 years he has been good on this dose 2 days ago he was 2.2, which not therapeutic for him. documented as of this encounter (statuses as of 04/04/2023) 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 On coumadin since. He needs to be in the 2.5 to 3.5. He has been on 2.5 on all days except Wednesday and sat of 3.0. And for 22 years he has been good on this dose Last Assessment & Plan: The patient has a [facility] valve in 1989. On coumadin since. He needs to be in the 2.5 to 3.5. He has been on 2.5 on all days except Wednesday and sat of 3.0. And for 22 years he has been good on this dose 2 days ago he was 2.2, which not therapeutic for him. documented as of this encounter (statuses as of 04/11/2023) 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 On coumadin since. He needs to be in the 2.5 to 3.5. He has been on 2.5 on all days except Wednesday and sat of 3.0. And for 22 years he has been good on this dose Last Assessment & Plan: The patient has a [facility] valve in 1989. On coumadin since. He needs to be in the 2.5 to 3.5. He has been on 2.5 on all days except Wednesday and sat of 3.0. And for 22 years he has been good on this dose 2 days ago he was 2.2, which not therapeutic for him. documented as of this encounter (statuses as of 04/12/2023) 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 On coumadin since. He needs to be in the 2.5 to 3.5. He has been on 2.5 on all days except Friday and sat of 3.0. And for 22 years he has been good on this dose Last Assessment & Plan: The patient has a [facility] valve in 1989. On coumadin since. He needs to be in the 2.5 to 3.5. He has been on 2.5 on all days except Friday and sat of 3.0. And for 22 years he has been good on this dose 2 days ago he was 2.2, which not therapeutic for him. documented as of this encounter (statuses as of 04/24/2023) 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 On coumadin since. He needs to be in the 2.5 to 3.5. He has been on 2.5 on all days except Wednesday and sat of 3.0. And for 22 years he has been good on this dose Last Assessment & Plan: The patient has a [facility] valve in 1989. On coumadin since. He needs to be in the 2.5 to 3.5. He has been on 2.5 on all days except Wednesday and sat of 3.0. And for 22 years he has been good on this dose 2 days ago he was 2.2, which not therapeutic for him. documented as of this encounter (statuses as of 04/30/2023) 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 On coumadin since. He needs to be in the 2.5 to 3.5. He has been on 2.5 on all days except Wednesday and sat of 3.0. And for 22 years he has been good on this dose Last Assessment & Plan: The patient has a [facility] valve in 1989. On coumadin since. He needs to be in the 2.5 to 3.5. He has been on 2.5 on all days except Wednesday and sat of 3.0. And for 22 years he has been good on this dose 2 days ago he was 2.2, which not therapeutic for him. documented as of this encounter (statuses as of 04/30/2023) 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 On coumadin since. He needs to be in the 2.5 to 3.5. He has been on 2.5 on all days except Friday and sat of 3.0. And for 22 years he has been good on this dose Last Assessment & Plan: The patient has a [facility] valve in 1989. On coumadin since. He needs to be in the 2.5 to 3.5. He has been on 2.5 on all days except Wednesday and sat of 3.0. And for 22 years he has been good on this dose 2 days ago he was 2.2, which not therapeutic for him. documented as of this encounter (statuses as of 05/19/2023) 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 On coumadin since. He needs to be in the 2.5 to 3.5. He has been on 2.5 on all days except Wednesday and sat of 3.0. And for 22 years he has been good on this dose Last Assessment & Plan: The patient has a [facility] valve in 1989. On coumadin since. He needs to be in the 2.5 to 3.5. He has been on 2.5 on all days except Wednesday and sat of 3.0. And for 22 years he has been good on this dose 2 days ago he was 2.2, which not therapeutic for him. documented as of this encounter (statuses as of 05/21/2023) 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 On coumadin since. He needs to be in the 2.5 to 3.5. He has been on 2.5 on all days except Wednesday and sat of 3.0. And for 22 years he has been good on this dose Last Assessment & Plan: The patient has a [facility] valve in 1989. On coumadin since. He needs to be in the 2.5 to 3.5. He has been on 2.5 on all days except Wednesday and sat of 3.0. And for 22 years he has been good on this dose 2 days ago he was 2.2, which not therapeutic for him. documented as of this encounter (statuses as of 05/23/2023) 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 On coumadin since. He needs to be in the 2.5 to 3.5. He has been on 2.5 on all days except Wednes and sat of 3.0. And for 22 years he has been good on this dose Last Assessment & Plan: The patient has a [facility] valve in 1989. On coumadin since. He needs to be in the 2.5 to 3.5. He has been on 2.5 on all days except Wednesday and sat of 3.0. And for 22 years he has been good on this dose 2 days ago he was 2.2, which not therapeutic for him. documented as of this encounter (statuses as of 06/09/2023) 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 On coumadin since. He needs to be in the 2.5 to 3.5. He has been on 2.5 on all days except Wednesday and sat of 3.0. And for 22 years he has been good on this dose Last Assessment & Plan: The patient has a [facility] valve in 1989. On coumadin since. He needs to be in the 2.5 to 3.5. He has been on 2.5 on all days except Wednesday and sat of 3.0. And for 22 years he has been good on this dose 2 days ago he was 2.2, which not therapeutic for him. documented as of this encounter (statuses as of 06/10/2023) 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 On coumadin since. He needs to be in the 2.5 to 3.5. He has been on 2.5 on all days except Wednesday and sat of 3.0. And for 22 years he has been good on this dose Last Assessment & Plan: The patient has a [facility] valve in 1989. On coumadin since. He needs to be in the 2.5 to 3.5. He has been on 2.5 on all days except Wednesday and sat of 3.0. And for 22 years he has been good on this dose 2 days ago he was 2.2, which not therapeutic for him. documented as of this encounter (statuses as of 06/10/2023) 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 On coumadin since. He needs to be in the 2.5 to 3.5. He has been on 2.5 on all days except Wednes and sat of 3.0. And for 22 years he has been good on this dose Last Assessment & Plan: The patient has a [facility] valve in 1989. On coumadin since. He needs to be in the 2.5 to 3.5. He has been on 2.5 on all days except Wednesday and sat of 3.0. And for 22 years he has been good on this dose 2 days ago he was 2.2, which not therapeutic for him. documented as of this encounter (statuses as of 06/13/2023) 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 On coumadin since. He needs to be in the 2.5 to 3.5. He has been on 2.5 on all days except Wednesday and sat of 3.0. And for 22 years he has been good on this dose Last Assessment & Plan: The patient has a [facility] valve in 1989. On coumadin since. He needs to be in the 2.5 to 3.5. He has been on 2.5 on all days except Wednesday and sat of 3.0. And for 22 years he has been good on this dose 2 days ago he was 2.2, which not therapeutic for him. documented as of this encounter (statuses as of 06/24/2023) 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 On coumadin since. He needs to be in the 2.5 to 3.5. He has been on 2.5 on all days except Wednesday and sat of 3.0. And for 22 years he has been good on this dose Last Assessment & Plan: The patient has a [facility] valve in 1989. On coumadin since. He needs to be in the 2.5 to 3.5. He has been on 2.5 on all days except Wednesday and sat of 3.0. And for 22 years he has been good on this dose 2 days ago he was 2.2, which not therapeutic for him. documented as of this encounter (statuses as of 07/16/2023) [facility] Diagnosis SOB (shortness of breath) Shortness of breath [facility] SOB (shortness of breath) Shortness of breath [facility] Diagnosis Shortness of breath Restrictive lung disease Other diseases of lung, not elsewhere classified Abnormal PFT Nonspecific abnormal results of pulmonary system function study [facility] Diagnosis Pulmonary fibrosis (HCC)- Primary Postinflammatory pulmonary fibrosis [facility] Diagnosis Anticoagulant long-term use- Primary Long-term (current) use of anticoagulants S/P MVR (mitral valve replacement) Heart valve replaced by other means [facility] Diagnosis IPF (idiopathic pulmonary fibrosis) (HCC)- Primary Idiopathic pulmonary fibrosis [facility] Diagnosis ILD (interstitial lung disease) (HCC)- Primary Postinflammatory pulmonary fibrosis [facility]* Diagnosis Dizziness- Primary Dizziness and giddiness Elevated BUN Other abnormal blood chemistry [facility] Diagnosis S/P MVR (mitral valve replacement) Heart valve replaced by other means [facility] Diagnosis ILD (interstitial lung disease) (HCC) Postinflammatory pulmonary fibrosis Rash Rash and other nonspecific skin eruption Dysphagia, unspecified type [facility] Diagnosis Traumatic injury of head, initial encounter- Primary [facility] Diagnosis ILD (interstitial lung disease) (HCC)- Primary Postinflammatory pulmonary fibrosis Rash Rash and other nonspecific skin eruption Dysphagia, unspecified type Alkaline phosphatase elevation Other nonspecific abnormal serum enzyme levels [facility] Diagnosis Laceration of other part of head without foreign body, subsequent encounter- Primary Visit for suture removal Encounter for removal of sutures [facility]* Diagnosis ILD (interstitial lung disease) (HCC) Postinflammatory pulmonary fibrosis Rash Rash and other nonspecific skin eruption Dysphagia, unspecified type [facility] Diagnosis Rash and nonspecific skin eruption- Primary Rash and other nonspecific skin eruption ILD (interstitial lung disease) (HCC) Postinflammatory pulmonary fibrosis Rash Rash and other nonspecific skin eruption Dysphagia, unspecified type [facility] this [facility] Diagnosis Elevated alkaline phosphatase level- Primary Other nonspecific abnormal serum enzyme levels [facility] this [facility] Diagnosis Anxiety and depression Dysthymic disorder [facility] this [facility] Diagnosis Anxiety and depression Dysthymic disorder [facility] this [facility] Diagnosis IPF (idiopathic pulmonary fibrosis) (HCC)- Primary Idiopathic pulmonary fibrosis [facility] this [facility] Diagnosis IPF (idiopathic pulmonary fibrosis) (HCC)- Primary Idiopathic pulmonary fibrosis [facility] this [facility]* Diagnosis Atrial fibrillation, unspecified type (HCC)- Primary [facility] this [facility] Diagnosis Impacted cerumen of left ear- Primary Impacted cerumen [facility] this [facility] Diagnosis Impacted cerumen of left ear- Primary Impacted cerumen [facility] this [facility]* Diagnosis Bilateral lower extremity edema Edema [facility]* Diagnosis APPOINTMENT CANCELLED- Primary [facility] this [facility]* Diagnosis S/P MVR (mitral valve replacement)- Primary Heart valve replaced by other means Chronic combined systolic and diastolic congestive heart failure (HCC) Chronic combined systolic and diastolic heart failure Cardiomyopathy, nonischemic (HCC) Other primary cardiomyopathies Permanent atrial fibrillation (HCC) Atrial fibrillation [facility] this [facility] Diagnosis Elevated alkaline phosphatase level Other nonspecific abnormal serum enzyme levels [facility] this [facility] Diagnosis S/P MVR (mitral valve replacement) Heart valve replaced by other means [facility] this [facility] Diagnosis ILD (interstitial lung disease) (HCC)- Primary Postinflammatory pulmonary fibrosis Thrombocytopenia (HCC) Thrombocytopenia, unspecified Permanent atrial fibrillation (HCC) Atrial fibrillation Presence of cardiac pacemaker Cardiac pacemaker in situ Cardiomyopathy, nonischemic (HCC) Other primary cardiomyopathies [facility] this encounter [facility]* Diagnosis Fall, initial encounter- Primary ILD (interstitial lung disease) (HCC) Postinflammatory pulmonary fibrosis Alkaline phosphatase elevation Other nonspecific abnormal serum enzyme levels [facility] this [facility]* Diagnosis Fall, initial encounter [facility] Diagnosis Anticoagulant long-term use- Primary Long-term (current) use of anticoagulants S/P MVR (mitral valve replacement) Heart valve replaced by other means [facility] Diagnosis Acute cough- Primary Other fatigue Acute non-recurrent sinusitis, unspecified location Chills Chills (without fever) Body aches Generalized pain Wheezing [facility] this [facility] Diagnosis Anticoagulant long-term use- Primary Long-term (current) use of anticoagulants S/P MVR (mitral valve replacement) Heart valve replaced by other means [facility]* Diagnosis Anxiety and depression Dysthymic disorder [facility] this [facility] Diagnosis Anticoagulant long-term use- Primary Long-term (current) use of anticoagulants S/P MVR (mitral valve replacement) Heart valve replaced by other means [facility] this [facility] Diagnosis Mixed hyperlipidemia [facility] this [facility]* Diagnosis S/P MVR (mitral valve replacement) Heart valve replaced by other means [facility] this [facility]* Diagnosis Atrial fibrillation, unspecified type (HCC)- Primary [facility]* Diagnosis Permanent atrial fibrillation (HCC)- Primary Atrial fibrillation At risk for stroke Other specified personal history presenting hazards to health Anticoagulant long-term use Long-term (current) use of anticoagulants Bradycardia Other specified cardiac dysrhythmias Presence of cardiac pacemaker Cardiac pacemaker in situ PVC (premature ventricular contraction) Other premature beats Cardiomyopathy, nonischemic (HCC) Other primary cardiomyopathies Chronic combined systolic and diastolic congestive heart failure (HCC) Chronic combined systolic and diastolic heart failure S/P MVR (mitral valve replacement) Heart valve replaced by other means documented in this encounter [facility] [place] [facility]* Diagnosis Interstitial lung disease (HCC)- Primary Postinflammatory pulmonary fibrosis Pulmonary fibrosis (HCC) Postinflammatory pulmonary fibrosis Anxiety and depression Dysthymic disorder Thrombocytopenia (HCC) Thrombocytopenia, unspecified ILD (interstitial lung disease) (HCC) Postinflammatory pulmonary fibrosis Permanent atrial fibrillation (HCC) Atrial fibrillation [facility] this encounter [facility]* Diagnosis IPF (idiopathic pulmonary fibrosis) (HCC)- Primary Idiopathic pulmonary fibrosis Interstitial pulmonary disease (HCC) Postinflammatory pulmonary fibrosis [facility] Diagnosis Anticoagulant long-term use- Primary Long-term (current) use of anticoagulants S/P MVR (mitral valve replacement) Heart valve replaced by other means [facility] Diagnosis Anticoagulant long-term use- Primary Long-term (current) use of anticoagulants S/P MVR (mitral valve replacement) Heart valve replaced by other means [facility] Diagnosis Anticoagulant long-term use- Primary Long-term (current) use of anticoagulants S/P MVR (mitral valve replacement) Heart valve replaced by other means [facility] Diagnosis Anticoagulant long-term use- Primary Long-term (current) use of anticoagulants S/P MVR (mitral valve replacement) Heart valve replaced by other means [facility] Diagnosis Anticoagulant long-term use- Primary Long-term (current) use of anticoagulants S/P MVR (mitral valve replacement) Heart valve replaced by other means [facility]* Diagnosis Mass of left lower extremity- Primary [facility]* Diagnosis IPF (idiopathic pulmonary fibrosis) (HCC)- Primary Idiopathic pulmonary fibrosis [facility]* Diagnosis Examination of participant in clinical trial- Primary [facility]* Diagnosis Chronic combined systolic and diastolic congestive heart failure (HCC)- Primary Chronic combined systolic and diastolic heart failure [facility]* Diagnosis Pulmonary fibrosis (HCC)- Primary Postinflammatory pulmonary fibrosis Anxiety and depression Dysthymic disorder Essential hypertension Unspecified essential hypertension [facility]* Diagnosis Interstitial lung disease (HCC)- Primary Postinflammatory pulmonary fibrosis Honeycomb lung Other diseases of lung, not elsewhere classified [facility]* Diagnosis Atrial fibrillation, unspecified type (HCC) [I48.91 (ICD-10-CM)]- Primary [facility]* Diagnosis Anticoagulant long-term use- Primary Long-term (current) use of anticoagulants S/P MVR (mitral valve replacement) Heart valve replaced by other means [facility] Diagnosis Anticoagulant long-term use- Primary Long-term (current) use of anticoagulants S/P MVR (mitral valve replacement) Heart valve replaced by other means [facility] this [facility] Diagnosis Other fatigue- Primary Increased thirst Polydipsia Abnormal glucose Other abnormal glucose Mixed hyperlipidemia Essential hypertension Unspecified essential hypertension [facility] this encounter [facility]* Diagnosis Interstitial pulmonary disease (HCC)- Primary Postinflammatory pulmonary fibrosis [facility] this [facility] Diagnosis Chronic combined systolic and diastolic congestive heart failure (HCC)- Primary Chronic combined systolic and diastolic heart failure Hypoxemia [facility] Diagnosis Elevated alkaline phosphatase level- Primary Other nonspecific abnormal serum enzyme levels Elevated serum GGT level Other nonspecific abnormal serum enzyme levels [facility] Diagnosis Anticoagulant long-term use- Primary Long-term (current) use of anticoagulants S/P MVR (mitral valve replacement) Heart valve replaced by other means [facility] this [facility] Diagnosis Anticoagulant long-term use- Primary Long-term (current) use of anticoagulants S/P MVR (mitral valve replacement) Heart valve replaced by other means [facility] Diagnosis Pulmonary fibrosis (HCC) Postinflammatory pulmonary fibrosis [facility] Diagnosis Pulmonary fibrosis (HCC) Postinflammatory pulmonary fibrosis [facility] Diagnosis Chronic combined systolic and diastolic congestive heart failure (HCC)- Primary Chronic combined systolic and diastolic heart failure [facility] this [facility] Diagnosis Chronic combined systolic and diastolic congestive heart failure (HCC)- Primary Chronic combined systolic and diastolic heart failure Elevated alkaline phosphatase level Other nonspecific abnormal serum enzyme levels Pulmonary fibrosis (HCC) Postinflammatory pulmonary fibrosis Permanent atrial fibrillation (HCC) Atrial fibrillation Other fatigue [facility] Anticoagulant long-term use- Primary Long-term (current) use of anticoagulants S/P MVR (mitral valve replacement) Heart valve replaced by other means [facility] Diagnosis Elevated alkaline phosphatase level- Primary Other nonspecific abnormal serum enzyme levels [facility] this [facility] Diagnosis Gross hematuria- Primary Hematuria, unspecified type [facility] Diagnosis Anticoagulant long-term use- Primary Long-term (current) use of anticoagulants S/P MVR (mitral valve replacement) Heart valve replaced by other means documented [facility] this [facility] Diagnosis Elevated alkaline phosphatase level- Primary Other nonspecific abnormal serum enzyme levels Elevated serum GGT level Other nonspecific abnormal serum enzyme levels Chronic eczematous otitis externa of both ears Hematuria, unspecified type documented [facility] this encounter [facility] Diagnosis Anticoagulant long-term use- Primary Long-term (current) use of anticoagulants S/P MVR (mitral valve replacement) Heart valve replaced by other means [facility] Outpatient Procedure (Routine) - Pending Review Specialty Diagnoses / Procedures Referred By Malick corrigan Referred To [facility]PIRATORY MOBILE Diagnoses Pulmonary fibrosis (HCC) Procedures LUNG DIFFUSION CAPACITY (DLCO) DIFFUSING CAPACITY Erin Lowe APRN.CNP [address] [place] [address] [place] [address] Referral ID Status Reason Start Date Expiration Date Visits Requested Visits Authorized [id number] Pending Review Auto-Generat ed Referral 12/05/2021 01/04/2023 1 1 * Outpatient Procedure (Routine) - Pending Review Specialty Diagnoses / Procedures Referred By Malick corrigan Referred To [facility] RESPIRATORY MOBILE Diagnoses Pulmonary fibrosis (HCC) Procedures SPIROMETRY WITH DILATOR IF OBSTRUCTED BRNCDILAT RSPSE SPMTRY PRE&POST-BRNCDILAT ADMN Erin Lowe APRN.CNP [address] [place] [id number] [place] [address] [address] [place] [address] Referral ID Status Reason Start Date Expiration Date Visits Requested Visits Authorized [id number] Pending Review Auto-Generat ed Referral 12/05/2021 01/04/2023 1 1 [facility] for referral (narrative)* Diagnostic Procedure Only (Routine) - Closed Specialty Diagnoses / Procedures [facility] To Contact XR IMAGING Diagnoses ILD (interstitial lung disease) ([facility]) Rash Dysphagia, unspecified type Procedures XR ESOPHAGRAM RADIOLOGIC EXAM ESOPHAGUS SINGLE CONTRAST STUDY Natalia Gaffney MD [address] [place] [address] Xr Imaging Referral ID Status Reason Start Date Expiration Date V isits Requested Visits Authorized [id number] Closed Auto-Generate d Referral 01/17/2022 02/16/2023 1 1 [facility] for referral (narrative)* Outpatient Procedure (Routine) - Pending Review Specialty Diagnoses / Procedures [facility] To [facility] Diagnoses IPF (idiopathic pulmonary fibrosis) ([facility]) Procedures SIX MINUTE WALK CARDIOPULMONARY EXERCISE STRESS Nancy Sales MD [address] [place] [address] [place] [address] Referral ID Status Reason Start Date Expiration Date Visits Requested Visits Authorized [id number] Pending Review Auto-Generat ed Referral 09/21/2022 04/20/2023 1 1 * Outpatient Procedure (Routine) - Pending Review Specialty Diagnoses / Procedures [facility] Diagnoses IPF (idiopathic pulmonary fibrosis) ([facility]) Procedures SPIROMETRY WITH DILATOR IF OBSTRUCTED BRNCDILAT RSPSE SPMTRY PRE&POST-BRNCDILAT ADMN Nancy Sales MD [address] [place] [address] [place] [address] Referral ID Status Reason Start Date Expiration Date Visits Requested Visits Authorized [id number] Pending Review Auto-Generat ed Referral 09/21/2022 04/20/2023 1 1 * Outpatient Procedure (Routine) - Pending Review Specialty Diagnoses / Procedures Referred By [facility] Referred To Contact [facility] Diagnoses IPF (idiopathic pulmonary fibrosis) (HCC) Procedures LUNG DIFFUSION CAPACITY (DLCO) DIFFUSING CAPACITY Nancy Sales MD [address] [place] [address] Res[facility] [place] [address] [facility] [address] Referral ID Status Reason Start Date Expiration Date Visits Requested Visits Authorized [id number] Pending Review Auto-Generat ed Referral 09/21/2022 04/20/2023 1 1 [facility] for referral (narrative)* Diagnostic Procedure Only (Routine) - Closed Specialty Diagnoses / Procedures Referred By [facility] Referred To Contact XR IMAGING Diagnoses Fall, initial encounter Procedures XR THORACIC GENERAL 3V AP/LAT/SWIMMERS RADEX SPINE THORACIC 3 VIEWS Natalia Gaffney MD [address] [facility] [place] [address] Xr Imaging Referral ID Status Reason Start Date Expiration Date V isits Requested Visits Authorized [id number] Closed Auto-Generate d Referral 05/14/2022 06/13/2023 1 1 * Diagnostic Procedure Only (Routine) - Closed Specialty Diagnoses / Procedures Referred By [facility] Referred To Contact XR IMAGING Diagnoses Fall, initial encounter Procedures XR LUMBAR GENERAL 3V AP/LAT/L5-S1 RADEX SPINE LUMBOSACRAL 2/3 VIEWS Natalia Gaffney MD [address] [facility] [place] [place] [address] Xr Imaging Referral ID Status Reason Start Date Expiration Date V isits Requested Visits Authorized [id number] Closed Auto-Generate d Referral 05/14/2022 06/13/2023 1 1 [facility] for referral (narrative)* Diagnostic Procedure Only (Routine) - Closed Specialty Diagnoses / Procedures Referred By [facility] Referred To Contact XR IMAGING Diagnoses Fall, initial encounter Procedures XR THORACIC GENERAL 3V AP/LAT/SWIMMERS RADEX SPINE THORACIC 3 VIEWS Natalia Gaffney MD [address] [place] [address] Xr Imaging Referral ID Status Reason Start Date Expiration Date V isits Requested Visits Authorized [id number] Closed Auto-Generate d Referral 05/14/2022 06/13/2023 1 1 * Diagnostic Procedure Only (Routine) - Closed Specialty Diagnoses / Procedures Referred By Contac t Referred To Contact XR IMAGING Diagnoses Fall, initial encounter Procedures XR LUMBAR GENERAL 3V AP/LAT/L5-S1 RADEX SPINE LUMBOSACRAL 2/3 VIEWS Natalia Gaffney MD [address] [place] [id number] Xr Imaging Referral ID Status Reason Start Date Expiration Date V isits Requested Visits Authorized [id number] Closed Auto-Generate d Referral 05/14/2022 06/13/2023 1 1 [facility] for referral (narrative)* Diagnostic Procedure Only (Routine) - Authorized Specialty Diagnoses / Procedures Referred By [facility] Referred To Contact US IMAGING Diagnoses Mass of left lower extremity Procedures US EXTREMITY MASS/FLUID COLLECTION Neeta Powell APRN.TIRE SPOTTER [address] [place] [address] Us Imaging Referral ID Status Reason Start Date Expiration Date Visits Requested Visits Authorized [id number] Authorized Auto-Generat ed Referral 10/14/2022 11/13/2023 1 1 [facility] for referral (narrative)* Diagnostic Procedure Only (Routine) - Authorized Specialty Diagnoses / Procedures Referred By Contac t Referred To Contact US IMAGING Diagnoses Elevated alkaline phosphatase level Elevated serum GGT level Procedures US ABD RIGHT UPPER QUADRANT US ABDOMINAL REAL TIME W/IMAGE LIMITED Neeta Bowman APRN.CNP [address] [place] [address] Us Imaging Referral ID Status Reason Start Date Expiration Date Visits Requested Visits Authorized [id number] Authorized Auto-Generat ed Referral 02/04/2023 03/05/2024 1 1 [facility] for visit Narrative* Diagnostic Procedure Only (Routine) - Closed Specialty Diagnoses / Procedures Referred By Contac t Referred To Contact XR IMAGING Diagnoses ILD (interstitial lung disease) (HCC) Rash Dysphagia, unspecified type Procedures XR ESOPHAGRAM RADIOLOGIC EXAM ESOPHAGUS SINGLE CONTRAST STUDY Natalia Gaffney MD [address] [place] [address] Xr Imaging Referral ID Status Reason Start Date Expiration Date V isits Requested Visits Authorized [id number] Closed Auto-Generate d Referral 01/17/2022 02/16/[address] [facility] Summary Purpose Family History No Family History Records FoundNo Family History Records FoundNo Family History Records FoundNo Family History Records FoundNo Family History Records FoundNo Family History Records FoundNo Family History Records Found Advance Directives No Advanced Directives Records FoundDocuments on File Type Date Recorded Patient Medical Lab Assistant Expl anation Advance Directive(s) 05/18/2020 9:18 AM Advance Directive(s) 04/28/2020 7:33 AM Advance Directive(s) 11/17/2019 1:52 PM Advance Directive(s) 12/05/2016 11:06 AM Documents on File Type Date Recorded Patient Medical Lab Assistant Expl anation Advance Directive(s) 05/18/2020 9:18 AM Advance Directive(s) 04/28/2020 7:33 AM Advance Directive(s) 11/17/2019 1:52 PM Advance Directive(s) 12/05/2016 11:06 AM Documents on File Type Date Recorded Patient Medical Lab Assistant Expl anation Advance Directive(s) 11/17/2019 1:52 PM Advance Directive(s) 12/05/2016 11:06 AM Documents on File Type Date Recorded Patient Medical Lab Assistant Expl anation Advance Directive(s) 11/17/2019 1:52 PM Advance Directive(s) 12/05/2016 11:06 AM Reason for Referral Specialty Diagnoses / Procedures Referred By Cont[facility] t Referred To Contact CT IMAGING Diagnoses Shortness of breath Restrictive lung disease Abnormal PFT Procedures CT CHEST WO IVCON DIAGNOSTIC COMPUTED TOMOGRAPHY THORAX W/O CNTRST Macey Lee MD [address] [place] [address] Ct Imaging Referral ID Status Reason Start Date Expiration Date V isits Requested Visits Authorized [id number] Closed Auto-Generate d Referral 11/22/2021 12/22/2022 1 1 Specialty Diagnoses / Procedures Referred By Contac t Referred To Contact Diagnoses Interstitial lung disease (HCC) Honeycomb lung IPF (idiopathic pulmonary fibrosis) (HCC) Nancy Sales MD [address] [place] [address] Referral ID Status Reason Start Date Expiration Date V isits Requested Visits Authorized [id number] Pending Review 1 1 Specialty Diagnoses / Procedures Referred By [facility] t Referred To Contact [facility] Diagnoses Interstitial lung disease (HCC) Honeycomb lung IPF (idiopathic pulmonary fibrosis) (HCC) Procedures SIX MINUTE WALK CARDIOPULMONARY EXERCISE STRESS Nancy Sales MD [address] [place] [address] Respiratory [place] [address] [place] [address] Referral ID Status Reason Start Date Expiration Date Visits Requested Visits Authorized [id number] Authorized Auto-Generat ed Referral 12/17/2021 01/16/2023 1 1 Specialty Diagnoses / Procedures Referred By Contac t Referred To Contact Rheumatology Diagnoses ILD (interstitial lung disease) (HCC) Procedures CONSULT TO RHEUM/IMMUN DISEASE OFFICE/OUTPATIENT [facility] 60-74 MINUTES Nancy Sales MD [address] [place] [address] Referral ID Status Reason Start Date Expiration Date Visits Requested Visits Authorized [id number] Authorized PCP Requested Referral 01/03/2022 01/03/2023 1 1 Specialty Diagnoses / Procedures Referred By Contac t Referred To Contact CT IMAGING Diagnoses ILD (interstitial lung disease) (HCC) Rash Dysphagia, unspecified type Procedures CT ABD/PEL W IVCON CT ABD & PELVIS W/CONTRAST Natalia Gaffney MD [address] [facility] [place] [address] Ct Imaging Referral ID Status Reason Start Date Expiration Date Visits Requested Visits Authorized [id number] Pending Review Auto-Generat ed Referral 03/05/2022 04/04/2023 1 1 Referral ID Status Reason Start Date Expiration Date V isits Requested Visits Authorized [id number] Closed Auto-Generate d Referral 03/05/2022 04/04/2023 1 1 Specialty Diagnoses / Procedures Referred By Contac t Referred To Contact Diagnoses Elevated alkaline phosphatase level Procedures CONSULT TO HEPATOLOGY OFFICE/OUTPATIENT [facility] 60-74 MINUTES Natalia Gaffney MD [address] [facility] [place] [address] Referral ID Status Reason Start Date Expiration Date Visits Requested Visits Authorized [id number] Authorized PCP Requested Referral 03/08/2022 03/08/2023 1 1 Specialty Diagnoses / Procedures Referred By Contac t Referred To Contact CT IMAGING Diagnoses IPF (idiopathic pulmonary fibrosis) (HCC) Interstitial pulmonary disease (HCC) Procedures CT CHEST WO IVCON DIAGNOSTIC COMPUTED TOMOGRAPHY THORAX W/O CNTRST Nancy Sales MD [address] [place] [address] Ct Imaging Referral ID Status Reason Start Date Expiration Date Visits Requested Visits Authorized [id number] Pending Review Auto-Generat ed Referral 11/24/2022 09/25/2023 1 1 Specialty Diagnoses / Procedures Referred By [facility] t Referred To Contact [facility] Diagnoses IPF (idiopathic pulmonary fibrosis) (HCC) Procedures SIX MINUTE WALK CARDIOPULMONARY EXERCISE STRESS Nancy Sales MD [address] [place] [address] Respiratory [place] [address] [place] [address] Referral ID Status Reason Start Date Expiration Date Visits Requested Visits Authorized [id number] Pending Review Auto-Generat ed Referral 11/24/2022 09/25/2023 1 1 Specialty Diagnoses / Procedures Referred By Contac t Referred To Contact [facility] Diagnoses IPF (idiopathic pulmonary fibrosis) (HCC) Procedures SPIROMETRY WITH DILATOR IF OBSTRUCTED BRNCDILAT RSPSE SPMTRY PRE&POST-BRNCDILAT ADMN Nancy Sales MD [address] [place] [address] Respiratory [place] [address] [place] [address] Referral ID Status Reason Start Date Expiration Date Visits Requested Visits Authorized [id number] Pending Review Auto-Generat ed Referral 11/24/2022 09/25/2023 1 1 Specialty Diagnoses / Procedures Referred By Contac t Referred To Contact [facility] Diagnoses IPF (idiopathic pulmonary fibrosis) (HCC) Procedures LUNG DIFFUSION CAPACITY (DLCO) DIFFUSING CAPACITY Nancy Sales MD [address] [place] [address] [place] [address] Referral ID Status Reason Start Date Expiration Date Visits Requested Visits Authorized [id number] Pending Review Auto-Generat ed Referral 11/24/2022 09/25/2023 1 1 Specialty Diagnoses / Procedures Referred By Contac t Referred To Contact Pulmonary and Critical Care Medicine Diagnoses Pulmonary fibrosis (HCC) Procedures CONSULT TO PULM/CRITICAL CARE OFFICE/OUTPATIENT [facility] 60-74 MINUTES Macey Lee MD [address] [place] [address] Referral ID Status Reason Start Date Expiration Date Visits Requested Visits Authorized [id number] Pending Review PCP Requested Referral 11/22/2022 11/22/2023 1 1 Specialty Diagnoses / Procedures Referred By Contac t Referred To Contact Pulmonary and Critical Care Medicine Diagnoses Interstitial lung disease (HCC) Honeycomb lung Procedures CONSULT TO PULM/CRITICAL CARE OFFICE/OUTPATIENT [facility] 60-74 MINUTES Macey Lee MD [address] [place] [address] Referral ID Status Reason Start Date Expiration Date V isits Requested Visits Authorized [id number] Closed PCP Requested Referral 12/04/2021 12/04/2022 1 1 Specialty Diagnoses / Procedures Referred By Contac t Referred To Contact CT IMAGING Diagnoses Interstitial pulmonary disease (HCC) Procedures CT CHEST WO IVCON DIAGNOSTIC COMPUTED TOMOGRAPHY THORAX W/O CNTRST Nancy Sales MD [address] [place] [address] Ct Imaging Referral ID Status Reason Start Date Expiration Date Visits Requested Visits Authorized [id number] Authorized Auto-Generat ed Referral 01/24/2023 02/23/2024 1 1 Specialty Diagnoses / Procedures Referred By Contac t Referred To Contact CT IMAGING Diagnoses Gross hematuria Procedures CT UROGRAM WO/W IVCON CT ABD & PELVIS W/O CONTRST 1+ BODY Robert Monsivais PA-C [address] [place] [address] Ct Imaging [place] [address] Referral ID Status Reason Start Date Expiration Date Visits Requested Visits Authorized [id number] Authorized Auto-Generat ed Referral 04/29/2023 05/28/2024 1 1 Specialty Diagnoses / Procedures Referred By Contac t Referred To Contact Gastroenterology Diagnoses Elevated alkaline phosphatase level Elevated serum GGT level Procedures CONSULT TO GASTROENTEROLOGY OFFICE/OUTPATIENT NEW [facility]IGH MDM 60-74 MINUTES Merced Mckeon PA-C [address] [place] [address] Referral ID Status Reason Start Date Expiration Date Visits Requested Visits Authorized [id number] Pending Review PCP Requested Referral 05/19/2024 1 1 Health Concerns Infection Onset Date Last Indicated Resolved Time COVID-19 Confirmed 05/27/2022 05/27/2022 Infection Onset Date Last Indicated Resolved Time COVID-19 Confirmed 05/27/2022 05/27/2022 8:51 PM EDT Problem Noted Date High Risk Chronic Disease Home Monitorin g Problem 12/24/2022 Problem Noted Date High Risk Chronic Disease Home Monitorin g Problem 12/24/2022 Problem Noted Date High Risk Chronic Disease Home Monitorin g Problem 12/24/2022 Problem Noted Date High Risk Chronic Disease Home Monitorin g Problem 12/24/2022 Problem Noted Date High Risk Chronic Disease Home Monitorin g Problem 12/24/2022 Problem Noted Date High Risk Chronic Disease Home Monitorin g Problem 12/24/2022 Problem Noted Date High Risk Chronic Disease Home Monitorin g Problem 12/24/2022 Problem Noted Date High Risk Chronic Disease Home Monitorin g Problem 12/24/2022 Problem Noted Date Diagnosed Date High Risk Chronic Disease Home Monitoring Proble m 12/24/2022 Problem Noted Date Diagnosed Date High Risk Chronic Disease Home Monitoring Proble 12/24/2022 Problem Noted Date Diagnosed Date High Risk Chronic Disease Home Monitoring Proble 12/24/2022 Problem Noted Date Diagnosed Date High Risk Chronic Disease Home Monitoring Proble m 12/24/2022 Problem Noted Date Diagnosed Date High Risk Chronic Disease Home Monitoring Proble 12/24/2022 Problem Noted Date Diagnosed Date High Risk Chronic Disease Home Monitoring Proble 12/24/2022 Problem Noted Date Diagnosed Date High Risk Chronic Disease Home Monitoring Proble 12/24/2022 Problem Noted Date Diagnosed Date High Risk Chronic Disease Home Monitoring Proble 12/24/2022 Problem Noted Date Diagnosed Date High Risk Chronic Disease Home Monitoring Proble 12/24/2022 Problem Noted Date Diagnosed Date High Risk Chronic Disease Home Monitoring Proble 12/24/2022 Problem Noted Date Diagnosed Date High Risk Chronic Disease Home Monitoring Proble 12/24/2022 Additional Source Comments (unrecognized sect ion and content) No Status Records FoundNo Status Records FoundNo Status Records FoundNo Status Records FoundNo Status Records FoundNo Status Records FoundNo Status Records Found INFORMATION SOURCE (unrecogn ized section and content) DATE CREATED AUTHOR AUTHOR'S ORGANIZ ATION 07/21/2020 [facility] DATE CREATED AUTHOR AUTHOR'S ORGANIZ ATION 10/10/2020 Ward Sauceda [facility] DATE CREATED AUTHOR AUTHOR'S ORGANIZ ATION 04/15/2021 [facility] DATE CREATED AUTHOR AUTHOR'S ORGANIZ ATION 02/28/2022 [facility] DATE CREATED AUTHOR AUTHOR'S ORGANIZ ATION 12/16/2022 [facility] DATE CREATED AUTHOR AUTHOR'S ORGANIZ ATION 08/16/2023 [facility] Source Comments (unrecognize d section and content) In the event this informatio n is protected by the [facility] Confidentiality of Alcohol and Drug Abuse Patient Records regulations: The Federal rules restrict any use of the information to criminally investigate or prosecute any alcohol or drug abuse patient.[facility] the event this information is protected by the Federal Confidentiality of Alcohol and Drug Abuse Patient Records regulations: The Federal rules restrict any use of the information to criminally investigate or prosecute any alcohol or drug abuse patient.[facility] the event this information is protected by the Federal Confidentiality of Alcohol and Drug Abuse Patient Records regulations: The Federal rules restrict any use of the information to criminally investigate or prosecute any alcohol or drug abuse patient.[facility] the event this information is protected by the Federal Confidentiality of Alcohol and Drug Abuse Patient Records regulations: The Federal rules restrict any use of the information to criminally investigate or prosecute any alcohol or drug abuse patient.[facility] the event this information is protected by the Federal Confidentiality of Alcohol and Drug Abuse Patient Records regulations: The Federal rules restrict any use of the information to criminally investigate or prosecute any alcohol or drug abuse patient.[facility] the event this information is protected by the Federal Confidentiality of Alcohol and Drug Abuse Patient Records regulations: The Federal rules restrict any use of the information to criminally investigate or prosecute any alcohol or drug abuse patient.[facility] the event this information is protected by the Federal Confidentiality of Alcohol and Drug Abuse Patient Records regulations: The Federal rules restrict any use of the information to criminally investigate or prosecute any alcohol or drug abuse patient.[facility] the event this information is protected by the Federal Confidentiality of Alcohol and Drug Abuse Patient Records regulations: The Federal rules restrict any use of the information to criminally investigate or prosecute any alcohol or drug abuse patient.[facility] the event this information is protected by the Federal Confidentiality of Alcohol and Drug Abuse Patient Records regulations: The Federal rules restrict any use of the information to criminally investigate or prosecute any alcohol or drug abuse patient.[facility] the event this information is protected by the Federal Confidentiality of Alcohol and Drug Abuse Patient Records regulations: The Federal rules restrict any use of the information to criminally investigate or prosecute any alcohol or drug abuse patient.[facility] the event this information is protected by the Federal Confidentiality of Alcohol and Drug Abuse Patient Records regulations: The Federal rules restrict any use of the information to criminally investigate or prosecute any alcohol or drug abuse patient.[facility] the event this information is protected by the Federal Confidentiality of Alcohol and Drug Abuse Patient Records regulations: The Federal rules restrict any use of the information to criminally investigate or prosecute any alcohol or drug abuse patient.[facility] the event this information is protected by the Federal Confidentiality of Alcohol and Drug Abuse Patient Records regulations: The Federal rules restrict any use of the information to criminally investigate or prosecute any alcohol or drug abuse patient.[facility] the event this information is protected by the Federal Confidentiality of Alcohol and Drug Abuse Patient Records regulations: The Federal rules restrict any use of the information to criminally investigate or prosecute any alcohol or drug abuse patient.[facility] the event this information is protected by the Federal Confidentiality of Alcohol and Drug Abuse Patient Records regulations: The Federal rules restrict any use of the information to criminally investigate or prosecute any alcohol or drug abuse patient.[facility] the event this information is protected by the Federal Confidentiality of Alcohol and Drug Abuse Patient Records regulations: The Federal rules restrict any use of the information to criminally investigate or prosecute any alcohol or drug abuse patient.[facility] HospitalIn the event this information is protected by the Federal Confidentiality of Alcohol and Drug Abuse Patient Records regulations: The Federal rules restrict any use of the information to criminally investigate or prosecute any alcohol or drug abuse patient.[facility] HospitalIn the event this information is protected by the Federal Confidentiality of Alcohol and Drug Abuse Patient Records regulations: The Federal rules restrict any use of the information to criminally investigate or prosecute any alcohol or drug abuse patient.[facility] HospitalIn the event this information is protected by the Federal Confidentiality of Alcohol and Drug Abuse Patient Records regulations: The Federal rules restrict any use of the information to criminally investigate or prosecute any alcohol or drug abuse patient.[facility] HospitalIn the event this information is protected by the Federal Confidentiality of Alcohol and Drug Abuse Patient Records regulations: The Federal rules restrict any use of the information to criminally investigate or prosecute any alcohol or drug abuse patient.[facility] HospitalIn the event this information is protected by the Federal Confidentiality of Alcohol and Drug Abuse Patient Records regulations: The Federal rules restrict any use of the information to criminally investigate or prosecute any alcohol or drug abuse patient.[facility] HospitalIn the event this information is protected by the Federal Confidentiality of Alcohol and Drug Abuse Patient Records regulations: The Federal rules restrict any use of the information to criminally investigate or prosecute any alcohol or drug abuse patient.[facility] HospitalIn the event this information is protected by the Federal Confidentiality of Alcohol and Drug Abuse Patient Records regulations: The Federal rules restrict any use of the information to criminally investigate or prosecute any alcohol or drug abuse patient.[facility] HospitalIn the event this information is protected by the Federal Confidentiality of Alcohol and Drug Abuse Patient Records regulations: The Federal rules restrict any use of the information to criminally investigate or prosecute any alcohol or drug abuse patient.[facility] HospitalIn the event this information is protected by the Federal Confidentiality of Alcohol and Drug Abuse Patient Records regulations: The Federal rules restrict any use of the information to criminally investigate or prosecute any alcohol or drug abuse patient.[facility] HospitalIn the event this information is protected by the Federal Confidentiality of Alcohol and Drug Abuse Patient Records regulations: The Federal rules restrict any use of the information to criminally investigate or prosecute any alcohol or drug abuse patient.[facility] HospitalIn the event this information is protected by the Federal Confidentiality of Alcohol and Drug Abuse Patient Records regulations: The Federal rules restrict any use of the information to criminally investigate or prosecute any alcohol or drug abuse patient.[facility] HospitalIn the event this information is protected by the Federal Confidentiality of Alcohol and Drug Abuse Patient Records regulations: The Federal rules restrict any use of the information to criminally investigate or prosecute any alcohol or drug abuse patient.[facility] HospitalIn the event this information is protected by the Federal Confidentiality of Alcohol and Drug Abuse Patient Records regulations: The Federal rules restrict any use of the information to criminally investigate or prosecute any alcohol or drug abuse patient.[facility] HospitalIn the event this information is protected by the Federal Confidentiality of Alcohol and Drug Abuse Patient Records regulations: The Federal rules restrict any use of the information to criminally investigate or prosecute any alcohol or drug abuse patient.[facility] HospitalIn the event this information is protected by the Federal Confidentiality of Alcohol and Drug Abuse Patient Records regulations: The Federal rules restrict any use of the information to criminally investigate or prosecute any alcohol or drug abuse patient.[facility] HospitalIn the event this information is protected by the Federal Confidentiality of Alcohol and Drug Abuse Patient Records regulations: The Federal rules restrict any use of the information to criminally investigate or prosecute any alcohol or drug abuse patient.[facility] HospitalIn the event this information is protected by the Federal Confidentiality of Alcohol and Drug Abuse Patient Records regulations: The Federal rules restrict any use of the information to criminally investigate or prosecute any alcohol or drug abuse patient.[facility] HospitalIn the event this information is protected by the Federal Confidentiality of Alcohol and Drug Abuse Patient Records regulations: The Federal rules restrict any use of the information to criminally investigate or prosecute any alcohol or drug abuse patient.[facility] HospitalIn the event this information is protected by the Federal Confidentiality of Alcohol and Drug Abuse Patient Records regulations: The Federal rules restrict any use of the information to criminally investigate or prosecute any alcohol or drug abuse patient.[facility] HospitalIn the event this information is protected by the Federal Confidentiality of Alcohol and Drug Abuse Patient Records regulations: The Federal rules restrict any use of the information to criminally investigate or prosecute any alcohol or drug abuse patient.[facility] HospitalIn the event this information is protected by the Federal Confidentiality of Alcohol and Drug Abuse Patient Records regulations: The Federal rules restrict any use of the information to criminally investigate or prosecute any alcohol or drug abuse patient.[facility] HospitalIn the event this information is protected by the Federal Confidentiality of Alcohol and Drug Abuse Patient Records regulations: The Federal rules restrict any use of the information to criminally investigate or prosecute any alcohol or drug abuse patient.[facility] HospitalIn the event this information is protected by the Federal Confidentiality of Alcohol and Drug Abuse Patient Records regulations: The Federal rules restrict any use of the information to criminally investigate or prosecute any alcohol or drug abuse patient.[facility] HospitalIn the event this information is protected by the Federal Confidentiality of Alcohol and Drug Abuse Patient Records regulations: The Federal rules restrict any use of the information to criminally investigate or prosecute any alcohol or drug abuse patient.[facility] HospitalIn the event this information is protected by the Federal Confidentiality of Alcohol and Drug Abuse Patient Records regulations: The Federal rules restrict any use of the information to criminally investigate or prosecute any alcohol or drug abuse patient.[facility] HospitalIn the event this information is protected by the Federal Confidentiality of Alcohol and Drug Abuse Patient Records regulations: The Federal rules restrict any use of the information to criminally investigate or prosecute any alcohol or drug abuse patient.[facility] HospitalIn the event this information is protected by the Federal Confidentiality of Alcohol and Drug Abuse Patient Records regulations: The Federal rules restrict any use of the information to criminally investigate or prosecute any alcohol or drug abuse patient.[facility] HospitalIn the event this information is protected by the Federal Confidentiality of Alcohol and Drug Abuse Patient Records regulations: The Federal rules restrict any use of the information to criminally investigate or prosecute any alcohol or drug abuse patient.[facility] HospitalIn the event this information is protected by the Federal Confidentiality of Alcohol and Drug Abuse Patient Records regulations: The Federal rules restrict any use of the information to criminally investigate or prosecute any alcohol or drug abuse patient.[facility] HospitalIn the event this information is protected by the Federal Confidentiality of Alcohol and Drug Abuse Patient Records regulations: The Federal rules restrict any use of the information to criminally investigate or prosecute any alcohol or drug abuse patient.[facility] HospitalIn the event this information is protected by the Federal Confidentiality of Alcohol and Drug Abuse Patient Records regulations: The Federal rules restrict any use of the information to criminally investigate or prosecute any alcohol or drug abuse patient.[facility] HospitalIn the event this information is protected by the Federal Confidentiality of Alcohol and Drug Abuse Patient Records regulations: The Federal rules restrict any use of the information to criminally investigate or prosecute any alcohol or drug abuse patient.[facility] HospitalIn the event this information is protected by the Federal Confidentiality of Alcohol and Drug Abuse Patient Records regulations: The Federal rules restrict any use of the information to criminally investigate or prosecute any alcohol or drug abuse patient.[facility] HospitalIn the event this information is protected by the Federal Confidentiality of Alcohol and Drug Abuse Patient Records regulations: The Federal rules restrict any use of the information to criminally investigate or prosecute any alcohol or drug abuse patient.[facility] HospitalIn the event this information is protected by the Federal Confidentiality of Alcohol and Drug Abuse Patient Records regulations: The Federal rules restrict any use of the information to criminally investigate or prosecute any alcohol or drug abuse patient.[facility] HospitalIn the event this information is protected by the Federal Confidentiality of Alcohol and Drug Abuse Patient Records regulations: The Federal rules restrict any use of the information to criminally investigate or prosecute any alcohol or drug abuse patient.[facility] HospitalIn the event this information is protected by the Federal Confidentiality of Alcohol and Drug Abuse Patient Records regulations: The Federal rules restrict any use of the information to criminally investigate or prosecute any alcohol or drug abuse patient.[facility] HospitalIn the event this information is protected by the Federal Confidentiality of Alcohol and Drug Abuse Patient Records regulations: The Federal rules restrict any use of the information to criminally investigate or prosecute any alcohol or drug abuse patient.[facility]In the event this information is protected by the Federal Confidentiality of Alcohol and Drug Abuse Patient Records regulations: The Federal rules restrict any use of the information to criminally investigate or prosecute any alcohol or drug abuse patient.[facility] HospitalIn the event this information is protected by the Federal Confidentiality of Alcohol and Drug Abuse Patient Records regulations: The Federal rules restrict any use of the information to criminally investigate or prosecute any alcohol or drug abuse patient.[facility] HospitalIn the event this information is protected by the Federal Confidentiality of Alcohol and Drug Abuse Patient Records regulations: The Federal rules restrict any use of the information to criminally investigate or prosecute any alcohol or drug abuse patient.[facility] HospitalIn the event this information is protected by the Federal Confidentiality of Alcohol and Drug Abuse Patient Records regulations: The Federal rules restrict any use of the information to criminally investigate or prosecute any alcohol or drug abuse patient.[facility] HospitalIn the event this information is protected by the Federal Confidentiality of Alcohol and Drug Abuse Patient Records regulations: The Federal rules restrict any use of the information to criminally investigate or prosecute any alcohol or drug abuse patient.[facility] HospitalIn the event this information is protected by the Federal Confidentiality of Alcohol and Drug Abuse Patient Records regulations: The Federal rules restrict any use of the information to criminally investigate or prosecute any alcohol or drug abuse patient.[facility] HospitalIn the event this information is protected by the Federal Confidentiality of Alcohol and Drug Abuse Patient Records regulations: The Federal rules restrict any use of the information to criminally investigate or prosecute any alcohol or drug abuse patient.[facility] HospitalIn the event this information is protected by the Federal Confidentiality of Alcohol and Drug Abuse Patient Records regulations: The Federal rules restrict any use of the information to criminally investigate or prosecute any alcohol or drug abuse patient.[facility] HospitalIn the event this information is protected by the Federal Confidentiality of Alcohol and Drug Abuse Patient Records regulations: The Federal rules restrict any use of the information to criminally investigate or prosecute any alcohol or drug abuse patient.[facility] HospitalIn the event this information is protected by the Federal Confidentiality of Alcohol and Drug Abuse Patient Records regulations: The Federal rules restrict any use of the information to criminally investigate or prosecute any alcohol or drug abuse patient.[facility] HospitalIn the event this information is protected by the Federal Confidentiality of Alcohol and Drug Abuse Patient Records regulations: The Federal rules restrict any use of the information to criminally investigate or prosecute any alcohol or drug abuse patient.[facility] HospitalIn the event this information is protected by the Federal Confidentiality of Alcohol and Drug Abuse Patient Records regulations: The Federal rules restrict any use of the information to criminally investigate or prosecute any alcohol or drug abuse patient.[facility] HospitalIn the event this information is protected by the Federal Confidentiality of Alcohol and Drug Abuse Patient Records regulations: The Federal rules restrict any use of the information to criminally investigate or prosecute any alcohol or drug abuse patient.[facility] HospitalIn the event this information is protected by the Federal Confidentiality of Alcohol and Drug Abuse Patient Records regulations: The Federal rules restrict any use of the information to criminally investigate or prosecute any alcohol or drug abuse patient.[facility] HospitalIn the event this information is protected by the Federal Confidentiality of Alcohol and Drug Abuse Patient Records regulations: The Federal rules restrict any use of the information to criminally investigate or prosecute any alcohol or drug abuse patient.[facility] HospitalIn the event this information is protected by the Federal Confidentiality of Alcohol and Drug Abuse Patient Records regulations: The Federal rules restrict any use of the information to criminally investigate or prosecute any alcohol or drug abuse patient.[facility] HospitalIn the event this information is protected by the Federal Confidentiality of Alcohol and Drug Abuse Patient Records regulations: The Federal rules restrict any use of the information to criminally investigate or prosecute any alcohol or drug abuse patient.[facility] HospitalIn the event this information is protected by the Federal Confidentiality of Alcohol and Drug Abuse Patient Records regulations: The Federal rules restrict any use of the information to criminally investigate or prosecute any alcohol or drug abuse patient.[facility] HospitalIn the event this information is protected by the Federal Confidentiality of Alcohol and Drug Abuse Patient Records regulations: The Federal rules restrict any use of the information to criminally investigate or prosecute any alcohol or drug abuse patient.[facility] HospitalIn the event this information is protected by the Federal Confidentiality of Alcohol and Drug Abuse Patient Records regulations: The Federal rules restrict any use of the information to criminally investigate or prosecute any alcohol or drug abuse patient.[facility] HospitalIn the event this information is protected by the Federal Confidentiality of Alcohol and Drug Abuse Patient Records regulations: The Federal rules restrict any use of the information to criminally investigate or prosecute any alcohol or drug abuse patient.[facility] HospitalIn the event this information is protected by the Federal Confidentiality of Alcohol and Drug Abuse Patient Records regulations: The Federal rules restrict any use of the information to criminally investigate or prosecute any alcohol or drug abuse patient.[facility] HospitalIn the event this information is protected by the Federal Confidentiality of Alcohol and Drug Abuse Patient Records regulations: The Federal rules restrict any use of the information to criminally investigate or prosecute any alcohol or drug abuse patient.[facility] HospitalIn the event this information is protected by the Federal Confidentiality of Alcohol and Drug Abuse Patient Records regulations: The Federal rules restrict any use of the information to criminally investigate or prosecute any alcohol or drug abuse patient.[facility] HospitalIn the event this information is protected by the Federal Confidentiality of Alcohol and Drug Abuse Patient Records regulations: The Federal rules restrict any use of the information to criminally investigate or prosecute any alcohol or drug abuse patient.[facility] HospitalIn the event this information is protected by the Federal Confidentiality of Alcohol and Drug Abuse Patient Records regulations: The Federal rules restrict any use of the information to criminally investigate or prosecute any alcohol or drug abuse patient.[facility] HospitalIn the event this information is protected by the Federal Confidentiality of Alcohol and Drug Abuse Patient Records regulations: The Federal rules restrict any use of the information to criminally investigate or prosecute any alcohol or drug abuse patient.[facility] HospitalIn the event this information is protected by the Federal Confidentiality of Alcohol and Drug Abuse Patient Records regulations: The Federal rules restrict any use of the information to criminally investigate or prosecute any alcohol or drug abuse patient.[facility] HospitalIn the event this information is protected by the Federal Confidentiality of Alcohol and Drug Abuse Patient Records regulations: The Federal rules restrict any use of the information to criminally investigate or prosecute any alcohol or drug abuse patient.[facility] HospitalIn the event this information is protected by the Federal Confidentiality of Alcohol and Drug Abuse Patient Records regulations: The Federal rules restrict any use of the information to criminally investigate or prosecute any alcohol or drug abuse patient.[facility] HospitalIn the event this information is protected by the Federal Confidentiality of Alcohol and Drug Abuse Patient Records regulations: The Federal rules restrict any use of the information to criminally investigate or prosecute any alcohol or drug abuse patient.[facility] HospitalIn the event this information is protected by the Federal Confidentiality of Alcohol and Drug Abuse Patient Records regulations: The Federal rules restrict any use of the information to criminally investigate or prosecute any alcohol or drug abuse patient.[facility] HospitalIn the event this information is protected by the Federal Confidentiality of Alcohol and Drug Abuse Patient Records regulations: The Federal rules restrict any use of the information to criminally investigate or prosecute any alcohol or drug abuse patient.[facility] HospitalIn the event this information is protected by the Federal Confidentiality of Alcohol and Drug Abuse Patient Records regulations: The Federal rules restrict any use of the information to criminally investigate or prosecute any alcohol or drug abuse patient.[facility] HospitalIn the event this information is protected by the Federal Confidentiality of Alcohol and Drug Abuse Patient Records regulations: The Federal rules restrict any use of the information to criminally investigate or prosecute any alcohol or drug abuse patient.[facility] HospitalIn the event this information is protected by the Federal Confidentiality of Alcohol and Drug Abuse Patient Records regulations: The Federal rules restrict any use of the information to criminally investigate or prosecute any alcohol or drug abuse patient.[facility] HospitalIn the event this information is protected by the Federal Confidentiality of Alcohol and Drug Abuse Patient Records regulations: The Federal rules restrict any use of the information to criminally investigate or prosecute any alcohol or drug abuse patient.[facility] HospitalIn the event this information is protected by the Federal Confidentiality of Alcohol and Drug Abuse Patient Records regulations: The Federal rules restrict any use of the information to criminally investigate or prosecute any alcohol or drug abuse patient.[facility] HospitalIn the event this information is protected by the Federal Confidentiality of Alcohol and Drug Abuse Patient Records regulations: The Federal rules restrict any use of the information to criminally investigate or prosecute any alcohol or drug abuse patient.[facility] HospitalIn the event this information is protected by the Federal Confidentiality of Alcohol and Drug Abuse Patient Records regulations: The Federal rules restrict any use of the information to criminally investigate or prosecute any alcohol or drug abuse patient.[facility] HospitalIn the event this information is protected by the Federal Confidentiality of Alcohol and Drug Abuse Patient Records regulations: The Federal rules restrict any use of the information to criminally investigate or prosecute any alcohol or drug abuse patient.[facility] HospitalIn the event this information is protected by the Federal Confidentiality of Alcohol and Drug Abuse Patient Records regulations: The Federal rules restrict any use of the information to criminally investigate or prosecute any alcohol or drug abuse patient.[facility] HospitalIn the event this information is protected by the Federal Confidentiality of Alcohol and Drug Abuse Patient Records regulations: The Federal rules restrict any use of the information to criminally investigate or prosecute any alcohol or drug abuse patient.[facility] HospitalIn the event this information is protected by the Federal Confidentiality of Alcohol and Drug Abuse Patient Records regulations: The Federal rules restrict any use of the information to criminally investigate or prosecute any alcohol or drug abuse patient.[facility] HospitalIn the event this information is protected by the Federal Confidentiality of Alcohol and Drug Abuse Patient Records regulations: The Federal rules restrict any use of the information to criminally investigate or prosecute any alcohol or drug abuse patient.[facility] HospitalIn the event this information is protected by the Federal Confidentiality of Alcohol and Drug Abuse Patient Records regulations: The Federal rules restrict any use of the information to criminally investigate or prosecute any alcohol or drug abuse patient.[facility] HospitalIn the event this information is protected by the Federal Confidentiality of Alcohol and Drug Abuse Patient Records regulations: The Federal rules restrict any use of the information to criminally investigate or prosecute any alcohol or drug abuse patient.[facility] HospitalIn the event this information is protected by the Federal Confidentiality of Alcohol and Drug Abuse Patient Records regulations: The Federal rules restrict any use of the information to criminally investigate or prosecute any alcohol or drug abuse patient.[facility] HospitalIn the event this information is protected by the Federal Confidentiality of Alcohol and Drug Abuse Patient Records regulations: The Federal rules restrict any use of the information to criminally investigate or prosecute any alcohol or drug abuse patient.[facility] HospitalIn the event this information is protected by the Federal Confidentiality of Alcohol and Drug Abuse Patient Records regulations: The Federal rules restrict any use of the information to criminally investigate or prosecute any alcohol or drug abuse patient.[facility] ClinicIn the event this information is protected by the Federal Confidentiality of Alcohol and Drug Abuse Patient Records regulations: The Federal rules restrict any use of the information to criminally investigate or prosecute any alcohol or drug abuse patient.[facility] HospitalIn the event this information is protected by the Federal Confidentiality of Alcohol and Drug Abuse Patient Records regulations: The Federal rules restrict any use of the information to criminally investigate or prosecute any alcohol or drug abuse patient.[facility] HospitalIn the event this information is protected by the Federal Confidentiality of Alcohol and Drug Abuse Patient Records regulations: The Federal rules restrict any use of the information to criminally investigate or prosecute any alcohol or drug abuse patient.[facility] HospitalIn the event this information is protected by the Federal Confidentiality of Alcohol and Drug Abuse Patient Records regulations: The Federal rules restrict any use of the information to criminally investigate or prosecute any alcohol or drug abuse patient.[facility] HospitalIn the event this information is protected by the Federal Confidentiality of Alcohol and Drug Abuse Patient Records regulations: The Federal rules restrict any use of the information to criminally investigate or prosecute any alcohol or drug abuse patient.[facility] HospitalIn the event this information is protected by the Federal Confidentiality of Alcohol and Drug Abuse Patient Records regulations: The Federal rules restrict any use of the information to criminally investigate or prosecute any alcohol or drug abuse patient.[facility] HospitalIn the event this information is protected by the Federal Confidentiality of Alcohol and Drug Abuse Patient Records regulations: The Federal rules restrict any use of the information to criminally investigate or prosecute any alcohol or drug abuse patient.[facility] HospitalIn the event this information is protected by the Federal Confidentiality of Alcohol and Drug Abuse Patient Records regulations: The Federal rules restrict any use of the information to criminally investigate or prosecute any alcohol or drug abuse patient.[facility] HospitalIn the event this information is protected by the Federal Confidentiality of Alcohol and Drug Abuse Patient Records regulations: The Federal rules restrict any use of the information to criminally investigate or prosecute any alcohol or drug abuse patient.[facility] HospitalIn the event this information is protected by the Federal Confidentiality of Alcohol and Drug Abuse Patient Records regulations: The Federal rules restrict any use of the information to criminally investigate or prosecute any alcohol or drug abuse patient.[facility] HospitalIn the event this information is protected by the Federal Confidentiality of Alcohol and Drug Abuse Patient Records regulations: The Federal rules restrict any use of the information to criminally investigate or prosecute any alcohol or drug abuse patient.[facility] HospitalIn the event this information is protected by the Federal Confidentiality of Alcohol and Drug Abuse Patient Records regulations: The Federal rules restrict any use of the information to criminally investigate or prosecute any alcohol or drug abuse patient.[facility] HospitalIn the event this information is protected by the Federal Confidentiality of Alcohol and Drug Abuse Patient Records regulations: The Federal rules restrict any use of the information to criminally investigate or prosecute any alcohol or drug abuse patient.[facility] HospitalIn the event this information is protected by the Federal Confidentiality of Alcohol and Drug Abuse Patient Records regulations: The Federal rules restrict any use of the information to criminally investigate or prosecute any alcohol or drug abuse patient.[facility] HospitalIn the event this information is protected by the Federal Confidentiality of Alcohol and Drug Abuse Patient Records regulations: The Federal rules restrict any use of the information to criminally investigate or prosecute any alcohol or drug abuse patient.[facility] HospitalIn the event this information is protected by the Federal Confidentiality of Alcohol and Drug Abuse Patient Records regulations: The Federal rules restrict any use of the information to criminally investigate or prosecute any alcohol or drug abuse patient.[facility] HospitalIn the event this information is protected by the Federal Confidentiality of Alcohol and Drug Abuse Patient Records regulations: The Federal rules restrict any use of the information to criminally investigate or prosecute any alcohol or drug abuse patient.[facility] HospitalIn the event this information is protected by the Federal Confidentiality of Alcohol and Drug Abuse Patient Records regulations: The Federal rules restrict any use of the information to criminally investigate or prosecute any alcohol or drug abuse patient.[facility] HospitalIn the event this information is protected by the Federal Confidentiality of Alcohol and Drug Abuse Patient Records regulations: The Federal rules restrict any use of the information to criminally investigate or prosecute any alcohol or drug abuse patient.[facility] HospitalIn the event this information is protected by the Federal Confidentiality of Alcohol and Drug Abuse Patient Records regulations: The Federal rules restrict any use of the information to criminally investigate or prosecute any alcohol or drug abuse patient.[facility] HospitalIn the event this information is protected by the Federal Confidentiality of Alcohol and Drug Abuse Patient Records regulations: The Federal rules restrict any use of the information to criminally investigate or prosecute any alcohol or drug abuse patient.[facility] HospitalIn the event this information is protected by the Federal Confidentiality of Alcohol and Drug Abuse Patient Records regulations: The Federal rules restrict any use of the information to criminally investigate or prosecute any alcohol or drug abuse patient.[facility] HospitalIn the event this information is protected by the Federal Confidentiality of Alcohol and Drug Abuse Patient Records regulations: The Federal rules restrict any use of the information to criminally investigate or prosecute any alcohol or drug abuse patient.[facility] HospitalIn the event this information is protected by the Federal Confidentiality of Alcohol and Drug Abuse Patient Records regulations: The Federal rules restrict any use of the information to criminally investigate or prosecute any alcohol or drug abuse patient.[facility] HospitalIn the event this information is protected by the Federal Confidentiality of Alcohol and Drug Abuse Patient Records regulations: The Federal rules restrict any use of the information to criminally investigate or prosecute any alcohol or drug abuse patient.[facility] HospitalIn the event this information is protected by the Federal Confidentiality of Alcohol and Drug Abuse Patient Records regulations: The Federal rules restrict any use of the information to criminally investigate or prosecute any alcohol or drug abuse patient.[facility] HospitalIn the event this information is protected by the Federal Confidentiality of Alcohol and Drug Abuse Patient Records regulations: The Federal rules restrict any use of the information to criminally investigate or prosecute any alcohol or drug abuse patient.[facility] HospitalIn the event this information is protected by the Federal Confidentiality of Alcohol and Drug Abuse Patient Records regulations: The Federal rules restrict any use of the information to criminally investigate or prosecute any alcohol or drug abuse patient.[facility] HospitalIn the event this information is protected by the Federal Confidentiality of Alcohol and Drug Abuse Patient Records regulations: The Federal rules restrict any use of the information to criminally investigate or prosecute any alcohol or drug abuse patient.[facility] HospitalIn the event this information is protected by the Federal Confidentiality of Alcohol and Drug Abuse Patient Records regulations: The Federal rules restrict any use of the information to criminally investigate or prosecute any alcohol or drug abuse patient.[facility] HospitalIn the event this information is protected by the Federal Confidentiality of Alcohol and Drug Abuse Patient Records regulations: The Federal rules restrict any use of the information to criminally investigate or prosecute any alcohol or drug abuse patient.[facility] HospitalIn the event this information is protected by the Federal Confidentiality of Alcohol and Drug Abuse Patient Records regulations: The Federal rules restrict any use of the information to criminally investigate or prosecute any alcohol or drug abuse patient.[facility] HospitalIn the event this information is protected by the Federal Confidentiality of Alcohol and Drug Abuse Patient Records regulations: The Federal rules restrict any use of the information to criminally investigate or prosecute any alcohol or drug abuse patient.[facility] HospitalIn the event this information is protected by the Federal Confidentiality of Alcohol and Drug Abuse Patient Records regulations: The Federal rules restrict any use of the information to criminally investigate or prosecute any alcohol or drug abuse patient.[facility] HospitalIn the event this information is protected by the Federal Confidentiality of Alcohol and Drug Abuse Patient Records regulations: The Federal rules restrict any use of the information to criminally investigate or prosecute any alcohol or drug abuse patient.[facility] Reason for Visit (unrecogniz ed section and content) Specialty Diagnoses / Procedures Referred By Contac t Referred To Contact Pulmonary and Critical Care Medicine Diagnoses Interstitial lung disease (HCC) Honeycomb lung Procedures CONSULT TO PULM/CRITICAL CARE OFFICE/OUTPATIENT [facility] HIGH MDM 60-74 MINUTES Macey Lee MD [address] [place] [address] Referral ID Status Reason Start Date Expiration Date V isits Requested Visits Authorized [id number] Closed PCP Requested Referral 12/04/2021 12/04/2022 1 1 Reason Comments Medication Question Reason Onset Date Comments Insight Escalation 11/18/2021 Insight CDM Q uestionnaire triggered escalation Reason Comments Spirometry Specialty Diagnoses / Procedures Referred By Contac t Referred To Contact [facility] Diagnoses SOB (shortness of breath) Procedures LUNG VOLUMES Macey Lee MD [address] [place] [address] [address] Referral ID Status Reason Start Date Expiration Date V isits Requested Visits Authorized [id number] Closed Auto-Generate d Referral 10/29/2021 11/28/2022 1 1 Specialty Diagnoses / Procedures Referred By Contac t Referred To Contact RESPIRATORY MOBILE Diagnoses SOB (shortness of breath) Procedures LUNG DIFFUSION CAPACITY (DLCO) DIFFUSING CAPACITY Macey Lee MD [address] [place] [address] [address] Referral ID Status Reason Start Date Expiration Date V isits Requested Visits Authorized [id number] Closed Auto-Generate d Referral 10/29/2021 11/28/2022 1 1 Reason Onset Date Comments Community Monitoring Outreach 11/19/2021 CH F Telephonic CDM Outreach Reason Onset Date Comments Anticoagulation Telephone Fu 11/26/2021 Nhan e INR Result Reason Comments Radiology CT Specialty Diagnoses / Procedures Referred By Contac t Referred To Contact CT IMAGING Diagnoses Shortness of breath Restrictive lung disease Abnormal PFT Procedures CT CHEST WO IVCON DIAGNOSTIC COMPUTED TOMOGRAPHY THORAX W/O DEEPAKRST Macye Lee MD [address] [place] [address] Ct Imaging Referral ID Status Reason Start Date Expiration Date V isits Requested Visits Authorized [id number] Closed Auto-Generate d Referral 11/22/2021 12/22/2022 1 1 Reason Comments Refill Request Reason Comments Anticoagulation Telephone Fu Reason Comments Medication Authorization Reason Comments Medication Preauthorization Esbriet 267m g/ APPROVED Reason Onset Date Comments Anticoagulation 12/17/2021 INR result expec jackson Reason Comments Results Reason Onset Date Comments Refill Request 01/06/2022 Reason Onset Date Comments Refill Request 01/09/2022 Reason Comments Dizziness Reason Comments Medication Problem Reason Onset Date Comments Refill Request 02/09/2022 Reason Comments Fall (LT) eyebrow lacerat ion, (LT) lower leg Pt reported fall at home onset AM Reason Comments Suture Removal Specialty Diagnoses / Procedures Referred By Contac t Referred To Contact CT IMAGING Diagnoses ILD (interstitial lung disease) (HCC) Rash Dysphagia, unspecified type Procedures CT ABD/PEL W IVCON CT ABD & PELVIS W/CONTRAST Natalia Gaffney MD [address] [place] [address] Ct Imaging Referral ID Status Reason Start Date Expiration Date V isits Requested Visits Authorized [id number] Closed Auto-Generate d Referral 03/05/2022 04/04/2023 1 1 Reason Comments Rash Specialty Diagnoses / Procedures Referred By Contac t Referred To Contact Dermatology Diagnoses ILD (interstitial lung disease) (HCC) Rash Dysphagia, unspecified type Procedures CONSULT TO DERMATOLOGY OFFICE/OUTPATIENT [facility] 60-74 MINUTES Natalia Gaffney MD [address] [place] [address] Referral ID Status Reason Start Date Expiration Date V isits Requested Visits Authorized [id number] Closed PCP Requested Referral 01/17/2022 01/17/2023 1 1 Reason Onset Date Comments No Show 03/12/2021 INR result expec jackson Reason Onset Date Comments Refill Request 03/08/2022 Reason Onset Date Comments Anticoagulation Telephone Fu 03/11/2022 Nhan e INR Result Reason Onset Date Comments Refill Request 03/15/2022 Specialty Diagnoses / Procedures Referred By Contac t Referred To Contact [facility] Diagnoses Interstitial lung disease (HCC) Honeycomb lung IPF (idiopathic pulmonary fibrosis) (HCC) Procedures SIX MINUTE WALK CARDIOPULMONARY EXERCISE STRESS Nancy Sales MD [address] [place] [address] Res[facility] [place] [address] [place], [place] [address] [place] [address] Referral ID Status Reason Start Date Expiration Date V isits Requested Visits Authorized [id number] Closed Auto-Generate d Referral 12/17/2021 01/16/2023 1 1 Reason Comments Recheck Reason Comments Permanent Pacemaker Reason Comments Ear Problem L ear, trouble heari ng x 1 week Reason Comments Patient Question Orders Reason Comments Orders Reason Onset Date Comments Refill Request 03/26/2022 Reason Comments Appointment Cancelled Reason Onset Date Comments Anticoagulation Telephone Fu 04/01/2022 Nhan e INR Result Reason Comments Follow Up Reason Comments Patient Question Reason Comments New Patient Elevated alkaline ph osphatase level Specialty Diagnoses / Procedures Referred By Contac t Referred To Contact Diagnoses Elevated alkaline phosphatase level Procedures CONSULT TO HEPATOLOGY OFFICE/OUTPATIENT NEW HIGH MDM 60-74 MINUTES Natalia Gaffney MD [address] [place] [address] Referral ID Status Reason Start Date Expiration Date V isits Requested Visits Authorized [id number] Closed PCP Requested Referral 03/08/2022 03/08/2023 1 1 Reason Onset Date Comments Refill Request 04/19/2022 Reason Onset Date Comments Anticoagulation Telephone Fu 04/22/2022 Nhan e INR Result Reason Comments MEDICATION DISCHARGE NOTICE ESBRIET / Or rikki Reason Comments Recheck 6 month Reason Comments Radio Gen A21 Specialty Diagnoses / Procedures Referred By Emmaac t Referred To Contact XR IMAGING Diagnoses Fall, initial encounter Procedures XR THORACIC GENERAL 3V AP/LAT/SWIMMERS RADEX SPINE THORACIC 3 VIEWS Natalia Gaffney MD [address] [place] [address] Xr Imaging Referral ID Status Reason Start Date Expiration Date V isits Requested Visits Authorized [id number] Closed Auto-Generate d Referral 05/14/2022 06/13/2023 1 1 Reason Onset Date Comments Anticoagulation 05/13/2022 INR result resul t Reason Comments Cough 05/17/22 started with cough. Persistent for last 10 days. Non- productive. Sunday 05/20 fatigue started and has progressed with body aches. Reason Comments Anticoagulation Telephone Fu INR Home Te st Result Reason Onset Date Comments Refill Request 06/04/2022 Reason Onset Date Comments Anticoagulation Telephone Fu 06/17/2022 Nhan e INR Result Reason Onset Date Comments Anticoagulation Telephone Fu 07/01/2022 Reason Onset Date Comments Anticoagulation Telephone Fu 07/18/2022 Nhan e INR result Reason Onset Date Comments Refill Request 08/13/2022 Reason Onset Date Comments Refill Request 08/09/2022 Reason Comments CARD Follow Up Annual AFIB Reason Comments Recheck Fibrosis questions Reason Comments Recheck Reason Comments Anticoagulation Telephone Fu Home INR re sult Reason Comments Anticoagulation Reason Onset Date Comments Anticoagulation Telephone Fu 09/12/2022 Nhan e INR result Reason Comments Patient Question Lab Orders Reason Comments Anticoagulation Home INR result Reason Comments Mass Lump on outer L leg x 3 weeks Reason Onset Date Comments Anticoagulation Telephone Fu 10/17/2022 Nhan e INR Reason Comments Radiology CT Specialty Diagnoses / Procedures Referred By Malick corrigan Referred To Contact CT IMAGING Diagnoses Examination of participant in clinical trial Procedures CT CHEST WO IVCON DIAGNOSTIC COMPUTED TOMOGRAPHY THORAX W/O CNTRST Geovanny Ray MD [address] [place] [address] Ct Imaging Referral ID Status Reason Start Date Expiration Date V isits Requested Visits Authorized [id number] Closed Auto-Generate d Referral 10/01/2022 10/31/2023 1 1 Reason Onset Date Comments Refill Request 11/02/2022 Reason Onset Date Comments Refill Request 11/19/2022 Reason Comments F/U HTN 3 Month Reason Onset Date Comments Anticoagulation Telephone Fu 11/25/2022 Nhan e INR Result Reason Comments Results Appointment Reason Comments Remote Pacemaker Follow Up Reason Onset Date Comments Anticoagulation 12/09/2022 INR Result Expec jackson Reason Onset Date Comments Anticoagulation Telephone Fu 11/21/2022 Nhan e INR excpected Reason Comments Anticoagulation Telephone Fu Home INR re sult Reason Comments Fatigue Increased fatigue, r eview results Reason Comments Escalation of Care Reason Onset Date Comments Community Monitoring Outreach 01/27/2023 Reason Onset Date Comments Anticoagulation Telephone Fu 02/03/2023 Nhan e INR Result Reason Comments Results Reason Comments Anticoagulation Telephone Fu 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) Procedures SPIROMETRY WITH DILATOR IF OBSTRUCTED BRNCDILAT RSPSE SPMTRY PRE&[place] [address] [place] [address] [place] [address] Referral ID Status Reason Start Date Expiration Date V isits Requested Visits Authorized [id number] Closed Auto-Generate d Referral 03/03/2023 04/01/2024 1 1 Specialty Diagnoses / Procedures Referred By Contac t Referred To [facility] Diagnoses Pulmonary fibrosis (HCC) Procedures SIX MINUTE WALK CARDIOPULMONARY [place] [address] [place] [address] [place] [address] Referral ID Status Reason Start Date Expiration Date V isits Requested Visits Authorized [id number] Closed Auto-Generate d Referral 03/03/2023 04/01/2024 1 1 Specialty Diagnoses / Procedures [facility] To [facility] Diagnoses Pulmonary fibrosis ([facility]) Procedures LUNG DIFFUSION CAPACITY (DLCO) DIFFUSING CAPACITY Nancy Sales MD [address] [place] [address] [address] Referral ID Status Reason Start Date Expiration Date V isits Requested Visits Authorized [id number] Closed Auto-Generate d Referral 03/03/2023 04/01/2024 1 1 Reason Onset Date Comments Community Monitoring Outreach 03/07/2023 CD M Telephonie Outreach - Engagement Reason Comments Follow Up lung tests and ECHO test results needs explained per patient, needs coumadin refill Reason Onset Date Comments Refill Request 04/01/2023 Reason Onset Date Comments Anticoagulation Telephone Fu 04/03/2023 Nhan e INR Result Reason Comments Bleeding/Bruising Reason Onset Date Comments Refill Request 04/24/2023 Reason Comments Consult Blood In Urine Specialty Diagnoses / Procedures Referred By Malick corrigan Referred To Contact Urology Diagnoses Hematuria, unspecified type Procedures CONSULT TO UROLOGY OFFICE/OUTPATIENT NEW HIGH MDM 60-74 MINUTES Jorge L Proctor MD [address] [place] [address] Referral ID Status Reason Start Date Expiration Date Visits Requested Visits Authorized [id number] Pending Review PCP Requested Referral 04/28/2023 04/27/2024 1 1 Reason Onset Date Comments Anticoagulation Telephone Fu 05/19/2023 Lab INR Result Reason Comments Follow Up discuss Ed and CT an d check ears Reason Onset Date Comments Refill Request 06/12/2023 Reason Onset Date Comments Refill Request 06/23/2023 Reason Comments Anticoagulation Telephone Fu Home INR Care Teams (unrecognized sec tion and content) Pipe Line Maintenance Supervisor Relationship Specialty Start Date End Date Macey Lee MD [address] [place], [place] [id number] PCP - General Internal Medicine 12/26/14 No, Referral Referring 06/16/18 13, Pharmacist [id number] [place] [address] Pharmacist Pharmacy 03/20/20 Joel Benavides, bulk sausage casing tier offToy Assembly Supervisor Internal Medicine 05/24/20 Jose Ramon Contreras MD [address] [place], [place] [phone] Specialty Liquid Compounder Cardiology 06/14/20 Franklin Jaramillo MD [address] [phone] Specialty Liquid Compounder Cardiology 07/23/21 Pipe Line Maintenance Supervisor Relationship Specialty Start Date End Date Macey Lee MD [address] [place], [place] [phone] PCP - General Internal Medicine 12/26/14 No, Referral Referring 06/16/18 13, Pharmacist [id number] [place] [address] Pharmacist Pharmacy 03/20/20 Joel Benavides, bulk sausage casing tier offToy Assembly Supervisor Internal Medicine 05/24/20 Jose Ramon Contreras MD [address] [place] [address] Specialty Liquid Compounder Cardiology 06/14/20 Franklin Jaramillo MD [address] [place]ON [address] [place] [phone] Specialty Liquid Compounder Cardiology 07/23/21 Pipe Line Maintenance Supervisor Relationship Specialty Start Date End Date Macey Lee MD [address] [place] [address] PCP - General Internal Medicine 12/26/14 No, Referral Referring 06/16/18 13, Pharmacist [id number] [place] [address] Pharmacist Pharmacy 03/20/20 Joel Benavides, bulk sausage casing tier offToy Assembly Supervisor Internal Medicine 05/24/20 Jose Ramon Contreras MD [address] [place] [address] Specialty Liquid Compounder Cardiology 06/14/20 Franklin Jaramillo MD [address] [phone] Specialty Liquid Compounder Cardiology 07/23/21 Pipe Line Maintenance Supervisor Relationship Specialty Start Date End Date Macey Lee MD [address] [place] [address] PCP - General Internal Medicine 12/26/14 No, Referral Referring 06/16/18 13, Pharmacist [phone] [place] [address] Pharmacist Pharmacy 03/20/20 Joel Benavides, bulk sausage casing tier offToy Assembly Supervisor Internal Medicine 05/24/20 Jose Ramon Contreras MD [address] [place] [address] Specialty Liquid Compounder Cardiology 06/14/20 Franklin Jaramillo MD [address] [place] [address] Specialty Liquid Compounder Cardiology 07/23/21 Pipe Line Maintenance Supervisor Relationship Specialty Start Date End Date Macey Lee MD [address] [place] [address] PCP - General Internal Medicine 12/26/14 No, Referral Referring 06/16/18 13, Pharmacist [phone] [place] [address] Pharmacist Pharmacy 03/20/20 Joel Benavides, bulk sausage casing tier offToy Assembly Supervisor Internal Medicine 05/24/20 Jose Ramon Contreras MD [address] [place] [address] Specialty Liquid Compounder Cardiology 06/14/20 Franklin Jaramillo MD [address] [place] [address] Specialty Liquid Compounder Cardiology 07/23/21 Pipe Line Maintenance Supervisor Relationship Specialty Start Date End Date Macey Lee MD [address] [place] [address] PCP - General Internal Medicine 12/26/14 No, Referral Referring 06/16/18 13, Pharmacist [phone] [place] [address] Pharmacist Pharmacy 03/20/20 Joel Benavides, bulk sausage casing tier offToy Assembly Supervisor Internal Medicine 05/24/20 Jose Ramon Contreras MD [address] [place] [address] Specialty Liquid Compounder Cardiology 06/14/20 Franklin Jaramillo MD [address] [place] [address] Specialty Liquid Compounder Cardiology 07/23/21 Pipe Line Maintenance Supervisor Relationship Specialty Start Date End Date Macey Lee MD [address] [place] [address] PCP - General Internal Medicine 12/26/14 No, Referral Referring 06/16/18 13, Pharmacist [phone] [place] [address] Pharmacist Pharmacy 03/20/20 Joel Benavides, bulk sausage casing tier offToy Assembly Supervisor Internal Medicine 05/24/20 Jose Ramon Contreras MD [address] [place] [address] Specialty Liquid Compounder Cardiology 06/14/20 Franklin Jaramillo MD [address] [place] [phone] Specialty Liquid Compounder Cardiology 07/23/21 Pipe Line Maintenance Supervisor Relationship Specialty Start Date End Date Macey Lee MD [address] [place] [address] PCP - General Internal Medicine 12/26/14 No, Referral Referring 06/16/18 13, Pharmacist [address] [place] [address] Pharmacist Pharmacy 03/20/20 Joel Benavides, bulk sausage casing tier offToy Assembly Supervisor Internal Medicine 05/24/20 Jose Ramon Contreras MD [address] [place] [address] Specialty Liquid Compounder Cardiology 06/14/20 Franklin Jaramillo MD [address] [place] [address] Specialty Liquid Compounder Cardiology 07/23/21 Pipe Line Maintenance Supervisor Relationship Specialty Start Date End Date Macey Lee MD [address] [place] [address] PCP - General Internal Medicine 12/26/14 No, Referral Referring 06/16/18 13, Pharmacist [phone] [place] [address] Pharmacist Pharmacy 03/20/20 Joel Benavides, bulk sausage casing tier offToy Assembly Supervisor Internal Medicine 05/24/20 Jose Ramon Contreras MD [address] [place] [address] Specialty Liquid Compounder Cardiology 06/14/20 Franklin Jaramillo MD [address] [place] [phone] Specialty Liquid Compounder Cardiology 07/23/21 Pipe Line Maintenance Supervisor Relationship Specialty Start Date End Date Macey Lee MD [address] [place] [address] PCP - General Internal Medicine 12/26/14 No, Referral Referring 06/16/18 13, Pharmacist [address] [place] [address] Pharmacist Pharmacy 03/20/20 Joel Benavides RN Toy Assembly Supervisor Internal Medicine 05/24/20 Jose Ramon Contreras MD [address] [place] [address] Specialty Liquid Compounder Cardiology 06/14/20 Franklin Jaramillo MD [address] [place] [phone] Specialty Liquid Compounder Cardiology 07/23/21 Pipe Line Maintenance Supervisor Relationship Specialty Start Date End Date Macey Lee MD [address] [place] [address] PCP - General Internal Medicine 12/26/14 No, Referral Referring 06/16/18 13, Pharmacist [address]698 [place] [address] Pharmacist Pharmacy 03/20/20 Joel Benavides, bulk sausage casing tier offToy Assembly Supervisor Internal Medicine 05/24/20 Jose Ramon Contreras MD [address] [place] [address] Specialty Liquid Compounder Cardiology 06/14/20 Franklin Jaramillo MD [address] [place] [address], [place] [address] Specialty Liquid Compounder Cardiology 07/23/21 Pipe Line Maintenance Supervisor Relationship Specialty Start Date End Date Macey Lee MD [address] [place] [address] PCP - General Internal Medicine 12/26/14 No, Referral Referring 06/16/18 13, Pharmacist [phone] [place] [address] Pharmacist Pharmacy 03/20/20 Joel Benavides, bulk sausage casing tier offToy Assembly Supervisor Internal Medicine 05/24/20 Jose Ramon Contreras MD [address] [place] [address] Specialty Liquid Compounder Cardiology 06/14/20 Franklin Jaramillo MD [address] [place] [phone] Specialty Liquid Compounder Cardiology 07/23/21 Pipe Line Maintenance Supervisor Relationship Specialty Start Date End Date Macey Lee MD [address] [place] [address] PCP - General Internal Medicine 12/26/14 No, Referral Referring 06/16/18 13, Pharmacist [phone] [place] [address] Pharmacist Pharmacy 03/20/20 Joel Benavides, bulk sausage casing tier offToy Assembly Supervisor Internal Medicine 05/24/20 Jose Ramon Contreras MD [address] [place] [address] Specialty Liquid Compounder Cardiology 06/14/20 Franklin Jaramillo MD [address] [place] [address] Specialty Liquid Compounder Cardiology 07/23/21 Pipe Line Maintenance Supervisor Relationship Specialty Start Date End Date Macey Lee MD [address] [place] [address] PCP - General Internal Medicine 12/26/14 No, Referral Referring 06/16/18 13, Pharmacist [phone] [place] [address] Pharmacist Pharmacy 03/20/20 Joel Benavides, bulk sausage casing tier offToy Assembly Supervisor Internal Medicine 05/24/20 Jose Ramon Contreras MD [address] [place] [address] Specialty Liquid Compounder Cardiology 06/14/20 Franklin Jaramillo MD [address] [place] [address], [place] [address] Specialty Liquid Compounder Cardiology 07/23/21 Pipe Line Maintenance Supervisor Relationship Specialty Start Date End Date Macey Lee MD [address] [place] [address] PCP - General Internal Medicine 12/26/14 No, Referral Referring 06/16/18 13, Pharmacist [phone] [place] [address] Pharmacist Pharmacy 03/20/20 Joel Benavides, bulk sausage casing tier offToy Assembly Supervisor Internal Medicine 05/24/20 Jose Ramon Contreras MD [address] [place] [address] Specialty Liquid Compounder Cardiology 06/14/20 Franklin Jaramillo MD [address] [place] [address] Specialty Liquid Compounder Cardiology 07/23/21 Pipe Line Maintenance Supervisor Relationship Specialty Start Date End Date Macey Lee MD [address] [place] [address] PCP - General Internal Medicine 12/26/14 No, Referral Referring 06/16/18 13, Pharmacist [address]74 [place] [address] Pharmacist Pharmacy 03/20/20 Joel Benavides, bulk sausage casing tier offToy Assembly Supervisor Internal Medicine 05/24/20 Jose Ramon Contreras MD [address] [place] [address] Specialty Liquid Compounder Cardiology 06/14/20 Franklin Jaramillo MD [address] [place] [phone] Specialty Liquid Compounder Cardiology 07/23/21 Pipe Line Maintenance Supervisor Relationship Specialty Start Date End Date Macey Lee MD [address] [place] [address] PCP - General Internal Medicine 12/26/14 No, Referral Referring 06/16/18 13, Pharmacist [address] [place] [address] Pharmacist Pharmacy 03/20/20 Joel Benavides RN Toy Assembly Supervisor Internal Medicine 05/24/20 Jose Ramon Contreras MD [address] [place] [address] Specialty Liquid Compounder Cardiology 06/14/20 Franklin Jaramillo MD [address] [address] Specialty Liquid Compounder Cardiology 07/23/21 Pipe Line Maintenance Supervisor Relationship Specialty Start Date End Date Macey Lee MD [address] [place] [address] PCP - General Internal Medicine 12/26/14 No, Referral Referring 06/16/18 13, Pharmacist [address] [place] [address] Pharmacist Pharmacy 03/20/20 Joel Benavides, bulk sausage casing tier offToy Assembly Supervisor Internal Medicine 05/24/20 Jose Ramon Contreras MD [address] [place] [address] Specialty Liquid Compounder Cardiology 06/14/20 Franklin Jaramillo MD [address] [place] [address], [place] [address] Specialty Liquid Compounder Cardiology 07/23/21 Pipe Line Maintenance Supervisor Relationship Specialty Start Date End Date Macey Lee MD [address] [place] [address] PCP - General Internal Medicine 12/26/14 No, Referral Referring 06/16/18 13, Pharmacist [address] [place] [address] Pharmacist Pharmacy 03/20/20 Joel Benavides, bulk sausage casing tier offToy Assembly Supervisor Internal Medicine 05/24/20 Jose Ramon Contreras MD [address] [place] [address] Specialty Liquid Compounder Cardiology 06/14/20 Franklin Jaramillo MD [address] [place] [phone] Specialty Liquid Compounder Cardiology 07/23/21 Pipe Line Maintenance Supervisor Relationship Specialty Start Date End Date Macey Lee MD [address] [place] [address] PCP - General Internal Medicine 12/26/14 No, Referral Referring 06/16/18 13, Pharmacist [address] [place] [address] Pharmacist Pharmacy 03/20/20 Joel Benavides, bulk sausage casing tier offToy Assembly Supervisor Internal Medicine 05/24/20 Jose Ramon Contreras MD [address] [place] [address] Specialty Liquid Compounder Cardiology 06/14/20 Franklin Jaramillo MD [address] [place] [address], [place] [address] Specialty Liquid Compounder Cardiology 07/23/21 Pipe Line Maintenance Supervisor Relationship Specialty Start Date End Date Macey Lee MD [address] [place] [address] PCP - General Internal Medicine 12/26/14 No, Referral Referring 06/16/18 13, Pharmacist [address] [place] [address] Pharmacist Pharmacy 03/20/20 Makayla Maldonado, bulk sausage casing tier offToy Assembly Supervisor Internal Medicine 05/24/20 Jose Ramon Contreras MD [address] [place] [address] Specialty Liquid Compounder Cardiology 06/14/20 Franklin Jaramillo MD [address] [place] [phone] Specialty Liquid Compounder Cardiology 07/23/21 Pipe Line Maintenance Supervisor Relationship Specialty Start Date End Date Macey Lee MD [address] [place] [address] PCP - General Internal Medicine 12/26/14 No, Referral Referring 06/16/18 13, Pharmacist [address] [place] [address] Pharmacist Pharmacy 03/20/20 Makayla Maldonado, bulk sausage casing tier offToy Assembly Supervisor Internal Medicine 05/24/20 Jose Ramon Contreras MD [address] [place] [address] Specialty Liquid Compounder Cardiology 06/14/20 Franklin Jaramillo MD [address] [place] [phone] Specialty Liquid Compounder Cardiology 07/23/21 Pipe Line Maintenance Supervisor Relationship Specialty Start Date End Date Macey Lee MD [address] [place] [address] PCP - General Internal Medicine 12/26/14 No, Referral Referring 06/16/18 13, Pharmacist [address] [place] [address] Pharmacist Pharmacy 03/20/20 Makayla Maldonado, bulk sausage casing tier offToy Assembly Supervisor Internal Medicine 05/24/20 Jose Ramon Contreras MD [address] [place] [address] Specialty Liquid Compounder Cardiology 06/14/20 Franklin Jaramillo MD [address] [place] [address], [place] [address] Specialty Liquid Compounder Cardiology 07/23/21 Pipe Line Maintenance Supervisor Relationship Specialty Start Date End Date Macey Lee MD [address] [place] [address] PCP - General Internal Medicine 12/26/14 No, Referral Referring 06/16/18 13, Pharmacist [phone] [place] [address] Pharmacist Pharmacy 03/20/20 Makayla Maldonado, bulk sausage casing tier offToy Assembly Supervisor Internal Medicine 05/24/20 Jose Ramon Contreras MD [address] [place] [address] Specialty Liquid Compounder Cardiology 06/14/20 Franklin Jaramillo MD [address] [address] Specialty Liquid Compounder Cardiology 07/23/21 Pipe Line Maintenance Supervisor Relationship Specialty Start Date End Date Macey Lee MD [address] [place] [address] PCP - General Internal Medicine 12/26/14 No, Referral Referring 06/16/18 13, Pharmacist [address]173 [place] [address] Pharmacist Pharmacy 03/20/20 Makayla Maldonado, bulk sausage casing tier offToy Assembly Supervisor Internal Medicine 05/24/20 Jose Ramon Contreras MD [address] [place] [address] Specialty Liquid Compounder Cardiology 06/14/20 Franklin Jaramillo MD [address] [place] [phone] Specialty Liquid Compounder Cardiology 07/23/21 Pipe Line Maintenance Supervisor Relationship Specialty Start Date End Date Macey Lee MD [address] [place] [address] PCP - General Internal Medicine 12/26/14 No, Referral Referring 06/16/18 13, Pharmacist [address] [place] [address] Pharmacist Pharmacy 03/20/20 Makayla Maldonado, bulk sausage casing tier offToy Assembly Supervisor Internal Medicine 05/24/20 Jose Ramon Contreras MD [address] [place] [address] Specialty Liquid Compounder Cardiology 06/14/20 Franklin Jaramillo MD [address] [place] [phone] Specialty Liquid Compounder Cardiology 07/23/21 Pipe Line Maintenance Supervisor Relationship Specialty Start Date End Date Macey Lee MD [address] [place] [address] PCP - General Internal Medicine 12/26/14 13, Pharmacist [address] [place] [address] Pharmacist Pharmacy 03/20/20 Makayla Maldonado, bulk sausage casing tier offToy Assembly Supervisor Internal Medicine 05/24/20 Jose Ramon Contreras MD [address] [place] [address] Specialty Liquid Compounder Cardiology 06/14/20 Franklin Jaramillo MD [address] [place] [address] Specialty Liquid Compounder Cardiology 07/23/21 Nancy Sales MD [address] [place] [address] Specialty Liquid Compounder Pulmonary Disease 08/21/22 Natalia [facility]affney MD [facility] [facility] [address] [address] Specialty Liquid Compounder Rheumatology 08/21/22 Pipe Line Maintenance Supervisor Relationship Specialty Start Date End Date Macey Lee MD [address] [place] [address] PCP - General Internal Medicine 12/26/14, Pharmacist [address] [place] [address] Pharmacist Pharmacy 03/20/20 Makayla Maldonado, bulk sausage casing tier offToy Assembly Supervisor Internal Medicine 05/24/20 Jose Ramon Contreras MD [address] [place] [address] Specialty Liquid Compounder Cardiology 06/14/20 Franklin Jaramillo MD [address] [address] Specialty Liquid Compounder Cardiology 07/23/21 Nancy Sales MD [address] [place] [address] Specialty Liquid Compounder Pulmonary Disease 08/21/22 Natalia [facility]affney MD [address] [facility] [address] [address] Specialty Liquid Compounder Rheumatology 08/21/22 Pipe Line Maintenance Supervisor Relationship Specialty Start Date End Date Macey Lee MD [address] [place] [address] PCP - General Internal Medicine 12/26/14, Pharmacist [address] [place] [address] Pharmacist Pharmacy 03/20/20 Makayla Maldonado, bulk sausage casing tier offToy Assembly Supervisor Internal Medicine 05/24/20 Jose Ramon Contreras MD [address] [place] [address] Specialty Liquid Compounder Cardiology 06/14/20 Franklin Jaramillo MD [address] [address] Specialty Liquid Compounder Cardiology 07/23/21 Nancy Sales MD [address] [place] [address] Specialty Liquid Compounder Pulmonary Disease 08/21/22 Natalia Gaffney MD [address] [address] Specialty Liquid Compounder Rheumatology 08/21/22 Pipe Line Maintenance Supervisor Relationship Specialty Start Date End Date Macey Lee MD [address] [place] [address] PCP - General Internal Medicine 12/26/14 13, Pharmacist [phone] [place] [address] Pharmacist Pharmacy 03/20/20 Makayla Maldonado, bulk sausage casing tier offToy Assembly Supervisor Internal Medicine 05/24/20 Jose Ramon Contreras MD [address] [place] [address] Specialty Liquid Compounder Cardiology 06/14/20 Franklin Jaramillo MD [address] [address] Specialty Liquid Compounder Cardiology 07/23/21 Nancy Sales MD [address] [place] [address] Specialty Liquid Compounder Pulmonary Disease 08/21/22 Natalia Gaffney MD [address] [address] Specialty Liquid Compounder Rheumatology 08/21/22 Pipe Line Maintenance Supervisor Relationship Specialty Start Date End Date Macey Lee MD [address] [place], [place] [address] PCP - General Internal Medicine 12/26/14 13, Pharmacist [address] [place] [address] Pharmacist Pharmacy 03/20/20 Makayla Maldonado, bulk sausage casing tier offToy Assembly Supervisor Internal Medicine 05/24/20 Jose Ramon Contreras MD [address] [place] [address] Specialty Liquid Compounder Cardiology 06/14/20 Franklin Jaramillo MD [address] [place] [phone] Specialty Liquid Compounder Cardiology 07/23/21 Nancy Sales MD [address] [place] [address] Specialty Liquid Compounder Pulmonary Disease 08/21/22 Natalia Gaffney MD [address] [facility] [address] [place] [address] Specialty Liquid Compounder Rheumatology 08/21/22 Pipe Line Maintenance Supervisor Relationship Specialty Start Date End Date Macey Lee MD [address] [place], [place] [address] PCP - General Internal Medicine 12/26/14 No, Referral Referring 06/16/18 08/19/22 13, Pharmacist [address] [place] [address] Pharmacist Pharmacy 03/20/20 Makayla Maldonado, bulk sausage casing tier offToy Assembly Supervisor Internal Medicine 05/24/20 Jose Ramon Contreras MD [address] [place] [address] Specialty Liquid Compounder Cardiology 06/14/20 Franklin Jaramillo MD [address] [place] [address] Specialty Liquid Compounder Cardiology 07/23/21 Nancy Sales MD [address] [place] [address] Specialty Liquid Compounder Pulmonary Disease 08/21/22 Natalia Gaffney MD [address] [place] [address] Specialty Liquid Compounder Rheumatology 08/21/22 Pipe Line Maintenance Supervisor Relationship Specialty Start Date End Date Macey Lee MD [address] [place] [address] PCP - General Internal Medicine 12/26/14 13, Pharmacist [address] [place] [address] Pharmacist Pharmacy 03/20/20 Makayla Maldonado, bulk sausage casing tier offToy Assembly Supervisor Internal Medicine 05/24/20 Jose Ramon Contreras MD [address] [place] [address] Specialty Liquid Compounder Cardiology 06/14/20 Franklin Jaramillo MD [address] [address] Specialty Liquid Compounder Cardiology 07/23/21 Nancy Sales MD [address] [place] [address] Specialty Liquid Compounder Pulmonary Disease 08/21/22 Natalia Gaffney MD [address] [place] [address] Specialty Liquid Compounder Rheumatology 08/21/22 Pipe Line Maintenance Supervisor Relationship Specialty Start Date End Date Macey Lee MD [address] [place] [address] PCP - General Internal Medicine 12/26/14, Pharmacist [address] [place] [address] Pharmacist Pharmacy 03/20/20 Makayla Maldonado, bulk sausage casing tier offToy Assembly Supervisor Internal Medicine 05/24/20 Jose Ramon Contreras MD [address] [place] [address] Specialty Liquid Compounder Cardiology 06/14/20 Franklin Jaramillo MD [address] [address] Specialty Liquid Compounder Cardiology 07/23/21 Nancy Sales MD [address] [place] [address] Specialty Liquid Compounder Pulmonary Disease 08/21/22 Natalia [facility]affney MD [address] [facility] [address] [place] [address] Specialty Liquid Compounder Rheumatology 08/21/22 Pipe Line Maintenance Supervisor Relationship Specialty Start Date End Date Macey Lee MD [address] [place] [address] PCP - General Internal Medicine 12/26/14 13, Pharmacist [address] [place] [address] Pharmacist Pharmacy 03/20/20 Makayla Maldonado, bulk sausage casing tier offToy Assembly Supervisor Internal Medicine 05/24/20 Jose Ramon Contreras MD [address] [place] [address] Specialty Liquid Compounder Cardiology 06/14/20 Franklin Jaramillo MD [address] [address] Specialty Liquid Compounder Cardiology 07/23/21 Nancy Sales MD [address] [place] [address] Specialty Liquid Compounder Pulmonary Disease 08/21/22 Natalia Gaffney MD [address] [place] [address] Specialty Liquid Compounder Rheumatology 08/21/22 Pipe Line Maintenance Supervisor Relationship Specialty Start Date End Date Macey Lee MD [address] [place] [address] PCP - General Internal Medicine 12/26/14 13, Pharmacist [address] [place] [address] Pharmacist Pharmacy 03/20/20 Makayla Maldonado, bulk sausage casing tier offToy Assembly Supervisor Internal Medicine 05/24/20 Jose Ramon Contreras MD [address] [place] [address] Specialty Liquid Compounder Cardiology 06/14/20 Franklin Jaramillo MD [address] [address] Specialty Liquid Compounder Cardiology 07/23/21 Nancy Sales MD [address] [place] [address] Specialty Liquid Compounder Pulmonary Disease 08/21/22 Natalia Gaffney MD [address] [place] [address] Specialty Liquid Compounder Rheumatology 08/21/22 Pipe Line Maintenance Supervisor Relationship Specialty Start Date End Date Macey Lee MD [address] [place] [address] PCP - General Internal Medicine 12/26/14 13, Pharmacist [address] [place] [address] Pharmacist Pharmacy 03/20/20 Makayla Maldonado, bulk sausage casing tier offToy Assembly Supervisor Internal Medicine 05/24/20 Jose Ramon Contreras MD [address] [place] [address] Specialty Liquid Compounder Cardiology 06/14/20 Franklin Jaramillo MD [address] [place] [phone] Specialty Liquid Compounder Cardiology 07/23/21 Nancy Sales MD [address] [place] [address] Specialty Liquid Compounder Pulmonary Disease 08/21/22 Natalia Gaffney MD [address] [address] Specialty Liquid Compounder Rheumatology 08/21/22 Pipe Line Maintenance Supervisor Relationship Specialty Start Date End Date Macey Lee MD [address] [place] [address] PCP - General Internal Medicine 12/26/14 13, Pharmacist [address] [place] [address] Pharmacist Pharmacy 03/20/20 Makayla Maldonado, bulk sausage casing tier offToy Assembly Supervisor Internal Medicine 05/24/20 Jose Ramon Contreras MD [address] [place] [address] (Fax) Specialty Liquid Compounder Cardiology 06/14/20 Franklin Jaramillo MD [address] [place] [phone] Specialty Liquid Compounder Cardiology 07/23/21 Nancy Sales MD [address] [place] [address] Specialty Liquid Compounder Pulmonary Disease 08/21/22 Natalia Gaffney MD [address] [address] Specialty Liquid Compounder Rheumatology 08/21/22 Pipe Line Maintenance Supervisor Relationship Specialty Start Date End Date Macey Lee MD [address] [place] [address] PCP - General Internal Medicine 12/26/14 13, Pharmacist [address] [place] [address] Pharmacist Pharmacy 03/20/20 Makayla Maldonado bulk sausage casing tier offToy Assembly Supervisor Internal Medicine 05/24/20 Jose Ramon Contreras MD [address] [place] [address] Specialty Liquid Compounder Cardiology 06/14/20 Franklin Jaramillo MD [address] [place] [phone] Specialty Liquid Compounder Cardiology 07/23/21 Nancy Sales MD [address] [place] [address] Specialty Liquid Compounder Pulmonary Disease 08/21/22 Natalia Gaffney MD [address] [facility] [address] [place] [address] Specialty Liquid Compounder Rheumatology 08/21/22 Pipe Line Maintenance Supervisor Relationship Specialty Start Date End Date Macey Lee MD [address] [place] [address] PCP - General Internal Medicine 12/26/14 13, Pharmacist [address] [place] [address] Pharmacist Pharmacy 03/20/20 Makayla Maldonado bulk sausage casing tier offToy Assembly Supervisor Internal Medicine 05/24/20 Jose Ramon Contreras MD [address] [place] [address] Specialty Liquid Compounder Cardiology 06/14/20 Franklin Jaramillo MD [address] [address] Specialty Liquid Compounder Cardiology 07/23/21 Nancy Sales MD [address] [place] [address] Specialty Liquid Compounder Pulmonary Disease 08/21/22 Natalia Gaffney MD [address] [address] Specialty Liquid Compounder Rheumatology 08/21/22 Pipe Line Maintenance Supervisor Relationship Specialty Start Date End Date Macey Lee MD [address] [place] [address] PCP - General Internal Medicine 12/26/14, Pharmacist [address] [place] [address] Pharmacist Pharmacy 03/20/20 Makayla Maldonado, bulk sausage casing tier offToy Assembly Supervisor Internal Medicine 05/24/20 Jose Ramon Contreras MD [address] [place] [address] Specialty Liquid Compounder Cardiology 06/14/20 Franklin Jaramillo MD [address] [address] Specialty Liquid Compounder Cardiology 07/23/21 Nancy Sales MD [address] [place] [address] Specialty Liquid Compounder Pulmonary Disease 08/21/22 Natalia Gaffney MD [address] [address] Specialty Liquid Compounder Rheumatology 08/21/22 Pipe Line Maintenance Supervisor Relationship Specialty Start Date End Date Macey Lee MD [address] [place] [address] PCP - General Internal Medicine 12/26/14, Pharmacist [phone] [place] [address] Pharmacist Pharmacy 03/20/20 Makayla Maldonado, bulk sausage casing tier offToy Assembly Supervisor Internal Medicine 05/24/20 Jose Ramon Contreras MD [address] [place] [address] Specialty Liquid Compounder Cardiology 06/14/20 Franklin Jaramillo MD [address] [address] Specialty Liquid Compounder Cardiology 07/23/21 Nancy Sales MD [address] [place] [address] Specialty Liquid Compounder Pulmonary Disease 08/21/22 Natalia Gaffney MD [address] [place] [address] Specialty Liquid Compounder Rheumatology 08/21/22 Pipe Line Maintenance Supervisor Relationship Specialty Start Date End Date Macey Lee MD [address] [place], [place] [id number] PCP - General Internal Medicine 12/26/14 No, Referral Referring 06/16/18 08/19/22 13, Pharmacist [phone] [place] [address] Pharmacist Pharmacy 03/20/20 Makayla Maldonado, bulk sausage casing tier offToy Assembly Supervisor Internal Medicine 05/24/20 Jose Ramon Contreras MD [address] [place] [address] Specialty Liquid Compounder Cardiology 06/14/20 Franklin Jaramillo MD [address] [address] Specialty Liquid Compounder Cardiology 07/23/21 Nancy Sales MD [address] [place] [address] Specialty Liquid Compounder Pulmonary Disease 08/21/22 Natalia Gaffney MD [address] [place] [address] Specialty Liquid Compounder Rheumatology 08/21/22 Pipe Line Maintenance Supervisor Relationship Specialty Start Date End Date Macey Lee MD [address] [place], [place] [id number] PCP - General Internal Medicine 12/26/14 13, Pharmacist [phone] [place] [address] Pharmacist Pharmacy 03/20/20 Makayla Maldonado, bulk sausage casing tier offToy Assembly Supervisor Internal Medicine 05/24/20 Jose Ramon Contreras MD [address] [place] [address] Specialty Liquid Compounder Cardiology 06/14/20 Franklin Jaramillo MD [address] [address] Specialty Liquid Compounder Cardiology 07/23/21 Nancy Sales MD [address] [place] [address] Specialty Liquid Compounder Pulmonary Disease 08/21/22 Natalia Gaffney MD [address] [facility] [address] [place] [address] Specialty Liquid Compounder Rheumatology 08/21/22 Pipe Line Maintenance Supervisor Relationship Specialty Start Date End Date Macey Lee MD [address] [place], [place] [address]4761 PCP - General Internal Medicine 12/26/14 13, Pharmacist [address] [place] [address] Pharmacist Pharmacy 03/20/20 Makayla Maldonado, bulk sausage casing tier offToy Assembly Supervisor Internal Medicine 05/24/20 Jose Ramon Contreras MD [address] [place] [address] Specialty Liquid Compounder Cardiology 06/14/20 Franklin Jaramillo MD [address] JON [address] [place] [phone] Specialty Liquid Compounder Cardiology 07/23/21 Nancy Sales MD [address] [facility] [place] [address] Specialty Liquid Compounder Pulmonary Disease 08/21/22 Natalia Gaffney MD [address] [address] Specialty Liquid Compounder Rheumatology 08/21/22 Pipe Line Maintenance Supervisor Relationship Specialty Start Date End Date Macey Lee MD [address] [place], [place] [id number] PCP - General Internal Medicine 12/26/14 13, Pharmacist [phone] [place] [address] Pharmacist Pharmacy 03/20/20 Jose Ramon Contreras MD [address] [place] [address] Specialty Liquid Compounder Cardiology 06/14/20 Franklin Jaramillo MD [address] [address] Specialty Liquid Compounder Cardiology 07/23/21 Nancy Sales MD [address] [facility] [place] [place] [address] Specialty Liquid Compounder Pulmonary Disease 08/21/22 Natalia Gaffney MD [address] [facility] Mahn[address] [address] Specialty Liquid Compounder Rheumatology 08/21/22 Tamra Mock, VIKY [address] [place], [place] [id number] Toy Assembly Supervisor Internal Medicine 01/15/23 Pipe Line Maintenance Supervisor Relationship Specialty Start Date End Date Macey Lee MD [address] [place], [place] [id number] PCP - General Internal Medicine 12/26/14 13, Pharmacist [phone] [place] [address] Pharmacist Pharmacy 03/20/20 Jose Ramon Contreras MD [address] [place] [address] Specialty Liquid Compounder Cardiology 06/14/20 Franklin Jaramillo MD [address] [address] Specialty Liquid Compounder Cardiology 07/23/21 Nancy Sales MD [address] [place] [address] Specialty Liquid Compounder Pulmonary Disease 08/21/22 Natalia Gaffnye MD [address] [facility] [address] [place] [address] Specialty Liquid Compounder Rheumatology 08/21/22 Tamra oMck, RN [address] [place] [address] Toy Assembly Supervisor Internal Medicine 01/15/23 Pipe Line Maintenance Supervisor Relationship Specialty Start Date End Date Macey Lee MD [address] [place] [address] PCP - General Internal Medicine 12/26/14 13, Pharmacist [phone] [place] [address] Pharmacist Pharmacy 03/20/20 Jose Ramon Contreras MD [address] [place] [address] Specialty Liquid Compounder Cardiology 06/14/20 Franklin Jaramillo MD [address] [address] Specialty Liquid Compounder Cardiology 07/23/21 Nancy Sales MD [address] [place] [address] Specialty Liquid Compounder Pulmonary Disease 08/21/22 Natalia Gaffney MD [address] [place] [address] Specialty Liquid Compounder Rheumatology 08/21/22 Tamra Mock, RN [address] [place] [address] Toy Assembly Supervisor Internal Medicine 01/15/23 Pipe Line Maintenance Supervisor Relationship Specialty Start Date End Date Macey Lee MD [address] [place] [address] PCP - General Internal Medicine 12/26/14 13, Pharmacist [address] [place] [address] Pharmacist Pharmacy 03/20/20 Jose Ramon Contreras MD [address] [place] [address] Specialty Liquid Compounder Cardiology 06/14/20 Franklin Jaramillo MD [address] [address] Specialty Liquid Compounder Cardiology 07/23/21 Nancy Sales MD [address] [place] [address] Specialty Liquid Compounder Pulmonary Disease 08/21/22 Natalia Gaffney MD [address] [place] [address] Specialty Liquid Compounder Rheumatology 08/21/22 Tamra Mock, VIKY [address] [place] [address] Toy Assembly Supervisor Internal Medicine 01/15/23 Pipe Line Maintenance Supervisor Relationship Specialty Start Date End Date Macey Lee MD [address] [place] [address] PCP - General Internal Medicine 12/26/14 13, Pharmacist [address] [place] [address] Pharmacist Pharmacy 03/20/20 Jose Ramon Contreras MD [address] [place] [address] (Fax) Specialty Liquid Compounder Cardiology 06/14/20 Franklin Jaramillo MD [address] [address] (Fax) Specialty Liquid Compounder Cardiology 07/23/21 Nancy Sales MD [address] [place] [address] Specialty Liquid Compounder Pulmonary Disease 08/21/22 Natalia Gaffney MD [address] [address] Specialty Liquid Compounder Rheumatology 08/21/22 Tamra Mock, RN [address] [place], [place] [id number] Toy Assembly Supervisor Internal Medicine 01/15/23 Pipe Line Maintenance Supervisor Relationship Specialty Start Date End Date Macey Lee MD [address] [place] [address] PCP - General Internal Medicine 12/26/14 13, Pharmacist [address] [place] [address] Pharmacist Pharmacy 03/20/20 Jose Ramon Contreras MD [address] [place] [address] (Fax) Specialty Liquid Compounder Cardiology 06/14/20 Franklin Jaramillo MD [address] [phone] Specialty Liquid Compounder Cardiology 07/23/21 Nancy Sales MD [address] [place] [address] Specialty Liquid Compounder Pulmonary Disease 08/21/22 Natalia Gaffney MD [address] [place] [address] Specialty Liquid Compounder Rheumatology 08/21/22 Tamra Mock, RN [address] [place] [address] Toy Assembly Supervisor Internal Medicine 01/15/23 Pipe Line Maintenance Supervisor Relationship Specialty Start Date End Date Macey Lee MD [address] [place] [address] PCP - General Internal Medicine 12/26/14 13, Pharmacist [address] [place] [address] Pharmacist Pharmacy 03/20/20 Jose Ramon Contreras MD [address] [place] [address] Specialty Liquid Compounder Cardiology 06/14/20 Franklin Jaramillo MD [address] [phone] Specialty Liquid Compounder Cardiology 07/23/21 Nancy Sales MD [address] [place] [address] Specialty Liquid Compounder Pulmonary Disease 08/21/22 Natalia Gaffney MD [address] [place] [address] Specialty Liquid Compounder Rheumatology 08/21/22 Tamra Mock, VIKY [address] [place], [place] [address] Toy Assembly Supervisor Internal Medicine 01/15/23 Pipe Line Maintenance Supervisor Relationship Specialty Start Date End Date Macey Lee MD [address] [place] [address] PCP - General Internal Medicine 12/26/14 13, Pharmacist [address] [place] [address] Pharmacist Pharmacy 03/20/20 Jose Ramon Contreras MD [address] [place] [address] (Fax) Specialty Liquid Compounder Cardiology 06/14/20 Franklin Jaramillo MD [address] [phone] (Fax) Specialty Liquid Compounder Cardiology 07/23/21 Nancy Sales MD [address] [facility] [place] [address] Specialty Liquid Compounder Pulmonary Disease 08/21/22 Natalia Gaffney MD [address] [facility] [address] [place] [address] Specialty Liquid Compounder Rheumatology 08/21/22 Tamra Mock, RN [address] [place] [address] Toy Assembly Supervisor Internal Medicine 01/15/23 Pipe Line Maintenance Supervisor Relationship Specialty Start Date End Date Macey Lee MD [address] [place] [address] PCP - General Internal Medicine 12/26/14 13, Pharmacist [address] [place] [address] Pharmacist Pharmacy 03/20/20 Jose Ramon Contreras MD [address] [place] [address] (Fax) Specialty Liquid Compounder Cardiology 06/14/20 Franklin Jaramillo MD [address] [address] Specialty Liquid Compounder Cardiology 07/23/21 Nancy Sales MD [address] [place] [address] Specialty Liquid Compounder Pulmonary Disease 08/21/22 Natalia Gaffney MD [address] [place] [address] Specialty Liquid Compounder Rheumatology 08/21/22 Tamra Mock, VIKY [address] [place] [address] Toy Assembly Supervisor Internal Medicine 01/15/23 Pipe Line Maintenance Supervisor Relationship Specialty Start Date End Date Macey Lee MD [facility] [place] [address] PCP - General Internal Medicine 12/26/14 13, Pharmacist [address] [place] [address] Pharmacist Pharmacy 03/20/20 Jose Ramon Contreras MD [address] [place] [address] Specialty Liquid Compounder Cardiology 06/14/20 Franklin Jaramillo MD [address] [phone] Specialty Liquid Compounder Cardiology 07/23/21 Nancy Sales MD [address] [place] [address] Specialty Liquid Compounder Pulmonary Disease 08/21/22 Natalia Gaffney MD [address] [address] Specialty Liquid Compounder Rheumatology 08/21/22 Tamra Mock RN [address] [place] [address] Toy Assembly Supervisor Internal Medicine 01/15/23 Pipe Line Maintenance Supervisor Relationship Specialty Start Date End Date Macey Lee MD [address] [place] [address] PCP - General Internal Medicine 12/26/14, Pharmacist [address] [place] [address] Pharmacist Pharmacy 03/20/20 Jose Ramon Contreras MD [address] [place] [address] Specialty Liquid Compounder Cardiology 06/14/20 Franklin Jaramillo MD [address] [phone] Specialty Liquid Compounder Cardiology 07/23/21 Nancy Sales MD [address] [place] [address] Specialty Liquid Compounder Pulmonary Disease 08/21/22 Ntaalia Gaffney MD [address] [place] [address] Specialty Liquid Compounder Rheumatology 08/21/22 Tamra Mock RN [address] [place] [address] Toy Assembly Supervisor Internal Medicine 01/15/23 Pipe Line Maintenance Supervisor Relationship Specialty Start Date End Date Macey Lee MD [address] [place] [address] PCP - General Internal Medicine 12/26/14, Pharmacist [address] [place] [address] Pharmacist Pharmacy 03/20/20 Jose Ramon Contreras MD [address] [place] [address] (Fax) Specialty Liquid Compounder Cardiology 06/14/20 Franklin Jaramillo MD [address] [phone] (Fax) Specialty Liquid Compounder Cardiology 07/23/21 Nancy Sales MD [address] [place] [address] Specialty Liquid Compounder Pulmonary Disease 08/21/22 Natalia Gaffney MD [address] [facility] [address] [place] [address] Specialty Liquid Compounder Rheumatology 08/21/22 Tamra Mock, RN [address] [place] [address] Toy Assembly Supervisor Internal Medicine 01/15/23 Pipe Line Maintenance Supervisor Relationship Specialty Start Date End Date Macey Lee MD [address] [place] [address] PCP - General Internal Medicine 12/26/14 13, Pharmacist [address] [place] [address] Pharmacist Pharmacy 03/20/20 Jose Ramon Contreras MD [address] [place] [address] (Fax) Specialty Liquid Compounder Cardiology 06/14/20 Franklin Jaarmillo MD [address] [phone] (Fax) Specialty Liquid Compounder Cardiology 07/23/21 Nancy Sales MD [address] [place] [address] Specialty Liquid Compounder Pulmonary Disease 08/21/22 Natalia Gaffney MD [address] [address] Specialty Liquid Compounder Rheumatology 08/21/22 Tamra Mock RN [address] [place] [address] Toy Assembly Supervisor Internal Medicine 01/15/23 Pipe Line Maintenance Supervisor Relationship Specialty Start Date End Date Macey Lee MD [address] [place] [address] PCP - General Internal Medicine 12/26/14 13, Pharmacist [address] [place] [address] Pharmacist Pharmacy 03/20/20 Jose Ramon Contreras MD [address] [place] [address] Specialty Liquid Compounder Cardiology 06/14/20 Franklin Jaramillo MD [address] [address] Specialty Liquid Compounder Cardiology 07/23/21 Nancy Sales MD [address] [place] [address] Specialty Liquid Compounder Pulmonary Disease 08/21/22 Natalia Gaffney MD [address] [address] Specialty Liquid Compounder Rheumatology 08/21/22 Tamra Mock RN [address] [place] [address] Toy Assembly Supervisor Internal Medicine 01/15/23 Pipe Line Maintenance Supervisor Relationship Specialty Start Date End Date Macey Lee MD [address] [place] [address] PCP - General Internal Medicine 12/26/14, Pharmacist [address] [place] [address] Pharmacist Pharmacy 03/20/20 Jose Ramon Contreras MD [address] [place] [address] Specialty Liquid Compounder Cardiology 06/14/20 Franklin Jaramillo MD [address] [phone] Specialty Liquid Compounder Cardiology 07/23/21 Nancy Sales MD [address] [facility] [place] [address] Specialty Liquid Compounder Pulmonary Disease 08/21/22 Natalia Gaffney MD [address] [facility] [address] [place] [address] Specialty Liquid Compounder Rheumatology 08/21/22 Tamra Mock, RN [address] [place] [address] Toy Assembly Supervisor Internal Medicine 01/15/23 Pipe Line Maintenance Supervisor Relationship Specialty Start Date End Date Macey Lee MD [address] [place] [address] PCP - General Internal Medicine 12/26/14, Pharmacist [address] [place] [address] Pharmacist Pharmacy 03/20/20 Jose Ramon Contreras MD [address] [place] [address] (Fax) Specialty Liquid Compounder Cardiology 06/14/20 Franklin Jaramillo MD [address] [phone] (Fax) Specialty Liquid Compounder Cardiology 07/23/21 Nancy Sales MD [address] [place] [address] Specialty Liquid Compounder Pulmonary Disease 08/21/22 Natalia Gaffney MD [address] [place] [id number] Specialty Liquid Compounder Rheumatology 08/21/22 Tamra Mock, VIKY [address] [place] [address] Toy Assembly Supervisor Internal Medicine 01/15/23 Pipe Line Maintenance Supervisor Relationship Specialty Start Date End Date Macey Lee MD [address] [place] [address] PCP - General Internal Medicine 12/26/14 13, Pharmacist [address] [place] [address] Pharmacist Pharmacy 03/20/20 Jose Ramon Contreras MD [address] [place] [address] (Fax) Specialty Liquid Compounder Cardiology 06/14/20 Franklin Jaramillo MD [address] [phone] (Fax) Specialty Liquid Compounder Cardiology 07/23/21 Nancy Sales MD [address] [place], [place] [id number] Specialty Liquid Compounder Pulmonary Disease 08/21/22 Natalia Gaffney MD [address] [place] [phone] Specialty Liquid Compounder Rheumatology 08/21/22 Tamra Mock, VIKY [address] [place] [phone] Toy Assembly Supervisor Internal Medicine 01/15/23 FOR RECORDS PERTAINING TO PATIENTS WHO ARE OR HAVE BEEN ENROLLED IN A CHEMICAL DEPENDENCY/SUBSTANCEABUSE PROGRAM, SOME INFORMATION MAY BE OMITTED. This clinical summary was aggregated from multiple sources. Caution should be exercised in using it in the provision of clinical care. This summary normalizes information from multiple sources, and as a consequence, information in this document may materially change the coding, format and clinical context of patient data. In addition, data may be omitted in some cases. CLINICAL DECISIONS SHOULD BE BASED ON THE PRIMARY CLINICAL RECORDS. [facility] [employer] provides no warranty or guarantee of the accuracy or completeness of information in this document.
--- NOTE | 2023-08-16 12:39 | EKG12_ITS ---
Test Reason : Blood Pressure : / mmHG Vent. Rate : 062 BPM Atrial Rate : 153 BPM P-R Int : 000 ms QRS Dur : 110 ms QT Int : 426 ms P-R-T Axes : 000 065 068 degrees QTc Int : 432 ms Atrial fibrillation WITH PVC'S Incomplete left bundle branch block ST & T wave abnormality, consider lateral ischemia Abnormal ECG Confirmed by RUPERT SINGH, BLANKA ([id number]), school photograph editor MUKUND MULLEN ([id number]) on 08/18/2023 8:44:00 AM Referred By: ESTHER Confirmed By:BLANKA EMERY MD
[2023-08-16 13:09] VITALS: PULSE 66; RESP 16
[2023-08-16 13:12] LABS: Absolute Lymphocyte Count 1.09 X10^3/uL (0.83-4.51); Absolute Neutrophil Count 4.7 X10^3/uL (2.0-7.7); Basophil# 0.05 X10^3/uL; Basophil% 0.7 % (0-1); Eosinophils% 4.3 % (0-5); Hematocrit 38.3 % (40-54); Hemoglobin 12.3 g/dL (13.0-16.5); Lymphocyte # 1.09 X10^3/ul (0.83-4.51); Lymphocyte % 15.5 % (19-41); Mean Corp Hgb Conc 32.1 g/dL (32-36); Mean Corpuscular Hgb 31.9 pg (27.0-32.0); Mean Corpuscular Volume 99.5 fL (80-94); Mean Platelet Vol. 10.4 fl (6.2-12.0); Monocyte% 11.4 % (0-10); NRBC Flagged by Analyzer 0 % (0-5); Neutrophil # 4.73 X10^3/uL (2.7-7.7); Neutrophil % 67.4 % (47-70); Platelet Count 129 K/mm3 (150-450); RBC Distribution Width CV 14.8 % (11.6-14.6); RBC Distribution Width SD 54.3 fl (35.1-43.9); Red Blood Count 3.85 M/mm3 (4.6-6.2)
--- NOTE | 2023-08-16 13:27 | RAD_ITS ---
STUDY: X-RAY CHEST REASON FOR EXAM: Male, 77 years old. weakness TECHNIQUE: Single AP portable view of the chest. COMPARISON: January 27, 2023 FINDINGS: 1. Mild patchy interstitial infiltrates are scattered throughout both lungs on the background of chronic interstitial lung disease as well as pulmonary vascular congestion. 2. The heart is moderately enlarged but unchanged. Stable CABG clips 3. Stable left chest cardiac device and leads 4. Stable osseous structures 5. Stable mediastinal contours There is no demonstrated abnormality of the visualized soft tissue structures of the upper abdomen. RAD/Chest 1 View (Portable) IMPRESSION: Mild patchy interstitial infiltrates are scattered throughout both lungs on the background of chronic interstitial lung disease as well as pulmonary vascular congestion. Electronically Signed: Fausto Francisco MD at 14:01 EST ,
[2023-08-16 13:52] LABS: ALB/GLOB Ratio 0.8 RATIO (0.9-2.4); AST(SGOT) 30 U/L (15-37); Alanine Aminotransfer ALT/SGPT 18 U/L (16-61); Alkaline Phosphatase 370 U/L (45-117); Anion Gap 4 (5-15); BUN 24 mg/dL (7-18); Chloride 106 mmol/L (98-107); Creatinine, Serum 1.09 mg/dL (0.70-1.30); EST Glomerular Filtration Rate 69 mL/min (>60); Est Glom Filt Rate - Afr Amer 84 mL/min (>60); Estimated Creatinine Clearance 60.32 ml/min; Glucose 127 mg/dL (74-106); Potassium 4.2 mmol/L (3.5-5.1); Sodium Level 138 mmol/L (136-145); Troponin-I HS 20 pg/mL (3.0-78.0)
[2023-08-16 14:13] LABS: Bacteria 0 SEEN /hpf (None Seen); Mucous, Urine 0 SEEN /hpf (<or=2+); Red Blood Cells-Urine 0 SEEN /hpf (0-5); Squamous Epithelial Cells - UA 0 SEEN /hpf (0-5); White Blood Cells 0 SEEN /hpf (0-5)
[2023-08-16 14:14] LABS: Color, Urine Yellow (Yellow); Glucose, Dipstick 100 mg/dl (Normal); Ketone-Dipstick Negative (Negative); Leukocyte Esterase-Dipstick Negative /ul (Negative); Nitrite-Dipstick Negative (Negative); Occult Blood-Urine 150 /ul (Negative); Protein-Dipstick 30 mg/dl (Negative); Urine Bilirubin Dipstick Negative (Negative); Urine Clarity Clear (Clear); Urine Urobilinogen 1 mg/dl (Normal)
[2023-08-16] MEDS: 0.9% Normal Saline (1000mL) 1,000 ML 1000 ML IV (14:22)
[2023-08-16 14:56] LABS: BNP,B-Type NATRIURETIC PEPTIDE 256.3 pg/mL (0-100)
--- NOTE | 2023-08-16 15:17 | EDS_ITS ---
HPI History of Present Illness Chief Complaint: Weakness Narrative Narrative: 77-year-old male presenting with weakness. He states he normally can get up out of his chair without holding onto the hip handles but states now he has to push himself upward. He has difficulty walking but has not fallen. He is not using assist devices. Patient states that he has not had a fever but may have had some chills. No cough or shortness of breath. No nausea or vomiting. No chest pain. [facility] Medical History Anxiety and depression Bradycardia Chronic fatigue Congestive heart failure (CHF) Dyspepsia Dyspnea on exertion H/O measles H/O sick sinus syndrome History of pneumonia as a child Hyperlipidemia Hypertension Inguinal hernia (~2011) Interstitial lung disease Mitral and aortic heart valve diseases, unspecified Mitral valve regurgitation Panic attacks Permanent atrial fibrillation Posterior vitreous detachment of both eyes Presence of cardiac pacemaker Shoulder impingement syndrome Home Medications carvedilol 3.125 mg tablet 3.125 mg PO BID 08/27/17 [History Last Taken Unknown] citalopram 10 mg/5 mL oral solution 10 mg PO QDAY 08/27/17 [History Last Taken Unknown] fluticasone propionate 50 mcg/actuation nasal spray,suspension (Flonase Allergy Relief) 50 mcg intranasal ONCE 08/27/17 [History Last Taken Unknown] warfarin 2 mg tablet 2.5 mg PO QDAY 08/27/17 [History Last Taken Unknown] atorvastatin 20 mg tablet (Lipitor) 20 mg PO DAILY 04/22/22 [History Last Taken Unknown] pantoprazole 20 mg tablet,delayed release (Protonix) 40 mg PO DAILY 04/22/22 [History Last Taken Unknown] paroxetine HCl 10 mg tablet (Paxil) 10 mg PO DAILY 04/22/22 [History Last Taken Unknown] potassium chloride 10 mEq capsule,extended release 10 meq PO DAILY 04/22/22 [History Last Taken Unknown] sildenafil 25 mg tablet (Viagra) 25 mg PO DAILY 04/22/22 [History Last Taken Unknown] torsemide 20 mg tablet 20 mg PO DAILY 04/22/22 [History Last Taken Unknown] Allergy/AdvReac Type Severity Reaction Status Date / Time No Known Allergies Allergy Verified 08/16/23 12:09 Family History Other CAD (coronary artery disease) CVA (cerebral vascular accident) Heart disease Surgical History History of back surgery (~2006) History of inguinal hernia repair Mitral valve replaced (~1989) Social History Smoking Status: Never smoker ROS ROS ED ROS Narrative Generalized weakness Constitutional Constitutional ED: Denies chills, fever(s) or sweats Eyes Eyes: Denies blurry vision or change in vision ENT ENT ED: Denies ear pain or sore throat Cardiovascular Cardiovascular: Denies chest pain, palpitations or racing heartbeat Respiratory/Chest Respiratory/Chest: Denies cough, dyspnea or sputum Gastrointestinal Gastrointestinal: Denies abdominal pain, constipation, diarrhea, nausea or vomiting Genitourinary Genitourinary ED: Denies dysuria, hematuria or urinary frequency Musculoskeletal Musculoskeletal: Denies arthralgias, myalgias or neck pain Integumentary Denies abscess, Abrasions or rash Neurologic Neurologic: Denies headache(s), paresthesias or weakness Psychiatric Psychiatric: Denies anxiety, depression, suicidal ideation or suicidal thoughts Endocrine Endocrinology: Denies polydipsia or polyuria EXAM Physical Exam Const Vital Signs: 08/16/23 12:06 08/16/23 13:09 Temperature 97.8 F Temperature Source Temporal Pulse Rate 122 H 66 Respiratory Rate 18 16 Blood Pressure 131/67 H Blood Pressure Mean 88 Pulse Ox 94 Oxygen Delivery Method Room Air Room Air Positive well nourished General Appearance ED: NAD; Negative for pallor HEENT Reports moist mucous membranes Eyes PERRL Chest Wall inspection of chest normal Resp normal respiratory effort and clear to auscultation bilaterally Auscultation: Negative for rales, rhonchi or wheezes Cardio regular rate and regular rhythm GI normal to inspection, nondistended, normoactive bowel sounds Extremity normal to inspection Neuro oriented x3 and CN's II-XII intact bilaterally Sensorium / Orientation: alert Motor Exam: general weakness Psych mental status grossly normal Skin no rashes or lesions noted General Skin Exam: Negative for jaundice or pallor MDM MDM MDM Narrative Medical decision making narrative: 77-year-old male presenting generalized weakness. He has no other symptoms. He states is on Coumadin history of A-fib which exits at home and has been therapeutic. Patient denies any other symptoms except for maybe some chills. Patient will be tested for viral etiology. CBC will be obtained to assess white blood cell count, hemoglobin, platelets. CMP to assess liver function, renal function, electrolytes. Urinalysis to assess for UTI. Urinalysis negative. COVID, flu, RSV are all negative. Blood work is unremarkable. FTs were elevated however looking back at her lab work the other day he had similar findings. He is nonspecific. He is not having abdominal pain. EKG on my interpretation shows a sinus rhythm at a rate of 62 bpm. Chest x-ray my interpretation shows evidence of CHF. There is no evidence of pneumonia. Is not hypoxic, tachypneic, tachycardic. The medical record showed he had similar findings previously and did well with double dose torsemide 50 follow-up with cardiology. We discussed this and he wants to do this today. His is amenable to this as well. Patient discharged home in stable condition. Impression: 1. Weakness 2. Pulmonary vascular congestion Lab Data Attestation: I reviewed the patient's lab results. Labs: Laboratory Results - last 24 hr 08/16/23 08/16/23 13:02 14:09 WBC 7.0 RBC 3.85 L Hgb 12.3 L Hct 38.3 L MCV 99.5 H MCH 31.9 MCHC 32.1 RDW Std Deviation 54.3 H RDW Coeff of Darnell 14.8 H Plt Count 129 L MPV 10.4 Immature Gran % (Auto) 0.700 Neut % (Auto) 67.4 Lymph % (Auto) 15.5 L [place] % (Auto) 11.4 H Eos % (Auto) 4.3 Baso % (Auto) 0.7 Absolute Neuts (auto) 4.7 Absolute Lymphs (auto) 1.09 Nucleated RBC % 0 Sodium 138 Potassium 4.2 Chloride 106 Carbon Dioxide 28.0 Anion Gap 4 L BUN 24 H Creatinine 1.09 Estim Creat Clear Calc 60.32 Est GFR (MDRD) Af Amer 84 Est GFR (MDRD) Non-Af 69 BUN/Creatinine Ratio 22.0 H Glucose 127 H Calcium 9.0 Total Bilirubin 1.40 H AST 30 ALT 18 Alkaline Phosphatase 370 H Troponin I High Sens 20 B-Natriuretic Peptide 256.3 H Total Protein 7.0 Albumin 3.0 L Globulin 4.0 Albumin/Globulin Ratio 0.8 L Urine Color Yellow Urine Clarity Clear Urine pH 6.0 Ur Specific [place] 1.030 Urine Protein 30 H Urine Glucose (UA) 100 H Urine Ketones Negative Urine Occult Blood 150 H Urine Nitrite Negative Urine Bilirubin Negative Urine Urobilinogen 1 H Ur Leukocyte Esterase Negative Urine RBC 0 SEEN Urine WBC 0 SEEN Ur Squamous Epith Cells 0 SEEN Urine Bacteria 0 SEEN Urine Mucus 0 SEEN Radiography Diagnostic Testing: Clinical Impression(s) from Imaging Studies Chest X-Ray 08/16/23 13:27 IMPRESSION: Mild patchy interstitial infiltrates are scattered throughout both lungs on the background of chronic interstitial lung disease as well as pulmonary vascular congestion. Electronically Signed: Fausto Francisco MD at 14:01 EST Reading Location ID and State: [facility] / [place] , Service support , Discharge Plan Triage Chief Complaint: Weakness ED Provider: Da Tanner Dx/Rx/DC Orders Instructions: ED Weakness (Uncertain Cause) Prescriptions: No Action fluticasone propionate [Flonase Allergy Relief] 50 mcg/actuation spray,suspension 50 mcg INTRANASAL ONCE citalopram 10 mg/5 mL solution 10 mg PO QDAY warfarin 2 mg tablet 2.5 mg PO QDAY carvedilol 3.125 mg tablet 3.125 mg PO BID potassium chloride 10 mEq Capsule, Extended Release 10 meq PO DAILY paroxetine HCl [Paxil] 10 mg Tablet 10 mg PO DAILY atorvastatin [Lipitor] 20 mg Tablet 20 mg PO DAILY torsemide 20 mg Tablet 20 mg PO DAILY sildenafil [Viagra] 25 mg Tablet 25 mg PO DAILY pantoprazole [Protonix] 20 mg Tablet,Delayed Release (Dr/Ec) 40 mg PO DAILY Primary Care Provider: Alejandra Lee Referrals: Alejandra Lee MD [Primary Care Provider] - Disposition Disposition: Home, Self Care
[2023-08-16 15:34] VITALS: BP 138/78; PULSE 59; RESP 18; O2SAT 95
== END 2023-08-16 15:35 | disposition home or self-care (01) ==
PROVIDERS: Emergency Provider Student in an Organized Health Care Education/Training Program; PCP Internal Medicine; Visit Provider Student in an Organized Health Care Education/Training Program
DX: R53.1 Weakness (principal); I11.0 Hypertensive heart disease with heart failure; I50.9 Heart failure, unspecified; I48.21 Permanent atrial fibrillation; R26.2 Difficulty in walking, not elsewhere classified; E78.5 Hyperlipidemia, unspecified; R09.89 Other specified symptoms and signs involving the circulatory and respiratory systems; Z79.01 Long term (current) use of anticoagulants; Z79.899 Other long term (current) drug therapy; Z95.0 Presence of cardiac pacemaker; Z11.52 Encounter for screening for COVID-19
CPT/HCPCS: 71045; 80053; 81001; 83880; 84484; 85025; 87631; 93005; 96360; 99283; J7030

== ENCOUNTER 2023-08-21 10:03 | Inpatient (IN) | payer MEDICARE, SELFPAY ==
[2022-07-22 08:19] VITALS: BMI 24.4
[2023-08-21] VITALS (9 sets, daily range): BP systolic 128–160; BP diastolic 70–92; PULSE 68–76; RESP 18–32; TEMP 36.4–36.8; O2SAT 78–97; BMI 24.4; BMI 24.5
--- NOTE | 2023-08-21 10:32 | RAD_ITS ---
STUDY: X-RAY CHEST REASON FOR EXAM: Male, 77 years old. Sob TECHNIQUE: Single AP portable view of the chest. COMPARISON: Comparison is made with prior study dated August 16, 2023. FINDINGS: EKG electrodes are seen. Diffuse bilateral airspace disease. There is no demonstrated pleural abnormality. Sternal cerclage wires and vascular clips are present from a prior sternotomy and coronary artery bypass graft procedure (CABG). A left-sided dual-chamber pacemaker is seen. Cardiomegaly. Normal mediastinum and shawna. Normal visualized pulmonary arteries. Normal visualized aortic arch and descending thoracic aorta. There are diffuse degenerative changes of the visualized thoracic spine. Normal visualized ribs, clavicles, and shoulders. There is no demonstrated abnormality of the visualized soft tissue structures of the upper abdomen. RAD/Chest 1 View (Portable) IMPRESSION: Diffuse bilateral airspace disease. This most likely secondary to CHF and pulmonary edema. Electronically Signed: Jaziel Hamm MD at 12:01 EST ,
--- NOTE | 2023-08-21 10:32 | EKG12_ITS ---
Test Reason : DYSRHYTHMIA Blood Pressure : / mmHG Vent. Rate : 062 BPM Atrial Rate : 000 BPM P-R Int : 000 ms QRS Dur : 096 ms QT Int : 434 ms P-R-T Axes : 000 055 132 degrees QTc Int : 440 ms Atrial fibrillation Nonspecific ST and T wave abnormality Abnormal ECG Confirmed by RUPERT SINGH, BLANKA ([id number]), business editor VALERIY SOTO ([id number]) on 08/22/2023 7:17:01 AM Referred By: ABNER Confirmed By:BLANKA EMERY MD
[2023-08-21 10:51] LABS: Absolute Lymphocyte Count 1.23 X10^3/uL (0.83-4.51); Absolute Neutrophil Count 6.2 X10^3/uL (2.0-7.7); Basophil# 0.05 X10^3/uL; Basophil% 0.6 % (0-1); Eosinophil# 0.41 X10^3/uL; Eosinophils% 4.6 % (0-5); Hematocrit 33.5 % (40-54); Hemoglobin 11.1 g/dL (13.0-16.5); Lymphocyte # 1.23 X10^3/ul (0.83-4.51); Lymphocyte % 13.9 % (19-41); Mean Corp Hgb Conc 33.1 g/dL (32-36); Mean Corpuscular Hgb 32.3 pg (27.0-32.0); Mean Corpuscular Volume 97.4 fL (80-94); Mean Platelet Vol. 10.1 fl (6.2-12.0); Monocyte# 0.94 X10^3/uL; Monocyte% 10.6 % (0-10); NRBC Flagged by Analyzer 0 % (0-5); Neutrophil # 6.16 X10^3/uL (2.7-7.7); Neutrophil % 69.5 % (47-70); Platelet Count 184 K/mm3 (150-450); RBC Distribution Width CV 15.1 % (11.6-14.6); RBC Distribution Width SD 54.1 fl (35.1-43.9); Red Blood Count 3.44 M/mm3 (4.6-6.2); White Blood Count 8.9 K/mm3 (4.4-11.0)
[2023-08-21 11:09] LABS: International Normalized Ratio 3.4; Prothrombin Time (Protime)PT. 34.8 SECONDS (11.7-14.9)
[2023-08-21 11:15] LABS: Anion Gap 4 (5-15); BNP,B-Type NATRIURETIC PEPTIDE 243.1 pg/mL (0-100); BUN 26 mg/dL (7-18); BUN/Creat Ratio 22.4 RATIO (10-20); Calcium,Total 8.4 mg/dL (8.5-10.1); Chloride 101 mmol/L (98-107); Creatinine, Serum 1.16 mg/dL (0.70-1.30); EST Glomerular Filtration Rate 64 mL/min (>60); Est Glom Filt Rate - Afr Amer 78 mL/min (>60); Glucose 99 mg/dL (74-106); Potassium 4.6 mmol/L (3.5-5.1); Sodium Level 133 mmol/L (136-145); Troponin-I HS 28 pg/mL (3.0-78.0)
--- NOTE | 2023-08-21 12:09 | EX.ED.DYSGE1 ---
HPI History of Present Illness Chief Complaint: General Illness Informant: patient Narrative Narrative: Patient presents via EMS secondary to weakness and shortness of breath. Patient has a history of dementia. His is currently hospitalized with a leg fracture. Patient tells me that his [id number] has been staying with him. He reports generalized weakness and shortness of breath. He denies any pain, nausea, or vomiting. He does admit he has not been eating and drinking much. He is on Coumadin secondary to a history of atrial fibrillation. At the time of my exam he is on 4 L nasal cannula. I advised by nursing staff that his O2 sat was 78% on room air and only 85% on 2 L. Patient was seen in the emergency room last week. He had some vascular congestion and his torsemide was increased for a few days. When I asked the patient if this helped his symptoms he states I do not know, I assume so. [facility] Medical History Anxiety and depression Bradycardia Chronic fatigue Congestive heart failure (CHF) Dementia Dyspepsia Dyspnea on exertion H/O measles H/O sick sinus syndrome History of pneumonia as a child Hyperlipidemia Hypertension Inguinal hernia (~2011) Interstitial lung disease Mitral and aortic heart valve diseases, unspecified Mitral valve regurgitation Panic attacks Permanent atrial fibrillation Posterior vitreous detachment of both eyes Presence of cardiac pacemaker Shoulder impingement syndrome Home Medications carvedilol 3.125 mg tablet 3.125 mg PO BID 08/27/17 [History Last Taken Unknown] citalopram 10 mg/5 mL oral solution 10 mg PO QDAY 08/27/17 [History Last Taken Unknown] fluticasone propionate 50 mcg/actuation nasal spray,suspension (Flonase Allergy Relief) 50 mcg intranasal ONCE 08/27/17 [History Last Taken Unknown] warfarin 2 mg tablet 2.5 mg PO QDAY 08/27/17 [History Last Taken Unknown] atorvastatin 20 mg tablet (Lipitor) 20 mg PO DAILY 04/22/22 [History Last Taken Unknown] pantoprazole 20 mg tablet,delayed release (Protonix) 40 mg PO DAILY 04/22/22 [History Last Taken Unknown] paroxetine HCl 10 mg tablet (Paxil) 10 mg PO DAILY 04/22/22 [History Last Taken Unknown] potassium chloride 10 mEq capsule,extended release 10 meq PO DAILY 04/22/22 [History Last Taken Unknown] sildenafil 25 mg tablet (Viagra) 25 mg PO DAILY 04/22/22 [History Last Taken Unknown] torsemide 20 mg tablet 20 mg PO DAILY 04/22/22 [History Last Taken Unknown] Allergy/AdvReac Type Severity Reaction Status Date / Time No Known Allergies Allergy Verified 08/21/23 10:09 Family History Other CAD (coronary artery disease) CVA (cerebral vascular accident) Heart disease Surgical History History of back surgery (~2006) History of inguinal hernia repair Mitral valve replaced (~1989) Social History Smoking Status: Never smoker ROS ROS ED Constitutional Constitutional ED: Denies chills or fever(s) Eyes Eyes: Denies change in vision or discharge from eye(s) ENT ENT ED: Denies discharge from eye(s), rhinorrhea or sore throat Cardiovascular Cardiovascular: Denies chest pain or palpitations Respiratory/Chest Respiratory/Chest: Reports dyspnea; Denies cough Gastrointestinal Gastrointestinal: Denies abdominal pain, nausea or vomiting Genitourinary Genitourinary ED: Denies dysuria Musculoskeletal Musculoskeletal: Denies back pain or extremity pain Integumentary Denies Abrasions or rash Neurologic Neurologic: Reports weakness; Denies headache(s) Psychiatric Psychiatric: Denies anxiety or depression Allergic/Immunologic Allergic/Immunologic ED: Denies lip swelling or urticaria EXAM Physical Exam Const Vital Signs: 08/21/23 10:04 08/21/23 10:08 08/21/23 10:08 Temperature 98.3 F 98.3 F Temperature Source Oral Oral Pulse Rate 69 68 Respiratory Rate 24 H Respiratory Pattern Blood Pressure 139/87 H 139/87 H Blood Pressure Mean 104 104 Pulse Ox 78 78 85 Oxygen Delivery Method Room Air Room Air Nasal Cannula Oxygen Flow Rate (L/min) 2 08/21/23 10:10 Temperature Temperature Source Pulse Rate Respiratory Rate Respiratory Pattern Tachypnea Blood Pressure Blood Pressure Mean Pulse Ox Oxygen Delivery Method Oxygen Flow Rate (L/min) Positive cachectic General Appearance ED: cachectic Nutritional Appearance: cachectic Eyes EOMs intact bilaterally Chest Wall inspection of chest normal and palpation of chest normal Resp Resp Narrative: Mild tachypnea. No rhonchi or wheezing noted. Cardio regular rate and regular rhythm GI non-tender Palpation: soft Extremity normal to inspection Extremity Narrative: No significant lower extremity edema. Neuro Neuro Narrative: Patient alert answers questions appropriately. No focal neurologic deficit. Skin no rashes or lesions noted MDM MDM MDM Narrative Medical decision making narrative: Patient placed on monitoring manager. IV line initiated. EKG obtained to evaluate for cardiac arrhythmia/ischemia. Chest x-ray obtained to evaluate for acute lung pathology, cardiac size, or mediastinal abnormality. Labwork obtained to evaluate for leukocytosis, anemia, and electrolyte derangement. History & Record Review Discussion w/independent historian: Patient Additional record(s) reviewed:: Prior ED visit and Prior labs Lab Data Attestation: I reviewed the patient's lab results. Labs: Laboratory Results - last 24 hr 08/21/23 10:05 WBC 8.9 RBC 3.44 L Hgb 11.1 L Hct 33.5 L MCV 97.4 H MCH 32.3 H MCHC 33.1 RDW Std Deviation 54.1 H RDW Coeff of Darnell 15.1 H Plt Count 184 MPV 10.1 Immature Gran % (Auto) 0.800 Neut % (Auto) 69.5 Lymph % (Auto) 13.9 L [place] % (Auto) 10.6 H Eos % (Auto) 4.6 Baso % (Auto) 0.6 Absolute Neuts (auto) 6.2 Absolute Lymphs (auto) 1.23 Nucleated RBC % 0 PT 34.8 H INR 3.4 Sodium 133 L Potassium 4.6 Chloride 101 Carbon Dioxide 28.0 Anion Gap 4 L BUN 26 H Creatinine 1.16 Estim Creat Clear Calc 55.00 Est GFR (MDRD) Af Amer 78 Est GFR (MDRD) Non-Af 64 BUN/Creatinine Ratio 22.4 H Glucose 99 Calcium 8.4 L Troponin I High Sens 28 B-Natriuretic Peptide 243.1 H Radiography Chest X-Ray - ED: 1 View, Read by ED Physician and CHF Diagnostic Testing: Clinical Impression(s) from Imaging Studies Chest X-Ray 08/21/23 10:32 IMPRESSION: Diffuse bilateral airspace disease. This most likely secondary to CHF and pulmonary edema. Electronically Signed: Jaziel Hamm MD at 12:01 EST , EKG Initial EKG: Attestation: I personally reviewed and interpreted this EKG as follows: Interpretation: Atrial Fibrillation (Atrial fibrillation with a ventricular rate of 62 bpm. No obvious ischemia.) Treatment and Re-Evaluation :: CBC reveals a white count of 8.9 with a hemoglobin of 11.1. Differential unremarkable. INR is 3.4. Chemistry studies reveal a BUN of 26 and creatinine 1.16. Sodium is slightly low at 133. BNP is 243. Troponin is 28. EKG is A-fib with no evidence of acute ischemia. Chest x-ray per my interpretation reveals significant CHF with bilateral lung changes. Patient has been stable on 4 L nasal cannula. He is normally not on oxygen. He will be given 40 mg of IV Lasix and I will speak with hospitalist regarding admission. Discharge Plan Triage Chief Complaint: General Illness ED Provider: Darlene Malik Dx/Rx/DC Orders Clinical Impression: CHF (congestive heart failure), Respiratory failure Prescriptions: No Action fluticasone propionate [Flonase Allergy Relief] 50 mcg/actuation spray,suspension 50 mcg INTRANASAL ONCE citalopram 10 mg/5 mL solution 10 mg PO QDAY warfarin 2 mg tablet 2.5 mg PO QDAY carvedilol 3.125 mg tablet 3.125 mg PO BID potassium chloride 10 mEq Capsule, Extended Release 10 meq PO DAILY paroxetine HCl [Paxil] 10 mg Tablet 10 mg PO DAILY atorvastatin [Lipitor] 20 mg Tablet 20 mg PO DAILY torsemide 20 mg Tablet 20 mg PO DAILY sildenafil [Viagra] 25 mg Tablet 25 mg PO DAILY pantoprazole [Protonix] 20 mg Tablet,Delayed Release (Dr/Ec) 40 mg PO DAILY Primary Care Provider: Alejandra Lee Referrals: Alejandra Lee MD [Primary Care Provider] - Disposition Disposition: Acute Care Hospital [facility]
[2023-08-21] MEDS: Furosemide 40 MG/4 ML Vial IV ×2 (12:23→21:30)
--- NOTE | 2023-08-21 13:32 | PCM.HP.STD ---
HPI - General General Date of Admission: 08/21/23 Date of Service: 08/21/23 Chief Complaint: Fatigue, malaise, dyspnea, hypoxia. HPI Narrative The patient is a 77 y/o M w/ PMHx: CKD stage II per GFR trending, Allergic rhinitis, GERD, Anxiety and Depression/Panic attacks, Chronic bradycardia, HTN, HLD, Hx Sick Sinus Syndrome s/p pacemaker status, Dementia unclear type with unclear behavioral disturbance history, Chronic AF, Valvular Heart Disease, Interstitial lung disease/Pulmonary fibrosis, Chronic anemia who presents to the [facility] ED on 08/21/23 with history of increased fatigue, weakness and dyspnea worse with exertion with his recently hospitalized secondary to a fall with a fracture with his [id number] staying and helping assist in his care with unfortunate decreased intake in addition with concern for volume overload prompting family to bring him in for ED evaluation. He does report a cough but it is dry and he notes having this somewhat chronically with his underlying interstitial lung disease. He denies any significant weight gain but he does not weigh himself he notes and denies marked orthopnea. Patient denies any recent significant productive cough, fever, chills, nausea, emesis. In the ED included T98.3, heart 69, BP 139/87, respiratory rate 24, initially 78% on room air with improvement to 85% on 2 L nasal cannula-->mid-90s on 4L NC, CBC with WBC 8.9, hemoglobin 0.1, MCV 97.4, platelet 184 without marked shift, coags with INR 3.4, PT 34.8, BMP with sodium 133, BUN/creatinine 26/1.16, troponin 28, BNP 243.1, rapid COVID/flu/RSV PCR negative, chest x-ray with diffuse bilateral airspace disease consistent with overload/pulmonary edema, EKG with atrial fibrillation rate controlled with no acute evidence of ischemia. In the ED patient administered Lasix 40 mg IV x 1. [facility] Medical History Anxiety and depression Bradycardia Chronic fatigue Congestive heart failure (CHF) Dementia Dyspepsia Dyspnea on exertion H/O measles H/O sick sinus syndrome History of pneumonia as a child Hyperlipidemia Hypertension Inguinal hernia (~2011) Interstitial lung disease Mitral and aortic heart valve diseases, unspecified Mitral valve regurgitation Panic attacks Permanent atrial fibrillation Posterior vitreous detachment of both eyes Presence of cardiac pacemaker Shoulder impingement syndrome Home Medications carvedilol 3.125 mg tablet 3.125 mg PO BID 08/27/17 [History Last Taken Unknown] citalopram 10 mg/5 mL oral solution 10 mg PO QDAY 08/27/17 [History Last Taken Unknown] fluticasone propionate 50 mcg/actuation nasal spray,suspension (Flonase Allergy Relief) 50 mcg intranasal ONCE 08/27/17 [History Last Taken Unknown] warfarin 2 mg tablet 2.5 mg PO QDAY 08/27/17 [History Last Taken Unknown] atorvastatin 20 mg tablet (Lipitor) 20 mg PO DAILY 04/22/22 [History Last Taken Unknown] pantoprazole 20 mg tablet,delayed release (Protonix) 40 mg PO DAILY 04/22/22 [History Last Taken Unknown] paroxetine HCl 10 mg tablet (Paxil) 10 mg PO DAILY 04/22/22 [History Last Taken Unknown] potassium chloride 10 mEq capsule,extended release 10 meq PO DAILY 04/22/22 [History Last Taken Unknown] sildenafil 25 mg tablet (Viagra) 25 mg PO DAILY 04/22/22 [History Last Taken Unknown] torsemide 20 mg tablet 20 mg PO DAILY 04/22/22 [History Last Taken Unknown] Allergy/AdvReac Type Severity Reaction Status Date / Time No Known Allergies Allergy Verified 08/21/23 10:09 Family History Mother CAD (coronary artery disease) CVA (cerebral vascular accident) Heart disease Hypertension Father CAD (coronary artery disease) CVA (cerebral vascular accident) Heart disease Hypertension Surgical History (Updated 08/21/23 @ 13:[address] Patti Benton MD) History of back surgery (~2006) History of inguinal hernia repair Mitral valve replaced (~1989) S/P cardiac pacemaker procedure Social History (Updated 08/21/23 @ 13:[address] Patti Benton MD) household members: spouse Smoking Status: Never smoker alcohol intake: never substance use type: does not use ROS ROS Narrative Admission Review of Systems: CONSTITUTIONAL: No weight loss, fever, chills, + weakness or fatigue. HEENT: Eyes: No visual loss, blurred vision, double vision or yellow sclerae. Ears, Nose, Throat: No hearing loss, sneezing, congestion, runny nose or sore throat. SKIN: No rash or itching, lesions, wounds. CARDIOVASCULAR: + Exertional dyspnea. No chest pain, chest pressure or chest discomfort, palpitations, edema, orthopnea, syncopal events. RESPIRATORY: + Dyspnea, worse with exertion, dry cough primarily chronic. No productive sputum, wheezing, hemoptysis. GASTROINTESTINAL: No anorexia, nausea, vomiting or diarrhea, abdominal pain, melena, BRBPR. GENITOURINARY: No dysuria, frequency, urgency or retention. NEUROLOGICAL: No headache, dizziness, syncope, paralysis, ataxia, numbness or tingling in the extremities, focal weakness, change in bowel or bladder control, seizure. MUSCULOSKELETAL: + muscle, back pain, joint pain or stiffness. HEMATOLOGIC: + anemia with history of easy bleeding/bruising. LYMPHATICS: No enlarged nodes. No history of splenectomy. PSYCHIATRIC: + History of anxiety and depression. ENDOCRINOLOGIC: No reports of sweating, cold or heat intolerance. No polyuria or polydipsia. ALLERGIES: + History of allergic rhinitis. Vital Signs Vital Signs Vital Signs: 08/21/23 10:04 08/21/23 10:08 08/21/23 10:08 Temperature 98.3 F 98.3 F Temperature Source Oral Oral Pulse Rate 69 68 Respiratory Rate 24 H Respiratory Pattern Blood Pressure 139/87 H 139/87 H Blood Pressure Mean 104 104 Pulse Ox 78 78 85 Oxygen Delivery Method Room Air Room Air Nasal Cannula Oxygen Flow Rate (L/min) 2 08/21/23 10:10 Temperature Temperature Source Pulse Rate Respiratory Rate Respiratory Pattern Tachypnea Blood Pressure Blood Pressure Mean Pulse Ox Oxygen Delivery Method Oxygen Flow Rate (L/min) Weight Weight: 175 lb Body Mass Index (BMI) 24.4 Physical Exam Narrative Physical Examination: General: Awake, alert, oriented to self, place, month, year and able to carry on an appropriate conversation but does have underlying known dementia, cooperative, seated upright in bed in no apparent distress. Skin: Normal color, normal turgor, no icterus, no cyanosis except for occasional staged ecchymoses. HEENT: AT/NC, EOMI, PERRLA, MMM, no carotid bruits, + JVD noted. Lungs: Diminished, greater bases, mildly increased respiratory rate but no marked distress, mild rales at bases, no rhonchi or wheezing. Heart: Appropriate rate, regular; no gallop, rub audible, + SM. Abdomen: Soft, NTTP, ND, hyperactive BS, no HSM. Extremities: No cyanosis, clubbing, or edema. Neurological: Patient awake, alert, oriented as noted, cognitive function suspect primarily near baseline intact and as noted appropriately answering of questions and fully oriented but does have underlying dementia history, pupils equally reactive to light and accommodation, cranial nerves grossly normal, moving all 4 extremities, no focal deficits, strength moderately to severely globally decreased secondary to acute presentation and underlying comorbidities. Psychiatric: Affect appears mildly flat, fatigued, no acute evidence of depressive or anxiety feelings. Results Lab / Micro Data 08/21/23 10:05 08/21/23 10:05 Labs: Laboratory Results - last 24 hr 08/21/23 10:05: WBC 8.9, RBC 3.44 L, Hgb 11.1 L, Hct 33.5 L, MCV 97.4 H, MCH 32.3 H, MCHC 33.1, RDW Std Deviation 54.1 H, RDW Coeff of Darnell 15.1 H, Plt Count 184, MPV 10.1, Immature Gran % (Auto) 0.800, Neut % (Auto) 69.5, Lymph % (Auto) 13.9 L, [place] % (Auto) 10.6 H, Eos % (Auto) 4.6, Baso % (Auto) 0.6, Absolute Neuts (auto) 6.2, Absolute Lymphs (auto) 1.23, Nucleated RBC % 0, PT 34.8 H, INR 3.4, Sodium 133 L, Potassium 4.6, Chloride 101, Carbon Dioxide 28.0, Anion Gap 4 L, BUN 26 H, Creatinine 1.16, Estim Creat Clear Calc 55.00, Est GFR (MDRD) Af Amer 78, Est GFR (MDRD) Non-Af 64, BUN/Creatinine Ratio 22.4 H, Glucose 99, Calcium 8.4 L, Troponin I High Sens 28, B-Natriuretic Peptide 243.1 H Micro: Microbiology 08/21/23 11:31 Mucosa - Nose SARS-CoV-2, Influenza & RSV (PCR) - Final Imagaing Radiology Impression Chest X-Ray 08/21/23 10:32 IMPRESSION: Diffuse bilateral airspace disease. This most likely secondary to CHF and pulmonary edema. Electronically Signed: Jaziel Hamm MD at 12:01 EST , Assessment & Plan Assessment/Plan (1) CHF (congestive heart failure): PLAN: Plan The patient is a 77 y/o M w/ PMHx: CKD stage II per GFR trending, Allergic rhinitis, GERD, Anxiety and Depression/Panic attacks, Chronic bradycardia, HTN, HLD, Hx Sick Sinus Syndrome s/p pacemaker status, Dementia unclear type with unclear behavioral disturbance history, Chronic AF, Valvular Heart Disease, Interstitial lung disease/Pulmonary fibrosis, Chronic anemia who presents to the [facility] ED on 08/21/23 with history of increased fatigue, weakness and dyspnea worse with exertion with his recently hospitalized secondary to a fall with a fracture with his [id number] staying and helping assist in his care with unfortunate decreased intake in addition with concern for volume overload prompting family to bring him in for ED evaluation. #1. Acute Hypoxia (not consistent with Acute Respiratory Failure) secondary to Acute Decompensated CHF, Unclear type: CXR obtained in the ED w/ congestion and evidence of overload. Patient administered IV lasix in the ED, will admit to PCU, maintain on cardiac telemetry, obtain cardiac enzyme series, obtain serial EKGs, continue IV lasix diuresis, monitor I/Os, maintain on intake restriction, continue medical therapy, obtain TSH and magnesium level. No recent echocardiogram noted in the system as the main stay of his care has been at [facility], echocardiogram requested. PT/OT/CM consulted for discharge planning. #2. Dementia unclear type with unclear behavioral disturbance history: Complicates presentation, per current list on a regimen but clarifying, will maintain on fall and aspiration precautions, PT/OT/case management consulted for discharge planning. #3. Chronic macrocytic anemia: Admission hemoglobin 11.1, MCV 97.4, baseline hemoglobin most recently 12.3 08/16/2023 and prior to this 13, will continue to trend CBC. #4. Chronic Kidney Disease Stage II per GFR trending: Admission BUN/Cr 26/1.16, baseline renal function 1.0-1.1, baseline GFR appears primarily 76-84 with current presentation 78, repeat BMP in AM. #5. History sick sinus syndrome: s/p pacemaker status. #6. Valvular heart disease: History of MV replacement unclear specific type, no recent echocardiogram in the system, requested as noted. #7. Hypertension: Continue home regimen including Coreg, IV Lasix as noted above, PRN hydralazine. #8. Hyperlipidemia: Continue home statin regimen. AM FLP. #9. Anxiety and depression/panic attacks: Clarifying patient home regimen as both paroxetine and citalopram are listed, suspect he is only on 1 of these agents but clarifying. #10. PAF: We will continue patient home Coreg and Coumadin with INR trending, INR therapeutic upon presentation 3.4. #11. Allergic rhinitis: We will continue patient on fluticasone regimen. #12. GERD: We will continue patient on PPI #13. DVT prophylaxis: We will continue patient on Coumadin with INR trending. #14. CODE status: Patient ASIA is his and living will is currently in place. Discussed CODE status at length including difference between FULL code, DNR-CCA and DNR-CC status. Following discussions about the differences in these status, requested DNR-CCA, no intubation status. Advanced Care Planning Face to Face Time: 16 minutes. Charges/Coding Visit Charges Inpatient E&M: 29014 Init Hosp L3 Procedures Hospitalists Procedures: 04578 Advncd Care Plan 30 Min
--- NOTE | 2023-08-21 13:41 | NURSING ---
PCU WHITE CHF, RESP FAILURE
[2023-08-21 14:07] LABS: Magnesium 2.4 mg/dL (1.6-2.6)
--- OUTSIDE RECORDS SUMMARY | 2023-08-21 17:04 | XMS RPT_ITS | CCD ---
Author Name Unknown Address [address] [place] [address] Organization [facility] Care Team Providers Care Extermination Inspector Name Role Phone Dossi DC, Laura B Unavailable Mariela Lovelace Unavailable Unavailable HASMUKH YOUSIFSHONA J Unavailable Rani vailable HASMUKH YOUSIF, SHONA J Unavailable Rani vailable HASMUKH YOUSIF, SHONA J Unavailable Rani vailable HASMUKH YOUSIF, SHONA J Unavailable Rani vailable HASMUKH YOUSIF, SHONA J Unavailable Rani vailable HASMUKH YOUSIF, SHONA J Unavailable Rani vailable Dossi DC, Laura B Unavailable Mariela Lovelace Unavailable Unavailable SANDYKIANA Attending Unavailable SANDYKIANA Admitting Unavailable SANDYKIANA Primary Care Unavailable SANDYKIANA Primary Care Unavailable SANDYKIANA FLANAGAN Attending Unavailable SANDYKIANA Admitting Unavailable SANDYKIANA Attending Unavailable SANDYKIANA Admitting Unavailable SANDYKIANA Primary Care Unavailable ARSLAN SOLIS Admitting Unavailable SOLIS ARSLAN C Primary Care Unavailable ARSLAN SOLIS Attending Unavailable SANDYKIANA Attending Unavailable SANDYKIANA Admitting Unavailable SANDYKIANA Primary Care Unavailable Jesus SINGH, Macey Primary Care Provider [phone] Procedures Date Procedure Procedure Detail Performing Clinician Start: 03-06-2023 End: 03-06-2023 Brncdilat rspse spmtry pre&post-brncdilat admn Nancy Sales MD Work Phone: Start: 02-04-2023 Prothrombin time [facility] Provider Start: 01-21-2023 Echocardiography MACEY STACK Start: 12-12-2022 PACEMAKER REMOTE CHECK Linus barahona MD Work Phone: Start: 10-21-2022 Ct thorax w/o contrast material Geovanny Ray MD Work Phone: Start: 08-21-2022 PACEMAKER CLINIC CHECK Linus barahona MD Work Phone: Start: 08-21-2022 Ecg routine ecg w/least 12 lds w/i&r Linus Madrid MD Work Phone: Start: 08-08-2022 Prothrombin time [facility] Provider Start: 05-28-2022 Radiologic exam chest 2 views Neeta Bowman APRN.CNP Work Phone: Start: 05-14-2022 Radex spine lumbosacral 2/3 views Natalia Gaffney MD Work Phone: Start: 03-21-2022 Pulmonary stress testing Sameep Mónica Mosquera Work Phone: Start: 03-20-2022 PACEMAKER REMOTE CHECK Linus barahona MD Work Phone: Start: 03-07-2022 Ct abdomen & pelvis w/contrast material Natalia Gaffney MD Work Phone: Start: 02-22-2022 Radiologic exam esophagus single contrast study Natalia Gaffney MD Work Phone: Start: 12-04-2021 Ct thorax w/o contrast material Macey Stack MD Work Phone: Start: 11-19-2021 Plethysmography lung volumes w/wo airway resist Macey Stack MD Work Phone: Start: 05-21-2017 End: 05-21-2017 Chiropractic manipulative tx spinal 3-4 regions Laura Virk DC Work Phone: Start: 03-03-2017 End: 03-03-2017 Chiropractic manipulative tx spinal 3-4 regions Laura Virk DC Work Phone: Start: 03-03-2017 End: 03-03-2017 [...] Chiropractic manipulative tx spinal 3-4 regions Laura Cruzsi DC Work Phone: Start: 01-14-2017 End: 01-14-2017 Documentation of current medications Laura Virk DC Start: 01-13-2017 End: 01-14-2017 Chiropractic manipulation Laura Stringer Dossi DC Work Phone: Start: 01-13-2017 End: 01-13-2017 Chiropractic manipulation Laura Stringer Dossi DC Work Phone: Start: 01-09-2017 End: 01-09-2017 Radex spine lumbosacral minimum 4 views Laura Cruzsi DC Work Phone: Start: 01-09-2017 End: 01-09-2017 Documentation of current medications Mariela Lovelace Start: 01-09-2017 End: 01-09-2017 X-ray exam of lower spine Laura Cruzsi DC Work Phone: Start: 01-23-2012 End: 01-23-2012 [...] of patient HEALTH MAINTENANCE EXAM Laura Virk DC Start: 08-23-2011 End: 09-06-2011 Lipid 1996 panel [...] General examination of patient HEALTH MAINTENANCE EXAM Mariela Lovelace Start: 08-23-2011 End: 09-06-2011 Lipid panel [AGGREGATE] Sandrine cK MD Start: 08-23-2011 End: 09-06-2011 PSA Sandrine [...] Author Start: 03-12-2026 DIABETES SCREEN DIABETES SCREEN [facility] Start: 03-12-2026 Diabetes Screening Diabetes Screening [facility] Start: 01-31-2026 DIABETES SCREEN DIABETES SCREEN [facility] Start: 01-14-2026 DIABETES SCREEN DIABETES SCREEN [facility] Start: 03-07-2025 DIABETES SCREEN DIABETES SCREEN [facility] Start: 03-04-2025 DIABETES SCREEN DIABETES SCREEN [facility] Start: 01-19-2025 DIABETES SCREEN DIABETES SCREEN [facility] Start: 12-17-2024 DIABETES SCREEN DIABETES SCREEN [facility] Start: 07-09-2024 DIABETES SCREEN DIABETES SCREEN [facility] Start: 05-20-2024 Annual PCP Team Chronic Disease Visit Annual PCP Team Chronic Disease Visit [facility] Start: 05-20-2024 BP Controlled (<130/80) BP Controlled (<130/80) [facility] Start: 04-29-2024 BP Controlled (<130/80) BP Controlled (<130/80) [facility] Start: 03-12-2024 ANNUAL PCP TEAM CHRONIC DISEASE VISIT ANNUAL PCP TEAM CHRONIC DISEASE VISIT [facility] Start: 03-12-2024 BP CONTROLLED (<130/80) BP CONTROLLED (<130/80) [facility] Start: 02-01-2024 ANNUAL PCP TEAM CHRONIC DISEASE VISIT ANNUAL PCP TEAM CHRONIC DISEASE VISIT [facility] Start: 02-01-2024 BP CONTROLLED (<130/80) BP CONTROLLED (<130/80) [facility] Start: 01-14-2024 ANNUAL PCP TEAM CHRONIC DISEASE VISIT ANNUAL PCP TEAM CHRONIC DISEASE VISIT [facility] Start: 01-14-2024 BP CONTROLLED (<130/80) BP CONTROLLED (<130/80) [facility] Start: 11-23-2023 ANNUAL PCP TEAM CHRONIC DISEASE VISIT ANNUAL PCP TEAM CHRONIC DISEASE VISIT [facility] Start: 10-15-2023 ANNUAL PCP TEAM CHRONIC DISEASE VISIT ANNUAL PCP TEAM CHRONIC DISEASE VISIT [facility] Start: 08-22-2023 ANNUAL PCP TEAM CHRONIC DISEASE VISIT ANNUAL PCP TEAM CHRONIC DISEASE VISIT [facility] Start: 05-27-2023 ANNUAL PCP TEAM CHRONIC DISEASE VISIT ANNUAL PCP TEAM CHRONIC DISEASE VISIT [facility] Start: 05-13-2023 Cystourethroscopy CYSTO.PANENDO Procedures Routine Hematuria, unspecified type Expected: 05/13/2023 (Approximate) [facility] Work Phone: Immunizations Immunization Date Immunization Notes Care Provider Stanley willis 05-12-2023 influenza, high dose seasonal, preservative-free Husam Chilel [facility] 05-12-2023 respiratory syncytia l virus (RSV) vaccine, bivalent (ABRYSVO) Husam Chilel [facility] 12-25-2022 zoster vaccine recombinant Flavia Whitmore [facility] 10-15-2022 zoster vaccine recombinant Maryan Berumen [facility] 07-18-2022 COVID-19 booster vaccine, age 12+ yr, bivalent (PFIZER-BIONTECH) Deisy Dayday [facility] 07-18-2022 influenza, high-dose , quadrivalent vaccine (FLUZONE HIGH DOSE QUADRIVALENT) Deisy Dayday [facility] 07-18-2022 influenza virus vaccine, unspecified formulation Neeta Bowman APRN.CNP Work Phone: [facility] 05-09-2021 COVID-19 vaccine, ag e 12+ yr (PFIZER-BIONTECH - PURPLE TOP) Jose Ramon Contreras MD Work Phone: [facility] 05-09-2021 influenza, high-dose , quadrivalent vaccine (FLUZONE HIGH DOSE QUADRIVALENT) Jose Ramon Contreras MD Work Phone: [facility] 10-04-2020 COVID-19 vaccine, ag e 12+ yr (PFIZER-BIONTECH - PURPLE TOP) Jose Ramon Contreras MD Work Phone: [facility] 09-08-2020 COVID-19 vaccine, ag e 12+ yr (PFIZER-BIONTECH - PURPLE TOP) Jose Ramon Contreras MD Work Phone: [facility] 07-05-2020 tetanus and diphther ia toxoids, adsorbed, preservative free, for adult use (5 Lf of tetanus toxoid and 2 Lf of diphtheria toxoid) Jose Ramon Contreras MD Work Phone: [facility] 05-19-2020 influenza, high-dose , quadrivalent vaccine (FLUZONE HIGH DOSE QUADRIVALENT) Jose Ramon Contreras MD Work Phone: [facility] 04-28-2019 influenza, high dose seasonal, preservative-free Jose Ramon Contreras MD Work Phone: [facility] Work Phone: 03-11-2019 influenza virus vaccine, unspecified formulation Jose Ramon Contreras MD Work Phone: [facility] Work Phone: 04-23-2018 influenza, high dose seasonal, preservative-free Jose Ramon Contreras MD Work Phone: [facility] Work Phone: 04-07-2017 influenza, high dose seasonal, preservative-free Jose Ramon Contreras MD Work Phone: [facility] Work Phone: 03-30-2016 influenza, high dose seasonal, preservative-free Jose Ramon Contreras MD Work Phone: [facility] 05-11-2015 influenza, high dose seasonal, preservative-free Jose Ramon Contreras MD Work Phone: [facility] Work Phone: 05-03-2015 pneumococcal conjuga te vaccine, 13 valent Jose Ramon Contreras MD Work Phone: [facility] Work Phone: 05-27-2014 influenza, seasonal, injectable Jose Ramon Contreras MD Work Phone: [facility] Work Phone: 05-17-2013 influenza virus vaccine, unspecified formulation Jose Ramon Contreras MD Work Phone: [facility] 05-17-2013 zoster vaccine, live Jose Ramon Contreras MD Work Phone: [facility] 07-27-2010 pneumococcal polysaccharide vaccine, 23 valent Laura Dossi DC [facility] Work Phone: 07-27-2010 pneumococcal polysaccharide vaccine, 23 valent Mariela Lovelace [facility] Work Phone: 05-07-2010 influenza, seasonal, injectable Laura Dossi DC [facility] Work Phone: 05-07-2010 influenza, seasonal, injectable Mariela Lovelace [facility] Work Phone: Payers Date Payer Category Payer Unknown [id number] 2019 Unknown [id number] 2019 Unknown [facility] [place] MEDICARE SUPPLEMENT [id number] 2019-Present [phone] [id number] [address] Indemnity [id number] 2019 Unknown [id number] 2011 Medicare [id number] 2011 Medicare MEDICARE MEDICAR E A AND B [id number] 2011-Present [phone] [place] [address] Medicare [id number] 2011 Medicare [id number] 1943 Unknown [id number] 1 1943 Unknown [id number] 1 1943 Unknown [id number] 1 1943 Unknown [id number] 1 1943 Unknown [id number] 1 Social History Date Type Detail Facility Start: 11-22-2011 End: 05-20-2012 Tobacco smoking status NHIS Never smoked tobacco [facility] Start: 11-22-2011 End: 05-20-2012 Tobacco use and exposure Smokeless tobacco non-user [facility] Start: 10-29-2021 End: 06-12-2023 Alcohol intake Current non-drinker of alcohol (finding) [facility] Start: 06-19-2020 End: 08-15-2022 History SDOH Alcohol Frequency 1 [facility] Start: 07-01-2020 End: 08-15-2022 History SDOH Alcohol Std Drinks 98 [facility] Start: 07-01-2020 End: 08-15-2022 History SDOH Social Connections Phone 4 [facility] Start: 02-08-2020 End: 08-15-2022 History SDOH Social Connections Membership 2 [facility] Start: 02-08-2020 End: 08-15-2022 History SDOH Social Connections Living 3 [facility] Start: 02-08-2020 Education 18 [facility] Start: 1945 Sex Assigned At Male [facility] Start: 10-19-2021 End: 05-27-2022 Exposure to SARS-CoV-2 (event) Not sure [facility] Work Phone: Start: 11-30-2021 End: 03-22-2022 Exposure to SARS-CoV-2 (event) Unable to assess [facility] Start: 08-15-2022 History SDOH Alcohol Std Drinks 0 [facility] Start: 1945 Sex Assigned At Choose not to disclose [facility] Start: 08-15-2022 End: 01-02-2023 History of Social function [facility] Start: 08-15-2022 End: 01-02-2023 Social connection and isolation panel [facility] How often do you get together with friends or relatives? Patient refused [facility] Do you belong to any clubs or organizations such as jewish groups, unions, fraternal or athletic groups, or school groups? No [facility] Are you now , , , , never or living with a partner? [facility] How often to you hav e a drink containing alcohol? Never [facility] How hard is it for y ou to pay for the very basics like food, housing, medical care, and heating Not very hard [facility] Do you feel stress - tense, restless, nervous, or anxious, or unable to sleep at night because your mind is troubled all the time - these days [OSQ] To some extent [facility] (I/We) worried wheth er (my/our) food would run out before (I/we) got money to buy more. Sometimes true [facility] Start: 02-08-2020 Gender identity Identifies as male gender (finding) [facility] Start: 02-08-2020 Sexual orientation Heterosexual (finding) [facility] Medical Equipment Procedure Code Equipment Code Equipment Origin al Text Equipment Identifier Dates [id number] Implant - [id number] Start: 06-10-2012 Goals Date Patient Goal Desired Activity /State Personal health goal Clinical Notes 05-18-2020 to 08-16-2023 Telephone Encounter - Mireya Madsen [facility] - 07/16/2023 1:35 PM ESTTelephone Encounter - Hilda Nicole LPN - 06/23/2023 2:42 PM ESTTelephone Encounter - Flavia Whitmore [facility] - 06/10/2023 11:10 AM EDT Note Date & Type Note Facility 08-16-2023 Note [facility] 08-13-2023 Note [facility] 08-07-2023 Note [facility] 07-16-2023 Miscellaneous Notes [facility] Anticoagulation Episode Summary Anticoagulation Care Providers Provider Role Specialty Phone number Macey Stack MD Responsible Internal Medicine [phone] Gagandeep Marion Haim is a 77 year [...] of liver or green tea, Ensure, Boost, [place] Instant Breakfast, Mulit-Vitamins, and V-8. Plan: Current [...] Pharmacy Anticoagulation Clinic [facility] Pager: [phone]. documented in this encounter [facility] 06-23-2023 Miscellaneous Notes Spoke to lE, Patient picked up Coumadin 2.5mg today and has 4 refills remaining. Hilda Nicole LPN documented in this encounter [facility] 06-13-2023 Miscellaneous Notes Patient's request for medication is as follows: Requested Prescriptions Refused Prescriptions Disp Refills carvedilol (COREG) 3.125 mg tablet 180 tablet 1 Sig: Take 1 tablet by mouth two times a day. Refused By: ERIN WAY Reason for Refusal: Patient has requested refill too soon Refilled 06/10/2023 for 180 tabs and 1 refill to [facility]. Prescription(s) as above. Please process accordingly. Erin Way LPN documented in this encounter [facility] 06-12-2023 Note [facility] 06-10-2023 Miscellaneous Notes [facility] Anticoagulation Episode Summary Anticoagulation Care Providers Provider Role Specialty Phone number Macey Stack MD Responsible Internal Medicine [phone] Gagandeep Marion Haim is a 77 year [...] Pharmacy Anticoagulation Clinic Pharm[facility] Pager: [phone]. documented in this encounter [facility] 06-10-2023 Miscellaneous Notes Patient's request for medication is as follows: Requested Prescriptions Pending Prescriptions Disp Refills carvedilol (COREG) 3.125 mg tablet [Pharmacy Med Name: Carvedilol 3.125 MG Oral Tablet] 180 tablet 1 Sig: Take 1 tablet by mouth twice daily Last seen 08/21/2022. Follow up scheduled for 09/2023. Prescription(s) as above. Please process accordingly. Efren Magallanes LPN documented in this encounter [facility] 06-09-2023 Miscellaneous Notes Patient phones requesting refills as follows: Requested Prescriptions Pending Prescriptions Disp Refills carvedilol (COREG) 3.125 mg tablet [Pharmacy Med Name: Carvedilol 3.125 MG Oral Tablet] 180 tablet 0 Sig: Take 1 tablet by mouth twice daily Please review and advise. Aisha Lugo RN documented in this encounter [facility] 05-20-2023 Note [facility] 05-20-2023 Miscellaneous Notes Pt called and is notified of providers results and instructions. Pt voices understanding. Fara Arshad RN Called patient- no answer. Left message to call clinic for results. Jayshree Freeman LPN ----- Message from Isaiah Patten PA-C sent at 05/20/2023 10:40 AM EDT ----- No abnormalities of the kidneys, ureters, or bladder. only a few scattered hypodense lesions throughout the spleen, too small to characterize but unchanged from 02/27/2022 and favored to be benign. LATASHA Thomas MT, PA-C documented in this encounter [facility] 05-20-2023 Instructions Mary Mckeon PA-C - 05/20/2023 2:[address] Contreras and see if you should still be on lisinopril documented in this encounter [facility] 05-20-2023 History of Presen t illness [...] rise. Recently had hematuria, so he saw Isaiah Patten PA-C. Pt reports that he thought that it was because he took viagra and masturbated. REVIEW OF SYSTEMS See HPI All other systems negative. PAST MEDICAL HISTORY Diagnosis Date Anxiety Anxiety and depression 12/26/2014 At risk for stroke Back pain Bradycardia CHF (congestive heart failure) (HCC) Dyspepsia Fracture Hematuria, unspecified type 04/28/2023 History [...] LV systolic dysfunction ECHO TRANSESOPHAG CONGEN PROBE [facility] IMG I&R 05/18/2020 see report; notable for [...] by [facility].^Disp: 30 tablet^Rfl: 5 FAMILY HISTORY [...] symptoms occur. Patient agreeable to treatment plan. Mary Mckeon PA-C documented in this encounter [facility] 05-20-2023 Nurse Note coumadin is managed by [facility] pharmacy dept Lisinopril d/c'd x 2 months documented in this encounter [facility] 05-19-2023 Miscellaneous Notes [facility] Anticoagulation Episode Summary Anticoagulation Care Providers Provider Role Specialty Phone number Macey Stack MD [facility] Internal Medicine [phone] Gagandeep Marion Duarte is a 77 year [...] instructed to call [facility] at [phone] with any questions or concerns. Husam Chilel RPh Clinical Pharmacist, Pharmacy Anticoagulation Clinic [facility] Pager: [phone] documented in this encounter [facility] 05-16-2023 Note [facility] 04-30-2023 Miscellaneous Notes [facility] Anticoagulation Episode Summary Anticoagulation Care Providers Provider Role Specialty Phone number Macey Stack MD Responsible Internal Medicine [phone] Gagandeep Marion Duarte is a 77 year [...] Pharmacy Anticoagulation Clinic Pharmacy [facility] Pager: [phone]. documented in this encounter [facility] 04-29-2023 Note [facility] 04-29-2023 Note [facility] 04-29-2023 Instructions Isaiah Patten PA-C - 04/29/2023 12:[address] Urogram to be scheduled at [facility] Cystoscopy to scheduled at [facility] ([place]) seen in 2017 they will contact patient # [phone] Urine Culture - - Pending Urine Cytology- - Pending Thank Sandor hardy documented in this encounter [facility] 04-29-2023 History of Presen t illness Narrative Images from the original note were not included. Or UTI [facility] NEW CONSULT PATIENT CLINIC NOTE SERVICE DATE: 04/29/2023 SERVICE TIME: 12:10 PM NAME: Gagandeep Duarte Consultation requested by Macey Stack MD for an opinion regarding Gross Hematuria [...] (COUMADIN) 3 mg tablet^Take as directed by [facility].^Disp: 30 tablet^Rfl: 5 iv contrast [...] Back pain Bradycardia CHF (congestive heart failure) [facility] Dyspepsia Fracture Hematuria, unspecified type 04/28/2023 History [...] 4.00 k/uL Monocytes % 10.2 % Abs [place] 0.68 <0.87 k/uL Eosinophils % 2.7 % [...] R31.9 CT Urogram to be scheduled at [facility] Cystoscopy to scheduled at [facility] ([place]) seen in 2017 they will contact patient # [phone] Urine Culture - - Pending Urine Cytology- [...] tolerated the procedure well. Plan: Appointment with Isaiah. Provided with water and encouraged to drink as Isaiah does request specimen in event of need for further testing. documented in this encounter [facility] 04-28-2023 Note [facility] 04-12-2023 Miscellaneous Notes Reason for Call: Bleeding [...] (using correct technique) Protocols used: Cuts and [id number] documented in this encounter [facility] 04-11-2023 Miscellaneous Notes Patient notified and will come in to get blood work. Flavia Vasquez LPN Please let patient know Neeta Bowman, EILEEN And I spoke about his labs, and we want to add on another one to check why that liver function is so high. If he can obtain that soon, that'd be great. Mary Mckeon PA-C documented in this encounter [facility] 04-03-2023 Miscellaneous Notes Patient due to test INR today. Will continue to monitor for results. Richard Ramirez RPh documented in this encounter [facility] 04-01-2023 Miscellaneous Notes Patient has been [...] advise. Makayla Robles documented in this encounter [facility] 03-12-2023 Note [facility] 03-12-2023 History of Presen t illness Narrative CC: Patient presents with: Follow Up: lung tests and ECHO test results needs explained per patient, needs coumadin refill HPI Gagandeep Duarte is a 77 year old adult who presents today for 4-6 week f/u, as pt was unable to get in with cardiology. LV was with Neeta Bowman, EILEEN 01/31/23. Requesting that we discuss his echo [...] LV systolic dysfunction ECHO TRANSESOPHAG CONGEN PROBE [facility] I&R 05/18/2020 see report; notable for moderate [...] symptoms occur. Patient agreeable to treatment plan. Mary Mckeon PA-C documented in this encounter [facility] 03-07-2023 Note [facility] 03-07-2023 History of Presen t illness Narrative CD Telephonic Outreach Provider Action/JUAN ANTONIO Mr. Duarte thought he was caught up with his Home Monitoring Questionnaire Agrees to have Instructions on how to find the Home Monitoring Questionnaire sent via [employer] Contacted for: Engagement Contact made with patient: Yes Patient identified by name and date of . Discussed care with patient Outcomes: Patient forgot, reminder given Are you experiencing any new or worsening symptoms you need to talk about today? No Based on corporate director talent assessment, the following disposition is advised: No symptoms or symptoms present, not severe. Routed to: No Action Needed DIONNA Education Provided this Outreach: Yes Tamra Mock RN March 07, 2023 3:00 PM documented in this encounter [facility] 03-06-2023 Note [facility] 03-06-2023 Note [facility] 03-06-2023 History of Presen t illness Narrative PULM FUNCTION SMARTBLOCK: Provider: Nancy Sales MD Assisting Tech: Bonnie Caal RPFT Spirometry: 1 DLCO: 1 6 MW: 1 documented in this encounter [facility] 03-03-2023 Note [facility] 02-26-2023 Miscellaneous Notes [facility] Anticoagulation Episode Summary Anticoagulation Care Providers Provider Role Specialty Phone number Macey Stack MD Responsible Internal Medicine [phone] Gagandeep Marion Duarte is a 77 year [...] Pharmacy Anticoagulation Clinic Pharmacy An[facility] Clinic Pager: [phone]. documented in this encounter [facility] 02-14-2023 Miscellaneous Notes Patient notified. Flavia Colin LPN Please call patient and let him know I spoke to Neeta Bowman CNP since she knows him personally, and we are not quite sure -- we can talk about it further at upcoming visit, and go through more questions and if no answer as to why we can refer him to GI. Mary Mckeon PA-C patient notified and is asking why would his liver enzymes go up. Patient stated that he does not take ibuprofen nor does he take tylenol or ETOH. please advise further Flavia Colin LPN Please call patient and let him know his ultrasound of his liver was normal. No further intervention is needed at this time. Mary Mckeon PA-C documented in this encounter [facility] 02-12-2023 Miscellaneous Notes [facility] Clinic Anticoagulation Episode Summary Anticoagulation Care Providers Provider Role Specialty Phone number Macey Stack MD [facility] Internal Medicine [phone] Gagandeep Marion Duarte is a 77 year [...] Patient denies need for refills. Mireya Madsen [facility] Clinical Pharmacist, Pharmacy Anticoagulation Clinic Pharmacy Anticoagulation Clinic Pager: [phone]. documented in this encounter [facility] 02-05-2023 Note [facility] 02-04-2023 Miscellaneous Notes Patient returned call and given provider's message below with verbalized understanding. Transferred to [facility] to schedule US. Left message to call office. 02/04/2023 1:39 PM Please let patient know Alkaline phosphate increased again and another level was elevated indicating a liver cause for elevation. I am ordering an US to further evaluate liver Thank you Neeta Bowman APRN.EILEEN documented in this encounter [facility] 02-04-2023 Miscellaneous Notes [facility] Clinic Anticoagulation Episode Summary Anticoagulation Care Providers Provider Role Specialty Phone number Macey Stack MD [facility] Internal Medicine [phone] Gagandeep Marion Duarte is a 77 year [...] Pharmacy Anticoagulation Clinic Pharmacy Anticoagulation Clinic Pager: [phone]. PATIENT CALL Patient called call center regarding results. Patient tested INR today and it was 3.4. Patient will report the result to Baljit, hasn't done so yet. PT INR (no units) Date Value 08/08/2022 2.5 08/09/2021 1.7 01/25/2021 3.4 (BioTel) INR Home CoaguChek (no units) Date Value 02/02/2023 6.0 01/08/2023 3.7 12/17/2022 3.4 Greg Wilson (Fire Technician) documented in this encounter [facility] 02-03-2023 Miscellaneous Notes PATIENT CALL Received call from Summer with [employer] [facility] to report home meter result for patient. [facility] has already addressed this result (see below); nothing further needed at this time. Fara Chávez CPhT (Office Clerk Assistant) Pharmacy Anticoagulation Clinic [facility] Anticoagulation Episode Summary Anticoagulation Care Providers Provider Role Specialty Phone number Macey Stack MD Responsible Internal Medicine [phone] Gagandeep Marion Duarte is a 77 year [...] Pharmacy Anticoagulation Clinic Pharmacy Anticoagulation Clinic Pager: [phone]. documented in this encounter [facility] 01-31-2023 Note [facility] 01-27-2023 Note [facility] 01-27-2023 Note [facility] 01-27-2023 History of Presen t illness Narrative Virtualist Distance Health Note (CDM/TCM//CC HC/H@[facility] escalations) Gagandeep Marion Duarte has consented to this telephone encounter. Persons Present: patient and patient's spouse/significant other Triage source: [facility] provider escalation Was patient downgraded (i.e. disposition other than go to the ED was advised)? No Contacted by phone, [employer], [employer], [employer], [employer], other: phone 1:04 PM History [...] SOB at rest feels he needs ED [facility] [address] did not feel [...] states will call 911 patient agrees David Pignolet Disposition: Patient instructed to go to the ED A total of 12 minutes was spent providing medical care using telemedicine. Signed in as Primary Virtualist, Secondary Virtualist, or [facility] Telehealth provider: Primary SIGNATURE: David Miles MD PATIENT NAME: Gagandeep Duarte DATE: January 27, 2023 documented in this encounter [facility] 01-27-2023 History of Presen t illness Narrative M Telephonic Outreach Provider Action/FYI: Routed and Pages Virtual Provider Dr. Braden Ferrer Call from Pt's who noted concern, Pt was seen in [facility] 2 days ago for Sob, CXR [...] to talk about today? Yes Based on corporate director talent assessment, the following disposition is advised: Sent to virtualist. Makayla Maldonado RN January 27, 2023 12:46 PM documented in this encounter [facility] 01-25-2023 Note [facility] 01-24-2023 Miscellaneous Notes Called and spoke with [...] Yakelin Mckay RN documented in this encounter [facility] 01-13-2023 Miscellaneous Notes Called and spoke with the patient. Patient asking what rare FAMILY SERVICE COUNSELOR means in latest Pacemaker check. Answered questions and patient denies any other questions at this time. Yakelin Mckay RN Patient seen today by PCP, Patient asking for clarification on recent Pacemaker results. Please call patient [phone] documented in this encounter [facility] 01-13-2023 Note [facility] 01-13-2023 Instructions Neeta Bowman APRN.CNP - 01/13/2023 10:46 AM EDT Start taking your torsemide in the morning documented in this encounter [facility] 01-13-2023 History of Presen t illness Narrative CC: Patient presents with: Fatigue: Increased fatigue, review results HPI Gagandeep Duarte is a 77 year old adult who presents today for increased fatigue. Also wanting to discuss pacemaker interrogation results. Unable to fully educate patient as he wanted to know what rare FAMILY SERVICE COUNSELOR meant. Discussed the importance of discussing this [...] Back pain Bradycardia CHF (congestive heart failure) ([facility]) Dyspepsia Fracture History of sick sinus syndrome [...] LV systolic dysfunction ECHO TRANSESOPHAG CONGEN PROBE [facility] IMGNG I&R 05/18/2020 see report; notable for [...] Neeta Bowman APRN.CNP documented in this encounter [facility] 01-09-2023 Miscellaneous Notes Pharmacy electronically requests the following refill(s) Requested Prescriptions Pending Prescriptions Disp Refills torsemide (DEMADEX) 20 mg tablet [Pharmacy Med Name: Torsemide 20 MG Oral Tablet] 90 tablet 3 Sig: Take 1 tablet by mouth once daily Yakelin Mckay RN documented in this encounter [facility] 01-08-2023 Miscellaneous Notes [facility] Anticoagulation Clinic Anticoagulation Episode Summary Anticoagulation Care Providers Provider Role Specialty Phone number Macey Stack MD Responsible Internal Medicine [phone] Gagandeep Marion Duarte is a 77 year [...] Pharmacy Anticoagulation Clinic Pharmacy Anticoagulation Clinic Pager: [phone]. Gagandeep Duarte was called and reminded to test INR today or as soon as possible. Flavia Whitmore RPh documented in this encounter [facility] 12-17-2022 Miscellaneous Notes [facility] Anticoagulation Clinic Anticoagulation Episode Summary Anticoagulation Care Providers Provider Role Specialty Phone number Macey Stack MD [facility] Internal Medicine [phone] Gagandeep Duarte is a 77 year old [...] Pharmacy Anticoagulation Clinic Pharmacy Anticoagulation Clinic Pager: [phone]. documented in this encounter [facility] 12-16-2022 Miscellaneous Notes Gagandeep Duarte was called and reminded to test INR today or as soon as possible. Patient was due to test INR today. Will continue to monitor for results. documented in this encounter [facility] 11-25-2022 Miscellaneous Notes [facility] Anticoagulation Clinic Anticoagulation Episode Summary Anticoagulation Care Providers Provider Role Specialty Phone number Macey Stack MD [facility] Internal Medicine [phone] Gagandeep Duarte is a 77 year old [...] instructed to call [facility] at [phone] with any questions or concerns. Husam Chilel RPh Clinical Pharmacist, Pharmacy Anticoagulation Clinic Pharmacy Anticoagulation Clinic Pager: [phone] documented in this encounter [facility] 11-22-2022 Note [facility] 11-22-2022 History of Presen t illness Narrative Reason for Visit Patient presents with: F/U HTN 3 Month Gagandeep Duarte is a 77 year old male who presents here today for Above Complaints.. Health Maintenance DTAP,TDAP,TD(1 - Tdap) ADVANCE DIRECTIVE DISCUSSION SHINGRIX VACCINE(3 of 3) HPI Pulm Fib: Patient completed [facility] his pulmonary rehab for ILD, and pulm [...] LV systolic dysfunction ECHO TRANSESOPHAG CONGEN PROBE [facility] IMGNG I&R 05/18/2020 see report; notable for [...] 5 YRS/> REDUCIBLE 2011 Hernia repair, inguinal FAMILY HISTORY Problem Relation [...] visit - Goal of BP <130/80 Macey Stack MD documented in this encounter [facility] 11-21-2022 Miscellaneous Notes Pt was due to test INR today. No result received. Will continue to monitor for result. Angela Arguello RPh.' documented in this encounter [facility] 11-11-2022 Miscellaneous Notes Patient's request for medication is as follows: Requested Prescriptions Pending Prescriptions Disp Refills lisinopril (ZESTRIL) 10 mg tablet 90 tablet 3 Sig: Take 1 tablet by mouth once daily. Last visit 08/2022 Prescription(s) as above. Please process accordingly. Yanet Peña RN documented in this encounter [facility] 11-04-2022 Miscellaneous Notes Patient has been [...] Flavia Colin LPN documented in this encounter [facility] 10-22-2022 Miscellaneous Notes Called and left [...] get me details on it. Regards, Macey Stack MD Patient calls to ask if provider has got a chance to look at US results of left thigh from 10/14/2022 done by [facility]. Ordered by Neeta Bowman who is out this week. Sending to Dr. Stack for review. Please review and advise, Barb Aleman RN documented in this encounter [facility] 10-21-2022 Note [facility] 10-21-2022 History and physical note SUBSEQUENT VISIT [...] Geovanny Ray MD documented in this encounter [facility] 10-21-2022 Note [facility] 10-21-2022 History of Presen t illness Narrative IRB [id number]: A Randomized, Double-blind, Placebo-controlled, Phase 3 Study of the Efficacy and Safety of Inhaled Treprostinil in Subjects with Idiopathic Pulmonary Fibrosis Gagandeep Duarte is a 77 y.o. non-, non-[place], white male (at ), never-smoker, here today [...] (dx: ??/??/1999) 11. Permanent atrial fibrillation (dx: ?/) 12. Posterior vitreous detachment (dx: 07/26/2014) 13. Presence of cardiac pacemaker () 14. 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 Shoulder impingement (dx: 01/06/2014) For complete H & P, please see Dr. Ray's note. Concomitant medications: Warfarin 2.5mg PO for anticoagulation prophylaxis once daily (as directed) Start date: ??/? Stop date: ongoing Atorvastatin 20mg PO for Hyperlipidemia once daily Start date: Stop date: ongoing Carvedilol 3.125mg PO for CHF. Take 1 caps twice daily Start date: ??/? Stop date: ongoing Torsemide 20 mg PO capsule for CHF. Take once daily Start date: ??? Stop date: ongoing Potassium Chloride 10mEq PO tablet for nutritional supplementation once daily Start date: ? Stop date: ongoing Lisinopril 10mg capsule for Hypertension: Take 1 cap PO daily Start date: Stop date: ongoing Paroxetine 20mg capsule for [...] performed? Not at today's visit HR= QRS= ME= QT= QTcF= Significant findings: HRCT date: Done [...] gathered, it will be determined if Gagandeep R Rask is eligible for randomization visit. Homer Garcia Research Clerk documented in this encounter [facility] 10-21-2022 Note [facility] 10-21-2022 History of Presen t illness Narrative IRB [id number]: A Randomized, Double-blind, Placebo-controlled, Phase 3 Study of the Efficacy and Safety of Inhaled Treprostinil in Subjects with Idiopathic Pulmonary Fibrosis Gagandeep Duarte is a 77 y.o. non-, non-[place], white male (at ), never-smoker, here today [...] been reviewed by Dr. Ray, and Gagandeep Marion Haim is assessed as appropriate and eligible to [...] prophylaxis once daily (as directed) Start date: ??/??/1989 Stop date: ongoing Atorvastatin 20mg PO for Hyperlipidemia once daily Start date: ? Stop date: ongoing Carvedilol 3.125mg PO for CHF. Take 1 caps twice daily Start date: ??/??/2016 Stop date: ongoing Torsemide 20 mg PO capsule for CHF. Take once daily Start date: ??/??/2016 Stop date: ongoing Potassium Chloride 10mEq PO [...] performed? Not at today's visit HR= QRS= ME= QT= QTcF= Significant findings: HRCT date: Done [...] is eligible for randomization visit. Homer Garcia Research Clerk documented in this encounter [facility] 10-21-2022 History of Presen t illness [...] 2022 11:29 AM documented in this encounter [facility] 10-17-2022 Miscellaneous Notes [facility] Anticoagulation Clinic Anticoagulation Episode Summary Anticoagulation Care Providers Provider Role Specialty Phone number Macey Stack MD Responsible Internal Medicine [phone] Gagandeep Marion Duarte is a 77 year [...] INR check scheduled on 10/31/2022 Maryan Berumen [facility] Clinical Pharmacist, Pharmacy Anticoagulation Clinic Pharmacy Anticoagulation Clinic Pager: [phone]. documented in this encounter [facility] 10-15-2022 Miscellaneous Notes Order for US has been faxed to [facility] central scheduling. Patient aware of same. Patient would like to have US Extremity Fluid Collection done at [facility]. Patient canceled the October 24 appointment in [place] on-line. Please advise and call patient. documented in this encounter [facility] 10-14-2022 Note [facility] 10-14-2022 Note [facility] 10-14-2022 History of Presen t illness Narrative CC: Patient presents with: Mass: Lump on outer L leg x 3 weeks HPI Gagandeep Marion Duarte is a 77 year old male [...] Back pain Bradycardia CHF (congestive heart failure) ([facility]) Dyspepsia Fracture History of sick sinus syndrome Hyperlipidemia 05/03/2015 Hypertension 12/26/2014 Hypogonadism in male Inguinal hernia Mitral valve regurgitation [facility] valve replacement 1989 Panic attacks Permanent atrial fibrillation ([facility]) atrial fibrillation diagnosed 2008, permanent by 2016 [...] LV systolic dysfunction [facility]/2020 see report; notable for moderate [...] (COUMADIN) 3 mg tablet^Take as directed by [facility].^Disp: 30 tablet^Rfl: 5 potassium chloride [...] Neeta Bowman APRN.CNP documented in this encounter [facility] 10-09-2022 Miscellaneous Notes Called pt back [...] Pharmacy Anticoagulation Clinic Patient returned the call. [phone] [facility] Anticoagulation Clinic Anticoagulation Episode Summary Anticoagulation Care Providers Provider Role Specialty Phone number Macey Stack MD Responsible Internal Medicine [phone] Gagandeep Marion Duarte is a 77 year [...] Pharmacy Anticoagulation Clinic Pharmacy Anticoagulation Clinic Pager: [phone]. PATIENT CALL Edvin's called call center regarding results. PT INR (no units) Date Value 08/08/2022 2.5 08/09/2021 1.7 01/25/2021 3.4 (BioTel) INR Home CoaguChek (no units) Date Value 10/08/2022 5.5 09/20/2022 2.5 09/12/2022 4.0 Patient can be reached at [phone] Greg Wilson (Fire Technician) documented in this encounter [facility] 10-04-2022 Miscellaneous Notes Patient due to test INR today. Will continue to monitor for results. Deisy Naylor RPh documented in this encounter [facility] 10-01-2022 Note HNO ID: [id number] Author: Tereso Garcia [facility] Service: ? Author Type: ? Type: Progress Notes Filed: 10/01/2022 2:15 PM Note Text: Per TETON study protocol. [facility] 09-13-2022 Miscellaneous Notes Patient returned admin's voicemail. [...] should be performed. documented in this encounter [facility] 09-12-2022 Miscellaneous Notes [facility] Anticoagulation Clinic Anticoagulation Episode Summary Anticoagulation Care Providers Provider Role Specialty Phone number Macey Stack MD [facility] Internal Medicine [phone] Gagandeep Marion Duarte is a 77 year [...] Pharmacy Anticoagulation Clinic Pharmacy Anticoagulation Clinic Pager: [phone]. documented in this encounter [facility] 09-09-2022 Miscellaneous Notes [facility] Anticoagulation Clinic Anticoagulation Episode Summary Anticoagulation Care Providers Provider Role Specialty Phone number Macey Stack MD Responsible Internal Medicine [phone] Gagandeep Marion Duarte is a 77 year [...] apap) / herbal products, change in warfarin maintenance man, recent nausea/vomiting/diarrhea/fever, increased SOB or edema, recent [...] Pharmacy Anticoagulation Clinic Pharmacy Anticoagulation Clinic Pager: [phone]. PATIENT CALL Paulette called call center regarding results PT INR (no units) Date Value 08/08/2022 2.5 08/09/2021 1.7 01/25/2021 3.4 (BioTel) INR Home CoaguChek (no units) Date Value 09/07/2022 5.6 08/08/2022 2.5 07/18/2022 2.2 Patient can be reached at [phone] Greg Wilson, Office Clerk Assistant (drilling manager) Pharmacy Anticoagulation Clinic documented in this encounter [facility] 08-30-2022 Miscellaneous Notes Patient due to test INR today. Will continue to monitor for results. Desiy Naylor RPh documented in this encounter [facility] 08-26-2022 Note [facility] 08-26-2022 History of Presen t illness Narrative Consultation requested by Dr. Funez for an opinion regarding ILD. My final recommendations will be communicated back to the requesting physician by way of shared Medical record or letter to requesting physician via US mail. Thank you for requesting the consult on Mr. Gagandeep Duaret. I saw him in my interstitial lung [...] use. 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 Dogs and [...] Back pain Bradycardia CHF (congestive heart failure) ([facility]) Dyspepsia Fracture History of sick sinus syndrome [...] LV systolic dysfunction ECHO TRANSESOPHAG CONGEN PROBE [facility] IMGNG I&R 05/18/2020 see report; notable for [...] 3 mg tablet Take as directed by [facility]. potassium chloride (K-TAB) 10 mEq [...] ! DNA Antibody w/Confirmation <30 IU/mL 12.23 Anti-ORNAMENTAL PAINTER <1.0 AI <1.0 AI <0.2 <0.2 Ribosomal ORNAMENTAL PAINTER Ab <1.0 AI <1.0 AI 0.2 0.2 [...] Negative Negative Polymyositis Interpretation See Note Ribosomal ORNAMENTAL PAINTER Qualitative Negative Negative Negative Negative ORNAMENTAL PAINTER Antibody QUAL Negative Negative Negative Negative SSA [...] 63.0 Lymph% (%) Date Value 03/07/2022 21.8 [place]% (%) Date Value 03/07/2022 9.4 Eosin% (%) Date Value 07/09/2021 3.6 Baso% (%) Date Value 03/07/2022 1.0 Abs Neut (k/uL) Date Value 03/07/2022 3.94 Abs [place] (k/uL) Date Value 03/07/2022 0.59 Abs Eosin [...] Expiration Date: 09/25/2023 Scheduling Instructions: Please call [phone] to schedule, cancel, or change an appointment. [...] any questions. Best Regards, Nancy Sales MD, [facility] Staff Physician Respiratory O'Brien I spent 35 minutes on this encounter [...] not fully corrected. documented in this encounter [facility] 08-22-2022 Note [facility] 08-22-2022 History of Presen t illness Narrative Reason for Visit Patient presents with: Recheck: Fibrosis questions Gagandeep Duarte is a 76 year old male who presents here today for Above Complaints.. Health Maintenance HEPATITIS C SCREENING SHINGRIX VACCINE(2 of 3) DTAP,TDAP,TD(1 - Tdap) ADVANCE DIRECTIVE DISCUSSION HPI [facility] he was done with his pulmonary rehab [...] LV systolic dysfunction ECHO TRANSESOPHAG CONGEN PROBE [facility] I&R 05/18/2020 see report; notable for moderate [...] ICD9: 427.31, ICD10: I48.21 Cont the coumadin. Macey Stack MD documented in this encounter [facility] 08-21-2022 Note HNO ID: [id number] Author: Linus Madrid MD Service: ? Author Type: Physician Type: Progress Notes Filed: 08/21/2022 6:45 PM Note Text: PRIMARY CARE PHYSICIAN: Macey Stcak [address] [place] [address] Patient Care Team: Macey Stack MD as PCP - General (Internal Medicine) Pharmacist 13 as Pharmacist (Pharmacy) Makayla Maldonado, VIKY as Medical Translator (Internal Medicine) Jose Ramon Contreras MD as Specialty Phone Operator (Cardiology) Linus Madrid MD as Specialty Phone Operator (Cardiology) Nancy Sales MD as Specialty Phone Operator (Pulmonary Disease) Natalia Gaffney MD as Specialty Phone Operator (Rheumatology) CHIEF COMPLAINT: Follow up for arrhythmia HISTORY OF PRESENT ILLNESS: Mr. Duarte is a 76 year old male who presents today for a cardiovascular medicine follow-up visit. History copied from previous notes, edited as needed: Dr. Madrid's previous office notes 06/19/2020: Mr. Duarte is a 74 year old male who presents today for evaluation for possible implantable cardioverter defibrillator (ICD) implant, possibly biventricular pacing AKA cardiac resynchronization system. He has a history of valvular heart disease. He underwent mechanical mitral valve replacement ([facility]) in 1993 severe mitral regurgitation. He has a pacemaker that was implanted in 2017 for symptomatic bradycardia. Atrial fibrillation was diagnosed [...] orthopnea, cough, palpitations, PND. Interim History Dr. Madrid 07/24/2021: Mr. Duarte presents for routine follow-up [...] lightheadedness, near-syncope or syncope.. Interim History Dr. Madrid 08/21/2022: Mr. Duarte presents for follow-up evaluation [...] finished 3 months of pulmonary rehab at [facility]. I have confirmed and edited as necessary, [...] Presence of ca (more content not included)... [facility] 08-21-2022 Nurse Note NO CARDIAC CONCERNS TODAY documented in this encounter [facility] 08-21-2022 History of Presen t illness Narrative PRIMARY CARE PHYSICIAN: Macey Stack [address] [place] [address] Patient Care Team: Macey Stack MD as PCP - General (Internal Medicine) Pharmacist 13 as Pharmacist (Pharmacy) Makayla Maldonado RN as Medical Translator (Internal Medicine) Jose Ramon Contreras MD as Specialty Phone Operator (Cardiology) Linus Madrid MD as Specialty Phone Operator (Cardiology) Nancy Sales MD as Specialty Phone Operator (Pulmonary Disease) Natalia Gaffney MD as Specialty Phone Operator (Rheumatology) CHIEF COMPLAINT: Follow up for arrhythmia HISTORY OF PRESENT ILLNESS: Mr. Duarte is a 76 year old male who presents today for a cardiovascular medicine follow-up visit. History copied from previous notes, edited as needed: Dr. Madrid's previous office notes 06/19/2020: Mr. Duarte is [...] orthopnea, cough, palpitations, PND. Interim History Dr. Madrid 07/24/2021: Mr. Duarte presents for routine follow-up [...] lightheadedness, near-syncope or syncope.. Interim History Dr. Madrid 08/21/2022: Mr. Duarte presents for follow-up evaluation [...] finished 3 months of pulmonary rehab at [facility]. I have confirmed and edited as necessary, [...] LV systolic dysfunction ECHO TRANSESOPHAG CONGEN [facility]BE [facility] [facility] 05/18/2020 see report; notable for moderate [...] 3 mg tablet Take as directed by [facility]. potassium chloride (K-TAB) 10 mEq [...] wave abnormality Device Check: pacemaker evaluation by [facility] dated today 08/21/2022, encounter [...] which included preparing to see the patient, [id number] patient care, completing clinical documentation, obtaining and/or [...] He will continue to follow up with [facility] under my supervision. Return in about 1 year (around 08/21/2023) for Dr. Madrid, same day Device Clinic. Linus Madrid MD 08/21/2022 Medical Decision Making: Problems: Moderate: 2+ stable chronic illnesses Data: Unique source(s) for external note(s) reviewed: 1 Unique test result(s) reviewed: 2 Unique test(s) ordered: 1 Risk: Moderate: Moderate risk from testing/treatment and Drug management Medical Decision Making Level: 4 - Moderate documented in this encounter [facility] 08-13-2022 Miscellaneous Notes Pharmacy verified in Epic Patient has been identified by name and [...] Darlene Mata Pss documented in this encounter [facility] 08-09-2022 Miscellaneous Notes [facility] Clinic Anticoagulation Episode Summary Anticoagulation Care Providers Provider Role Specialty Phone number Macey Stack MD Responsible Internal Medicine [phone] Gagandeep Marion Duarte is a 76 year [...] Pharmacy Anticoagulation Clinic Pharmacy An[facility] Clinic Pager: [phone]. documented in this encounter [facility] 08-08-2022 Miscellaneous Notes Gagandeep Duarte was called, left VM at [phone] (home/cell) and reminded to test INR today or as soon as possible. Maryan Berumen RPh Patient was due to test INR today will continue to monitor for results. Mireya Madsen PharmD documented in this encounter [facility] 07-18-2022 Miscellaneous Notes [facility] Clinic Anticoagulation Episode Summary Anticoagulation Care Providers Provider Role Specialty Phone number Macey Stack MD Responsible Internal Medicine [phone] Gagandeep Marion Duarte is a 76 year [...] Patient denies need for refills. Maryan Berumen [facility] Clinical Pharmacist, Pharmacy Anticoagulation Clinic Pharmacy An[facility] Pager: [phone]. documented in this encounter [facility] 07-01-2022 Miscellaneous Notes [facility] Anticoagulation Episode Summary Anticoagulation Care Providers Provider Role Specialty Phone number Macey Stack MD Responsible Internal Medicine [phone] Gagandeep Duarte is a 76 year old [...] verbalizes understanding of the plan. Husam Chilel [facility] Clinical Pharmacist, Pharmacy Anticoagulation Clinic Pharmacy Anticoagulation Clinic Pager: [phone]. documented in this encounter [facility] 06-17-2022 Miscellaneous Notes [facility] Anticoagulation Clinic Anticoagulation Episode Summary Anticoagulation Care Providers Provider Role Specialty Phone number Macey Stack MD Responsible Internal Medicine [phone] Gagandeep Duarte is a 76 year old [...] Pharmacy Anticoagulation Clinic Pharmacy Anticoagulation Clinic Pager: [phone]. documented in this encounter [facility] 06-07-2022 Miscellaneous Notes Patient due to test INR today. Will continue to monitor for results. Deisy Naylor RPh documented in this encounter [facility] 06-04-2022 Miscellaneous Notes Last OV: 05/27/22 Next OV: N/A documented in this encounter [facility] 06-04-2022 Miscellaneous Notes Patient's request for medication is as follows: Requested Prescriptions Pending Prescriptions Disp Refills carvedilol (COREG) 3.125 mg tablet 180 tablet 3 Sig: Take 1 tablet by mouth twice daily. Last seen 04/01/2022 in [facility]. Follow up scheduled for 10/14/2022. Prescription(s) as above. Please process accordingly. Erin Way LPN documented in this encounter [facility] 05-31-2022 Miscellaneous Notes [facility]ticoagulation Clinic Anticoagulation Episode Summary Anticoagulation Care Providers Provider Role Specialty Phone number Macey Stack MD [facility] Internal Medicine [phone] Gagandeep Marion Duarte is a 76 year [...] AST (U/L) Date Value 03/07/2022 26 04/28/2020 Estimated Creatinine Clearance: 54.3 mL/min (A) (based [...] Pharmacy Anticoagulation Clinic Pharmacy Anticoagulation Clinic Pager: [phone]. documented in this encounter [facility] 05-28-2022 Miscellaneous Notes Patient calls in to review lab results. Reviewed Negative for Influenza A & B and Positive for Covid. Reviewed Care Advice and Medications prescribed at OV 05/28/2022. Patient verbalizes understanding and will phone back with any further questions. Barb Aleman RN documented in this encounter [facility] 05-28-2022 History of Presen t illness [...] 2022 11:36 AM documented in this encounter [facility] 05-27-2022 History of Presen t illness Narrative CC: Patient presents with: Cough: Fri05/17/22 started with cough. Persistent for last 10 days. Non-productive. Sunday 05/20 fatigue started and has progressed with body aches. HPI Gagandeep Marion Duarte is a 76 [...] LV systolic dysfunction ECHO TRANSESOPHAG CONGEN PROBE [facility] I&R 05/18/2020 see report; notable for moderate [...] Neeta Bowman APRN.CNP documented in this encounter [facility] 05-16-2022 Miscellaneous Notes [facility] Anticoagulation Clinic Anticoagulation Episode Summary Anticoagulation Care Providers Provider Role Specialty Phone number Macey Stack MD Responsible Internal Medicine [phone] Gagandeep Marion Duarte is a 76 year [...] Pharmacy Anticoagulation Clinic Pharmacy Anticoagulation Clinic Pager: [phone]. Patient was due to test INR today. Will continue to monitor for results. documented in this encounter [facility] 05-14-2022 History of Presen t illness [...] IV DATA: Not applicable SIGNED BY: RT Sarbjit(Marion) May 14, 2022 4:25 PM documented in this encounter [facility] 05-14-2022 History of Presen t illness Narrative Images from the original note were not included. Rheumatology Outpatient Clinic Follow Up Visit Date of Service: 05/14/2022 Patient: Gagandeep Duarte Medical Record: [id number] Primary Care Physician: Macey Stack MD Last Rheumatology visit: 03/05/2022 (with Natalia [...] lower thighs, back. Had a visit to [facility] on 10/27 for ? Urticarial [...] LV systolic dysfunction ECHO TRANSESOPHAG CONGEN PROBE [facility] IMGNG I&R 05/18/2020 see report; notable for [...] 5 YRS/> REDUCIBLE 2011 Hernia repair, inguinal Family History FAMILY HISTORY [...] 3 mg tablet Take as directed by [facility]. 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 Mi-2 (nuclear helicase protein) Antibody Negative Negative PL-7 (THREONYL-TRNA SYNTHETASE) ANTIBODY Negative Negative PL-12 (ALANYL-TRNA SYNTHETASE) ANTIBODY Negative Negative P155/140 Antibody Negative Negative Comment: Performed by [employer], [address] [place] [id number] www.[employer], Lizabeth Gómez MD, Lab. Director EJ (GLYCYL-TRNA [...] on 03/21/2022 Name Date COVID-19 vaccine, monovalent (Federated Sample) 11/17/2021 , 05/09/2021 , 10/04/2020 , 09/08/2020 [...] encounter diagnosis) (J84.9) ILD (interstitial lung disease) ([facility]) (R74.8) Alkaline phosphatase elevation + NXP Ab [...] Gaffney MD Rheumatology documented in this encounter [facility] 05-02-2022 Miscellaneous Notes Received message from [facility] indication Patient advised stopped therapy dur to side effects. We have discharged from [facility] today. Noted.- danielle Mota [phone] ext [phone] Shay Tejeda documented in this encounter [facility] 05-02-2022 History of Presen t illness [...] LV systolic dysfunction ECHO TRANSESOPHAG CONGEN PROBE [facility] IMGNG I&R 05/18/2020 see report; notable for [...] - ICD9: 425.4, ICD10: I42.8 Stable Macey Stack MD documented in this encounter [facility] 04-26-2022 Miscellaneous Notes Received fax from Izabella Barclay with [facility] [[phone] ext [phone]] stating: Patient advised stopped therapy due to side effects. - We discharged from [facility] today. Shay Tejeda Received a call from [facility] inquiring about patient's pirfenidone dosing. After reviewing patient's chart, admin informed pharmacy that we would have to call back with clarification after getting clinical guidance. Admin contacted Onel Zavala for guidance. Onel Zavala will consult with Dr. Sales before giving guidance. [facility] requests callback regarding Pirfenidone dosing plan PH: [phone] F: [phone] documented in this encounter [facility] 04-22-2022 Miscellaneous Notes [facility] Anticoagulation Clinic Anticoagulation Episode Summary Anticoagulation Care Providers Provider Role Specialty Phone number Macey Stack MD [facility] Internal Medicine [phone] Gagandeep Marion Duarte is a 76 year [...] instructed to call [facility] at [phone] with any questions or concerns. Husam Chilel [facility] Clinical Pharmacist, Pharmacy Anticoagulation Clinic Pharmacy Anticoagulation Clinic Pager: [phone] documented in this encounter [facility] 04-19-2022 Miscellaneous Notes Patient has been identified by name and date of : Yes Patient phones for refill(s): Requested Prescriptions Pending Prescriptions Disp Refills warfarin (COUMADIN) 3 mg tablet Sig: Take as directed by [facility]. Date of last office visit in primary care: 03/22/22 next apt 05/02/22 Last 2 Encounter Wt Readings: Date: Wt: 04/02/2022 80.8 kg (178 lb 3.2 oz) 04/01/2022 80 kg (176 lb 5.9 oz) Previous labs/tests for medication: Not applicable Thank you. Jillian Alexandra LPN documented in this encounter [facility] 04-16-2022 Miscellaneous Notes Spoke to patient. Clarified dosing. PATIENT CALL Patient called call center regarding question. Patient left message asking to speak to [facility] as he had a question about dosing. Patient can be reached at [phone] Greg Wilson (Fire Technician) documented in this encounter [facility] 04-02-2022 History of Presen t illness Narrative NAME: Gagandeep Duarte AGE: [id number] year old Patient is referred [...] LV systolic dysfunction ECHO TRANSESOPHAG CONGEN PROBE [facility] IMG I&R 05/18/2020 see report; notable for [...] 0.9% 10 mL injection (DEFINITY) INTRAVENOUS DIRECTED PRAdán Contreras MD sodium chloride 0.9 % (flush) 10 mL (BD POSIFLUSH) 10 mL INTRAVENOUS DIRECTED PRAdán Contreras MD ALLERGIES Not on File FAMILY [...] with oil: No documented in this encounter [facility] 04-01-2022 History of Presen t illness Narrative Images from the original note were not included. Jose Ramon Contreras MD Interventional Cardiology [facility] [place] [address], [place] [address] [phone] Chief Complaint Patient presents with: Follow Up [...] LV systolic dysfunction ECHO TRANSESOPHAG CONGEN PROBE [facility] IMGNG I&R 05/18/2020 see report; notable for [...] 5 YRS/> REDUCIBLE 2011 Hernia repair, inguinal FAMILY HISTORY Problem Relation [...] 0.9% 10 mL injection (DEFINITY) INTRAVENOUS DIRECTED PRAdán Contreras MD sodium chloride 0.9 % (flush) 10 mL (BD POSIFLUSH) 10 mL INTRAVENOUS DIRECTED PRAdán Contreras MD Review of Systems Constitutional: Negative [...] correct any errors. documented in this encounter [facility] 04-01-2022 Miscellaneous Notes [facility] Anticoagulation Clinic Anticoagulation Episode Summary Anticoagulation Care Providers Provider Role Specialty Phone number Macey Stack MD Responsible Internal Medicine [phone] Gagandeep Marion Duarte is a 76 year [...] instructed to call [facility] at [phone] with any questions or concerns. Husam Chilel RPh Clinical Pharmacist, Pharmacy Anticoagulation Clinic Pharmacy Anticoagulation Clinic Pager: [phone] documented in this encounter [facility] 03-29-2022 History of Presen t illness Narrative Patient came for left ear lavage. States that he has been using OTC drops as recommended at last appt. Visualized TM and open canal at this time with no cerumen noted. No further action taken at this time. Dorota Jacobs LPN documented in this encounter [facility] 03-27-2022 Miscellaneous Notes Patient has been [...] Hilda Nicole LPN documented in this encounter [facility] 03-26-2022 Miscellaneous Notes Patient called regarding order placed by Dr. Sales for pulmonary rehab orders. Patient stated that he can get this done at [facility] near his home but they need additional information from Dr. Sales to do this. Admin contacted [facility] at [phone] to inquire and left voicemail requesting callback. Will send records once callback and records request is received. documented in this encounter [facility] 03-22-2022 Miscellaneous Notes Patient scheduled for nurse visit 03/29/22 to receive ear lavage. Please place order at this time. Dorota Jacobs LPN documented in this encounter [facility] 03-22-2022 History of Presen t illness [...] LV systolic dysfunction ECHO TRANSESOPHAG CONGEN PROBE [facility] I&R 05/18/2020 see report; notable for moderate [...] (COUMADIN) 3 mg tablet^Take as directed by [facility].^Disp: ^Rfl: FAMILY HISTORY Problem Relation [...] Neeta Bowman APRN.CNP documented in this encounter [facility] 03-21-2022 Instructions Nancy Sales MD - 03/21/2022 2:33 PM EDT - decrease pirfenidone to 1 tab three times / day- let me know if the side effects persist - pulmonary rehab - please start close to home - hepatology follow up as planned for liver tests - Repeat breathing tests, walk in about 6 months - - return 6 month - virtual visit documented in this encounter [facility] 03-21-2022 Procedure note Associated Ord er(s): [...] Walk Trend (Previous Encounters) None SIGNATURE: Eitan Perez RRT PATIENT NAME: Gagandeep Duarte DATE: March 21, [...] TIME: 4:19 PM documented in this encounter [facility] 03-21-2022 History of Presen t illness [...] use. 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 Dogs and [...] Back pain Bradycardia CHF (congestive heart failure) ([facility]) Dyspepsia Fracture History of sick sinus syndrome [...] LV systolic dysfunction ECHO TRANSESOPHAG CONGEN PROBE [facility] I&R 05/18/2020 see report; notable for moderate [...] 3 mg tablet Take as directed by [facility]. Current Facility-Administered Medications Medication Dose [...] ! DNA Antibody w/Confirmation <30 IU/mL 12.23 Anti-ORNAMENTAL PAINTER <1.0 AI <1.0 AI <0.2 <0.2 Ribosomal ORNAMENTAL PAINTER Ab <1.0 AI <1.0 AI 0.2 0.2 [...] Negative Negative Polymyositis Interpretation See Note Ribosomal ORNAMENTAL PAINTER Qualitative Negative Negative Negative Negative ORNAMENTAL PAINTER Antibody QUAL Negative Negative Negative Negative SSA [...] 63.0 Lymph% (%) Date Value 03/07/2022 21.8 [place]% (%) Date Value 03/07/2022 9.4 Eosin% (%) Date Value 07/09/2021 3.6 Baso% (%) Date Value 03/07/2022 1.0 Abs Neut (k/uL) Date Value 03/07/2022 3.94 Abs [place] (k/uL) Date Value 03/07/2022 0.59 Abs Eosin [...] Expiration Date: 04/20/2023 Scheduling Instructions: Please call [phone] to schedule, cancel, or change an appointment. [...] MD, [facility] Staff Physician Respiratory O'Brien I spent 30 minutes on this encounter [...] not fully corrected. documented in this encounter [facility] 03-18-2022 Miscellaneous Notes Left detailed message on [employer]. Please let patient know that this has been sent. Thank you Neeta Bowman APRN.EILEEN Patient is requesting an antibiotic to use prior to his dental visit on 03-18. Pharmacy is [facility]. documented in this encounter [facility] 03-11-2022 Miscellaneous Notes [facility] Anticoagulation Clinic Anticoagulation Episode Summary Anticoagulation Care Providers Provider Role Specialty Phone number Macey Stack MD [facility] Internal Medicine [phone] Gagandeepadán Duarte is a 76 year old year [...] instructed to call [facility] at [phone] with any questions or concerns. Husam Chilel RPh Clinical Pharmacist, Pharmacy Anticoagulation Clinic Pharmacy Anticoagulation Clinic Pager: [phone] documented in this encounter [facility] 03-08-2022 Miscellaneous Notes Patient has been [...] Flavia Colin LPN documented in this encounter [facility] 03-07-2022 History of Presen t illness [...] TIME: 2:44 PM documented in this encounter [facility] 03-06-2022 Vandana Bowman APRN.CNP - 03/06/2022 12:53 PM EDT If any unusual pain, swelling, red streaks, pus, fever or other signs of worsening infection, call immediately. documented in this encounter [facility] 03-06-2022 History of Presen t illness Narrative CC: Patient presents with: Suture Removal HPI Gagandeep Marion Duarte is a 76 year old male who presents today for ER follow-up. Facility: [facility] Date of visit: 02/28/22 Reason for visit: [...] LV systolic dysfunction ECHO TRANSESOPHAG CONGEN PROBE [facility] I&R 05/18/2020 see report; notable for moderate [...] 3 mg tablet Take as directed by [facility]. FAMILY HISTORY Problem Relation Age [...] without difficulty DATA REVIEWED: Outside chart from [facility] ER reviewed. ASSESSMENT/PLAN: 1. Laceration of other [...] Patient agreeable to treatment plan. Pham Bowman APRN.EILEEN documented in this encounter [facility] 03-05-2022 History of Presen t illness Narrative Images from the original note were not included. Rheumatology Outpatient Clinic Follow Up Visit Date of Service: 03/05/2022 Patient: Gagandeep Duarte Medical Record: [id number] Primary Care Physician: Macey Stack MD Last Rheumatology visit: 01/17/2022 (with Natalia [...] lower thighs, back. Had a visit to [facility] on 10/27 for ? Urticarial [...] loss, steady weight since a long time Raynaud's is okay for now-worse in the cold [...] LV systolic dysfunction ECHO TRANSESOPHAG CONGEN PROBE [facility] IMGNG I&R 05/18/2020 see report; notable for [...] 5 YRS/> REDUCIBLE 2011 Hernia repair, inguinal Family History FAMILY HISTORY [...] 3 mg tablet Take as directed by [facility]. 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 Mi-2 (nuclear helicase protein) Antibody Negative Negative PL-7 (THREONYL-TRNA SYNTHETASE) ANTIBODY Negative Negative PL-12 (ALANYL-TRNA SYNTHETASE) ANTIBODY Negative Negative P155/140 Antibody Negative Negative Comment: Performed by [employer], [address] [place] [id number] www.[employer], Lizabeth Gómez MD, Lab. Director EJ (GLYCYL-TRNA [...] Reviewed on 03/05/2022 Name Date COVID-19 vaccine (PFIZER-BIONTVR1 - FAYE TOP) 11/17/2021 COVID-19 vaccine (PFIZER-BIONTVR1 - PURPLE TOP) 05/09/2021 , 10/04/2020 , [...] Time: 4:44 PM documented in this encounter [facility] 03-04-2022 Instructions Lilia Levy MD - 03/04/2022 10:01 AM EDT Please schedule an appointment to see us in 2 months when your bruising has healed for a repeat examination. Obtain lab work. documented in this encounter [facility] 03-04-2022 History of Presen t illness [...] malar rash discovered during video visit with acoustical logging engineer, here to rule out cutaneous lupus/dermatomyositis. 1. [...] Past Histories independently gathered by the clinical cell support operator, and the remaining scribed note accurately describes [...] 4 - Moderate documented in this encounter [facility] 02-28-2022 History of Presen t illness Narrative Nontoxic-appearing male presents urgent care chief plaint head injury. Patient states was walking on the stairs today when he tripped falling on the last 2 steps striking his head on a coffee table. Patient presents today for evaluation. Superficial laceration/abrasion noted left oriental orthodox area. Ecchymosis noted around left eye. It was noted patient is on Coumadin. With patient's presenting symptoms and blood thinning medication recommend patient be seen in ED for further evaluation care. Patient verbalized understand agrees with plan of care. Will be seen at [facility]. Brice Menendez APRN.EILEEN documented in this encounter [facility] 02-25-2022 Miscellaneous Notes [facility] Anticoagulation Clinic Anticoagulation Episode Summary Anticoagulation Care Providers Provider Role Specialty Phone number Macey Stack MD Responsible Internal Medicine [phone] Gagandeep Marion Duarte is a 76 year [...] Pharmacy Anticoagulation Clinic Pharmacy Anticoagulation Clinic Pager: [phone]. Patient due to test INR today. Will continue to monitor for results. Deisy Naylor RPh documented in this encounter [facility] 02-12-2022 Miscellaneous Notes Patient has been [...] Flavia Colin LPN documented in this encounter [facility] 02-06-2022 Miscellaneous Notes Summary: patient returned [...] Onel Zavala RN documented in this encounter [facility] 01-31-2022 Instructions Sil Clark APRN.CNS - 01/31/2022 2:50 PM EDT Aim for about 64 ounces of fluids per day -noncaffeinated beverages Recheck metabolic panel in the next couple weeks -order placed Let us know if you are not feeling improved with this documented in this encounter [facility] 01-31-2022 History of Presen t illness Narrative SUBJECTIVE: HEPATITIS C SCREENING Never done SHINGRIX VACCINE(2 of 3) due on 07/12/2013 DTAP,TDAP,TD(1 - Tdap) due on 07/06/2020 ADVANCE DIRECTIVE DISCUSSION Never done HPI Gagandeep Marion Duarte is a 76 year old male. [...] Risk for Stroke Ild (Interstitial Lung Disease) ([facility]) Followed by Dr Contreras cardiology. Sees Nancy [...] 3 mg tablet Take as directed by [facility]. PAST MEDICAL HISTORY Diagnosis Date [...] Abs Lymph 1.00 - 4.00 k/uL 1.49 [place]% % 9.0 Abs [place] <0.87 k/uL 0.69 Eosin% % 4.4 Abs [...] review in Up-to-date reference, will route to camp director so that he is aware of this complaint. Sil Clark APRN.CNS Medical Decision Making: Problems: Moderate: 1+ chronic illnesses with change Data: Unique test(s) ordered: 1 Medical Decision Making Level: 2 - Straightforward documented in this encounter [facility] 01-31-2022 Miscellaneous Notes Patient calls to [...] symptoms of dehydration. Protocols used: DIZZINESS - [id number] documented in this encounter [facility] 01-24-2022 Miscellaneous Notes Patient due to test INR today. Will continue to monitor for results. Ashleigh Ware RPh documented in this encounter [facility] 01-09-2022 Miscellaneous Notes KAREN: 10/29/2021 Last [...] Raffi Barnes Ma documented in this encounter [facility] 01-08-2022 Miscellaneous Notes Patient's request for medication is as follows: Refused Prescriptions Disp Refills torsemide (DEMADEX) 20 mg tablet 90 tablet 3 Sig: Take 1 tablet by mouth once daily. NIVIA: No Refused By: ERIN WAY Reason for Refusal: A Refill not appropriate Reason for Refusal Comment: Duplicate request Prescription(s) as above. Please process accordingly. Erin Way LPN documented in this encounter [facility] 12-27-2021 Miscellaneous Notes Replied to message with the same question Patient called for test results. Please contact patient. documented in this encounter [facility] 12-20-2021 Miscellaneous Notes GAGANDEEP DUARTE Snider: [id number] MERLIN Outcome: Approved Today PA Case: [id number], Status: Approved, Coverage Starts on: 08/11/2021 12:00:00 AM, Coverage Ends on: 08/10/2022 12:00:00 AM. Drug : Esbriet 267MG tablets Form: [employer] Electronic PA Form Shay Tejeda Medication prior authorization initiated for patient through CoverMyMeds / Esbriet 267 mg / waiting for response. Shay Tejeda documented in this encounter [facility] 12-18-2021 Miscellaneous Notes Received message request from Dr. Sales today 12/18/2021; new initiation of Esbriet 267 mg; RX complete; pending signature; replied back to sender. documented in this encounter [facility] 12-17-2021 Miscellaneous Notes Patient was due to test INR today. Will continue to monitor for results. documented in this encounter [facility] 12-17-2021 Instructions Nancy Sales MD - 12/17/2021 3:24 PM EDT - check blood work today - start esbiert for IPF - return in 3 months - monthly blood work documented in this encounter [facility] 12-17-2021 History of Presen t illness [...] use. 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 Current Facility-Administered Medications Medication Dose [...] 79.9 Lymph% (%) Date Value 10/29/2021 14.0 [place]% (%) Date Value 10/29/2021 5.6 Eosin% (%) Date Value 07/09/2021 3.6 Baso% (%) Date Value 10/29/2021 0.2 Abs Neut (k/uL) Date Value 10/29/2021 7.63 (H) Abs [place] (k/uL) Date Value 10/29/2021 0.54 Abs Eosin [...] Expiration Date: 12/17/2022 ADULT SIX MINUTE WALK [[id number]] Order Specific Question: Should this patient be [...] any questions. Best Regards, Nancy Sales MD, [facility] Staff Physician Respiratory O'Brien I spent 60 minutes on this encounter [...] not fully corrected. documented in this encounter [facility] 12-05-2021 Miscellaneous Notes Noted Pt called and is notified of providers results and instructions. Pt voices understanding. Pt was put through to scheduling to get an LIVIA appointment scheduled with Pulmonology. Fara Arshad RN Hi Mr Gray, I am very sorry to note that your ct of the chest was suggestive of Interstitial lung disease, great on the right than left. I would like an livia apt, if he can get his family or himself to drive to [employer] or [employer] for Soon[facility] apt, would like for him to get that done. documented in this encounter [facility] 12-05-2021 Miscellaneous Notes Addended by: ONEL ZAVALA on: 12/05/2021 11:09 AM Modules accepted: Orders ummary: New ILD-Internal Interstitial Lung Disease Referral Intake Gagandeep Duarte [id number] December 05, 2021 10:43 AM Schedulers: --Please schedule patient with (ILD physicians: Dr. Arron Farr, Dr. Sky Amaya, Dr. Nelson Livingston, Dr. Adriane Erickson, Dr. Geovanny Subramanian, Dr. Emily Tanner, Dr. Cullen Hollis, Dr. Ned Garcia, Dr. Harvey Ying, Dr Nancy Sales, or Dr. Greg Sherman.) --Testing needed 1) [place]/[facility] Consult information: Referred by: Dr Stack Office name/city: [facility] Diagnosis: IPF CT chest:Yes date of last: 12/04/21 where was this performed?: [facility] Biopsy(Surgical or transbronchial): No type: date: where [...] Onel Zavala RN documented in this encounter [facility] 12-04-2021 History of Presen t illness [...] IV DATA: Not applicable SIGNED BY: RT Mariano(R) December 04, 2021 3:49 PM documented in this encounter [facility] 11-23-2021 Miscellaneous Notes Gagandeep Duarte was sent MyChart message and reminded to test INR today or as soon as possible. Deisy Naylor RPh Patient due to test INR today. Will continue to monitor for results. Deisy Naylor RPh documented in this encounter [facility] 11-19-2021 History of Presen t illness Narrative INSIGHT CDM TELEPHONIC OUTREACH Provider Action/FYI: Routed to Dr. Stack Call to Pt to verify CHF or other symptom status, instructed to contact PCP/ Cardiology related to edema. (Pt reported on 11/18/21 Insight questionnaire new or worsening swelling of legs, feet or ankles) Contact made with patient: No - Left message Divya my name is Makayla Maldonado RN your Pensionholder Information Clerk from the [facility] I am calling today for your [...] 2021 2:18 PM documented in this encounter [facility] 11-18-2021 History of Presen t illness Narrative INSIGHT CDM ESCALATION FYI: Attempted to contact pt for Insight escalation. Unable to contact, lm on vm. message sent. Question 11/18/2021 9:48 AM EDT [...] while lying flat? No Message received via: iHigh - No contact made with patient Left Message for PatientRebekah Stokes my name is Shayna Durpee RN from the [facility]. I am calling about your responses to our [employer] questionnaire. Sorry I am not able to speak with you. If you have a problem that needs to be addressed by your physician please contact your PCP office End Outreach documented in this encounter [facility] 11-05-2021 Miscellaneous Notes Pt notified and will have rx transferred to [place]. Jillian Gallardo Erin Quinonez APRN.[employer] JN Needs to take as prescribed twice a day. Thank you! Message text Patient calling and states he is currently in [place] and will be there for another week. [...] his Rx there. documented in this encounter [facility] 03-19-2021 Miscellaneous Notes Gagandeepadán Duarte was called and reminded to test INR today or as soon as possible. Patient was due to test INR today. Will continue to monitor for results. documented in this encounter [facility] documented as of this encounter (statuses as of 11/05/2021) [facility] History of Past illness Narrative* Problem [...] of this encounter (statuses as of 11/18/2021) [facility] N[facility]ative* Problem [...] of this encounter (statuses as of 11/19/2021) [facility]* Problem [...] of this encounter (statuses as of 11/19/2021) [facility] N[facility]* Problem [...] of this encounter (statuses as of 11/26/2021) [facility]* Problem [...] of this encounter (statuses as of 12/05/2021) [facility]* Problem [...] of this encounter (statuses as of 12/05/2021) [facility] N[facility]* Problem [...] of this encounter (statuses as of 12/05/2021) [facility] N[facility]* Problem [...] of this encounter (statuses as of 12/12/2021) [facility]* Problem [...] of this encounter (statuses as of 12/17/2021) [facility]* Problem [...] of this encounter (statuses as of 12/18/2021) [facility]* Problem [...] of this encounter (statuses as of 12/20/2021) [facility]* Problem [...] of this encounter (statuses as of 12/24/2021) [facility]* Problem [...] of this encounter (statuses as of 12/27/2021) [facility]* Problem [...] of this encounter (statuses as of 01/03/2022) [facility]* Problem [...] of this encounter (statuses as of 01/08/2022) [facility] N[facility]* Problem [...] of this encounter (statuses as of 01/09/2022) [facility] N[facility]* Problem [...] of this encounter (statuses as of 01/10/2022) [facility]* Problem [...] of this encounter (statuses as of 01/24/2022) [facility] N[facility]* Problem [...] of this encounter (statuses as of 01/31/2022) [facility]* Problem [...] of this encounter (statuses as of 01/31/2022) [facility]* Problem [...] of this encounter (statuses as of 02/06/2022) [facility]* Problem [...] of this encounter (statuses as of 02/12/2022) [facility]* Problem [...] of this encounter (statuses as of 02/23/2022) [facility] N[facility]* Problem [...] of this encounter (statuses as of 02/25/2022) [facility]* Problem [...] of this encounter (statuses as of 02/28/2022) [facility] N[facility]* Problem [...] been on 2.5 on all days except Frines and sat of 3.0. And for 22 [...] of this encounter (statuses as of 03/05/2022) [facility] N[facility]* Problem [...] of this encounter (statuses as of 03/06/2022) [facility]* Problem [...] of this encounter (statuses as of 03/08/2022) [facility] N[facility]* Problem [...] of this encounter (statuses as of 03/08/2022) [facility] N[facility]* Problem [...] of this encounter (statuses as of 03/08/2022) [facility]* Problem [...] of this encounter (statuses as of 03/08/2022) [facility]* Problem [...] of this encounter (statuses as of 03/08/2022) [facility]* Problem [...] of this encounter (statuses as of 03/08/2022) [facility]* Problem [...] of this encounter (statuses as of 03/11/2022) [facility]* Problem [...] of this encounter (statuses as of 03/11/2022) [facility]* Problem [...] of this encounter (statuses as of 03/18/2022) [facility]* Problem [...] of this encounter (statuses as of 03/21/2022) [facility]* Problem [...] of this encounter (statuses as of 03/21/2022) [facility]* Problem [...] of this encounter (statuses as of 03/21/2022) [facility]* Problem [...] of this encounter (statuses as of 03/21/2022) [facility]* Problem [...] of this encounter (statuses as of 03/22/2022) [facility]* Problem [...] of this encounter (statuses as of 03/26/2022) [facility]* Problem [...] of this encounter (statuses as of 03/27/2022) [facility]* Problem [...] of this encounter (statuses as of 03/29/2022) [facility]* Problem [...] of this encounter (statuses as of 04/01/2022) [facility]* Problem [...] of this encounter (statuses as of 04/01/2022) [facility]* Problem [...] of this encounter (statuses as of 04/16/2022) [facility]* Problem [...] of this encounter (statuses as of 04/17/2022) [facility]* Problem [...] of this encounter (statuses as of 04/19/2022) [facility]* Problem [...] of this encounter (statuses as of 04/22/2022) [facility]* Problem [...] of this encounter (statuses as of 04/26/2022) [facility]* Problem [...] of this encounter (statuses as of 05/02/2022) [facility]* Problem [...] of this encounter (statuses as of 05/02/2022) [facility]* Problem [...] of this encounter (statuses as of 05/14/2022) [facility]* Problem [...] of this encounter (statuses as of 05/15/2022) [facility]* Problem [...] of this encounter (statuses as of 05/16/2022) [facility]* Problem [...] of this encounter (statuses as of 05/27/2022) [facility]* Problem [...] of this encounter (statuses as of 05/28/2022) [facility]* Problem [...] of this encounter (statuses as of 05/29/2022) [facility]* Problem [...] of this encounter (statuses as of 05/31/2022) [facility]* Problem [...] of this encounter (statuses as of 06/05/2022) [facility]* Problem [...] of this encounter (statuses as of 06/06/2022) [facility]* Problem [...] of this encounter (statuses as of 06/07/2022) [facility]* Problem [...] of this encounter (statuses as of 06/17/2022) [facility]* Problem [...] of this encounter (statuses as of 07/01/2022) [facility]* Problem [...] of this encounter (statuses as of 07/08/2022) [facility]* Problem [...] of this encounter (statuses as of 07/18/2022) [facility]* Problem [...] of this encounter (statuses as of 08/14/2022) [facility]* Problem [...] of this encounter (statuses as of 08/15/2022) [facility]* Problem [...] of this encounter (statuses as of 08/15/2022) [facility]* Problem [...] of this encounter (statuses as of 08/21/2022) [facility]* Problem [...] of this encounter (statuses as of 08/21/2022) [facility]* Problem [...] of this encounter (statuses as of 08/22/2022) [facility]* Problem [...] of this encounter (statuses as of 08/22/2022) [facility]* Problem [...] of this encounter (statuses as of 08/26/2022) [facility]* Problem [...] of this encounter (statuses as of 08/29/2022) [facility]* Problem [...] of this encounter (statuses as of 08/30/2022) [facility]* Problem [...] of this encounter (statuses as of 09/09/2022) [facility]* Problem [...] of this encounter (statuses as of 09/12/2022) [facility]* Problem [...] of this encounter (statuses as of 09/13/2022) [facility]* Problem [...] of this encounter (statuses as of 10/04/2022) [facility]* Problem [...] of this encounter (statuses as of 10/09/2022) [facility]* Problem [...] of this encounter (statuses as of 10/14/2022) [facility]* Problem [...] of this encounter (statuses as of 10/15/2022) [facility]* Problem [...] of this encounter (statuses as of 10/17/2022) [facility]* Problem [...] of this encounter (statuses as of 10/21/2022) [facility]* Problem [...] of this encounter (statuses as of 10/22/2022) [facility]* Problem [...] of this encounter (statuses as of 10/22/2022) [facility]* Problem [...] of this encounter (statuses as of 11/04/2022) [facility]* Problem [...] of this encounter (statuses as of 11/04/2022) [facility]* Problem [...] of this encounter (statuses as of 11/12/2022) [facility]* Problem [...] of this encounter (statuses as of 11/21/2022) [facility]* Problem [...] of this encounter (statuses as of 11/23/2022) [facility]* Problem [...] of this encounter (statuses as of 11/25/2022) [facility]* Problem [...] of this encounter (statuses as of 11/25/2022) [facility]* Problem [...] of this encounter (statuses as of 12/13/2022) [facility]* Problem [...] of this encounter (statuses as of 12/13/2022) [facility]* Problem [...] of this encounter (statuses as of 12/17/2022) [facility]* Problem [...] of this encounter (statuses as of 12/17/2022) [facility]* Problem [...] of this encounter (statuses as of 01/08/2023) [facility]* Problem [...] of this encounter (statuses as of 01/10/2023) [facility]* Problem [...] of this encounter (statuses as of 01/14/2023) [facility] N[facility]* Problem [...] of this encounter (statuses as of 01/14/2023) [facility]* Problem [...] of this encounter (statuses as of 01/24/2023) [facility]* Problem [...] of this encounter (statuses as of 01/27/2023) [facility]* Problem [...] of this encounter (statuses as of 01/29/2023) [facility]* Problem [...] of this encounter (statuses as of 02/03/2023) [facility]* Problem [...] of this encounter (statuses as of 02/04/2023) [facility]* Problem [...] of this encounter (statuses as of 02/04/2023) [facility]* Problem [...] of this encounter (statuses as of 02/12/2023) [facility]* Problem [...] of this encounter (statuses as of 02/14/2023) [facility]* Problem [...] of this encounter (statuses as of 02/26/2023) [facility]* Problem [...] of this encounter (statuses as of 03/06/2023) [facility]* Problem [...] of this encounter (statuses as of 03/07/2023) [facility]* Problem [...] of this encounter (statuses as of 03/11/2023) [facility]* Problem [...] of this encounter (statuses as of 03/14/2023) [facility]* Problem [...] of this encounter (statuses as of 04/03/2023) [facility]* Problem [...] of this encounter (statuses as of 04/04/2023) [facility]* Problem [...] of this encounter (statuses as of 04/11/2023) [facility]* Problem [...] of this encounter (statuses as of 04/12/2023) [facility]* Problem [...] of this encounter (statuses as of 04/24/2023) [facility]* Problem [...] of this encounter (statuses as of 04/30/2023) [facility]* Problem [...] of this encounter (statuses as of 04/30/2023) [facility]* Problem [...] of this encounter (statuses as of 05/19/2023) [facility]* Problem [...] of this encounter (statuses as of 05/21/2023) [facility]* Problem [...] of this encounter (statuses as of 05/23/2023) [facility]* Problem [...] of this encounter (statuses as of 06/09/2023) [facility]* Problem [...] of this encounter (statuses as of 06/10/2023) [facility]* Problem [...] of this encounter (statuses as of 06/10/2023) [facility]* Problem [...] 08/29/2019 Overview: The patient has a [place] valve in 1989. On coumadin since. He [...] of this encounter (statuses as of 06/13/2023) [facility] N[facility]* Problem [...] of this encounter (statuses as of 06/24/2023) [facility]* Problem [...] of this encounter ([facility]es as [facility]2023) [facility] (shortness of breath) [facility]B (shortness of breath) Shortness [facility] breath [facility] Shortness of breath Restrictive lung disease Other diseases of lung, not elsewhere classified Abnormal PFT Nonspecific abnormal results of pulmonary system function study [facility] Pulmonary fibrosis (HCC)- Primary Postinflammatory pulmonary fibrosis [facility] Anticoagulant long-term use- Primary Long-term (current) use of anticoagulants S/P MVR (mitral valve replacement) Heart valve replaced by other means [facility] Diagnosis IPF (idiopathic pulmonary fibrosis) (HCC)- Primary Idiopathic pulmonary [facility] Diagnosis ILD (interstitial lung disease) (HCC)- Primary Postinflammatory pulmonary fibrosis [facility] Diagnosis Dizziness- Primary Dizziness and giddiness Elevated BUN Other abnormal blood chemistry [facility] Diagnosis S/P MVR (mitral valve replacement) Heart valve replaced by other means [facility] Diagnosis ILD (interstitial lung disease) (HCC) Postinflammatory pulmonary fibrosis Rash Rash and other nonspecific skin eruption Dysphagia, unspecified type [facility] Diagnosis Traumatic injury of head, initial encounter- Primary [facility]* Diagnosis ILD (interstitial lung disease) (HCC)- Primary Postinflammatory pulmonary fibrosis Rash Rash and other nonspecific skin eruption Dysphagia, unspecified type Alkaline phosphatase elevation Other nonspecific abnormal serum enzyme levels [facility] Diagnosis Laceration of other part of head without foreign body, subsequent encounter- Primary Visit for suture removal Encounter for removal of sutures [facility] Diagnosis ILD (interstitial lung disease) (HCC) Postinflammatory pulmonary fibrosis Rash Rash and other nonspecific skin eruption Dysphagia, unspecified type [facility] Diagnosis Rash and nonspecific skin eruption- Primary Rash and other nonspecific skin eruption ILD (interstitial lung disease) (HCC) Postinflammatory pulmonary fibrosis Rash Rash and other nonspecific skin eruption Dysphagia, unspecified type [facility] Diagnosis Elevated alkaline phosphatase level- Primary Other nonspecific abnormal serum enzyme levels [facility] Diagnosis Anxiety and depression Dysthymic disorder [facility] Diagnosis Anxiety and depression Dysthymic disorder [facility] Diagnosis IPF (idiopathic pulmonary fibrosis) (HCC)- Primary Idiopathic pulmonary fibrosis [facility] Diagnosis IPF (idiopathic pulmonary fibrosis) (HCC)- Primary Idiopathic pulmonary fibrosis [facility] Diagnosis Atrial fibrillation, unspecified type (HCC)- Primary [facility] Diagnosis Impacted cerumen of left ear- Primary Impacted cerumen [facility] Diagnosis Impacted cerumen of left ear- Primary Impacted cerumen [facility] Diagnosis Bilateral lower extremity edema Edema [facility]* Diagnosis APPOINTMENT CANCELLED- Primary [facility] Diagnosis S/P MVR (mitral valve replacement)- Primary Heart valve replaced by other means Chronic combined systolic and diastolic congestive heart failure (HCC) Chronic combined systolic and diastolic heart failure Cardiomyopathy, nonischemic (HCC) Other primary cardiomyopathies Permanent atrial fibrillation (HCC) Atrial fibrillation [facility] Diagnosis Elevated alkaline phosphatase level Other nonspecific abnormal serum enzyme levels [facility] Diagnosis S/P MVR (mitral valve replacement) Heart valve replaced by other means [facility] Diagnosis ILD (interstitial lung disease) (HCC)- Primary Postinflammatory pulmonary fibrosis Thrombocytopenia (HCC) Thrombocytopenia, unspecified Permanent atrial fibrillation (HCC) Atrial fibrillation Presence of cardiac pacemaker Cardiac pacemaker in situ Cardiomyopathy, nonischemic (HCC) Other primary cardiomyopathies [facility] Diagnosis Fall, initial encounter- Primary ILD (interstitial lung disease) (HCC) Postinflammatory pulmonary fibrosis Alkaline phosphatase elevation Other nonspecific abnormal serum enzyme levels [facility] Diagnosis Fall, initial encounter [facility]* Diagnosis Anticoagulant long-term use- Primary Long-term (current) use of anticoagulants S/P MVR (mitral valve replacement) Heart valve replaced by other means [facility]* Diagnosis Acute cough- Primary Other fatigue Acute non-recurrent sinusitis, unspecified location Chills Chills (without fever) Body aches Generalized pain Wheezing [facility]* Diagnosis Anticoagulant long-term use- Primary Long-term (current) use of anticoagulants S/P MVR (mitral valve replacement) Heart valve replaced by other means [facility]* Diagnosis Anxiety and depression Dysthymic disorder [facility]* Diagnosis Anticoagulant long-term use- Primary Long-term (current) use of anticoagulants S/P MVR (mitral valve replacement) Heart valve replaced by other means [facility] Diagnosis Mixed hyperlipidemia [facility]* Diagnosis S/P MVR (mitral valve replacement) Heart valve replaced by other means [facility]* Diagnosis Atrial fibrillation, unspecified type (HCC)- Primary [facility]* Diagnosis Permanent atrial fibrillation (HCC)- Primary [...] [facility]* Diagnosis Interstitial lung disease (HCC)- Primary Postinflammatory pulmonary fibrosis Pulmonary fibrosis (HCC) Postinflammatory pulmonary fibrosis Anxiety and depression Dysthymic disorder Thrombocytopenia (HCC) Thrombocytopenia, unspecified ILD (interstitial lung disease) (HCC) Postinflammatory pulmonary fibrosis Permanent atrial fibrillation (HCC) Atrial fibrillation [facility]* Diagnosis IPF (idiopathic pulmonary fibrosis) [...] [facility]* Diagnosis Mass of left lower extremity- Primary [facility]* Diagnosis IPF (idiopathic pulmonary fibrosis) (HCC)- Primary Idiopathic pulmonary fibrosis [facility]* Diagnosis Examination of participant in clinical trial- Primary [facility]* Diagnosis Chronic combined systolic and diastolic congestive heart failure (HCC)- Primary Chronic combined systolic and diastolic heart failure [facility]* Diagnosis Pulmonary fibrosis (HCC)- Primary Postinflammatory pulmonary fibrosis Anxiety and depression Dysthymic disorder Essential hypertension Unspecified essential hypertension [facility]* Diagnosis Interstitial lung disease (HCC)- Primary Postinflammatory pulmonary fibrosis Honeycomb lung Other diseases of lung, not elsewhere classified [facility]* Diagnosis Atrial fibrillation, unspecified type (HCC) [I48.91 (ICD-10-CM)]- Primary [facility] [...] [facility]* Diagnosis Other fatigue- Primary Increased thirst Polydipsia Abnormal glucose Other abnormal glucose Mixed hyperlipidemia Essential hypertension Unspecified essential hypertension [facility]* Diagnosis Interstitial pulmonary disease (HCC)- Primary Postinflammatory pulmonary fibrosis [facility]* Diagnosis Chronic combined systolic and diastolic congestive heart failure (HCC)- Primary Chronic combined systolic and diastolic heart failure Hypoxemia [facility]* Diagnosis Elevated alkaline phosphatase level- Primary Other nonspecific abnormal serum enzyme levels Elevated serum GGT level Other nonspecific abnormal serum enzyme levels [facility] [...] [facility]* Diagnosis Pulmonary fibrosis (HCC) Postinflammatory pulmonary fibrosis [facility]* Diagnosis Pulmonary fibrosis (HCC) Postinflammatory pulmonary fibrosis [facility]* Diagnosis Chronic combined systolic and diastolic congestive heart failure (HCC)- Primary Chronic combined systolic and diastolic heart failure [facility] Diagnosis Chronic combined systolic and diastolic congestive heart failure (HCC)- Primary Chronic combined systolic and diastolic heart failure Elevated alkaline phosphatase level Other nonspecific abnormal serum enzyme levels Pulmonary fibrosis (HCC) Postinflammatory pulmonary fibrosis Permanent atrial fibrillation (HCC) Atrial fibrillation Other fatigue documented in this encounter [facility]* Diagnosis Anticoagulant long-term use- Primary Long-term (current) use of anticoagulants S/P MVR (mitral valve replacement) Heart valve replaced by other means documented in this encounter [facility] note* Diagnosis Elevated alkaline phosphatase level- Primary Other nonspecific abnormal serum enzyme levels documented in this encounter [facility] note* Diagnosis Gross hematuria- Primary Hematuria, unspecified type documented in this encounter [facility] note* Diagnosis Anticoagulant long-term use- Primary Long-term (current) use of anticoagulants S/P MVR (mitral valve replacement) Heart valve replaced by other means documented in this encounter [facility] note* Diagnosis Elevated alkaline phosphatase level- Primary Other nonspecific abnormal serum enzyme levels Elevated serum GGT level Other nonspecific abnormal serum enzyme levels Chronic eczematous otitis externa of both ears Hematuria, unspecified type documented in this encounter [facility]* Diagnosis Anticoagulant long-term use- Primary Long-term (current) use of anticoagulants S/P MVR (mitral valve replacement) Heart valve replaced by other means documented in this encounter [facility] for referral (narrative)* Outpatient Procedure (Routine) - Pending Review Specialty Diagnoses / Procedures Referred By Malick corrigan Referred To [facility] Diagnoses Pulmonary fibrosis (HCC) Procedures LUNG DIFFUSION CAPACITY (DLCO) DIFFUSING CAPACITY Erin Lowe APRN.CNP [address] [place] [address] [facility] [address] [place] [address] Referral ID Status Reason Start Date Expiration Date Visits Requested Visits Authorized [id number] Pending Review Auto-Generat ed Referral 12/05/2021 01/04/2023 1 1 * Outpatient Procedure (Routine) - Pending Review Specialty Diagnoses / Procedures Referred By Malick corrigan Referred [facility] Diagnoses Pulmonary fibrosis (HCC) Procedures SPIROMETRY WITH DILATOR IF OBSTRUCTED BRNCDILAT RSPSE SPMTRY PRE&POST-BRNCDILAT ADMN Erin Lowe APRN.CNP [address] [place] [id number] [place] [address] Referral ID Status Reason Start Date Expiration Date Visits Requested Visits Authorized [id number] Pending Review Auto-Generat ed Referral 12/05/2021 01/04/2023 1 1 [facility] for referral (narrative)* Diagnostic Procedure Only (Routine) - Closed Specialty Diagnoses / Procedures Referred By Contac t Referred To Contact XR IMAGING Diagnoses ILD (interstitial lung disease) (HCC) Rash Dysphagia, unspecified type Procedures XR ESOPHAGRAM RADIOLOGIC EXAM ESOPHAGUS SINGLE CONTRAST STUDY Natalia Gaffney MD [address] [place] [address] Xr Imaging Referral ID Status Reason Start Date Expiration Date V isits Requested Visits Authorized [id number] Closed Auto-Generate d Referral 01/17/2022 02/16/2023 1 1 [facility] for referral (narrative)* Outpatient Procedure (Routine) - Pending Review Specialty Diagnoses / Procedures Referred By Contac t Referred To Contact [facility] Diagnoses IPF (idiopathic pulmonary fibrosis) (HCC) Procedures SIX MINUTE WALK CARDIOPULMONARY EXERCISE STRESS Nancy Sales MD [facility] [place] [address] [place] [address] Referral ID Status Reason Start Date Expiration Date Visits Requested Visits Authorized [id number] Pending Review Auto-Generat ed Referral 09/21/2022 04/20/2023 1 1 * Outpatient Procedure (Routine) - Pending Review Specialty Diagnoses / Procedures Referred By Contac t Referred To Contact [facility] Diagnoses IPF (idiopathic pulmonary fibrosis) (HCC) Procedures SPIROMETRY WITH DILATOR IF OBSTRUCTED BRNCDILAT RSPSE SPMTRY PRE&POST-BRNCDILAT ADMN Nancy Sales MD [address] [place] [address] [place] [address] Referral ID Status Reason Start Date Expiration Date Visits Requested Visits Authorized [id number] Pending Review Auto-Generat ed Referral 09/21/2022 04/20/2023 1 1 * Outpatient Procedure (Routine) - Pending Review Specialty Diagnoses / Procedures Referred By Contac t Referred To [facility] Diagnoses IPF (idiopathic pulmonary fibrosis) (HCC) Procedures LUNG DIFFUSION CAPACITY (DLCO) DIFFUSING CAPACITY Nancy Sales MD [address] [facility] [place] [address] [place] [address] Referral ID Status Reason Start Date Expiration Date Visits Requested Visits Authorized [id number] Pending Review Auto-Generat ed Referral 09/21/2022 04/20/2023 1 1 [facility] for referral (narrative)* Diagnostic Procedure Only (Routine) - Closed Specialty Diagnoses / Procedures Referred By Contac t Referred To Contact XR IMAGING Diagnoses Fall, initial encounter Procedures XR THORACIC GENERAL 3V AP/LAT/SWIMMERS RADEX SPINE THORACIC 3 VIEWS Natalia Gaffney MD [address] [facility] [place] [address] Xr Imaging Referral ID Status Reason Start Date Expiration Date V isits Requested Visits Authorized [id number] Closed Auto-Generate d Referral 05/14/2022 06/13/2023 1 1 * Diagnostic Procedure Only (Routine) - Closed Specialty Diagnoses / Procedures Referred By Contac t Referred To Contact XR IMAGING Diagnoses Fall, initial encounter Procedures XR LUMBAR GENERAL 3V AP/LAT/L5-S1 RADEX SPINE LUMBOSACRAL 2/3 VIEWS Natalia Gaffney MD [address] [facility] [place] [id number] Xr Imaging Referral ID Status Reason Start Date Expiration Date V isits Requested Visits Authorized [id number] Closed Auto-Generate d Referral 05/14/2022 06/13/2023 1 1 [facility] for referral (narrative)* Diagnostic Procedure Only (Routine) - Closed Specialty Diagnoses / Procedures Referred By Contac t Referred To Contact XR IMAGING Diagnoses Fall, initial encounter Procedures XR THORACIC GENERAL 3V AP/LAT/SWIMMERS RADEX SPINE THORACIC 3 VIEWS Natalia Gaffney MD [address] [place] [address] Xr Imaging Referral ID Status Reason Start Date Expiration Date V isits Requested Visits Authorized [id number] Closed Auto-Generate d Referral 05/14/2022 06/13/2023 1 1 * Diagnostic Procedure Only (Routine) - Closed Specialty Diagnoses / Procedures Referred By Contac t Referred To Contact XR IMAGING Diagnoses Fall, initial encounter Procedures XR LUMBAR GENERAL 3V AP/LAT/L5-S1 RADEX SPINE LUMBOSACRAL 2/3 VIEWS Natalia Gaffney MD [address] [place] [address] Xr Imaging Referral ID Status Reason Start Date Expiration Date V isits Requested Visits Authorized [id number] Closed Auto-Generate d Referral 05/14/2022 06/13/2023 1 1 [facility] for referral (narrative)* Diagnostic Procedure Only (Routine) - Authorized Specialty Diagnoses / Procedures Referred By Contac t Referred To Contact US IMAGING Diagnoses Mass of left lower extremity Procedures US EXTREMITY MASS/FLUID COLLECTION LT Colby, Neeta, SERGER.RUG HOOKER HAND [address] [place] [address] Us Imaging Referral ID Status Reason Start Date Expiration Date Visits Requested Visits Authorized [id number] Authorized Auto-Generat ed Referral 10/14/2022 11/13/2023 1 1 [facility] for referral (narrative)* Diagnostic Procedure Only (Routine) - Authorized Specialty Diagnoses / Procedures Referred By Contac t Referred To Contact US IMAGING Diagnoses Elevated alkaline phosphatase level Elevated serum GGT level Procedures US ABD RIGHT UPPER QUADRANT US ABDOMINAL REAL TIME W/IMAGE LIMITED Neeta Bowman APRN.RUG HOOKER HAND [address] [place] [address] Us Imaging Referral ID Status Reason Start Date Expiration Date Visits Requested Visits Authorized [id number] Authorized Auto-Generat ed Referral 02/04/2023 03/05/2024 1 1 [facility] for visit Narrative* Diagnostic Procedure Only (Routine) - Closed Specialty Diagnoses / Procedures Referred By Contac t Referred To Contact XR IMAGING Diagnoses ILD (interstitial lung disease) (HCC) Rash Dysphagia, unspecified type Procedures XR ESOPHAGRAM RADIOLOGIC EXAM ESOPHAGUS SINGLE CONTRAST STUDY Natalia Gaffney MD [address] [facility] [address] [place] [address] Xr Imaging Referral ID Status Reason Start Date Expiration Date V isits Requested Visits Authorized [id number] Closed Auto-Generate d Referral 01/17/2022 02/16/2023 1 1 [facility] Summary Purpose Family History No Family History Records FoundNo Family History Records FoundNo Family History Records FoundNo Family History Records FoundNo Family History Records FoundNo Family History Records FoundNo Family History Records Found Advance Directives No Advanced Directives Records FoundDocuments on File Type Date Recorded 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 Advance Directive(s) 05/18/2020 9:18 AM Advance Directive(s) 04/28/2020 7:33 AM Advance Directive(s) 11/17/2019 1:52 PM Advance Directive(s) 12/05/2016 11:06 AM Documents on File Type Date Recorded 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 Advance Directive(s) 05/18/2020 9:18 AM Advance Directive(s) 04/28/2020 7:33 AM Advance Directive(s) 11/17/2019 1:52 PM Advance Directive(s) 12/05/2016 11:06 AM Documents on File Type Date Recorded 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 Advance Directive(s) 11/17/2019 1:52 PM Advance Directive(s) 12/05/2016 11:06 AM Documents on File Type Date Recorded 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 Advance Directive(s) 11/17/2019 1:52 PM Advance Directive(s) 12/05/2016 11:06 AM Reason for Referral Specialty Diagnoses / Procedures Referred By Contac t Referred To Contact CT IMAGING Diagnoses Shortness of breath Restrictive lung disease Abnormal PFT Procedures CT CHEST WO IVCON DIAGNOSTIC COMPUTED TOMOGRAPHY THORAX W/O CNTRST Macey Stack MD [address] [place], [place] [id number] Ct Imaging Referral ID Status Reason Start Date Expiration Date V isits Requested Visits Authorized [id number] Closed Auto-Generate d Referral 11/22/2021 12/22/2022 1 1 Specialty Diagnoses / Procedures Referred By Contac t Referred To Contact Diagnoses Interstitial lung disease (HCC) Honeycomb lung IPF (idiopathic pulmonary fibrosis) (HCC) Nancy Sales MD [address] [place] [address] Referral ID Status Reason Start Date Expiration Date V isits Requested Visits Authorized [id number] Pending Review 1 1 Specialty Diagnoses / Procedures Referred By Contac t Referred [facility] Contact [facility] Diagnoses Interstitial lung disease (HCC) Honeycomb lung IPF (idiopathic pulmonary fibrosis) (HCC) Procedures SIX MINUTE WALK CARDIOPULMONARY EXERCISE STRESS Nancy Sales MD [address] [place] [address] [facility] [address] [place] [address] Referral ID Status Reason Start Date Expiration Date Visits Requested Visits Authorized [id number] Authorized Auto-Generat ed Referral 12/17/2021 01/16/2023 1 1 Specialty Diagnoses / Procedures Referred By Contac t Referred To Contact Rheumatology Diagnoses ILD (interstitial lung disease) (HCC) Procedures CONSULT TO RHEUM/IMMUN DISEASE OFFICE/OUTPATIENT [facility] 60-74 MINUTES Nancy Sales MD [address] [place] [address] Referral ID Status Reason Start Date Expiration Date Visits Requested Visits Authorized [id number] Authorized PCP Requested Referral 01/03/2022 01/03/2023 1 1 Specialty Diagnoses / Procedures Referred By Contac t Referred To Contact CT IMAGING Diagnoses ILD (interstitial lung disease) (HCC) Rash Dysphagia, unspecified type Procedures CT ABD/PEL W IVCON CT ABD & PELVIS W/CONTRAST Natalia Gaffney MD [address] [place] [address] Ct Imaging Referral ID Status Reason Start Date Expiration Date Visits Requested Visits Authorized [id number] Pending Review Auto-Generat ed Referral 03/05/2022 04/04/2023 1 1 Referral ID Status Reason Start Date Expiration Date V isits Requested Visits Authorized [id number] Closed Auto-Generate d Referral 03/05/2022 04/04/2023 1 1 Specialty Diagnoses / Procedures Referred By Contac t Referred To Contact Diagnoses Elevated alkaline phosphatase level Procedures CONSULT TO HEPATOLOGY OFFICE/[facility]74 [facility]UTES Natalia Gaffney MD [address] [address] [facility] [place] [address] Referral ID Status Reason Start Date Expiration Date Visits Requested Visits Authorized [id number] Authorized PCP Requested Referral 03/08/2022 03/08/2023 1 1 Specialty Diagnoses / Procedures Referred By Contac t Referred To Contact CT IMAGING Diagnoses IPF (idiopathic pulmonary fibrosis) (HCC) Interstitial pulmonary disease (HCC) Procedures CT CHEST WO IVCON DIAGNOSTIC COMPUTED TOMOGRAPHY THORAX W/O CNTRST Nancy Sales MD [address] [address] [place] [address] Ct Imaging Referral ID Status Reason Start Date Expiration Date Visits Requested Visits Authorized [id number] Pending Review Auto-Generat ed Referral 11/24/2022 09/25/2023 1 1 Specialty Diagnoses / Procedures Referred By Contac t Referred [facility] Diagnoses IPF (idiopathic pulmonary fibrosis) (HCC) Procedures SIX MINUTE WALK CARDIOPULMONARY EXERCISE STRESS Nancy Sales MD [address] [place] [address] [address] Referral ID Status Reason Start Date Expiration Date Visits Requested Visits Authorized [id number] Pending Review Auto-Generat ed Referral 11/24/2022 09/25/2023 1 1 Specialty Diagnoses / Procedures Referred By Contac t Referred To Contact [facility] Diagnoses IPF (idiopathic pulmonary fibrosis) [facility] Procedures SPIROMETRY WITH DILATOR IF OBSTRUCTED BRNCDILAT RSPSE SPMTRY PRE&[place] [address] [place] [address] [address] Referral ID Status Reason Start Date Expiration Date Visits Requested Visits Authorized [id number] Pending Review Auto-Generat ed Referral 11/24/2022 09/25/2023 1 1 Specialty Diagnoses / Procedures Referred By Contac t Referred To Contact [facility] Diagnoses IPF (idiopathic pulmonary fibrosis) ([facility] Procedures LUNG DIFFUSION CAPACITY (DLCO) DIFFUSING CAPACITY Nancy Sales MD [address] [place] [address] [address] Referral ID Status Reason Start Date Expiration Date Visits Requested Visits Authorized [id number] Pending Review Auto-Generat ed Referral 11/24/2022 09/25/2023 1 1 Specialty Diagnoses / Procedures Referred By Contac t Referred To Contact Pulmonary and Critical [facility] Diagnoses Pulmonary fibrosis (HCC) Procedures CONSULT TO PULM/CRITICAL CARE OFFICE[facility] 60-74 [facility]UTES Macey Stack MD [address] [place] [address] Referral ID Status Reason Start Date Expiration Date Visits Requested Visits Authorized [id number] Pending Review PCP Requested Referral 11/22/2022 11/22/2023 1 1 Specialty Diagnoses / Procedures Referred By Contac t Referred To Contact Pulmonary and Critical Care Medicine Diagnoses Interstitial lung disease (HCC) Honeycomb lung Procedures CONSULT TO PULM[facility]CRITICAL CARE OFFICE[facility] 60-74 MINUTES Macey Stack MD [address] [place] [address] Referral ID Status Reason Start Date Expiration Date V isits Requested Visits Authorized [id number] Closed PCP Requested Referral 12/04/2021 12/04/2022 1 1 Specialty Diagnoses / Procedures Referred By Contac t Referred To Contact CT IMAGING Diagnoses Interstitial pulmonary disease (HCC) Procedures CT CHEST WO IVCON DIAGNOSTIC COMPUTED TOMOGRAPHY THORAX W/O CNTRST Nancy Sales MD [address] [place] [address] Ct Imaging Referral ID Status Reason Start Date Expiration Date Visits Requested Visits Authorized [id number] Authorized Auto-Generat ed Referral 01/24/2023 02/23/2024 1 1 Specialty Diagnoses / Procedures Referred By Contac t Referred To Contact CT IMAGING Diagnoses Gross hematuria Procedures CT UROGRAM WO/W IVCON CT ABD & PELVIS W/O CONTRST 1+ BODY Isaiah Monsivais PA-C [address] [place] [address] Ct Imaging [place] [address] Referral ID Status Reason Start Date Expiration Date Visits Requested Visits Authorized [id number] Authorized Auto-Generat ed Referral 04/29/2023 05/28/2024 1 1 Specialty Diagnoses / Procedures Referred By Contac t Referred To Contact Gastroenterology Diagnoses Elevated alkaline phosphatase level Elevated serum GGT level Procedures CONSULT TO GASTROENTEROLOGY OFFICE[facility] 60-74 MINUTES Mary Mckeon PA-C [address] [place] [address] Referral ID Status Reason Start Date Expiration Date Visits Requested Visits Authorized [id number] Pending Review PCP Requested Referral 05/19/2024 1 [...] DATE CREATED AUTHOR AUTHOR'S ORGANIZ ATION 07/21/2020 [facility] DATE CREATED AUTHOR AUTHOR'S ORGANIZ ATION 10/10/2020 Ward Sauceda [facility] DATE CREATED AUTHOR AUTHOR'S ORGANIZ ATION 04/15/2021 [facility] DATE CREATED AUTHOR AUTHOR'S ORGANIZ ATION 02/28/2022 [facility] DATE CREATED AUTHOR AUTHOR'S ORGANIZ ATION 12/16/2022 [facility] DATE CREATED AUTHOR AUTHOR'S ORGANIZ ATION 08/17/2023 [facility] Source Comments (unrecognize d section and content) In the event this informatio n is protected by the Federal Confidentiality of Alcohol and Drug Abuse Patient Records regulations: The Federal rules restrict any use of the information to criminally investigate or prosecute any alcohol or drug abuse patient.[facility] the event this information is protected by the Federal Confidentiality of Alcohol and Drug Abuse Patient Records regulations: The Federal rules restrict any use of the information to criminally investigate or prosecute any alcohol or drug abuse patient.[facility] HospitalIn the event this information is protected by the Federal Confidentiality of Alcohol and Drug Abuse Patient Records regulations: The Federal rules restrict any use of the information to criminally investigate or prosecute any alcohol or drug abuse patient.[facility] HospitalIn the event this information is protected by the Federal Confidentiality of Alcohol and Drug Abuse Patient Records regulations: The Federal rules restrict any use of the information to criminally investigate or prosecute any alcohol or drug abuse patient.[facility] HospitalIn the event this information is protected by the Federal Confidentiality of Alcohol and Drug Abuse Patient Records regulations: The Federal rules restrict any use of the information to criminally investigate or prosecute any alcohol or drug abuse patient.[facility] HospitalIn the event this information is protected by the Federal Confidentiality of Alcohol and Drug Abuse Patient Records regulations: The Federal rules restrict any use of the information to criminally investigate or prosecute any alcohol or drug abuse patient.[facility] HospitalIn the event this information is protected by the Federal Confidentiality of Alcohol and Drug Abuse Patient Records regulations: The Federal rules restrict any use of the information to criminally investigate or prosecute any alcohol or drug abuse patient.[facility] HospitalIn the event this information is protected by the Federal Confidentiality of Alcohol and Drug Abuse Patient Records regulations: The Federal rules restrict any use of the information to criminally investigate or prosecute any alcohol or drug abuse patient.[facility] HospitalIn the event this information is protected by the Federal Confidentiality of Alcohol and Drug Abuse Patient Records regulations: The Federal rules restrict any use of the information to criminally investigate or prosecute any alcohol or drug abuse patient.[facility] HospitalIn the event this information is protected by the Federal Confidentiality of Alcohol and Drug Abuse Patient Records regulations: The Federal rules restrict any use of the information to criminally investigate or prosecute any alcohol or drug abuse patient.[facility] HospitalIn the event this information is protected by the Federal Confidentiality of Alcohol and Drug Abuse Patient Records regulations: The Federal rules restrict any use of the information to criminally investigate or prosecute any alcohol or drug abuse patient.[facility] HospitalIn the event this information is protected by the Federal Confidentiality of Alcohol and Drug Abuse Patient Records regulations: The Federal rules restrict any use of the information to criminally investigate or prosecute any alcohol or drug abuse patient.[facility] HospitalIn the event this information is protected by the Federal Confidentiality of Alcohol and Drug Abuse Patient Records regulations: The Federal rules restrict any use of the information to criminally investigate or prosecute any alcohol or drug abuse patient.[facility] HospitalIn the event this information is protected by the Federal Confidentiality of Alcohol and Drug Abuse Patient Records regulations: The Federal rules restrict any use of the information to criminally investigate or prosecute any alcohol or drug abuse patient.[facility] HospitalIn the event this information is protected by the Federal Confidentiality of Alcohol and Drug Abuse Patient Records regulations: The Federal rules restrict any use of the information to criminally investigate or prosecute any alcohol or drug abuse patient.[facility] HospitalIn the event this information is protected by the Federal Confidentiality of Alcohol and Drug Abuse Patient Records regulations: The Federal rules restrict any use of the information to criminally investigate or prosecute any alcohol or drug abuse patient.[facility] HospitalIn the event this information is protected by the Federal Confidentiality of Alcohol and Drug Abuse Patient Records regulations: The Federal rules restrict any use of the information to criminally investigate or prosecute any alcohol or drug abuse patient.[facility] HospitalIn the event this information is protected by the Federal Confidentiality of Alcohol and Drug Abuse Patient Records regulations: The Federal rules restrict any use of the information to criminally investigate or prosecute any alcohol or drug abuse patient.[facility] HospitalIn the event this information is protected by the Federal Confidentiality of Alcohol and Drug Abuse Patient Records regulations: The Federal rules restrict any use of the information to criminally investigate or prosecute any alcohol or drug abuse patient.[facility] HospitalIn the event this information is protected by the Federal Confidentiality of Alcohol and Drug Abuse Patient Records regulations: The Federal rules restrict any use of the information to criminally investigate or prosecute any alcohol or drug abuse patient.[facility] HospitalIn the event this information is protected by the Federal Confidentiality of Alcohol and Drug Abuse Patient Records regulations: The Federal rules restrict any use of the information to criminally investigate or prosecute any alcohol or drug abuse patient.[facility] HospitalIn the event this information is protected by the Federal Confidentiality of Alcohol and Drug Abuse Patient Records regulations: The Federal rules restrict any use of the information to criminally investigate or prosecute any alcohol or drug abuse patient.[facility] HospitalIn the event this information is protected by the Federal Confidentiality of Alcohol and Drug Abuse Patient Records regulations: The Federal rules restrict any use of the information to criminally investigate or prosecute any alcohol or drug abuse patient.[facility] HospitalIn the event this information is protected by the Federal Confidentiality of Alcohol and Drug Abuse Patient Records regulations: The Federal rules restrict any use of the information to criminally investigate or prosecute any alcohol or drug abuse patient.[facility] HospitalIn the event this information is protected by the Federal Confidentiality of Alcohol and Drug Abuse Patient Records regulations: The Federal rules restrict any use of the information to criminally investigate or prosecute any alcohol or drug abuse patient.[facility] HospitalIn the event this information is protected by the Federal Confidentiality of Alcohol and Drug Abuse Patient Records regulations: The Federal rules restrict any use of the information to criminally investigate or prosecute any alcohol or drug abuse patient.[facility] HospitalIn the event this information is protected by the Federal Confidentiality of Alcohol and Drug Abuse Patient Records regulations: The Federal rules restrict any use of the information to criminally investigate or prosecute any alcohol or drug abuse patient.[facility] HospitalIn the event this information is protected by the Federal Confidentiality of Alcohol and Drug Abuse Patient Records regulations: The Federal rules restrict any use of the information to criminally investigate or prosecute any alcohol or drug abuse patient.[facility] HospitalIn the event this information is protected by the Federal Confidentiality of Alcohol and Drug Abuse Patient Records regulations: The Federal rules restrict any use of the information to criminally investigate or prosecute any alcohol or drug abuse patient.[facility] HospitalIn the event this information is protected by the Federal Confidentiality of Alcohol and Drug Abuse Patient Records regulations: The Federal rules restrict any use of the information to criminally investigate or prosecute any alcohol or drug abuse patient.[facility] HospitalIn the event this information is protected by the Federal Confidentiality of Alcohol and Drug Abuse Patient Records regulations: The Federal rules restrict any use of the information to criminally investigate or prosecute any alcohol or drug abuse patient.[facility] the event this information is protected by the Federal Confidentiality of Alcohol and Drug Abuse Patient Records regulations: The Federal rules restrict any use of the information to criminally investigate or prosecute any alcohol or drug abuse patient.[facility] HospitalIn the event this information is protected by the Federal Confidentiality of Alcohol and Drug Abuse Patient Records regulations: The Federal rules restrict any use of the information to criminally investigate or prosecute any alcohol or drug abuse patient.[facility] HospitalIn the event this information is protected [...] or prosecute any alcohol or drug abuse patient.[facility] HospitalIn the event this information is protected by the Federal Confidentiality of Alcohol and Drug Abuse Patient Records regulations: The Federal rules restrict any use of the information to criminally investigate or prosecute any alcohol or drug abuse patient.[facility] HospitalIn the event this information is protected by the Federal Confidentiality of Alcohol and Drug Abuse Patient Records regulations: The Federal rules restrict any use of the information to criminally investigate or prosecute any alcohol or drug abuse patient.[facility] HospitalIn the event this information is protected by the Federal Confidentiality of Alcohol and Drug Abuse Patient Records regulations: The Federal rules restrict any use of the information to criminally investigate or prosecute any alcohol or drug abuse patient.[facility] HospitalIn the event this information is protected by the Federal Confidentiality of Alcohol and Drug Abuse Patient Records regulations: The Federal rules restrict any use of the information to criminally investigate or prosecute any alcohol or drug abuse patient.[facility] HospitalIn the event this information is protected by the Federal Confidentiality of Alcohol and Drug Abuse Patient Records regulations: The Federal rules restrict any use of the information to criminally investigate or prosecute any alcohol or drug abuse patient.[facility] HospitalIn the event this information is protected by the Federal Confidentiality of Alcohol and Drug Abuse Patient Records regulations: The Federal rules restrict any use of the information to criminally investigate or prosecute any alcohol or drug abuse patient.[facility] HospitalIn the event this information is protected by the Federal Confidentiality of Alcohol and Drug Abuse Patient Records regulations: The Federal rules restrict any use of the information to criminally investigate or prosecute any alcohol or drug abuse patient.[facility] HospitalIn the event this information is protected by the Federal Confidentiality of Alcohol and Drug Abuse Patient Records regulations: The Federal rules restrict any use of the information to criminally investigate or prosecute any alcohol or drug abuse patient.[facility] HospitalIn the event this information is protected by the Federal Confidentiality of Alcohol and Drug Abuse Patient Records regulations: The Federal rules restrict any use of the information to criminally investigate or prosecute any alcohol or drug abuse patient.[facility] HospitalIn the event this information is protected by the Federal Confidentiality of Alcohol and Drug Abuse Patient Records regulations: The Federal rules restrict any use of the information to criminally investigate or prosecute any alcohol or drug abuse patient.[facility] HospitalIn the event this information is protected by the Federal Confidentiality of Alcohol and Drug Abuse Patient Records regulations: The Federal rules restrict any use of the information to criminally investigate or prosecute any alcohol or drug abuse patient.[facility] HospitalIn the event this information is protected by the Federal Confidentiality of Alcohol and Drug Abuse Patient Records regulations: The Federal rules restrict any use of the information to criminally investigate or prosecute any alcohol or drug abuse patient.[facility] HospitalIn the event this information is protected by the Federal Confidentiality of Alcohol and Drug Abuse Patient Records regulations: The Federal rules restrict any use of the information to criminally investigate or prosecute any alcohol or drug abuse patient.[facility] HospitalIn the event this information is protected by the Federal Confidentiality of Alcohol and Drug Abuse Patient Records regulations: The Federal rules restrict any use of the information to criminally investigate or prosecute any alcohol or drug abuse patient.[facility] HospitalIn the event this information is protected by the Federal Confidentiality of Alcohol and Drug Abuse Patient Records regulations: The Federal rules restrict any use of the information to criminally investigate or prosecute any alcohol or drug abuse patient.[facility] HospitalIn the event this information is protected by the Federal Confidentiality of Alcohol and Drug Abuse Patient Records regulations: The Federal rules restrict any use of the information to criminally investigate or prosecute any alcohol or drug abuse patient.[facility] HospitalIn the event this information is protected by the Federal Confidentiality of Alcohol and Drug Abuse Patient Records regulations: The Federal rules restrict any use of the information to criminally investigate or prosecute any alcohol or drug abuse patient.[facility] HospitalIn the event this information is protected by the Federal Confidentiality of Alcohol and Drug Abuse Patient Records regulations: The Federal rules restrict any use of the information to criminally investigate or prosecute any alcohol or drug abuse patient.[facility] HospitalIn the event this information is protected by the Federal Confidentiality of Alcohol and Drug Abuse Patient Records regulations: The Federal rules restrict any use of the information to criminally investigate or prosecute any alcohol or drug abuse patient.[facility] HospitalIn the event this information is protected by the Federal Confidentiality of Alcohol and Drug Abuse Patient Records regulations: The Federal rules restrict any use of the information to criminally investigate or prosecute any alcohol or drug abuse patient.[facility] HospitalIn the event this information is protected by the Federal Confidentiality of Alcohol and Drug Abuse Patient Records regulations: The Federal rules restrict any use of the information to criminally investigate or prosecute any alcohol or drug abuse patient.[facility] HospitalIn the event this information is protected by the Federal Confidentiality of Alcohol and Drug Abuse Patient Records regulations: The Federal rules restrict any use of the information to criminally investigate or prosecute any alcohol or drug abuse patient.[facility] HospitalIn the event this information is protected by the Federal Confidentiality of Alcohol and Drug Abuse Patient Records regulations: The Federal rules restrict any use of the information to criminally investigate or prosecute any alcohol or drug abuse patient.[facility] HospitalIn the event this information is protected by the Federal Confidentiality of Alcohol and Drug Abuse Patient Records regulations: The Federal rules restrict any use of the information to criminally investigate or prosecute any alcohol or drug abuse patient.[facility] HospitalIn the event this information is protected by the Federal Confidentiality of Alcohol and Drug Abuse Patient Records regulations: The Federal rules restrict any use of the information to criminally investigate or prosecute any alcohol or drug abuse patient.[facility] HospitalIn the event this information is protected by the Federal Confidentiality of Alcohol and Drug Abuse Patient Records regulations: The Federal rules restrict any use of the information to criminally investigate or prosecute any alcohol or drug abuse patient.[facility] HospitalIn the event this information is protected by the Federal Confidentiality of Alcohol and Drug Abuse Patient Records regulations: The Federal rules restrict any use of the information to criminally investigate or prosecute any alcohol or drug abuse patient.[facility] HospitalIn the event this information is protected by the Federal Confidentiality of Alcohol and Drug Abuse Patient Records regulations: The Federal rules restrict any use of the information to criminally investigate or prosecute any alcohol or drug abuse patient.[facility] HospitalIn the event this information is protected by the Federal Confidentiality of Alcohol and Drug Abuse Patient Records regulations: The Federal rules restrict any use of the information to criminally investigate or prosecute any alcohol or drug abuse patient.[facility] HospitalIn the event this information is protected by the Federal Confidentiality of Alcohol and Drug Abuse Patient Records regulations: The Federal rules restrict any use of the information to criminally investigate or prosecute any alcohol or drug abuse patient.[facility] HospitalIn the event this information is protected by the Federal Confidentiality of Alcohol and Drug Abuse Patient Records regulations: The Federal rules restrict any use of the information to criminally investigate or prosecute any alcohol or drug abuse patient.[facility] HospitalIn the event this information is protected by the Federal Confidentiality of Alcohol and Drug Abuse Patient Records regulations: The Federal rules restrict any use of the information to criminally investigate or prosecute any alcohol or drug abuse patient.[facility] HospitalIn the event this information is protected by the Federal Confidentiality of Alcohol and Drug Abuse Patient Records regulations: The Federal rules restrict any use of the information to criminally investigate or prosecute any alcohol or drug abuse patient.[facility] HospitalIn the event this information is protected by the Federal Confidentiality of Alcohol and Drug Abuse Patient Records regulations: The Federal rules restrict any use of the information to criminally investigate or prosecute any alcohol or drug abuse patient.[facility] HospitalIn the event this information is protected by the Federal Confidentiality of Alcohol and Drug Abuse Patient Records regulations: The Federal rules restrict any use of the information to criminally investigate or prosecute any alcohol or drug abuse patient.[facility] HospitalIn the event this information is protected by the Federal Confidentiality of Alcohol and Drug Abuse Patient Records regulations: The Federal rules restrict any use of the information to criminally investigate or prosecute any alcohol or drug abuse patient.[facility] HospitalIn the event this information is protected by the Federal Confidentiality of Alcohol and Drug Abuse Patient Records regulations: The Federal rules restrict any use of the information to criminally investigate or prosecute any alcohol or drug abuse patient.[facility] HospitalIn the event this information is protected by the Federal Confidentiality of Alcohol and Drug Abuse Patient Records regulations: The Federal rules restrict any use of the information to criminally investigate or prosecute any alcohol or drug abuse patient.[facility] HospitalIn the event this information is protected by the Federal Confidentiality of Alcohol and Drug Abuse Patient Records regulations: The Federal rules restrict any use of the information to criminally investigate or prosecute any alcohol or drug abuse patient.[facility] HospitalIn the event this information is protected by the Federal Confidentiality of Alcohol and Drug Abuse Patient Records regulations: The Federal rules restrict any use of the information to criminally investigate or prosecute any alcohol or drug abuse patient.[facility] HospitalIn the event this information is protected by the Federal Confidentiality of Alcohol and Drug Abuse Patient Records regulations: The Federal rules restrict any use of the information to criminally investigate or prosecute any alcohol or drug abuse patient.[facility] HospitalIn the event this information is protected by the Federal Confidentiality of Alcohol and Drug Abuse Patient Records regulations: The Federal rules restrict any use of the information to criminally investigate or prosecute any alcohol or drug abuse patient.[facility] HospitalIn the event this information is protected by the Federal Confidentiality of Alcohol and Drug Abuse Patient Records regulations: The Federal rules restrict any use of the information to criminally investigate or prosecute any alcohol or drug abuse patient.[facility] HospitalIn the event this information is protected by the Federal Confidentiality of Alcohol and Drug Abuse Patient Records regulations: The Federal rules restrict any use of the information to criminally investigate or prosecute any alcohol or drug abuse patient.[facility] HospitalIn the event this information is protected by the Federal Confidentiality of Alcohol and Drug Abuse Patient Records regulations: The Federal rules restrict any use of the information to criminally investigate or prosecute any alcohol or drug abuse patient.[facility] HospitalIn the event this information is protected by the Federal Confidentiality of Alcohol and Drug Abuse Patient Records regulations: The Federal rules restrict any use of the information to criminally investigate or prosecute any alcohol or drug abuse patient.[facility] the event this information is protected by the Federal Confidentiality of Alcohol and Drug Abuse Patient Records regulations: The Federal rules restrict any use of the information to criminally investigate or prosecute any alcohol or drug abuse patient.[facility] HospitalIn the event this information is protected by the Federal Confidentiality of Alcohol and Drug Abuse Patient Records regulations: The Federal rules restrict any use of the information to criminally investigate or prosecute any alcohol or drug abuse patient.[facility] HospitalIn the event this information is protected [...] or prosecute any alcohol or drug abuse patient.[facility] HospitalIn the event this information is protected by the Federal Confidentiality of Alcohol and Drug Abuse Patient Records regulations: The Federal rules restrict any use of the information to criminally investigate or prosecute any alcohol or drug abuse patient.[facility] HospitalIn the event this information is protected by the Federal Confidentiality of Alcohol and Drug Abuse Patient Records regulations: The Federal rules restrict any use of the information to criminally investigate or prosecute any alcohol or drug abuse patient.[facility] HospitalIn the event this information is protected by the Federal Confidentiality of Alcohol and Drug Abuse Patient Records regulations: The Federal rules restrict any use of the information to criminally investigate or prosecute any alcohol or drug abuse patient.[facility] HospitalIn the event this information is protected by the Federal Confidentiality of Alcohol and Drug Abuse Patient Records regulations: The Federal rules restrict any use of the information to criminally investigate or prosecute any alcohol or drug abuse patient.[facility] HospitalIn the event this information is protected by the Federal Confidentiality of Alcohol and Drug Abuse Patient Records regulations: The Federal rules restrict any use of the information to criminally investigate or prosecute any alcohol or drug abuse patient.[facility] HospitalIn the event this information is protected by the Federal Confidentiality of Alcohol and Drug Abuse Patient Records regulations: The Federal rules restrict any use of the information to criminally investigate or prosecute any alcohol or drug abuse patient.[facility] HospitalIn the event this information is protected by the Federal Confidentiality of Alcohol and Drug Abuse Patient Records regulations: The Federal rules restrict any use of the information to criminally investigate or prosecute any alcohol or drug abuse patient.[facility] HospitalIn the event this information is protected by the Federal Confidentiality of Alcohol and Drug Abuse Patient Records regulations: The Federal rules restrict any use of the information to criminally investigate or prosecute any alcohol or drug abuse patient.[facility] HospitalIn the event this information is protected by the Federal Confidentiality of Alcohol and Drug Abuse Patient Records regulations: The Federal rules restrict any use of the information to criminally investigate or prosecute any alcohol or drug abuse patient.[facility] HospitalIn the event this information is protected by the Federal Confidentiality of Alcohol and Drug Abuse Patient Records regulations: The Federal rules restrict any use of the information to criminally investigate or prosecute any alcohol or drug abuse patient.[facility] HospitalIn the event this information is protected by the Federal Confidentiality of Alcohol and Drug Abuse Patient Records regulations: The Federal rules restrict any use of the information to criminally investigate or prosecute any alcohol or drug abuse patient.[facility] HospitalIn the event this information is protected by the Federal Confidentiality of Alcohol and Drug Abuse Patient Records regulations: The Federal rules restrict any use of the information to criminally investigate or prosecute any alcohol or drug abuse patient.[facility] HospitalIn the event this information is protected by the Federal Confidentiality of Alcohol and Drug Abuse Patient Records regulations: The Federal rules restrict any use of the information to criminally investigate or prosecute any alcohol or drug abuse patient.[facility] HospitalIn the event this information is protected by the Federal Confidentiality of Alcohol and Drug Abuse Patient Records regulations: The Federal rules restrict any use of the information to criminally investigate or prosecute any alcohol or drug abuse patient.[facility] HospitalIn the event this information is protected by the Federal Confidentiality of Alcohol and Drug Abuse Patient Records regulations: The Federal rules restrict any use of the information to criminally investigate or prosecute any alcohol or drug abuse patient.[facility] HospitalIn the event this information is protected by the Federal Confidentiality of Alcohol and Drug Abuse Patient Records regulations: The Federal rules restrict any use of the information to criminally investigate or prosecute any alcohol or drug abuse patient.[facility] HospitalIn the event this information is protected by the Federal Confidentiality of Alcohol and Drug Abuse Patient Records regulations: The Federal rules restrict any use of the information to criminally investigate or prosecute any alcohol or drug abuse patient.[facility] HospitalIn the event this information is protected by the Federal Confidentiality of Alcohol and Drug Abuse Patient Records regulations: The Federal rules restrict any use of the information to criminally investigate or prosecute any alcohol or drug abuse patient.[facility] HospitalIn the event this information is protected by the Federal Confidentiality of Alcohol and Drug Abuse Patient Records regulations: The Federal rules restrict any use of the information to criminally investigate or prosecute any alcohol or drug abuse patient.[facility] HospitalIn the event this information is protected by the Federal Confidentiality of Alcohol and Drug Abuse Patient Records regulations: The Federal rules restrict any use of the information to criminally investigate or prosecute any alcohol or drug abuse patient.[facility] HospitalIn the event this information is protected by the Federal Confidentiality of Alcohol and Drug Abuse Patient Records regulations: The Federal rules restrict any use of the information to criminally investigate or prosecute any alcohol or drug abuse patient.[facility] HospitalIn the event this information is protected by the Federal Confidentiality of Alcohol and Drug Abuse Patient Records regulations: The Federal rules restrict any use of the information to criminally investigate or prosecute any alcohol or drug abuse patient.[facility] HospitalIn the event this information is protected by the Federal Confidentiality of Alcohol and Drug Abuse Patient Records regulations: The Federal rules restrict any use of the information to criminally investigate or prosecute any alcohol or drug abuse patient.[facility] HospitalIn the event this information is protected by the Federal Confidentiality of Alcohol and Drug Abuse Patient Records regulations: The Federal rules restrict any use of the information to criminally investigate or prosecute any alcohol or drug abuse patient.[facility] HospitalIn the event this information is protected by the Federal Confidentiality of Alcohol and Drug Abuse Patient Records regulations: The Federal rules restrict any use of the information to criminally investigate or prosecute any alcohol or drug abuse patient.[facility] HospitalIn the event this information is protected by the Federal Confidentiality of Alcohol and Drug Abuse Patient Records regulations: The Federal rules restrict any use of the information to criminally investigate or prosecute any alcohol or drug abuse patient.[facility] HospitalIn the event this information is protected by the Federal Confidentiality of Alcohol and Drug Abuse Patient Records regulations: The Federal rules restrict any use of the information to criminally investigate or prosecute any alcohol or drug abuse patient.[facility] HospitalIn the event this information is protected by the Federal Confidentiality of Alcohol and Drug Abuse Patient Records regulations: The Federal rules restrict any use of the information to criminally investigate or prosecute any alcohol or drug abuse patient.[facility] HospitalIn the event this information is protected by the Federal Confidentiality of Alcohol and Drug Abuse Patient Records regulations: The Federal rules restrict any use of the information to criminally investigate or prosecute any alcohol or drug abuse patient.[facility] HospitalIn the event this information is protected by the Federal Confidentiality of Alcohol and Drug Abuse Patient Records regulations: The Federal rules restrict any use of the information to criminally investigate or prosecute any alcohol or drug abuse patient.[facility] HospitalIn the event this information is protected by the Federal Confidentiality of Alcohol and Drug Abuse Patient Records regulations: The Federal rules restrict any use of the information to criminally investigate or prosecute any alcohol or drug abuse patient.[facility] HospitalIn the event this information is protected by the Federal Confidentiality of Alcohol and Drug Abuse Patient Records regulations: The Federal rules restrict any use of the information to criminally investigate or prosecute any alcohol or drug abuse patient.[facility] HospitalIn the event this information is protected by the Federal Confidentiality of Alcohol and Drug Abuse Patient Records regulations: The Federal rules restrict any use of the information to criminally investigate or prosecute any alcohol or drug abuse patient.[facility] HospitalIn the event this information is protected by the Federal Confidentiality of Alcohol and Drug Abuse Patient Records regulations: The Federal rules restrict any use of the information to criminally investigate or prosecute any alcohol or drug abuse patient.[facility] HospitalIn the event this information is protected by the Federal Confidentiality of Alcohol and Drug Abuse Patient Records regulations: The Federal rules restrict any use of the information to criminally investigate or prosecute any alcohol or drug abuse patient.[facility] HospitalIn the event this information is protected by the Federal Confidentiality of Alcohol and Drug Abuse Patient Records regulations: The Federal rules restrict any use of the information to criminally investigate or prosecute any alcohol or drug abuse patient.[facility] HospitalIn the event this information is protected by the Federal Confidentiality of Alcohol and Drug Abuse Patient Records regulations: The Federal rules restrict any use of the information to criminally investigate or prosecute any alcohol or drug abuse patient.[facility] HospitalIn the event this information is protected by the Federal Confidentiality of Alcohol and Drug Abuse Patient Records regulations: The Federal rules restrict any use of the information to criminally investigate or prosecute any alcohol or drug abuse patient.[facility] HospitalIn the event this information is protected by the Federal Confidentiality of Alcohol and Drug Abuse Patient Records regulations: The Federal rules restrict any use of the information to criminally investigate or prosecute any alcohol or drug abuse patient.[facility] HospitalIn the event this information is protected by the Federal Confidentiality of Alcohol and Drug Abuse Patient Records regulations: The Federal rules restrict any use of the information to criminally investigate or prosecute any alcohol or drug abuse patient.[facility] HospitalIn the event this information is protected by the Federal Confidentiality of Alcohol and Drug Abuse Patient Records regulations: The Federal rules restrict any use of the information to criminally investigate or prosecute any alcohol or drug abuse patient.[facility] HospitalIn the event this information is protected by the Federal Confidentiality of Alcohol and Drug Abuse Patient Records regulations: The Federal rules restrict any use of the information to criminally investigate or prosecute any alcohol or drug abuse patient.[facility] HospitalIn the event this information is protected by the Federal Confidentiality of Alcohol and Drug Abuse Patient Records regulations: The Federal rules restrict any use of the information to criminally investigate or prosecute any alcohol or drug abuse patient.[facility] HospitalIn the event this information is protected by the Federal Confidentiality of Alcohol and Drug Abuse Patient Records regulations: The Federal rules restrict any use of the information to criminally investigate or prosecute any alcohol or drug abuse patient.[facility] HospitalIn the event this information is protected by the Federal Confidentiality of Alcohol and Drug Abuse Patient Records regulations: The Federal rules restrict any use of the information to criminally investigate or prosecute any alcohol or drug abuse patient.[facility] HospitalIn the event this information is protected by the Federal Confidentiality of Alcohol and Drug Abuse Patient Records regulations: The Federal rules restrict any use of the information to criminally investigate or prosecute any alcohol or drug abuse patient.[facility] the event this information is protected by the Federal Confidentiality of Alcohol and Drug Abuse Patient Records regulations: The Federal rules restrict any use of the information to criminally investigate or prosecute any alcohol or drug abuse patient.[facility] HospitalIn the event this information is protected by the Federal Confidentiality of Alcohol and Drug Abuse Patient Records regulations: The Federal rules restrict any use of the information to criminally investigate or prosecute any alcohol or drug abuse patient.[facility] HospitalIn the event this information is protected [...] or prosecute any alcohol or drug abuse patient.[facility] HospitalIn the event this information is protected by the Federal Confidentiality of Alcohol and Drug Abuse Patient Records regulations: The Federal rules restrict any use of the information to criminally investigate or prosecute any alcohol or drug abuse patient.[facility] HospitalIn the event this information is protected by the Federal Confidentiality of Alcohol and Drug Abuse Patient Records regulations: The Federal rules restrict any use of the information to criminally investigate or prosecute any alcohol or drug abuse patient.[facility] HospitalIn the event this information is protected by the Federal Confidentiality of Alcohol and Drug Abuse Patient Records regulations: The Federal rules restrict any use of the information to criminally investigate or prosecute any alcohol or drug abuse patient.[facility] HospitalIn the event this information is protected by the Federal Confidentiality of Alcohol and Drug Abuse Patient Records regulations: The Federal rules restrict any use of the information to criminally investigate or prosecute any alcohol or drug abuse patient.[facility] Reason for Visit (unrecogniz ed section and content) Specialty Diagnoses / Procedures Referred By Contac t Referred To Contact Pulmonary and Critical Care Medicine Diagnoses Interstitial lung disease (HCC) Honeycomb lung Procedures CONSULT TO PULM/CRITICAL CARE OFFICE/OUTPATIENT [facility] MDM 60-74 MINUTES Macey Stack MD [address] [place] [address] Referral ID Status Reason Start Date Expiration Date V isits Requested Visits Authorized [id number] Closed PCP Requested Referral 12/04/2021 12/04/2022 1 1 Reason Comments Medication Question Reason Onset Date Comments Insight Escalation 11/18/2021 Insight CDM Q uestionnaire triggered escalation Reason Comments Spirometry Specialty Diagnoses / Procedures Referred By Contac t Referred To Contact RESPIRATORY PURLING Diagnoses SOB (shortness of breath) Procedures LUNG VOLUMES Macey Stack MD [address] [place] [address] Respiratory [address] [place] [address] Referral ID Status Reason Start Date Expiration Date V isits Requested Visits Authorized [id number] Closed Auto-Generate d Referral 10/29/2021 11/28/2022 1 1 Specialty Diagnoses / Procedures Referred By Contac t Referred To Contact [facility] Diagnoses SOB (shortness of breath) Procedures LUNG DIFFUSION CAPACITY (DLCO) DIFFUSING CAPACITY Macey Stack MD [address] [place] [address] Respiratory [place] [address] [address] Referral ID Status Reason Start Date Expiration Date V isits Requested Visits Authorized [id number] Closed Auto-Generate d Referral 10/29/2021 11/28/2022 1 [...] WO IVCON DIAGNOSTIC COMPUTED TOMOGRAPHY THORAX W/O Macey Mistry MD [address] [place] [address] Ct Imaging Referral ID Status Reason Start Date Expiration Date V isits Requested Visits Authorized [id number] Closed Auto-Generate d Referral 11/22/2021 12/22/2022 1 [...] ABD & PELVIS W/CONTRAST Natalia Gaffney MD [address] [facility] [address] [place] [address] Ct Imaging Referral ID Status Reason Start Date Expiration Date V isits Requested Visits Authorized [id number] Closed Auto-Generate d Referral 03/05/2022 04/04/2023 1 1 Reason Comments Rash Specialty Diagnoses / Procedures Referred By Contac t Referred To Contact Dermatology Diagnoses ILD (interstitial lung disease) (HCC) Rash Dysphagia, unspecified type Procedures CONSULT TO DERMATOLOGY OFFICE/OUTPATIENT [facility] 60-74 [facility]UTES Natalia Gaffney MD [address] [address] Referral ID Status Reason Start Date Expiration Date V isits Requested Visits Authorized [id number] Closed PCP Requested Referral 01/17/2022 01/17/2023 1 [...] WALK CARDIOPULMONARY EXERCISE STRESS Nancy Sales MD [address] [place] [address] Respiratory [place] [address] [place] [address] Referral ID Status Reason Start Date Expiration Date V isits Requested Visits Authorized [id number] Closed Auto-Generate d Referral 12/17/2021 01/16/2023 1 [...] phosphatase level Procedures CONSULT TO HEPATOLOGY OFFICE/OUTPATIENT [facility] 60-74 MINUTES Natalia Gaffney MD [address] [address] Referral ID Status Reason Start Date Expiration Date V isits Requested Visits Authorized [id number] Closed PCP Requested Referral 03/08/2022 03/08/2023 1 1 Reason Onset Date Comments Refill Request 04/19/2022 Reason Onset Date Comments Anticoagulation Telephone Fu 04/22/2022 Nhan e INR Result Reason Comments MEDICATION DISCHARGE NOTICE ESBRIET / Or rikki Reason Comments Recheck 6 month Reason Comments Radio Gen A21 Specialty Diagnoses / Procedures Referred By Contang t Referred To Contact XR IMAGING Diagnoses Fall, initial encounter Procedures XR THORACIC GENERAL 3V AP/LAT/SWIMMERS RADEX SPINE THORACIC 3 VIEWS Natalia Gaffney MD [address] [address] Xr Imaging Referral ID Status Reason Start Date Expiration Date V isits Requested Visits Authorized [id number] Closed Auto-Generate d Referral 05/14/2022 06/13/2023 1 1 Reason Onset Date Comments Anticoagulation 05/13/2022 INR result resul t Reason Comments Cough Fri05/17/22 started with cough. 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 INR result Reason Comments Anticoagulation Telephone Fu Home INR Specialty Diagnoses / Procedures Referred By Contac t Referred To [facility] RESPIRATORY PURLING Diagnoses Pulmonary fibrosis (HCC) Procedures SPIROMETRY WITH DILATOR IF OBSTRUCTED BRNCDILAT RSPSE SPMTRY PRE&POST-BRNCDILAT ADMN Nancy Sales MD [address] [facility] [place] [id number] [place] [address] Referral ID Status Reason Start Date Expiration Date V isits Requested Visits Authorized [id number] Closed Auto-Generate d Referral 03/03/2023 04/01/2024 1 1 Specialty Diagnoses / Procedures Referred By Contac t Referred To [facility] RESPIRATORY PURLING Diagnoses Pulmonary fibrosis (HCC) Procedures SIX MINUTE WALK CARDIOPULMONARY EXERCISE STRESS Nancy Sales MD [address] [facility] [place] [id number] [place] [address] Referral ID Status Reason Start Date Expiration Date V isits Requested Visits Authorized [id number] Closed Auto-Generate d Referral 03/03/2023 04/01/2024 1 1 Specialty Diagnoses / Procedures Referred By Contac t Referred To [facility] RESPIRATORY PURLING Diagnoses Pulmonary fibrosis (HCC) Procedures LUNG DIFFUSION CAPACITY (DLCO) DIFFUSING CAPACITY Nancy Sales MD [address] [place] [address] Respiratory [place] [address] [place] [address] Referral ID Status Reason Start Date Expiration Date V isits Requested Visits Authorized [id number] Closed Auto-Generate d Referral 03/03/2023 04/01/2024 1 [...] unspecified type Procedures CONSULT TO UROLOGY OFFICE/OUTPATIENT [facility] MDM 60-74 MINUTES Jorge L Sexton MD [address] [place] [address] Referral ID Status Reason Start Date Expiration Date Visits Requested Visits Authorized [id number] Pending Review PCP Requested Referral 04/28/2023 04/27/2024 1 1 Reason Onset Date Comments Anticoagulation Telephone Fu 05/19/2023 Lab INR Result Reason Comments Follow Up discuss Ed and CT an d check ears Reason Onset Date Comments Refill Request 06/12/2023 Reason Onset Date Comments Refill Request 06/23/2023 Reason Comments Anticoagulation Telephone Fu Home INR Care Teams (unrecognized sec tion and content) Extermination Inspector Relationship Specialty Start Date End Date Macey Stack MD [address] [place] [address] PCP - General Internal Medicine 12/26/14 No, Referral Referring 06/16/18 13, Pharmacist [id number] [place] [address] Pharmacist Pharmacy 03/20/20 Joel Benavides, field marketerMedical Translator Internal Medicine 05/24/20 Jose Ramon Contreras MD [address] [place] [address] Specialty Phone Operator Cardiology 06/14/20 Linus Madrid MD [address] [place] [address], [place] [address] Specialty Phone Operator Cardiology 07/23/21 Extermination Inspector Relationship Specialty Start Date End Date Macey Stack MD [address] [place] [address] PCP - General Internal Medicine 12/26/14 No, Referral Referring 06/16/18 13, Pharmacist [id number] [place] [address] Pharmacist Pharmacy 03/20/20 Joel Benavides, field marketerMedical Translator Internal Medicine 05/24/20 Jose Ramon Contreras MD [address] [place] [address] Specialty Phone Operator Cardiology 06/14/20 Linus Madrid MD [address] [place] [phone] Specialty Phone Operator Cardiology 07/23/21 Extermination Inspector Relationship Specialty Start Date End Date Macey Stack MD [address] [place] [address] PCP - General Internal Medicine 12/26/14 No, Referral Referring 06/16/18 13, Pharmacist [address] [place] [address] Pharmacist Pharmacy 03/20/20 Joel Benavides, field marketerMedical Translator Internal Medicine 05/24/20 Jose Ramon Contreras MD [address] [place] [address] Specialty Phone Operator Cardiology 06/14/20 Linus Madrid MD [address] [place] [phone] Specialty Phone Operator Cardiology 07/23/21 Extermination Inspector Relationship Specialty Start Date End Date Macey Stack MD [address] [place] [address] PCP - General Internal Medicine 12/26/14 No, Referral Referring 06/16/18 13, Pharmacist [id number] [facility] [facility] [place] [address] Pharmacist Pharmacy 03/20/20 Joel Benavides, field marketerMedical Translator Internal Medicine 05/24/20 Jose Ramon Contreras MD [address] [place] [address] Specialty Phone Operator Cardiology 06/14/20 Linus Madrid MD [address] JON [address] [place] [address], [place] [address] Specialty Phone Operator Cardiology 07/23/21 Extermination Inspector Relationship Specialty Start Date End Date Macey Stack MD [address] [place] [address] PCP - General Internal Medicine 12/26/14 No, Referral Referring 06/16/18 13, Pharmacist [phone] [place] [address] Pharmacist Pharmacy 03/20/20 Joel Benavides, field marketerMedical Translator Internal Medicine 05/24/20 Jose Ramon Contreras MD [address] [place] [address] Specialty Phone Operator Cardiology 06/14/20 Linus Madrid MD [address] [place] [phone] Specialty Phone Operator Cardiology 07/23/21 Extermination Inspector Relationship Specialty Start Date End Date Macey Stack MD [address] [place] [address] PCP - General Internal Medicine 12/26/14 No, Referral Referring 06/16/18 13, Pharmacist [phone] [place] [address] Pharmacist Pharmacy 03/20/20 Joel Benavides, field marketerMedical Translator Internal Medicine 05/24/20 Jose Ramon Contreras MD [address] [place] [address] Specialty Phone Operator Cardiology 06/14/20 Linus Madrid MD [address] [facility] [place] [address] Specialty Phone Operator Cardiology 07/23/21 Extermination Inspector Relationship Specialty Start Date End Date Macey Stack MD [address] [place] [address] PCP - General Internal Medicine 12/26/14 No, Referral Referring 06/16/18 13, Pharmacist [phone] [place] [address] Pharmacist Pharmacy 03/20/20 Joel Benavides RN Medical Translator Internal Medicine 05/24/20 Jose Ramon Contreras MD [address] [place] [address] Specialty Phone Operator Cardiology 06/14/20 Linus Madrid MD [address] [place] [address], [place] [address] Specialty Phone Operator Cardiology 07/23/21 Extermination Inspector Relationship Specialty Start Date End Date Macey Stack MD [address] [place] [address] PCP - General Internal Medicine 12/26/14 No, Referral Referring 06/16/18 13, Pharmacist [phone] [place] [address] Pharmacist Pharmacy 03/20/20 Joel Benavides field marketerMedical Translator Internal Medicine 05/24/20 Jose Ramon Contreras MD [address] [place] [address] Specialty Phone Operator Cardiology 06/14/20 Linus Madrid MD [address] [place] [phone] Specialty Phone Operator Cardiology 07/23/21 Extermination Inspector Relationship Specialty Start Date End Date Macey Stack MD [address] [place] [address] PCP - General Internal Medicine 12/26/14 No, Referral Referring 06/16/18 13, Pharmacist [phone] [place] [address] Pharmacist Pharmacy 03/20/20 Joel Benavides, field marketerMedical Translator Internal Medicine 05/24/20 Jose Ramon Contreras MD [address] [place] [address] Specialty Phone Operator Cardiology 06/14/20 Linus Madrid MD [address] [address] Specialty Phone Operator Cardiology 07/23/21 Extermination Inspector Relationship Specialty Start Date End Date Macey Stack MD [address] [place] [address] PCP - General Internal Medicine 12/26/14 No, Referral Referring 06/16/18 13, Pharmacist [phone] [place] [address] Pharmacist Pharmacy 03/20/20 Joel Benavides, field marketerMedical Translator Internal Medicine 05/24/20 Jose Ramon Contreras MD [address] [place] [address] Specialty Phone Operator Cardiology 06/14/20 Linus Madrid MD [address] [address] Specialty Phone Operator Cardiology 07/23/21 Extermination Inspector Relationship Specialty Start Date End Date Macey Stack MD [address] [place] [address] PCP - General Internal Medicine 12/26/14 No, Referral Referring 06/16/18 13, Pharmacist [phone] [facility] [place] [address] Pharmacist Pharmacy 03/20/20 Joel Benavides RN Medical Translator Internal Medicine 05/24/20 Jose Ramon Contreras MD [address] [place] [address] Specialty Phone Operator Cardiology 06/14/20 Linus Madrid MD [address] [place] [phone] Specialty Phone Operator Cardiology 07/23/21 Extermination Inspector Relationship Specialty Start Date End Date Macey Stack MD [address] [place] [address] PCP - General Internal Medicine 12/26/14 No, Referral Referring 06/16/18 13, Pharmacist [phone] [place] [address] Pharmacist Pharmacy 03/20/20 Joel Benavides RN Medical Translator Internal Medicine 05/24/20 Jose Ramon Contreras MD [address] [place] [address] Specialty Phone Operator Cardiology 06/14/20 Linus Madrid MD [address] [place] [phone] Specialty Phone Operator Cardiology 07/23/21 Extermination Inspector Relationship Specialty Start Date End Date Macey Stack MD [address] [place] [address] PCP - General Internal Medicine 12/26/14 No, Referral Referring 06/16/18 13, Pharmacist [phone] [place] [address] Pharmacist Pharmacy 03/20/20 Makayla, Maldonado M, field marketerMedical Translator Internal Medicine 05/24/20 Jose Ramno Contreras MD [address] [place] [address] Specialty Phone Operator Cardiology 06/14/20 Linus Madrid MD [address] [place] [address] Specialty Phone Operator Cardiology 07/23/21 Extermination Inspector Relationship Specialty Start Date End Date Macey Stack MD [address] [place] [address] PCP - General Internal Medicine 12/26/14 No, Referral Referring 06/16/18 13, Pharmacist [phone] [place] [address] Pharmacist Pharmacy 03/20/20 Joel Benavides RN Medical Translator Internal Medicine 05/24/20 Jose Ramon Contreras MD [address] [place] [address] Specialty Phone Operator Cardiology 06/14/20 Linus Madrid MD [address] [place] [address] Specialty Phone Operator Cardiology 07/23/21 Extermination Inspector Relationship Specialty Start Date End Date Macey Stack MD [address] [place] [address] PCP - General Internal Medicine 12/26/14 No, Referral Referring 06/16/18 13, Pharmacist [phone] [place] [address] Pharmacist Pharmacy 03/20/20 Joel Benavides field marketerMedical Translator Internal Medicine 05/24/20 Jose Ramon Contreras MD [address] [place] [address] Specialty Phone Operator Cardiology 06/14/20 Linus Madrid MD [address] [place] [address] Specialty Phone Operator Cardiology 07/23/21 Extermination Inspector Relationship Specialty Start Date End Date Macey Stack MD [address] [place] [address] PCP - General Internal Medicine 12/26/14 No, Referral Referring 06/16/18 13, Pharmacist [address] [place] [address] Pharmacist Pharmacy 03/20/20 Joel Benavides, field marketerMedical Translator Internal Medicine 05/24/20 Jose Ramon Contreras MD [address] [place] [address] Specialty Phone Operator Cardiology 06/14/20 Linus Madrid MD [address] [address] Specialty Phone Operator Cardiology 07/23/21 Extermination Inspector Relationship Specialty Start Date End Date Macey Stack MD [address] [place] [address] PCP - General Internal Medicine 12/26/14 No, Referral Referring 06/16/18 13, Pharmacist [phone] [place] [address] Pharmacist Pharmacy 03/20/20 Joel Benavides, field marketerMedical Translator Internal Medicine 05/24/20 Jose Ramon Contreras MD [address] [place] [address] Specialty Phone Operator Cardiology 06/14/20 Linus Madrid MD [address] [place] [phone] Specialty Phone Operator Cardiology 07/23/21 Extermination Inspector Relationship Specialty Start Date End Date Macey Stack MD [address] [place] [address] PCP - General Internal Medicine 12/26/14 No, Referral Referring 06/16/18 13, Pharmacist [phone] [facility] [place] [address] Pharmacist Pharmacy 03/20/20 Joel Benavides, field marketerMedical Translator Internal Medicine 05/24/20 Jose Ramon Contreras MD [address] [place] [address] Specialty Phone Operator Cardiology 06/14/20 Linus Madrid MD [address] [place] [phone] Specialty Phone Operator Cardiology 07/23/21 Extermination Inspector Relationship Specialty Start Date End Date Macey Stack MD [address] [place] [address] PCP - General Internal Medicine 12/26/14 No, Referral Referring 06/16/18 13, Pharmacist [address] [place] [address] Pharmacist Pharmacy 03/20/20 Joel Benavides, field marketerMedical Translator Internal Medicine 05/24/20 Jose Ramon Contreras MD [address] [place] [address] Specialty Phone Operator Cardiology 06/14/20 Linus Madrid MD [address] [place] [phone] Specialty Phone Operator Cardiology 07/23/21 Extermination Inspector Relationship Specialty Start Date End Date Macey Stack MD [address] [place] [address] PCP - General Internal Medicine 12/26/14 No, Referral Referring 06/16/18 13, Pharmacist [phone] [place] [address] Pharmacist Pharmacy 03/20/20 Joel Benavides, field marketerMedical Translator Internal Medicine 05/24/20 Jose Ramon Contreras MD [address] [place] [address] Specialty Phone Operator Cardiology 06/14/20 Linus Madrid MD [address] [place] [address] Specialty Phone Operator Cardiology 07/23/21 Extermination Inspector Relationship Specialty Start Date End Date Macey Stack MD [address] [place] [address] PCP - General Internal Medicine 12/26/14 No, Referral Referring 06/16/18 13, Pharmacist [address] [place] [address] Pharmacist Pharmacy 03/20/20 Makayla Maldonado, field marketerMedical Translator Internal Medicine 05/24/20 Jose Ramon Contreras MD [address] [place] [address] Specialty Phone Operator Cardiology 06/14/20 Linus Madrid MD [address] [place] [address] Specialty Phone Operator Cardiology 07/23/21 Extermination Inspector Relationship Specialty Start Date End Date Macey Stack MD [address] [place] [address] PCP - General Internal Medicine 12/26/14 No, Referral Referring 06/16/18 13, Pharmacist [phone] [place] [address] Pharmacist Pharmacy 03/20/20 Makayla Maldonado, field marketerMedical Translator Internal Medicine 05/24/20 Jose Ramon Contreras MD [address] [place] [address] Specialty Phone Operator Cardiology 06/14/20 Linus Madrid MD [address] [place] [address] Specialty Phone Operator Cardiology 07/23/21 Extermination Inspector Relationship Specialty Start Date End Date Macey Stack MD [address] [place] [address] PCP - General Internal Medicine 12/26/14 No, Referral Referring 06/16/18 13, Pharmacist [address] [place] [address] Pharmacist Pharmacy 03/20/20 Makayla Maldonado, field marketerMedical Translator Internal Medicine 05/24/20 Jose Ramon Contreras MD [address] [place] [address] Specialty Phone Operator Cardiology 06/14/20 Linus Madrid MD [address] [place] [phone] Specialty Phone Operator Cardiology 07/23/21 Extermination Inspector Relationship Specialty Start Date End Date Macey Stack MD [address] [place] [address] PCP - General Internal Medicine 12/26/14 No, Referral Referring 06/16/18 13, Pharmacist [address] [place] [address] Pharmacist Pharmacy 03/20/20 Makayla Maldonado, field marketerMedical Translator Internal Medicine 05/24/20 Jose Ramon Contreras MD [address] [place] [address] Specialty Phone Operator Cardiology 06/14/20 Linus Madrid MD [address] [place] [phone] Specialty Phone Operator Cardiology 07/23/21 Extermination Inspector Relationship Specialty Start Date End Date Macey Stack MD [address] [place] [address] PCP - General Internal Medicine 12/26/14 No, Referral Referring 06/16/18 13, Pharmacist [phone] [facility] [place] [address] Pharmacist Pharmacy 03/20/20 Makayla Maldonado, field marketerMedical Translator Internal Medicine 05/24/20 Jose Ramon Contreras MD [address] [place] [address] Specialty Phone Operator Cardiology 06/14/20 Linus Madrid MD [address] [place] [address] Specialty Phone Operator Cardiology 07/23/21 Extermination Inspector Relationship Specialty Start Date End Date Macey Stack MD [address] [place] [address] PCP - General Internal Medicine 12/26/14 No, Referral Referring 06/16/18 13, Pharmacist [phone] [facility] [place] [address] Pharmacist Pharmacy 03/20/20 Makayla Maldonado, field marketerMedical Translator Internal Medicine 05/24/20 Jose Ramon Contreras MD [address] [place] [address] Specialty Phone Operator Cardiology 06/14/20 Linus Madrid MD [address] [place] [address] Specialty Phone Operator Cardiology 07/23/21 Extermination Inspector Relationship Specialty Start Date End Date Macey Stack MD [address] [place] [address] PCP - General Internal Medicine 12/26/14 13, Pharmacist [phone] [facility] [place] [address] Pharmacist Pharmacy 03/20/20 Makayla Maldonado, field marketerMedical Translator Internal Medicine 05/24/20 Jose Ramon Contreras MD [address] [place] [address] Specialty Phone Operator Cardiology 06/14/20 Linus Madrid MD [address] [address] Specialty Phone Operator Cardiology 07/23/21 Nancy Sales MD [address] [place] [address] Specialty Phone Operator Pulmonary Disease 08/21/22 Natalia Gaffney MD [address] [address] Specialty Phone Operator Rheumatology 08/21/22 Extermination Inspector Relationship Specialty Start Date End Date Macey Stack MD [address] [place] [address] PCP - General Internal Medicine 12/26/14 13, Pharmacist [address] [place] [address] Pharmacist Pharmacy 03/20/20 Makayla Maldonado, field marketerMedical Translator Internal Medicine 05/24/20 Jose Ramon Contreras MD [address] [place] [address] Specialty Phone Operator Cardiology 06/14/20 Linus Madrid MD [address] [address] Specialty Phone Operator Cardiology 07/23/21 Nancy Sales MD [address] [place] [address] Specialty Phone Operator Pulmonary Disease 08/21/22 Natalia Gaffney MD [address] [address] Specialty Phone Operator Rheumatology 08/21/22 Extermination Inspector Relationship Specialty Start Date End Date Macey Stack MD [address] [place] [address] PCP - General Internal Medicine 12/26/14 13, Pharmacist [phone] [place] [address] Pharmacist Pharmacy 03/20/20 Makayla Maldonado, field marketerMedical Translator Internal Medicine 05/24/20 Jose Ramon Contreras MD [address] [place] [address] Specialty Phone Operator Cardiology 06/14/20 Linus Madrid MD [address] [place] [phone] Specialty Phone Operator Cardiology 07/23/21 Nancy Sales MD [address] [place] [address] Specialty Phone Operator Pulmonary Disease 08/21/22 Natalia Gaffney MD [address] [facility] [address] [place] [address] Specialty Phone Operator Rheumatology 08/21/22 Extermination Inspector Relationship Specialty Start Date End Date Macey Stack MD [address] [place] [address] PCP - General Internal Medicine 12/26/14 13, Pharmacist [address] [place] [address] Pharmacist Pharmacy 03/20/20 Makayla Maldonado, field marketerMedical Translator Internal Medicine 05/24/20 Jose Ramon Contreras MD [address] [place] [address] Specialty Phone Operator Cardiology 06/14/20 Linus Madrid MD [address] [address] Specialty Phone Operator Cardiology 07/23/21 Nancy Sales MD [address] [place] [address] Specialty Phone Operator Pulmonary Disease 08/21/22 Natalia Gaffney MD [address] [place] [address] Specialty Phone Operator Rheumatology 08/21/22 Extermination Inspector Relationship Specialty Start Date End Date Macey Stack MD [address] [place] [address] PCP - General Internal Medicine 12/26/14 13, Pharmacist [address] [place] [address] Pharmacist Pharmacy 03/20/20 Makayla Maldonado, field marketerMedical Translator Internal Medicine 05/24/20 Jose Ramon Contreras MD [address] [place] [address] Specialty Phone Operator Cardiology 06/14/20 Linus Madrid MD [address] [address] Specialty Phone Operator Cardiology 07/23/21 Nancy Sales MD [address] [facility] [place] [place] [address] Specialty Phone Operator Pulmonary Disease 08/21/22 Natalia Gaffney MD [address] [place] [address] Specialty Phone Operator Rheumatology 08/21/22 Extermination Inspector Relationship Specialty Start Date End Date Macey Stack MD [address] [place] [address] PCP - General Internal Medicine 12/26/14 No, Referral Referring 06/16/18 08/19/22 13, Pharmacist [address] [place] [address] Pharmacist Pharmacy 03/20/20 Makayla Maldonado, field marketerMedical Translator Internal Medicine 05/24/20 Jose Ramon Contreras MD [address] [place] [address] Specialty Phone Operator Cardiology 06/14/20 Linus Madrid MD [address] [address] Specialty Phone Operator Cardiology 07/23/21 Nancy Sales MD [address] [place] [address] Specialty Phone Operator Pulmonary Disease 08/21/22 Natalia Gaffney MD [address] [address] Specialty Phone Operator Rheumatology 08/21/22 Extermination Inspector Relationship Specialty Start Date End Date Macey Stack MD [address] [place] [address] PCP - General Internal Medicine 12/26/14 13, Pharmacist [address] [place] [address] Pharmacist Pharmacy 03/20/20 Makayla Maldonado, field marketerMedical Translator Internal Medicine 05/24/20 Jose Ramon Contreras MD [address] [place] [address] (Fax) Specialty Phone Operator Cardiology 06/14/20 Linus Madrid MD [address] [address] Specialty Phone Operator Cardiology 07/23/21 Nancy Sales MD [address] [place] [address] Specialty Phone Operator Pulmonary Disease 08/21/22 Natalia Gaffney MD [address] [place] [address] Specialty Phone Operator Rheumatology 08/21/22 Extermination Inspector Relationship Specialty Start Date End Date Macey Stack MD [address] [place] [address] PCP - General Internal Medicine 12/26/14 13, Pharmacist [address] [place] [address] Pharmacist Pharmacy 03/20/20 Makayla Maldonado, field marketerMedical Translator Internal Medicine 05/24/20 Jose Ramon Contreras MD [address] [place] [address] Specialty Phone Operator Cardiology 06/14/20 Linus Madrid MD [address] [address] Specialty Phone Operator Cardiology 07/23/21 Nancy Sales MD [address] [place] [address] Specialty Phone Operator Pulmonary Disease 08/21/22 Natal[facility]affney MD [address] [facility] [address] [address] Specialty Phone Operator Rheumatology 08/21/22 Extermination Inspector Relationship Specialty Start Date End Date Macey Stack MD [address] [place] [address] PCP - General Internal Medicine 12/26/14 13, Pharmacist [address] [place] [address] Pharmacist Pharmacy 03/20/20 Makayla Maldonado, field marketerMedical Translator Internal Medicine 05/24/20 Jose Ramon Contreras MD [address] [place] [address] Specialty Phone Operator Cardiology 06/14/20 Linus Madrid MD [address] [place] [address] Specialty Phone Operator Cardiology 07/23/21 Nancy Sales MD [address] [place] [address] Specialty Phone Operator Pulmonary Disease 08/21/22 Natalia Gaffney MD [address] [address] Specialty Phone Operator Rheumatology 08/21/22 Extermination Inspector Relationship Specialty Start Date End Date Macey Stack MD [address] [place] [address] PCP - General Internal Medicine 12/26/14 13, Pharmacist [address] [place] [address] Pharmacist Pharmacy 03/20/20 Makayla Maldonado, field marketerMedical Translator Internal Medicine 05/24/20 Jose Ramon Contreras MD [address] [place] [address] Specialty Phone Operator Cardiology 06/14/20 Linus Madrid MD [address] [place] [address] Specialty Phone Operator Cardiology 07/23/21 Nancy Sales MD [address] [facility] [place] [address] Specialty Phone Operator Pulmonary Disease 08/21/22 Natalia Gaffney MD [address] [facility] [address] [address] Specialty Phone Operator Rheumatology 08/21/22 Extermination Inspector Relationship Specialty Start Date End Date Macey Stack MD [address] [place] [address] PCP - General Internal Medicine 12/26/14 13, Pharmacist [address] [place] [address] Pharmacist Pharmacy 03/20/20 Makayla Maldonado, field marketerMedical Translator Internal Medicine 05/24/20 Jose Ramon Contreras MD [address] [place] [address] Specialty Phone Operator Cardiology 06/14/20 Linus Madrid MD [address] [address] Specialty Phone Operator Cardiology 07/23/21 Nancy Sales MD [address] [place] [address] Specialty Phone Operator Pulmonary Disease 08/21/22 Natalia Gaffney MD [address] [facility] [address] [place] [address] Specialty Phone Operator Rheumatology 08/21/22 Extermination Inspector Relationship Specialty Start Date End Date Macey Stack MD [address] [place] [address] PCP - General Internal Medicine 12/26/14 13, Pharmacist [address] [place] [address] Pharmacist Pharmacy 03/20/20 Makayla Maldonado RN Medical Translator Internal Medicine 05/24/20 Jose Ramon Contreras MD [address] [place] [address] Specialty Phone Operator Cardiology 06/14/20 Linus Madrid MD [address] [address] Specialty Phone Operator Cardiology 07/23/21 Nancy Sales MD [address] [place] [address] Specialty Phone Operator Pulmonary Disease 08/21/22 Natalia Gaffney MD [address] [facility] [address] [place] [address] Specialty Phone Operator Rheumatology 08/21/22 Extermination Inspector Relationship Specialty Start Date End Date Macey Stack MD [address] [place] [address] PCP - General Internal Medicine 12/26/14 13, Pharmacist [address] [place] [address] Pharmacist Pharmacy 03/20/20 Makayla Maldonado, field marketerMedical Translator Internal Medicine 05/24/20 Jose Ramon Contreras MD [address] [place] [address] Specialty Phone Operator Cardiology 06/14/20 Linus Madrid MD [address] [address] Specialty Phone Operator Cardiology 07/23/21 Nancy Sales MD [address] [place] [address] Specialty Phone Operator Pulmonary Disease 08/21/22 Natalia Gaffney MD [address] [place] [address] Specialty Phone Operator Rheumatology 08/21/22 Extermination Inspector Relationship Specialty Start Date End Date Macey Stack MD [address] [place] [address] PCP - General Internal Medicine 12/26/14, Pharmacist [address] [place] [address] Pharmacist Pharmacy 03/20/20 Makayla Maldonado, field marketerMedical Translator Internal Medicine 05/24/20 Jose Ramon Contreras MD [address] [place] [address] Specialty Phone Operator Cardiology 06/14/20 Linus Madrid MD [address] [place] [phone] Specialty Phone Operator Cardiology 07/23/21 Nancy Sales MD [address] [place] [address] Specialty Phone Operator Pulmonary Disease 08/21/22 Natalia Gaffney MD [address] [address] Specialty Phone Operator Rheumatology 08/21/22 Extermination Inspector Relationship Specialty Start Date End Date Macey Stack MD [address] [place] [address] PCP - General Internal Medicine 12/26/14 13, Pharmacist [address] [place] [address] Pharmacist Pharmacy 03/20/20 Makayla Maldonado, field marketerMedical Translator Internal Medicine 05/24/20 Jose Ramon Contreras MD [address] [place] [address] Specialty Phone Operator Cardiology 06/14/20 Linus Madrid MD [address] [address] Specialty Phone Operator Cardiology 07/23/21 Nancy Sales MD [address] [place] [address] Specialty Phone Operator Pulmonary Disease 08/21/22 Natalia Gaffney MD [address] [address] Specialty Phone Operator Rheumatology 08/21/22 Extermination Inspector Relationship Specialty Start Date End Date Macey Stack MD [address] [place] [address] PCP - General Internal Medicine 12/26/14 13, Pharmacist [id number] [place] [address] Pharmacist Pharmacy 03/20/20 Makayla Maldonado, field marketerMedical Translator Internal Medicine 05/24/20 Jose Ramon Contreras MD [address] [place] [address] (Fax) Specialty Phone Operator Cardiology 06/14/20 Linus Madrid MD [address] [place] [address] (Fax) Specialty Phone Operator Cardiology 07/23/21 Nancy Sales MD [address] [place] [address] Specialty Phone Operator Pulmonary Disease 08/21/22 Natalia Gaffney MD [address] [facility] [address] [place] [address] Specialty Phone Operator Rheumatology 08/21/22 Extermination Inspector Relationship Specialty Start Date End Date Macey Stack MD [address] [place] [address] PCP - General Internal Medicine 12/26/14 No, Referral Referring 06/16/18 08/19/22 13, Pharmacist [phone] [place] [address] Pharmacist Pharmacy 03/20/20 Makayla Maldonado, field marketerMedical Translator Internal Medicine 05/24/20 Jose Ramon Contreras MD [address] [place] [address] Specialty Phone Operator Cardiology 06/14/20 Linus Madrid MD [address] [place] [address] Specialty Phone Operator Cardiology 07/23/21 Nancy Sales MD [address] [place] [address] Specialty Phone Operator Pulmonary Disease 08/21/22 Natalia Gaffney MD [address] [place] [address] Specialty Phone Operator Rheumatology 08/21/22 Extermination Inspector Relationship Specialty Start Date End Date Macey Stack MD [address] [place] [address] PCP - General Internal Medicine 12/26/14 13, Pharmacist [address] [place] [address] Pharmacist Pharmacy 03/20/20 Makayla Maldonado, field marketerMedical Translator Internal Medicine 05/24/20 Jose Ramon Contreras MD [address] [place] [address] Specialty Phone Operator Cardiology 06/14/20 Linus Madrid MD [address] [phone] Specialty Phone Operator Cardiology 07/23/21 Nancy Sales MD [address] [place] [address] Specialty Phone Operator Pulmonary Disease 08/21/22 Natalia Gaffney MD [address] [place] [address] Specialty Phone Operator Rheumatology 08/21/22 Extermination Inspector Relationship Specialty Start Date End Date Macey Stack MD [address] [place] [address] PCP - General Internal Medicine 12/26/14 13, Pharmacist [phone] [place] [address] Pharmacist Pharmacy 03/20/20 Makayla Maldonado, field marketerMedical Translator Internal Medicine 05/24/20 Jose Ramon Contreras MD [address] [place] [address] Specialty Phone Operator Cardiology 06/14/20 Linus Madrid MD [address] [address] Specialty Phone Operator Cardiology 07/23/21 Nancy Sales MD [address] [place] [address] Specialty Phone Operator Pulmonary Disease 08/21/22 Natalia Gaffney MD [address] [address] Specialty Phone Operator Rheumatology 08/21/22 Extermination Inspector Relationship Specialty Start Date End Date Macey Stack MD [address] [place] [address] PCP - General Internal Medicine 12/26/14 13, Pharmacist [phone] [place] [address] Pharmacist Pharmacy 03/20/20 Jose Ramon Contreras MD [address] [place] [address] Specialty Phone Operator Cardiology 06/14/20 Linus Madrid MD [address] [address] Specialty Phone Operator Cardiology 07/23/21 Nancy Sales MD [address] [place] [address] Specialty Phone Operator Pulmonary Disease 08/21/22 Natalia Gaffney MD [address] [address] Specialty Phone Operator Rheumatology 08/21/22 Tamra Mock, VIKY [address] [place] [address] Medical Translator Internal Medicine 01/15/23 Extermination Inspector Relationship Specialty Start Date End Date Macey Stack MD [address] [place] [address] PCP - General Internal Medicine 12/26/14, Pharmacist [phone] [place] [address] Pharmacist Pharmacy 03/20/20 Jose Ramon Contreras MD [address] [place] [address] (Fax) Specialty Phone Operator Cardiology 06/14/20 Linus Madrid MD [address] [phone] (Fax) Specialty Phone Operator Cardiology 07/23/21 Nancy Sales MD [address] [place] [address] Specialty Phone Operator Pulmonary Disease 08/21/22 Natalia Gaffney MD [address] [facility] [address] [place] [address] Specialty Phone Operator Rheumatology 08/21/22 Tamra Mock, VIKY [address] [place] [address] Medical Translator Internal Medicine 01/15/23 Extermination Inspector Relationship Specialty Start Date End Date Macey Stcak MD [address] [place], [place] [address] PCP - General Internal Medicine 12/26/14, Pharmacist [phone] [place] [address] Pharmacist Pharmacy 03/20/20 Jose Ramon Contreras MD [address] [place] [address] (Fax) Specialty Phone Operator Cardiology 06/14/20 Linus Madrid MD [address] [address] Specialty Phone Operator Cardiology 07/23/21 Nancy Sales MD [address] [place] [address] Specialty Phone Operator Pulmonary Disease 08/21/22 Natalia Gaffney MD [address] [address] Specialty Phone Operator Rheumatology 08/21/22 Tamra Mock, VIKY [address] [place], [place] [address] Medical Translator Internal Medicine 01/15/23 Extermination Inspector Relationship Specialty Start Date End Date Macey Stack MD [address] [place] [address] PCP - General Internal Medicine 12/26/14 13, Pharmacist [phone] [place] [address] Pharmacist Pharmacy 03/20/20 Jose Ramon Contreras MD [address] [place] [address] Specialty Phone Operator Cardiology 06/14/20 Linus Madrid MD [address] [address] Specialty Phone Operator Cardiology 07/23/21 Nancy Sales MD [address] [place] [address] Specialty Phone Operator Pulmonary Disease 08/21/22 Natalia Gaffney MD [address] [address] Specialty Phone Operator Rheumatology 08/21/22 Tamra Mock, VIKY [address] [place] [address] Medical Translator Internal Medicine 01/15/23 Extermination Inspector Relationship Specialty Start Date End Date Macey Stack MD [address] [place], [place] [address] PCP - General Internal Medicine 12/26/14 13, Pharmacist [address] [place] [address] Pharmacist Pharmacy 03/20/20 Jose Ramon Contreras MD [address] [place] [address] Specialty Phone Operator Cardiology 06/14/20 Linus Madrid MD [address] [address] Specialty Phone Operator Cardiology 07/23/21 Nancy Sales MD [address] [place] [address] Specialty Phone Operator Pulmonary Disease 08/21/22 Natalia Gaffney MD [address] [facility] [address] [place] [address] Specialty Phone Operator Rheumatology 08/21/22 Tamra Mock, RN [address] [place] [address] Medical Translator Internal Medicine 01/15/23 Extermination Inspector Relationship Specialty Start Date End Date Macey Stack MD [address] [place], [place] [address] PCP - General Internal Medicine 12/26/14 13, Pharmacist [address] [place] [address] Pharmacist Pharmacy 03/20/20 Jose Ramon Contreras MD [address] [place] [address] Specialty Phone Operator Cardiology 06/14/20 Linus Madrid MD [address] [phone] (Fax) Specialty Phone Operator Cardiology 07/23/21 Nancy Sales MD [address] [place] [address] Specialty Phone Operator Pulmonary Disease 08/21/22 Natalia Gaffney MD [address] [place] [address] Specialty Phone Operator Rheumatology 08/21/22 Tamra Mock, RN [address] [place] [address] Medical Translator Internal Medicine 01/15/23 Extermination Inspector Relationship Specialty Start Date End Date Macey Stack MD [address] [place] [address] PCP - General Internal Medicine 12/26/14 13, Pharmacist [address] [place] [address] Pharmacist Pharmacy 03/20/20 Jose Ramon Contreras MD [address] [place] [address] (Fax) Specialty Phone Operator Cardiology 06/14/20 Linus Madrid MD [address] [address] Specialty Phone Operator Cardiology 07/23/21 Nancy Sales MD [address] [place] [address] Specialty Phone Operator Pulmonary Disease 08/21/22 Natalia Gaffney MD [address] [address] Specialty Phone Operator Rheumatology 08/21/22 Tamra Mock RN [address] [place] [address] Medical Translator Internal Medicine 01/15/23 Extermination Inspector Relationship Specialty Start Date End Date Macey Stack MD [address] [place] [address] PCP - General Internal Medicine 12/26/14 13, Pharmacist [address] [place] [address] Pharmacist Pharmacy 03/20/20 Jose Ramon Contreras MD [address] [place] [address] Specialty Phone Operator Cardiology 06/14/20 Linus Madrid MD [address] [address] Specialty Phone Operator Cardiology 07/23/21 Nancy Sales MD [address] [facility] [place] [address] Specialty Phone Operator Pulmonary Disease 08/21/22 Natalia Gaffney MD [address] [facility] [place] [address] Specialty Phone Operator Rheumatology 08/21/22 Tamra Mock RN [address] [place] [address] Medical Translator Internal Medicine 01/15/23 Extermination Inspector Relationship Specialty Start Date End Date Macey Stack MD [address] [place] [address] PCP - General Internal Medicine 12/26/14 13, Pharmacist [phone] [place] [address] Pharmacist Pharmacy 03/20/20 Jose Ramon Contreras MD [address] [place] [address] (Fax) Specialty Phone Operator Cardiology 06/14/20 Linus Madrid MD [address] [phone] (Fax) Specialty Phone Operator Cardiology 07/23/21 Nancy Sales MD [address] [place] [address] Specialty Phone Operator Pulmonary Disease 08/21/22 Natalia Gaffney MD [address] [facility] [address] [place] [address] Specialty Phone Operator Rheumatology 08/21/22 Tamra Mock, RN [address] [place] [address] Medical Translator Internal Medicine 01/15/23 Extermination Inspector Relationship Specialty Start Date End Date Macey Stack MD [address] [place] [address] PCP - General Internal Medicine 12/26/14 13, Pharmacist [address] [place] [address] Pharmacist Pharmacy 03/20/20 Jose Ramon Contreras MD [address] [place] [address] (Fax) Specialty Phone Operator Cardiology 06/14/20 Linus Madrid MD [address] [phone] (Fax) Specialty Phone Operator Cardiology 07/23/21 Nancy Sales MD [address] [place] [address] Specialty Phone Operator Pulmonary Disease 08/21/22 Natalia Gaffney MD [address] [place] [address] Specialty Phone Operator Rheumatology 08/21/22 Tamra Mock RN [address] [place] [address] Medical Translator Internal Medicine 01/15/23 Extermination Inspector Relationship Specialty Start Date End Date Macey Stack MD [address] [place] [address] PCP - General Internal Medicine 12/26/14 13, Pharmacist [address] [place] [address] Pharmacist Pharmacy 03/20/20 Jose Ramon Contreras MD [address] [place] [address] Specialty Phone Operator Cardiology 06/14/20 Linus Madrid MD [address] [phone] Specialty Phone Operator Cardiology 07/23/21 Nancy Sales MD [address] [place] [address] Specialty Phone Operator Pulmonary Disease 08/21/22 Natalia Gaffney MD [address] [address] Specialty Phone Operator Rheumatology 08/21/22 Tamra Mock RN [address] [place] [phone] Medical Translator Internal Medicine 01/15/23 Extermination Inspector Relationship Specialty Start Date End Date Macey Stack MD [address] [place] [address] PCP - General Internal Medicine 12/26/14, Pharmacist [address] [place] [address] Pharmacist Pharmacy 03/20/20 Jose Ramon Contreras MD [address] [place] [address] Specialty Phone Operator Cardiology 06/14/20 Linus Madrid MD [address] [phone] Specialty Phone Operator Cardiology 07/23/21 Nancy Sales MD [address] [place] [address] Specialty Phone Operator Pulmonary Disease 08/21/22 Natalia Gaffney MD [address] [place] [address] Specialty Phone Operator Rheumatology 08/21/22 Tamra Mock, VIKY [address] [place] [address] Medical Translator Internal Medicine 01/15/23 Extermination Inspector Relationship Specialty Start Date End Date Macey Stack MD [address] [place] [address] PCP - General Internal Medicine 12/26/14, Pharmacist [address] [place] [address] Pharmacist Pharmacy 03/20/20 Jose Ramon Contreras MD [address] [place] [address] (Fax) Specialty Phone Operator Cardiology 06/14/20 Linus Madrid MD [address] [address] Specialty Phone Operator Cardiology 07/23/21 Nancy Sales MD [address] [place] [address] Specialty Phone Operator Pulmonary Disease 08/21/22 Natalia Gaffney MD [address] [address] [place] [id number] Specialty Phone Operator Rheumatology 08/21/22 Tamra Mock, VIKY [address] [place], [place] [address] Medical Translator Internal Medicine 01/15/23 Extermination Inspector Relationship Specialty Start Date End Date Macey Stack MD [address] [place] [address] PCP - General Internal Medicine 12/26/14 13, Pharmacist [address] [place] [address] Pharmacist Pharmacy 03/20/20 Jose Ramon Contreras MD [address] [place] [address] Specialty Phone Operator Cardiology 06/14/20 Linus Madrid MD [address] [phone] Specialty Phone Operator Cardiology 07/23/21 Nancy Sales MD [address] [place] [address] Specialty Phone Operator Pulmonary Disease 08/21/22 Natalia Gaffney MD [address] [place] [address] Specialty Phone Operator Rheumatology 08/21/22 Tamra Mock, RN [address] [place] [address] Medical Translator Internal Medicine 01/15/23 Extermination Inspector Relationship Specialty Start Date End Date Macey Stack MD [address] [place] [address] PCP - General Internal Medicine 12/26/14 13, Pharmacist [address] [place] [address] Pharmacist Pharmacy 03/20/20 Jose Ramon Contreras MD [address] [place] [address] Specialty Phone Operator Cardiology 06/14/20 Linus Madrid MD [address] [phone] Specialty Phone Operator Cardiology 07/23/21 Nancy Sales MD [address] [place] [address] Specialty Phone Operator Pulmonary Disease 08/21/22 Natalia Gaffney MD [address] [place] [address] Specialty Phone Operator Rheumatology 08/21/22 Tamra Mock, VIKY [address] [place] [address] Medical Translator Internal Medicine 01/15/23 Extermination Inspector Relationship Specialty Start Date End Date Macey Stack MD [facility] [place] [address] PCP - General Internal Medicine 12/26/14 13, Pharmacist [address] [place] [address] Pharmacist Pharmacy 03/20/20 Jose Ramon Contreras MD [address] [place] [address] (Fax) Specialty Phone Operator Cardiology 06/14/20 Linus Madrid MD [address] [phone] (Fax) Specialty Phone Operator Cardiology 07/23/21 Nancy Sales MD [address] [place] [address] Specialty Phone Operator Pulmonary Disease 08/21/22 Natalia Gaffney MD [address] [facility] [address] [place] [address] Specialty Phone Operator Rheumatology 08/21/22 Tamra Mock, RN [address] [place] [address] Medical Translator Internal Medicine 01/15/23 Extermination Inspector Relationship Specialty Start Date End Date Macey Stack MD [address] [place] [address] PCP - General Internal Medicine 12/26/14 13, Pharmacist [address] [place] [address] Pharmacist Pharmacy 03/20/20 Jose Ramon Contreras MD [address] [place] [address] (Fax) Specialty Phone Operator Cardiology 06/14/20 Linus Madrid MD [address] [place] [phone] Specialty Phone Operator Cardiology 07/23/21 Nancy Sales MD [address] [place], [place] [phone] Specialty Phone Operator Pulmonary Disease 08/21/22 Natalia Gaffney MD [address] [facility] [address] [place], [place] [address] Specialty Phone Operator Rheumatology 08/21/22 Tamra Mock, VIKY [address] [place], [place] [address] Medical Translator Internal Medicine 01/15/23 FOR RECORDS PERTAINING TO [...] BE BASED ON THE PRIMARY CLINICAL RECORDS. [employer] [facility]. provides no warranty or guarantee of the accuracy or completeness of information in this document.
--- NOTE | 2023-08-21 19:00 | NURSING ---
Emergency documentation 08/21/23 3393
--- NOTE | 2023-08-21 20:25 | ECHOD_ITS ---
Reason For Study: CHF Procedure This was a 2D Doppler, Color Flow transthoracic echocardiogram. The study was technically difficult. Exam performed portable in patient room. Left Ventricle Normal LV size. Left ventricular systolic function is lower limits of normal. The left ventricular ejection fraction is 50 %. No regional wall motion abnormalities noted. Right Ventricle Normal size and thickness. Normal systolic function. Atria Normal left atrium. The right atrium is severely enlarged. Mitral Valve Bioprosthetic mitral valve. Tricuspid Valve Normal tricuspid valve. Mild (1+) tricuspid valve insufficiency. Pulmonary artery systolic pressure is 40 mmHg. Aortic Valve Trisinus/trileaflet aortic valve. Mild (1+) eccentric aortic valve insufficiency. Pulmonic Valve Normal pulmonic valve. Great Vessels Moderately dilated aortic root. Normal arch. The pulmonary artery is normal size. Inferior vena cava collapse with respiration. Pericardium/Pleural No pericardial effusion. MMode/2D Measurements & Calculations LVIDd: 5.9 cm IVSd: 1.0 cm Ao root diam: 4.5 cm LVIDs: 4.5 cm LVPWd: 0.95 cm RVDd: 4.2 cm FS: 22.7 % LVAd ap4: 30.9 cm2 LVAd ap2: 33.9 cm2 SV(MOD-sp4): 47.7 ml LVLd ap4: 8.9 cm LVLd ap2: 9.0 cm EDV(MOD-sp4): 88.9 ml EDV(MOD-sp2): 107.1 ml EDV(sp4-el): 91.1 ml EDV(sp2-el): 108.0 ml LVAs ap4: 19.2 cm2 LVAs ap2: 22.2 cm2 LVLs ap4: 7.6 cm LVLs ap2: 8.1 cm ESV(MOD-sp4): 41.2 ml ESV(MOD-sp2): 53.2 ml ESV(sp4-el): 41.2 ml ESV(sp2-el): 51.7 ml EF(MOD-sp4): 53.7 % EF(MOD-sp2): 50.3 % EF(sp4-el): 54.8 % SV(MOD-sp2): 53.9 ml SV(sp4-el): 50.0 ml LA dimension(2D): 5.3 cm TAPSE: 1.7 cm RA A4 area: 35.6 cm2 Doppler Measurements & Calculations MV E max andrew: 147.0 cm/sec Lat Peak E' Andrew: 10.5 cm/sec Med Peak E' Andrew: 10.2 cm/sec E/E' lat: 14.0 E/E' med: 14.4 MV V2 max: 165.3 cm/sec Ao V2 max: 113.4 cm/sec AI max andrew: 430.5 cm/sec MV max P.9 mmHg Ao max P.2 mmHg AI max P.2 mmHg MV V2 mean: 77.0 cm/sec Ao V2 mean: 75.9 cm/sec AI dec slope: 271.1 cm/sec2 MV mean P.4 mmHg Ao mean P.7 mmHg AI P1/2t: 465.2 msec MV V2 VTI: 39.3 cm Ao V2 VTI: 25.6 cm AV (velocity ratio): 0.83 LV V1 max: 94.0 cm/sec PA V2 max: 87.2 cm/sec TR max andrew: 301.2 cm/sec LV V1 max P.5 mmHg PA V2 mean: 60.9 cm/sec TR max P.3 mmHg LV V1 mean P.6 mmHg LV V1 mean: 59.5 cm/sec LV V1 VTI: 21.1 cm ECHO/Echo Complete Interpretation Summary The left ventricular ejection fraction is 50 %. Normal LV size. Left ventricular systolic function is lower limits of normal. Pulmonary artery systolic pressure is 40 mmHg. Bioprosthetic mitral valve. Ordering Physician: Patti Benton Referring Physician: Alejandra Lee Performed By: Tahira [place], WINNIE, RVT
[2023-08-21 21:29] LABS: Troponin-I HS 26 pg/mL (3.0-78.0)
[2023-08-21] MEDS: 0.9% Saline Lock 10 ML Syringe IV (21:31)
[2023-08-21] MEDS: Carvedilol 3.125 MG TABLET PO (21:31)
[2023-08-21 23:43] LABS: Troponin-I HS 29 pg/mL (3.0-78.0)
[2023-08-22 03:03] VITALS: BMI 24.5
[2023-08-22 03:25] VITALS: BP 115/66; PULSE 58; RESP 16; TEMP 36.4; O2SAT 95
[2023-08-22 03:59] LABS: Absolute Lymphocyte Count 1.21 X10^3/uL (0.83-4.51); Absolute Neutrophil Count 6.8 X10^3/uL (2.0-7.7); Basophil# 0.06 X10^3/uL; Basophil% 0.6 % (0-1); Eosinophils% 5.2 % (0-5); Hematocrit 33.6 % (40-54); Hemoglobin 11.2 g/dL (13.0-16.5); Lymphocyte # 1.21 X10^3/ul (0.83-4.51); Lymphocyte % 12.5 % (19-41); Mean Corp Hgb Conc 33.3 g/dL (32-36); Mean Corpuscular Hgb 31.9 pg (27.0-32.0); Mean Corpuscular Volume 95.7 fL (80-94); Mean Platelet Vol. 10.1 fl (6.2-12.0); Monocyte# 1.06 X10^3/uL; NRBC Flagged by Analyzer 0 % (0-5); Neutrophil # 6.79 X10^3/uL (2.7-7.7); Neutrophil % 70.1 % (47-70); Platelet Count 197 K/mm3 (150-450); RBC Distribution Width CV 14.9 % (11.6-14.6); RBC Distribution Width SD 52.4 fl (35.1-43.9); Red Blood Count 3.51 M/mm3 (4.6-6.2); White Blood Count 9.7 K/mm3 (4.4-11.0)
[2023-08-22 04:08] LABS: Prothrombin Time (Protime)PT. 42.2 SECONDS (11.7-14.9)
[2023-08-22 04:18] LABS: Troponin-I HS 32 pg/mL (3.0-78.0)
[2023-08-22 04:25] LABS: International Normalized Ratio 4.3
[2023-08-22 04:33] LABS: ALB/GLOB Ratio 0.7 RATIO (0.9-2.4); AST(SGOT) 34 U/L (15-37); Alanine Aminotransfer ALT/SGPT 15 U/L (16-61); Albumin, Serum 2.7 g/dL (3.2-5.0); Alkaline Phosphatase 367 U/L (45-117); Anion Gap 6 (5-15); BUN 27 mg/dL (7-18); BUN/Creat Ratio 23.3 RATIO (10-20); Calcium,Total 8.3 mg/dL (8.5-10.1); Chloride 100 mmol/L (98-107); Cholesterol 86 mg/dL (200); Creatinine, Serum 1.16 mg/dL (0.70-1.30); EST Glomerular Filtration Rate 64 mL/min (>60); Est Glom Filt Rate - Afr Amer 78 mL/min (>60); Globulin 3.9 g/dL (2.2-4.2); Glucose 102 mg/dL (74-106); High Density Lipoprotein 33 mg/dL; Potassium 4.1 mmol/L (3.5-5.1); Protein, Total 6.6 g/dL (6.4-8.2); Sodium Level 135 mmol/L (136-145); Triglycerides 68 mg/dL; Very Low Density Lipoprotein 14 mg/dL (5-40)
[2023-08-22 07:56] VITALS: O2SAT 95
[2023-08-22 09:15] VITALS: BP 112/63; PULSE 71; RESP 18; TEMP 36.4; O2SAT 94
[2023-08-22] MEDS: Fluticasone 0.05% 1 SPRAY NASAL.SRY NASAL (09:19)
[2023-08-22] MEDS: 0.9% Saline Lock 10 ML Syringe IV ×2 (09:20→17:30)
[2023-08-22] MEDS: PARoxetine 10 MG Tablet PO (09:21)
[2023-08-22] MEDS: Atorvastatin Calcium 20 MG Tablet PO (09:21)
[2023-08-22] MEDS: Furosemide 40 MG/4 ML Vial IV ×2 (09:21→17:30)
[2023-08-22] MEDS: Potassium Chloride Oral Tablet 10 MEQ PO (09:21)
[2023-08-22] MEDS: Pantoprazole Sodium 20 MG Tablet 40 MG PO (09:21)
[2023-08-22] MEDS: Carvedilol 3.125 MG TABLET PO ×2 (09:21→21:23)
[2023-08-22] MEDS: Menthol/Lanolin/Calamine/Znox 113 GM Tube 1 APPLIC TOPICAL ×3 (09:22→17:29)
[2023-08-22 15:10] VITALS: BP 115/72; PULSE 82; RESP 18; TEMP 37; O2SAT 94
--- NOTE | 2023-08-22 16:50 | CASEMGMT ---
RN?CM?SUPERVISOR TUMBLERS?CM?to room to meet with patient for initial transition planning/care coordination?assessment.?RN?CM?introduced self and role at [facility].? Pt voices understanding and consents to?assessment?at this time.? Pt resting in bed in no distress at this time.? Pt is A/O at this time and answers all questions appropriately.?? Care providers, pharmacy, and demographics verified/updated at this time. PCP: Dr Lee Specialists: Dr Castano-[facility] cardiology/Abi. Pt states he sees a [facility] assistant men's soccer coach as well. He could not remember name of physician, but states he thinks it is Dr Simpson . [facility] Insurance: [employer] Prescription Benefit:?yes Living Will/HPOA:?Pt states he has a LW and HPCOA, who is his , Jesus. LNOK: , Jesus. 2 daughters: Hattie [place] and Deisy Piage. is currently a patient @ [facility] and plan is for her to go to a SNF or [facility] and pt is aware. Living Arrangements: Pt lives w/his and [id number] in 2-story home w/5 total steps to enter. Pt states his bro-in-law drives for the [employer] and is not home often. Pt reports he is indep w/ADL's and manages his own medications. He states he and his share home mgnt tasks and go grocery shopping together. Transportation:?Pt states he drives, but his does not like him to. does not drive. Bro-in-law will take him home @ discharge. DME: ?States has the following DME available, but does not use: shower chair, BSC, cane, walker. He states his has a medical alert button, but he does not and does not feel he needs one. He did state he could use hers while she is away from home, if needed. He does not have home O2. Discussed home o2 set-up process, should he qualify for home O2 @ discharge. He voices understanding. He states does not have a preference of DME co and stated to use [employer] when informed they are affiliated w/[facility]. He states he had a pulse ox @ home but does not know where it is and states he can afford to purchase another one. Pt states no need for further DME at this time.? HHC/SNF: No hx of either. Discussed discharge planning and made aware of therapy recommendations for OP therapy. Pt is interested in this and would like a script for this. Script prepared and placed on chart for MD to sign. Script to be provided to pt before discharging home. Pt states he can drive himself to OP therapy, although his does not like him driving. Pt made aware of [facility] van transportation to [facility] if he chooses to go there for therapy and he was provided w/the van transport info/contact #. Pt wishes to return home and states has no further concerns with going home at time of discharge and denies further discharge planning/needs.? He states he feels he will be safe at home, even w/his being away for awhile. Advised pt to ask for?CM?if any further questions/concerns/needs arise.? Voices understanding. PLAN:??Home w/script for OP therapy Follow for possible Home O2 @ discharge. Will need home ambulatory testing done. Green sheet on chart for home O2, she he qualify, and for OP therapy script to be given to pt once signed by MD. Amy AGUILLONN?RN?CM
--- NOTE | 2023-08-22 17:15 | PCM.PN.HOSP ---
Reason for Visit Reason for Visit: Diagnoses Heart failure, unspecified (08/21/23) Subjective Subjective Patient seen at bedside this morning. Was going to work with physical therapy shortly after my interview with him. Sitting comfortably at the edge of the bed, no acute distress. Breathing comfortably on 4 L nasal cannula at rest. Patient states he feels improved today in comparison to on admission. Reports good urine output on IV diuretics. Does feel weaker than his baseline but is looking forward to working with therapy today. No other acute concerns. Objective Data Objective Data Vital Signs: Vital Signs Temp Pulse Resp BP Pulse Ox O2 Del Method O2 Flow Rate 98.6 F 82 18 115/72 94 Nasal Cannula 4 08/22/23 15:10 08/22/23 15:10 08/22/23 15:10 08/22/23 15:10 08/22/23 15:10 08/22/23 15:10 08/22/23 15:10 Oxygen Flow Rate (L/min) 4 Oxygen Delivery Method Nasal Cannula Weight: 79.7 kg Body Mass Index (BMI) 24.5 Intake & Output: Intake and Output for Last 24 Hours 08/20/23 08/21/23 08/22/23 23:59 23:59 23:59 Intake Total 120 / 120 120 / 120 Output Total 350 / 350 550 / 550 Balance -230 / -230 -430 / -430 Lab / Micro Data 08/22/23 03:35 08/22/23 03:35 Labs: Laboratory Results - last 24 hr 08/21/23 20:54: Troponin I High Sens 26 08/21/23 23:15: Troponin I High Sens 29 08/22/23 03:35: WBC 9.7, RBC 3.51 L, Hgb 11.2 L, Hct 33.6 L, MCV 95.7 H, MCH 31.9, MCHC 33.3, RDW Std Deviation 52.4 H, RDW Coeff of Darnell 14.9 H, Plt Count 197, MPV 10.1, Immature Gran % (Auto) 0.600, Neut % (Auto) 70.1 H, Lymph % (Auto) 12.5 L, [place] % (Auto) 11.0 H, Eos % (Auto) 5.2 H, Baso % (Auto) 0.6, Absolute Neuts (auto) 6.8, Absolute Lymphs (auto) 1.21, Nucleated RBC % 0, PT 42.2 H, INR 4.3 H*, Sodium 135 L, Potassium 4.1, Chloride 100, Carbon Dioxide 29.0, Anion Gap 6, BUN 27 H, Creatinine 1.16, Estim Creat Clear Calc 55.00, Est GFR (MDRD) Af Amer 78, Est GFR (MDRD) Non-Af 64, BUN/Creatinine Ratio 23.3 H, Glucose 102, Calcium 8.3 L, Total Bilirubin 1.90 H, AST 34, ALT 15 L, Alkaline Phosphatase 367 H, Troponin I High Sens 32, Total Protein 6.6, Albumin 2.7 L, Globulin 3.9, Albumin/Globulin Ratio 0.7 L, Triglycerides 68, Cholesterol 86, LDL Cholesterol 39, VLDL Cholesterol 14, HDL Cholesterol 33 L, TSH 1.20 Micro: Microbiology 08/21/23 11:31 Mucosa - Nose SARS-CoV-2, Influenza & RSV (PCR) - Final Radiography Diagnostic Testing: Radiology Impression Echocardiogram 08/21/23 20:25 Interpretation Summary The left ventricular ejection fraction is 50 %. Normal LV size. Left ventricular systolic function is lower limits of normal. Pulmonary artery systolic pressure is 40 mmHg. Bioprosthetic mitral valve. Ordering Physician: Patti Benton Referring Physician: Alejandra Lee Performed By: Tahira Middleton, RDCS, RVT Physical Exam Const alert, no apparent distress and average body habitus General Appearance: cooperative and comfortable HEENT normocephalic, head/scalp atraumatic, hearing grossly normal bilaterally and nasal mucous membranes and turbinates normal Eyes PERRL, EOMs intact bilaterally and conjunctivae normal Neck full ROM, no lymphadenopathy and supple Lymph Lymphatic: no lymphadenopathy noted Chest inspection of chest normal Resp normal respiratory effort Resp Narrative: Decreased breath sounds bilaterally with mild crackles noted, no wheezing noted. Cardio regular rate, regular rhythm, no murmurs and peripheral pulses 2+ throughout GI normal to inspection, nondistended, normoactive bowel sounds, soft to palpation, non-tender and non-distended Back/Spine normal ROM Extremity normal to inspection and full ROM Extremity Narrative: +1-2 nonpitting edema noted. Skin no rashes or lesions noted Neuro no focal motor deficits and no sensory deficits noted Speech: speech normal Psych mental status grossly normal Assessment & Plan Assessment/Plan (1) CHF (congestive heart failure): (2) Hypoxia: PLAN: Plan Patient is a 77-year-old male who presented to [facility] ED on 08/21/2023 with worsening dyspnea on exertion and increased fatigue. 1. Acute decompensated HFpEF with acute hypoxia Chest x-ray on admit showed diffuse bilateral airspace disease likely secondary to pulmonary edema. Not on home O2, requiring up to 4 L nasal cannula on admit to maintain oxygen saturations greater than 90%. BNP 243. On home torsemide 20 mg daily, reports taking this appropriately. Echo 08/22 showed EF 50%, LV systolic function lower limit of normal, pulmonary artery systolic pressure 40 mmHg, bioprosthetic mitral valve noted. ? Continue IV Lasix 40 mg twice daily for now. Monitor urine output and daily BMP. Monitor oxygen saturation, wean as able. Will likely need home O2 eval prior to discharge. 2. Debility, history of cognitive impairment ? Lives at home with [id number] and . notably is currently in the hospital for left leg fracture. Independent with ADLs, but per family has been having worsening memory issues recently. PT/OT/case management following. Planning for home on discharge with either home health care or outpatient physical therapy. 3. Paroxysmal atrial fibrillation and history of mitral valve replacement on Coumadin, supratherapeutic INR ? INR 3.4 on admit, worsened to INR 4.3 on 08/22. Goal INR 2.5-3.5. Holding home Coumadin for now, restart when able. Continue home Coreg. Chronic medical conditions: ? Hypertension, hyperlipidemia: Continue home Coreg and statin. ? GERD: Continue home PPI. ? CKD stage II: Creatinine 1.16 on admit, baseline creatinine 1.0-1.2. Stable. ? History of sick sinus syndrome s/p pacemaker placement ? Chronic macrocytic anemia: Hemoglobin 11.1 on admit, baseline hemoglobin 11-12, stable. DVT prophylaxis: Holding warfarin given supratherapeutic INR as noted above, restart when able CODE STATUS: DNR CCA, DNI Expected disposition: Home, 1 to 2 days Total clinical time spent by myself addressing the patient's medical issues, reviewing all the data, and collaborating with patient's care team: 35 minutes. Charges/Coding Visit Charges Inpatient E&M: 05499 Subs Hosp L2
[2023-08-22 21:10] VITALS: BP 119/63; PULSE 66; RESP 18; TEMP 37.2; O2SAT 98
[2023-08-22] MEDS: Acetaminophen 325 MG Tablet 650 MG PO (21:23)
[2023-08-23] VITALS (9 sets, daily range): BP systolic 101–131; BP diastolic 56–76; PULSE 59–68; RESP 16–18; TEMP 36.4–37.1; O2SAT 88–99; BMI 23.8
[2023-08-23 08:47] LABS: Anion Gap 8 (5-15); BUN 32 mg/dL (7-18); BUN/Creat Ratio 29.1 RATIO (10-20); Calcium,Total 8.5 mg/dL (8.5-10.1); Chloride 99 mmol/L (98-107); EST Glomerular Filtration Rate 69 mL/min (>60); Est Glom Filt Rate - Afr Amer 83 mL/min (>60); Glucose 87 mg/dL (74-106); Potassium 3.9 mmol/L (3.5-5.1); Sodium Level 135 mmol/L (136-145)
[2023-08-23] MEDS: PARoxetine 10 MG Tablet PO (10:40)
[2023-08-23] MEDS: Furosemide 40 MG/4 ML Vial IV ×2 (10:40→17:48)
[2023-08-23] MEDS: Carvedilol 3.125 MG TABLET PO ×2 (10:40→22:21)
[2023-08-23] MEDS: Pantoprazole Sodium 20 MG Tablet 40 MG PO (10:40)
[2023-08-23] MEDS: Atorvastatin Calcium 20 MG Tablet PO (10:40)
[2023-08-23] MEDS: Potassium Chloride Oral Tablet 10 MEQ PO (10:40)
[2023-08-23] MEDS: Senna/Docusate Sodium 1 Tablet 2 TABLET PO (10:44)
[2023-08-23] MEDS: Acetaminophen 325 MG Tablet 650 MG PO ×2 (10:45→22:22)
[2023-08-23 17:47] LABS: International Normalized Ratio 3.7; Prothrombin Time (Protime)PT. 36.9 SECONDS (11.7-14.9)
--- NOTE | 2023-08-23 19:33 | PCM.PN.HOSP ---
Reason for Visit Reason for Visit: Diagnoses Heart failure, unspecified (08/21/23) Hypoxemia (08/21/23) Subjective Subjective Patient was seen and examined today, he remains on nasal cannula oxygen at 4 L, he does not complain of any chest pain or shortness of breath at rest. Patient is currently on IV furosemide. Objective Data Objective Data Vital Signs: Vital Signs Temp Pulse Resp BP Pulse Ox O2 Del Method O2 Flow Rate 97.7 F L 60 16 116/61 94 Nasal Cannula 2 08/23/23 17:44 08/23/23 17:44 08/23/23 17:44 08/23/23 17:44 08/23/23 17:44 08/23/23 17:44 08/23/23 17:44 Oxygen Flow Rate (L/min) 2 Oxygen Delivery Method Nasal Cannula Weight: 77.3 kg Body Mass Index (BMI) 23.8 Intake & Output: Intake and Output for Last 24 Hours 08/21/23 08/22/23 08/23/23 23:59 23:59 23:59 Intake Total 120 / 120 580 / 580 960 / 960 Output Total 350 / 350 1525 / 1525 1400 / 1400 Balance -230 / -230 -945 / -945 -440 / -440 Lab / Micro Data 08/22/23 03:35 08/23/23 05:30 Labs: Laboratory Results - last 24 hr 08/23/23 05:30: Sodium 135 L, Potassium 3.9, Chloride 99, Carbon Dioxide 28.0, Anion Gap 8, BUN 32 H, Creatinine 1.10, Estim Creat Clear Calc 58.00, Est GFR (MDRD) Af Amer 83, Est GFR (MDRD) Non-Af 69, BUN/Creatinine Ratio 29.1 H, Glucose 87, Calcium 8.5 08/23/23 16:53: PT 36.9 H, INR 3.7 Micro: Microbiology 08/21/23 11:31 Mucosa - Nose SARS-CoV-2, Influenza & RSV (PCR) - Final Physical Exam Const alert, oriented x3, no apparent distress, average body habitus and healthy appearing General Appearance: cooperative, well kempt and well developed Orientation / Consciousness: awake, oriented to person, oriented to place and oriented to time HEENT normocephalic, head/scalp atraumatic and moist oral mucous membranes Eyes PERRL, EOMs intact bilaterally and conjunctivae normal Neck supple, no JVD, thyroid normal and no carotid bruits General: trachea midline Resp normal respiratory effort, no retractions and no use of accessory muscles Resp Narrative: Fine rales are noted at the bases bilaterally on inspiration Auscultation: rales; Negative for rhonchi or wheezes Cardio regular rate, regular rhythm, S1 normal heart sound, S2 normal heart sound, no murmurs, no rub and no gallops GI normal to inspection, nondistended, normoactive bowel sounds, soft to palpation, non-tender and non-distended Extremity no clubbing, cyanosis or edema Skin no rashes or lesions noted General Skin Exam: no breakdown Neuro oriented x3, CN's II-XII intact bilaterally, moves all extremities, no focal motor deficits and no sensory deficits noted Sensorium / Orientation: awake and alert Speech: speech normal Psych affect normal Assessment & Plan Assessment/Plan (1) Hypoxia: PLAN: Plan 1. Acute on chronic diastolic congestive heart failure-patient will remain on IV Lasix at this time, chest x-ray will be repeated tomorrow #2 hypoxia secondary to #1-patient's pulse ox will be monitored, patient is on nasal cannula oxygen at this time #3 paroxysmal atrial fibrillation, patient is on Coumadin at this time, INR is elevated today and his Coumadin was held today, INR will be repeated tomorrow #3 essential hypertension-patient will remain on his home medication #4 history of cognitive impairment-etiology unclear, complicates care, medical course, recovery, and prognosis #5 coagulopathy secondary to Coumadin usage-patient's INR today was elevated at 3.7, patient's Coumadin will be held today, INR will be rechecked tomorrow Total clinical time spent by myself addressing the patient's medical issues, reviewing all of his data, and collaborating with patient's care team: 35 minutes Charges/Coding Visit Charges Inpatient E&M: 97407 Subs Hosp L2
[2023-08-24] VITALS (11 sets, daily range): BP systolic 102–110; BP diastolic 51–69; PULSE 62–75; RESP 16–18; TEMP 36.3–37.3; O2SAT 87–98; BMI 24.0
--- NOTE | 2023-08-24 05:55 | RAD_ITS ---
EXAM: XR CHEST, 1 VIEW CLINICAL INDICATION: CHF TECHNIQUE: Frontal view of the chest. COMPARISON: XR Chest dated 08/21/2023 FINDINGS: LUNGS AND PLEURAL SPACES: Stable bilateral pulmonary opacities suggestive of pneumonia. HEART: Stable cardiomegaly. MEDIASTINUM: No mediastinal or hilar mass. BONES/JOINTS: No acute abnormality. RAD/Chest 1 View (Portable) IMPRESSION: No interval change. Electronically Signed: Demetris Walker MD at 8:47 EST ,
[2023-08-24 07:01] LABS: International Normalized Ratio 3.7; Prothrombin Time (Protime)PT. 37.3 SECONDS (11.7-14.9)
[2023-08-24] MEDS: Potassium Chloride Oral Tablet 10 MEQ PO (10:23)
[2023-08-24] MEDS: Pantoprazole Sodium 20 MG Tablet 40 MG PO (10:23)
[2023-08-24] MEDS: Carvedilol 3.125 MG TABLET PO ×2 (10:23→21:06)
[2023-08-24] MEDS: Furosemide 40 MG/4 ML Vial IV ×2 (10:23→17:32)
[2023-08-24] MEDS: PARoxetine 10 MG Tablet PO (10:23)
[2023-08-24] MEDS: Atorvastatin Calcium 20 MG Tablet PO (10:23)
[2023-08-24 10:31] LABS: AST(SGOT) 33 U/L (15-37); Alanine Aminotransfer ALT/SGPT 13 U/L (16-61); Albumin, Serum 2.5 g/dL (3.2-5.0); Alkaline Phosphatase 357 U/L (45-117); Anion Gap 8 (5-15); BUN 36 mg/dL (7-18); BUN/Creat Ratio 37.4 RATIO (10-20); Bilirubin, Direct 0.49 mg/dL (0.00-0.30); Calcium,Total 8.6 mg/dL (8.5-10.1); Chloride 99 mmol/L (98-107); Creatinine, Serum 0.96 mg/dL (0.70-1.30); EST Glomerular Filtration Rate 80 mL/min (>60); Est Glom Filt Rate - Afr Amer 97 mL/min (>60); Estimated Creatinine Clearance 66.45 ml/min; Globulin 4.1 g/dL (2.2-4.2); Glucose 74 mg/dL (74-106); Protein, Total 6.6 g/dL (6.4-8.2); Sodium Level 136 mmol/L (136-145)
[2023-08-24 11:47] LABS: Magnesium 2.4 mg/dL (1.6-2.6)
--- NOTE | 2023-08-24 19:01 | PCM.PN.HOSP ---
Reason for Visit Reason for Visit: Diagnoses Heart failure, unspecified (08/21/23) Hypoxemia (08/21/23) Subjective Subjective Patient was seen and examined today, he is currently on room air, he does not appear short of breath at rest. According to nursing, patient's is in the hospital presently and there may be some question whether the patient is able to take care of himself if he goes home-patient evidently has a history of dementia, I will have to check with case management tomorrow, in the meantime I have elected to continue the patient's IV diuresis. His INR was elevated again at 3.7 today, his Coumadin is being held. Objective Data Objective Data Vital Signs: Vital Signs Temp Pulse Resp BP Pulse Ox O2 Del Method O2 Flow Rate 98.8 F 75 18 110/67 93 Room Air 2 08/24/23 16:13 08/24/23 16:13 08/24/23 16:13 08/24/23 16:13 08/24/23 17:31 08/24/23 17:31 08/24/23 17:30 Oxygen Flow Rate (L/min) 2 Oxygen Delivery Method Room Air Weight: 78.1 kg Body Mass Index (BMI) 24.0 Intake & Output: Intake and Output for Last 24 Hours 08/22/23 08/23/23 08/24/23 23:59 23:59 23:59 Intake Total 580 / 580 960 / 960 450 / 450 Output Total 1525 / 1525 1400 / 1400 Balance -945 / -945 -440 / -440 450 / 450 Lab / Micro Data 08/22/23 03:35 08/25/23 05:30 Labs: Laboratory Results - last 24 hr 08/24/23 05:17: PT 37.3 H, INR 3.7, Sodium 136, Potassium 4.0, Chloride 99, Carbon Dioxide 29.0, Anion Gap 8, BUN 36 H, Creatinine 0.96, Estim Creat Clear Calc 66.45, Est GFR (MDRD) Af Amer 97, Est GFR (MDRD) Non-Af 80, BUN/Creatinine Ratio 37.4 H, Glucose 74, Calcium 8.6, Total Bilirubin 1.10 H, Direct Bilirubin 0.49 H, AST 33, ALT 13 L, Alkaline Phosphatase 357 H, Total Protein 6.6, Albumin 2.5 L, Globulin 4.1 01/14/24 05:30: Magnesium 2.4 Micro: Microbiology 08/21/23 11:31 Mucosa - Nose SARS-CoV-2, Influenza & RSV (PCR) - Final Physical Exam Narrative alert, oriented x3, no apparent distress, average body habitus and healthy appearing General Appearance: cooperative, well kempt and well developed Orientation / Consciousness: awake, oriented to person, oriented to place and oriented to time HEENT normocephalic, head/scalp atraumatic and moist oral mucous membranes Eyes PERRL, EOMs intact bilaterally and conjunctivae normal Neck supple, no JVD, thyroid normal and no carotid bruits General: trachea midline Resp normal respiratory effort, no retractions and no use of accessory muscles Resp Narrative: Fine rales are noted at the bases bilaterally on inspiration Auscultation: rales; Negative for rhonchi or wheezes, breath sounds are diminished on the left at the base Cardio regular rate, regular rhythm, S1 normal heart sound, S2 normal heart sound, no murmurs, no rub and no gallops GI normal to inspection, nondistended, normoactive bowel sounds, soft to palpation, non-tender and non-distended Extremity no clubbing, cyanosis or edema Skin no rashes or lesions noted General Skin Exam: no breakdown Neuro oriented x3, CN's II-XII intact bilaterally, moves all extremities, no focal motor deficits and no sensory deficits noted Sensorium / Orientation: awake and alert Speech: speech normal Psych affect normal Assessment & Plan Assessment/Plan (1) CHF (congestive heart failure): (2) Hypoxia: PLAN: Plan 1. Acute on chronic diastolic congestive heart failure-patient will remain on IV Lasix at this time, patient will be reevaluated tomorrow #2 hypoxia secondary to #1-patient's pulse ox will be monitored, patient is on nasal cannula oxygen at this time #3 paroxysmal atrial fibrillation- patient is on Coumadin at this time, INR is elevated today and his Coumadin was held today, INR will be repeated tomorrow #4 essential hypertension-patient will remain on his home medication #5 history of cognitive impairment-etiology unclear, complicates care, medical course, recovery, and prognosis #6 coagulopathy secondary to Coumadin usage-patient's INR today was elevated at 3.7, patient's Coumadin will be held today Total clinical time spent by myself addressing the patient's medical issues, reviewing all of his data, and collaborating with patient's care team: 35 minutes Charges/Coding Visit Charges Inpatient E&M: 23508 Subs Hosp L2
[2023-08-25] VITALS (7 sets, daily range): BP systolic 109–128; BP diastolic 62–78; PULSE 60–64; RESP 18; TEMP 36.6–36.8; O2SAT 92–97; BMI 23.4
[2023-08-25 06:36] LABS: Anion Gap 6 (5-15); BUN 36 mg/dL (7-18); BUN/Creat Ratio 34.6 RATIO (10-20); Calcium,Total 8.8 mg/dL (8.5-10.1); Chloride 99 mmol/L (98-107); Creatinine, Serum 1.04 mg/dL (0.70-1.30); EST Glomerular Filtration Rate 73 mL/min (>60); Est Glom Filt Rate - Afr Amer 88 mL/min (>60); Estimated Creatinine Clearance 61.34 ml/min; Glucose 89 mg/dL (74-106); Sodium Level 137 mmol/L (136-145)
[2023-08-25] MEDS: Potassium Chloride Oral Tablet 10 MEQ PO (09:01)
[2023-08-25] MEDS: Pantoprazole Sodium 20 MG Tablet 40 MG PO (09:01)
[2023-08-25] MEDS: Atorvastatin Calcium 20 MG Tablet PO (09:01)
[2023-08-25] MEDS: Carvedilol 3.125 MG TABLET PO ×2 (09:01→21:02)
[2023-08-25] MEDS: 0.9% Saline Lock 10 ML Syringe IV ×2 (09:02→18:36)
[2023-08-25] MEDS: Furosemide 40 MG/4 ML Vial IV ×2 (09:02→18:36)
[2023-08-25] MEDS: Fluticasone 0.05% 1 SPRAY NASAL.SRY NASAL (09:02)
[2023-08-25] MEDS: PARoxetine 10 MG Tablet PO (09:02)
--- NOTE | 2023-08-25 20:23 | PCM.PN.HOSP ---
Reason for Visit Reason for Visit: Diagnoses Heart failure, unspecified (08/21/23) Hypoxemia (08/21/23) Subjective Subjective Patient was seen and examined today, he remains on 2 L of oxygen, and reviewing the patient's imaging studies, patient had a CT of the chest done and 2020 which showed evidence of an ascending aortic aneurysm at 4.8 x 4.6 cm. I talked to his daughter in [place] today by phone, she does not recall him ever having that addressed surgically. She also confirmed to me that the patient does not have any history of dementia that was made as a diagnosis. It appears that his is concerned that he might be developing dementia due to memory lapses. Objective Data Objective Data Vital Signs: Vital Signs Temp Pulse Resp BP Pulse Ox O2 Del Method O2 Flow Rate 98 F 62 18 128/77 H 94 Nasal Cannula 2 08/25/23 16:00 08/25/23 16:00 08/25/23 16:00 08/25/23 18:34 08/25/23 16:00 08/25/23 16:00 08/25/23 16:00 Oxygen Flow Rate (L/min) 2 Oxygen Delivery Method Nasal Cannula Weight: 76.3 kg Body Mass Index (BMI) 23.4 Intake & Output: Intake and Output for Last 24 Hours 08/23/23 08/24/23 08/25/23 23:59 23:59 23:59 Intake Total 960 / 960 870 / 870 990 / 990 Output Total 1400 / 1400 Balance -440 / -440 870 / 870 990 / 990 Lab / Micro Data 08/22/23 03:35 08/25/23 05:30 Labs: Laboratory Results - last 24 hr 08/25/23 05:30: Sodium 137, Potassium 4.0, Chloride 99, Carbon Dioxide 32.0, Anion Gap 6, BUN 36 H, Creatinine 1.04, Estim Creat Clear Calc 61.34, Est GFR (MDRD) Af Amer 88, Est GFR (MDRD) Non-Af 73, BUN/Creatinine Ratio 34.6 H, Glucose 89, Calcium 8.8 Micro: Microbiology 08/21/23 11:31 Mucosa - Nose SARS-CoV-2, Influenza & RSV (PCR) - Final Physical Exam Narrative alert, oriented x3, no apparent distress, average body habitus and healthy appearing General Appearance: cooperative, well kempt and well developed Orientation / Consciousness: awake, oriented to person, oriented to place and oriented to time HEENT normocephalic, head/scalp atraumatic and moist oral mucous membranes Eyes PERRL, EOMs intact bilaterally and conjunctivae normal Neck supple, no JVD, thyroid normal and no carotid bruits General: trachea midline Resp normal respiratory effort, no retractions and no use of accessory muscles Resp Narrative: Fine rales are noted at the bases bilaterally on inspiration Auscultation: rales; Negative for rhonchi or wheezes Cardio regular rate, regular rhythm, S1 normal heart sound, S2 normal heart sound, no murmurs, no rub and no gallops GI normal to inspection, nondistended, normoactive bowel sounds, soft to palpation, non-tender and non-distended Extremity no clubbing, cyanosis or edema Skin no rashes or lesions noted General Skin Exam: no breakdown Neuro oriented x3, CN's II-XII intact bilaterally, moves all extremities, no focal motor deficits and no sensory deficits noted Sensorium / Orientation: awake and alert Speech: speech normal Psych affect normal Assessment & Plan Assessment/Plan (1) CHF (congestive heart failure): (2) Hypoxia: PLAN: Plan 1. Acute on chronic diastolic congestive heart failure-patient will remain on IV Lasix at this time, patient will be reevaluated tomorrow #2 hypoxia secondary to #1-patient's pulse ox will be monitored, patient is on nasal cannula oxygen at this time #3 paroxysmal atrial fibrillation- patient is on Coumadin at this time, INR is elevated today and his Coumadin was held today, INR will be repeated tomorrow #4 essential hypertension-patient will remain on his home medication #5 Questionable history of cognitive impairment-I do not detect any evidence of cognitive impairment when talking with the patient today #6 coagulopathy secondary to Coumadin usage-patient's INR was not checked, I will order an INR for the morning #7 aortic aneurysm-I will order CTA of the chest as routine test, this will either be done tonight or tomorrow Total clinical time spent by myself addressing the patient's medical issues, reviewing all of his data, and collaborating with patient's care team: 35 minutes Capacity Legal Machine Operator Slitter Technician Reflex Medical hold order details:: IF a medical hold is selected below, a suggested order for a MEDICAL HOLD will reflex upon signing the document. Next of kin: [place] law dictates a PRIORITY LIST for identifying legal decision-maker/legal next of kin in the following order (LNOK): 1st: The patient?s legal guardian, if any 2nd: The patient's spouse (if status is questionable, consult Risk Management) 3rd: The patient?s adult child(saúl) (majority, if multiple children) 4th: The patient?s parents 5th: The patient?s adult siblings (majority, if multiple children siblings) Charges/Coding Visit Charges Inpatient E&M: 24487 Subs Hosp L2
--- NOTE | 2023-08-25 20:36 | CT_ITS ---
STUDY: CTA CHEST REASON FOR EXAM: Male, 77 years old. aortic aneurysm RADIATION DOSAGE (If Supplied By Facility): CTDIvol = ( 15.77 ) mGy, DLP = ( 808.05 ) mGycm TECHNIQUE: The examination was performed with the intravenous administration of IV 100mL Isovue-370. Post-processing of the angiographic images was performed, with multiplanar reformation and 3D reconstruction. Individualized dose optimization techniques were used for this CT. COMPARISON: 10/08/2019 FINDINGS: Status post median sternotomy. Left subclavian pacemaker. Normal enhancement of the main pulmonary artery and right and left pulmonary arteries. Normal enhancement of the bilateral peripheral pulmonary arteries. There is no demonstrated pulmonary embolism. There is prominence of the main pulmonary arteries without peripheral pulmonary vascular congestion, suggesting pulmonary hypertension. Dilatation ascending aorta with maximal diameter of 4.2 cm likely from chronic hypertension or aortic stenosis. There is no demonstrated aortic dissection. Normal heart and pericardium. Normal mediastinum. Normal hilar regions. Normal visualized trachea and bronchi. The lungs are well expanded. Bilateral diffuse upper lobe predominant patchy groundglass densities consistent with subsegmental atelectasis, pneumonitis, pulmonary edema, or ARDS. Normal pleura. Normal chest wall structures. Mild dextroscoliosis thoracic spine with degenerative disc disease. Normal visualized upper abdomen. CT/CTA Chest W/WO Contrast IMPRESSION: 1. No CT evidence of pulmonary embolism. 2. Bilateral subsegmental atelectasis, pneumonitis, pulmonary edema, or ARDS. Electronically Signed: Maxime Rubio MD at 22:57 EST ,
[2023-08-26] VITALS (7 sets, daily range): BP systolic 121–126; BP diastolic 61–83; PULSE 61–81; RESP 18; TEMP 36.7; O2SAT 89–94; BMI 23.6
[2023-08-26 08:24] LABS: Anion Gap 4 (5-15); BUN 34 mg/dL (7-18); BUN/Creat Ratio 34.2 RATIO (10-20); Chloride 101 mmol/L (98-107); Creatinine, Serum 0.99 mg/dL (0.70-1.30); EST Glomerular Filtration Rate 77 mL/min (>60); Est Glom Filt Rate - Afr Amer 93 mL/min (>60); Estimated Creatinine Clearance 64.44 ml/min; Glucose 89 mg/dL (74-106); Potassium 3.9 mmol/L (3.5-5.1); Sodium Level 137 mmol/L (136-145)
[2023-08-26 08:55] LABS: International Normalized Ratio 2.2; Prothrombin Time (Protime)PT. 24.7 SECONDS (11.7-14.9)
[2023-08-26] MEDS: Potassium Chloride Oral Tablet 10 MEQ PO (08:57)
[2023-08-26] MEDS: Carvedilol 3.125 MG TABLET PO (08:57)
[2023-08-26] MEDS: Pantoprazole Sodium 20 MG Tablet 40 MG PO (08:57)
[2023-08-26] MEDS: 0.9% Saline Lock 10 ML Syringe IV (08:58)
[2023-08-26] MEDS: PARoxetine 10 MG Tablet PO (08:58)
[2023-08-26] MEDS: Furosemide 40 MG/4 ML Vial IV (08:58)
[2023-08-26] MEDS: Atorvastatin Calcium 20 MG Tablet PO (08:58)
--- NOTE | 2023-08-26 14:03 | EX.PCM.CONCC ---
Assessment & Plan Assessment/Plan (1) Hypoxia: PLAN: Plan RECOMMENDATIONS: 1. Ongoing diuresis as tolerated by hemodynamics and renal function. 2. Send autoimmune workup as ordered. 3. Perform walking oximetry study prior to consideration for discharge home. 4. Outpatient pulmonary follow-up after discharge is warranted. 5. No additional pulmonary intervention or workup is required at this time. Will sign off accordingly. IMPRESSIONS: 1. Hypoxemia It does appear that the patient has some baseline interstitial lung disease with superimposed pulmonary edema. The patient has responded from a respiratory perspective to diuresis with improvement in his supplemental oxygen demands. Therefore, I do suspect that he likely has chronic interstitial lung disease with a component of pulmonary edema, which has responded to diuretic therapy. His interstitial lung disease does appear quite advanced. He did report that he was previously evaluated by a insurance account specialist, the name of which she does not recall and was apparently told that he had interstitial lung disease over a year ago. At this time, I do not have any prior pulmonary records and I am not clear as to what workup has been done previously. At this time, I would recommend that you continue to volume optimize the patient with diuretics. He should have a walking oximetry study prior to consideration for discharge home. I am going to plan to complete an autoimmune/vasculitis workup, the results of which should be available after his discharge. Ideally, the patient should follow-up in the pulmonary medicine clinic. I have asked the patient to review his records to clarify the name of his prior pulmonary provider so that we can obtain outside medical records to review what workup has been completed. Ultimately, the patient would need PFTs and will need to be monitored longitudinally for any further clinical decompensation. 2. Decompensated heart failure with preserved ejection fraction/paroxysmal atrial fibrillation Continue current medical therapy with diuretics as tolerated by hemodynamics and renal function. Continue Coumadin and monitor INR daily. 3. History of hypertension/aortic aneurysm/GERD/chronic kidney disease/valvular heart disease Complicates care, management, recovery and prognosis. Continue home medications as indicated. This note was generated with Black coination software. It may contain incorrect words, spelling, and punctuation that were not noted in checking the note before signing. HPI Consult Data Date of Consult: 08/26/23 HPI Narrative Reason for Consultation: Hypoxemia HPI Narrative: The patient is a 77-year-old male, with a history as outlined below, who presented initially to the emergency department on August 21 via EMS with generalized malaise, shortness of breath and hypoxemia. The patient has a known history of chronic kidney disease, GERD, sick sinus syndrome, chronic atrial fibrillation, valvular heart disease and interstitial lung disease. The patient reported that he was seen by a pulmonary provider in the past, but cannot recall their name. He indicated to me that he was last seen by this particular pulmonary provider approximately 1 year ago and was previously diagnosed with interstitial lung disease. When questioned specifically about the etiology of his ILD, the patient was not able to answer the question. He did report that he was not previously on supplemental oxygen at his baseline. The patient was initially admitted to the hospital and placed on diuretics over concerns for decompensated heart failure with preserved ejection fraction. The patient remains on scheduled diuretics and his baseline Coumadin therapy. He is currently requiring 1 L/min of supplemental oxygen. His renal function is stable. It does appear that his supplemental oxygen requirement has improved with ongoing diuresis. Surface echocardiogram from August 22, 2023 demonstrated normal LV size and function with an ejection fraction of 50%. Pulmonary artery systolic pressure was estimated to be 40 mmHg. CTA chest completed on August 25 demonstrated extensive bilateral groundglass densities with interlobular septal thickening and some traction bronchiectasis, all of which suggest a chronic interstitial lung process. [facility] Medical History Anxiety and depression Bradycardia Chronic fatigue Congestive heart failure (CHF) Dementia Dyspepsia Dyspnea on exertion H/O measles H/O sick sinus syndrome History of pneumonia as a child Hyperlipidemia Hypertension Inguinal hernia (~2011) Interstitial lung disease Mitral and aortic heart valve diseases, unspecified Mitral valve regurgitation Panic attacks Permanent atrial fibrillation Posterior vitreous detachment of both eyes Presence of cardiac pacemaker Shoulder impingement syndrome Home Medications carvedilol 3.125 mg tablet 3.125 mg PO BID blood pressure 08/27/17 [History Last Taken 08/21/23 09:00] citalopram 10 mg/5 mL oral solution 10 mg PO QDAY depression 08/27/17 [History Last Taken 08/20/23 21:00] fluticasone propionate 50 mcg/actuation nasal spray,suspension (Flonase Allergy Relief) 50 mcg intranasal ONCE allergy 08/27/17 [History Last Taken Unknown] warfarin 2 mg tablet 2.5 mg PO QDAY prevent blood clot 01/17/18 [History Last Taken 08/20/23 09:00 2.5 mg] atorvastatin 20 mg tablet (Lipitor) 20 mg PO DAILY cholesterol 04/22/22 [History Last Taken 08/20/23] pantoprazole 20 mg tablet,delayed release (Protonix) 40 mg PO DAILY acid reflux 04/22/22 [History Last Taken 08/19/23 09:00 20 mg] paroxetine HCl 10 mg tablet (Paxil) 10 mg PO DAILY depression 04/22/22 [History Last Taken 08/20/23 21:00] potassium chloride 10 mEq capsule,extended release 10 meq PO DAILY hypokalemia 04/22/22 [History Last Taken 08/20/23 09:00 10 mEq] sildenafil 25 mg tablet (Viagra) 25 mg PO DAILY erectile dysfunction 04/22/22 [History Last Taken Unknown] torsemide 20 mg tablet 20 mg PO DAILY edema 04/22/22 [History Last Taken 08/20/23 09:12 20 mg] Allergy/AdvReac Type Severity Reaction Status Date / Time No Known Allergies Allergy Verified 08/21/23 10:09 Family History Mother CAD (coronary artery disease) CVA (cerebral vascular accident) Heart disease Hypertension Father CAD (coronary artery disease) CVA (cerebral vascular accident) Heart disease Hypertension Surgical History (Updated 08/21/23 @ 13:[address] Patti Benton MD) History of back surgery (~2006) History of inguinal hernia repair Mitral valve replaced (~1989) S/P cardiac pacemaker procedure Social History (Updated 08/21/23 @ 13:[address] Patti Benton MD) household members: spouse Smoking Status: Never smoker alcohol intake: never substance use type: does not use ROS ROS Narrative 10 systems were reviewed with pertinent positives as noted in the HPI above. Physical Exam Const alert and no apparent distress General Appearance: cooperative HEENT normocephalic and head/scalp atraumatic Eyes PERRL, EOMs intact bilaterally and conjunctivae normal Neck supple General: trachea midline Chest inspection of chest normal Resp normal respiratory effort Auscultation: rales Cardio regular rate and regular rhythm GI normal to inspection, nondistended, normoactive bowel sounds Extremity no clubbing, cyanosis or edema Skin no rashes or lesions noted Neuro CN's II-XII intact bilaterally, moves all extremities and no focal motor deficits Psych cooperative and affect normal Lab / Micro Data 08/22/23 03:35 08/26/23 07:10 Labs: Laboratory Results - last 24 hr 08/26/23 07:10: PT 24.7 H, INR 2.2, Sodium 137, Potassium 3.9, Chloride 101, Carbon Dioxide 32.0, Anion Gap 4 L, BUN 34 H, Creatinine 0.99, Estim Creat Clear Calc 64.44, Est GFR (MDRD) Af Amer 93, Est GFR (MDRD) Non-Af 77, BUN/Creatinine Ratio 34.2 H, Glucose 89, Calcium 9.0 Imagaing Radiology Impression Chest CTA 08/25/23 20:36 IMPRESSION: 1. No CT evidence of pulmonary embolism. 2. Bilateral subsegmental atelectasis, pneumonitis, pulmonary edema, or ARDS. Electronically Signed: Maxime Rubio MD at 22:57 EST , [employer] Dispatcher Reflex Medical hold order details:: IF a medical hold is selected below, a suggested order for a MEDICAL HOLD will reflex upon signing the document. Next of kin: [place] law dictates a PRIORITY LIST for identifying legal decision-maker/legal next of kin in the following order (LNOK): 1st: The patient?s legal guardian, if any 2nd: The patient's spouse (if status is questionable, consult Risk Management) 3rd: The patient?s adult child(saúl) (majority, if multiple children) 4th: The patient?s parents 5th: The patient?s adult siblings (majority, if multiple children siblings) Charges/Coding Visit Charges Inpatient E&M: 29032 Init Hosp L3
--- NOTE | 2023-08-26 15:35 | DCINST_ITS ---
Discharge Instructions Diet Discharge Diet: No restrictions Activity Discharge Activity: Return to Normal Activity Weight Bearing Status: Full weight bearing Follow Up Care Test Results: Test results from this visit will be discussed in further detail at your follow- up appointment, if applicable. Discharge Plan Admission Admit Date/Time: 08/21/23 13:34 Primary Reason for Your Visit: Hypoxia, congestive heart failure Attending Provider: Basilio Hauser Primary Care Provider: Alejandra Lee Consulting Providers: Patti Benton; Nolan Lyons Instructions Additional Instructions / Restrictions: Start taking your warfarin on 08/27/2023 Discharge Orders/Prescriptions Prescriptions: New potassium chloride 10 mEq Tablet,Er Particles/Crystals 10 meq PO BIDCM Qty: 60 0RF torsemide 20 mg tablet 20 mg PO BID Qty: 60 0RF Continued fluticasone propionate [Flonase Allergy Relief] 50 mcg/actuation s pray,suspension 50 mcg INTRANASAL ONCE Hold Instructions: prn, last taken was last year citalopram 10 mg/5 mL solution 10 mg PO QDAY warfarin 2 mg tablet 2.5 mg PO QDAY Patient Comments: Wed and sat, takes 3mg carvedilol 3.125 mg tablet 3.125 mg PO BID paroxetine HCl [Paxil] 10 mg Tablet 10 mg PO DAILY atorvastatin [Lipitor] 20 mg Tablet 20 mg PO DAILY sildenafil [Viagra] 25 mg Tablet 25 mg PO DAILY Hold Instructions: last time taken was 9 months ago pantoprazole [Protonix] 20 mg Tablet,Delayed Release (Dr/Ec) 40 mg PO DAILY Discontinued potassium chloride 10 mEq Capsule, Extended Release 10 meq PO DAILY torsemide 20 mg Tablet 20 mg PO DAILY Referrals / Follow Up: Alejandra Lee MD [Primary Care Provider] - Abdullahi Estrada DO [Med Staff - Active Staff] - See Referral Note (In 2 weeks, call the office for an appointment, let them know you were seen in the hospital by Dr. Estrada) Disposition Disposition (needs filled in before D/C Order can be placed): Home, Self Care
--- NOTE | 2023-08-26 15:43 | CASEMGMT ---
BHARAT received a call from patient's Jesus. Jesus is worried about patient going home. Jesus expressed many concerns about patient and the home. BHARAT tried to understand Jesus's concerns, but it was difficult as she said so many things. BHARAT explained to Jesus that patient has been completely alert and oriented the whole time at [facility] and patient is walking around independently. Jesus did not comment on this. Jesus said any help would be appreciated. VIKY MACEDO was going to talk with patient to see if he needed anything. Patient had mentioned having someone come into the home to do an assessment on what they might need. BHARAT told Jesus that when she is getting ready for discharge from Rehab this might be something they do. Jesus is aware patient is being discharged home today. Rianna REYNA
--- NOTE | 2023-08-26 15:44 | PCM.DC.SUM ---
Providers Date of Admission: 08/21/23 Date of Discharge: 08/26/23 Primary Care Physician: Dr. Alejandra Lee MD Consultations 08/26/23 08:33 Consult: Bread Dumper / Pulmonary Medicine Routine Consulting Provider: Abdullahi Estrada Reason for Consult: hypoxia, pulmonary infiltrates EMERGENT Consult: No MD Notified: Yes Date Notified: 08/26/23 Time Notified: 08:33 Method of Notification: Text Reason For Visit: CHF EXACERBATION, HYPOXIA Diagnosis Discharge Diagnosis (1) Hypoxia: Status: Acute Code(s): R09.02 - Hypoxemia Plan 1. Acute on chronic diastolic congestive heart failure -patient will remain on IV Lasix at this time, patient will be reevaluated tomorrow #2 hypoxia secondary to #1-patient's pulse ox will be monitored, patient is on nasal cannula oxygen at this time #3 paroxysmal atrial fibrillation- patient is on Coumadin at this time, INR is elevated today and his Coumadin was held today, INR will be repeated tomorrow #4 essential hypertension-patient will remain on his home medication #5 Mild pulmonary hypertension #6 coagulopathy secondary to Coumadin usage-patient's INR was not checked, I will order an INR for the morning #7 aortic aneurysm-I will order CTA of the chest as routine test, this will either be done tonight or tomorrow Dementia was ruled out Total clinical time spent by myself addressing the patient's medical issues, reviewing all of his data, and collaborating with patient's care team: 35 minutes Medications at Discharge Home Medications carvedilol 3.125 mg tablet 3.125 mg PO BID blood pressure 08/27/17 citalopram 10 mg/5 mL oral solution 10 mg PO QDAY depression 08/27/17 fluticasone propionate 50 mcg/actuation nasal spray,suspension (Flonase Allergy Relief) 50 mcg intranasal ONCE allergy 08/27/17 warfarin 2 mg tablet 2.5 mg PO QDAY prevent blood clot 08/27/17 atorvastatin 20 mg tablet (Lipitor) 20 mg PO DAILY cholesterol 04/22/22 pantoprazole 20 mg tablet,delayed release (Protonix) 40 mg PO DAILY acid reflux 04/22/22 paroxetine HCl 10 mg tablet (Paxil) 10 mg PO DAILY depression 04/22/22 sildenafil 25 mg tablet (Viagra) 25 mg PO DAILY erectile dysfunction 04/22/22 potassium chloride 10 mEq tablet,extended release(part/cryst) 10 meq PO BIDCM #60 tabs 08/26/23 torsemide 20 mg tablet 20 mg PO BID #60 tabs 08/26/23 Hospital Course Operations None Procedures None Summary of Care Provided Minutes Spent on Discharge: 39 Hospital Course: This 77-year-old white male was seen in the emergency room at [facility] with complaints of generalized weakness and shortness of breath. Patient was on full anticoagulation secondary to history of atrial fibrillation. Patient was noted to have a saturation of 78% on room air, he was placed on oxygen on 4 L and his sats improved to 85%. Checks x-ray was obtained which showed diffuse bilateral airspace disease most likely secondary to CHF, patient's beta nitric peptide was elevated at 243. Patient was admitted for acute on chronic CHF, he was placed on IV Lasix, echocardiogram was obtained which showed a normal EF. There was mild pulmonary hypertension noted. Patient improved slowly during his hospitalization, his oxygen was finally able to be weaned. On 08/26/2023, patient was seen and examined: On examination he appeared in good health and spirits. Vital signs as documented. Skin warm and dry and without overt rashes. Neck without JVD, neck was supple, trachea midline, thyroid was normal. Lungs clear bilaterally, normal air movement was noted. Heart exam notable for regular rhythm, normal sounds and absence of murmurs, rubs or gallops. Abdomen unremarkable and without evidence of organomegaly, masses, or abdominal aortic enlargement. Bowel sounds are present, abdomen is not distended. Extremities nonedematous, no cyanosis was noted, no clubbing was noted. Neuro: Cranial nerves II through XII are grossly intact, no focal motor deficits were noted, sensation to light touch and pinprick intact, motor exam 5/5 throughout. Psych: Patient is alert and oriented x3, he does not appear anxious or depressed, he does not appear agitated. Patient was found to be stable for discharge home on 08/26/2023. Weight / BMI Weight Weight: 77 kg Body Mass Index (BMI) 23.6 ABG / Lab / Microbiology Data 08/22/23 03:35 08/26/23 07:10 Laboratory: Laboratory Results - last 24 hr 08/26/23 07:10: PT 24.7 H, INR 2.2, Sodium 137, Potassium 3.9, Chloride 101, Carbon Dioxide 32.0, Anion Gap 4 L, BUN 34 H, Creatinine 0.99, Estim Creat Clear Calc 64.44, Est GFR (MDRD) Af Amer 93, Est GFR (MDRD) Non-Af 77, BUN/Creatinine Ratio 34.2 H, Glucose 89, Calcium 9.0 08/26/23 14:47: Rheumatoid Factor 35.0 H Microbiology: Microbiology 08/21/23 11:31 Mucosa - Nose SARS-CoV-2, Influenza & RSV (PCR) - Final Radiography Diagnostic Testing: Radiology Impression Chest CTA 08/25/23 20:36 IMPRESSION: 1. No CT evidence of pulmonary embolism. 2. Bilateral subsegmental atelectasis, pneumonitis, pulmonary edema, or ARDS. Electronically Signed: Maxime Rubio MD at 22:57 EST Reading Location ID and State: [address] Tel , Service support , D/C Instructions Discharge Diet: No restrictions Weight Bearing Status: Full weight bearing Meaningful Use Info Meaningful Use Diagnoses (Choose all that apply): CHF CHF ESTHER/ARB ordered at discharge?: No Reason ESTHER/ARB not ordered?: Not indicated Documented LVEF (%): 50 Discharge Plan Admission Admit Date/Time: 08/21/23 13:34 Primary Reason for Your Visit: Hypoxia, congestive heart failure Attending Provider: Basilio Hauser Primary Care Provider: Alejandra Lee Consulting Providers: Patti Benton; Nolan Lyons Instructions Additional Instructions / Restrictions: Start taking your warfarin on 08/27/2023 Discharge Orders/Prescriptions Prescriptions: New potassium chloride 10 mEq Tablet,Er Particles/Crystals 10 meq PO BIDCM Qty: 60 0RF torsemide 20 mg tablet 20 mg PO BID Qty: 60 0RF Continued fluticasone propionate [Flonase Allergy Relief] 50 mcg/actuation spray,suspension 50 mcg INTRANASAL ONCE Hold Instructions: prn, last taken was last year citalopram 10 mg/5 mL solution 10 mg PO QDAY warfarin 2 mg tablet 2.5 mg PO QDAY Patient Comments: Wed and sat, takes 3mg carvedilol 3.125 mg tablet 3.125 mg PO BID paroxetine HCl [Paxil] 10 mg Tablet 10 mg PO DAILY atorvastatin [Lipitor] 20 mg Tablet 20 mg PO DAILY sildenafil [Viagra] 25 mg Tablet 25 mg PO DAILY Hold Instructions: last time taken was 9 months ago pantoprazole [Protonix] 20 mg Tablet,Delayed Release (Dr/Ec) 40 mg PO DAILY Discontinued potassium chloride 10 mEq Capsule, Extended Release 10 meq PO DAILY torsemide 20 mg Tablet 20 mg PO DAILY Referrals / Follow Up: Abdullahi Estrada DO [Med Staff - Active Staff] - See Referral Note (In 2 weeks, call the office for an appointment, let them know you were seen in the hospital by Dr. Estrada) LOLY CULVER NP-C [Non-Staff] - 09/01/23 9:20 am Disposition Disposition (needs filled in before D/C Order can be placed): Home, Self Care Charges/Coding Visit Charges Inpatient E&M: 88544 Disch Hosp >30min
--- NOTE | 2023-08-26 16:35 | PHA.DC.MR.R ---
Pharmacy [place] Med Reconciliation Pharmacy Service has performed discharge medication reconciliation for this patient. The patient's discharge medication list was reviewed for discrepancies and discrepancies were resolved. Medications at Discharge Home Medications carvedilol 3.125 mg tablet 3.125 mg PO BID blood pressure 08/27/17 citalopram 10 mg/5 mL oral solution 10 mg PO QDAY depression 08/27/17 fluticasone propionate 50 mcg/actuation nasal spray,suspension (Flonase Allergy Relief) 50 mcg intranasal ONCE allergy 08/27/17 warfarin 2 mg tablet 2.5 mg PO QDAY prevent blood clot 08/27/17 atorvastatin 20 mg tablet (Lipitor) 20 mg PO DAILY cholesterol 04/22/22 pantoprazole 20 mg tablet,delayed release (Protonix) 40 mg PO DAILY acid reflux 04/22/22 paroxetine HCl 10 mg tablet (Paxil) 10 mg PO DAILY depression 04/22/22 sildenafil 25 mg tablet (Viagra) 25 mg PO DAILY erectile dysfunction 04/22/22 potassium chloride 10 mEq tablet,extended release(part/cryst) 10 meq PO BIDCM #60 tabs 08/26/23 torsemide 20 mg tablet 20 mg PO BID #60 tabs 08/26/23
--- NOTE | 2023-08-26 16:48 | CASEMGMT ---
Patient has order for discharge. VIKY CM in to discuss needs at discharge. RN HELLEN reviewed progress with therapy and recommendation for outpatient therapy. Patient agreeable to outpatient therapy and prefers [facility]. Patient denies further needs. Patient states his brother in law can pick him. Patient states he has no further questions or concerns. VIKY MAECDO received script for Outpatient therapy and faxed order with request to call patient to schedule appointment. Script and [facility] information provided in discharge papers.
--- NOTE | 2023-08-27 13:19 | CCN.REFER ---
PATIENT AGREES TO PATIENT LINK AND CCN. HOME VISIT SCHEDULED FOR 08/29/23 @ 10:30.
[2023-08-28 11:08] LABS: ANTINUCLEAR ANTIBODIES DIRECT Negative (Negative)
[2023-08-28 14:09] LABS: CCP IgG Antibodies 8 units (0-19); Cytoplasmic Ab (C-ANCA) <1:20 titer (Neg:<1:20); Perinuclear Ab (P-ANCA) <1:20 titer (Neg:<1:20)
== END 2023-08-26 17:04 | disposition home or self-care (01) | DRG 291 ==
LOC: ED 13:28 → PCU 16:44
PROVIDERS: Hospitalist; Internal Medicine Critical Care Medicine; Admitting Provider Family Medicine; Emergency Provider Emergency Medicine; PCP Internal Medicine; Visit Provider Internal Medicine
DX: I13.0 Hypertensive heart and chronic kidney disease with heart failure and stage 1 through stage 4 chronic kidney disease, or unspecified chronic kidney disease (principal); I50.33 Acute on chronic diastolic (congestive) heart failure; J84.9 Interstitial pulmonary disease, unspecified; I27.20 Pulmonary hypertension, unspecified; I71.21 Aneurysm of the ascending aorta, without rupture; I48.0 Paroxysmal atrial fibrillation; D53.9 Nutritional anemia, unspecified; F32.A Depression, unspecified; E78.5 Hyperlipidemia, unspecified; J30.9 Allergic rhinitis, unspecified; K21.9 Gastro-esophageal reflux disease without esophagitis; N18.2 Chronic kidney disease, stage 2 (mild); R09.02 Hypoxemia; R79.1 Abnormal coagulation profile; T45.515A Adverse effect of anticoagulants, initial encounter; Y92.239 Unspecified place in hospital as the place of occurrence of the external cause; Z11.52 Encounter for screening for COVID-19; R53.81 Other malaise; Z79.01 Long term (current) use of anticoagulants; Z66 Do not resuscitate; F41.0 Panic disorder [episodic paroxysmal anxiety]; Z95.0 Presence of cardiac pacemaker
CPT/HCPCS: 36415; 71045; 71275; 80048; 80053; 80061; 80076; 83735; 83880; 84443; 84484; 85025; 85610; 86038; 86200; 86225; 86235; 86256; 86431; 87631; 93005; 93306; 94668; 97116; 97162; 97166; 97530; 99285; Q9967; A4216; J1940

== ENCOUNTER 2023-09-12 08:41 | Emergency (ER) | payer MEDICARE, SELFPAY ==
[2022-07-22 08:19] VITALS: BMI 24.4
[2023-09-12 08:41] VITALS: O2SAT 92
[2023-09-12 08:43] VITALS: BP 120/67; PULSE 70; RESP 16; TEMP 35.3; O2SAT 91; BMI 24.3
--- NOTE | 2023-09-12 09:08 | ED.VIS.DYS ---
HPI History of Present Illness Chief Complaint: Shortness of Breath Detail of Chief Complaint: Generalized fatigue. Informant: patient Onset/Context/Timing Onset: Days Context: gradual Timing: Continuous Quality: Positive for Dyspnea on exertion Current Severity: Mild Maximum Severity: Mild Associated Symptoms Negative for cough, fever or sore throat Chest Pain: Positive for None Narrative Narrative: 78-year-old male history of A-fib, CHF and some early dementia. He is on the blood thinner Coumadin. Complaining generalized weakness just states he feels exhausted with some mild shortness of breath. He denies any nausea, vomiting or diarrhea. No fever or chills. No melena. No chest pain. He seen at the [facility] facility. They called me this morning. They evaluated there and his pulse ox was in the 90s even with walking. He was admitted in August for A-fib and hypoxia. Currently his is in the rehab facility and is being moved to a different facility more long-term today. He is at home by himself. He has a daughter that lives in [place]. Patient is also being treated on oral antibiotics for pneumonia. PE Risk Factors: Negative for Cancer, OCP + Smoking + > 35, Prior DVT or PE, Recent immobilization, Recent surgery or Recent travel Prior similar symptoms: Yes Recent Illness/Hospitalization: Yes PFSH [facility] Medical History Anxiety and depression Bradycardia CHF (congestive heart failure) Chronic fatigue Congestive heart failure (CHF) Dyspepsia Dyspnea on exertion H/O measles H/O sick sinus syndrome History of pneumonia as a child Hyperlipidemia Hypertension Inguinal hernia (~2011) Interstitial lung disease Mitral and aortic heart valve diseases, unspecified Mitral valve regurgitation Panic attacks Permanent atrial fibrillation Posterior vitreous detachment of both eyes Presence of cardiac pacemaker Shoulder impingement syndrome Home Medications carvedilol 3.125 mg tablet 3.125 mg PO BID blood pressure 08/27/17 [History Last Taken 09/12/23] atorvastatin 20 mg tablet (Lipitor) 20 mg PO DAILY cholesterol 04/22/22 [History Last Taken 09/12/23] pantoprazole 20 mg tablet,delayed release (Protonix) 40 mg PO DAILY acid reflux 04/22/22 [History Last Taken 08/19/23 09:00 20 mg] potassium chloride 10 mEq tablet,extended release(part/cryst) 10 meq PO BIDCM #60 tabs 08/26/23 [Rx Last Taken 09/12/23] torsemide 20 mg tablet 20 mg PO BID #60 tabs 08/26/23 [Rx Last Taken 09/12/23] citalopram 20 mg tablet (Celexa) 20 mg PO DAILY 09/12/23 [History Last Taken 09/12/23] levofloxacin 500 mg tablet 500 mg PO DAILY antibiotic 09/12/23 [History Last Taken 09/12/23] lisinopril 10 mg tablet 10 mg PO QHS blood pressure 09/12/23 [History Last Taken 09/11/23] paroxetine HCl 20 mg tablet 20 mg PO DAILY depression 09/12/23 [History Last Taken 09/11/23] warfarin 2.5 mg tablet 2.5 mg PO SUMOTUTHFR blood thinner 09/12/23 [History Last Taken 09/11/23] warfarin 3 mg tablet (Jantoven) 3 mg PO WESA 09/12/23 [History Last Taken 09/10/23] Allergy/AdvReac Type Severity Reaction Status Date / Time No Known Allergies Allergy Verified 08/21/23 10:09 Family History Mother CAD (coronary artery disease) CVA (cerebral vascular accident) Heart disease Hypertension Father CAD (coronary artery disease) CVA (cerebral vascular accident) Heart disease Hypertension Surgical History History of back surgery (~2006) History of inguinal hernia repair Mitral valve replaced (~1989) S/P cardiac pacemaker procedure Social History household members: spouse Smoking Status: Never smoker alcohol intake: never substance use type: does not use ROS ROS ED ROS Narrative Fatigue. Short of breath. Review of Systems ROS Unobtainable: Denies due to encephalopathy Constitutional Constitutional ED: Denies chills Eyes Eyes: Denies blurry vision Cardiovascular Cardiovascular: Denies chest pain, palpitations or racing heartbeat Respiratory/Chest Respiratory/Chest: Reports dyspnea and dyspnea on exertion; Denies cough Gastrointestinal Gastrointestinal: Denies abdominal pain, constipation, diarrhea, melena, nausea or vomiting Genitourinary Genitourinary ED: Denies dysuria or hematuria Musculoskeletal Musculoskeletal: Denies arthralgias or back pain Integumentary Denies abscess Neurologic Neurologic: Denies headache(s) Psychiatric Psychiatric: Denies anxiety or depression Endocrine Endocrinology: Denies cold intolerance Hematologic/Lymphatic Hematologic/Lymphatic: Denies easy bleeding Allergic/Immunologic Allergic/Immunologic ED: Denies mouth swelling or tongue swelling EXAM Physical Exam Narrative Exam Narrative: 78-year-old male vital signs stable afebrile. Pulse ox 91% room air no hypoxia. H EENT exam unremarkable. Neck nontender no JVD. No lymphadenopathy. Lungs clear to auscultation bilaterally except for few scattered expiratory wheezes in the bases.. Heart regular rate about 70. No murmur. Chest wall and ribs nontender. Abdomen soft nontender. Moving all 4 extremities. Calves are nontender without edema or cords. Neurologically is awake and alert with no focal motor deficits. Well-appearing exam. Stable vital signs. Const Vital Signs: 09/12/23 08:43 09/12/23 08:41 09/12/23 08:41 Temperature 95.6 F L Temperature Source Temporal Pulse Rate 70 Respiratory Rate 16 Respiratory Effort Short of Breath Short of Breath Respiratory Depth Shallow Respiratory Pattern Normal Normal Blood Pressure 120/67 Blood Pressure Mean 84 Pulse Ox 91 Oxygen Delivery Method Room Air Room Air 09/12/23 09:06 09/12/23 11:02 Temperature 98.5 F Temperature Source Oral Pulse Rate 64 Respiratory Rate 17 Respiratory Effort Respiratory Depth Respiratory Pattern Blood Pressure 122/64 H Blood Pressure Mean 83 Pulse Ox 96 Oxygen Delivery Method Room Air Room Air Positive well nourished and well developed; Negative for obese, cachectic, contractures or unkempt General Appearance ED: well developed and NAD; Negative for unkempt, cachectic, contractures or pallor Nutritional Appearance: Negative for cachectic or obese HEENT Reports moist mucous membranes; Denies dry mucous membranes atraumatic; Negative for trauma or tenderness Mouth ED: No dry mucous membranes Mouth: No dry mucous membranes Eyes PERRL and EOMs intact bilaterally General Eye ED: Negative for pale conjunctiva or scleral icterus Neck no lymphadenopathy, supple, no meningeal signs and no JVD General: Negative for tenderness Lymph Lymphatic: Negative for other Chest Wall Chest: Negative for other Resp normal respiratory effort and clear to auscultation bilaterally Effort and Inspection: Negative for pain with movement Auscultation: wheezes; Negative for rales or rhonchi Cardio regular rate, regular rhythm, S1 normal heart sound, S2 normal heart sound and no murmurs Rate: Negative for bradycardia or tachycardic GI non-tender, non-distended and no masses Auscultation: normoactive bowel sounds Palpation: soft; Negative for tender or guarding Bladder / Kidney Exam: No other Back/Spine no CVA tenderness and normal to inspection General Back: Negative for CVA tenderness or tenderness Extremity normal to inspection General Extremety ED: Negative for edema or tenderness General Extremity: Negative for edema Neuro oriented x3 and CN's II-XII intact bilaterally Sensorium / Orientation: alert, oriented to person, oriented to place and oriented to time; Negative for orientation impaired, confused, lethargic or stuporous Speech: speech normal Motor Exam: strength 5/5 throughout Psych mental status grossly normal Appearance: Negative for unkempt Attitude: No agitated Mood & Affect: Negative for depressed, anxious or tearful Thought Process: normal thought process Skin no wounds and skin turgor normal General Skin Exam: Negative for jaundice or pallor Lesions: no lesions Rashes: no rashes Trauma: Negative for abrasion or laceration MDM MDM MDM Narrative Medical decision making narrative: 78-year-old male with fatigue and shortness of breath. Undergo cardiac workup including possible CHF but nothing on exam consistent with CHF. He has a few scattered wheezes. Will also get a Coumadin level obtained. Currently being treated with antibiotics for pneumonia. Patient has chronic A-fib. Repeat exam patient is doing well at 11:30 AM. Patient and I discussed all his test results. He needs increase his fluid intake. His chest x-ray shows chronic consistent with his history of pulmonary fibrosis. His EKG is chronic A-fib. He will continue on his current meds. Follow-up with his primary care physician. I spoke to his is currently in this hospital for femur fracture getting transferred to a long care facility until she rehabs. I also spoke to his daughter Hawa in [place]. Everyone is comfortable with the plan. History & Record Review Discussion w/independent historian: Patient Additional record(s) reviewed:: Prior inpatient record, Prior outpatient record, Prior ED visit and Prior labs Lab Data Attestation: I reviewed the patient's lab results. Lab results narrative: CBC shows white count 9. H&H 13.8 and 42.6. Platelets 174. Patient is on Coumadin PT 35 INR 3.5. Electrolytes show a gap of 3 BUN and creatinine of 28 and 1. Consistent with mild dehydration. Glucose 76. Troponin is normal at 21. BNP 138. Chest x-ray chronic airspace disease no acute change and similar to prior chest x-rays. Labs: Laboratory Results - last 24 hr 09/12/23 07:56 WBC 9.0 RBC 4.29 L Hgb 13.8 Hct 42.6 MCV 99.3 H MCH 32.2 H MCHC 32.4 RDW Std Deviation 58.9 H RDW Coeff of Darnell 16.1 H Plt Count 174 MPV 10.2 Immature Gran % (Auto) 0.700 Neut % (Auto) 60.0 Lymph % (Auto) 21.6 Wake % (Auto) 10.8 H Eos % (Auto) 6.3 H Baso % (Auto) 0.6 Absolute Neuts (auto) 5.4 Absolute Lymphs (auto) 1.94 Nucleated RBC % 0 PT 35.5 H INR 3.5 Sodium 136 Potassium 4.0 Chloride 106 Carbon Dioxide 27.0 Anion Gap 3 L BUN 28 H Creatinine 1.09 Estim Creat Clear Calc 57.57 Est GFR (MDRD) Af Amer 84 Est GFR (MDRD) Non-Af 69 BUN/Creatinine Ratio 25.7 H Glucose 76 Calcium 9.2 Troponin I High Sens 21 B-Natriuretic Peptide 138.6 H Radiography Chest X-Ray - ED: 1 View, Read by ED Physician, Normal, Heart, Mediastinum and Bony Structures Diagnostic Testing: Clinical Impression(s) from Imaging Studies Chest X-Ray 09/12/23 09:10 IMPRESSION: Stable diffuse bilateral airspace disease suggestive of a chronic scarring. Electronically Signed: Jaziel Hamm MD at 9:34 EST , Chest x-ray, portable, single view interpreted both myself and the radiologist shows no acute process. Chronic airspace disease seen on prior x-rays. Left-sided pacemaker. History of pulmonary fibrosis. Rhythm Strip Rhythm Strip: A-fib Rate: 63 Ectopy: PVC(s) EKG Initial EKG: Attestation: I personally reviewed and interpreted this EKG as follows: Interpretation: No Acute Injury Pattern and Atrial Fibrillation Comments: A-fib rate of 63. Occasional PVC. No ST elevation. Discharge Plan Triage Chief Complaint: Shortness of Breath Other Complaint: Weakness ED Provider: Eusebio Logan Dx/Rx/DC Orders Clinical Impression: Generalized weakness, Chronic anticoagulation, Chronic a-fib, Mild dehydration Instructions: ED AFIB, ED Dehydration (Adult) Prescriptions: No Action carvedilol 3.125 mg tablet 3.125 mg PO BID atorvastatin [Lipitor] 20 mg Tablet 20 mg PO DAILY pantoprazole [Protonix] 20 mg Tablet,Delayed Release (Dr/Ec) 40 mg PO DAILY Patient Comments: pt states he takes as needed potassium chloride 10 mEq Tablet,Er Particles/Crystals 10 meq PO BIDCM Qty: 60 0RF Patient Comments: pt states he only takes in the morning torsemide 20 mg tablet 20 mg PO BID Qty: 60 0RF Patient Comments: pt states he only takes in the morning citalopram [Celexa] 20 mg tablet 20 mg PO DAILY Patient Comments: pt unsure of strength, thinks its 20mg warfarin 2.5 mg tablet 2.5 mg PO SUMOTUTHFR Patient Comments: pt states he takes 2.5mg warfarin [Jantoven] 3 mg tablet 3 mg PO WESA Patient Comments: pt states he takes 2.5mg every day except he takes 3mg on friday and friday levofloxacin 500 mg tablet 500 mg PO DAILY Rx Instructions: start:09/04/23 end:09/14/23 lisinopril 10 mg tablet 10 mg PO QHS paroxetine HCl 20 mg tablet 20 mg PO DAILY Primary Care Provider: Alejandra Lee Referrals: Alejandra Lee MD [Primary Care Provider] - 1 Week if not improving Activity Restrictions/Additional Instructions: Make sure you are drinking plenty of water and fluids you are a little dehydrated. Continue your regular medications. Follow-up with your doctor to ensure you are doing well or return if you are feeling worse. I did speak with your daughter via phone. Disposition Disposition: Home, Self Care
--- NOTE | 2023-09-12 09:10 | RAD_ITS ---
STUDY: X-RAY CHEST REASON FOR EXAM: Male, 78 years old. Chest pain TECHNIQUE: Single AP portable view of the chest. COMPARISON: Comparison is made with prior study dated August 24, 2023. FINDINGS: EKG electrodes are seen. Stable bilateral airspace disease suggestive of bilateral pulmonary fibrosis. There is no demonstrated pleural abnormality. Sternal cerclage wires and vascular clips are present from a prior sternotomy and coronary artery bypass graft procedure (CABG). A left-sided dual-chamber pacemaker is seen. Cardiomegaly. Normal mediastinum and shawna. Normal visualized pulmonary arteries. Normal visualized aortic arch and descending thoracic aorta. There are degenerative changes of the visualized thoracic spine. Normal visualized ribs, clavicles, and shoulders. There is no demonstrated abnormality of the visualized soft tissue structures of the upper abdomen. RAD/Chest 1 View (Portable) IMPRESSION: Stable diffuse bilateral airspace disease suggestive of a chronic scarring. Electronically Signed: Jaziel Hamm MD at 9:34 EST ,
[2023-09-12 09:25] LABS: International Normalized Ratio 3.5; Prothrombin Time (Protime)PT. 35.5 SECONDS (11.7-14.9)
[2023-09-12 09:35] LABS: Absolute Lymphocyte Count 1.94 X10^3/uL (0.83-4.51); Absolute Neutrophil Count 5.4 X10^3/uL (2.0-7.7); Basophil# 0.05 X10^3/uL; Basophil% 0.6 % (0-1); Eosinophil# 0.57 X10^3/uL; Eosinophils% 6.3 % (0-5); Hematocrit 42.6 % (40-54); Hemoglobin 13.8 g/dL (13.0-16.5); Lymphocyte # 1.94 X10^3/ul (0.83-4.51); Lymphocyte % 21.6 % (19-41); Mean Corp Hgb Conc 32.4 g/dL (32-36); Mean Corpuscular Hgb 32.2 pg (27.0-32.0); Mean Corpuscular Volume 99.3 fL (80-94); Mean Platelet Vol. 10.2 fl (6.2-12.0); Monocyte# 0.97 X10^3/uL; Monocyte% 10.8 % (0-10); NRBC Flagged by Analyzer 0 % (0-5); Platelet Count 174 K/mm3 (150-450); RBC Distribution Width CV 16.1 % (11.6-14.6); RBC Distribution Width SD 58.9 fl (35.1-43.9); Red Blood Count 4.29 M/mm3 (4.6-6.2)
[2023-09-12 09:36] LABS: Anion Gap 3 (5-15); BUN 28 mg/dL (7-18); BUN/Creat Ratio 25.7 RATIO (10-20); Calcium,Total 9.2 mg/dL (8.5-10.1); Chloride 106 mmol/L (98-107); Creatinine, Serum 1.09 mg/dL (0.70-1.30); EST Glomerular Filtration Rate 69 mL/min (>60); Est Glom Filt Rate - Afr Amer 84 mL/min (>60); Estimated Creatinine Clearance 57.57 ml/min; Glucose 76 mg/dL (74-106); Sodium Level 136 mmol/L (136-145); Troponin-I HS 21 pg/mL (3.0-78.0)
[2023-09-12 10:00] LABS: BNP,B-Type NATRIURETIC PEPTIDE 138.6 pg/mL (0-100)
[2023-09-12 11:02] VITALS: BP 122/64; PULSE 64; RESP 17; TEMP 36.9; O2SAT 96
== END 2023-09-12 11:50 | disposition home or self-care (01) ==
PROVIDERS: Emergency Provider Emergency Medicine; PCP Internal Medicine; Visit Provider Emergency Medicine
DX: R53.1 Weakness (principal); F03.90 Unspecified dementia, unspecified severity, without behavioral disturbance, psychotic disturbance, mood disturbance, and anxiety; I11.0 Hypertensive heart disease with heart failure; I50.9 Heart failure, unspecified; I48.20 Chronic atrial fibrillation, unspecified; J18.9 Pneumonia, unspecified organism; E86.0 Dehydration; Z11.52 Encounter for screening for COVID-19; Z79.01 Long term (current) use of anticoagulants; Z79.899 Other long term (current) drug therapy; Z95.0 Presence of cardiac pacemaker
CPT/HCPCS: 99285; 71045; 80048; 83880; 84484; 85025; 85610; 93005; A4216

== ENCOUNTER 2023-09-15 12:28 | Inpatient (IN) | payer MEDICARE, SELFPAY ==
[2022-07-22 08:19] VITALS: BMI 24.4
[2023-09-15] VITALS (11 sets, daily range): BP systolic 101–132; BP diastolic 52–71; PULSE 53–74; RESP 16–28; TEMP 36.3–36.8; O2SAT 85–98; BMI 24.1; BMI 23.6
--- NOTE | 2023-09-15 12:50 | RAD_ITS ---
STUDY: X-RAY CHEST REASON FOR EXAM: Male, 78 years old. Chest pain. TECHNIQUE: Single frontal view of the chest. COMPARISON: 09/12/2023 FINDINGS: Stable diffuse interstitial pattern with patchy parenchymal opacities peripherally. Scarring at both bases, unchanged. There is no demonstrated pleural abnormality. Cardiomegaly, sternotomy wires and dual lead cardiac pacer, unchanged. Stable aortic tortuosity. Stable prominent central pulmonary arteries. No abnormality of the visualized soft tissue structures of the upper abdomen. RAD/Chest 1 View (Portable) IMPRESSION: Stable chest with no interval emergence of a more acute finding. Findings may represent interstitial edema/congestive failure and follow-up chest imaging to resolution is recommended. Electronically Signed: Vel Nassar MD at 13:17 EST ,
[2023-09-15 13:25] LABS: Absolute Lymphocyte Count 1.71 X10^3/uL (0.83-4.51); Absolute Neutrophil Count 4.5 X10^3/uL (2.0-7.7); Basophil# 0.05 X10^3/uL; Basophil% 0.7 % (0-1); Eosinophil# 0.35 X10^3/uL; Eosinophils% 4.7 % (0-5); Hematocrit 41.9 % (40-54); Hemoglobin 13.7 g/dL (13.0-16.5); Lymphocyte # 1.71 X10^3/ul (0.83-4.51); Lymphocyte % 23.2 % (19-41); Mean Corp Hgb Conc 32.7 g/dL (32-36); Mean Corpuscular Hgb 32.2 pg (27.0-32.0); Mean Corpuscular Volume 98.4 fL (80-94); Monocyte# 0.78 X10^3/uL; Monocyte% 10.6 % (0-10); NRBC Flagged by Analyzer 0 % (0-5); Neutrophil # 4.45 X10^3/uL (2.7-7.7); Neutrophil % 60.4 % (47-70); Platelet Count 186 K/mm3 (150-450); RBC Distribution Width CV 16.4 % (11.6-14.6); RBC Distribution Width SD 59.7 fl (35.1-43.9); Red Blood Count 4.26 M/mm3 (4.6-6.2); White Blood Count 7.4 K/mm3 (4.4-11.0)
[2023-09-15 13:44] LABS: Anion Gap 3 (5-15); BUN 24 mg/dL (7-18); BUN/Creat Ratio 20.7 RATIO (10-20); Calcium,Total 9.1 mg/dL (8.5-10.1); Chloride 103 mmol/L (98-107); Creatinine, Serum 1.16 mg/dL (0.70-1.30); EST Glomerular Filtration Rate 64 mL/min (>60); Est Glom Filt Rate - Afr Amer 78 mL/min (>60); Estimated Creatinine Clearance 54.09 ml/min; Glucose 89 mg/dL (74-106); Potassium 4.4 mmol/L (3.5-5.1); Sodium Level 133 mmol/L (136-145); Troponin-I HS (w/2H Reflex) 18 pg/mL (3.0-78.0)
[2023-09-15 13:52] LABS: International Normalized Ratio 2.6; Prothrombin Time (Protime)PT. 27.9 SECONDS (11.7-14.9)
--- NOTE | 2023-09-15 14:30 | EDS_ITS ---
HPI History of Present Illness Chief Complaint: Shortness of Breath Informant: patient Onset/Context/Timing Onset: Days (4) Context: gradual and exertion Timing: Continuous Quality: Positive for Dyspnea on exertion Worsened by: Exertion Relieved by: Nothing Associated Symptoms cough; Negative for rhinorrhea, post nasal drip, ear pain, fever, sore throat, chills, sweats, clear sputum, white sputum, yellow sputum or green sputum Chest Pain: Positive for Continuous and Tightness Narrative Narrative: Patient presents with shortness of breath that has been getting worse over the last 4 days. Patient states it is worse with any exertion. Patient states it is gradually getting worse. Patient admits to some tightness in his chest. Patient admits to a cough but denies any sputum production. Patient denies any fevers or chills. Patient denies any sore throat or rhinorrhea. Patient states that his tightness is all the way across his chest. Patient states nothing makes it better nothing makes it worse. PE Risk Factors: Negative for Cancer, OCP + Smoking + > 35, Prior DVT or PE, Recent immobilization, Recent surgery or Recent travel [facility] Medical History Anxiety and depression Bradycardia CHF (congestive heart failure) Chronic fatigue Congestive heart failure (CHF) Dyspepsia Dyspnea on exertion H/O measles H/O sick sinus syndrome History of pneumonia as a child Hyperlipidemia Hypertension Inguinal hernia (~2011) Interstitial lung disease Mitral and aortic heart valve diseases, unspecified Mitral valve regurgitation Panic attacks Permanent atrial fibrillation Posterior vitreous detachment of both eyes Presence of cardiac pacemaker Shoulder impingement syndrome Home Medications carvedilol 3.125 mg tablet 3.125 mg PO BID blood pressure 08/27/17 [History Last Taken 09/12/23] atorvastatin 20 mg tablet (Lipitor) 20 mg PO DAILY cholesterol 04/22/22 [History Last Taken 09/12/23] pantoprazole 20 mg tablet,delayed release (Protonix) 40 mg PO DAILY acid reflux 04/22/22 [History Last Taken 08/19/23 09:00 20 mg] potassium chloride 10 mEq tablet,extended release(part/cryst) 10 meq PO BIDCM #60 tabs 08/26/23 [Rx Last Taken 09/12/23] torsemide 20 mg tablet 20 mg PO BID #60 tabs 08/26/23 [Rx Last Taken 09/12/23] lisinopril 10 mg tablet 10 mg PO QHS blood pressure 09/12/23 [History Last Taken 09/11/23] paroxetine HCl 20 mg tablet 20 mg PO DAILY depression 09/12/23 [History Last Taken 09/11/23] warfarin 2.5 mg tablet 2.5 mg PO SUMOTUTHFR blood thinner 09/12/23 [History Last Taken 09/11/23] warfarin 3 mg tablet (Jantoven) 3 mg PO WESA 09/12/23 [History Last Taken 09/10/23] Allergy/AdvReac Type Severity Reaction Status Date / Time No Known Allergies Allergy Verified 08/21/23 10:09 Family History Mother CAD (coronary artery disease) CVA (cerebral vascular accident) Heart disease Hypertension Father CAD (coronary artery disease) CVA (cerebral vascular accident) Heart disease Hypertension Surgical History History of back surgery (~2006) History of inguinal hernia repair Mitral valve replaced (~1989) S/P cardiac pacemaker procedure Social History household members: spouse Smoking Status: Never smoker alcohol intake: never substance use type: does not use ROS ROS ED Constitutional Constitutional ED: Denies chills or fever(s) Eyes Eyes: Denies blurry vision or change in vision ENT ENT ED: Denies rhinorrhea or sore throat Cardiovascular Cardiovascular: Reports chest pain; Denies palpitations Respiratory/Chest Respiratory/Chest: Reports cough and dyspnea Gastrointestinal Gastrointestinal: Denies nausea or vomiting Genitourinary Genitourinary ED: Denies dysuria or hematuria Musculoskeletal Musculoskeletal: Denies back pain or neck pain Integumentary Denies abscess or rash Neurologic Neurologic: Denies headache(s) or weakness Allergic/Immunologic Allergic/Immunologic ED: Denies mouth swelling or urticaria EXAM Physical Exam Const Vital Signs: 09/15/23 12:28 09/15/23 13:03 09/15/23 13:03 Temperature 97.3 F L Temperature Source Temporal Pulse Rate 60 60 Respiratory Rate 16 22 H Respiratory Effort Respiratory Depth Respiratory Pattern Blood Pressure 122/69 H Blood Pressure Mean 86 Pulse Ox 92 98 85 Oxygen Delivery Method Room Air Nasal Cannula Room Air Oxygen Flow Rate (L/min) 2 09/15/23 13:08 09/15/23 14:56 09/15/23 15:19 Temperature Temperature Source Pulse Rate 59 L 65 Respiratory Rate 28 H 18 Respiratory Effort Short of Breath Respiratory Depth Normal Respiratory Pattern Normal Blood Pressure 121/70 H 118/64 Blood Pressure Mean 87 82 Pulse Ox 98 98 Oxygen Delivery Method Room Air Room Air Nasal Cannula Oxygen Flow Rate (L/min) 2 2 09/15/23 16:34 09/15/23 17:07 09/15/23 18:25 Temperature Temperature Source Pulse Rate 63 64 74 Respiratory Rate 22 H 24 H 26 H Respiratory Effort Respiratory Depth Respiratory Pattern Blood Pressure 132/70 H 114/56 L 105/65 Blood Pressure Mean 90 75 78 Pulse Ox 97 97 94 Oxygen Delivery Method Nasal Cannula Nasal Cannula Nasal Cannula Oxygen Flow Rate (L/min) 2 2 2 Positive well nourished and well developed General Appearance ED: well developed and NAD HEENT Reports moist mucous membranes Neck supple and no meningeal signs Resp normal respiratory effort and clear to auscultation bilaterally Cardio regular rate Rhythm: abnormal rhythm irregularly irregular GI non-tender and non-distended Palpation: soft Neuro oriented x3, CN's II-XII intact bilaterally and no sensory deficits noted Tanya Coma Scale: document GCS findings Spontaneous Obeys Commands Oriented 15 Sensorium / Orientation: alert Motor Exam: strength 5/5 throughout Psych mental status grossly normal MDM MDM MDM Narrative Medical decision making narrative: Differential diagnosis includes cardiac dysrhythmia, cardiac ischemia, congestive heart failure, pneumonia, viral infection, electrolyte abnormality, and anxiety. EKG will be obtained to assess for cardiac dysrhythmia and cardiac ischemia. Chest x-ray will be obtained to assess for pneumonia and congestive heart failure. CBC will be obtained to assess for leukocytosis and anemia. Basic metabolic profile will be obtained to assess for electrolyte abnormality and renal function. High-sensitivity troponin will be obtained to assess for cardiac ischemia. 2-hour repeat high-sensitivity troponin will be obtained to assess for ongoing cardiac ischemia. PT with INR will be obtained to assess for coagulopathy. COVID-19, influenza, and RSV PCR will be obtained to assess for viral infection. BNP will be obtained to assess for congestive heart failure. Lab Data Attestation: I reviewed the patient's lab results. Lab results narrative: CBC was reviewed and was essentially within normal limits. Basic metabolic profile was reviewed and was within normal limits. High-sensitivity troponin was reviewed and was normal at 18. PT with INR was reviewed. Pro time was 27.9 and INR is 2.6. COVID-19 PCR was reviewed and was negative. Influenza PCR was reviewed and was negative for influenza A and influenza B. RSV PCR was reviewed and was negative. BNP was reviewed and was elevated at 176.4. 2-hour repeat troponin was reviewed and was normal at 18. Labs: Laboratory Results - last 24 hr 09/15/23 09/15/23 12:50 15:15 WBC 7.4 RBC 4.26 L Hgb 13.7 Hct 41.9 MCV 98.4 H MCH 32.2 H MCHC 32.7 RDW Std Deviation 59.7 H RDW Coeff of Darnell 16.4 H Plt Count 186 MPV 10.0 Immature Gran % (Auto) 0.400 Neut % (Auto) 60.4 Lymph % (Auto) 23.2 [place] % (Auto) 10.6 H Eos % (Auto) 4.7 Baso % (Auto) 0.7 Absolute Neuts (auto) 4.5 Absolute Lymphs (auto) 1.71 Nucleated RBC % 0 PT 27.9 H INR 2.6 Sodium 133 L Potassium 4.4 Chloride 103 Carbon Dioxide 27.0 Anion Gap 3 L BUN 24 H Creatinine 1.16 Estim Creat Clear Calc 54.09 Est GFR (MDRD) Af Amer 78 Est GFR (MDRD) Non-Af 64 BUN/Creatinine Ratio 20.7 H Glucose 89 Calcium 9.1 Troponin I High Sens 18 18 B-Natriuretic Peptide 176.4 H Radiography Chest X-Ray - ED: 1 View, Read by ED Physician, Read by Radiologist, Chronic Changes and CHF Diagnostic Testing: Clinical Impression(s) from Imaging Studies Chest X-Ray 09/15/23 12:50 IMPRESSION: Stable chest with no interval emergence of a more acute finding. Findings may represent interstitial edema/congestive failure and follow-up chest imaging to resolution is recommended. Electronically Signed: Vel Nassar MD at 13:17 EST , Portable chest x-ray was obtained. There is 1 view. On my independent interpretation, there is evidence of congestive heart failure. There is no acute infiltrate noted. There is cardiomegaly noted. Bony thorax is normal. Radiologist also interpreted the x-rays and agrees. EKG Initial EKG: Attestation: I personally reviewed and interpreted this EKG as follows: Interpretation: Atrial Fibrillation (58) and Non-Specific ST Changes Comments: EKG was obtained. On my independent interpretation, it shows atrial fibrillation with a rate of 58. QRS interval was normal at 106 ms. QTc interval was 429 ms. Bertrand was normal. There are nonspecific ST-T wave changes. There is no acute change compared to previous EKG dated 09/12/2023. Prior EKG tracings: available for review Prior: Unchanged (09/12/2023) Treatment and Re-Evaluation :: Patient was given a dose of Lasix here. Patient's blood pressure did drop to 105/65 so the Lasix was held for now. Case was discussed with the hospitalist. She will admit the patient to her service. Patient understood and was agreeable with the plan. All questions were answered. Discharge Plan Dx/Rx/DC Orders Clinical Impression: Congestive heart failure, Hypoxia Disposition Disposition: Acute Care Hospital [facility] Discharge Date/Time: 09/15/23 19:55
[2023-09-15 15:10] LABS: Reflex Troponin-HS? (from REC) Y
[2023-09-15 15:52] LABS: Troponin-I HS 18 pg/mL (3.0-78.0)
[2023-09-15 16:27] LABS: BNP,B-Type NATRIURETIC PEPTIDE 176.4 pg/mL (0-100)
--- NOTE | 2023-09-15 18:36 | ED.RN ---
pt's BP 105/[address] aguayo rn to hold IV lasix.
--- NOTE | 2023-09-15 18:49 | PCM.HP.STD ---
HPI - General General Date of Admission: 09/15/23 Date of Service: 09/15/23 Chief Complaint: SOB HPI Narrative GAGANDEEP DUARTE, is a 78-year-old male history of A-fib, pacemaker, anxiety, pulmonary fibrosis, hypertension who presented to [facility] ED 09/15/2023 with shortness of breath. He has shortness of breath it has been getting worse over the past 4 days especially with exertion and will get some tightness in his chest as well. Has had a cough but no significant sputum production. No fevers or chills. In the ED patient 85% on room air, chest x-ray stable but also reported findings may represent interstitial edema or congestive heart failure. BNP 176.4. Troponins WNL at 18x2. Hospitalist contacted for admission for fluid overload. Patient evaluated at bedside and he reports he has a history of pulmonary fibrosis and has chronic problems with his breathing but over the past 4 days it has been worsening, slight cough with no sputum production. Has a little bit of discomfort in his chest if he takes a big deep breath, overall reports he is just feeling exhausted. Weighs himself daily and does not think he has had significant weight gain but just feels unwell overall. [facility] Medical History Anxiety and depression Bradycardia CHF (congestive heart failure) Chronic fatigue Congestive heart failure (CHF) Dyspepsia Dyspnea on exertion H/O measles H/O sick sinus syndrome History of pneumonia as a child Hyperlipidemia Hypertension Inguinal hernia (~2011) Interstitial lung disease Mitral and aortic heart valve diseases, unspecified Mitral valve regurgitation Panic attacks Permanent atrial fibrillation Posterior vitreous detachment of both eyes Presence of cardiac pacemaker Shoulder impingement syndrome Home Medications carvedilol 3.125 mg tablet 3.125 mg PO BID blood pressure 08/27/17 [History Last Taken 09/12/23] atorvastatin 20 mg tablet (Lipitor) 20 mg PO DAILY cholesterol 04/22/22 [History Last Taken 09/12/23] pantoprazole 20 mg tablet,delayed release (Protonix) 40 mg PO DAILY acid reflux 04/22/22 [History Last Taken 08/19/23 09:00 20 mg] potassium chloride 10 mEq tablet,extended release(part/cryst) 10 meq PO BIDCM #60 tabs 08/26/23 [Rx Last Taken 09/12/23] torsemide 20 mg tablet 20 mg PO BID #60 tabs 08/26/23 [Rx Last Taken 09/12/23] lisinopril 10 mg tablet 10 mg PO QHS blood pressure 09/12/23 [History Last Taken 09/11/23] paroxetine HCl 20 mg tablet 20 mg PO DAILY depression 09/12/23 [History Last Taken 09/11/23] warfarin 2.5 mg tablet 2.5 mg PO SUMOTUTHFR blood thinner 09/12/23 [History Last Taken 09/11/23] warfarin 3 mg tablet (Jantoven) 3 mg PO WESA 09/12/23 [History Last Taken 09/10/23] Allergy/AdvReac Type Severity Reaction Status Date / Time No Known Allergies Allergy Verified 08/21/23 10:09 Family History Mother CAD (coronary artery disease) CVA (cerebral vascular accident) Heart disease Hypertension Father CAD (coronary artery disease) CVA (cerebral vascular accident) Heart disease Hypertension Surgical History History of back surgery (~2006) History of inguinal hernia repair Mitral valve replaced (~1989) S/P cardiac pacemaker procedure Social History household members: spouse Smoking Status: Never smoker alcohol intake: never substance use type: does not use ROS ROS Narrative General: Denies fever/chills, just feels fatigued HENT: Denies headache, denies stuffy nose, denies sore throat EYES: Denies changes in vision Resp: Slight cough without sputum production, increased shortness of breath especially on exertion Cardiac: Denies chest pain GI: Denies abdominal pain, denies changes in bowel, denies nausea/vomiting : Denies changes in urination Extremity: Denies any significant increase in swelling MSK: Feels little bit weak overall Neuro: Denies any numbness/tingling Heme: Denies any bleeding or bruising Skin: Denies rashes Psychiatric: No complaints voiced Vital Signs Vital Signs Vital Signs: 09/15/23 12:28 09/15/23 13:03 09/15/23 13:03 Temperature 97.3 F L Temperature Source Temporal Pulse Rate 60 60 Respiratory Rate 16 22 H Respiratory Effort Respiratory Depth Respiratory Pattern Blood Pressure 122/69 H Blood Pressure Mean 86 Pulse Ox 92 98 85 Oxygen Delivery Method Room Air Nasal Cannula Room Air Oxygen Flow Rate (L/min) 2 09/15/23 13:08 09/15/23 14:56 09/15/23 15:19 Temperature Temperature Source Pulse Rate 59 L 65 Respiratory Rate 28 H 18 Respiratory Effort Short of Breath Respiratory Depth Normal Respiratory Pattern Normal Blood Pressure 121/70 H 118/64 Blood Pressure Mean 87 82 Pulse Ox 98 98 Oxygen Delivery Method Room Air Room Air Nasal Cannula Oxygen Flow Rate (L/min) 2 2 09/15/23 16:34 09/15/23 17:07 09/15/23 18:25 Temperature Temperature Source Pulse Rate 63 64 74 Respiratory Rate 22 H 24 H 26 H Respiratory Effort Respiratory Depth Respiratory Pattern Blood Pressure 132/70 H 114/56 L 105/65 Blood Pressure Mean 90 75 78 Pulse Ox 97 97 94 Oxygen Delivery Method Nasal Cannula Nasal Cannula Nasal Cannula Oxygen Flow Rate (L/min) 2 2 2 Weight Weight: 78.608 kg Body Mass Index (BMI) 24.1 Physical Exam Narrative General: Alert, oriented, no apparent distress HEENT: Atraumatic, normocephalic Eyes: Anicteric, normal conjunctiva, extraocular movements grossly intact Neck: Supple Respiratory: Increased respiratory effort, crackles bilaterally Cardiovascular: Irregularly irregular GI: Soft, nontender, nondistended Extremities: No edema Musculoskeletal: Moving all extremities Neuro: No overt focal neurological deficits Skin: No rashes appreciated Psych: Cooperative Results Lab / Micro Data 09/15/23 12:50 09/15/23 12:50 Labs: Laboratory Results - last 24 hr 09/15/23 12:50: WBC 7.4, RBC 4.26 L, Hgb 13.7, Hct 41.9, MCV 98.4 H, MCH 32.2 H, MCHC 32.7, RDW Std Deviation 59.7 H, RDW Coeff of Darnell 16.4 H, Plt Count 186, MPV 10.0, Immature Gran % (Auto) 0.400, Neut % (Auto) 60.4, Lymph % (Auto) 23.2, [place] % (Auto) 10.6 H, Eos % (Auto) 4.7, Baso % (Auto) 0.7, Absolute Neuts (auto) 4.5, Absolute Lymphs (auto) 1.71, Nucleated RBC % 0, PT 27.9 H, INR 2.6, Sodium 133 L, Potassium 4.4, Chloride 103, Carbon Dioxide 27.0, Anion Gap 3 L, BUN 24 H, Creatinine 1.16, Estim Creat Clear Calc 54.09, Est GFR (MDRD) Af Amer 78, Est GFR (MDRD) Non-Af 64, BUN/Creatinine Ratio 20.7 H, Glucose 89, Calcium 9.1, Troponin I High Sens 18, B-Natriuretic Peptide 176.4 H 09/15/23 15:15: Troponin I High Sens 18 Micro: Microbiology 09/15/23 13:24 Mucosa - Nose SARS-CoV-2, Influenza & RSV (PCR) - Final Imaging Radiology Impression Chest X-Ray 09/15/23 12:50 IMPRESSION: Stable chest with no interval emergence of a more acute finding. Findings may represent interstitial edema/congestive failure and follow-up chest imaging to resolution is recommended. Electronically Signed: Vel Nassar MD at 13:17 EST , Assessment & Plan Assessment/Plan (1) Hypoxia: (2) Congestive heart failure: (3) Chronic a-fib: PLAN: Plan #Hypoxia secondary to acute on chronic exacerbation of CHF -85% on room air on arrival, saturating well on 2L O2 -cxr stable but also reported findings may represent interstitial edema or congestive heart failure, given hx and BNP suspect aechf -BNP slightly up at 176.4 -Had recent echo 08/22/2023 left ventricular systolic function lower limits of normal, PASP 40 mmHg -Give echo <1 month ago will not repeat -IV lasix, reportedly on torsemide 20mg daily at home -BP low in ED so he was not given the 40 of IV Lasix, will give 20 IV x 1 now and 40 IV daily and titrate to effect while monitoring blood pressure -Daily weights, I's and O's -COVID/flu/RSV negative -Will obtain respiratory panel to verify no additional contributing factor given slight cough though lower suspicion # Idiopathic pulmonary fibrosis -Incentive spirometry -Supportive care -Patient to follow with Dr. Estrada in the office next week to establish care, previously followed with [facility] # A-fib/PPM/bioprosthetic mitral valve -On Coumadin chronically, continue Coumadin -Daily PT/INR # Hypertension -Patient with BP on the low side, will continue carvedilol with holding parameters and hold other medications to allow for diuresis # Anxiety -Continue home paxil #GERD -Continue PPI #DVT ppx: on coumadin chronically Tami Palomo MD Time spent in the patient's overall evaluation,decision-making process, review of diagnostic data, adjustment of management, discussion with other providers, nursing nursing and ancillary staff involved in patient's care documentation, 56 Minutes Charges/Coding Visit Charges Inpatient E&M: 61154 Init Hosp L2
--- OUTSIDE RECORDS SUMMARY | 2023-09-15 19:28 | XMS RPT_ITS | CCD ---
Author Name Unknown Address [address] [place] [address] Organization [facility] Care Team Providers Care Brick Layer Name Role Phone Dossi DC, Laura B Unavailable Mariela Lovelace Unavailable Unavailable Dossi DC, Laura B Unavailable Mariela Lovelace Unavailable Unavailable SANDY, KIANA Joya Attending Unavailable SANDY, KIANA Joya Admitting Unavailable SANDY, KIANA Joya Primary Care Unavailable SANDY, KIANA Joya Primary Care Unavailable SANDY, KIANA Joya Attending Unavailable SANDY, KIANA Joya Admitting Unavailable SANDY, KIANA Joya Attending Unavailable SANDY, KIANA Joya Admitting Unavailable SANDY, KIANA Joya Primary Care Unavailable SOLISARSLAN Mosquera Admitting Unavailable SOLIS, ARSLAN C Primary Care Unavailable ARSLAN SOLIS C Attending Unavailable SANDY, KIANA Joya Attending Unavailable SANDY, KIANA Joya Admitting Unavailable SANDY, KIANA Joya Primary Care Unavailable Macey Lee MD Primary Care Provider No, Referral Unavailable Unavailable 13, Pharmacist Unavailable Makayla SALMON, Joel Rice Unavailable Unavailpadma Contreras MD, Jose Ramon Miller Unavailable Mercy SINGH, Linus Wojciech Unavailable Macey Lee MD Primary Care Provider 13, Pharmacist Unavailable Makayla SALMON, Joel Rice Unavailable Unavailpadma Contreras MD, Jose Ramon Mcadamsoudemetri Unavailable Mercy SINGH, Linus Wojciech Unavailable Macey Lee MD Primary Care Provider No, Referral Unavailable Unavailable 13, Pharmacist Unavailable Joel RN, Makayla M Unavailable Unavailabl e Diane SINGH, Jose Ramon Miller Unavailable Mercy SINGH, Linus Jeffrey Unavailable Adamasarah SINGH, Sameep Unavailable Gulshan SINGH, Natalia M Unavailable No, Referral Unavailable Unavailable Tamra Mock RN Unavailable Jesus SINGH, Macey Primary Care Provider Diane SINGH, Jose Ramon Miller Unavailable Mercy SINGH, Linus Jeffrey Unavailable Adama SINGH, Sameep Unavailable Gulshan SINGH, Natalia M Unavailable Tamra Mock RN Unavailable GANTA, MACEY Primary Care Unavailable Diane SINGH, Jose Ramon Miller Unavailable ADAMA, SAMEEP Referring Unavailable GANTA, MACEY Primary Care Unavailable OLDER, NEETA Referring Unavailable GANTA, MACEY Primary Care Unavailable RUTH JANSEN Attending Unavailable DUNG GONZALEZ Referring Unavailable GANTA, MACEY Primary Care Unavailable OLDER, NEETA Referring Unavailable GANTA, MACEY Primary Care Unavailable JOHNSON, ROBERT Referring Unavailable GANTA, MACEY Primary Care Unavailable JOHNSON, ROBERT Referring Unavailable GANTA, MACEY Primary Care Unavailable DENBOW, MERCED Attending Unavailable GANTA, MACEY Primary Care Unavailable DENBOW, MERCED Referring Unavailable GANTA, MACEY Primary Care Unavailable LE CLARK Attending Unavailable GANTA, MACEY Primary Care Unavailable GANTA, MACEY Primary Care Unavailable OLDER, NEETA Attending Unavailable GANTA, MACEY Primary Care Unavailable ADAMA, SAMEEP Referring Unavailable GANTA, MACEY Primary Care Unavailable DENBOW, MERCED Attending Unavailable GANTA, MACEY Primary Care Unavailable OLDER, NEETA Referring Unavailable GANTA, MACEY Primary Care Unavailable SLEIKJOSE RAMON Referring Unavailable OLDER, NEETA Attending Unavailable GANTA, MACEY Primary Care Unavailable PARAMBILGEOVANNY Referring Unavailable GANTA, MACEY Primary Care Unavailable OLDER, NEETA Attending Unavailable GANTA, MACEY Primary Care Unavailable OLDER, NEETA Referring Unavailable GANTA, MACEY Primary Care Unavailable SLEIK, KHALED MELOUD Referring Unavailable GANTA, MACEY Primary Care Unavailable GANTA, MACEY Primary Care Unavailable OLDER, NEETA Attending Unavailable GANTA, MACEY Primary Care Unavailable OLDER, NEETA Referring Unavailable GANTA, MACEY Primary Care Unavailable DUNG GONZALEZ Referring Unavailable GANTA, MACEY Primary Care Unavailable DUNG GONZALEZ Referring Unavailable GANTA, MACEY Primary Care Unavailable OLDER, NEETA Attending Unavailable GANTA, MACEY Primary Care Unavailable OLDER, NEETA Referring Unavailable GANTA, MACEY Primary Care Unavailable ADAMA, SAMEEP Referring Unavailable ADAMA, ORESTESEP Attending Unavailable GANTA, MACEY Primary Care Unavailable DENBOW, MERCED Referring Unavailable GANTA, MACEY Primary Care Unavailable JORGE L PROCTOR Referring Unavailable GANTA, MACEY Primary Care Unavailable PARAMBIL, GEOVANNY Referring Unavailable PARAMBIL, GEOVANNY Attending Unavailable GANTA, MACEY Primary Care Unavailable ADAMA, SAMEEP Referring Unavailable GANTA, MACEY Primary Care Unavailable SLEIK, KHALED MELOUD Referring Unavailable SLEIK, KHALED MELOUD Attending Unavailable GANTA, MACEY Primary Care Unavailable DENBOW, MERCED Referring Unavailable GANTA, MACEY Primary Care Unavailable GANTA, MACEY Primary Care Unavailable ROBERT JOHNSON Attending Unavailable PROCTORJORGE L BRADY Referring Unavailable GANTA, MACEY Primary Care Unavailable DUNG GONZALEZ Attending Unavailable OLDER, NEETA Referring Unavailable GANTA, MACEY Primary Care Unavailable PARAMBILGEOVANNY Referring Unavailable GANTA, MACEY Primary Care Unavailable GANTA, MACEY Primary Care Unavailable GANTA, MACEY Attending Unavailable OLDER, NEETA Attending Unavailable GANTA, MACEY Primary Care Unavailable Medications Current Medications Medication Drug Class(es) [...] 6hr as needed pain ACETAMINOPHEN-CODE INE TABS [id number] Sandrine Kc MD Problems Active Problems Problem Classification Problem Date Documented Da te Episodic/Chronic Allergic reactions (20 sources) Atopic dermatitis; Translations: [Allergic contact dermatitis, unspecified cause] Onset: 01-23-2012 Resolved: 04-03-2012 01-23-2012 Chronic Anxiety disorders (20 sources) Generalized anxiety disorder; Translations: [Panic attack] Onset: 12-26-2014 08-28-2009 Chronic Cardiac dysrhythmias (20 sources) Atrial fibrillation; Translations: [Ventricular premature beats] Onset: 11-06-2016 08-28-2009 Chronic Cardiac dysrhythmias (20 sources) Bradycardia; Translations: [Bradycardia, unspecified] 06-14-2020 Episodic Coagulation and hemorrhagic disorders (20 sources) Platelet count below reference range; Translations: [Thrombocytopenia, unspecified] Onset: 04-05-2019 04-05-2019 Chronic Conditions associated with dizziness or vertigo (1 source) Dizziness; Translations: [Dizziness and giddiness] Episodic Conduction disorders (20 sources) Cardiac pacemaker in situ; Translations: [Presence of cardiac pacemaker] 06-14-2020 Chronic Congestive heart failure; nonhypertensive (20 [...] biological agents ruled out] Onset: 07-17-2020 Episodic Malaise and fatigue (6 sources) Fatigue; Translations: [Other fatigue] Onset: 09-03-2023 Episodic Mood disorders (20 sources) Chronic depression; Translations: [Major depressive disorder, single episode, unspecified] Onset: 08-23-2011 08-23-2011 Chronic Nonspecific chest pain (20 sources) Chest pain, unspecified; Translations: [Atypical chest pain] Onset: 06-02-2009 12-13-2010 Episodic Open wounds of head; neck; and trunk (1 source) Laceration of head without foreign body; Translations: [Laceration without foreign body of other part of head, subsequent encounter] Episodic Other aftercare (20 sources) Long-term current use of anticoagulant; Translations: [prison (current) use of anticoagulants] Onset: 08-11-1989 06-14-2020 [...] enzymes] Episodic Other liver diseases (2 sources) Abnormal levels of other serum enzymes; Translations: [Elevated alkaline phosphatase level] Onset: 02-05-2023 Episodic Other lower respiratory disease (20 sources) [...] Onset: 08-21-2022 Chronic Other lower respiratory disease (4 sources) Dyspnea; Translations: [Shortness of breath] Episodic [...] (1 source) Hypoxemia; Translations: [Hypoxemia] Episodic Other lower respiratory disease (1 source) Shortness of breath; Translations: [Shortness of breath] Onset: 09-03-2023 Episodic Other nutritional; endocrine; and metabolic disorders [...] Translations: [Other cardiomyopathies] Onset: 05-29-2020 05-29-2020 Chronic Pneumonia (except that caused by tuberculosis or sexually transmitted disease) (1 source) Infective pneumonia; Translations: [Pneumonia, unspecified organism] 09-12-2023 Episodic Residual codes; unclassified (1 source) Bilateral lower limb edema; Translations: [Localized edema] Episodic Residual codes; unclassified (1 source) Chill; Translations: [Chills (without fever)] Episodic Residual codes; unclassified (1 source) Generalized aches and pains; Translations: [Pain, unspecified] Episodic Residual codes; unclassified (2 sources) Other amnesia; Translations: [Memory loss] Onset: 08-14-2023 Episodic Unclassified (20 sources) Encounter for screening for malignant neoplasm of prostate; Translations: [Pulmonary function studies abnormal] Onset: 11-03-2009 11-03-2009 Episodic Unclassified (10 sources) General examination of patient ; Translations: [Encounter for other general examination] Onset: 08-23-2011 08-23-2011 Unclassified (10 sources) Replacement of mitral valve ; Translations: [Other specified postprocedural states] Onset: 08-11-1989 08-28-2009 Unclassified (11 sources) Screening - health check; Translations: [Encounter for general adult medical examination without abnormal findings] Onset: 05-07-2010 05-07-2010 Unclassified (11 sources) Warfarin therapy started; Translations: [prison (current) use of anticoagulants] Onset: 08-11-1989 08-28-2009 Unclassified (1 source) APPOINTMENT CANCELLED Unclassified (1 source) Permanent atrial fibrillation; Translations: [Permanent atrial fibrillation (HCC)] Onset: 06-14-2020 Past or Other Problems Problem Classification Problem Date Documented Da te Episodic/Chronic Abdominal hernia (20 sources) Right inguinal hernia ; Translations: [Unilateral inguinal hernia, without obstruction or gangrene, not specified as recurrent] Onset: 05-01-2012 05-01-2012 Episodic Abdominal pain (1 source) Lower abdominal pain, unspecified; Translations: [Lower abdominal pain] Onset: 06-12-2023 Episodic Deficiency and other anemia (1 source) Anemia, unspecified; Translations: [Anemia, unspecified type] Onset: 01-31-2023 Episodic Diabetes mellitus without complication (2 sources) Abnormal glucose level; Translations: [Other abnormal glucose] Onset: 01-13-2023 Episodic Genitourinary symptoms and ill-defined conditions (5 sources) Isaiah hematuria; Translations: [Gross hematuria] Onset: 04-28-2023 04-29-2023 Episodic Medical examination/evaluation (10 sources) Encounter for general adult medical examination without abnormal findings; Translations: [Encounter for general adult medical examination without abnormal findings] Onset: 05-07-2010 05-07-2010 Episodic Neoplasms of unspecified nature or uncertain behavior (20 sources) Neoplasm of uncertain behavior of skin; Translations: [Neoplasm of uncertain behavior of skin] Onset: 04-03-2012 04-03-2012 Episodic Other aftercare (10 sources) 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; Translations: [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] Onset: 08-11-1989 08-28-2009 Episodic Other bone disease and musculoskeletal deformities (20 sources) Pelvic somatic dysfunction; Translations: [Segmental and somatic dysfunction] Onset: 01-09-2017 01-13-2017 Episodic Other bone disease and musculoskeletal deformities (20 sources) Segmental and somatic dysfunction; Translations: [Segmental and somatic dysfunction of lumbar region] Onset: 01-09-2017 01-09-2017 Episodic Other disorders of stomach and duodenum (20 sources) Indigestion; Translations: [Functional dyspepsia] Onset: 04-03-2012 04-03-2012 Episodic Other ear and sense organ disorders (20 sources) Impacted cerumen; Translations: [Otitis externa] Onset: 08-16-2011 Resolved: 12-27-2011 08-16-2011 Episodic Other ear and sense organ disorders (20 sources) Otitis externa; Translations: [Unspecified otitis externa, unspecified ear] Onset: 08-19-2011 Resolved: 12-27-2011 12-27-2011 Episodic Other liver diseases (1 source) Unspecified [...] Time Vital Sign Value Performing Clinician Facility 09-12-2023 07:25-0500 Body temperature 97.9 [degF] Neeta Older [employer]ILMAKER.[employer] COMPLIANCE Work Phone: [facility] 09-12-2023 07:25-0500 Body weight 77.11 kg Neeta Older [employer]ILMAKER.[employer] OF [employer] COMPLIANCE Work Phone: [facility] 09-12-2023 07:25-0500 Diastolic blood pressure 60 mm[Hg] Neeta Older SAILMAKER.HEAD OF [employer] COMPLIANCE Work Phone: [facility] 09-12-2023 07:25-0500 Heart rate 52 /min Neeta Older SAILMAKER.HEAD OF [employer] COMPLIANCE Work Phone: [facility] 09-12-2023 07:25-0500 Respiratory rate 16 /min Neeta Older SAILMAKER.HEAD OF [employer] COMPLIANCE Work Phone: [facility] 09-12-2023 07:25-0500 SaO2% (BldA) [Mass fraction] 93 % Neeta Older SAILMAKER.HEAD OF [employer] AND COMPLIANCE Work Phone: [facility] 09-12-2023 07:25-0500 Systolic blood pressure 100 mm[Hg] Neeta Older [employer]ILMAKER.[employer] OF [employer] COMPLIANCE Work Phone: [facility] 05-20-2023 14:37-0400 Diastolic blood pressure 56 mm[Hg] Merced Mckeon PA-C Work Phone: [facility] 05-20-2023 14:37-0400 Systolic blood pressure 122 mm[Hg] Merced Denbow PA-C Work Phone: [facility] 05-20-2023 13:39-0400 Body height 182.9 cm Merced Denbow PA-C Work Phone: [facility] 05-20-2023 13:39-0400 Body temperature 98.2 [degF] Merced Denbow PA-C Work Phone: [facility] 05-20-2023 13:39-0400 Body weight 80.29 kg Merced Denbow PA-C Work Phone: [facility] 05-20-2023 13:39-0400 Heart rate 60 /min Merced Denbow PA-C Work Phone: [facility] 05-20-2023 13:39-0400 Respiratory rate 12 /min Merced Denbow PA-C Work Phone: [facility] 05-20-2023 13:39-0400 SaO2% (BldA) [Mass fraction] 93 % Merced Denbow PA-C Work Phone: [facility] 04-29-2023 11:48-0400 Body height 182.9 cm Robert Johnson PA-C Work Phone: [facility] 04-29-2023 11:48-0400 Body temperature 97.81 [degF] Robert Johnson PA-C Work Phone: [facility] 04-29-2023 11:48-0400 Body weight 80.38 kg Robert Johnson PA-C Work Phone: [facility] 04-29-2023 11:48-0400 Diastolic blood pressure 78 mm[Hg] Robert Johnson PA-C Work Phone: [facility] 04-29-2023 11:48-0400 Heart rate 72 /min Robert Johnson PA-C Work Phone: [facility] 04-29-2023 11:48-0400 Respiratory rate 14 /min Robert Johnson PA-C Work Phone: [facility] 04-29-2023 11:48-0400 SaO2% (BldA) [Mass fraction] 94 % Robert Johnson PA-C Work Phone: [facility] 04-29-2023 11:48-0400 Systolic blood pressure 122 mm[Hg] Robert Johnson PA-C Work Phone: [facility] 03-12-2023 09:42-0400 Body height 177.8 cm Merced Denbow PA-C Work Phone: [facility] 03-12-2023 09:42-0400 Body temperature 98.2 [degF] Merced Denbow PA-C Work Phone: [facility] 03-12-2023 09:42-0400 Body weight 80.74 kg Merced Denbow PA-C Work Phone: [facility] 03-12-2023 09:42-0400 Diastolic blood pressure 58 mm[Hg] Merced Denbow PA-C Work Phone: [facility] 03-12-2023 09:42-0400 Heart rate 48 /min Merced Denbow PA-C Work Phone: [facility] 03-12-2023 09:42-0400 Respiratory rate 12 /min Merced Denbow PA-C Work Phone: [facility] 03-12-2023 09:42-0400 SaO2% (BldA) [Mass fraction] 98 % Merced Denbow PA-C Work Phone: [facility] 03-12-2023 09:42-0400 Systolic blood pressure 110 mm[Hg] Merced Denbow PA-C Work Phone: [facility] 03-06-2023 13:14-0400 Body height 179.6 cm Pulm Wstr Work Phone: [facility] 03-06-2023 13:14-0400 Body weight 78.93 kg Pulm Wstr Work Phone: [facility] 03-06-2023 13:14-0400 Heart rate 56 /min Pulm Wstr Work Phone: [facility] 03-06-2023 13:14-0400 Respiratory rate 14 /min Pulm Wstr Work Phone: [facility] 03-06-2023 13:14-0400 SaO2% (BldA) [Mass fraction] 96 % Pulm Wstr Work Phone: [facility] 01-13-2023 10:14-0400 Body temperature 97 [degF] Neeta Older SAILMAKER.[employer] OF [employer] COMPLIANCE Work Phone: [facility] 01-13-2023 10:140400 Body weight 82.56 kg Neeta Older SAILMAKER.[employer] OF [employer] COMPLIANCE Work Phone: [facility] 01-13-2023 10:14-0400 Diastolic blood pressure 68 mm[Hg] Neeta Older SAILMAKER.HEAD OF [employer]ICS AND COMPLIANCE Work Phone: [facility] 01-13-2023 10:14-0400 Heart rate 55 /min Neeta Older SAILMAKER.[employer] OF [employer] COMPLIANCE Work Phone: [facility] 01-13-2023 10:14-0400 Respiratory rate 16 /min Neeta Older SAILMAKER.HEAD OF [employer]ICS AND COMPLIANCE Work Phone: [facility] 01-13-2023 10:14-0400 SaO2% (BldA) [Mass fraction] 98 % Neeta Older SAILMAKER.HEAD OF [employer]ICS AND COMPLIANCE Work Phone: [facility] 01-13-2023 10:14-0400 Systolic blood pressure 112 mm[Hg] Neeta Older SAILMAKER.HEAD OF [employer]ICS AND COMPLIANCE Work Phone: [facility] 11-22-2022 15:26-0400 Body height 177.8 cm Macey Lee MD Work Phone: [facility] 11-22-2022 15:26-0400 Body temperature 99 [degF] Macey Lee MD Work Phone: [facility] 11-22-2022 15:26-0400 Body weight 81.65 kg Macey Lee MD Work Phone: [facility] 11-22-2022 15:26-0400 Diastolic blood pressure 56 mm[Hg] Macey Lee MD Work Phone: [facility] 11-22-2022 15:26-0400 Heart rate 58 /min Macey Lee MD Work Phone: [facility] 11-22-2022 15:26-0400 Respiratory rate 12 /min Macey Lee MD Work Phone: [facility] 11-22-2022 15:26-0400 SaO2% (BldA) [Mass fraction] 100 % Macey Lee MD Work Phone: [facility] 11-22-2022 15:26-0400 Systolic blood pressure 122 mm[Hg] Macey Lee MD Work Phone: [facility] 10-21-2022 09:48-0400 Body height 179.9 cm Tereso Garcia LENS POLISHER Work Phone: [facility] 10-21-2022 09:48-0400 Body temperature 97.11 [degF] Tereso Garcia LENS POLISHER Work Phone: [facility] 10-21-2022 09:48-0400 Body weight 80.4 kg Tereso Radha LENS POLISHER Work Phone: [facility] 10-21-2022 09:48-0400 Diastolic blood pressure 62 mm[Hg] Tereso Garcia LENS POLISHER Work Phone: [facility] 10-21-2022 09:48-0400 Heart rate 52 /min Tereso Garcia LENS POLISHER Work Phone: [facility] 10-21-2022 09:48-0400 Respiratory rate 16 /min Tereso Garcia LENS POLISHER Work Phone: [facility] 10-21-2022 09:48-0400 SaO2% (BldA) [Mass fraction] 97 % Tereso Garcia LENS POLISHER Work Phone: [facility] 10-21-2022 09:48-0400 Systolic blood pressure 102 mm[Hg] Tereso Garcia LENS POLISHER Work Phone: [facility] 10-14-2022 11:30-0500 Body weight 79.83 kg Neeta Older SAILMAKER.[employer] COMPLIANCE Work Phone: [facility] 10-14-2022 11:30-0500 Diastolic blood pressure 66 mm[Hg] Neeta Older SAILMAKER.[employer] OF [employer] COMPLIANCE Work Phone: [facility] 10-14-2022 11:30-0500 Heart rate 56 /min Neeta Older SAILMAKER.[employer] OF [employer] AND COMPLIANCE Work Phone: [facility] 10-14-2022 11:30-0500 Respiratory rate 16 /min Neeta Older SAILMAKER.HEAD OF [employer]ICS AND COMPLIANCE Work Phone: [facility] 10-14-2022 11:30-0500 Systolic blood pressure 106 mm[Hg] Neeta Older SAILMAKER.[employer] OF [employer] AND COMPLIANCE Work Phone: [facility] 08-26-2022 13:41-0500 Body height 182.9 cm Nancy Galan MD Work Phone: [facility] 08-26-2022 13:41-0500 Body temperature 97.39 [degF] Nancy Galan MD Work Phone: [facility] 08-26-2022 13:41-0500 Body weight 78.93 kg Nancy Galan MD Work Phone: [facility] 08-26-2022 13:41-0500 Diastolic blood pressure 55 mm[Hg] Nancy Galan MD Work Phone: [facility] 08-26-2022 13:41-0500 Heart rate 45 /min Nancy Galan MD Work Phone: [facility] 08-26-2022 13:41-0500 Respiratory rate 18 /min Nancy Galan MD Work Phone: [facility] 08-26-2022 13:41-0500 SaO2% (BldA) [Mass fraction] 97 % Nancy Galan MD Work Phone: [facility] 08-26-2022 13:41-0500 Systolic blood pressure 108 mm[Hg] Nancy Galan MD Work Phone: [facility] 08-22-2022 11:47-0500 Body weight 78.93 kg Macey Lee MD Work Phone: [facility] 08-22-2022 11:47-0500 Diastolic blood pressure 58 mm[Hg] Macey Lee MD Work Phone: [facility] 08-22-2022 11:47-0500 Heart rate 50 /min Macey Lee MD Work Phone: [facility] 08-22-2022 11:47-0500 Respiratory rate 16 /min Macey Lee MD Work Phone: [facility] 08-22-2022 11:47-0500 SaO2% (BldA) [Mass fraction] 97 % Macey Lee MD Work Phone: [facility] 08-22-2022 11:47-0500 Systolic blood pressure 110 mm[Hg] Macey Lee MD Work Phone: [facility] 08-21-2022 13:45-0500 Body height 182.9 cm Linus Madrid MD Work Phone: [facility] 08-21-2022 13:45-0500 Body weight 79.38 kg Linus Madrid MD Work Phone: [facility] 08-21-2022 13:45-0500 Diastolic blood pressure 66 mm[Hg] Linus Madrid MD Work Phone: [facility] 08-21-2022 13:45-0500 Heart rate 58 /min Linus Madrid MD Work Phone: [facility] 08-21-2022 13:45-0500 SaO2% (BldA) [Mass fraction] 94 % Linus Madrid MD Work Phone: [facility] 08-21-2022 13:45-0500 Systolic blood pressure 115 mm[Hg] Linus Madrid MD Work Phone: [facility] 05-27-2022 11:09-0400 Body height 182.9 cm Neeta Older SAILMAKER.[employer] COMPLIANCE Work Phone: [facility] 05-27-2022 11:09-0400 Body temperature 96.8 [degF] Neeta Older SAILMAKER.[employer] COMPLIANCE Work Phone: [facility] 05-27-2022 11:09-0400 Body weight 80.02 kg Neeta Older SAILMAKER.[employer] COMPLIANCE Work Phone: [facility] 05-27-2022 11:09-0400 Diastolic blood pressure 56 mm[Hg] Neeta Older SAILMAKER.[employer] OF [employer] COMPLIANCE Work Phone: [facility] 05-27-2022 11:09-0400 Heart rate 53 /min Neeta Older SAILMAKER.[employer] OF [employer] COMPLIANCE Work Phone: [facility] 05-27-2022 11:09-0400 SaO2% (BldA) [Mass fraction] 95 % Neeta Older SAILMAKER.[employer] OF [employer] AND COMPLIANCE Work Phone: [facility] 05-27-2022 11:09-0400 Systolic blood pressure 110 mm[Hg] Neeta Older SAILMAKER.[employer] OF [employer] COMPLIANCE Work Phone: [facility] 05-14-2022 15:26-0400 Body temperature 97.39 [degF] Natalia Gaffney MD Work Phone: [facility] 05-14-2022 15:26-0400 Body weight 81.1 kg Natalia Gaffney MD Work Phone: [facility] 05-14-2022 15:26-0400 Diastolic blood pressure 68 mm[Hg] Natalia Gaffney MD Work Phone: [facility] 05-14-2022 15:26-0400 Heart rate 52 /min Natalia Gaffney MD Work Phone: [facility] 05-14-2022 15:26-0400 Systolic blood pressure 135 mm[Hg] Natalia Gaffney MD Work Phone: [facility] 05-02-2022 09:50-0400 Body temperature 97.39 [degF] Macey Lee MD Work Phone: [facility] 05-02-2022 09:50-0400 Body weight 80.74 kg Macey Lee MD Work Phone: [facility] 05-02-2022 09:50-0400 Diastolic blood pressure 70 mm[Hg] Macey Lee MD Work Phone: [facility] 05-02-2022 09:50-0400 Heart rate 58 /min Macey Lee MD Work Phone: [facility] 05-02-2022 09:50-0400 Respiratory rate 16 /min Macey Lee MD Work Phone: [facility] 05-02-2022 09:50-0400 SaO2% (BldA) [Mass fraction] 96 % Macey Lee MD Work Phone: [facility] 05-02-2022 09:50-0400 Systolic blood pressure 100 mm[Hg] Macey Lee MD Work Phone: [facility] 04-02-2022 14:15-0400 Body height 182.9 cm Abigail Garvin MD Work Phone: [facility] 04-02-2022 14:15-0400 Body temperature 96.8 [degF] Abigail Garvin MD Work Phone: [facility] 04-02-2022 14:15-0400 Body weight 80.83 kg Abigail Garvin MD Work Phone: [facility] 04-02-2022 14:15-0400 Diastolic blood pressure 55 mm[Hg] Abigail Garvin MD Work Phone: [facility] 04-02-2022 14:15-0400 Heart rate 49 /min Abigail Garvin MD Work Phone: [facility] 04-02-2022 14:15-0400 SaO2% (BldA) [Mass fraction] 97 % Abigail Garvin MD Work Phone: [facility] 04-02-2022 14:15-0400 Systolic blood pressure 113 mm[Hg] Abigail Garvin MD Work Phone: [facility] 04-01-2022 13:48-0400 Body weight 80 kg Jose Ramon Contreras MD Work Phone: [facility] 04-01-2022 13:48-0400 Diastolic blood pressure 76 mm[Hg] Jose Ramon Contreras MD Work Phone: [facility] 04-01-2022 13:48-0400 Heart rate 62 /min Jose Ramon Contreras MD Work Phone: [facility] 04-01-2022 13:48-0400 Respiratory rate 18 /min Jose Ramon Contreras MD Work Phone: [facility] 04-01-2022 13:48-0400 Systolic blood pressure 128 mm[Hg] Jose Ramon Contreras MD Work Phone: [facility] 03-22-2022 13:29-0400 Body weight 80.74 kg Neeta Older SAILMAKER.[employer]PLIANCE Work Phone: [facility] 03-22-2022 13:29-0400 Diastolic blood pressure 62 mm[Hg] Neeta Older SAILMAKER.HEAD OF ETHICS AND COMPLIANCE Work Phone: [facility] 03-22-2022 13:29-0400 Heart rate 56 /min Neeta Older SAILMAKER.HEAD OF ETHICS AND COMPLIANCE Work Phone: [facility] 03-22-2022 13:29-0400 Respiratory rate 16 /min Neeta Older SAILMAKER.HEAD OF ETHICS AND COMPLIANCE Work Phone: [facility] 03-22-2022 13:29-0400 Systolic blood pressure 122 mm[Hg] Neeta Older SAILMAKER.HEAD OF ETHICS AND COMPLIANCE Work Phone: [facility] 03-21-2022 13:56-0400 Body temperature 97.3 [degF] Nancy Galan MD Work Phone: [facility] 03-21-2022 13:56-0400 Body weight 80.6 kg Pulm 10 Other Phone: [facility] 03-21-2022 13:56-0400 Diastolic blood pressure 60 mm[Hg] Nancy Galan MD Work Phone: [facility] 03-21-2022 13:56-0400 Heart rate 53 /min Nancy Galan MD Work Phone: [facility] 03-21-2022 13:56-0400 Respiratory rate 12 /min Nancy Galan MD Work Phone: [facility] 03-21-2022 13:56-0400 SaO2% (BldA) [Mass fraction] 99 % Nancy Galan MD Work Phone: [facility] 03-21-2022 13:56-0400 Systolic blood pressure 109 mm[Hg] Nancy Galan MD Work Phone: [facility] 03-21-2022 12:00-0400 Body height 179.8 cm Pulm 10 Other Phone: [facility] 03-06-2022 12:38-0400 Body weight 80.29 kg Pham Older SAILMAKER.HEAD OF ETHICS AND COMPLIANCE Work Phone: [facility] 03-06-2022 12:38-0400 Diastolic blood pressure 68 mm[Hg] Pham Older SAILMAKER.HEAD OF ETHICS AND COMPLIANCE Work Phone: [facility] 03-06-2022 12:38-0400 Heart rate 68 /min Pham Older SAILMAKER.HEAD OF ETHICS AND COMPLIANCE Work Phone: [facility] 03-06-2022 12:38-0400 Respiratory rate 12 /min Pham Older SAILMAKER.HEAD OF ETHICS AND COMPLIANCE Work Phone: [facility] 03-06-2022 12:38-0400 Systolic blood pressure 112 mm[Hg] Pham Older SAILMAKER.HEAD OF ETHICS AND COMPLIANCE Work Phone: [facility] 03-05-2022 15:46-0400 Body height 182.9 cm Natalia Gaffney MD Work Phone: [facility] 03-05-2022 15:46-0400 Body temperature 96.91 [degF] Natalia Gaffney MD Work Phone: [facility] 03-05-2022 15:46-0400 Body weight 80.74 kg Natalia Gaffney MD Work Phone: [facility] 03-05-2022 15:46-0400 Diastolic blood pressure 75 mm[Hg] Natalia Gaffney MD Work Phone: [facility] 03-05-2022 15:46-0400 Heart rate 51 /min Natalia Gaffney MD Work Phone: [facility] 03-05-2022 15:46-0400 Systolic blood pressure 123 mm[Hg] Natalia Gaffney MD Work Phone: [facility] 01-31-2022 14:25-0400 Diastolic blood pressure 76 mm[Hg] Le Clark SAILMAKER.HOSPICE NURSE PRACTITIONER Work Phone: [facility] 01-31-2022 14:25-0400 Systolic blood pressure 130 mm[Hg] Le Clark SAILMAKER.HOSPICE NURSE PRACTITIONER Work Phone: [facility] 01-31-2022 14:22-0400 Body weight 83.01 kg Le Clark SAILMAKER.HOSPICE NURSE PRACTITIONER Work Phone: [facility] 01-31-2022 14:22-0400 Heart rate 60 /min Le Clark SAILMAKER.HOSPICE NURSE PRACTITIONER Work Phone: [facility] 01-31-2022 14:22-0400 Respiratory rate 16 /min Le Clark SAILMAKER.HOSPICE NURSE PRACTITIONER Work Phone: [facility] 01-31-2022 14:22-0400 SaO2% (BldA) [Mass fraction] 98 % Le Clark SAILMAKER.HOSPICE NURSE PRACTITIONER Work Phone: [facility] 12-17-2021 14:37-0400 Body height 182.9 cm Nancy Galan MD Work Phone: [facility] 12-17-2021 14:37-0400 Body temperature 98.01 [degF] Nancy Galan MD Work Phone: [facility] 12-17-2021 14:37-0400 Body weight 81.65 kg Nancy Galan MD Work Phone: [facility] 12-17-2021 14:37-0400 Diastolic blood pressure 66 mm[Hg] Nancy Galan MD Work Phone: [facility] 12-17-2021 14:37-0400 Heart rate 50 /min Nancy Galan MD Work Phone: [facility] 12-17-2021 14:37-0400 Respiratory rate 18 /min Nancy Galan MD Work Phone: [facility] 12-17-2021 14:37-0400 SaO2% (BldA) [Mass fraction] 98 % Nancy Galan MD Work Phone: [facility] 12-17-2021 14:37-0400 Systolic blood pressure 116 mm[Hg] Nancy Galan MD Work Phone: [facility] 01-09-2017 11:21-0400 BMI (Body Mass Index) 24.68 kg/m2 Mariela Zarcoimes [facility] Work Phone: 01-09-2017 11:21-0400 Body weight 82.56 kg [facility] Work Phone: 01-09-2017 11:21-0400 Pulse (Heart Rate) 79 /min [facility] Work Phone: 01-09-2017 11:21-0400 Respiratory Rate 17 /min [facility] Work Phone: 01-09-2017 11:21-0400 Weight 82.56 kg Laura Virk DC [facility] Work Phone: 05-01-2012 15:35-0400 BMI (Body Mass Index) 26.43 kg/m2 Mariela Zarcoimes [facility] Work Phone: 05-01-2012 15:35-0400 Body Temperature 97.4 [degF] Mairela Zarcoimes [facility] Work Phone: 05-01-2012 15:35-0400 BP Diastolic 76 mm[Hg] Mariela Zarcoimes [facility] Work Phone: 05-01-2012 15:35-0400 BP Systolic 123 mm[Hg] [facility] Work Phone: 05-01-2012 15:35-0400 BSA (Body Surface Area) 2.11 m2 [facility] Work Phone: 05-01-2012 15:35-0400 Pulse (Heart Rate) 53 /min [facility] Work Phone: 05-01-2012 15:35-0400 Pulse Oximetry 97 % [facility] Work Phone: 05-01-2012 15:35-0400 Respiratory Rate 16 /min Mariela Zarcoimes [facility] Work Phone: 05-01-2012 15:35-0400 Weight 88.09 kg [facility] Work Phone: 08-14-2009 10:40-0500 Body weight 85.27 kg [facility] Work Phone: 08-14-2009 10:40-0500 Height 182.88 cm [facility] Work Phone: 08-14-2009 10:40-0500 Weight 85.27 kg [facility] Work Phone: Encounters Encounter Date Encounter Type Care Provider Facility Start: 09-12-2023 Telephone encounter Ashleigh Ware [facility] Procedures Date Procedure Procedure Detail Performing Clinician Start: 03-06-2023 End: 03-06-2023 Brncdilat rspse spmtry pre&post-brncdilat admn Nancy Galan MD Work Phone: Start: 02-04-2023 Prothrombin time [facility] Provider Start: 01-21-2023 Echocardiography NANCY GALAN Start: 12-12-2022 PACEMAKER REMOTE CHECK Linus barahona MD Work Phone: Start: 10-21-2022 Ct thorax w/o contrast material Geovanny Ray MD Work Phone: Start: 08-21-2022 PACEMAKER CLINIC CHECK Linus barahona MD Work Phone: Start: 08-21-2022 Ecg routine ecg w/least 12 lds w/i&r Linus Madrid MD Work Phone: Start: 08-08-2022 Prothrombin time [facility] Provider Start: 05-28-2022 Radiologic exam chest 2 views Neeta Older SAILMAKER.HEAD OF ETHICS AND COMPLIANCE Work Phone: Start: 05-14-2022 Radex spine lumbosacral 2/3 views Natalia Gaffney MD Work Phone: Start: 03-21-2022 Pulmonary stress testing Nancy Mosquera Work Phone: Start: 03-20-2022 PACEMAKER REMOTE [...] Start: 01-13-2017 End: 01-14-2017 Chiropractic manipulation Laura B Dossi DC Work Phone: Start: 01-13-2017 End: 01-13-2017 Chiropractic manipulation Laura B Dossi DC Work Phone: Start: 01-09-2017 End: 01-09-2017 Radex spine lumbosacral minimum 4 views Laura B Dossi DC Work Phone: Start: 01-09-2017 End: 01-09-2017 Documentation of current medications Mariela Lovelace Start: 01-09-2017 End: 01-09-2017 X-ray exam of lower spine Laura B Dossi DC Work Phone: Start: 01-23-2012 End: 01-23-2012 Follow up Appt 1 week Sandrine Kc MD Start: 01-23-2012 End: 01-23-2012 Follow up Appt 1 week Sandirne Kc MD Start: 12-27-2011 End: 12-27-2011 Follow [...] End: 08-19-2011 Follow Up Appt Other Sandrine cK MD Start: 08-19-2011 End: 08-19-2011 Ceftriaxone (Rocephin) [...] Sandrine Kc MD Start: 08-11-2005 End: 08-11-2005 Roseanna Lovelace Start: 08-11-1989 Replacement of mitral valve MITRAL VALVE REPLACEMENT, HX OF Laura Virk DC Start: 08-11-1989 Replacement of mitral valve MITRAL VALVE REPLACEMENT, HX OF Mariela Lovelace Plan of Treatment Date Care Activity Detail Author Start: 01-22-2027 Diabetes Screening Diabetes Screening [facility] Start: 03-12-2026 DIABETES SCREEN DIABETES SCREEN [facility] Start: 03-12-2026 Diabetes Screening Diabetes Screening [facility] Start: 01-31-2026 DIABETES SCREEN DIABETES SCREEN [facility] Start: 01-14-2026 DIABETES SCREEN DIABETES SCREEN [facility] Start: 03-07-2025 DIABETES SCREEN DIABETES SCREEN [facility] Start: 03-04-2025 DIABETES SCREEN DIABETES SCREEN [facility] Start: 01-19-2025 DIABETES SCREEN DIABETES SCREEN [facility] Start: 12-17-2024 DIABETES SCREEN DIABETES SCREEN [facility] Start: 09-12-2024 Annual PCP Team Chronic Disease Visit Annual PCP Team Chronic Disease Visit [facility] Start: 09-12-2024 BP Controlled (<130/80) BP Controlled (<130/80) [facility] Start: 07-09-2024 DIABETES SCREEN DIABETES SCREEN [facility] Start: 05-20-2024 Annual PCP Team Chronic Disease Visit Annual PCP Team Chronic Disease Visit [facility] Start: 05-20-2024 BP Controlled (<130/80) BP Controlled (<130/80) [facility] Start: 04-29-2024 BP Controlled (<130/80) BP Controlled (<130/80) [facility] Start: 03-12-2024 ANNUAL PCP TEAM CHRONIC DISEASE VISIT ANNUAL PCP TEAM CHRONIC DISEASE VISIT [facility] Start: 03-12-2024 BP CONTROLLED (<130/80) BP CONTROLLED (<130/80) [facility] Start: 02-01-2024 ANNUAL PCP TEAM CHRONIC DISEASE VISIT ANNUAL PCP TEAM CHRONIC DISEASE VISIT [facility] Start: 02-01-2024 BP CONTROLLED (<130/80) BP CONTROLLED (<130/80) [facility] Start: 01-14-2024 ANNUAL PCP TEAM CHRONIC DISEASE VISIT ANNUAL PCP TEAM CHRONIC DISEASE VISIT [facility] Start: 01-14-2024 BP CONTROLLED (<130/80) BP CONTROLLED (<130/80) [facility] Start: 11-23-2023 ANNUAL PCP TEAM CHRONIC DISEASE VISIT ANNUAL PCP TEAM CHRONIC DISEASE VISIT [facility] Start: 10-15-2023 ANNUAL PCP TEAM CHRONIC DISEASE VISIT ANNUAL PCP TEAM CHRONIC DISEASE VISIT [facility] Start: 08-22-2023 ANNUAL PCP TEAM CHRONIC DISEASE VISIT ANNUAL PCP TEAM CHRONIC DISEASE VISIT [facility] Start: 08-11-2023 Advance Directive Discussion Advance Directive Discussion [facility] Start: 05-27-2023 ANNUAL PCP TEAM CHRONIC DISEASE VISIT ANNUAL PCP TEAM CHRONIC DISEASE VISIT [facility] Start: 05-13-2023 Cystourethroscopy CYSTO.PANENDO Procedures Routine Hematuria, unspecified type Expected: 05/13/2023 (Approximate) [facility] Work Phone: Immunizations Immunization Date Immunization Notes Care Provider Stanley willis 05-12-2023 influenza, high dose seasonal, preservative-free Husam Chilel [facility] 05-12-2023 respiratory syncytia l virus (RSV) vaccine, bivalent (ABRYSVO) Husam Chilel [facility] 12-25-2022 zoster vaccine recombinant Flavia Whitmore [facility] 10-15-2022 zoster vaccine recombinant Maryan Berumen [facility] 07-18-2022 COVID-19 booster vaccine, age 12+ yr, bivalent (PFIZER-BIONTECH) [facility] 07-18-2022 influenza, high-dose , quadrivalent vaccine (FLUZONE HIGH DOSE QUADRIVALENT) [facility] 07-18-2022 influenza virus vaccine, unspecified formulation Neeta Bowman APRN.HEAD OF ETHICS AND COMPLIANCE Work Phone: [facility] 05-09-2021 COVID-19 vaccine, ag e 12+ yr (PFIZER-BIONTECH - PURPLE TOP) Jose Ramon Contreras MD Work Phone: [facility] 05-09-2021 influenza, high-dose , quadrivalent vaccine (FLUZONE HIGH DOSE QUADRIVALENT) Jose Ramon Contreras MD Work Phone: [facility] 10-04-2020 COVID-19 vaccine, ag e 12+ yr (PFIZER-BIONTECH - PURPLE TOP) Jose Ramon Contreras MD Work Phone: [facility] 09-08-2020 COVID-19 vaccine, ag e 12+ yr (PFIZER-BIONTECH - PURPLE TOP) Jose Ramon Contreras MD Work Phone: [facility] 07-05-2020 tetanus and diphther ia toxoids, adsorbed, preservative free, for adult use (5 Lf of tetanus toxoid and 2 Lf of diphtheria toxoid) Jose Ramon Contreras MD Work Phone: [facility] 05-19-2020 influenza, high-dose , quadrivalent vaccine (FLUZONE HIGH DOSE QUADRIVALENT) Jose Ramon Contreras MD Work Phone: [facility] 04-28-2019 influenza, high dose seasonal, preservative-free Jose Ramon Contreras MD Work Phone: [facility] Work Phone: 03-11-2019 influenza virus vaccine, unspecified formulation Jose Ramon Contreras MD Work Phone: [facility] Work Phone: 04-23-2018 influenza, high dose seasonal, preservative-free Jose Ramon Contreras MD Work Phone: [facility] Work Phone: 04-07-2017 influenza, high dose seasonal, preservative-free Jose Ramon Contreras MD Work Phone: [facility] Work Phone: 03-30-2016 influenza, high dose seasonal, preservative-free Jose Ramon Contreras MD Work Phone: [facility] 05-11-2015 influenza, high dose seasonal, preservative-free Jose Ramon Contreras MD Work Phone: [facility] Work Phone: 05-03-2015 pneumococcal conjuga te vaccine, 13 valent Jose Ramon Contreras MD Work Phone: [facility] Work Phone: 05-27-2014 influenza, seasonal, injectable Jose Ramon Contreras MD Work Phone: [facility] Work Phone: 05-17-2013 influenza virus vaccine, unspecified formulation Jose Ramon Contreras MD Work Phone: [facility] 05-17-2013 zoster vaccine, live Jose Ramon Contreras MD Work Phone: [facility] 07-27-2010 pneumococcal polysaccharide vaccine, 23 valent Laura Virk DC [facility] Work Phone: 07-27-2010 pneumococcal polysaccharide vaccine, 23 valent Mariela Lovelace [facility] Work Phone: 05-07-2010 influenza, seasonal, injectable Laura Moose ALY [facility] Work Phone: 05-07-2010 influenza, seasonal, injectable Mariela Lovelace [facility] Work Phone: Payers Date Payer Category Payer Unknown [id number] 2022 Unknown [id number] 2019 Unknown [employer] [place] [employer] [place] [employer] MED[employer] SUPPLEMENT [id number] 2019-Present [phone] [id number] [employer] [place] [address] Indemnity [id number] 2019 Unknown [id number] 2011 Medicare MEDICARE MEDICAR E A AND B [id number] 2011-Present [phone] [address] [address] [place] [address] Medicare [id number] 2011 Medicare [id number] 1943 Unknown [id number] 1943 Unknown [id number] 1 1943 Unknown [id number] 1943 Unknown [id number] 1 1943 Unknown [id number] 1 Medicare [id number] Unknown [id number] Social History Date Type Detail Facility Start: 11-22-2011 End: 05-20-2012 Tobacco smoking status NHIS Never smoked tobacco [facility] Start: 11-22-2011 End: 05-20-2012 Tobacco use and exposure Smokeless tobacco non-user [facility] Start: 10-29-2021 End: 09-05-2023 Alcohol intake Current non-drinker of alcohol (finding) [facility] Start: 06-19-2020 End: 08-15-2022 History SDOH Alcohol Frequency 1 [facility] Start: 07-01-2020 End: 08-15-2022 History SDOH Alcohol Std Drinks 98 [facility] Start: 07-01-2020 End: 08-15-2022 History SDOH Social Connections Phone 4 [facility] Start: 02-08-2020 End: 08-15-2022 History SDOH Social Connections Membership 2 [facility] Start: 02-08-2020 End: 08-15-2022 History SDOH Social Connections Living 3 [facility] Start: 02-08-2020 Education 18 [facility] Start: 1945 Sex Assigned At Male [facility] Start: 10-19-2021 End: 05-27-2022 Exposure to SARS-CoV-2 (event) Not sure [facility] Work Phone: Start: 11-30-2021 End: 03-22-2022 Exposure to SARS-CoV-2 (event) Unable to assess [facility] Start: 08-15-2022 History SDOH Alcohol Std Drinks 0 [facility] Start: 1945 [facility] Start: 08-15-2022 End: 01-02-2023 History of Social function [facility] Start: 08-15-2022 End: 01-02-2023 Social connection and isolation panel [facility] How often do you get together with friends or relatives? Patient refused [facility] Do you belong to any clubs or organizations such as caodaism groups, unions, fraternal or athletic groups, or school groups? No [facility] Are you now , , , , never or living with a partner? [facility] How often to you hav e a drink containing alcohol? Never [facility] How hard is it for y ou to pay for the very basics like food, housing, medical care, and heating Not very hard [facility] Do you feel stress - tense, restless, nervous, or anxious, or unable to sleep at night because your mind is troubled all the time - these days [OSQ] To some extent [facility] (I/We) worried wheth er (my/our) food would run out before (I/we) got money to buy more. Sometimes true [facility] Start: 02-08-2020 Gender identity Identifies as male gender (finding) [facility] Start: 02-08-2020 Sexual orientation Heterosexual (finding) [facility] Do you feel stress - tense, restless, nervous, or anxious, or unable to sleep at night because your mind is troubled all the time - these days [OSQ] Only a little [facility] (I/We) worried wheth er (my/our) food would run out before (I/we) got money to buy more. Never true [facility] In the past 12 month s, was there a time when you were not able to pay the mortgage or rent on time? Yes [facility] Start: 08-12-2023 Sexual orientation Choose not to disclose [facility] Medical Equipment Procedure Code Equipment Code Equipment Origin al Text Equipment Identifier Dates [id number] Implant - [id number] Start: 06-10-2012 Goals Date Patient Goal Desired Activity /State Personal health goal Clinical Notes 05-18-2020 to 09-12-2023 Telephone Encounter - Ashleigh Ware RP - 09/12/2023 2:45 PM Neeta Beasley APRN.HEAD OF ETHICS AND COMPLIANCE - 09/12/2023 7:36 AM ESTTelephone Encounter - Jumana Pierre MSW - 09/11/2023 3:48 PM EST Note Date & Type Note Facility 09-12-2023 Miscellaneous Notes [facility] Anticoagulation Episode Summary Anticoagulation Care Providers Provider Role Specialty Phone number Macey Lee MD Responsible Internal Medicine [phone] Gagandeep Marion Duarte is a 78 year old year old male patient being evaluated today for a Telemanagement visit. Patient is currently on the following anticoagulant(s) Warfarin. Labs PT INR (no units) Date Value 02/04/2023 3.4 (Kassie) 08/08/2022 2.5 08/09/2021 1.7 INR Home CoaguChek (no units) Date Value 09/12/2023 5.6 08/15/2023 2.3 07/16/2023 2.1 Hemoglobin (g/dL) Date Value 09/01/2023 13.6 07/09/2021 12.7 Hematocrit (%) Date Value 09/01/2023 42.0 07/09/2021 39.1 Platelet Count (k/uL) Date Value 09/01/2023 328 07/09/2021 142 Creatinine (mg/dL) Date Value 09/01/2023 1.24 08/14/2023 1.12 04/29/2023 1.13 07/09/2021 1.19 07/03/2020 1.09 04/28/2020 0.94 Bilirubin, Total (mg/dL) Date Value 08/14/2023 1.5 04/28/2020 1.2 ALT (U/L) Date Value 08/14/2023 17 04/28/2020 13 AST (U/L) Date Value 08/14/2023 36 04/28/2020 28 Estimated Creatinine Clearance: 51.8 mL/min (A) (based on SCr of 1.24 mg/dL (H)). ALLERGIES No Known Allergies Indication for Warfarin: Anticoagulant long-term use S/p mvr (mitral valve replacement) Anticoagulation Episode Summary Current INR goal: 2.5-3.5 Assessment: INR result of 5.6 is SUPRAtherapeutic due to: Medication change or drug interaction Pt denies bruising or bleeding, no recent falls Plan: Current Warfarin Dosing As of 09/12/2023 Full warfarin instructions: 09/12: Hold; 2/3: Hold; Otherwise 3 mg every Fri, Sat; 2.5 mg all other days Called and spoke to patient/caregiver stp and sent mychart message Advised patient to hold 2 doses then continue current regimen Next home INR check scheduled on 09/19/2023 Patient verbalizes understanding of the plan. Patient denies need for refills. Ashleigh Ware RPh Clinical Pharmacist, Pharmacy Anticoagulation Clinic Pharm[facility] Pager: [phone]. documented in this encounter [facility] 09-12-2023 Note [facility] 09-12-2023 History of Presen t illness Narrative CC: Patient presents with: Recheck: Follow up pneumonia HPI Gagandeep Marion Duarte is a 78 year old male who presents today for follow up on pneumonia. Within the last month patient has been admitted to [facility] for CHF, has been having to live and care for himself as had fractured hip, and diagnosed last week with pneumonia. Daughter, Deisy, on phone during visit. Patient taking Levaquin as ordered and has a few days left in regimen. Has been having meals delivered to home to make sure he has food readily available. Daughter flew in this past week to check on father and feels he is forgetful but is safe to be at home and drive. Patient did see neurology last week without concern and even had unremarkable CT of the brain. Patient reports he is still with shortness of breath on exertion and now at rest. Feels like there is always something squeezing in his heart and chest. Denies fever, chills, edema, cough, wheezing, edema, difficulty breathing while lying flat, dizziness or syncope REVIEW OF SYSTEMS General: no fevers and no chills Respiratory: no cough, no wheezing, no hemoptysis Cardiovascular: no palpitations and no swelling GI: No nausea, vomiting, or diarrhea Neurologic: No headache, numbness, syncope. PAST MEDICAL HISTORY Diagnosis Date Anxiety [...] LV systolic dysfunction ECHO TRANSESOPHAG CONGEN PROBE [facility] I&R 05/18/2020 see report; notable [...] ALLERGIES Patient has no known allergies. MEDICATIONS levoFLOXacin (LEVAQUIN) 500 mg tablet^Take 1 tablet by mouth once daily for 10 days.^Disp: 10 tablet^Rfl: 0 PARoxetine (PAXIL) 20 mg tablet^Take 1 tablet by mouth once daily.^Disp: 90 tablet^Rfl: 3 atorvastatin (LIPITOR) 20 mg tablet^Take 1 tablet by mouth once daily.^Disp: 90 tablet^Rfl: 2 carvedilol (COREG) 3.125 mg tablet^Take 1 tablet by mouth twice daily^Disp: 180 tablet^Rfl: 1 Fluocinolone Acetonide Oil (DERMOTIC OIL) 0.01 % drop^Use 1-2 Drops in both ears four times a day as needed.^Disp: 20 mL^Rfl: 1 warfarin (COUMADIN) 2.5 mg tablet^Take 1 tablet by mouth once daily. Take as directed by the [facility]^Disp: 30 tablet^Rfl: 5 iv contrast (will be [...] contrast administration guidelines link.^Disp: 1 Each^Rfl: [address] (PROTONIX) 40 mg tablet^Take 1 tablet by mouth once daily. Take on empty stomach, 1/2 hr before meal.^Disp: 60 tablet^Rfl: 0 potassium chloride (K-TAB) 10 mEq tablet^Take 1 tablet by mouth daily with breakfast.^Disp: 90 tablet^Rfl: 3 torsemide (DEMADEX) 20 mg tablet^Take 1 tablet by mouth once daily^Disp: 90 tablet^Rfl: 3 lisinopril (ZESTRIL) 10 mg tablet^Take 1 tablet by mouth once daily.^Disp: 90 tablet^Rfl: 3 warfarin (COUMADIN) 3 mg tablet^Take as directed by [facility].^Disp: 30 tablet^Rfl: 5 FAMILY HISTORY Problem Relation Age of Onset Diabetes Mother Diabetes Maternal Grandmother Diabetes Maternal Grandfather Social History Tobacco Use Smoking status: Never Smokeless tobacco: Never Vaping Use Vaping Use: Never used Substance Use Topics Alcohol use: No Drug use: No PHYSICAL EXAM BP 100/60 Pulse (!) 52 Temp 36.6 C (97.9 F) (Temporal) Resp 16 Wt 77.1 kg (170 lb) SpO2 93% BMI 23.06 kg/m General Appearance: alert, ill and tired appearing Skin: Skin color, texture, turgor normal for age; Eyes: conjunctiva pink and moist, no icterus, sclera white, non-injected Lungs: Lungs with faint expiratory wheezing to anterior RLL, diminished to bilateral posterior lobes. No rhonchi, rales. Heart: Apical irregular (history of A-fib), gallop, or rubs. No ectopy Abdomen: Abdomen soft, non-tender. Bowel sounds normal. No masses, organomegaly Health maintenance reviewed with patient: DTaP,Tdap,Td Vaccine(1 - Tdap) due on 07/06/2020 Advance Directive Discussion Never done Annual PCP Team Chronic Disease Visit due on 09/05/2024 BP Controlled (<130/80) due on 09/05/2024 Diabetes Screening due on 09/01/2026 Influenza Vaccine Completed RSV Vaccine Completed Shingrix Vaccine Completed Covid-19 Vaccine Completed Pneumococcal Vaccine: 65+ Completed Colorectal Cancer Screening Discontinued DATA REVIEWED: Most recent labs and imaging results. EKG Interpretation: RHYTHM: Atrial fibrillation with PVC AXIS: Normal axis ST SEGMENT: ST and T wave abnormality, consider lateral ischemia QT INTERVAL: Prolonged COMPARED WITH PRIOR: unchanged ASSESSMENT/PLAN: 1. Chest pain, unspecified type - ICD9: 786.50, ICD10: R07.9 (primary diagnosis) - with recent hospitalization of CHF and then bilateral upper lobe pneumonia on top of previous difficulty of getting a hold of patient with important test results, decision was made for patient to go to ER for urgent evaluation of blood work prior to go home. Both daughter and patient in agreement of this. - follow up Friday - ECG COMPLETE 2. Shortness of breath - ICD9: 786.05, ICD10: R06.02 As above - ECG COMPLETE - UA DIP, URINE (POC) - patient unable to urinate 3. Pneumonia due to infectious organism, unspecified laterality, unspecified part of lung - ICD9: 486, ICD10: J18.9 See #1 4. Other fatigue - ICD9: 780.79, ICD10: R53.83 See#1 - ECG COMPLETE - UA DIP, URINE (POC) 5. Chronic combined systolic and diastolic congestive heart failure (HCC) - ICD9: 428.42, 428.0, ICD10: I50.42 See #1 6. Permanent atrial fibrillation (HCC) - ICD9: 427.31, ICD10: I48.21 See #1 Prescription instructions reviewed with patient as applicable. Potential red flag symptoms discussed with the patient. Reviewed appropriate action plan to take if red flag symptoms occur. Patient agreeable to treatment plan. Neeta Bowman APRN.CNP documented in this encounter [facility] 09-11-2023 Miscellaneous Notes Sw spoke with daughter and she has set up home delivered meals for patient. Sw wrote note in Neeta's My Chart message regarding that yes, daughter Deisy wants to be called in the morning when patient is in for appt. Sw not sure if that note routed to SHAYLA Santacruz will send this message to SHAYLA Santacruz and April as well to make sure that they see SW reply to [facility] My Chart message 09/07/23 Patient reports that he has had [employer] deliver meals a few times but not the last 2 days. Patient reports his daughter Deisy had been over and was helping patient with locating services. Sw noted there are other home delivery meal plans such as [employer]. Patient reports that he would like Sw to reach out to his daughter Deisy Paige to see about explaining other meal options. Patient reports that his daughters number is [phone], Deisy's phone number. Patient notes that he is okay with this SW reaching out to Deisy and talking about other home delivered meal options. Sw will send note to SHAYLA Santacruz to update her on this information as well. Sw received message that patient was wanting to speak with health and social care teacher regarding food assistance resources. Sw called and left message that SW will try call to patient tomorrow 09/11 @10am to discuss food assistance needs. Sw has noted in previous message mention of [employer] was being set up for patient. documented in this encounter [facility] 09-10-2023 Note [facility] 09-05-2023 Note [facility] 09-05-2023 Note [facility] 09-03-2023 Note [facility] 09-03-2023 Note [facility] 09-01-2023 Note [facility] 08-16-2023 Note [facility] 08-13-2023 Note [facility] 08-07-2023 Note [facility] 07-16-2023 Miscellaneous Notes [facility] Anticoagulation Episode Summary Anticoagulation Care Providers Provider Role Specialty Phone number Macey Lee MD Responsible Internal Medicine [phone] Gagandeep Marion Duarte is a 77 year [...] of liver or green tea, Ensure, Boost, [place] Instant Breakfast, Mulit-Vitamins, and V-8. Plan: Current Warfarin Dosing As of 07/16/2023 Full warfarin instructions: 3 mg every Fri, Sat; 2.5 mg all other days Called and spoke to patient/caregiver Advised patient to increase total weekly regimen Next home INR check scheduled on 07/30/2023 Patient verbalizes understanding of the plan. Patient denies need for refills. Mrieya Madsen RPh Clinical Pharmacist, Pharmacy Anticoagulation Clinic Pharm[facility] Pager: [phone]. documented in this encounter [facility] 06-23-2023 Miscellaneous Notes Spoke to Anjelica/Abi, Patient picked up Coumadin 2.5mg today and has 4 refills remaining. Hilda Nicole LPN documented in this encounter [facility] 06-13-2023 Miscellaneous Notes Patient's request for medication is as follows: Requested Prescriptions Refused Prescriptions Disp Refills carvedilol (COREG) 3.125 mg tablet 180 tablet 1 Sig: Take 1 tablet by mouth two times a day. Refused By: ERIN WAY Reason for Refusal: Patient has requested refill too soon Refilled 06/10/2023 for 180 tabs and 1 refill to [facility]. Prescription(s) as above. Please process accordingly. Erin Way LPN documented in this encounter [facility] 06-12-2023 Note [facility] 06-10-2023 Miscellaneous Notes [facility] Anticoagulation Episode Summary Anticoagulation Care Providers Provider Role Specialty Phone number Macey Lee MD [facility] Internal Medicine [phone] Gagandeep Marion Duarte is a 77 year [...] Pharmacy Anticoagulation Clinic Pharmacy Antico[facility] Clinic Pager: [phone]. documented in this encounter [facility] 06-10-2023 Miscellaneous Notes Patient's request for medication is as follows: Requested Prescriptions Pending Prescriptions Disp Refills carvedilol (COREG) 3.125 mg tablet [Pharmacy Med Name: Carvedilol 3.125 MG Oral Tablet] 180 tablet 1 Sig: Take 1 tablet by mouth twice daily Last seen 08/21/2022. Follow up scheduled for 09/2023. Prescription(s) as above. Please process accordingly. Efren Magallanes LPN documented in this encounter [facility] 06-09-2023 Miscellaneous Notes Patient phones requesting refills as follows: Requested Prescriptions Pending Prescriptions Disp Refills carvedilol (COREG) 3.125 mg tablet [Pharmacy Med Name: Carvedilol 3.125 MG Oral Tablet] 180 tablet 0 Sig: Take 1 tablet by mouth twice daily Please review and advise. Aisha Lugo RN documented in this encounter [facility] 05-20-2023 Note [facility] 05-20-2023 Miscellaneous Notes Pt called and is [...] 02/27/2022 and favored to be benign. LATASHA Thomas, HARRY RIGGS documented in this encounter [facility] 05-20-2023 Instructions Merced Mckeon PA-C - 05/20/2023 2:[address] Contreras and see if you should still be on lisinopril documented in this encounter [facility] 05-20-2023 History of Presen t illness [...] LV systolic dysfunction ECHO TRANSESOPHAG CONGEN PROBE [facility] I&R 05/18/2020 see report; notable [...] Merced Mckeon PA-C documented in this encounter [facility] 05-20-2023 Nurse Note coumadin is managed by [facility] pharmacy dept Lisinopril d/c'd x 2 months documented in this encounter [facility] 05-19-2023 Miscellaneous Notes [facility] Anticoagulation Episode Summary Anticoagulation Care Providers Provider Role Specialty Phone number Macey Lee MD [facility] Internal Medicine [phone] Gagandeep Marion Duarte is a 77 year [...] instructed to call [facility] at [phone] with any questions or concerns. Husam Chilel RPh Clinical Pharmacist, Pharmacy Anticoagulation Clinic Pharmacy An[facility] Clinic Pager: [phone] documented in this encounter [facility] 05-16-2023 Note [facility] 04-30-2023 Miscellaneous Notes [facility] Anticoagulation Episode Summary Anticoagulation Care Providers Provider Role Specialty Phone number Macey Lee MD Responsible Internal Medicine [phone] Gagandeep Marion Haim is a 77 year [...] Pharmacy Anticoagulation Clinic Pharmacy Anticoagulation Clinic Pager: [phone]. documented in this encounter [facility] 04-29-2023 Note [facility] 04-29-2023 Note [facility] 04-29-2023 Instructions Robert Johnson PA-C - 04/29/2023 12:[address] Urogram to be scheduled at [facility] Cystoscopy to scheduled at [facility] - Urology ([place]) seen in 2017 they will contact patient # [phone] Urine Culture - - Pending Urine Cytology- - Pending Thank you, Sandor documented in this encounter [facility] 04-29-2023 History of Presen t illness Narrative Images from the original note were not included. Or [facility] NEW CONSULT PATIENT CLINIC [...] (COUMADIN) 3 mg tablet^Take as directed by [facility] Anticoagulation Clinic.^Disp: 30 tablet^Rfl: 5 iv contrast [...] replacement) 12/02/[address] [place] valve in 1989. On coumadin since. He [...] 4.00 k/uL Monocytes % 10.2 % Abs [place] 0.68 <0.87 k/uL Eosinophils % 2.7 % [...] R31.9 CT Urogram to be scheduled at [facility] Cystoscopy to scheduled at [facility] - Urology ([place]) seen in 2017 they will contact patient # [phone] Urine Culture - - Pending Urine Cytology- [...] for further testing. documented in this encounter [facility] 04-28-2023 Note [facility] 04-12-2023 Miscellaneous Notes Reason for Call: Bleeding [...] (using correct technique) Protocols used: Cuts and [id number] documented in this encounter [facility] 04-11-2023 Miscellaneous Notes Patient notified and will come in to get blood work. Flavia Vasquez LPN Please let patient know Neeta Bowman, HEAD OF ETHICS AND COMPLIANCE And I spoke about his labs, and we want to add on another one to check why that liver function is so high. If he can obtain that soon, that'd be great. Merced Mckeon PA-C documented in this encounter [facility] 04-03-2023 Miscellaneous Notes Patient due to test INR today. Will continue to monitor for results. Richard Ramirez RPh documented in this encounter [facility] 04-01-2023 Miscellaneous Notes Patient has been [...] advise. Makayla Robles documented in this encounter [facility] 03-12-2023 Note [facility] 03-12-2023 History of Presen t illness Narrative CC: Patient presents with: Follow Up: lung tests and ECHO test results needs explained per patient, needs coumadin refill HPI Gagandeep Marion Duarte is a 77 year old adult who presents today for 4-6 week f/u, as pt was unable to get in with cardiology. LV was with Neeta Bowman, HEAD OF ETHICS AND COMPLIANCE 01/31/23. Requesting that we discuss his echo [...] LV systolic dysfunction ECHO TRANSESOPHAG CONGEN PROBE [facility] I&R 05/18/2020 see report; notable for [...] Merced Mckeon PA-C documented in this encounter [facility] 03-07-2023 Note [facility] 03-07-2023 History of Presen t illness Narrative CDM Telephonic Outreach Provider Action/FYI Mr. Duarte thought he was caught up with his Home Monitoring Questionnaire Agrees to have Instructions on how to find the Home Monitoring Questionnaire sent via [employer] Contacted for: Engagement Contact made with patient: Yes Patient identified by name and date of . Discussed care with patient Outcomes: Patient forgot, reminder given Are you experiencing any new or worsening symptoms you need to talk about today? No Based on therapy site coordinator, the following disposition is advised: No symptoms or symptoms present, not severe. Routed to: No Action Needed DIONNA Education Provided this Outreach: Yes Tamra oMck RN March 07, 2023 3:00 PM documented in this encounter [facility] 03-06-2023 Note [facility] 03-06-2023 Note [facility] 03-06-2023 History of Presen t illness Narrative PULM FUNCTION SMARTBLOCK: Provider: Nancy Galan MD Assisting Tech: Bonnie Caal RPFT Spirometry: 1 DLCO: 1 6 MW: 1 documented in this encounter [facility] 03-03-2023 Note [facility] 02-26-2023 Miscellaneous Notes [facility]tico[facility] Clinic Anticoagulation Episode Summary Anticoagulation Care Providers Provider Role Specialty Phone number Macey Lee MD [facility] Internal Medicine [phone] Gagandeep Marion Duarte is a 77 year [...] Pharmacy Anticoagulation Clinic Pharmacy Anticoagulation Clinic Pager: [phone]. documented in this encounter [facility] 02-14-2023 Miscellaneous Notes Patient notified. Flavia [...] Merced Mckeon PA-C documented in this encounter [facility] 02-12-2023 Miscellaneous Notes [facility] Anticoagulation Episode Summary Anticoagulation Care Providers Provider Role Specialty Phone number Macey Lee MD Responsible Internal Medicine [phone] Gagandeep Marion Duarte is a 77 year [...] Pharmacy Anticoagulation Clinic Pharmacy Anticoagulation Clinic Pager: [phone]. documented in this encounter [facility] 02-05-2023 Note [facility] 02-04-2023 Miscellaneous Notes Patient returned call and given provider's message below with verbalized understanding. Transferred to [facility] to schedule US. Left message to call office. 02/04/2023 1:39 PM Please let patient know Alkaline phosphate increased again and another level was elevated indicating a liver cause for elevation. I am ordering an US to further evaluate liver Thank you Neeta Bowman APRN.EILEEN documented in this encounter [facility] 02-04-2023 Miscellaneous Notes [facility] Anticoagulation Episode Summary Anticoagulation Care Providers Provider Role Specialty Phone number Macey Lee MD Responsible Internal Medicine [phone] Gagandeep Marion Duarte is a 77 year [...] denies need for refills. Maryan Berumen [facility] Clinical Pharmacist, Pharmacy Anticoagulation Clinic Pharmacy Anticoagulation Clinic Pager: [phone]. PATIENT CALL Patient called call center regarding results. Patient tested INR today and it was 3.4. Patient will report the result to [facility], hasn't done so yet. PT INR (no units) Date Value 08/08/2022 2.5 08/09/2021 1.7 01/25/2021 3.4 (BioTel) INR Home CoaguChek (no units) Date Value 02/02/2023 6.0 01/08/2023 3.7 12/17/2022 3.4 Greg Wilson (Medication Tech) documented in this encounter [facility] 02-03-2023 Miscellaneous Notes PATIENT CALL Received call from Summer with [facility] to report home meter result for patient. [facility] has already addressed this result (see below); nothing further needed at this time. Fara Chávez CPhT (Travel Rn Or) Pharmacy Anticoagulation Clinic [facility] Anticoagulation Episode Summary Anticoagulation Care Providers Provider Role Specialty Phone number Macey Lee MD [facility] Internal Medicine [phone] Gagandeepadán Duarte is a 77 year old year [...] Pharmacy Anticoagulation Clinic Pharmacy Anticoagulation Clinic Pager: [phone]. documented in this encounter [facility] 01-31-2023 Note [facility] 01-27-2023 Note [facility] 01-27-2023 Note [facility] 01-27-2023 History of Presen t illness Narrative Virtualist Distance Health Note (CDM/TCM//CC HC/H@[facility] escalations) Gagandeep Duarte has consented to this telephone encounter. Persons Present: patient and patient's spouse/significant other Triage source: [facility] provider escalation Was patient downgraded (i.e. disposition other than go to the ED was advised)? No Contacted by phone, FaceTime, Google Duo, Zoom, Doximity, other: phone 1:04 PM History [...] SOB at rest feels he needs ED Reeling Machine Setup Operator [address] did not feel [...] as Primary Virtualist, Secondary Virtualist, or [facility] Telehealth provider: Primary SIGNATURE: David Miles MD PATIENT NAME: Gagandeep Duarte DATE: January 27, 2023 documented in this encounter [facility] 01-27-2023 History of Presen t illness Narrative [facility] Telephonic Outreach Provider Action/FYI: Routed and Pages Virtual Provider Dr. Braden Ferrer Call from Pt's who noted concern, Pt was seen in [place] ER 2 days ago for Sob, CXR [...] to talk about today? Yes Based on therapy site coordinator, the following disposition is advised: Sent to virtualist. Makayla Maldonado RN January 27, 2023 12:46 PM documented in this encounter [facility] 01-25-2023 Note [facility] 01-24-2023 Miscellaneous Notes Called and spoke with [...] Yakelin Mckay RN documented in this encounter [facility] 01-13-2023 Miscellaneous Notes Called and spoke with the patient. Patient asking what rare LACQUER COATER means in latest Pacemaker check. Answered questions and patient denies any other questions at this time. Yakelin Mckay RN Patient seen today by PCP, Patient asking for clarification on recent Pacemaker results. Please call patient [phone] documented in this encounter [facility] 01-13-2023 Note [facility] 01-13-2023 Instructions Neeta Bowman APRN.CNP - 01/13/2023 10:46 AM EDT Start taking your torsemide in the morning documented in this encounter [facility] 01-13-2023 History of Presen t illness Narrative CC: Patient presents with: Fatigue: Increased fatigue, review results HPI Gagandeep Duarte is a 77 year old adult who presents today for increased fatigue. Also wanting to discuss pacemaker interrogation results. Unable to fully educate patient as he wanted to know what rare LACQUER COATER meant. Discussed the importance of discussing this [...] pain Bradycardia CHF (congestive heart failure) ([facility]) Dyspepsia Fracture History of sick sinus syndrome Hyperlipidemia 05/03/2015 Hypertension 12/26/2014 Hypogonadism in male Inguinal hernia Mitral valve regurgitation [facility] [place] valve replacement 1989 Panic attacks Permanent atrial fibrillation ([facility]) atrial fibrillation diagnosed 2008, permanent by 2016 [...] LV systolic dysfunction ECHO TRANSESOPHAG CONGEN PROBE [facility] IMG I&R 05/18/2020 see report; notable for [...] Neeta Bowman APRN.CNP documented in this encounter [facility] 01-09-2023 Miscellaneous Notes Pharmacy electronically requests the following refill(s) Requested Prescriptions Pending Prescriptions Disp Refills torsemide (DEMADEX) 20 mg tablet [Pharmacy Med Name: Torsemide 20 MG Oral Tablet] 90 tablet 3 Sig: Take 1 tablet by mouth once daily Yakelin Mckay RN documented in this encounter [facility] 01-08-2023 Miscellaneous Notes [facility] Antico[facility] Clinic Anticoagulation Episode Summary Anticoagulation Care Providers Provider Role Specialty Phone number Macey Lee MD Responsible Internal Medicine [phone] Gagandeep Marion Duarte is a 77 year [...] Pharmacy Anticoagulation Clinic Pharmacy Anticoagulation Clinic Pager: [phone]. Gagandeep Duarte was called and reminded to test INR today or as soon as possible. Flavia Whitmore RPh documented in this encounter [facility] 12-17-2022 Miscellaneous Notes [facility] Anticoagulation Episode Summary Anticoagulation Care Providers Provider Role Specialty Phone number Macey Lee MD Responsible Internal Medicine [phone] Gagandeep Duarte is a 77 year old [...] Pharmacy Anticoagulation Clinic Pharmacy Anticoagulation Clinic Pager: [phone]. documented in this encounter [facility] 12-16-2022 Miscellaneous Notes Gagandeep Duarte was called and reminded to test INR today or as soon as possible. Patient was due to test INR today. Will continue to monitor for results. documented in this encounter [facility] 11-25-2022 Miscellaneous Notes [facility] Anticoagulation Clinic Anticoagulation Episode Summary Anticoagulation Care Providers Provider Role Specialty Phone number Macey Lee MD [facility] Internal Medicine [phone] Gagandeepadán Duarte is a 77 year old year [...] instructed to call [facility] at [phone] with any questions or concerns. Husam Chilel RPh Clinical Pharmacist, Pharmacy Anticoagulation Clinic Pharmacy Anticoagulation Clinic Pager: [phone] documented in this encounter [facility] 11-22-2022 Note [facility] 11-22-2022 History of Presen t illness Narrative Reason for Visit Patient presents with: F/U HTN 3 Month Gagandeep Marion Haim is a 77 year old male who presents here today for Above Complaints.. Health Maintenance DTAP,TDAP,TD(1 - Tdap) ADVANCE DIRECTIVE DISCUSSION SHINGRIX VACCINE(3 of 3) HPI Pulm Fib: Patient completed At [place] his pulmonary rehab for ILD, and pulm [...] pain Bradycardia CHF (congestive heart failure) ([facility]) Dyspepsia Fracture History of sick sinus syndrome [...] LV systolic dysfunction ECHO TRANSESOPHAG CONGEN PROBE [facility] I&R 05/18/2020 see report; notable [...] Macey Lee MD documented in this encounter [facility] 11-21-2022 Miscellaneous Notes Pt was due to test INR today. No result received. Will continue to monitor for result. Angela Arguello RPh.' documented in this encounter [facility] 11-11-2022 Miscellaneous Notes Patient's request for medication is as follows: Requested Prescriptions Pending Prescriptions Disp Refills lisinopril (ZESTRIL) 10 mg tablet 90 tablet 3 Sig: Take 1 tablet by mouth once daily. Last visit 08/2022 Prescription(s) as above. Please process accordingly. Yanet Peña RN documented in this encounter [facility] 11-04-2022 Miscellaneous Notes Patient has been [...] Flavia Colin LPN documented in this encounter [facility] 10-22-2022 Miscellaneous Notes Called and left [...] of left thigh from 10/14/2022 done by [facility]. Ordered by Neeta Bowman who is out this week. Sending to Dr. Lee for review. Please review and advise, Barb Aleman RN documented in this encounter [facility] 10-21-2022 Note [facility] 10-21-2022 History and physical note SUBSEQUENT VISIT [...] Geovanny Ray MD documented in this encounter [facility] 10-21-2022 Note [facility] 10-21-2022 History of Presen t illness Narrative IRB 22-608: A Randomized, Double-blind, Placebo-controlled, Phase 3 Study of the Efficacy and Safety of Inhaled Treprostinil in Subjects with Idiopathic Pulmonary Fibrosis Gagandeep Schultz Haim is a 77 y.o. non-, non-Niuean, white male (at ), never-smoker, here today [...] for nutritional supplementation once daily Start date: Stop date: ongoing Lisinopril 10mg capsule for [...] performed? Not at today's visit HR= QRS= MI= QT= QTcF= Significant findings: HRCT date: Done [...] is eligible for randomization visit. Homer Garcia French Comber documented in this encounter [facility] 10-21-2022 Note [facility] 10-21-2022 History of Presen t illness Narrative IRB 22-608: A Randomized, Double-blind, Placebo-controlled, Phase 3 Study of the Efficacy and Safety of Inhaled Treprostinil in Subjects with Idiopathic Pulmonary Fibrosis Gagandeep Duarte is a 77 y.o. non-, non-Niuean, white male (at ), never-smoker, here today [...] Hyperlipidemia (dx: ??/??/1999) 6. General Arthralgias (dx: ??/??) 7. Inguinal hernia (dx ?/??/2011) 8. Hypertension (dx: ??/??/2009) 9. Mitral valve regurgitation (dx ?/?) 10. General Myalgias (dx: ??/??) 11. Permanent atrial fibrillation (dx: ?/?) 12. [...] performed? Not at today's visit HR= QRS= MI= QT= QTcF= Significant findings: HRCT date: Done [...] is eligible for randomization visit. Homer Garcia French Comber documented in this encounter [facility] 10-21-2022 History of Presen t illness [...] 2022 11:29 AM documented in this encounter [facility] 10-17-2022 Miscellaneous Notes [facility] Antico[facility] Clinic Anticoagulation Episode Summary Anticoagulation Care Providers Provider Role Specialty Phone number Macey Lee MD [facility] Internal Medicine [phone] Gagandeep Duarte is a 77 year old [...] INR check scheduled on 10/31/2022 Maryan Berumen RPh Clinical Pharmacist, Pharmacy Anticoagulation Clinic Pharmacy Anticoagulation Clinic Pager: [phone]. documented in this encounter [facility] 10-15-2022 Miscellaneous Notes Order for US has been faxed to [facility] central scheduling. Patient aware of same. Patient would like to have US Extremity Fluid Collection done at [facility]. Patient canceled the October 24 appointment in [place] on-line. Please advise and call patient. documented in this encounter [facility] 10-14-2022 Note [facility] 10-14-2022 Note [facility] 10-14-2022 History of Presen t illness Narrative [...] LV systolic dysfunction ECHO TRANSESOPHAG CONGEN PROBE [facility] I&R 05/18/2020 see report; notable [...] Neeta Bowman APRN.CNP documented in this encounter [facility] 10-09-2022 Miscellaneous Notes Called pt back [...] Pharmacy Anticoagulation Clinic Patient returned the call. [phone] [facility] Anticoagulation Episode Summary Anticoagulation Care Providers Provider Role Specialty Phone number Macey Lee MD Responsible Internal Medicine [phone] Gagandeep Marion Duarte is a 77 year [...] Pharmacy Anticoagulation Clinic Pharmacy Anticoagulation Clinic Pager: [phone]. PATIENT CALL [facility] called call center regarding results. PT INR (no units) Date Value 08/08/2022 2.5 08/09/2021 1.7 01/25/2021 3.4 (BioTel) INR Home CoaguChek (no units) Date Value 10/08/2022 5.5 09/20/2022 2.5 09/12/2022 4.0 Patient can be reached at [phone] Greg Wilson (Medication Tech) documented in this encounter [facility] 10-04-2022 Miscellaneous Notes Patient due to test INR today. Will continue to monitor for results. Deisy Naylor RPh documented in this encounter [facility] 10-01-2022 Note HNO ID: [id number] Author: Tereso Garcia [facility] Service: ? Author Type: ? Type: Progress Notes Filed: 10/01/2022 2:15 PM Note Text: Per [place] study protocol. [facility] 09-13-2022 Miscellaneous Notes Patient returned admin's voicemail. Admin relayed message from Dr. Galan regarding no need for routine bloodwork as he is off anti fibrotics. Patient expressed gratitude and stated that he understood. No additional action needed. Contacted patient to inform him that he doesn't need regular blood work from Dr. Galan's standpoint since he is off the antifibrotics. Patient did not answer. Admin left voicemail with callback info. Patient called to inquire about standing lab orders for CBC+DIFF and CMP. Please notify the patient of the frequency of lab work that should be performed. documented in this encounter [facility] 09-12-2022 Miscellaneous Notes [facility] Anticoagulation Clinic Anticoagulation Episode Summary Anticoagulation Care Providers Provider Role Specialty Phone number Macey Lee MD [facility] Internal Medicine [phone] Gagandeep Marion Duarte is a 77 year [...] denies need for refills. Maryan Berumen [facility] Clinical Pharmacist, Pharmacy Anticoagulation Clinic Pharmacy Anticoagulation Clinic Pager: [phone]. 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 PATIENT CALL [employer] called call center regarding results PT INR (no units) Date Value 08/08/2022 2.5 08/09/2021 1.7 01/25/2021 3.4 ([place]) INR Home CoaguChek (no units) Date Value 09/07/2022 5.6 08/08/2022 2.5 07/18/2022 2.2 Patient can be reached at [phone] Greg Wilson, Travel Rn Or (digital marketing consultant) Pharmacy Anticoagulation Clinic documented in this encounter [facility] 08-30-2022 Miscellaneous Notes Patient due to test INR today. Will continue to monitor for results. 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 Dogs [...] LV systolic dysfunction ECHO TRANSESOPHAG CONGEN PROBE [facility] I&R 05/18/2020 see report; notable [...] from the last visit conducted by Nancy Galan MD Except where noted in bold BP [...] ! DNA Antibody w/Confirmation <30 IU/mL 12.23 Anti-JOB COACH <1.0 AI <1.0 AI <0.2 <0.2 Ribosomal JOB COACH Ab <1.0 AI <1.0 AI 0.2 0.2 [...] Negative Negative Polymyositis Interpretation See Note Ribosomal JOB COACH Qualitative Negative Negative Negative Negative JOB COACH Antibody QUAL Negative Negative Negative Negative SSA [...] 63.0 Lymph% (%) Date Value 03/07/2022 21.8 [place]% (%) Date Value 03/07/2022 9.4 Eosin% (%) Date Value 07/09/2021 3.6 Baso% (%) Date Value 03/07/2022 1.0 Abs Neut (k/uL) Date Value 03/07/2022 3.94 Abs [place] (k/uL) Date Value 03/07/2022 0.59 Abs Eosin [...] Expiration Date: 09/25/2023 Scheduling Instructions: Please call [phone] to schedule, cancel, or change an appointment. [...] me with any questions. Best Regards, Nancy Galan MD, [facility] Staff Physician Respiratory [place] I spent 35 minutes on this encounter [...] not fully corrected. documented in this encounter [facility] 08-22-2022 History of Presen t illness Narrative Reason for Visit Patient presents with: Recheck: Fibrosis questions Gagandeep Duarte is a 76 year old male who presents here today for Above Complaints.. Health Maintenance HEPATITIS C SCREENING SHINGRIX VACCINE(2 of 3) DTAP,TDAP,TD(1 - Tdap) ADVANCE DIRECTIVE DISCUSSION HPI [place] he was done with his pulmonary rehab [...] LV systolic dysfunction ECHO TRANSESOPHAG CONGEN PROBE [facility] I&R 05/18/2020 see report; notable for [...] 427.31, ICD10: I48.21 Cont the coumadin. Macey Lee MD documented in this encounter [facility] 08-21-2022 Nurse Note NO CARDIAC CONCERNS TODAY documented in this encounter [facility] 08-21-2022 History of Presen t illness Narrative PRIMARY CARE PHYSICIAN: Macey Lee [address] [place] [address] Patient Care Team: Macey Lee MD as PCP - General (Internal Medicine) Pharmacist 13 as Pharmacist (Pharmacy) Makayla Maldonado, VIKY as Medical Secretary Receptionist (Internal Medicine) Jose Ramon Contreras MD as Specialty Celery Stripper (Cardiology) Linus Madrid MD as Specialty Celery Stripper (Cardiology) Nancy Galan MD as Specialty Celery Stripper (Pulmonary Disease) Natalia Gaffney MD as Specialty Celery Stripper (Rheumatology) CHIEF COMPLAINT: Follow up for arrhythmia [...] finished 3 months of pulmonary rehab at [facility]. I have confirmed and edited as [...] LV systolic dysfunction ECHO TRANSESOPHAG CONGEN PROBE [facility] I&R 05/18/2020 see report; notable [...] 5 YRS/> REDUCIBLE 2011 Hernia repair, inguinal SOCIAL HISTORY Social History [...] 3 mg tablet Take as directed by [facility] Anticoagulation Clinic. potassium chloride (K-TAB) 10 mEq [...] wave abnormality Device Check: pacemaker evaluation by [facility] dated today 08/21/2022, encounter [...] which included preparing to see the patient, [id number] patient care, completing clinical documentation, obtaining and/or [...] He will continue to follow up with [facility] under my supervision. Return [...] 4 - Moderate documented in this encounter [facility] 08-13-2022 Miscellaneous Notes Pharmacy verified in [facility] Patient has been identified by name [...] Darlene Mata Pss documented in this encounter [facility] 08-09-2022 Miscellaneous Notes [facility] Anticoagulation Clinic Anticoagulation Episode Summary Anticoagulation Care Providers Provider Role Specialty Phone number Macey Lee MD Responsible Internal Medicine [phone] Gagandeep Marion Duarte is a 76 year [...] Pharmacy Anticoagulation Clinic Pharmacy Anticoagulation Clinic Pager: [phone]. documented in this encounter [facility] 08-08-2022 Miscellaneous Notes Gagandeep Marion Haim was called, left VM at [phone] (home/cell) and reminded to test INR today or as soon as possible. Maryan Berumen RPh Patient was due to test INR today will continue to monitor for results. Mireya Madsen PharmD documented in this encounter [facility] 07-18-2022 Miscellaneous Notes [facility] Anticoagulation Clinic Anticoagulation Episode Summary Anticoagulation Care Providers Provider Role Specialty Phone number Macey Lee MD Responsible Internal Medicine [phone] Gagandeep Marion Duarte is a 76 year [...] Pharmacy Anticoagulation Clinic Pharmacy Anticoagulation Clinic Pager: [phone]. documented in this encounter [facility] 07-01-2022 Miscellaneous Notes [facility] Anticoagulation Clinic Anticoagulation Episode Summary Anticoagulation Care Providers Provider Role Specialty Phone number Macey Lee MD Responsible Internal Medicine [phone] Gagandeep Marion Duarte is a 76 year [...] Pharmacy Anticoagulation Clinic Pharmacy Anticoagulation Clinic Pager: [phone]. documented in this encounter [facility] 06-17-2022 Miscellaneous Notes [facility] Anticoagulation Clinic Anticoagulation Episode Summary Anticoagulation Care Providers Provider Role Specialty Phone number Macey Lee MD Responsible Internal Medicine [phone] Gagandeep Marion Duarte is a 76 year [...] Pharmacy Anticoagulation Clinic Pharmacy Anticoagulation Clinic Pager: [phone]. documented in this encounter [facility] 06-07-2022 Miscellaneous Notes Patient due to test INR today. Will continue to monitor for results. Deisy Naylor RPh documented in this encounter [facility] 06-04-2022 Miscellaneous Notes Last OV: 05/27/22 Next OV: N/A documented in this encounter [facility] 06-04-2022 Miscellaneous Notes Patient's request for medication is as follows: Requested Prescriptions Pending Prescriptions Disp Refills carvedilol (COREG) 3.125 mg tablet 180 tablet 3 Sig: Take 1 tablet by mouth twice daily. Last seen 04/01/2022 in [place]. Follow up scheduled for 10/14/2022. Prescription(s) as above. Please process accordingly. Erin Way LPN documented in this encounter [facility] 05-31-2022 Miscellaneous Notes [facility] Anticoagulation Clinic Anticoagulation Episode Summary Anticoagulation Care Providers Provider Role Specialty Phone number Macey Lee MD [facility] Internal Medicine [phone] Gagandeep Marion Duarte is a 76 year [...] Pharmacy Anticoagulation Clinic Pharmacy Anticoagulation Clinic Pager: [phone]. documented in this encounter [facility] 05-28-2022 Miscellaneous Notes Patient calls in to review lab results. Reviewed Negative for Influenza A & B and Positive for Covid. Reviewed Care Advice and Medications prescribed at [facility] 05/28/2022. Patient verbalizes understanding and will phone back with any further questions. Barb Aleman RN documented in this encounter [facility] 05-28-2022 History of Presen t illness [...] IV DATA: Not applicable SIGNED BY: RT Pepito(Marion) May 28, 2022 11:36 AM documented in this encounter [facility] 05-27-2022 History of Presen t illness [...] LV systolic dysfunction ECHO TRANSESOPHAG CONGEN PROBE [facility] I&R 05/18/2020 see report; notable [...] Neeta Bowman APRN.CNP documented in this encounter [facility] 05-16-2022 Miscellaneous Notes [facility] Anticoagulation Clinic Anticoagulation Episode Summary Anticoagulation Care Providers Provider Role Specialty Phone number Macey Lee MD Responsible Internal Medicine [phone] Gagandeep Marion Duarte is a 76 year [...] Pharmacy Anticoagulation Clinic Pharmacy Anticoagulation Clinic Pager: [phone]. Patient was due to test INR today. Will continue to monitor for results. documented in this encounter [facility] 05-14-2022 History of Presen t illness [...] 2022 4:25 PM documented in this encounter [facility] 05-14-2022 History of Presen t illness Narrative Images from the original note were not included. Rheumatology Outpatient Clinic Follow Up Visit Date of Service: 05/14/2022 Patient: Gagandeep Duarte Medical Record: [id number] Primary Care Physician: Macey Lee MD Last [...] lower thighs, back. Had a visit to [facility] on 10/27 for ? Urticarial itchy [...] LV systolic dysfunction ECHO TRANSESOPHAG CONGEN PROBE [facility] I&R 05/18/2020 see report; notable [...] 3 mg tablet Take as directed by [facility] Anticoagulation Clinic. 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 Mi-2 (nuclear helicase protein) Antibody Negative Negative PL-7 (THREONYL-TRNA SYNTHETASE) ANTIBODY Negative Negative PL-12 (ALANYL-TRNA SYNTHETASE) ANTIBODY Negative Negative P155/140 Antibody Negative Negative Comment: Performed by [employer], [facility],[place] [address] [email or web address], Lizabeth Gómez MD, Lab. Director EJ (GLYCYL-TRNA [...] on 03/21/2022 Name Date COVID-19 vaccine, monovalent (PAYMEY) 11/17/2021 , 05/09/2021 , 10/04/2020 , 09/08/2020 [...] diagnosis) (J84.9) ILD (interstitial lung disease) ([facility]) (R74.8) Alkaline phosphatase elevation + NXP Ab [...] Gaffney MD Rheumatology documented in this encounter [facility] 05-02-2022 Miscellaneous Notes Received message from [facility] indication Patient advised stopped therapy dur to side effects. We have discharged from [facility] today. Noted.- danielle Parekh Svetlana [phone] ext [phone] Shay Tejeda documented in this encounter [facility] 05-02-2022 History of Presen t illness Narrative Reason for Visit Patient presents with: Recheck: 6 month Gagandeepadán Duarte is a 76 year old male [...] LV systolic dysfunction ECHO TRANSESOPHAG CONGEN PROBE [facility] I&R 05/18/2020 see report; notable [...] Macey Lee MD documented in this encounter [facility] 04-26-2022 Miscellaneous Notes Received fax from Izabella Barclay with [facility] [[phone] ext [phone]] stating: Patient advised stopped therapy due to side effects. - We discharged from [facility] today. Shay Tejeda Received a call from [facility] inquiring about patient's pirfenidone dosing. After reviewing patient's chart, admin informed pharmacy that we would have to call back with clarification after getting clinical guidance. Admin contacted Onel Zavala for guidance. Onel Zavala will consult with Dr. Galan before giving guidance. [facility] requests callback regarding Pirfenidone dosing plan PH: [phone] F: [phone] documented in this encounter [facility] 04-22-2022 Miscellaneous Notes [facility] Anticoagulation Clinic Anticoagulation Episode Summary Anticoagulation Care Providers Provider Role Specialty Phone number Macey Lee MD [facility] Internal Medicine [phone] Gagandeep Duarte is a 76 year old [...] instructed to call [facility] at [phone] with any questions or concerns. Husam Chilel RPh Clinical Pharmacist, Pharmacy Anticoagulation Clinic Pharmacy Anticoagulation Clinic Pager: [phone] documented in this encounter [facility] 04-19-2022 Miscellaneous Notes Patient has been identified by name and date of : Yes Patient phones for refill(s): Requested Prescriptions Pending Prescriptions Disp Refills warfarin (COUMADIN) 3 mg tablet Sig: Take as directed by [facility] Anticoagulation Clinic. Date of last office visit in primary care: 03/22/22 next apt 05/02/22 Last 2 Encounter Wt Readings: Date: Wt: 04/02/2022 80.8 kg (178 lb 3.2 oz) 04/01/2022 80 kg (176 lb 5.9 oz) Previous labs/tests for medication: Not applicable Thank you. Jillian Alexandra LPN documented in this encounter [facility] 04-16-2022 Miscellaneous Notes Spoke to patient. Clarified dosing. PATIENT CALL Patient called call center regarding question. Patient left message asking to speak to [facility] as he had a question about dosing. Patient can be reached at [phone] Greg Wilson ([employer]) documented in this encounter [facility] 04-02-2022 History of Presen t illness [...] LV systolic dysfunction ECHO TRANSESOPHAG CONGEN PROBE [facility] I&R 05/18/2020 see report; notable [...] 5 YRS/> REDUCIBLE 2012 Hernia repair, inguinal PAST MEDICAL HISTORY Diagnosis [...] 3 mg tablet Take as directed by [facility] Anticoagulation Clinic. Current Facility-Administered Medications Medication Dose [...] with oil: No documented in this encounter [facility] 04-01-2022 History of Presen t illness Narrative Images from the original note were not included. Jose Ramon Contreras MD Interventional Cardiology [facility] [address] [place], [place] [address] [phone] Chief Complaint Patient presents with: Follow Up [...] replacement) 12/02/[address] has a [address] [place] valve in 1989. On coumadin since. He [...] LV systolic dysfunction ECHO TRANSESOPHAG CONGEN PROBE [facility] I&R 05/18/2020 see report; notable [...] 3 mg tablet Take as directed by [facility] Anticoagulation Clinic. Current Facility-Administered Medications Medication Dose [...] correct any errors. documented in this encounter [facility] 04-01-2022 Miscellaneous Notes [facility] Anticoagulation Clinic Anticoagulation Episode Summary Anticoagulation Care Providers Provider Role Specialty Phone number Macey Lee MD Responsible Internal Medicine [phone] Gagandeep Marion Haim is a 76 year old year old [...] instructed to call [facility] at [phone] with any questions or concerns. Husam Chilel RPh Clinical Pharmacist, Pharmacy Anticoagulation Clinic Pharmacy Anticoagulation Clinic Pager: [phone] documented in this encounter [facility] 03-29-2022 History of Presen t illness Narrative Patient came for left ear lavage. States that he has been using OTC drops as recommended at last appt. Visualized TM and open canal at this time with no cerumen noted. No further action taken at this time. Dorota Jacobs LPN documented in this encounter [facility] 03-27-2022 Miscellaneous Notes Patient has been [...] Hilda Nicole LPN documented in this encounter [facility] 03-26-2022 Miscellaneous Notes Patient called regarding order placed by Dr. Galan for pulmonary rehab orders. Patient stated that he can get this done at [facility] near his home but they need additional information from Dr. Galan to do this. Admin contacted [facility] at [phone] to inquire and left voicemail requesting callback. Will send records once callback and records request is received. documented in this encounter [facility] 03-22-2022 Miscellaneous Notes Patient scheduled for nurse visit 03/29/22 to receive ear lavage. Please place order at this time. Dorota Jacobs LPN documented in this encounter [facility] 03-22-2022 History of Presen t illness Narrative CC: Patient presents with: Ear Problem: L ear, trouble hearing x 1 week HPI Gagandeep Marion Haim is a 76 year old male who [...] LV systolic dysfunction ECHO TRANSESOPHAG CONGEN PROBE [facility] I&R 05/18/2020 see report; notable [...] (COUMADIN) 3 mg tablet^Take as directed by [facility] Anticoagulation Clinic.^Disp: ^Rfl: FAMILY HISTORY Problem Relation [...] Patient agreeable to treatment plan. Neeta Bowman APRN.HEAD OF ETHICS AND COMPLIANCE documented in this encounter [facility] 03-21-2022 Instructions Nancy Galan MD - 03/21/2022 2:33 PM EDT - decrease pirfenidone to 1 tab three times / day- let me know if the side effects persist - pulmonary rehab - please start close to home - hepatology follow up as planned for liver tests - Repeat breathing tests, walk in about 6 months - - return 6 month - virtual visit documented in this encounter [facility] 03-21-2022 Procedure note Associated Ord er(s): [...] SIGNATURE: Geovanny Subramanian MD PATIENT NAME: Gagandeep Schultz Haim DATE: March 21, 2022 TIME: 4:19 PM documented in this encounter [facility] 03-21-2022 History of Presen t illness [...] 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 Current Facility-Administered Medications Medication Dose Route Frequency perflutren lipid microspheres 1.3 mL in NaCl (PF) 0.9% 10 mL injection (DEFINITY) INTRAVENOUS DIRECTED PRN sodium chloride 0.9 % (flush) 10 mL (BD POSIFLUSH) 10 mL INTRAVENOUS DIRECTED PRN PHYSICAL EXAMINATION Physical Exam above was completed in entirety 03/21/22, and is unchanged from the last visit conducted by Nancy Galan MD Except where noted in bold BP [...] 12/17/21 15:50 12/17/21 15:51 OSCAR Negative Negative OCSAR by EIA, Qual Negative Positive ! DNA Antibody w/Confirmation <30 IU/mL 12.23 Anti-JOB COACH <1.0 AI <1.0 AI <0.2 <0.2 Ribosomal JOB COACH Ab <1.0 AI <1.0 AI 0.2 0.2 [...] Negative Negative Polymyositis Interpretation See Note Ribosomal JOB COACH Qualitative Negative Negative Negative Negative JOB COACH Antibody QUAL Negative Negative Negative Negative SSA [...] 63.0 Lymph% (%) Date Value 03/07/2022 21.8 [place]% (%) Date Value 03/07/2022 9.4 Eosin% (%) Date Value 07/09/2021 3.6 Baso% (%) Date Value 03/07/2022 1.0 Abs Neut (k/uL) Date Value 03/07/2022 3.94 Abs [place] (k/uL) Date Value 03/07/2022 0.59 Abs Eosin [...] Expiration Date: 04/20/2023 Scheduling Instructions: Please call [phone] to schedule, cancel, or change an appointment. [...] me with any questions. Best Regards, Nancy Galan MD, [facility] Staff Physician Respiratory [place] I spent 30 minutes on this encounter [...] not fully corrected. documented in this encounter [facility] 03-18-2022 Miscellaneous Notes Left detailed message on [employer]. Please let patient know that this has been sent. Thank you Neeta Bowman APRN.EILEEN Patient is requesting an antibiotic to use prior to his dental visit on 03-18. Pharmacy is [facility] Center. documented in this encounter [facility] 03-11-2022 Miscellaneous Notes [facility] Ambulatory [facility]acy Anticoagulation Clinic Anticoagulation Episode Summary Anticoagulation Care Providers Provider Role Specialty Phone number Macey Lee MD [facility] Internal Medicine [phone] Gagandeep Marion Duarte is a 76 year [...] instructed to call [facility] at [phone] with any questions or concerns. Husam Chilel [facility]ly [facility] Clinical Pharmacist, Pharmacy Anticoagulation Clinic Pharmacy Anticoagulation Clinic Pager: [phone] documented in this encounter [facility] 03-08-2022 Miscellaneous Notes Patient has been [...] Flavia Colin LPN documented in this encounter [facility] 03-07-2022 History of Presen t illness [...] TIME: 2:44 PM documented in this encounter [facility] 03-06-2022 Instructions Pham Bowman APRN.CNP - 03/06/2022 12:53 PM EDT If any unusual pain, swelling, red streaks, pus, fever or other signs of worsening infection, call immediately. documented in this encounter [facility] 03-06-2022 History of Presen t illness Narrative CC: Patient presents with: Suture Removal HPI Gagandeep Duarte is a 76 year old male who presents today for ER follow-up. Facility: [facility] Date of visit: 02/28/22 Reason for visit: [...] LV systolic dysfunction ECHO TRANSESOPHAG CONGEN PROBE [facility] I&R 05/18/2020 see report; notable [...] 3 mg tablet Take as directed by [facility] Anticoagulation Clinic. FAMILY HISTORY Problem Relation Age [...] without difficulty DATA REVIEWED: Outside chart from [facility] ER reviewed. ASSESSMENT/PLAN: 1. Laceration of other [...] Pham Bowman APRN.CNP documented in this encounter [facility] 03-05-2022 History of Presen t illness Narrative Images from the original note were not included. Rheumatology Outpatient Clinic Follow Up Visit Date of Service: 03/05/2022 Patient: Gagandeep Duarte Medical Record: [id number] Primary Care Physician: Macey Lee MD Last [...] lower thighs, back. Had a visit to [facility] on 10/27 for ? Urticarial itchy [...] LV systolic dysfunction ECHO TRANSESOPHAG CONGEN PROBE [facility] IMG I&R 05/18/2020 see report; notable for [...] 3 mg tablet Take as directed by [facility]. 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 Mi-2 (nuclear helicase protein) Antibody Negative Negative PL-7 (THREONYL-TRNA SYNTHETASE) ANTIBODY Negative Negative PL-12 (ALANYL-TRNA SYNTHETASE) ANTIBODY Negative Negative P155/140 Antibody Negative Negative Comment: Performed by [facility], [facility] [address] [email or web address], Lizabeth Gómez MD, Lab. Director EJ (GLYCYL-TRNA [...] Reviewed on 03/05/2022 Name Date COVID-19 vaccine ([facility] - FAYE TOP) 11/17/2021 COVID-19 vaccine ([facility] - PURPLE TOP) 05/09/2021 , 10/04/2020 , [...] Time: 4:44 PM documented in this encounter [facility] 03-04-2022 Instructions Lilia Levy MD - 03/04/2022 10:01 AM EDT Please schedule an appointment to see us in 2 months when your bruising has healed for a repeat examination. Obtain lab work. documented in this encounter [facility] 03-04-2022 History of Presen t illness [...] all other autoimmune w/u negative except for OSACR positive - describes trouble eating food that [...] malar rash discovered during video visit with optoelectronics engineer, here to rule out cutaneous lupus/dermatomyositis. [...] Past Histories independently gathered by the clinical support services manager, and the remaining scribed note accurately describes [...] 4 - Moderate documented in this encounter [facility] 02-28-2022 History of Presen t illness Narrative Nontoxic-appearing male presents urgent care chief plaint head injury. Patient states was walking on the stairs today when he tripped falling on the last 2 steps striking his head on a coffee table. Patient presents today for evaluation. Superficial laceration/abrasion noted left scientologist area. Ecchymosis noted around left eye. It was noted patient is on Coumadin. With patient's presenting symptoms and blood thinning medication recommend patient be seen in ED for further evaluation care. Patient verbalized understand agrees with plan of care. Will be seen at [facility]. Brice Menendez APRN.EILEEN documented in this encounter [facility] 02-25-2022 Miscellaneous Notes [facility]ticoagulation [facility] Anticoagulation Episode Summary Anticoagulation Care Providers Provider Role Specialty Phone number Macey Lee MD Responsible Internal Medicine [phone] Gagandeep Marion Duarte is a 76 year [...] Pharmacy Anticoagulation Clinic Pharmacy Anticoagulation Clinic Pager: [phone]. Patient due to test INR today. Will continue to monitor for results. Deisy Naylor RPh documented in this encounter [facility] 02-12-2022 Miscellaneous Notes Patient has been [...] Flavia Colin LPN documented in this encounter [facility] 02-06-2022 Miscellaneous Notes Summary: patient returned [...] time. Advised patient I would update Dr Galan and if he wanted to make any [...] Onel Zavala RN documented in this encounter [facility] 01-31-2022 Instructions Le Clark APRN.HOSPICE NURSE PRACTITIONER - 01/31/2022 2:50 PM EDT Aim for about 64 ounces of fluids per day -noncaffeinated beverages Recheck metabolic panel in the next couple weeks -order placed Let us know if you are not feeling improved with this documented in this encounter [facility] 01-31-2022 History of Presen t illness [...] Followed by Dr Contreras cardiology. Sees Nancy Galan MD for idiopathic pulmonary fibrosis. Started on [...] 3 mg tablet Take as directed by [facility] Anticoagulation Clinic. 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 Le Clark APRN.CNS Medical Decision Making: Problems: Moderate: 1+ chronic illnesses with change Data: Unique test(s) ordered: 1 Medical Decision Making Level: 2 - Straightforward documented in this encounter [facility] 01-31-2022 Miscellaneous Notes Patient calls to [...] symptoms of dehydration. Protocols used: DIZZINESS - [id number] documented in this encounter [facility] 01-24-2022 Miscellaneous Notes Patient due to test INR today. Will continue to monitor for results. Ashleigh Ware RPh documented in this encounter [facility] 01-09-2022 Miscellaneous Notes KAREN: 10/29/2021 Last [...] Raffi Barnes Ma documented in this encounter [facility] 01-08-2022 Miscellaneous Notes Patient's request for medication is as follows: Refused Prescriptions Disp Refills torsemide (DEMADEX) 20 mg tablet 90 tablet 3 Sig: Take 1 tablet by mouth once daily. NIVIA: No Refused By: ERIN WAY Reason for Refusal: A Refill not appropriate Reason for Refusal Comment: Duplicate request Prescription(s) as above. Please process accordingly. Erin Way LPN documented in this encounter [facility] 12-27-2021 Miscellaneous Notes Replied to [employer] message with the same question Patient called for test results. Please contact patient. documented in this encounter [facility] 12-20-2021 Miscellaneous Notes GAGANDEEP DUARTE Snider: [id number] MERLIN Outcome: Approved Today PA Case: [id number], Status: Approved, Coverage Starts on: 08/11/2021 12:00:00 AM, Coverage Ends on: 08/10/2022 12:00:00 AM. Drug : Esbriet 267MG tablets Form: [employer] Electronic PA Form Shay Tejeda Medication prior authorization initiated for patient through CoverMyMeds / Esbriet 267 mg / waiting for response. Shay Tejeda documented in this encounter [facility] 12-18-2021 Miscellaneous Notes Received message request from Dr. Galan today 12/18/2021; new initiation of Esbriet 267 mg; RX complete; pending signature; replied back to sender. documented in this encounter [facility] 12-17-2021 Miscellaneous Notes Patient was due to test INR today. Will continue to monitor for results. 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 Dogs [...] LV systolic dysfunction ECHO TRANSESOPHAG CONGEN PROBE [facility] I&R 05/18/2020 see report; notable [...] 79.9 Lymph% (%) Date Value 10/29/2021 14.0 [place]% (%) Date Value 10/29/2021 5.6 Eosin% (%) Date Value 07/09/2021 3.6 Baso% (%) Date Value 10/29/2021 0.2 Abs Neut (k/uL) Date Value 10/29/2021 7.63 (H) Abs [place] (k/uL) Date Value 10/29/2021 0.54 Abs Eosin [...] Expiration Date: 12/17/2022 ADULT SIX MINUTE WALK [[id number]] Order Specific Question: Should this patient be [...] me with any questions. Best Regards, Nancy Galan MD, [facility] Staff Physician Respiratory [place] I spent 60 minutes on this encounter [...] not fully corrected. documented in this encounter [facility] 12-05-2021 Miscellaneous Notes Noted Pt called [...] his family or himself to drive to [employer] or [employer] for [employer] apt, would like for him to get that done. documented in this encounter [facility] 12-05-2021 Miscellaneous Notes Addended by: ONEL ZAVALA on: 12/05/2021 11:09 AM Modules accepted: Orders ummary: New ILD-Internal Interstitial Lung Disease Referral Intake Gagandeep Duarte [id number] December 05, 2021 10:43 AM Schedulers: --Please schedule patient with (ILD physicians: Dr. Arron Farr, Dr. Sky Amaya, Dr. Nelson Livingston, Dr. Adriane Erickson, Dr. Geovanny Subramanian, Dr. Emily Tanner, Dr. Cullen Hollis, Dr. Ned Garcia, Dr. Harvey Ying, Dr Nancy Galan, or Dr. Greg Sherman.) --Testing needed 1) Leon/Dlco Consult information: Referred by: Dr Lee Office name/city: [facility] Diagnosis: IPF CT chest:Yes date of last: 12/04/21 where was this performed?: [facility] Biopsy(Surgical or transbronchial): No type: date: where [...] Onel Zavala RN documented in this encounter [facility] 12-04-2021 History of Presen t illness [...] 2021 3:49 PM documented in this encounter [facility] 11-23-2021 Miscellaneous Notes Gagandeep Marion Haim was sent [employer] message and reminded to test INR today or as soon as possible. Deisy Naylor RPh Patient due to test INR today. Will continue to monitor for results. Deisy Naylor RPh documented in this encounter [facility] 11-19-2021 History of Presen t illness [...] my name is Makayla Maldonado RN your Feed Crusher from the [facility] I am calling today for your [...] 2021 2:18 PM documented in this encounter [facility] 11-18-2021 History of Presen t illness [...] contact made with patient Left Message for Patient. Lydiaelvira my name is Shayna Dupree RN from the [facility]. I am calling about your responses to our [employer] questionnaire. Sorry I am not able to speak with you. If you have a problem that needs to be addressed by your physician please contact your PCP office [facility] Out[facility] documented in this encounter [facility] 11-05-2021 Miscellaneous Notes Pt notified and will have rx transferred to [place]. Jillian Gallardo Erin Quinonez APRN.HEAD OF ETHICS AND COMPLIANCE JN Needs to take as prescribed twice [...] his Rx there. documented in this encounter [facility] 03-19-2021 Miscellaneous Notes Gagandeep Duarte was called and reminded to test INR today or as soon as possible. Patient was due to test INR today. Will continue to monitor for results. documented in this encounter [facility] documented as of this encounter (statuses as of 11/05/2021) [facility] History of Past illness Narrative* Problem [...] of this encounter (statuses as of 11/18/2021) [facility] Narrative* Problem [...] of this encounter (statuses as of 11/19/2021) [facility] Narrative* Problem [...] of this encounter (statuses as of 11/19/2021) [facility] N[facility]ative* Problem [...] of this encounter (statuses as of 11/26/2021) [facility] N[facility]ative* Problem [...] of this encounter (statuses as of 12/05/2021) [facility] N[facility]ative* Problem [...] of this encounter (statuses as of 12/05/2021) [facility] Narrative* Problem [...] of this encounter (statuses as of 12/05/2021) [facility] N[facility]ative* Problem [...] of this encounter (statuses as of 12/12/2021) [facility] N[facility]ative* Problem [...] of this encounter (statuses as of 12/17/2021) [facility] N[facility]ative* Problem [...] of this encounter (statuses as of 12/18/2021) [facility] N[facility]ative* Problem [...] of this encounter (statuses as of 12/20/2021) [facility] Narrative* Problem [...] of this encounter (statuses as of 12/24/2021) [facility] Narrative* Problem [...] of this encounter (statuses as of 12/27/2021) [facility] N[facility]ative* Problem [...] of this encounter (statuses as of 01/03/2022) [facility]* Problem [...] of this encounter (statuses as of 01/08/2022) [facility] N[facility]ative* Problem [...] of this encounter (statuses as of 01/09/2022) [facility] Narrative* Problem [...] of this encounter (statuses as of 01/10/2022) [facility] Narrative* Problem [...] of this encounter (statuses as of 01/24/2022) [facility] Narrative* Problem [...] of this encounter (statuses as of 01/31/2022) [facility] N[facility]ative* Problem [...] of this encounter (statuses as of 01/31/2022) [facility] N[facility]ative* Problem [...] of this encounter (statuses as of 02/06/2022) [facility] N[facility]ative* Problem [...] of this encounter (statuses as of 02/12/2022) [facility] Narrative* Problem [...] of this encounter (statuses as of 02/23/2022) [facility] Narrative* Problem [...] of this encounter (statuses as of 02/25/2022) [facility] Narrative* Problem [...] of this encounter (statuses as of 02/28/2022) [facility] N[facility]ative* Problem [...] of this encounter (statuses as of 03/05/2022) [facility]* Problem [...] of this encounter (statuses as of 03/06/2022) [facility] N[facility]ative* Problem [...] of this encounter (statuses as of 03/08/2022) [facility] N[facility]ative* Problem [...] of this encounter (statuses as of 03/08/2022) [facility] N[facility]ative* Problem [...] of this encounter (statuses as of 03/08/2022) [facility] N[facility]ative* Problem [...] of this encounter (statuses as of 03/08/2022) [facility] N[facility]* Problem [...] of this encounter (statuses as of 03/08/2022) [facility] Narrative* Problem [...] of this encounter (statuses as of 03/08/2022) [facility] N[facility]* Problem [...] of this encounter (statuses as of 03/11/2022) [facility] N[facility]ative* Problem [...] of this encounter (statuses as of 03/11/2022) [facility] N[facility]ative* Problem [...] of this encounter (statuses as of 03/18/2022) [facility] N[facility]ative* Problem [...] of this encounter (statuses as of 03/21/2022) [facility] N[facility]ative* Problem [...] of this encounter (statuses as of 03/21/2022) [facility] N[facility]ative* Problem [...] of this encounter (statuses as of 03/21/2022) [facility]* Problem [...] of this encounter (statuses as of 03/21/2022) [facility]* Problem [...] of this encounter (statuses as of 03/22/2022) [facility]* Problem [...] of this encounter (statuses as of 03/26/2022) [facility]* Problem [...] of this encounter (statuses as of 03/27/2022) [facility]* Problem [...] of this encounter (statuses as of 03/29/2022) [facility]* Problem [...] of this encounter (statuses as of 04/01/2022) [facility]* Problem [...] of this encounter (statuses as of 04/01/2022) [facility]* Problem [...] of this encounter (statuses as of 04/16/2022) [facility]* Problem [...] of this encounter (statuses as of 04/17/2022) [facility]* Problem [...] of this encounter (statuses as of 04/19/2022) [facility]* Problem [...] of this encounter (statuses as of 04/22/2022) [facility]* Problem [...] of this encounter (statuses as of 04/26/2022) [facility]* Problem [...] of this encounter (statuses as of 05/02/2022) [facility]* Problem [...] of this encounter (statuses as of 05/02/2022) [facility]* Problem [...] of this encounter (statuses as of 05/14/2022) [facility]* Problem [...] of this encounter (statuses as of 05/15/2022) [facility]* Problem [...] of this encounter (statuses as of 05/16/2022) [facility]* Problem [...] of this encounter (statuses as of 05/27/2022) [facility]* Problem [...] of this encounter (statuses as of 05/28/2022) [facility]* Problem [...] of this encounter (statuses as of 05/29/2022) [facility]* Problem [...] of this encounter (statuses as of 05/31/2022) [facility]* Problem [...] of this encounter (statuses as of 06/05/2022) [facility]* Problem [...] of this encounter (statuses as of 06/06/2022) [facility]* Problem [...] of this encounter (statuses as of 06/07/2022) [facility]* Problem [...] of this encounter (statuses as of 06/17/2022) [facility]* Problem [...] of this encounter (statuses as of 07/01/2022) [facility]* Problem [...] of this encounter (statuses as of 07/08/2022) [facility]* Problem [...] of this encounter (statuses as of 07/18/2022) [facility]* Problem [...] of this encounter (statuses as of 08/14/2022) [facility]* Problem [...] of this encounter (statuses as of 08/15/2022) [facility]* Problem [...] of this encounter (statuses as of 08/15/2022) [facility]* Problem [...] of this encounter (statuses as of 08/21/2022) [facility]* Problem [...] of this encounter (statuses as of 08/21/2022) [facility]* Problem [...] of this encounter (statuses as of 08/22/2022) [facility]* Problem [...] of this encounter (statuses as of 08/22/2022) [facility]* Problem [...] of this encounter (statuses as of 08/26/2022) [facility]* Problem [...] of this encounter (statuses as of 08/29/2022) [facility]* Problem [...] of this encounter (statuses as of 08/30/2022) [facility]* Problem [...] of this encounter (statuses as of 09/09/2022) [facility]* Problem [...] of this encounter (statuses as of 09/12/2022) [facility]* Problem [...] of this encounter (statuses as of 09/13/2022) [facility]* Problem [...] of this encounter (statuses as of 10/04/2022) [facility]* Problem [...] of this encounter (statuses as of 10/09/2022) [facility]* Problem [...] of this encounter (statuses as of 10/14/2022) [facility]* Problem [...] of this encounter (statuses as of 10/15/2022) [facility]* Problem [...] of this encounter (statuses as of 10/17/2022) [facility]* Problem [...] of this encounter (statuses as of 10/21/2022) [facility]* Problem [...] of this encounter (statuses as of 10/22/2022) [facility]* Problem [...] of this encounter (statuses as of 10/22/2022) [facility]* Problem [...] of this encounter (statuses as of 11/04/2022) [facility]* Problem [...] of this encounter (statuses as of 11/04/2022) [facility]* Problem [...] of this encounter (statuses as of 11/12/2022) [facility]* Problem [...] of this encounter (statuses as of 11/21/2022) [facility]* Problem [...] of this encounter (statuses as of 11/23/2022) [facility] Narrative* Problem [...] of this encounter (statuses as of 11/25/2022) [facility] Past illness Narrative* Problem [...] of this encounter (statuses as of 11/25/2022) [facility] Past [facility] Narrative* Problem [...] of this encounter (statuses as of 12/13/2022) [facility] Narrative* Problem [...] of this encounter (statuses as of 12/13/2022) [facility] Narrative* Problem [...] of this encounter (statuses as of 12/17/2022) [facility] Narrative* Problem [...] of this encounter (statuses as of 12/17/2022) [facility] N[facility]ative* Problem [...] of this encounter (statuses as of 01/08/2023) [facility] Narrative* Problem [...] of this encounter (statuses as of 01/10/2023) [facility] N[facility]ative* Problem [...] of this encounter (statuses as of 01/14/2023) [facility] N[facility]ative* Problem [...] of this encounter (statuses as of 01/14/2023) [facility] Narrative* Problem [...] of this encounter (statuses as of 01/24/2023) [facility] Narrative* Problem [...] of this encounter (statuses as of 01/27/2023) [facility] N[facility]ative* Problem [...] of this encounter (statuses as of 01/29/2023) [facility] N[facility]ative* Problem [...] of this encounter (statuses as of 02/03/2023) [facility] N[facility]ative* Problem [...] of this encounter (statuses as of 02/04/2023) [facility] Narrative* Problem [...] of this encounter (statuses as of 02/04/2023) [facility] N[facility]ative* Problem [...] of this encounter (statuses as of 02/12/2023) [facility] N[facility]ative* Problem [...] of this encounter (statuses as of 02/14/2023) [facility] N[facility]ative* Problem [...] of this encounter (statuses as of 02/26/2023) [facility]* Problem [...] of this encounter (statuses as of 03/06/2023) [facility] N[facility]ative* Problem [...] of this encounter (statuses as of 03/07/2023) [facility]* Problem [...] of this encounter (statuses as of 03/11/2023) [facility]* Problem [...] of this encounter (statuses as of 03/14/2023) [facility] N[facility]ative* Problem [...] of this encounter (statuses as of 04/03/2023) [facility]* Problem [...] of this encounter (statuses as of 04/04/2023) [facility]* Problem [...] of this encounter (statuses as of 04/11/2023) [facility] N[facility]ative* Problem [...] of this encounter (statuses as of 04/12/2023) [facility] N[facility]ative* Problem [...] of this encounter (statuses as of 04/24/2023) [facility] N[facility]ative* Problem [...] of this encounter (statuses as of 04/30/2023) [facility] N[facility]ative* Problem [...] of this encounter (statuses as of 04/30/2023) [facility]* Problem [...] of this encounter (statuses as of 05/19/2023) [facility] N[facility]ative* Problem [...] of this encounter (statuses as of 05/21/2023) [facility] N[facility]* Problem [...] of this encounter (statuses as of 05/23/2023) [facility] N[facility]ative* Problem [...] & Plan: The patient has a [employer] [place] valve [...] of this encounter (statuses as of 06/09/2023) [facility] N[facility]* Problem [...] of this encounter (statuses as of 06/10/2023) [facility] N[facility]ative* Problem [...] of this encounter (statuses as of 06/10/2023) [facility] N[facility]ative* Problem [...] of this encounter (statuses as of 06/13/2023) [facility] N[facility]ative* Problem [...] of this encounter (statuses as of 06/24/2023) [facility] N[facility]ative* Problem [...] of this encounter (statuses as of 07/16/2023) [facility] N[facility]ative* Problem [...] as of this encounter (statuses as of 09/12/2023) [facility]* Problem [...] as of this encounter (statuses as of 09/12/2023) [facility] N[facility]ative* Problem [...] as of this encounter (statuses as of 09/12[facility]2023) [facility] SOB (shortness of breath) Shortness of breath [facility] SOB (shortness of breath) Shortness of breath [facility] Shortness of breath Restrictive lung disease Other diseases of lung, not elsewhere classified Abnormal PFT Nonspecific abnormal results of pulmonary system function study [facility] Diagnosis Pulmonary fibrosis (HCC)- Primary Postinflammatory [facility] Anticoagulant long-term use- Primary Long-term (current) use of anticoagulants S/P MVR (mitral valve replacement) Heart valve [facility] by other means [facility] Diagnosis IPF (idiopathic pulmonary fibrosis) (HCC)- Primary Idiopathic pulmonary fibrosis [facility] Diagnosis ILD (interstitial lung disease) (HCC)- Primary Postinflammatory pulmonary fibrosis [facility] Diagnosis Dizziness- Primary Dizziness and giddiness Elevated BUN Other abnormal blood chemistry [facility] Diagnosis S/P MVR (mitral valve replacement) Heart valve replaced by other means [facility] Diagnosis ILD (interstitial lung disease) (HCC) Postinflammatory pulmonary fibrosis Rash Rash and other nonspecific skin eruption Dysphagia, unspecified type [facility] Diagnosis Traumatic injury of head, initial encounter- Primary [facility] Diagnosis ILD (interstitial lung disease) (HCC)- Primary Postinflammatory pulmonary fibrosis Rash Rash and other nonspecific skin eruption Dysphagia, unspecified type Alkaline phosphatase elevation Other nonspecific abnormal serum enzyme levels [facility] Diagnosis Laceration of other part [...] Dysphagia, unspecified type [facility] Diagnosis Elevated alkaline phosphatase level- Primary Other nonspecific abnormal serum enzyme levels [facility] Diagnosis Anxiety and depression Dysthymic disorder [facility] Diagnosis Anxiety and depression Dysthymic disorder [facility] Diagnosis IPF (idiopathic pulmonary fibrosis) (HCC)- Primary Idiopathic pulmonary fibrosis [facility] Diagnosis IPF (idiopathic pulmonary fibrosis) (HCC)- Primary Idiopathic pulmonary fibrosis [facility] Diagnosis Atrial fibrillation, unspecified type (HCC)- Primary [facility] Diagnosis Impacted cerumen of left ear- Primary Impacted cerumen [facility] Diagnosis Impacted cerumen of left ear- Primary Impacted cerumen [facility] Diagnosis Bilateral lower extremity edema Edema [facility] Diagnosis APPOINTMENT CANCELLED- Primary [facility] Diagnosis S/P MVR (mitral valve replacement)- Primary Heart valve replaced by other means Chronic combined systolic and diastolic congestive heart failure (HCC) Chronic combined systolic and diastolic heart failure Cardiomyopathy, nonischemic (HCC) Other primary cardiomyopathies Permanent atrial fibrillation (HCC) Atrial fibrillation [facility] Diagnosis Elevated alkaline phosphatase level Other nonspecific abnormal serum enzyme levels [facility] Diagnosis S/P MVR (mitral valve replacement) Heart valve replaced by other means [facility] Diagnosis ILD (interstitial lung disease) (HCC)- Primary Postinflammatory pulmonary fibrosis Thrombocytopenia (HCC) Thrombocytopenia, unspecified Permanent atrial fibrillation (HCC) Atrial fibrillation Presence of cardiac pacemaker Cardiac pacemaker in situ Cardiomyopathy, nonischemic (HCC) Other primary cardiomyopathies [facility] Diagnosis Fall, initial encounter- Primary ILD (interstitial lung disease) (HCC) Postinflammatory pulmonary fibrosis Alkaline phosphatase elevation Other nonspecific abnormal serum enzyme levels [facility] Diagnosis Fall, initial encounter [facility] Diagnosis Anticoagulant long-term use- Primary [...] by other means [facility] Diagnosis Anxiety and depression Dysthymic disorder [facility] Diagnosis Anticoagulant long-term use- Primary Long-term (current) use of anticoagulants S/P MVR (mitral valve replacement) Heart valve replaced by other means [facility] Diagnosis Mixed hyperlipidemia [facility] Diagnosis S/P MVR (mitral valve replacement) Heart valve replaced by other means [facility] Diagnosis Atrial fibrillation, unspecified type (HCC)- Primary [facility] Diagnosis Permanent atrial fibrillation (HCC)- Primary [...] by other means [facility] Diagnosis Interstitial lung disease (HCC)- Primary Postinflammatory pulmonary fibrosis Pulmonary fibrosis (HCC) Postinflammatory pulmonary fibrosis Anxiety and depression Dysthymic disorder Thrombocytopenia (HCC) Thrombocytopenia, unspecified ILD (interstitial lung disease) (HCC) Postinflammatory pulmonary fibrosis Permanent atrial fibrillation (HCC) Atrial fibrillation [facility] Diagnosis IPF (idiopathic pulmonary fibrosis) (HCC)- Primary Idiopathic pulmonary fibrosis Interstitial pulmonary disease (HCC) Postinflammatory pulmonary fibrosis [facility] Diagnosis Anticoagulant long-term use- Primary Long-term (current) use of anticoagulants S/P MVR (mitral valve replacement) Heart valve replaced by other means [facility] Diagnosis Anticoagulant long-term use- Primary Long-term (current) use of anticoagulants S/P MVR (mitral valve replacement) Heart valve replaced by other means [facility] Diagnosis Anticoagulant long-term use- Primary [...] fibrillation Other fatigue [facility] Diagnosis Anticoagulant long-term use- Primary Long-term (current) use of anticoagulants S/P MVR (mitral valve replacement) Heart valve replaced by other means [facility] Diagnosis Elevated alkaline phosphatase level- Primary Other nonspecific abnormal serum enzyme levels [facility] Diagnosis Gross hematuria- Primary Hematuria, unspecified [...] by other means [facility] Diagnosis Chest pain, unspecified type- Primary Shortness of breath Pneumonia due to infectious organism, unspecified laterality, unspecified part of lung Other fatigue Chronic combined systolic and diastolic congestive heart failure (HCC) Chronic combined systolic and diastolic heart failure Permanent atrial fibrillation (HCC) Atrial fibrillation [facility] Diagnosis Anticoagulant long-term use- Primary Long-term (current) use of anticoagulants S/P MVR (mitral valve replacement) Heart valve replaced by other means documented in this encounter [facility] for referral (narrative)* Outpatient Procedure (Routine) - Pending Review Specialty Diagnoses / Procedures Referred By Malick corrigan Referred To [facility] [place] Diagnoses Pulmonary fibrosis (HCC) Procedures LUNG DIFFUSION CAPACITY (DLCO) DIFFUSING CAPACITY Erin Lowe APRN.CNP [address] [place] [address] [place] [address] Referral ID Status Reason Start Date Expiration Date Visits Requested Visits Authorized [id number] Pending Review Auto-Generat ed Referral 12/05/2021 01/04/2023 1 1 * Outpatient Procedure (Routine) - Pending Review Specialty Diagnoses / Procedures Referred By Malick corrigan Referred To [facility] [place] Diagnoses Pulmonary fibrosis (HCC) Procedures SPIROMETRY WITH DILATOR IF OBSTRUCTED BRNCDILAT RSPSE SPMTRY PRE&POST-BRNCDILAT ADMN Erin Lowe APRN.CNP [address] [place] [address] [place] [address] [place] [address] Referral ID Status Reason Start Date Expiration Date Visits Requested Visits Authorized [id number] Pending Review Auto-Generat ed Referral 12/05/2021 01/04/2023 1 1 [facility] for referral (narrative)* Diagnostic Procedure Only (Routine) - Closed Specialty Diagnoses / Procedures [facility] To Contact XR IMAGING Diagnoses ILD (interstitial lung disease) ([facility]) Rash Dysphagia, unspecified type Procedures XR ESOPHAGRAM RADIOLOGIC EXAM ESOPHAGUS SINGLE CONTRAST STUDY Natalia Gaffney MD [address] [place] [address] Xr Imaging Referral ID Status Reason Start Date Expiration Date V isits Requested Visits Authorized [id number] Closed Auto-Generate d Referral 01/17/2022 02/16/2023 1 1 [facility] for referral (narrative)* Outpatient Procedure (Routine) - Pending Review Specialty Diagnoses / Procedures [facility] Diagnoses IPF (idiopathic pulmonary fibrosis) ([facility]) Procedures SIX MINUTE WALK CARDIOPULMONARY EXERCISE STRESS Nancy Galan MD [address] [place] [address] Respiratory [place] [address] [place] [address] Referral ID Status Reason Start Date Expiration Date Visits Requested Visits Authorized [id number] Pending Review Auto-Generat ed Referral 09/21/2022 04/20/2023 1 1 * Outpatient Procedure (Routine) - Pending Review Specialty Diagnoses / Procedures [facility] To [facility] Diagnoses IPF (idiopathic pulmonary fibrosis) ([facility]) Procedures SPIROMETRY WITH DILATOR IF OBSTRUCTED BRNCDILAT RSPSE SPMTRY PRE&POST-BRNCDILAT ADMN Nancy Galan MD [address] [place] [address] Res[facility] [place] [address] [place] [address] Referral ID Status Reason Start Date Expiration Date Visits Requested Visits Authorized [id number] Pending Review Auto-Generat ed Referral 09/21/2022 04/20/2023 1 1 * Outpatient Procedure (Routine) - Pending Review Specialty Diagnoses / Procedures Referred By Contac t Referred To Contact [facility] Diagnoses IPF (idiopathic pulmonary fibrosis) (HCC) Procedures LUNG DIFFUSION CAPACITY (DLCO) DIFFUSING CAPACITY Nancy Galan MD [address] [facility] [address] Res[facility] [place] [address] [facility] [place] [address] Referral ID Status Reason Start Date Expiration Date Visits Requested Visits Authorized [id number] Pending Review Auto-Generat ed Referral 09/21/2022 04/20/2023 1 1 [facility] for referral (narrative)* Diagnostic Procedure Only (Routine) - Closed Specialty Diagnoses / Procedures Referred By Contac t Referred To Contact XR IMAGING Diagnoses Fall, initial encounter Procedures XR THORACIC GENERAL 3V AP/LAT/SWIMMERS RADEX SPINE THORACIC 3 VIEWS Natalia Gaffney MD [address] [place] [address] Xr Imaging Referral ID Status Reason Start Date Expiration Date V isits Requested Visits Authorized [id number] Closed Auto-Generate d Referral 05/14/2022 06/13/2023 1 1 * Diagnostic Procedure Only (Routine) - Closed Specialty Diagnoses / Procedures Referred By Contac t Referred To Contact XR IMAGING Diagnoses Fall, initial encounter Procedures XR LUMBAR GENERAL 3V AP/LAT/L5-S1 RADEX SPINE LUMBOSACRAL 2/3 VIEWS Natalia Gaffney MD [address] [place] [address] Xr Imaging Referral ID Status Reason Start Date Expiration Date V isits Requested Visits Authorized [id number] Closed Auto-Generate d Referral 05/14/2022 06/13/2023 1 1 [facility] for referral (narrative)* Diagnostic Procedure Only (Routine) - Closed Specialty Diagnoses / Procedures Referred By Contac t Referred To Contact XR IMAGING Diagnoses Fall, initial encounter Procedures XR THORACIC GENERAL 3V AP/LAT/SWIMMERS RADEX SPINE THORACIC 3 VIEWS Natalia Gaffney MD [address] [place] [address] Xr Imaging Referral ID Status Reason Start Date Expiration Date V isits Requested Visits Authorized [id number] Closed Auto-Generate d Referral 05/14/2022 06/13/2023 1 1 * Diagnostic Procedure Only (Routine) - Closed Specialty Diagnoses / Procedures Referred By Contac t Referred To Contact XR IMAGING Diagnoses Fall, initial encounter Procedures XR LUMBAR GENERAL 3V AP/LAT/L5-S1 RADEX SPINE LUMBOSACRAL 2/3 VIEWS Natalia Gaffney MD [address] [place] [address] Xr Imaging Referral ID Status Reason Start Date Expiration Date V isits Requested Visits Authorized [id number] Closed Auto-Generate d Referral 05/14/2022 06/13/2023 1 1 [facility] for referral (narrative)* Diagnostic Procedure Only (Routine) - Authorized Specialty Diagnoses / Procedures Referred By Contac t Referred To Contact US IMAGING Diagnoses Mass of left lower extremity Procedures US EXTREMITY MASS/FLUID COLLECTION Neeta Powell APRN.HEAD OF ETHICS AND COMPLIANCE [address] [place] [address] Us Imaging Referral ID Status Reason Start Date Expiration Date Visits Requested Visits Authorized [id number] Authorized Auto-Generat ed Referral 10/14/2022 11/13/2023 1 1 [facility] for referral (narrative)* Diagnostic Procedure Only (Routine) - Authorized Specialty Diagnoses / Procedures Referred By Contac t Referred To Contact US IMAGING Diagnoses Elevated alkaline phosphatase level Elevated serum GGT level Procedures US ABD RIGHT UPPER QUADRANT US ABDOMINAL REAL TIME W/IMAGE LIMITED Neeta Bowman APRN.HEAD OF ETHICS AND COMPLIANCE [address] [place] [address] Us Imaging Referral ID Status Reason Start Date Expiration Date Visits Requested Visits Authorized [id number] Authorized Auto-Generat ed Referral 02/04/2023 03/05/2024 1 1 [facility] for referral (narrative)* Outpatient Procedure (Routine) - Pending Review Specialty Diagnoses / Procedures Referred By Contac t Referred To [facility] Diagnoses Chest pain, unspecified type Shortness of breath Other fatigue Procedures ECG COMPLETE ECG ROUTINE ECG W/LEAST 12 LDS W/I&R Neeta Bowman APRN.HEAD OF ETHICS AND COMPLIANCE [address] [place] [address] [facility] [place] [id number] [place] [id number] Referral ID Status Reason Start Date Expiration Date Visits Requested Visits Authorized [id number] Pending Review Auto-Generat ed Referral 09/12/2023 09/11/2024 1 1 [facility] for visit Narrative* Diagnostic Procedure Only (Routine) - Closed Specialty Diagnoses / Procedures Referred By Contac t Referred To Contact XR IMAGING Diagnoses ILD (interstitial lung disease) (HCC) Rash Dysphagia, unspecified type Procedures XR ESOPHAGRAM RADIOLOGIC EXAM ESOPHAGUS SINGLE CONTRAST STUDY Natalia Gaffney MD [address] [facility] [address] [place] [address] Xr Imaging Referral ID Status Reason Start Date Expiration Date V isits Requested Visits Authorized [id number] Closed Auto-Generate d Referral 01/17/2022 02/16/2023 1 1 [facility] Summary Purpose Family History No Family History Records FoundNo Family History Records FoundNo Family History Records FoundNo Family History Records FoundNo Family History Records FoundNo Family History Records FoundNo Family History Records Found Advance Directives No Advanced Directives Records FoundDocuments on File Type Date Recorded 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 Advance Directive(s) 05/18/2020 9:18 AM Advance Directive(s) 04/28/2020 7:33 AM Advance Directive(s) 11/17/2019 1:52 PM Advance Directive(s) 12/05/2016 11:06 AM Documents on File Type Date Recorded 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 Advance Directive(s) 05/18/2020 9:18 AM Advance Directive(s) 04/28/2020 7:33 AM Advance Directive(s) 11/17/2019 1:52 PM Advance Directive(s) 12/05/2016 11:06 AM Documents on File Type Date Recorded 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 Advance Directive(s) 11/17/2019 1:52 PM Advance Directive(s) 12/05/2016 11:06 AM Documents on File Type Date Recorded 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 Advance Directive(s) 11/17/2019 1:52 PM Advance Directive(s) 12/05/2016 11:06 AM Reason for Referral Specialty Diagnoses / Procedures Referred By Contac t Referred To Contact CT IMAGING Diagnoses Shortness of breath Restrictive lung disease Abnormal PFT Procedures CT CHEST WO IVCON DIAGNOSTIC COMPUTED TOMOGRAPHY THORAX W/O CNTRST Macey Lee MD [address] [place] [address] Ct Imaging Referral ID Status Reason Start Date Expiration Date V isits Requested Visits Authorized [id number] Closed Auto-Generate d Referral 11/22/2021 12/22/2022 1 1 Specialty Diagnoses / Procedures Referred By Contac t Referred To Contact Diagnoses Interstitial lung disease (HCC) [place] lung IPF (idiopathic pulmonary fibrosis) (HCC) Nancy Galan MD [address] [facility] [place] [address] Referral ID Status Reason Start Date Expiration Date V isits Requested Visits Authorized [id number] Pending Review 1 1 Specialty Diagnoses / Procedures Referred By Contac t Referred To Contact [facility] Diagnoses Interstitial lung disease (HCC) Honeycomb lung IPF (idiopathic pulmonary fibrosis) (HCC) Procedures SIX MINUTE WALK CARDIOPULMONARY EXERCISE STRESS Nancy Galan MD [address] [facility] [address] Respiratory [facility] [place] [address] Referral ID Status Reason Start Date Expiration Date Visits Requested Visits Authorized [id number] Authorized Auto-Generat ed Referral 12/17/2021 01/16/2023 1 1 Specialty Diagnoses / Procedures Referred By Contac t Referred To Contact Rheumatology Diagnoses ILD (interstitial lung disease) (HCC) Procedures CONSULT TO RHEUM/IMMUN DISEASE OFFICE/OUTPATIENT [facility] 60-74 MINUTES Nancy Galan MD [address] [place] [address] Referral ID Status Reason Start Date Expiration Date Visits Requested Visits Authorized [id number] Authorized PCP Requested Referral 01/03/2022 01/03/2023 1 1 Specialty Diagnoses / Procedures Referred By Contac t Referred To Contact CT IMAGING Diagnoses ILD (interstitial lung disease) (HCC) Rash Dysphagia, unspecified type Procedures CT ABD/PEL W IVCON CT ABD & PELVIS W/CONTRAST Natalia Gaffney MD [address] [place] [address] Ct Imaging Referral ID Status Reason Start Date Expiration Date Visits Requested Visits Authorized [id number] Pending Review Auto-Generat ed Referral 03/05/2022 04/04/2023 1 1 Referral ID Status Reason Start Date Expiration Date V isits Requested Visits Authorized [id number] Closed Auto-Generate d Referral 03/05/2022 04/04/2023 1 1 Specialty Diagnoses / Procedures Referred By Contac t Referred To Contact Diagnoses Elevated alkaline phosphatase level Procedures CONSULT TO HEPATOLOGY OFFICE/OUTPATIENT [facility] 60-74 MINUTES Natalia Gaffney MD [address] [facility] [place] [address] Referral ID Status Reason Start Date Expiration Date Visits Requested Visits Authorized [id number] Authorized PCP Requested Referral 03/08/2022 03/08/2023 1 1 Specialty Diagnoses / Procedures Referred By Contac t Referred To Contact CT IMAGING Diagnoses IPF (idiopathic pulmonary fibrosis) (HCC) Interstitial pulmonary disease (HCC) Procedures CT CHEST WO IVCON DIAGNOSTIC COMPUTED TOMOGRAPHY THORAX W/O CNTRST Nancy Galan MD [address] [facility] [address] Ct Imaging Referral ID Status Reason Start Date Expiration Date Visits Requested Visits Authorized [id number] Pending Review Auto-Generat ed Referral 11/24/2022 09/25/2023 1 1 Specialty Diagnoses / Procedures Referred By Contac t Referred To Contact [facility] Diagnoses IPF (idiopathic pulmonary fibrosis) ([facility]) Procedures SIX MINUTE WALK CARDI[place]ULMONARY [place] [address] [place] [address] [address] Referral ID Status Reason Start Date Expiration Date Visits Requested Visits Authorized [id number] Pending Review Auto-Generat ed Referral 11/24/2022 09/25/2023 1 1 Specialty Diagnoses / Procedures Referred By Contac t Referred To Contact [facility] Diagnoses IPF (idiopathic pulmonary fibrosis) (HCC) Procedures SPIROMETRY WITH DILATOR IF OBSTRUCTED BRNCDILAT RSPSE SPMTRY PRE&[place] [address] [place] [address] [address] Referral ID Status Reason Start Date Expiration Date Visits Requested Visits Authorized [id number] Pending Review Auto-Generat ed Referral 11/24/2022 09/25/2023 1 1 Specialty Diagnoses / Procedures Referred By Contac t Referred To Contact [facility] Diagnoses IPF (idiopathic pulmonary fibrosis) (HCC) Procedures LUNG DIFFUSION CAPACITY (DLCO) DIFFUSING CAPACITY Nancy Galan MD [address] [place] [address] [address] Referral ID Status Reason Start Date Expiration Date Visits Requested Visits Authorized [id number] Pending Review Auto-Generat ed Referral 11/24/2022 09/25/2023 1 1 Specialty Diagnoses / Procedures Referred By Contac t Referred To Contact Pulmonary and Critical Care Medicine Diagnoses Pulmonary fibrosis (HCC) Procedures CONSULT TO PULM/CRITICAL CARE OFFICE/OUTPATIENT [facility] 60-74 MINUTES Macey Lee MD [address] [place] [address] Referral ID Status Reason Start Date Expiration Date Visits Requested Visits Authorized [id number] Pending Review PCP Requested Referral 11/22/2022 11/22/2023 1 1 Specialty Diagnoses / Procedures Referred By Contac t Referred To Contact Pulmonary and Critical Care Medicine Diagnoses Interstitial lung disease (HCC) Honeycomb lung Procedures CONSULT TO PULM/CRITICAL CARE OFFICE/OUTPATIENT [facility] 60-74 MINUTES Macey Lee MD [address] [place] [address] Referral ID Status Reason Start Date Expiration Date V isits Requested Visits Authorized [id number] Closed PCP Requested Referral 12/04/2021 12/04/2022 1 1 Specialty Diagnoses / Procedures Referred By Contac t Referred To Contact CT IMAGING Diagnoses Interstitial pulmonary disease (HCC) Procedures CT CHEST WO IVCON DIAGNOSTIC COMPUTED TOMOGRAPHY THORAX W/O CNTRST Nancy Galan MD [address] [place] [id number] Imaging Referral ID Status Reason Start Date Expiration Date Visits Requested Visits Authorized [id number] Authorized Auto-Generat ed Referral 01/24/2023 02/23/2024 1 1 Specialty Diagnoses / Procedures Referred By Contac t Referred To Contact CT IMAGING Diagnoses Gross hematuria Procedures CT UROGRAM WO/W IVCON CT ABD & PELVIS W/O CONTRST 1+ BODY Robert Monsivais PA-C [address] [facility] [place] [id number] Imaging [place] [address] Referral ID Status Reason Start Date Expiration Date Visits Requested Visits Authorized [id number] Authorized Auto-Generat ed Referral 04/29/2023 05/28/2024 1 1 Specialty Diagnoses / Procedures Referred By Contac t Referred To Contact Gastroenterology Diagnoses Elevated alkaline phosphatase level Elevated serum GGT level Procedures CONSULT TO GASTROENTEROLOGY OFFICE/OUTPATIENT [facility] 60-74 MINUTES Merced Mckeon PA-C [address] [place] [address] Referral ID Status Reason Start Date Expiration Date Visits Requested Visits Authorized [id number] Pending Review PCP Requested Referral 05/19/2024 1 [...] content) DATE CREATED AUTHOR AUTHOR'S ORGANIZ ATION 10/10/2020 [facility] DATE CREATED AUTHOR AUTHOR'S ORGANIZ ATION 04/15/2021 [facility] DATE CREATED AUTHOR AUTHOR'S ORGANIZ ATION 02/28/2022 [facility] DATE CREATED AUTHOR AUTHOR'S ORGANIZ ATION 09/04/2023 [facility] DATE CREATED AUTHOR AUTHOR'S ORGANIZ ATION 09/11/2023 [facility] DATE CREATED AUTHOR AUTHOR'S ORGANIZ ATION 09/13/2023 [facility] Source Comments (unrecognize d section and content) In the event this informatio n is protected by the Federal Confidentiality of Alcohol and Drug Abuse Patient Records regulations: The Federal rules restrict any use of the information to criminally investigate or prosecute any alcohol or drug abuse patient.[facility] the event this information is protected by the Federal Confidentiality of Alcohol and Drug Abuse Patient Records regulations: The Federal rules restrict any use of the information to criminally investigate or prosecute any alcohol or drug abuse patient.[facility] HospitalIn the event this information is protected by the Federal Confidentiality of Alcohol and Drug Abuse Patient Records regulations: The Federal rules restrict any use of the information to criminally investigate or prosecute any alcohol or drug abuse patient.[facility] the event this information is protected by the Federal Confidentiality of Alcohol and Drug Abuse Patient Records regulations: The Federal rules restrict any use of the information to criminally investigate or prosecute any alcohol or drug abuse patient.[facility] HospitalIn the event this information is protected by the Federal Confidentiality of Alcohol and Drug Abuse Patient Records regulations: The Federal rules restrict any use of the information to criminally investigate or prosecute any alcohol or drug abuse patient.[facility] HospitalIn the event this information is protected by the Federal Confidentiality of Alcohol and Drug Abuse Patient Records regulations: The Federal rules restrict any use of the information to criminally investigate or prosecute any alcohol or drug abuse patient.[facility] HospitalIn the event this information is protected by the Federal Confidentiality of Alcohol and Drug Abuse Patient Records regulations: The Federal rules restrict any use of the information to criminally investigate or prosecute any alcohol or drug abuse patient.[facility] HospitalIn the event this information is protected by the Federal Confidentiality of Alcohol and Drug Abuse Patient Records regulations: The Federal rules restrict any use of the information to criminally investigate or prosecute any alcohol or drug abuse patient.[facility] HospitalIn the event this information is protected by the Federal Confidentiality of Alcohol and Drug Abuse Patient Records regulations: The Federal rules restrict any use of the information to criminally investigate or prosecute any alcohol or drug abuse patient.[facility] HospitalIn the event this information is protected by the Federal Confidentiality of Alcohol and Drug Abuse Patient Records regulations: The Federal rules restrict any use of the information to criminally investigate or prosecute any alcohol or drug abuse patient.[facility] HospitalIn the event this information is protected by the Federal Confidentiality of Alcohol and Drug Abuse Patient Records regulations: The Federal rules restrict any use of the information to criminally investigate or prosecute any alcohol or drug abuse patient.[facility] HospitalIn the event this information is protected by the Federal Confidentiality of Alcohol and Drug Abuse Patient Records regulations: The Federal rules restrict any use of the information to criminally investigate or prosecute any alcohol or drug abuse patient.[facility] HospitalIn the event this information is protected by the Federal Confidentiality of Alcohol and Drug Abuse Patient Records regulations: The Federal rules restrict any use of the information to criminally investigate or prosecute any alcohol or drug abuse patient.[facility] HospitalIn the event this information is protected by the Federal Confidentiality of Alcohol and Drug Abuse Patient Records regulations: The Federal rules restrict any use of the information to criminally investigate or prosecute any alcohol or drug abuse patient.[facility] HospitalIn the event this information is protected by the Federal Confidentiality of Alcohol and Drug Abuse Patient Records regulations: The Federal rules restrict any use of the information to criminally investigate or prosecute any alcohol or drug abuse patient.[facility] HospitalIn the event this information is protected by the Federal Confidentiality of Alcohol and Drug Abuse Patient Records regulations: The Federal rules restrict any use of the information to criminally investigate or prosecute any alcohol or drug abuse patient.[facility] HospitalIn the event this information is protected by the Federal Confidentiality of Alcohol and Drug Abuse Patient Records regulations: The Federal rules restrict any use of the information to criminally investigate or prosecute any alcohol or drug abuse patient.[facility] HospitalIn the event this information is protected by the Federal Confidentiality of Alcohol and Drug Abuse Patient Records regulations: The Federal rules restrict any use of the information to criminally investigate or prosecute any alcohol or drug abuse patient.[facility] HospitalIn the event this information is protected by the Federal Confidentiality of Alcohol and Drug Abuse Patient Records regulations: The Federal rules restrict any use of the information to criminally investigate or prosecute any alcohol or drug abuse patient.[facility] HospitalIn the event this information is protected by the Federal Confidentiality of Alcohol and Drug Abuse Patient Records regulations: The Federal rules restrict any use of the information to criminally investigate or prosecute any alcohol or drug abuse patient.[facility] HospitalIn the event this information is protected by the Federal Confidentiality of Alcohol and Drug Abuse Patient Records regulations: The Federal rules restrict any use of the information to criminally investigate or prosecute any alcohol or drug abuse patient.[facility] HospitalIn the event this information is protected by the Federal Confidentiality of Alcohol and Drug Abuse Patient Records regulations: The Federal rules restrict any use of the information to criminally investigate or prosecute any alcohol or drug abuse patient.[facility] HospitalIn the event this information is protected by the Federal Confidentiality of Alcohol and Drug Abuse Patient Records regulations: The Federal rules restrict any use of the information to criminally investigate or prosecute any alcohol or drug abuse patient.[facility] HospitalIn the event this information is protected by the Federal Confidentiality of Alcohol and Drug Abuse Patient Records regulations: The Federal rules restrict any use of the information to criminally investigate or prosecute any alcohol or drug abuse patient.[facility] HospitalIn the event this information is protected by the Federal Confidentiality of Alcohol and Drug Abuse Patient Records regulations: The Federal rules restrict any use of the information to criminally investigate or prosecute any alcohol or drug abuse patient.[facility] HospitalIn the event this information is protected by the Federal Confidentiality of Alcohol and Drug Abuse Patient Records regulations: The Federal rules restrict any use of the information to criminally investigate or prosecute any alcohol or drug abuse patient.[facility] HospitalIn the event this information is protected by the Federal Confidentiality of Alcohol and Drug Abuse Patient Records regulations: The Federal rules restrict any use of the information to criminally investigate or prosecute any alcohol or drug abuse patient.[facility] HospitalIn the event this information is protected by the Federal Confidentiality of Alcohol and Drug Abuse Patient Records regulations: The Federal rules restrict any use of the information to criminally investigate or prosecute any alcohol or drug abuse patient.[facility] HospitalIn the event this information is protected by the Federal Confidentiality of Alcohol and Drug Abuse Patient Records regulations: The Federal rules restrict any use of the information to criminally investigate or prosecute any alcohol or drug abuse patient.[facility] HospitalIn the event this information is protected by the Federal Confidentiality of Alcohol and Drug Abuse Patient Records regulations: The Federal rules restrict any use of the information to criminally investigate or prosecute any alcohol or drug abuse patient.[facility] HospitalIn the event this information is protected by the Federal Confidentiality of Alcohol and Drug Abuse Patient Records regulations: The Federal rules restrict any use of the information to criminally investigate or prosecute any alcohol or drug abuse patient.[facility] HospitalIn the event this information is protected by the Federal Confidentiality of Alcohol and Drug Abuse Patient Records regulations: The Federal rules restrict any use of the information to criminally investigate or prosecute any alcohol or drug abuse patient.[facility] HospitalIn the event this information is protected by the Federal Confidentiality of Alcohol and Drug Abuse Patient Records regulations: The Federal rules restrict any use of the information to criminally investigate or prosecute any alcohol or drug abuse patient.[facility] HospitalIn the event this information is protected by the Federal Confidentiality of Alcohol and Drug Abuse Patient Records regulations: The Federal rules restrict any use of the information to criminally investigate or prosecute any alcohol or drug abuse patient.[facility] HospitalIn the event this information is protected by the Federal Confidentiality of Alcohol and Drug Abuse Patient Records regulations: The Federal rules restrict any use of the information to criminally investigate or prosecute any alcohol or drug abuse patient.[facility] HospitalIn the event this information is protected by the Federal Confidentiality of Alcohol and Drug Abuse Patient Records regulations: The Federal rules restrict any use of the information to criminally investigate or prosecute any alcohol or drug abuse patient.[facility] HospitalIn the event this information is protected by the Federal Confidentiality of Alcohol and Drug Abuse Patient Records regulations: The Federal rules restrict any use of the information to criminally investigate or prosecute any alcohol or drug abuse patient.[facility] HospitalIn the event this information is protected by the Federal Confidentiality of Alcohol and Drug Abuse Patient Records regulations: The Federal rules restrict any use of the information to criminally investigate or prosecute any alcohol or drug abuse patient.[facility] HospitalIn the event this information is protected by the Federal Confidentiality of Alcohol and Drug Abuse Patient Records regulations: The Federal rules restrict any use of the information to criminally investigate or prosecute any alcohol or drug abuse patient.[facility] HospitalIn the event this information is protected by the Federal Confidentiality of Alcohol and Drug Abuse Patient Records regulations: The Federal rules restrict any use of the information to criminally investigate or prosecute any alcohol or drug abuse patient.[facility] HospitalIn the event this information is protected by the Federal Confidentiality of Alcohol and Drug Abuse Patient Records regulations: The Federal rules restrict any use of the information to criminally investigate or prosecute any alcohol or drug abuse patient.[facility] HospitalIn the event this information is protected by the Federal Confidentiality of Alcohol and Drug Abuse Patient Records regulations: The Federal rules restrict any use of the information to criminally investigate or prosecute any alcohol or drug abuse patient.[facility] HospitalIn the event this information is protected by the Federal Confidentiality of Alcohol and Drug Abuse Patient Records regulations: The Federal rules restrict any use of the information to criminally investigate or prosecute any alcohol or drug abuse patient.[facility] HospitalIn the event this information is protected by the Federal Confidentiality of Alcohol and Drug Abuse Patient Records regulations: The Federal rules restrict any use of the information to criminally investigate or prosecute any alcohol or drug abuse patient.[facility] HospitalIn the event this information is protected by the Federal Confidentiality of Alcohol and Drug Abuse Patient Records regulations: The Federal rules restrict any use of the information to criminally investigate or prosecute any alcohol or drug abuse patient.[facility] HospitalIn the event this information is protected by the Federal Confidentiality of Alcohol and Drug Abuse Patient Records regulations: The Federal rules restrict any use of the information to criminally investigate or prosecute any alcohol or drug abuse patient.[facility] HospitalIn the event this information is protected by the Federal Confidentiality of Alcohol and Drug Abuse Patient Records regulations: The Federal rules restrict any use of the information to criminally investigate or prosecute any alcohol or drug abuse patient.[facility] HospitalIn the event this information is protected by the Federal Confidentiality of Alcohol and Drug Abuse Patient Records regulations: The Federal rules restrict any use of the information to criminally investigate or prosecute any alcohol or drug abuse patient.[facility] HospitalIn the event this information is protected by the Federal Confidentiality of Alcohol and Drug Abuse Patient Records regulations: The Federal rules restrict any use of the information to criminally investigate or prosecute any alcohol or drug abuse patient.[facility] HospitalIn the event this information is protected by the Federal Confidentiality of Alcohol and Drug Abuse Patient Records regulations: The Federal rules restrict any use of the information to criminally investigate or prosecute any alcohol or drug abuse patient.[facility] HospitalIn the event this information is protected by the Federal Confidentiality of Alcohol and Drug Abuse Patient Records regulations: The Federal rules restrict any use of the information to criminally investigate or prosecute any alcohol or drug abuse patient.[facility] HospitalIn the event this information is protected by the Federal Confidentiality of Alcohol and Drug Abuse Patient Records regulations: The Federal rules restrict any use of the information to criminally investigate or prosecute any alcohol or drug abuse patient.[facility] HospitalIn the event this information is protected by the Federal Confidentiality of Alcohol and Drug Abuse Patient Records regulations: The Federal rules restrict any use of the information to criminally investigate or prosecute any alcohol or drug abuse patient.[facility] the event this information is protected by the Federal Confidentiality of Alcohol and Drug Abuse Patient Records regulations: The Federal rules restrict any use of the information to criminally investigate or prosecute any alcohol or drug abuse patient.[facility] HospitalIn the event this information is protected by the Federal Confidentiality of Alcohol and Drug Abuse Patient Records regulations: The Federal rules restrict any use of the information to criminally investigate or prosecute any alcohol or drug abuse patient.[facility] HospitalIn the event this information is protected by the Federal Confidentiality of Alcohol and Drug Abuse Patient Records regulations: The Federal rules restrict any use of the information to criminally investigate or prosecute any alcohol or drug abuse patient.[facility] HospitalIn the event this information is protected by the Federal Confidentiality of Alcohol and Drug Abuse Patient Records regulations: The Federal rules restrict any use of the information to criminally investigate or prosecute any alcohol or drug abuse patient.[facility] HospitalIn the event this information is protected by the Federal Confidentiality of Alcohol and Drug Abuse Patient Records regulations: The Federal rules restrict any use of the information to criminally investigate or prosecute any alcohol or drug abuse patient.[facility] HospitalIn the event this information is protected by the Federal Confidentiality of Alcohol and Drug Abuse Patient Records regulations: The Federal rules restrict any use of the information to criminally investigate or prosecute any alcohol or drug abuse patient.[facility] HospitalIn the event this information is protected by the Federal Confidentiality of Alcohol and Drug Abuse Patient Records regulations: The Federal rules restrict any use of the information to criminally investigate or prosecute any alcohol or drug abuse patient.[facility] HospitalIn the event this information is protected by the Federal Confidentiality of Alcohol and Drug Abuse Patient Records regulations: The Federal rules restrict any use of the information to criminally investigate or prosecute any alcohol or drug abuse patient.[facility] HospitalIn the event this information is protected by the Federal Confidentiality of Alcohol and Drug Abuse Patient Records regulations: The Federal rules restrict any use of the information to criminally investigate or prosecute any alcohol or drug abuse patient.[facility] HospitalIn the event this information is protected by the Federal Confidentiality of Alcohol and Drug Abuse Patient Records regulations: The Federal rules restrict any use of the information to criminally investigate or prosecute any alcohol or drug abuse patient.[facility] HospitalIn the event this information is protected by the Federal Confidentiality of Alcohol and Drug Abuse Patient Records regulations: The Federal rules restrict any use of the information to criminally investigate or prosecute any alcohol or drug abuse patient.[facility] HospitalIn the event this information is protected by the Federal Confidentiality of Alcohol and Drug Abuse Patient Records regulations: The Federal rules restrict any use of the information to criminally investigate or prosecute any alcohol or drug abuse patient.[facility] HospitalIn the event this information is protected by the Federal Confidentiality of Alcohol and Drug Abuse Patient Records regulations: The Federal rules restrict any use of the information to criminally investigate or prosecute any alcohol or drug abuse patient.[facility] HospitalIn the event this information is protected by the Federal Confidentiality of Alcohol and Drug Abuse Patient Records regulations: The Federal rules restrict any use of the information to criminally investigate or prosecute any alcohol or drug abuse patient.[facility] HospitalIn the event this information is protected by the Federal Confidentiality of Alcohol and Drug Abuse Patient Records regulations: The Federal rules restrict any use of the information to criminally investigate or prosecute any alcohol or drug abuse patient.[facility] HospitalIn the event this information is protected by the Federal Confidentiality of Alcohol and Drug Abuse Patient Records regulations: The Federal rules restrict any use of the information to criminally investigate or prosecute any alcohol or drug abuse patient.[facility] HospitalIn the event this information is protected by the Federal Confidentiality of Alcohol and Drug Abuse Patient Records regulations: The Federal rules restrict any use of the information to criminally investigate or prosecute any alcohol or drug abuse patient.[facility] HospitalIn the event this information is protected by the Federal Confidentiality of Alcohol and Drug Abuse Patient Records regulations: The Federal rules restrict any use of the information to criminally investigate or prosecute any alcohol or drug abuse patient.[facility] HospitalIn the event this information is protected by the Federal Confidentiality of Alcohol and Drug Abuse Patient Records regulations: The Federal rules restrict any use of the information to criminally investigate or prosecute any alcohol or drug abuse patient.[facility] HospitalIn the event this information is protected by the Federal Confidentiality of Alcohol and Drug Abuse Patient Records regulations: The Federal rules restrict any use of the information to criminally investigate or prosecute any alcohol or drug abuse patient.[facility] HospitalIn the event this information is protected by the Federal Confidentiality of Alcohol and Drug Abuse Patient Records regulations: The Federal rules restrict any use of the information to criminally investigate or prosecute any alcohol or drug abuse patient.[facility] HospitalIn the event this information is protected by the Federal Confidentiality of Alcohol and Drug Abuse Patient Records regulations: The Federal rules restrict any use of the information to criminally investigate or prosecute any alcohol or drug abuse patient.[facility] HospitalIn the event this information is protected by the Federal Confidentiality of Alcohol and Drug Abuse Patient Records regulations: The Federal rules restrict any use of the information to criminally investigate or prosecute any alcohol or drug abuse patient.[facility] HospitalIn the event this information is protected by the Federal Confidentiality of Alcohol and Drug Abuse Patient Records regulations: The Federal rules restrict any use of the information to criminally investigate or prosecute any alcohol or drug abuse patient.[facility] HospitalIn the event this information is protected by the Federal Confidentiality of Alcohol and Drug Abuse Patient Records regulations: The Federal rules restrict any use of the information to criminally investigate or prosecute any alcohol or drug abuse patient.[facility] HospitalIn the event this information is protected by the Federal Confidentiality of Alcohol and Drug Abuse Patient Records regulations: The Federal rules restrict any use of the information to criminally investigate or prosecute any alcohol or drug abuse patient.[facility] HospitalIn the event this information is protected by the Federal Confidentiality of Alcohol and Drug Abuse Patient Records regulations: The Federal rules restrict any use of the information to criminally investigate or prosecute any alcohol or drug abuse patient.[facility] HospitalIn the event this information is protected by the Federal Confidentiality of Alcohol and Drug Abuse Patient Records regulations: The Federal rules restrict any use of the information to criminally investigate or prosecute any alcohol or drug abuse patient.[facility] HospitalIn the event this information is protected by the Federal Confidentiality of Alcohol and Drug Abuse Patient Records regulations: The Federal rules restrict any use of the information to criminally investigate or prosecute any alcohol or drug abuse patient.[facility] HospitalIn the event this information is protected by the Federal Confidentiality of Alcohol and Drug Abuse Patient Records regulations: The Federal rules restrict any use of the information to criminally investigate or prosecute any alcohol or drug abuse patient.[facility] HospitalIn the event this information is protected by the Federal Confidentiality of Alcohol and Drug Abuse Patient Records regulations: The Federal rules restrict any use of the information to criminally investigate or prosecute any alcohol or drug abuse patient.[facility] HospitalIn the event this information is protected by the Federal Confidentiality of Alcohol and Drug Abuse Patient Records regulations: The Federal rules restrict any use of the information to criminally investigate or prosecute any alcohol or drug abuse patient.[facility] HospitalIn the event this information is protected by the Federal Confidentiality of Alcohol and Drug Abuse Patient Records regulations: The Federal rules restrict any use of the information to criminally investigate or prosecute any alcohol or drug abuse patient.[facility] HospitalIn the event this information is protected by the Federal Confidentiality of Alcohol and Drug Abuse Patient Records regulations: The Federal rules restrict any use of the information to criminally investigate or prosecute any alcohol or drug abuse patient.[facility] HospitalIn the event this information is protected by the Federal Confidentiality of Alcohol and Drug Abuse Patient Records regulations: The Federal rules restrict any use of the information to criminally investigate or prosecute any alcohol or drug abuse patient.[facility] HospitalIn the event this information is protected by the Federal Confidentiality of Alcohol and Drug Abuse Patient Records regulations: The Federal rules restrict any use of the information to criminally investigate or prosecute any alcohol or drug abuse patient.[facility] HospitalIn the event this information is protected by the Federal Confidentiality of Alcohol and Drug Abuse Patient Records regulations: The Federal rules restrict any use of the information to criminally investigate or prosecute any alcohol or drug abuse patient.[facility] HospitalIn the event this information is protected by the Federal Confidentiality of Alcohol and Drug Abuse Patient Records regulations: The Federal rules restrict any use of the information to criminally investigate or prosecute any alcohol or drug abuse patient.[facility] HospitalIn the event this information is protected by the Federal Confidentiality of Alcohol and Drug Abuse Patient Records regulations: The Federal rules restrict any use of the information to criminally investigate or prosecute any alcohol or drug abuse patient.[facility] HospitalIn the event this information is protected by the Federal Confidentiality of Alcohol and Drug Abuse Patient Records regulations: The Federal rules restrict any use of the information to criminally investigate or prosecute any alcohol or drug abuse patient.[facility] HospitalIn the event this information is protected by the Federal Confidentiality of Alcohol and Drug Abuse Patient Records regulations: The Federal rules restrict any use of the information to criminally investigate or prosecute any alcohol or drug abuse patient.[facility] HospitalIn the event this information is protected by the Federal Confidentiality of Alcohol and Drug Abuse Patient Records regulations: The Federal rules restrict any use of the information to criminally investigate or prosecute any alcohol or drug abuse patient.[facility] HospitalIn the event this information is protected by the Federal Confidentiality of Alcohol and Drug Abuse Patient Records regulations: The Federal rules restrict any use of the information to criminally investigate or prosecute any alcohol or drug abuse patient.[facility] HospitalIn the event this information is protected by the Federal Confidentiality of Alcohol and Drug Abuse Patient Records regulations: The Federal rules restrict any use of the information to criminally investigate or prosecute any alcohol or drug abuse patient.[facility] HospitalIn the event this information is protected by the Federal Confidentiality of Alcohol and Drug Abuse Patient Records regulations: The Federal rules restrict any use of the information to criminally investigate or prosecute any alcohol or drug abuse patient.[facility] HospitalIn the event this information is protected by the Federal Confidentiality of Alcohol and Drug Abuse Patient Records regulations: The Federal rules restrict any use of the information to criminally investigate or prosecute any alcohol or drug abuse patient.[facility] HospitalIn the event this information is protected by the Federal Confidentiality of Alcohol and Drug Abuse Patient Records regulations: The Federal rules restrict any use of the information to criminally investigate or prosecute any alcohol or drug abuse patient.[facility] HospitalIn the event this information is protected by the Federal Confidentiality of Alcohol and Drug Abuse Patient Records regulations: The Federal rules restrict any use of the information to criminally investigate or prosecute any alcohol or drug abuse patient.[facility] HospitalIn the event this information is protected by the Federal Confidentiality of Alcohol and Drug Abuse Patient Records regulations: The Federal rules restrict any use of the information to criminally investigate or prosecute any alcohol or drug abuse patient.[facility] HospitalIn the event this information is protected by the Federal Confidentiality of Alcohol and Drug Abuse Patient Records regulations: The Federal rules restrict any use of the information to criminally investigate or prosecute any alcohol or drug abuse patient.[facility] the event this information is protected by the Federal Confidentiality of Alcohol and Drug Abuse Patient Records regulations: The Federal rules restrict any use of the information to criminally investigate or prosecute any alcohol or drug abuse patient.[facility] HospitalIn the event this information is protected by the Federal Confidentiality of Alcohol and Drug Abuse Patient Records regulations: The Federal rules restrict any use of the information to criminally investigate or prosecute any alcohol or drug abuse patient.[facility] HospitalIn the event this information is protected by the Federal Confidentiality of Alcohol and Drug Abuse Patient Records regulations: The Federal rules restrict any use of the information to criminally investigate or prosecute any alcohol or drug abuse patient.[facility] HospitalIn the event this information is protected by the Federal Confidentiality of Alcohol and Drug Abuse Patient Records regulations: The Federal rules restrict any use of the information to criminally investigate or prosecute any alcohol or drug abuse patient.[facility] HospitalIn the event this information is protected by the Federal Confidentiality of Alcohol and Drug Abuse Patient Records regulations: The Federal rules restrict any use of the information to criminally investigate or prosecute any alcohol or drug abuse patient.[facility] HospitalIn the event this information is protected by the Federal Confidentiality of Alcohol and Drug Abuse Patient Records regulations: The Federal rules restrict any use of the information to criminally investigate or prosecute any alcohol or drug abuse patient.[facility] HospitalIn the event this information is protected by the Federal Confidentiality of Alcohol and Drug Abuse Patient Records regulations: The Federal rules restrict any use of the information to criminally investigate or prosecute any alcohol or drug abuse patient.[facility] HospitalIn the event this information is protected by the Federal Confidentiality of Alcohol and Drug Abuse Patient Records regulations: The Federal rules restrict any use of the information to criminally investigate or prosecute any alcohol or drug abuse patient.[facility] HospitalIn the event this information is protected by the Federal Confidentiality of Alcohol and Drug Abuse Patient Records regulations: The Federal rules restrict any use of the information to criminally investigate or prosecute any alcohol or drug abuse patient.[facility] HospitalIn the event this information is protected by the Federal Confidentiality of Alcohol and Drug Abuse Patient Records regulations: The Federal rules restrict any use of the information to criminally investigate or prosecute any alcohol or drug abuse patient.[facility] HospitalIn the event this information is protected by the Federal Confidentiality of Alcohol and Drug Abuse Patient Records regulations: The Federal rules restrict any use of the information to criminally investigate or prosecute any alcohol or drug abuse patient.[facility] HospitalIn the event this information is protected by the Federal Confidentiality of Alcohol and Drug Abuse Patient Records regulations: The Federal rules restrict any use of the information to criminally investigate or prosecute any alcohol or drug abuse patient.[facility] HospitalIn the event this information is protected by the Federal Confidentiality of Alcohol and Drug Abuse Patient Records regulations: The Federal rules restrict any use of the information to criminally investigate or prosecute any alcohol or drug abuse patient.[facility] HospitalIn the event this information is protected by the Federal Confidentiality of Alcohol and Drug Abuse Patient Records regulations: The Federal rules restrict any use of the information to criminally investigate or prosecute any alcohol or drug abuse patient.[facility] HospitalIn the event this information is protected by the Federal Confidentiality of Alcohol and Drug Abuse Patient Records regulations: The Federal rules restrict any use of the information to criminally investigate or prosecute any alcohol or drug abuse patient.[facility] HospitalIn the event this information is protected by the Federal Confidentiality of Alcohol and Drug Abuse Patient Records regulations: The Federal rules restrict any use of the information to criminally investigate or prosecute any alcohol or drug abuse patient.[facility] HospitalIn the event this information is protected by the Federal Confidentiality of Alcohol and Drug Abuse Patient Records regulations: The Federal rules restrict any use of the information to criminally investigate or prosecute any alcohol or drug abuse patient.[facility] HospitalIn the event this information is protected by the Federal Confidentiality of Alcohol and Drug Abuse Patient Records regulations: The Federal rules restrict any use of the information to criminally investigate or prosecute any alcohol or drug abuse patient.[facility] HospitalIn the event this information is protected by the Federal Confidentiality of Alcohol and Drug Abuse Patient Records regulations: The Federal rules restrict any use of the information to criminally investigate or prosecute any alcohol or drug abuse patient.[facility] HospitalIn the event this information is protected by the Federal Confidentiality of Alcohol and Drug Abuse Patient Records regulations: The Federal rules restrict any use of the information to criminally investigate or prosecute any alcohol or drug abuse patient.[facility] HospitalIn the event this information is protected by the Federal Confidentiality of Alcohol and Drug Abuse Patient Records regulations: The Federal rules restrict any use of the information to criminally investigate or prosecute any alcohol or drug abuse patient.[facility] HospitalIn the event this information is protected by the Federal Confidentiality of Alcohol and Drug Abuse Patient Records regulations: The Federal rules restrict any use of the information to criminally investigate or prosecute any alcohol or drug abuse patient.[facility] HospitalIn the event this information is protected by the Federal Confidentiality of Alcohol and Drug Abuse Patient Records regulations: The Federal rules restrict any use of the information to criminally investigate or prosecute any alcohol or drug abuse patient.[facility] HospitalIn the event this information is protected by the Federal Confidentiality of Alcohol and Drug Abuse Patient Records regulations: The Federal rules restrict any use of the information to criminally investigate or prosecute any alcohol or drug abuse patient.[facility] HospitalIn the event this information is protected by the Federal Confidentiality of Alcohol and Drug Abuse Patient Records regulations: The Federal rules restrict any use of the information to criminally investigate or prosecute any alcohol or drug abuse patient.[facility] HospitalIn the event this information is protected by the Federal Confidentiality of Alcohol and Drug Abuse Patient Records regulations: The Federal rules restrict any use of the information to criminally investigate or prosecute any alcohol or drug abuse patient.[facility] HospitalIn the event this information is protected by the Federal Confidentiality of Alcohol and Drug Abuse Patient Records regulations: The Federal rules restrict any use of the information to criminally investigate or prosecute any alcohol or drug abuse patient.[facility] HospitalIn the event this information is protected by the Federal Confidentiality of Alcohol and Drug Abuse Patient Records regulations: The Federal rules restrict any use of the information to criminally investigate or prosecute any alcohol or drug abuse patient.[facility] HospitalIn the event this information is protected by the Federal Confidentiality of Alcohol and Drug Abuse Patient Records regulations: The Federal rules restrict any use of the information to criminally investigate or prosecute any alcohol or drug abuse patient.[facility] HospitalIn the event this information is protected by the Federal Confidentiality of Alcohol and Drug Abuse Patient Records regulations: The Federal rules restrict any use of the information to criminally investigate or prosecute any alcohol or drug abuse patient.[facility] HospitalIn the event this information is protected by the Federal Confidentiality of Alcohol and Drug Abuse Patient Records regulations: The Federal rules restrict any use of the information to criminally investigate or prosecute any alcohol or drug abuse patient.[facility] HospitalIn the event this information is protected by the Federal Confidentiality of Alcohol and Drug Abuse Patient Records regulations: The Federal rules restrict any use of the information to criminally investigate or prosecute any alcohol or drug abuse patient.[facility] HospitalIn the event this information is protected by the Federal Confidentiality of Alcohol and Drug Abuse Patient Records regulations: The Federal rules restrict any use of the information to criminally investigate or prosecute any alcohol or drug abuse patient.[facility] HospitalIn the event this information is protected by the Federal Confidentiality of Alcohol and Drug Abuse Patient Records regulations: The Federal rules restrict any use of the information to criminally investigate or prosecute any alcohol or drug abuse patient.[facility] HospitalIn the event this information is protected by the Federal Confidentiality of Alcohol and Drug Abuse Patient Records regulations: The Federal rules restrict any use of the information to criminally investigate or prosecute any alcohol or drug abuse patient.[facility] HospitalIn the event this information is protected by the Federal Confidentiality of Alcohol and Drug Abuse Patient Records regulations: The Federal rules restrict any use of the information to criminally investigate or prosecute any alcohol or drug abuse patient.[facility] HospitalIn the event this information is protected by the Federal Confidentiality of Alcohol and Drug Abuse Patient Records regulations: The Federal rules restrict any use of the information to criminally investigate or prosecute any alcohol or drug abuse patient.[facility] HospitalIn the event this information is protected by the Federal Confidentiality of Alcohol and Drug Abuse Patient Records regulations: The Federal rules restrict any use of the information to criminally investigate or prosecute any alcohol or drug abuse patient.[facility] HospitalIn the event this information is protected by the Federal Confidentiality of Alcohol and Drug Abuse Patient Records regulations: The Federal rules restrict any use of the information to criminally investigate or prosecute any alcohol or drug abuse patient.[facility] Reason for Visit (unrecogniz ed section and content) Specialty Diagnoses / Procedures Referred By Contac t Referred To Contact Pulmonary and Critical Care Medicine Diagnoses Interstitial lung disease (HCC) Honeycomb lung Procedures CONSULT TO PULM/CRITICAL CARE OFFICE/OUTPATIENT NEW HIGH MDM 60-74 MINUTES Macey Lee MD [address] [place] [address] Referral ID Status Reason Start Date Expiration Date V isits Requested Visits Authorized [id number] Closed PCP Requested Referral 12/04/2021 12/04/2022 1 1 Reason Comments Medication Question Reason Onset Date Comments Insight Escalation 11/18/2021 Insight CDM Q uestionnaire triggered escalation Reason Comments Spirometry Specialty Diagnoses / Procedures Referred By Contac t Referred To Contact [facility] Diagnoses SOB (shortness of breath) Procedures LUNG VOLUMES Macey Lee MD [address] [place] [address] [facility] [place] [address] [place] [address] Referral ID Status Reason Start Date Expiration Date V isits Requested Visits Authorized [id number] Closed Auto-Generate d Referral 10/29/2021 11/28/2022 1 1 Specialty Diagnoses / Procedures Referred By Contac t Referred To Contact [facility] Diagnoses SOB (shortness of breath) Procedures LUNG DIFFUSION CAPACITY (DLCO) DIFFUSING CAPACITY Macey Lee MD [address] [place] [address] [facility] [place] [address] [place] [address] Referral ID Status Reason Start Date Expiration Date V isits Requested Visits Authorized [id number] Closed Auto-Generate d Referral 10/29/2021 11/28/2022 1 [...] WO IVCON DIAGNOSTIC COMPUTED TOMOGRAPHY THORAX W/O MENAT aMcey Lee MD [address] [place] [address] Ct Imaging Referral ID Status Reason Start Date Expiration Date V isits Requested Visits Authorized [id number] Closed Auto-Generate d Referral 11/22/2021 12/22/2022 1 [...] & PELVIS W/CONTRAST Natalia Gaffney MD [address] [facility] [address] [place] [address] Ct Imaging Referral ID Status Reason Start Date Expiration Date V isits Requested Visits Authorized [id number] Closed Auto-Generate d Referral 03/05/2022 04/04/2023 1 1 Reason Comments Rash Specialty Diagnoses / Procedures [facility] Dermatology Diagnoses ILD (interstitial lung disease) (HCC) Rash Dysphagia, unspecified type Procedures CONSULT TO DERMATOLOGY OFFICE/OUTPATIENT [facility] 60-74 MINUTES Natalia Gaffney MD [address] [address] Referral ID Status Reason Start Date Expiration Date V isits Requested Visits Authorized [id number] Closed PCP Requested Referral 01/17/2022 01/17/2023 1 1 Reason Onset Date Comments No Show 03/12/2021 INR result expec jackson Reason Onset Date Comments Refill Request 03/08/2022 Reason Onset Date Comments Anticoagulation Telephone Fu 03/11/2022 Nhan e INR Result Reason Onset Date Comments Refill Request 03/15/2022 Specialty Diagnoses / Procedures Referred By Emmaac t Referred To Contact [facility] Diagnoses Interstitial lung disease (HCC) Honeycomb lung IPF (idiopathic pulmonary fibrosis) (HCC) Procedures SIX MINUTE WALK CARDIOPULMONARY EXERCISE STRESS Nancy Galan MD [address] [facility] [place] [address] Respiratory [place] [facility] [place] [address] Referral ID Status Reason Start Date Expiration Date V isits Requested Visits Authorized [id number] Closed Auto-Generate d Referral 12/17/2021 01/16/2023 1 [...] phosphatase level Procedures CONSULT TO HEPATOLOGY OFFICE/OUTPATIENT [facility] 60-74 MINUTES Natalia Gaffney MD [address] [address] Referral ID Status Reason Start Date Expiration Date V isits Requested Visits Authorized [id number] Closed PCP Requested Referral 03/08/2022 03/08/2023 1 1 Reason Onset Date Comments Refill Request 04/19/2022 Reason Onset Date Comments Anticoagulation Telephone Fu 04/22/2022 Nhan e INR Result Reason Comments MEDICATION DISCHARGE NOTICE ESBRIET / Or rikki Reason Comments Recheck 6 month Reason Comments Radio Gen A21 Specialty Diagnoses / Procedures Referred By Malick t Referred To Contact XR IMAGING Diagnoses Fall, initial encounter Procedures XR THORACIC GENERAL 3V AP/LAT/SWIMMERS RADEX SPINE THORACIC 3 VIEWS Natalia Gaffney [facility] [address] [facility] [address] [address] Xr Imaging Referral ID Status Reason Start Date Expiration Date V isits Requested Visits Authorized [id number] Closed Auto-Generate d Referral 05/14/2022 06/13/2023 1 [...] CT Specialty Diagnoses / Procedures Referred By Contang t Referred To Contact CT IMAGING Diagnoses Examination of participant in clinical trial Procedures CT CHEST WO IVCON DIAGNOSTIC COMPUTED TOMOGRAPHY THORAX W/O CNTRST Geovanny Ray MD [address] [place] [address] Ct Imaging Referral ID Status Reason Start Date Expiration Date V isits Requested Visits Authorized [id number] Closed Auto-Generate d Referral 10/01/2022 10/31/2023 1 [...] Comments Results Reason Comments Anticoagulation Telephone Fu Feed Crusher - Other INR result Reason Comments Anticoagulation Telephone Fu Home INR Specialty Diagnoses / Procedures Referred By Contac t Referred To [facility] [place] Diagnoses Pulmonary fibrosis (HCC) Procedures SPIROMETRY WITH DILATOR IF OBSTRUCTED BRNCDILAT RSPSE SPMTRY PRE&[place] [address] [place], [place] [id number] [place] [address] Referral ID Status Reason Start Date Expiration Date V isits Requested Visits Authorized [id number] Closed Auto-Generate d Referral 03/03/2023 04/01/2024 1 1 Specialty Diagnoses / Procedures Referred By Contac t Referred To [facility] [place] Diagnoses Pulmonary fibrosis (HCC) Procedures SIX MINUTE WALK CARDIOPULMONARY EXERCISE STRESS Nancy Galan MD [address] [facility] [place] [address] [address] Referral ID Status Reason Start Date Expiration Date V isits Requested Visits Authorized [id number] Closed Auto-Generate d Referral 03/03/2023 04/01/2024 1 1 Specialty Diagnoses / Procedures Referred By Contac t Referred To [facility] [place] Diagnoses Pulmonary fibrosis (HCC) Procedures LUNG DIFFUSION CAPACITY (DLCO) DIFFUSING CAPACITY Nancy Galan MD [address] [place] [address] Respiratory [place] [address] [place] [address] Referral ID Status Reason Start Date Expiration Date V isits Requested Visits Authorized [id number] Closed Auto-Generate d Referral 03/03/2023 04/01/2024 1 [...] unspecified type Procedures CONSULT TO UROLOGY OFFICE/OUTPATIENT [facility] 60-74 MINUTES Jorge L Proctor MD [address] [place] [address] Referral ID Status Reason Start Date Expiration Date Visits Requested Visits Authorized [id number] Pending Review PCP Requested Referral 04/28/2023 04/27/2024 1 1 Reason Onset Date Comments Anticoagulation Telephone Fu 05/19/2023 Lab INR Result Reason Comments Follow Up discuss Ed and CT an d check ears Reason Onset Date Comments Refill Request 06/12/2023 Reason Onset Date Comments Refill Request 06/23/2023 Reason Comments Anticoagulation Telephone Fu Home INR Reason Comments Patient Update Reason Comments Recheck Follow up pneumonia Care Teams (unrecognized sec tion and content) Brick Layer Relationship Specialty Start Date End Date Macey Lee MD [address] [place] [address] PCP - General Internal Medicine 12/26/14 No, Referral Referring 06/16/18 13, Pharmacist [id number] [place] [address] Pharmacist Pharmacy 03/20/20 Joel Benavides, reimbursement specMedical Secretary Receptionist Internal Medicine 05/24/20 Jose Ramon Contreras MD [address] [place] [address] Specialty Celery Stripper Cardiology 06/14/20 Linus Madrid MD [address] [place] [address], [place] [address] Specialty Celery Stripper Cardiology 07/23/21 Brick Layer Relationship Specialty Start Date End Date Macey Lee MD [address] [place] [address] PCP - General Internal Medicine 12/26/14 No, Referral Referring 06/16/18 13, Pharmacist [phone] [place] [address] Pharmacist Pharmacy 03/20/20 Joel Benavides, reimbursement specMedical Secretary Receptionist Internal Medicine 05/24/20 Jose Ramon Contreras MD [address] [place] [address] Specialty Celery Stripper Cardiology 06/14/20 Linus Madrid MD [address] [place] [phone] Specialty Celery Stripper Cardiology 07/23/21 Brick Layer Relationship Specialty Start Date End Date Macey Lee MD [address] [place] [address] PCP - General Internal Medicine 12/26/14 No, Referral Referring 06/16/18 13, Pharmacist [id number] [place] [address] Pharmacist Pharmacy 03/20/20 Joel Benavides, reimbursement specMedical Secretary Receptionist Internal Medicine 05/24/20 Jose Ramon Contreras MD [address] [place] [address] Specialty Celery Stripper Cardiology 06/14/20 Linus Madrid MD [address] [place] [address] Specialty Celery Stripper Cardiology 07/23/21 Brick Layer Relationship Specialty Start Date End Date Macey Lee MD [address] [place] [address] PCP - General Internal Medicine 12/26/14 No, Referral Referring 06/16/18 13, Pharmacist [id number] [place] [address] Pharmacist Pharmacy 03/20/20 Joel Benavides, reimbursement specMedical Secretary Receptionist Internal Medicine 05/24/20 Jose Ramon Contreras MD [address] [place] [address] Specialty Celery Stripper Cardiology 06/14/20 Linus Madrid MD [address] [place] [phone] Specialty Celery Stripper Cardiology 07/23/21 Brick Layer Relationship Specialty Start Date End Date Macey Lee MD [address] [place] [address] PCP - General Internal Medicine 12/26/14 No, Referral Referring 06/16/18 13, Pharmacist [address] [place] [address] Pharmacist Pharmacy 03/20/20 Joel Benavides, reimbursement specMedical Secretary Receptionist Internal Medicine 05/24/20 Jose Ramon Contreras MD [address] [place] [address] Specialty Celery Stripper Cardiology 06/14/20 Linus Madrid MD [address] [place] [phone] Specialty Celery Stripper Cardiology 07/23/21 Brick Layer Relationship Specialty Start Date End Date Macey Lee MD [address] [place] [address] PCP - General Internal Medicine 12/26/14 No, Referral Referring 06/16/18 13, Pharmacist [id number] [place] [address] Pharmacist Pharmacy 03/20/20 Joel Benavides, reimbursement specMedical Secretary Receptionist Internal Medicine 05/24/20 Jose Ramon Contreras MD [address] [place] [address] Specialty Celery Stripper Cardiology 06/14/20 Linus Madrid MD [address] [place] [address], [place] [address] Specialty Celery Stripper Cardiology 07/23/21 Brick Layer Relationship Specialty Start Date End Date Macey Lee MD [address] [place] [address] PCP - General Internal Medicine 12/26/14 No, Referral Referring 06/16/18 13, Pharmacist [id number] [place] [address] Pharmacist Pharmacy 03/20/20 Joel Benavides reimbursement specMedical Secretary Receptionist Internal Medicine 05/24/20 Jose Ramon Contreras MD [address] [place] [address] Specialty Celery Stripper Cardiology 06/14/20 Linus Madrid MD [address] [address] Specialty Celery Stripper Cardiology 07/23/21 Brick Layer Relationship Specialty Start Date End Date Macey Lee MD [address] [place] [address] PCP - General Internal Medicine 12/26/14 No, Referral Referring 06/16/18 13, Pharmacist [address] [place] [address] Pharmacist Pharmacy 03/20/20 Joel Benavides, reimbursement specMedical Secretary Receptionist Internal Medicine 05/24/20 Jose Ramon Contreras MD [address] [place] [address] Specialty Celery Stripper Cardiology 06/14/20 Linus Madrid MD [address] [place] [phone] Specialty Celery Stripper Cardiology 07/23/21 Brick Layer Relationship Specialty Start Date End Date Macey Lee MD [address] [place] [address] PCP - General Internal Medicine 12/26/14 No, Referral Referring 06/16/18 13, Pharmacist [id number] [place] [address] Pharmacist Pharmacy 03/20/20 Joel Benavides, reimbursement specMedical Secretary Receptionist Internal Medicine 05/24/20 Jose Ramon Contreras MD [address] [place] [address] Specialty Celery Stripper Cardiology 06/14/20 Linus Madrid MD [address] [place] [phone] Specialty Celery Stripper Cardiology 07/23/21 Brick Layer Relationship Specialty Start Date End Date Macey Lee MD [address] [place] [address] PCP - General Internal Medicine 12/26/14 No, Referral Referring 06/16/18 13, Pharmacist [address] [place] [address] Pharmacist Pharmacy 03/20/20 Joel Benavides, reimbursement specMedical Secretary Receptionist Internal Medicine 05/24/20 Jose Ramon Contreras MD [address] [place] [address] Specialty Celery Stripper Cardiology 06/14/20 Linus Madrid MD [address] [place] [address], [place] [phone] Specialty Celery Stripper Cardiology 07/23/21 Brick Layer Relationship Specialty Start Date End Date Macey Lee MD [address] [place] [address] PCP - General Internal Medicine 12/26/14 No, Referral Referring 06/16/18 13, Pharmacist [phone] [place] [address] Pharmacist Pharmacy 03/20/20 Joel Benavides, reimbursement specMedical Secretary Receptionist Internal Medicine 05/24/20 Jose Ramon Contreras MD [address] [place] [address] Specialty Celery Stripper Cardiology 06/14/20 Linus Madrid MD [address] [place] [address] Specialty Celery Stripper Cardiology 07/23/21 Brick Layer Relationship Specialty Start Date End Date Macey Lee MD [address] [place] [address] PCP - General Internal Medicine 12/26/14 No, Referral Referring 06/16/18 13, Pharmacist [phone] [place] [address] Pharmacist Pharmacy 03/20/20 Joel Benavides, reimbursement specMedical Secretary Receptionist Internal Medicine 05/24/20 Jose Ramon Contreras MD [address] [place] [address] Specialty Celery Stripper Cardiology 06/14/20 Linus Madrid MD [address] [place] [address] Specialty Celery Stripper Cardiology 07/23/21 Brick Layer Relationship Specialty Start Date End Date Macey Lee MD [address] [place] [address] PCP - General Internal Medicine 12/26/14 No, Referral Referring 06/16/18 13, Pharmacist [address] [place] [address] Pharmacist Pharmacy 03/20/20 Joel Benavides, reimbursement specMedical Secretary Receptionist Internal Medicine 05/24/20 Jose Ramon Contreras MD [address] [place] [address] Specialty Celery Stripper Cardiology 06/14/20 Linus Madrid MD [address] [place] [address], [place] [address] Specialty Celery Stripper Cardiology 07/23/21 Brick Layer Relationship Specialty Start Date End Date Macey Lee MD [address] [place] [address] PCP - General Internal Medicine 12/26/14 No, Referral Referring 06/16/18 13, Pharmacist [address] [place] [address] Pharmacist Pharmacy 03/20/20 Joel Benavides RN Medical Secretary Receptionist Internal Medicine 05/24/20 Jose Ramon Contreras MD [address] [place] [address] Specialty Celery Stripper Cardiology 06/14/20 Linus Madrid MD [address] [address] Specialty Celery Stripper Cardiology 07/23/21 Brick Layer Relationship Specialty Start Date End Date Macey Lee MD [address] [place] [address] PCP - General Internal Medicine 12/26/14 No, Referral Referring 06/16/18 13, Pharmacist [address] [place] [address] Pharmacist Pharmacy 03/20/20 Joel Benavides, reimbursement specMedical Secretary Receptionist Internal Medicine 05/24/20 Jose Ramon Contreras MD [address] [place] [address] Specialty Celery Stripper Cardiology 06/14/20 Linus Madrid MD [address] [place] [address], [place] [address] Specialty Celery Stripper Cardiology 07/23/21 Brick Layer Relationship Specialty Start Date End Date Macey Lee MD [address] [place] [address] PCP - General Internal Medicine 12/26/14 No, Referral Referring 06/16/18 13, Pharmacist [phone] [place] [address] Pharmacist Pharmacy 03/20/20 Joel Benavides, reimbursement specMedical Secretary Receptionist Internal Medicine 05/24/20 Jose Ramon Contreras MD [address] [place] [address] Specialty Celery Stripper Cardiology 06/14/20 Linus Madrid MD [address] [place] [address], [place] [address] Specialty Celery Stripper Cardiology 07/23/21 Brick Layer Relationship Specialty Start Date End Date Macey Lee MD [address] [place] [address] PCP - General Internal Medicine 12/26/14 No, Referral Referring 06/16/18 13, Pharmacist [phone] [place] [address] Pharmacist Pharmacy 03/20/20 Joel Benavides, reimbursement specMedical Secretary Receptionist Internal Medicine 05/24/20 Jose Ramon Contreras MD [address] [place] [address] Specialty Celery Stripper Cardiology 06/14/20 Linus Madrid MD [address] [place] [address] Specialty Celery Stripper Cardiology 07/23/21 Brick Layer Relationship Specialty Start Date End Date Macey Lee MD [address] [place] [address] PCP - General Internal Medicine 12/26/14 No, Referral Referring 06/16/18 13, Pharmacist [address] [place] [address] Pharmacist Pharmacy 03/20/20 Joel Benavides, reimbursement specMedical Secretary Receptionist Internal Medicine 05/24/20 Jose Ramon Contreras MD [address] [place] [address] Specialty Celery Stripper Cardiology 06/14/20 Linus Madrid MD [address] [place] [phone] Specialty Celery Stripper Cardiology 07/23/21 Brick Layer Relationship Specialty Start Date End Date Macey Lee MD [address] [place] [address] PCP - General Internal Medicine 12/26/14 No, Referral Referring 06/16/18 13, Pharmacist [phone] [place] [address] Pharmacist Pharmacy 03/20/20 Joel Benavides, reimbursement specMedical Secretary Receptionist Internal Medicine 05/24/20 Jose Ramon Contreras MD [address] [place] [address] Specialty Celery Stripper Cardiology 06/14/20 Linus Madrid MD [address] [place] [phone] Specialty Celery Stripper Cardiology 07/23/21 Brick Layer Relationship Specialty Start Date End Date Macey Lee MD [address] [place] [address] PCP - General Internal Medicine 12/26/14 No, Referral Referring 06/16/18 13, Pharmacist [address] [place] [address] Pharmacist Pharmacy 03/20/20 Joel Benavides, reimbursement specMedical Secretary Receptionist Internal Medicine 05/24/20 Jose Ramon Contreras MD [address] [place] [address] Specialty Celery Stripper Cardiology 06/14/20 Linus Madrid MD [address] [place] [address] Specialty Celery Stripper Cardiology 07/23/21 Brick Layer Relationship Specialty Start Date End Date Macey Lee MD [address] [place] [address] PCP - General Internal Medicine 12/26/14 No, Referral Referring 06/16/18 13, Pharmacist [phone] [place] [address] Pharmacist Pharmacy 03/20/20 Makayla Maldonado, reimbursement specMedical Secretary Receptionist Internal Medicine 05/24/20 Jose Ramon Contreras MD [address] [place] [address] Specialty Celery Stripper Cardiology 06/14/20 Linus Madrid MD [address] [place] [address] Specialty Celery Stripper Cardiology 07/23/21 Brick Layer Relationship Specialty Start Date End Date Macey Lee MD [address] [place] [address] PCP - General Internal Medicine 12/26/14 No, Referral Referring 06/16/18 13, Pharmacist [phone] [place] [address] Pharmacist Pharmacy 03/20/20 Makayla Maldonado, reimbursement specMedical Secretary Receptionist Internal Medicine 05/24/20 Jose Ramon Contreras MD [address] [place] [address] Specialty Celery Stripper Cardiology 06/14/20 Linus Madrid MD [address] [place] [address], [place] [address] Specialty Celery Stripper Cardiology 07/23/21 Brick Layer Relationship Specialty Start Date End Date Macey Lee MD [address] [place] [address] PCP - General Internal Medicine 12/26/14 No, Referral Referring 06/16/18 13, Pharmacist [phone] [place] [address] Pharmacist Pharmacy 03/20/20 Makayla Maldonado, reimbursement specMedical Secretary Receptionist Internal Medicine 05/24/20 Jose Ramon Contreras MD [address] [place] [address] Specialty Celery Stripper Cardiology 06/14/20 Linus Madrid MD [address] [address] Specialty Celery Stripper Cardiology 07/23/21 Brick Layer Relationship Specialty Start Date End Date Macey Lee MD [address] [place] [address] PCP - General Internal Medicine 12/26/14 No, Referral Referring 06/16/18 13, Pharmacist [phone] [place] [address] Pharmacist Pharmacy 03/20/20 Makayla Maldonado, reimbursement specMedical Secretary Receptionist Internal Medicine 05/24/20 Jose Ramon Contreras MD [address] [place] [address] Specialty Celery Stripper Cardiology 06/14/20 Linus Madrid MD [address] [place] [phone] Specialty Celery Stripper Cardiology 07/23/21 Brick Layer Relationship Specialty Start Date End Date Macey Lee MD [address] [place] [address] PCP - General Internal Medicine 12/26/14 No, Referral Referring 06/16/18 13, Pharmacist [address] [place] [address] Pharmacist Pharmacy 03/20/20 Makayla Maldonado, reimbursement specMedical Secretary Receptionist Internal Medicine 05/24/20 Jose Ramon Contreras MD [address] [place] [address] Specialty Celery Stripper Cardiology 06/14/20 Linus Madrid MD [address] [place] [phone] Specialty Celery Stripper Cardiology 07/23/21 Brick Layer Relationship Specialty Start Date End Date Macey Lee MD [address] [place] [address] PCP - General Internal Medicine 12/26/14 No, Referral Referring 06/16/18 13, Pharmacist [address] [place] [address] Pharmacist Pharmacy 03/20/20 Makayla Maldonado RN Medical Secretary Receptionist Internal Medicine 05/24/20 Jose Ramon Contreras MD [address] [place] [address] Specialty Celery Stripper Cardiology 06/14/20 Linus Madrid MD [address] [place] [phone] Specialty Celery Stripper Cardiology 07/23/21 Brick Layer Relationship Specialty Start Date End Date Macey Lee MD [address] [place] [address] PCP - General Internal Medicine 12/26/14 13, Pharmacist [phone] [place] [address] Pharmacist Pharmacy 03/20/20 Makayla Maldonado, reimbursement specMedical Secretary Receptionist Internal Medicine 05/24/20 Jose Ramon Contreras MD [address] [place] [address] Specialty Celery Stripper Cardiology 06/14/20 Linus Madrid MD [address] [address] Specialty Celery Stripper Cardiology 07/23/21 Nancy Galan MD [address] [place] [address] Specialty Celery Stripper Pulmonary Disease 08/21/22 Natalia Gaffney MD [address] [address] Specialty Celery Stripper Rheumatology 08/21/22 Brick Layer Relationship Specialty Start Date End Date Macey Lee MD [address] [place] [address] PCP - General Internal Medicine 12/26/14 13, Pharmacist [address] [place] [address] Pharmacist Pharmacy 03/20/20 Makayla Maldonado, reimbursement specMedical Secretary Receptionist Internal Medicine 05/24/20 Jose Ramon Contreras MD [address] [place] [address] Specialty Celery Stripper Cardiology 06/14/20 Linus Madrid MD [address] [address] Specialty Celery Stripper Cardiology 07/23/21 Nancy Galan MD [address] [place] [address] Specialty Celery Stripper Pulmonary Disease 08/21/22 Natalia Gaffney MD [address] [address] Specialty Celery Stripper Rheumatology 08/21/22 Brick Layer Relationship Specialty Start Date End Date Macey Lee MD [address] [place], [place] [address] PCP - General Internal Medicine 12/26/14 13, Pharmacist [id number] [place] [address] Pharmacist Pharmacy 03/20/20 Makayla Maldonado, reimbursement specMedical Secretary Receptionist Internal Medicine 05/24/20 Jose Ramon Contreras MD [address] [place] [address] Specialty Celery Stripper Cardiology 06/14/20 Linus Madrid MD [address] [address] Specialty Celery Stripper Cardiology 07/23/21 Nancy Galan MD [address] [place] [address] Specialty Celery Stripper Pulmonary Disease 08/21/22 Natalia Gaffney MD [address] [facility] [address] [place] [address] Specialty Celery Stripper Rheumatology 08/21/22 Brick Layer Relationship Specialty Start Date End Date Macey Lee MD [address] [place], [place] [address] PCP - General Internal Medicine 12/26/14 13, Pharmacist [address] [place] [address] Pharmacist Pharmacy 03/20/20 Makayla Maldonado, reimbursement specMedical Secretary Receptionist Internal Medicine 05/24/20 Jose Ramon Contreras MD [address] [place] [address] Specialty Celery Stripper Cardiology 06/14/20 Linus Madrid MD [address] [place] [phone] Specialty Celery Stripper Cardiology 07/23/21 Nancy Galan MD [address] [place] [address] Specialty Celery Stripper Pulmonary Disease 08/21/22 Natalia Gaffney MD [address] [place] [address] Specialty Celery Stripper Rheumatology 08/21/22 Brick Layer Relationship Specialty Start Date End Date Macey Lee MD [address] [place] [address] PCP - General Internal Medicine 12/26/14 13, Pharmacist [address] [place] [address] Pharmacist Pharmacy 03/20/20 Makayla Maldonado, reimbursement specMedical Secretary Receptionist Internal Medicine 05/24/20 Jose Ramon Contreras MD [address] [place] [address] Specialty Celery Stripper Cardiology 06/14/20 Linus Madrid MD [address] [address] Specialty Celery Stripper Cardiology 07/23/21 Nancy Galan MD [address] [place] [address] Specialty Celery Stripper Pulmonary Disease 08/21/22 Natalia Gaffney MD [address] [place] [address] Specialty Celery Stripper Rheumatology 08/21/22 Brick Layer Relationship Specialty Start Date End Date Macey Lee MD [address] [place] [address] PCP - General Internal Medicine 12/26/14 No, Referral Referring 06/16/18 08/19/22 13, Pharmacist [address] [place] [address] Pharmacist Pharmacy 03/20/20 Makayla Maldonado, reimbursement specMedical Secretary Receptionist Internal Medicine 05/24/20 Jose Ramon Contreras MD [address] [place] [address] Specialty Celery Stripper Cardiology 06/14/20 Linus Madrid MD [address] [address] Specialty Celery Stripper Cardiology 07/23/21 Nancy Galan MD [address] [place] [address] Specialty Celery Stripper Pulmonary Disease 08/21/22 Natalia Gaffney MD [address] [facility] [address] [place] [id number] Specialty Celery Stripper Rheumatology 08/21/22 Brick Layer Relationship Specialty Start Date End Date Macey Lee MD [address] [place], [place] [address] PCP - General Internal Medicine 12/26/14 13, Pharmacist [address] [place] [address] Pharmacist Pharmacy 03/20/20 Makayla Maldonado, reimbursement specMedical Secretary Receptionist Internal Medicine 05/24/20 Jose Ramon Contreras MD [address] [place] [address] Specialty Celery [facility] 06/14/20 Linus Madrid MD [address] [address] Specialty Celery Stripper Cardiology 07/23/21 Nancy Galan MD [address] [place] [address] Specialty Celery Stripper Pulmonary Disease 08/21/22 Natalia Gaffney MD [address] [place] [address] Specialty Celery Stripper Rheumatology 08/21/22 Brick Layer Relationship Specialty Start Date End Date Macey Lee MD [address] [place] [address] PCP - General Internal Medicine 12/26/14, Pharmacist [phone] [place] [address] Pharmacist Pharmacy 03/20/20 Makayla Maldonado, reimbursement specMedical Secretary Receptionist Internal Medicine 05/24/20 Jose Ramon Contreras MD [address] [place] [address] Specialty Celery Stripper Cardiology 06/14/20 Linus Madrid MD [address] [address] Specialty Celery Stripper Cardiology 07/23/21 Nancy Galan MD [address] [place] [address] Specialty Celery Stripper Pulmonary Disease 08/21/22 Natalia Gaffney MD [address] [place] [address] Specialty Celery Stripper Rheumatology 08/21/22 Brick Layer Relationship Specialty Start Date End Date Macey Lee MD [address] [place] [address] PCP - General Internal Medicine 12/26/14, Pharmacist [phone] [place] [address] Pharmacist Pharmacy 03/20/20 Makayla Maldonado, reimbursement specMedical Secretary Receptionist Internal Medicine 05/24/20 Jose Ramon Contreras MD [address] [place] [address] Specialty Celery Stripper Cardiology 06/14/20 Linus Madrid MD [address] [place] [phone] Specialty Celery Stripper Cardiology 07/23/21 Nancy Galan MD [address] [place] [address] Specialty Celery Stripper Pulmonary Disease 08/21/22 Natalia Gaffney MD [address] [address] Specialty Celery Stripper Rheumatology 08/21/22 Brick Layer Relationship Specialty Start Date End Date Macey Lee MD [address] [place], [place] [address]291 PCP - General Internal Medicine 12/26/14 13, Pharmacist [phone] [place] [address] Pharmacist Pharmacy 03/20/20 Makayla Maldonado, reimbursement specMedical Secretary Receptionist Internal Medicine 05/24/20 Jose Ramon Contreras MD [address] [place] [address] Specialty Celery Stripper Cardiology 06/14/20 Linus Madrid MD [address] [address] Specialty Celery Stripper Cardiology 07/23/21 Nancy Galan MD [address] [place] [address] Specialty Celery Stripper Pulmonary Disease 08/21/22 Natalia Gaffney MD [address] [address] Specialty Celery Stripper Rheumatology 08/21/22 Brick Layer Relationship Specialty Start Date End Date Macey Lee MD [address] [place] [address] PCP - General Internal Medicine 12/26/14 13, Pharmacist [address] [place] [address] Pharmacist Pharmacy 03/20/20 Makayla Maldonado, reimbursement specMedical Secretary Receptionist Internal Medicine 05/24/20 Jose Ramon Contreras MD [address] [place] [address] Specialty Celery Stripper Cardiology 06/14/20 Linus Madrid MD [address] [place] [phone] Specialty Celery Stripper Cardiology 07/23/21 Nancy Galan MD [address] [place] [address] Specialty Celery Stripper Pulmonary Disease 08/21/22 Natalia Gaffney MD [address]00 [facility] [address] [place] [address] Specialty Celery Stripper Rheumatology 08/21/22 Brick Layer Relationship Specialty Start Date End Date Macey Lee MD [address] [place] [address] PCP - General Internal Medicine 12/26/14 13, Pharmacist [phone] [place] [address] Pharmacist Pharmacy 03/20/20 Makayla Maldonado reimbursement specMedical Secretary Receptionist Internal Medicine 05/24/20 Jose Ramon Contreras MD [address] [place] [address] Specialty Celery Stripper Cardiology 06/14/20 Linus Madrid MD [address] [address] Specialty Celery Stripper Cardiology 07/23/21 Nancy Galan MD [address] [place] [address] Specialty Celery Stripper Pulmonary Disease 08/21/22 Natalia Gaffney MD [address] [facility] [address] [address] Specialty Celery Stripper Rheumatology 08/21/22 Brick Layer Relationship Specialty Start Date End Date Macey Lee MD [address] [place] [address] PCP - General Internal Medicine 12/26/14 13, Pharmacist [phone] [place] [address] Pharmacist Pharmacy 03/20/20 Makayla Maldonado, reimbursement specMedical Secretary Receptionist Internal Medicine 05/24/20 Jose Ramon Contreras MD [address] [place] [address] Specialty Celery Stripper Cardiology 06/14/20 Linus Madrid MD [address] [address] Specialty Celery Stripper Cardiology 07/23/21 Nancy Galan MD [address] [place] [address] Specialty Celery Stripper Pulmonary Disease 08/21/22 Natalia Gaffney MD 8220 [facility] [address] [address] Specialty Celery Stripper Rheumatology 08/21/22 Brick Layer Relationship Specialty Start Date End Date Macey Lee MD [address] [place] [address] PCP - General Internal Medicine 12/26/14, Pharmacist [phone] [place] [address] Pharmacist Pharmacy 03/20/20 Makayla Maldonado, reimbursement specMedical Secretary Receptionist Internal Medicine 05/24/20 Jose Ramon Contreras MD [address] [place] [address] Specialty Celery Stripper Cardiology 06/14/20 Linus Madrid MD [address] [address] Specialty Celery Stripper Cardiology 07/23/21 Nancy Galan MD [address] [place] [address] Specialty Celery Stripper Pulmonary Disease 08/21/22 Natalia Gaffney MD [address] [address] Specialty Celery Stripper Rheumatology 08/21/22 Brick Layer Relationship Specialty Start Date End Date Macey Lee MD [address] [place] [address] PCP - General Internal Medicine 12/26/14 13, Pharmacist [phone] [place] [address] Pharmacist Pharmacy 03/20/20 Makayla Maldonado, reimbursement specMedical Secretary Receptionist Internal Medicine 05/24/20 Jose Ramon Contreras MD [address] [place] [address] Specialty Celery Stripper Cardiology 06/14/20 Linus Madrid MD [address] [address] Specialty Celery Stripper Cardiology 07/23/21 Nancy Galan MD [address] [place] [address] Specialty Celery Stripper Pulmonary Disease 08/21/22 Natalia Gaffney MD [address] [address] Specialty Celery Stripper Rheumatology 08/21/22 Brick Layer Relationship Specialty Start Date End Date Macey Lee MD [address] [place], [place] [address]31 PCP - General Internal Medicine 12/26/14 13, Pharmacist [address] [place] [address] Pharmacist Pharmacy 03/20/20 Makayla Maldonado, reimbursement specMedical Secretary Receptionist Internal Medicine 05/24/20 Jose Ramon Contreras MD [address] [place] [address] Specialty Celery Stripper Cardiology 06/14/20 Linus Madrid MD [address] [place] [phone] Specialty Celery Stripper Cardiology 07/23/21 Nancy Galan MD [address] [place] [address] Specialty Celery Stripper Pulmonary Disease 08/21/22 Natalia Gaffney MD 9500 [facility] [address] [place] [address] Specialty Celery Stripper Rheumatology 08/21/22 Brick Layer Relationship Specialty Start Date End Date Macey Lee MD [address] [place], [place] [id number] PCP - General Internal Medicine 12/26/14 No, Referral Referring 06/16/18 08/19/22 13, Pharmacist [phone] [place] [address] Pharmacist Pharmacy 03/20/20 Makayla Maldonado, reimbursement specMedical Secretary Receptionist Internal Medicine 05/24/20 Jose Ramon Contreras MD [address] [place] [address] Specialty Celery Stripper Cardiology 06/14/20 Linus Madrid MD [address] [place] [phone] Specialty Celery Stripper Cardiology 07/23/21 Nancy Galan MD [address] [place] [address] Specialty Celery Stripper Pulmonary Disease 08/21/22 Natalia Gaffney MD [address] [place] [address] Specialty Celery Stripper Rheumatology 08/21/22 Brick Layer Relationship Specialty Start Date End Date Macey Lee MD [address] [place] [address] PCP - General Internal Medicine 12/26/14 13, Pharmacist [address] [place] [address] Pharmacist Pharmacy 03/20/20 Makayla Maldonado, reimbursement specMedical Secretary Receptionist Internal Medicine 05/24/20 Jose Ramon Contreras MD [address] [place] [address] Specialty Celery Stripper Cardiology 06/14/20 Linus Madrid MD [address] [address] Specialty Celery Stripper Cardiology 07/23/21 Nancy Galan MD [address] [place] [address] Specialty Celery Stripper Pulmonary Disease 08/21/22 Natalia Gaffney MD [address] [place] [address] Specialty Celery Stripper Rheumatology 08/21/22 Brick Layer Relationship Specialty Start Date End Date Macey Lee MD [address] [place] [address] PCP - General Internal Medicine 12/26/14, Pharmacist [phone] [place] [address] Pharmacist Pharmacy 03/20/20 Makayla Maldonado, reimbursement specMedical Secretary Receptionist Internal Medicine 05/24/20 Jose Ramon Contreras MD [address] [place] [address] Specialty Celery Stripper Cardiology 06/14/20 Linus Madrid MD [address] [address] Specialty Celery Stripper Cardiology 07/23/21 Nancy Galan MD [address] [place] [address] Specialty Celery Stripper Pulmonary Disease 08/21/22 Natalia Gaffney MD 9500 [facility] [address] [address] Specialty Celery Stripper Rheumatology 08/21/22 Brick Layer Relationship Specialty Start Date End Date Macey Lee MD [address] [place] [address] PCP - General Internal Medicine 12/26/14 13, Pharmacist [phone] [place] [address] Pharmacist Pharmacy 03/20/20 Jose Ramon Contreras MD [address] [place] [address] Specialty Celery Stripper Cardiology 06/14/20 Linus Madrid MD [address] [address] Specialty Celery Stripper Cardiology 07/23/21 Nancy Galan MD [address] [place] [address] Specialty Celery Stripper Pulmonary Disease 08/21/22 Natalia Gaffney MD [address] [address] Specialty Celery Stripper Rheumatology 08/21/22 Tamra Mock, VIKY [address] [place] [address] Medical Secretary Receptionist Internal Medicine 01/15/23 Brick Layer Relationship Specialty Start Date End Date Macey Lee MD [address] [place], [place] [id number] PCP - General Internal Medicine 12/26/14, Pharmacist [phone] [place] [address] Pharmacist Pharmacy 03/20/20 Jose Ramon Contreras MD [address] [place] [address] Specialty Celery Stripper Cardiology 06/14/20 Linus Madrid MD [address] [address] Specialty Celery Stripper Cardiology 07/23/21 Nancy Galan MD [address] [place] [address] Specialty Celery Stripper Pulmonary Disease 08/21/22 Natalia Gaffney MD 9500 [facility] [address] [place] [address] Specialty Celery Stripper Rheumatology 08/21/22 Tamra Mock, VIKY [address] [place] [address] Medical Secretary Receptionist Internal Medicine 01/15/23 Brick Layer Relationship Specialty Start Date End Date Macey Lee MD [address] [place] [address] PCP - General Internal Medicine 12/26/14, Pharmacist [phone] [place] [address] Pharmacist Pharmacy 03/20/20 Jose Ramon Contreras MD [address] [place] [address] Specialty Celery Stripper Cardiology 06/14/20 Linus Madrid MD [address] [address] Specialty Celery Stripper Cardiology 07/23/21 Nancy Galan MD [address] [place] [address] Specialty Celery Stripper Pulmonary Disease 08/21/22 Natalia Gaffney MD [address] [address] Specialty Celery Stripper Rheumatology 08/21/22 Tamra Mock, RN [address] [place] [address] Medical Secretary Receptionist Internal Medicine 01/15/23 Brick Layer Relationship Specialty Start Date End Date Macey Lee MD [address] [place] [address] PCP - General Internal Medicine 12/26/14 13, Pharmacist [address] [place] [address] Pharmacist Pharmacy 03/20/20 Jose Ramon Contreras MD [address] [place] [address] Specialty Celery Stripper Cardiology 06/14/20 Linus Madrid MD [address] [address] Specialty Celery Stripper Cardiology 07/23/21 Nancy Galan MD [address] [place] [address] Specialty Celery Stripper Pulmonary Disease 08/21/22 Natalia Gaffney MD [address] [address] Specialty Celery Stripper Rheumatology 08/21/22 Tamra Mock, VIKY [address] [place] [address] Medical Secretary Receptionist Internal Medicine 01/15/23 Brick Layer Relationship Specialty Start Date End Date Macey Lee MD [address] [place] [address] PCP - General Internal Medicine 12/26/14, Pharmacist [phone] [place] [address] Pharmacist Pharmacy 03/20/20 Joes Ramon Contreras MD [address] [place] [address] Specialty Celery Stripper Cardiology 06/14/20 Linus Madrid MD [address] [address] Specialty Celery Stripper Cardiology 07/23/21 Nancy Galan MD [address] [place] [address] Specialty Celery Stripper Pulmonary Disease 08/21/22 Natalia Gaffney MD [address] [address] Specialty Celery Stripper Rheumatology 08/21/22 Tamra Mock, VIKY [address] [place] [address] Medical Secretary Receptionist Internal Medicine 01/15/23 Brick Layer Relationship Specialty Start Date End Date Macey Lee MD [address] [place] [address] PCP - General Internal Medicine 12/26/14, Pharmacist [phone] [place] [address] Pharmacist Pharmacy 03/20/20 Jose Ramon Contreras MD [address] [place] [address] Specialty Celery Stripper Cardiology 06/14/20 Linus Madrid MD [address] [address] (Fax) Specialty Celery Stripper Cardiology 07/23/21 Nancy Galan MD [address] [place] [address] Specialty Celery Stripper Pulmonary Disease 08/21/22 Natalia Gaffney MD [address] [place], [place] [address] Specialty Celery Stripper Rheumatology 08/21/22 Tamra Mock, RN [address] [place] [address] Medical Secretary Receptionist Internal Medicine 01/15/23 Brick Layer Relationship Specialty Start Date End Date Macey Lee MD [address] [place] [address] PCP - General Internal Medicine 12/26/14 13, Pharmacist [address] [place] [address] Pharmacist Pharmacy 03/20/20 Jose Ramon Contreras MD [address] [place] [address] (Fax) Specialty Celery Stripper Cardiology 06/14/20 Linus Madrid MD [address] [address] (Fax) Specialty Celery Stripper Cardiology 07/23/21 Nancy Galan MD [address] [place] [address] Specialty Celery Stripper Pulmonary Disease 08/21/22 Natalia Gaffney MD [address] [place] [address] Specialty Celery Stripper Rheumatology 08/21/22 Tamra Mock, RN [address] [place] [address] Medical Secretary Receptionist Internal Medicine 01/15/23 Brick Layer Relationship Specialty Start Date End Date Macey Lee MD [address] [place] [address] PCP - General Internal Medicine 12/26/14 13, Pharmacist [address] [place] [address] Pharmacist Pharmacy 03/20/20 Jose Ramon Contreras MD [address] [place] [address] Specialty Celery Stripper Cardiology 06/14/20 Linus Madrid MD [address] [phone] Specialty Celery Stripper Cardiology 07/23/21 Nancy Galan MD [address] [place] [address] Specialty Celery Stripper Pulmonary Disease 08/21/22 Natalia Gaffney MD [address] [place] [address] Specialty Celery Stripper Rheumatology 08/21/22 Tamra Mock, VIKY [address] [place] [address] Medical Secretary Receptionist Internal Medicine 01/15/23 Brick Layer Relationship Specialty Start Date End Date Macey Lee MD [address] [place] [address] PCP - General Internal Medicine 12/26/14 13, Pharmacist [address] [place] [address] Pharmacist Pharmacy 03/20/20 Jose Ramon Contreras MD [address] [place] [address] Specialty Celery Stripper Cardiology 06/14/20 Linus Madrid MD [address] [phone] Specialty Celery Stripper Cardiology 07/23/21 Nancy Galan MD [address] [place] [address] Specialty Celery Stripper Pulmonary Disease 08/21/22 Natalia Gaffney MD 9500 [facility] [address] [place] [address] Specialty Celery Stripper Rheumatology 08/21/22 Tamra Mock, VIKY [address] [place] [address] Medical Secretary Receptionist Internal Medicine 01/15/23 Brick Layer Relationship Specialty Start Date End Date Macey Lee MD [facility] [place] [address] PCP - General Internal Medicine 12/26/14 13, Pharmacist [address] [place] [address] Pharmacist Pharmacy 03/20/20 Jose Ramon Contreras MD [address] [place] [address] Specialty Celery Stripper Cardiology 06/14/20 Linus Madrid MD [address] [address] Specialty Celery Stripper Cardiology 07/23/21 Nancy Galan MD [address] [place] [address] Specialty Celery Stripper Pulmonary Disease 08/21/22 Natalia Gaffney MD [address] [address] Specialty Celery Stripper Rheumatology 08/21/22 Tamra Mock, RN [address] [place] [address] Medical Secretary Receptionist Internal Medicine 01/15/23 Brick Layer Relationship Specialty Start Date End Date Macey Lee MD [address] [place] [address] PCP - General Internal Medicine 12/26/14 13, Pharmacist [address] [place] [address] Pharmacist Pharmacy 03/20/20 Jose Ramon Contreras MD [address] [place] [address] Specialty Celery Stripper Cardiology 06/14/20 Linus Madrid MD [address] [phone] Specialty Celery Stripper Cardiology 07/23/21 Nancy Galan MD [address] [place] [address] Specialty Celery Stripper Pulmonary Disease 08/21/22 Natalia Gaffney MD [address] [id number] Specialty Celery Stripper Rheumatology 08/21/22 Tamra Mock, VIKY [address] [place] [address] Medical Secretary Receptionist Internal Medicine 01/15/23 Brick Layer Relationship Specialty Start Date End Date Macey Lee MD [address] [place] [address] PCP - General Internal Medicine 12/26/14, Pharmacist [address] [place] [address] Pharmacist Pharmacy 03/20/20 Jose Ramon Contreras MD [address] [place] [address] Specialty Celery Stripper Cardiology 06/14/20 Linus Madrid MD [address] [address] Specialty Celery Stripper Cardiology 07/23/21 Nancy Galan MD [address] [place] [address] Specialty Celery Stripper Pulmonary Disease 08/21/22 Natalia Gaffney MD [address] [place] [address] Specialty Celery Stripper Rheumatology 08/21/22 Tamra Mock, VIKY [address] [place] [address] Medical Secretary Receptionist Internal Medicine 01/15/23 Brick Layer Relationship Specialty Start Date End Date Macey Lee MD [address] [place] [address] PCP - General Internal Medicine 12/26/14, Pharmacist [address] [place] [address] Pharmacist Pharmacy 03/20/20 Jose Ramon Contreras MD [address] [place] [address] (Fax) Specialty Celery Stripper Cardiology 06/14/20 Linus Madrid MD [address] [phone] (Fax) Specialty Celery Stripper Cardiology 07/23/21 Nancy Galan MD [address] [place] [address] Specialty Celery Stripper Pulmonary Disease 08/21/22 Natalia Gaffney MD [address] [place] [address] Specialty Celery Stripper Rheumatology 08/21/22 Tamra Mock, RN [address] [place] [address] Medical Secretary Receptionist Internal Medicine 01/15/23 Brick Layer Relationship Specialty Start Date End Date Macey Lee MD [address] [place] [address] PCP - General Internal Medicine 12/26/14 13, Pharmacist [address] [place] [address] Pharmacist Pharmacy 03/20/20 Jose Ramon Contreras MD [address] [place] [address] (Fax) Specialty Celery Stripper Cardiology 06/14/20 Linus Madrid MD [address] [phone] Specialty Celery Stripper Cardiology 07/23/21 Nancy Galan MD [address] [place] [address] Specialty Celery Stripper Pulmonary Disease 08/21/22 Natalia Gaffney MD [address] [address] Specialty Celery Stripper Rheumatology 08/21/22 Tamra Mock RN 6[address] [place] [address] Medical Secretary Receptionist Internal Medicine 01/15/23 Brick Layer Relationship Specialty Start Date End Date Macey Lee MD [address] [place] [address] PCP - General Internal Medicine 12/26/14 13, Pharmacist [phone] [place] [address] Pharmacist Pharmacy 03/20/20 Jose Ramon Contreras MD [address] [place] [address] Specialty Celery Stripper Cardiology 06/14/20 Linus Madrid MD [address] [phone] Specialty Celery Stripper Cardiology 07/23/21 Nancy Galan MD [address] [place] [address] Specialty Celery Stripper Pulmonary Disease 08/21/22 Natalia Gaffney MD [address] [address] Specialty Celery Stripper Rheumatology 08/21/22 Tamra Mock RN [address] [place] [address] Medical Secretary Receptionist Internal Medicine 01/15/23 Brick Layer Relationship Specialty Start Date End Date Macey Lee MD [address] [facility] [place] [address] PCP - General Internal Medicine 12/26/14 13, Pharmacist [address] [place] [address] Pharmacist Pharmacy 03/20/20 Jose Ramon Contreras MD [address] [place] [address] (Fax) Specialty Celery Stripper Cardiology 06/14/20 Linus Madrid MD [address] [phone] Specialty Celery Stripper Cardiology 07/23/21 Nancy Galan MD [address] [place] [address] Specialty Celery Stripper Pulmonary Disease 08/21/22 Natalia Gaffney MD 9500 [facility] [place] [address] Specialty Celery Stripper Rheumatology 08/21/22 Tamra Mock, RN [address] [place] [address] Medical Secretary Receptionist Internal Medicine 01/15/23 Brick Layer Relationship Specialty Start Date End Date Macey Lee MD [address] [place] [address] PCP - General Internal Medicine 12/26/14, Pharmacist [address] [place] [address] Pharmacist Pharmacy 03/20/20 Jose Ramon Contreras MD [address] [place] [address] (Fax) Specialty Celery Stripper Cardiology 06/14/20 Linus Madrid MD [address] [place] [address] (Fax) Specialty Celery Stripper Cardiology 07/23/21 Nancy Galan MD [address] [place] [address] Specialty Celery Stripper Pulmonary Disease 08/21/22 Natalia Gaffney MD [address] [place] [address] Specialty Celery Stripper Rheumatology 08/21/22 Tamra Mock, RN [address] [place] [address] Medical Secretary Receptionist Internal Medicine 01/15/23 Brick Layer Relationship Specialty Start Date End Date Macey Lee MD [address] [place] [address] PCP - General Internal Medicine 12/26/14 13, Pharmacist [address] [place] [address] Pharmacist Pharmacy 03/20/20 Jose Ramon Contreras MD [address] [place] [address] (Fax) Specialty Celery Stripper Cardiology 06/14/20 Linus Madrid MD [address] [place] [phone] (Fax) Specialty Celery Stripper Cardiology 07/23/21 Nancy Galan MD [address] [place] [address] Specialty Celery Stripper Pulmonary Disease 08/21/22 Natalia Gaffney MD [address] [place] [address] Specialty Celery Stripper Rheumatology 08/21/22 Tamra Mock RN [address] [place] [address] Medical Secretary Receptionist Internal Medicine 01/15/23 Brick Layer Relationship Specialty Start Date End Date Macey Lee MD [address] [place] [address] PCP - General Internal Medicine 12/26/14 13, Pharmacist [address] [place] [address] Pharmacist Pharmacy 03/20/20 Jose Ramon Contreras MD [address] [place], [place] [id number] Specialty Celery Stripper Cardiology 06/14/20 Linus Madrid MD [address] [place] [phone] Specialty Celery Stripper Cardiology 07/23/21 Nancy Galan MD [address] [place] [address] Specialty Celery Stripper Pulmonary Disease 08/21/22 Natalia Gaffney MD [address] [place] [address] Specialty Celery Stripper Rheumatology 08/21/22 Tamra Mcok RN [address] [place] [address] Medical Secretary Receptionist Internal Medicine 01/15/23 FOR RECORDS PERTAINING TO [...] BE BASED ON THE PRIMARY CLINICAL RECORDS. [employer] provides no warranty or guarantee of the accuracy or completeness of information in this document.
[2023-09-15] MEDS: Ipratropium/Albuterol Sulfate 3 ML AMPUL.NEB INHALATION (20:45)
[2023-09-15] MEDS: 0.9% Saline Lock 10 ML Syringe IV (22:05)
[2023-09-15] MEDS: Furosemide 20 MG/2 ML VIAL IV (22:05)
[2023-09-15] MEDS: Atorvastatin Calcium 20 MG Tablet PO (22:05)
[2023-09-15] MEDS: Carvedilol 3.125 MG TABLET PO (22:05)
[2023-09-16] VITALS (9 sets, daily range): BP systolic 104–136; BP diastolic 48–69; PULSE 47–86; RESP 16–20; TEMP 36.4–36.9; O2SAT 88–96; BMI 23.6; BMI 23.3
[2023-09-16 05:25] LABS: Absolute Lymphocyte Count 1.93 X10^3/uL (0.83-4.51); Absolute Neutrophil Count 4.9 X10^3/uL (2.0-7.7); Basophil# 0.06 X10^3/uL; Basophil% 0.7 % (0-1); Eosinophil# 0.54 X10^3/uL; Eosinophils% 6.6 % (0-5); Hematocrit 36.6 % (40-54); Hemoglobin 12.1 g/dL (13.0-16.5); Lymphocyte # 1.93 X10^3/ul (0.83-4.51); Lymphocyte % 23.6 % (19-41); Mean Corp Hgb Conc 33.1 g/dL (32-36); Mean Corpuscular Hgb 32.1 pg (27.0-32.0); Mean Corpuscular Volume 97.1 fL (80-94); Mean Platelet Vol. 9.9 fl (6.2-12.0); Monocyte# 0.77 X10^3/uL; Monocyte% 9.4 % (0-10); NRBC Flagged by Analyzer 0 % (0-5); Neutrophil # 4.86 X10^3/uL (2.7-7.7); Neutrophil % 59.3 % (47-70); Platelet Count 157 K/mm3 (150-450); RBC Distribution Width CV 16.1 % (11.6-14.6); Red Blood Count 3.77 M/mm3 (4.6-6.2); White Blood Count 8.2 K/mm3 (4.4-11.0)
[2023-09-16 05:32] LABS: International Normalized Ratio 2.9; Prothrombin Time (Protime)PT. 30.6 SECONDS (11.7-14.9)
[2023-09-16 05:44] LABS: Anion Gap 2 (5-15); BUN 23 mg/dL (7-18); BUN/Creat Ratio 24.5 RATIO (10-20); Calcium,Total 8.6 mg/dL (8.5-10.1); Chloride 104 mmol/L (98-107); Creatinine, Serum 0.94 mg/dL (0.70-1.30); EST Glomerular Filtration Rate 82 mL/min (>60); Est Glom Filt Rate - Afr Amer 100 mL/min (>60); Estimated Creatinine Clearance 66.76 ml/min; Glucose 99 mg/dL (74-106); Potassium 4.2 mmol/L (3.5-5.1); Sodium Level 134 mmol/L (136-145)
[2023-09-16] MEDS: Ipratropium/Albuterol Sulfate 3 ML AMPUL.NEB INHALATION ×3 (07:13→19:35)
--- NOTE | 2023-09-16 08:18 | PCM.PN.HOSP ---
Reason for Visit Reason for Visit: Diagnoses Chronic atrial fibrillation, unspecified (09/15/23) Heart failure, unspecified (09/15/23) Hypoxemia (09/15/23) Subjective Subjective Patient per self and staff with no acute events overnight. He notes feeling improved since initial presentation with less dyspnea and moving with greater ease. He does report that he has been at home by himself because his has been in a skilled facility following an injury and he has been cooking for himself but primarily been purchasing pre-made meals at the store. Discussed with patient importance of avoiding high salt items. He does report that he has been weighing himself and he thinks it was similar but unsure. Patient denies fevers, chills, nausea, emesis, abdominal pain, chest pain. Objective Data Objective Data Vital Signs: Vital Signs Temp Pulse Resp BP Pulse Ox O2 Del Method O2 Flow Rate 98.4 F 47 L 16 109/61 94 Room Air 2 09/16/23 06:15 09/16/23 06:15 09/16/23 06:15 09/16/23 06:15 09/16/23 06:15 09/16/23 06:15 09/15/23 20:45 Oxygen Flow Rate (L/min) 2 Oxygen Delivery Method Room Air Weight: 167 lb 12.348 oz Body Mass Index (BMI) 23.3 Intake & Output: Intake and Output for Last 24 Hours 09/14/23 09/15/23 09/16/23 23:59 23:59 23:59 Intake Total 360 / 360 120 / 120 Balance 360 / 360 120 / 120 Lab / Micro Data 09/16/23 04:39 09/16/23 04:39 Labs: Laboratory Results - last 24 hr 09/15/23 12:50: WBC 7.4, RBC 4.26 L, Hgb 13.7, Hct 41.9, MCV 98.4 H, MCH 32.2 H, MCHC 32.7, RDW Std Deviation 59.7 H, RDW Coeff of Darnell 16.4 H, Plt Count 186, MPV 10.0, Immature Gran % (Auto) 0.400, Neut % (Auto) 60.4, Lymph % (Auto) 23.2, [place] % (Auto) 10.6 H, Eos % (Auto) 4.7, Baso % (Auto) 0.7, Absolute Neuts (auto) 4.5, Absolute Lymphs (auto) 1.71, Nucleated RBC % 0, PT 27.9 H, INR 2.6, Sodium 133 L, Potassium 4.4, Chloride 103, Carbon Dioxide 27.0, Anion Gap 3 L, BUN 24 H, Creatinine 1.16, Estim Creat Clear Calc 54.09, Est GFR (MDRD) Af Amer 78, Est GFR (MDRD) Non-Af 64, BUN/Creatinine Ratio 20.7 H, Glucose 89, Calcium 9.1, Troponin I High Sens 18, B-Natriuretic Peptide 176.4 H 09/15/23 15:15: Troponin I High Sens 18 09/16/23 04:39: WBC 8.2, RBC 3.77 L, Hgb 12.1 L, Hct 36.6 L, MCV 97.1 H, MCH 32.1 H, MCHC 33.1, RDW Std Deviation 58.0 H, RDW Coeff of Darnell 16.1 H, Plt Count 157, MPV 9.9, Immature Gran % (Auto) 0.400, Neut % (Auto) 59.3, Lymph % (Auto) 23.6, Richmond % (Auto) 9.4, Eos % (Auto) 6.6 H, Baso % (Auto) 0.7, Absolute Neuts (auto) 4.9, Absolute Lymphs (auto) 1.93, Nucleated RBC % 0, PT 30.6 H, INR 2.9, Sodium 134 L, Potassium 4.2, Chloride 104, Carbon Dioxide 28.0, Anion Gap 2 L, BUN 23 H, Creatinine 0.94, Estim Creat Clear Calc 66.76, Est GFR (MDRD) Af Amer 100, Est GFR (MDRD) Non-Af 82, BUN/Creatinine Ratio 24.5 H, Glucose 99, Calcium 8.6 Micro: Microbiology 09/15/23 20:32 Mucosa - Nasopharyngeal Respiratory Panel (PCR) - Final 09/15/23 13:24 Mucosa - Nose SARS-CoV-2, Influenza & RSV (PCR) - Final Radiography Diagnostic Testing: Radiology Impression Chest X-Ray 09/15/23 12:50 IMPRESSION: Stable chest with no interval emergence of a more acute finding. Findings may represent interstitial edema/congestive failure and follow-up chest imaging to resolution is recommended. Electronically Signed: Vel Nassar MD at 13:17 EST , Physical Exam Narrative Physical Examination: General: Awake, alert, oriented x 3 and cooperative, seated upright in ED bed in no apparent distress. Skin: Normal color, normal turgor, no icterus, no cyanosis except occasional staged ecchymoses . HEENT: AT/NC, EOMI, PERRLA, MMM. Lungs: Mildly diminished, greater bases, appropriate effort, no rales, ronchi or wheezing. Heart: Rate lower, rate controlled; no gallop, rub audible. Abdomen: Soft, NTTP, ND, normal BS. Extremities: No cyanosis, clubbing, or edema. Neurological: Patient awake, alert, oriented as noted, cognitive function intact; pupils equally reactive to light and accommodation, cranial nerves II-XII grossly normal, moving all 4 extremities, no focal deficits, strength improved, mild to moderately globally decreased. Psychiatric: Affect appears fatigued otherwise normal, no acute evidence of depressive or anxiety feelings. Assessment & Plan Assessment/Plan (1) Congestive heart failure: PLAN: Plan The patient is a 77 y/o M w/ PMHx: CKD stage II per GFR trending, Allergic rhinitis, GERD, Anxiety and Depression/Panic attacks, Chronic bradycardia, HTN, HLD, Hx Sick Sinus Syndrome s/p pacemaker status, Dementia unclear type with unclear behavioral disturbance history, Chronic AF, Valvular Heart Disease, Interstitial lung disease/Pulmonary fibrosis, Chronic anemia, HFpEF, recent admission 08/21/23-08/26/23 following evaluation and care of acute on chronic diastolic heart failure, hypoxia associated who now represents to the [facility] ED on 09/15/23 with history of worsening dyspnea over the past 4 days with chest tightness and a cough noted to be nonproductive if no recent fevers or chills. #1. Acute Hypoxia secondary to Acute Decompensated HFpEF although certainly could be component confounding presentation #2: Oxygenation the ED noted to be 85% on room air as well as chest x-ray with interstitial edema versus congestive heart failure, BNP 176.4, troponin within normal noted 18 with repeat delta also 18. Admitted to PCU, maintained on cardiac telemetry, continued IV lasix diuresis, monitor I/Os, continued medical therapy, recent normal TSH, mag requested. Recent admission ECHO 08/21/23 w/ LVEF 50%, normal LV size, LV systolic function lower limit normal, PASP 40 mmHg, bioprosthetic mitral valve. PT/OT/CM consulted for discharge planning. #2. Idiopathic pulmonary fibrosis/interstitial lung disease: Will continue aggressive I-S, supportive care, noted recent intention to transition to Dr. Estrada pulmonary medicine with BMS as previously followed with [facility]. To be cautious upon presentation full respiratory viral obtained noted to be negative. #3. Dementia unclear type with unclear behavioral disturbance history: Complicates presentation, will maintain on fall and aspiration precautions, PT/OT/case management consulted for discharge planning. #4. Chronic macrocytic anemia: Admission hemoglobin initially 13.7 however following diuresis repeat 09/16/2023 hemoglobin 12.1, MCV 98.4 and repeat 09/16/2023 97.1, baseline hemoglobin 12 range, stable, continue to trend. #5. Chronic Kidney Disease Stage II per GFR trending: Admission BUN/Cr 24/1.16, baseline renal function 1.0-1.1, baseline GFR appears primarily 76-84, current admission GFR initially 64 with repeat 09/16/23 82, 09/16/2023 BUN/creatinine 23/0.94, repeat BMP in AM. #6. History sick sinus syndrome: s/p pacemaker status. #7. Valvular heart disease: History of MV replacement unclear specific type, most recent echo as noted above. #8. Hypertension: Continue home regimen including Coreg, IV Lasix as noted above, PRN hydralazine. #9. Hyperlipidemia: Continue home statin regimen. #10. Anxiety and depression/panic attacks: We will continue patient home Paxil regimen. #11. PAF: We will continue patient home Coreg and Coumadin with INR trending, INR therapeutic upon presentation 2.6 and most recent repeat 09/16/23 INR 2.9. #12. Allergic rhinitis: We will continue patient on fluticasone regimen. #13. GERD: We will continue patient on PPI #14. DVT prophylaxis: Continue home Coumadin with INR trending, INR therapeutic upon presentation 2.6 and most recent repeat 09/16/23 INR 2.9. #15. CODE status: Patient HCPOA is his and living will is currently in place. DNR-CCA, no intubation status. Charges/Coding Visit Charges Inpatient E&M: 06232 Subs Hosp L2
[2023-09-16] MEDS: Furosemide 40 MG/4 ML Vial IV (09:38)
[2023-09-16] MEDS: Carvedilol 3.125 MG TABLET PO ×2 (09:38→21:04)
[2023-09-16] MEDS: Pantoprazole Sodium 40 MG Tablet PO (09:39)
[2023-09-16] MEDS: Paroxetine 20 MG Tablet PO (09:39)
[2023-09-16] MEDS: 0.9% Saline Lock 10 ML Syringe IV (09:41)
--- NOTE | 2023-09-16 10:57 | CASEMGMT ---
Readmission Note: Index: 08/21-08/26/23. Dx: CHF Exacerbation, Hypoxia Readmission: 09/15/23. Dx: Hypoxia, Fluid Overload Pt with A-fib, pacemaker, anxiety, pulmonary fibrosis, & hypertension was admitted on the above noted dates for the corresponding dx?s. On index admission, pt was able to be weaned off with oxygen and the pt was to be DC with OP therapy. Pt was prescribed K and Torsemide at DC. Pt returned to [facility] as the pt was experiencing increased SOB over the past 4 days especially with exertion. Pt has had a cough with no significant production of sputum. Face to face with pt at this time. Pt resting comfortably in bed and is A&Ox4. Pt states that he did not go to outpt therapy after initial DC as he forgot. Pt states he did not need additional O2 at home. Pt states he was able to take the K and Torsemide as prescribed. Pt sates that he is independent and still drives. Pt states that he would like to go to outpt therapy after DC this stay. Pt states that he would wish to set up OP Tx himself. Pt states that he feels safe at home. Rx signed by Dr. Benton. PT still needs to eval the pt. Will hold onto Rx until PT evaluates. Pt educated to contact CM if any further needs arise. Will follow.
[2023-09-16 13:51] LABS: Magnesium 2.3 mg/dL (1.6-2.6)
--- NOTE | 2023-09-16 13:53 | CHAPLAIN ---
Type of Pastoral Visit _x__ Initial Visit ___ Follow-up Visit ___ On-call Visit ___ General Patient Visit ___ Spiritual Assessment ___ Family Conference ___ Bereavement ___ Rapid Response ___ Code Blue ___ Other (describe below) Pastoral Care Referral From _x__ Patient ___ Family ___ Nurse ___ Physician ___ Sailing Officer ___ Principal Security Architect ___ Other (describe below) Sacrament/Intervention ___ Active listening ___ Anointing ___ Yazidism ___ Bereavement ___ Communion ___ Anamaria exploration ___ ___ Life review ___ Prayer ___ Reconciliation ___ Sacrament of Sick _x__ Supportive presence ___ Wedding ___ Other (describe below) Pastoral Comments patient is resting in his bed and awakens to his name; pt remains in reclining position and states how tired he is and how he just feels so 'worn down'; asked pt how he is coping with his situation and he is unable to answer that clearly because I'm not even thinking right now ; asked pt is he has worries and pt said I don't think so ; offer of support and pt is unable to think about what he needs; offer of presence as desired is given
[2023-09-16] MEDS: Potassium Chloride Oral Tablet 10 MEQ PO (17:32)
[2023-09-16] MEDS: Furosemide 40 MG Tablet PO (17:32)
[2023-09-16] MEDS: Atorvastatin Calcium 20 MG Tablet PO (21:04)
[2023-09-16] MEDS: Lisinopril 10 MG Tablet PO (21:08)
[2023-09-17 03:30] VITALS: BP 97/57; PULSE 63; RESP 18; TEMP 36.7; O2SAT 93
[2023-09-17 04:30] VITALS: BMI 23.5
--- NOTE | 2023-09-17 06:26 | PN.HOSP_ITS ---
Reason for Visit Reason for Visit: Diagnoses Chronic atrial fibrillation, unspecified (09/15/23) Heart failure, unspecified (09/15/23) Hypoxemia (09/15/23) Subjective Subjective Patient with no acute events overnight per self and per nursing report. Several discussions through the day with patient as well as Dr. Estrada as unfortunately appears that to follow-up with his office will not be possible secondary to patient's insurance therefore discussed with Dr. Estrada and alternate [facility] physician/distribution superintendent was contacted and visit made which was relayed to patient. Discussed his current lung disease and the likelihood of it pro gressing. Did talk patient through the course of this type of lung disease and noted that at some point he would likely need oxygen. Also discussed possibly future need for consideration palliative care consultation for chronic dyspnea. Discussed his improvement, able to lay flat, weight 173-->168 lbs with no oxygen requirement upon ambulatory trial thus planned discharge to which he is amenable. Patient denies fevers, chills, nausea, emesis, abdominal pain, chest pain or worsening dyspnea. Objective Data Objective Data Vital Signs: Vital Signs Temp Pulse Resp BP Pulse Ox O2 Del Method O2 Flow Rate 98.0 F 63 18 97/57 L 93 Room Air 2 09/17/23 03:30 09/17/23 03:30 09/17/23 03:30 09/17/23 03:30 09/17/23 03:30 09/17/23 05:33 09/16/23 21:00 Oxygen Flow Rate (L/min) 2 Oxygen Delivery Method Room Air Weight: 168 lb 10.458 oz Body Mass Index (BMI) 23.5 Intake & Output: Intake and Output for Last 24 Hours 09/15/23 09/16/23 09/17/23 23:59 23:59 23:59 Intake Total 360 / 360 540 / 540 Balance 360 / 360 540 / 540 Lab / Micro Data 09/17/23 06:45 09/17/23 06:45 Labs: Laboratory Results - last 24 hr 09/16/23 04:39: Magnesium 2.3 Micro: Microbiology 09/15/23 20:32 Mucosa - Nasopharyngeal Respiratory Panel (PCR) - Final 09/15/23 13:24 Mucosa - Nose SARS-CoV-2, Influenza & RSV (PCR) - Final Physical Exam Narrative Physical Examination: General: Awake, alert, oriented x 3 and cooperative, seated upright in the PCU bed, also seen later in the day laying flat of note without issues. Skin: Normal color, normal turgor, no icterus, no cyanosis except occasional staged ecchymoses . HEENT: AT/NC, EOMI, PERRLA, MMM. Lungs: Mildly diminished, greater bases, appropriate effort, no rales, ronchi or wheezing. Heart: Irregular, rate controlled; no gallop, rub audible. Abdomen: Soft, NTTP, ND, normal BS. Extremities: No cyanosis, no clubbing, no marked edema noted. Neurological: Patient awake, alert, oriented as noted, cognitive function inta ct; pupils equally reactive to light and accommodation, cranial nerves II-XII grossly normal, moving all 4 extremities, no focal deficits, strength improved, mild to moderately globally decreased. Psychiatric: Affect appears normal, no acute evidence of depressive or anxiety feelings. Assessment & Plan Assessment/Plan (1) Congestive heart failure: PLAN: Plan The patient is a 77 y/o M w/ PMHx: CKD stage II per GFR trending, Allergic rhinitis, GERD, Anxiety and Depression/Panic attacks, Chronic bradycardia, HTN, HLD, Hx Sick Sinus Syndrome s/p pacemaker status, Dementia unclear type with unclear behavioral disturbance history, Chronic AF, Valvular Heart Disease, Interstitial lung disease/Pulmonary fibrosis, Chronic anemia, HFpEF, recent admission 08/21/23-08/26/23 following evaluation and care of acute on chronic diastolic heart failure, hypoxia associated who now represents to the [facility] ED on 09/15/23 with history of worsening dyspnea over the past 4 days with chest tightness and a cough noted to be nonproductive if no recent fevers or chills. #1. Acute Hypoxia secondary to Acute Decompensated HFpEF although certainly could be component confounding presentation #2: Oxygenation the ED noted to be 85% on room air as well as chest x-ray with interstitial edema versus congestive heart failure, BNP 176.4, troponin within normal noted 18 with repeat delta also 18. Admitted to PCU, maintained on cardiac telemetry, IV lasix diuresis-->restarted oral torsemide 09/16/23 evening, monitor I/Os, continued medical therapy, recent normal TSH, mag requested. Recent admission ECHO 08/21/23 w/ LVEF 50%, normal LV size, LV systolic function lower limit normal, PASP 40 mmHg, bioprosthetic mitral valve. Weight appropriately decreased. No orthopnea. No ambulatory oxygen needs. PT/OT/CM consulted for discharge planning. PT/OT with home therapies encouraged as well as meal delivery. Given clinical improvement, stable, noted plan for discharge to home to which patient was amenable. #2. Idiopathic pulmonary fibrosis/interstitial lung disease: Will continue aggressive I-S, supportive care, noted recent intention to transition to Dr. 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 Full respiratory viral negative. #3. Dementia unclear type with unclear behavioral disturbance history: Complicates presentation, will maintain on fall and aspiration precautions, PT/OT/case management consulted for discharge planning. #4. Chronic macrocytic anemia: Admission hemoglobin initially 13.7; however, following diuresis, repeat 09/16/2023 hemoglobin 12.1, MCV 98.4->09/17/23 Hgb 12.2, baseline hemoglobin 12 range, stable. #5. Chronic Kidney Disease Stage II per GFR trending: Admission BUN/Cr 24/1.16, baseline renal function 1.0-1.1, baseline GFR appears primarily 76-84, current admission GFR initially 64 with repeat 09/16/23 82, 09/17/2023 BUN/creatinine 23/1.01. #6. History sick sinus syndrome: s/p pacemaker status. #7. Valvular heart disease: History of MV replacement unclear specific type, most recent echo as noted above. #8. Hypertension: Continue home regimen including Coreg, IV Lasix-->oral t orsemide as noted, PRN hydralazine. #9. Hyperlipidemia: Continue home statin regimen. #10. Anxiety and depression/panic attacks: We will continue patient home Paxil regimen. #11. PAF: We will continue patient home Coreg and Coumadin with INR trending, INR therapeutic upon presentation 2.6 and most recent repeat 09/16/23 INR 2.9. #12. Allergic rhinitis: We will continue patient on fluticasone regimen. #13. GERD: We will continue patient on PPI #14. DVT prophylaxis: Continue home Coumadin. #15. CODE status: Patient ASIA is his and living will is currently in place. DNR-CCA, no intubation status. Charges/Coding Visit Charges Inpatient E&M: 98864 Subs Hosp L2
[2023-09-17 07:03] VITALS: PULSE 59; RESP 16; O2SAT 91
[2023-09-17] MEDS: Ipratropium/Albuterol Sulfate 3 ML AMPUL.NEB INHALATION ×2 (07:03→13:17)
[2023-09-17 07:18] LABS: Absolute Lymphocyte Count 1.84 X10^3/uL (0.83-4.51); Basophil# 0.06 X10^3/uL; Basophil% 0.8 % (0-1); Eosinophil# 0.63 X10^3/uL; Eosinophils% 8.7 % (0-5); Hematocrit 36.1 % (40-54); Hemoglobin 12.2 g/dL (13.0-16.5); Lymphocyte # 1.84 X10^3/ul (0.83-4.51); Lymphocyte % 25.3 % (19-41); Mean Corp Hgb Conc 33.8 g/dL (32-36); Mean Corpuscular Hgb 32.8 pg (27.0-32.0); Mean Platelet Vol. 9.8 fl (6.2-12.0); Monocyte% 9.6 % (0-10); NRBC Flagged by Analyzer 0 % (0-5); Neutrophil # 4.01 X10^3/uL (2.7-7.7); Neutrophil % 55.3 % (47-70); Platelet Count 159 K/mm3 (150-450); RBC Distribution Width SD 57.7 fl (35.1-43.9); Red Blood Count 3.72 M/mm3 (4.6-6.2); White Blood Count 7.3 K/mm3 (4.4-11.0)
[2023-09-17 07:50] LABS: ALB/GLOB Ratio 0.7 RATIO (0.9-2.4); AST(SGOT) 35 U/L (15-37); Alanine Aminotransfer ALT/SGPT 19 U/L (16-61); Albumin, Serum 2.7 g/dL (3.2-5.0); Alkaline Phosphatase 310 U/L (45-117); Anion Gap 3 (5-15); BUN 23 mg/dL (7-18); BUN/Creat Ratio 22.8 RATIO (10-20); Calcium,Total 8.7 mg/dL (8.5-10.1); Chloride 102 mmol/L (98-107); Creatinine, Serum 1.01 mg/dL (0.70-1.30); EST Glomerular Filtration Rate 76 mL/min (>60); Est Glom Filt Rate - Afr Amer 91 mL/min (>60); Estimated Creatinine Clearance 62.13 ml/min; Globulin 3.8 g/dL (2.2-4.2); Glucose 89 mg/dL (74-106); Protein, Total 6.5 g/dL (6.4-8.2); Sodium Level 134 mmol/L (136-145)
[2023-09-17 09:00] VITALS: BP 110/65; PULSE 68; RESP 18; TEMP 36.6; O2SAT 93
[2023-09-17] MEDS: Furosemide 40 MG Tablet PO (09:01)
[2023-09-17] MEDS: Pantoprazole Sodium 40 MG Tablet PO (09:02)
[2023-09-17] MEDS: Paroxetine 20 MG Tablet PO (09:02)
[2023-09-17] MEDS: Carvedilol 3.125 MG TABLET PO (09:02)
[2023-09-17] MEDS: Potassium Chloride Oral Tablet 10 MEQ PO ×2 (09:02→16:56)
[2023-09-17 10:35] VITALS: O2SAT 89; O2SAT 92
--- NOTE | 2023-09-17 10:56 | CASEMGMT ---
Addendum entered by Sidra Chan 09/17/23 16:45: [facility] state they cannot accept the pt. Dr. Benton updated and state the pt will have to go home with outpt therapy. Pt updated and is agreeable to this plan. Addendum entered by Sidra Chan 09/17/23 16:37: Pt updated and aware that we will be in touch with him regarding HHC. Pt denies further needs at this time. Addendum entered by Sidra Chan 09/17/23 16:30: Kayli Discharge assistant food service director provided the pt with a list of new insurance providers. Pranav from [facility] state they will call us tomorrow regarding the HH referral. Addendum entered by [facility] Dustin 09/17/23 15:58: [facility] calls and state that Rebecca is the only person that can set up a referral like this. Pranav from [facility] states that Rebecca is busy the rest of the day but Pranav did send her a backline to see if they can accept the pt. Dr. Benton updated and Dr. Benton requests to give the pt a new list of insurance providers. Discharge assistant food service director notified. Addendum entered by Sidra Chan 09/17/23 15:05: The DC assistant food service director states there is no agency in network with the pt insurance and states that [facility] has accepted one time contracts with [facility] in the past. VIKY MACEDO to pt room and pt updated on status. Pt states he is agreeable to [facility] if they are able to accept him. [facility] called at this time with no answer, voice message left. Addendum entered by Sidra Chan 09/17/23 14:57: Dr. Benton states the pt would benefit more from HHC at this time and this RN HELLEN updated him on this and the pt states he would be willing to accept HHC. Pt has [employer] insurance and the [place] assistant food service director updated and will print a list off for the pt. Original Note: Pt states that he is still interested in OP therapy and states he will set up. Rx given to pt at this time, copy in chart.
[2023-09-17 13:17] VITALS: PULSE 61; RESP 16
--- NOTE | 2023-09-17 13:42 | CASEMGMT ---
Patient mentioned to Corporate Treasury Analyst that he had [employer] before his last hospitalization and then when he went back home the meals stopped. SW called [employer] and patient is not active with them. SW met with patient. Introduced self and role at [facility]. Patient confirmed he thought he had [employer] ([employer]). SW let patient know SW called [employer] and they do not have him as active. Patient asked if there were other options. SW provided patient with a list of home delivered meal companies. Patient said he will talk with his daughter about the list. Rianna Tanner CHILDREN'S SERVICE SUPERVISOR MARIBELL
--- NOTE | 2023-09-17 14:52 | DCINST_ITS ---
Discharge Instructions Diet Discharge Diet: Low fat / Low cholesterol Activity Discharge Activity: - (Encourage regular slow activity. Rest frequently.) May resume sexual activity in: No Restrictions Weight Bearing Status: Weight bearing as tolerated Dressing / Incision Call your doctor if you observe: Fever of 101 or Higher, Numbness or Tingling, Shortness of breath (Increasing, not improving with rest. Please contact your pulmonary office.), Dizziness, Fainting spells, Chest pain, Increased palpitations (irregular heartbeat) and Uncontrolled pain Follow Up Care Test Results: Test results from this visit will be discussed in further detail at your follow- up appointment, if applicable. Discharge Plan Admission Admit Date/Time: 09/15/23 18:50 Primary Reason for Your Visit: Hypoxia, HFpEF Exac, IPF/ILD Attending Provider: Patti Benton Primary Care Provider: Alejandra Lee Consulting Providers: Tami Palomo Instructions Additional Instructions / Restrictions: ADDITIONAL FOLLOW-UP: --Please have repeat INR testing outpatient per your usual regimen to assure INR appropriate level. --Please continue to work with outpatient therapies/home therapies. --Please continue to work with Social Work/Case Management to assure regular healthy cardiac meals are being delivered. --Please keep your visit with Pulmonary but do note that you are on the call list so please keep you phone available as they will call you if anything opens up earlier. --As discussed during inpatient please consider Palliative Care as they are the ideal team to assist with shortness of breath chronic complaints. Discharge Orders/Prescriptions Prescriptions: Continued carvedilol 3.125 mg tablet 3.125 mg PO BID atorvastatin [Lipitor] 20 mg Tablet 20 mg PO DAILY pantoprazole [Protonix] 20 mg Tablet,Delayed Release (Dr/Ec) 40 mg PO DAILY Patient Comments: pt states he takes as needed potassium chloride 10 mEq Tablet,Er Particles/Crystals 10 meq PO BIDCM Qty: 60 0RF Patient Comments: pt states he only takes in the morning torsemide 20 mg tablet 20 mg PO BID Qty: 60 0RF Patient Comments: pt states he only takes in the morning warfarin 2.5 mg tablet 2.5 mg PO SUMOTUTHFR Patient Comments: pt states he takes 2.5mg warfarin [Jantoven] 3 mg tablet 3 mg PO WESA Patient Comments: pt states he takes 2.5mg every day except he takes 3mg on friday and friday lisinopril 10 mg tablet 10 mg PO QHS paroxetine HCl 20 mg tablet 20 mg PO DAILY Referrals / Follow Up: Ember Estrada MD [Non-Staff] - 10/27/23 7:30 am (The office put you on the wait list in case they get a sooner appt. ) Adrian Lui MD [Med Staff - Active Staff] - (You may call to establish with Cardiology if preference to stay local instead of going to [place]. Please request first appt available.) MERCED DE DIOS PA [Non-Staff] - 09/23/23 7:40 am (Please follow-up with your Primary Care Office PA who will be able to see you earlier in appt that Dr. Lee. Please while you are there make a follow-up with Dr. Lee as well. If this does not work you may call to rearrange.) Disposition Disposition (needs filled in before D/C Order can be placed): Home Health Service
[2023-09-17 15:00] VITALS: BP 118/83; PULSE 90; RESP 18; TEMP 36.7; O2SAT 97
--- NOTE | 2023-09-17 15:02 | PCM.DC.SUM ---
Providers Date of Admission: 09/15/23 Date of Discharge: 09/17/23 Primary Care Physician: Dr. Alejandra Lee MD Reason For Visit: HYPOXIA, FLUID OVERLOAD Diagnosis Discharge Diagnosis (1) Congestive heart failure: Status: Acute Code(s): I50.9 - Heart failure, unspecified Plan: DISCHARGE DIAGNOSES: #1. Acute Hypoxia secondary to Acute Decompensated HFpEF although certainly could be component confounding presentation #2 #2. Idiopathic pulmonary fibrosis/interstitial lung disease #3. Dementia unclear type with unclear behavioral disturbance history #4. Chronic macrocytic anemia #5. Chronic Kidney Disease Stage II per GFR trending #6. History sick sinus syndrome s/p pacemaker status #7. Valvular heart disease W/ History of MV replacement #8. Hypertension #9. Hyperlipidemia #10. Anxiety and depression/panic attacks #11. PAF on coumadin #12. Allergic rhinitis #13. GERD #14. CODE status: Patient ASIA is his and living will is currently in place. DNR-CCA, no intubation status Medications at Discharge Home Medications carvedilol 3.125 mg tablet 3.125 mg PO BID blood pressure 08/27/17 atorvastatin 20 mg tablet (Lipitor) 20 mg PO DAILY cholesterol 04/22/22 pantoprazole 20 mg tablet,delayed release (Protonix) 40 mg PO DAILY acid reflux 04/22/22 potassium chloride 10 mEq tablet,extended release(part/cryst) 10 meq PO BIDCM #60 tabs 08/26/23 torsemide 20 mg tablet 20 mg PO BID #60 tabs 08/26/23 lisinopril 10 mg tablet 10 mg PO QHS blood pressure 09/12/23 paroxetine HCl 20 mg tablet 20 mg PO DAILY depression 09/12/23 warfarin 2.5 mg tablet 2.5 mg PO SUMOTUTHFR blood thinner 09/12/23 warfarin 3 mg tablet (Jantoven) 3 mg PO WESA 09/12/23 Hospital Course Operations None Procedures EKG Summary of Care Provided Minutes Spent on Discharge: 35 Hospital Course: The patient is a 77 y/o M w/ PMHx: CKD stage II per GFR trending, Allergic rhinitis, GERD, Anxiety and Depression/Panic attacks, Chronic bradycardia, HTN, HLD, Hx Sick Sinus Syndrome s/p pacemaker status, Dementia unclear type with unclear behavioral disturbance history, Chronic AF, Valvular Heart Disease, Interstitial lung disease/Pulmonary fibrosis, Chronic anemia, HFpEF, recent admission 08/21/23-08/26/23 following evaluation and care of acute on chronic diastolic heart failure, hypoxia associated who now represented to the [facility] ED on 09/15/23 with history of worsening dyspnea over the past 4 days with chest tightness and a cough noted to be nonproductive if no recent fevers or chills. Oxygenation the ED noted to be 85% on room air as well as chest x-ray with interstitial edema versus congestive heart failure, BNP 176.4, troponin within normal noted 18 with repeat delta also 18. Admitted to PCU, maintained on cardiac telemetry, IV lasix diuresis-->restarted oral torsemide 09/16/23 evening, monitor I/Os, continued medical therapy, recent normal TSH, mag requested. Recent admission ECHO 08/21/23 w/ LVEF 50%, normal LV size, LV systolic function lower limit normal, PASP 40 mmHg, bioprosthetic mitral valve. Weight appropriately decreased with no orthopnea and no ambulatory oxygen needs. PT/OT/CM consulted for discharge planning. PT/OT with home therapies encouraged as well as meal delivery. During admission patient noted recent intention to transition to Dr. Estrada pulmonary medicine with [facility] as previously followed with [facility] but unfortunately insurance does not allow this transition, thus was able to make appt with [facility] pulmonary Ember Carlos and patient also radiation oncologist list for earlier visit. Discussed his current lung disease and the likelihood of it progressing. Did talk patient through the course of this type of lung disease and noted that at some point he would likely need oxygen. Also discussed possibly future need for consideration palliative care consultation for chronic dyspnea. Full respiratory viral negative. Admission hemoglobin initially 13.7; however, following diuresis, repeat 09/16/2023 hemoglobin 12.1, MCV 98.4->09/17/23 Hgb 12.2, baseline hemoglobin 12 range. Admission BUN/Cr 24/1.16, baseline renal function 1.0-1.1, baseline GFR appears primarily 76-84, current admission GFR initially 64 with repeat 09/16/23 82, 09/17/2023 BUN/creatinine 23/1.01. Given clinical improvement patient discharged to home. Weight / BMI Weight Weight: 168 lb 10.458 oz Body Mass Index (BMI) 23.5 ABG / Lab / Microbiology Data 09/17/23 06:45 09/17/23 06:45 Laboratory: Laboratory Results - last 24 hr 09/17/23 06:45: WBC 7.3, RBC 3.72 L, Hgb 12.2 L, Hct 36.1 L, MCV 97.0 H, MCH 32.8 H, MCHC 33.8, RDW Std Deviation 57.7 H, RDW Coeff of Darnell 16.0 H, Plt Count 159, MPV 9.8, Immature Gran % (Auto) 0.300, Neut % (Auto) 55.3, Lymph % (Auto) 25.3, [place] % (Auto) 9.6, Eos % (Auto) 8.7 H, Baso % (Auto) 0.8, Absolute Neuts (auto) 4.0, Absolute Lymphs (auto) 1.84, Nucleated RBC % 0, Sodium 134 L, Potassium 4.0, Chloride 102, Carbon Dioxide 29.0, Anion Gap 3 L, BUN 23 H, Creatinine 1.01, Estim Creat Clear Calc 62.13, Est GFR (MDRD) Af Amer 91, Est GFR (MDRD) Non-Af 76, BUN/Creatinine Ratio 22.8 H, Glucose 89, Calcium 8.7, Total Bilirubin 1.20 H, AST 35, ALT 19, Alkaline Phosphatase 310 H, Total Protein 6.5, Albumin 2.7 L, Globulin 3.8, Albumin/Globulin Ratio 0.7 L Microbiology: Microbiology 09/15/23 20:32 Mucosa - Nasopharyngeal Respiratory Panel (PCR) - Final 09/15/23 13:24 Mucosa - Nose SARS-CoV-2, Influenza & RSV (PCR) - Final D/C Instructions Discharge Diet: Low fat / Low cholesterol May resume sexual activity in: No Restrictions Weight Bearing Status: Weight bearing as tolerated Call your doctor if you observe: Fever of 101 or Higher, Numbness or Tingling, Shortness of breath (Increasing, not improving with rest. Please contact your pulmonary office.), Dizziness, Fainting spells, Chest pain, Increased palpitations (irregular heartbeat) and Uncontrolled pain Meaningful Use Info Meaningful Use Diagnoses (Choose all that apply): CHF CHF ESTHER/ARB ordered at discharge?: Yes Documented LVEF (%): 50 Discharge Plan Admission Admit Date/Time: 09/15/23 18:50 Primary Reason for Your Visit: Hypoxia, HFpEF Exac, IPF/ILD Attending Provider: Patti Benton Primary Care Provider: Alejandra Lee Consulting Providers: Tami Palomo Instructions Additional Instructions / Restrictions: ADDITIONAL FOLLOW-UP: --Please have repeat INR testing outpatient per your usual regimen to assure INR appropriate level. --Please continue to work with outpatient therapies/home therapies. --Please continue to work with Social Work/Case Management to assure regular healthy cardiac meals are being delivered. --Please keep your visit with Pulmonary but do note that you are on the call list so please keep you phone available as they will call you if anything opens up earlier. --As discussed during inpatient please consider Palliative Care as they are the ideal team to assist with shortness of breath chronic complaints. Discharge Orders/Prescriptions Prescriptions: Continued carvedilol 3.125 mg tablet 3.125 mg PO BID atorvastatin [Lipitor] 20 mg Tablet 20 mg PO DAILY pantoprazole [Protonix] 20 mg Tablet,Delayed Release (Dr/Ec) 40 mg PO DAILY Patient Comments: pt states he takes as needed potassium chloride 10 mEq Tablet,Er Particles/Crystals 10 meq PO BIDCM Qty: 60 0RF Patient Comments: pt states he only takes in the morning torsemide 20 mg tablet 20 mg PO BID Qty: 60 0RF Patient Comments: pt states he only takes in the morning warfarin 2.5 mg tablet 2.5 mg PO SUMOTUTHFR Patient Comments: pt states he takes 2.5mg warfarin [Jantoven] 3 mg tablet 3 mg PO WESA Patient Comments: pt states he takes 2.5mg every day except he takes 3mg on friday and friday lisinopril 10 mg tablet 10 mg PO QHS paroxetine HCl 20 mg tablet 20 mg PO DAILY Referrals / Follow Up: Ember Estrada MD [Non-Staff] - 10/27/23 7:30 am (The office put you on the wait list in case they get a sooner appt. ) Adrian Lui MD [Med Staff - Active Staff] - (You may call to establish with Cardiology if preference to stay local instead of going to [place]. Please request first appt available.) MERCED DE DIOS PA [Non-Staff] - 09/23/23 7:40 am (Please follow-up with your Primary Care Office PA who will be able to see you earlier in appt that Dr. Lee. Please while you are there make a follow-up with Dr. Lee as well. If this does not work you may call to rearrange.) Disposition Disposition (needs filled in before D/C Order can be placed): Home Health Service Charges/Coding Visit Charges Inpatient E&M: 44242 Disch Hosp >30min
--- NOTE | 2023-09-17 16:53 | CASEMGMT ---
VIKY MACEDO into pt room, pt is aware that [facility] cannot accept. He called his dtr Deisy and had her on speaker phone. She is also aware that [facility] could not accept pt. She is aware that pt has a rx for outpt therapy. Pt wishes to use [facility]. She is aware that the hospital van could take pt to these appts. She asks for phone number to [facility], will place on dc instructions. She states her niece will be with pt Friday and they can assist setting up the initial appt then follow with the van. She is aware that [facility] will coordinate the following visits after the eval with the van. She is also aware that the physician asked for pt to receive a list of other options for insurance and this was provided to pt. She asks pt to give this to Sommer and then she will discuss with her and work on trying to change the insurance. Deisy asks if the nurse can go over the dc instructions with her on speaker also. Updated pt nurse on this request. Pt and dtr deny any further needs.
== END 2023-09-17 17:44 | disposition home or self-care (01) | DRG 291 ==
LOC: ED 18:47 → PCU 19:19
PROVIDERS: Admitting Provider Internal Medicine; Emergency Provider Emergency Medicine; PCP Internal Medicine; Visit Provider Family Medicine
DX: I13.0 Hypertensive heart and chronic kidney disease with heart failure and stage 1 through stage 4 chronic kidney disease, or unspecified chronic kidney disease (principal); I50.33 Acute on chronic diastolic (congestive) heart failure; I48.20 Chronic atrial fibrillation, unspecified; J84.112 Idiopathic pulmonary fibrosis; E86.0 Dehydration; F03.90 Unspecified dementia, unspecified severity, without behavioral disturbance, psychotic disturbance, mood disturbance, and anxiety; F32.A Depression, unspecified; D53.9 Nutritional anemia, unspecified; E78.5 Hyperlipidemia, unspecified; K21.9 Gastro-esophageal reflux disease without esophagitis; N18.2 Chronic kidney disease, stage 2 (mild); J30.9 Allergic rhinitis, unspecified; Z95.3 Presence of xenogenic heart valve; Z79.01 Long term (current) use of anticoagulants; F41.0 Panic disorder [episodic paroxysmal anxiety]; Z66 Do not resuscitate; Z11.52 Encounter for screening for COVID-19; R09.02 Hypoxemia; Z79.899 Other long term (current) drug therapy; Z95.0 Presence of cardiac pacemaker
CPT/HCPCS: 36415; 71045; 80048; 80053; 83735; 83880; 84484; 85025; 85610; 87631; 87633; 93005; 94640; 94668; 97162; 97802; 99252; 99285; A4216; G0463; J1940

== ENCOUNTER → 2023-10-14 | Outpatient (CLI) | payer MEDICARE, SELFPAY ==
[2022-07-22 08:19] VITALS: BMI 24.4
== END | disposition home or self-care (01) ==
PROVIDERS: PCP Internal Medicine; Referring Provider Pharmacist Pharmacist Clinician (PhC)/ Clinical Pharmacy Specialist; Visit Provider Pharmacist Pharmacist Clinician (PhC)/ Clinical Pharmacy Specialist
DX: R06.09 Other forms of dyspnea (principal); I50.42 Chronic combined systolic (congestive) and diastolic (congestive) heart failure; I95.9 Hypotension, unspecified
CPT/HCPCS: 83880